=== PATIENT | female | born 1975 | race Caucasian/White ===

== ENCOUNTER 2023-12-24 18:33 | Observation (INO) | payer OTHER, SELFPAY ==
[2023-12-24 18:41] VITALS: BP 132/77; PULSE 66; TEMP 36.7; O2SAT 97; BMI 30.2
--- NOTE | 2023-12-24 18:49 | CT_ITS ---
[facility] [id number] Patient Name: KELLI LAKE MRN: [id number] date: 1975 Sex: F Assigned Patient Location: ER Current Patient Location: ER Accession/Order Number: [id number] Exam Date: 12/24/2023 19:28 Report Date: 12/24/2023 20:20 At the request of: CASS ENCINAS Procedure: CT abdomen pelvis w con EXAMINATION: CT abdomen pelvis w con, 12/24/2023 4:28 PM PDT HISTORY: rlq pain COMPARISON: None. TECHNIQUE: CT scan of the abdomen and pelvis was performed with IV contrast. CT dose reduction technique was used, including Automated Exposure Control. FINDINGS: Lung: No significant finding. Liver: No significant finding. Gallbladder: No significant finding. Spleen: No significant finding. Pancreas: No significant finding. Adrenal glands: No significant finding. Kidneys, ureters and bladder: No significant finding. Bowel: Wall thickening of the rectum. No evidence of bowel obstruction. Normal appendix. Mild wall thickening of the descending colon and sigmoid colon. Peritoneum/retroperitoneum: No significant finding. Lymph nodes: No significant finding. Vessels: No significant finding. Body wall: No significant finding. Reproductive: No significant finding. Bones: Severe thoracic scoliosis and partially imaged spinal hardware. CT/CT abdomen pelvis w con IMPRESSION: Proctitis and colitis of the descending and sigmoid colon. Normal appendix. Electronically authenticated by: MILTON BRAMBILA Date: 12/24/2023 20:20
[2023-12-24] MEDS: ONDANSETRON PF 4 MG/2 ML VIAL IV (19:02)
[2023-12-24] MEDS: 0.9 % SODIUM CHLORIDE 1,000 ML 1000 ML IV (19:02)
[2023-12-24 19:11] LABS: Basophils Absolute Auto 0.1 10^3/uL (0.0-0.1); Basophils Percent Auto 0.5 % (0.2-2.0); Eosinophils Percent Auto 0.2 % (0.9-7.0); Hematocrit 36.8 % (36.0-48.0); Hemoglobin 11.1 g/dL (12.0-16.0); Immature Granulocytes Abs Auto 0.03 10^3/uL (0.00-0.03); Immature Granulocytes Pct Auto 0.2 % (0.0-0.5); Lymphocytes Percent Auto 7.8 % (20.5-60.0); Mean Corpuscular HGB Conc 30.2 g/dL (29.9-35.2); Mean Corpuscular Hemoglobin 23.7 pg (26.7-34.0); Mean Corpuscular Volume 78.6 fL (81.0-99.0); Mean Platelet Volume 10.6 fL (9.5-13.5); Monocytes Absolute Auto 0.2 10^3/uL (0.3-0.8); Monocytes Percent Auto 1.9 % (1.7-12.0); Neutrophils Absolute Auto 10.9 10^3/uL (1.4-6.5); Neutrophils Percent Auto 89.4 % (43.0-75.0); Platelet Count 299 10^3/uL (150-450); Red Blood Count 4.68 10^6/uL (4.20-5.40); Red Cell Distribution Width 17.3 % (11.0-15.0); White Blood Count 12.2 10^3/uL (4.0-11.0)
[2023-12-24 19:26] LABS: Anion Gap 10.7; Carbon Dioxide 25.8 mmol/L (21.0-32.0); Chloride 102 mmol/L (98-107); Estimated GFR (African America >60 (>=60); Glucose 110 mg/dL (74-106); Potassium 3.5 mmol/L (3.5-5.1); Sodium 135 mmol/L (136-145)
[2023-12-24 19:27] LABS: Alanine Aminotransferase 24 U/L (14-59); Albumin Globulin Ratio 0.8; Alkaline Phosphatase 86 U/L (46-116); Aspartate Amino Transferase 21 U/L (15-37); BUN Creatinine Ratio 5.6; Bilirubin Total 0.4 mg/dL (0.2-1.0); Calcium 9.3 mg/dL (8.5-10.1); Estimated GFR (Non-African Ame >60 (>=60); Globulin 4.8 g/dL; Total Protein 8.8 g/dL (6.4-8.2)
[2023-12-24] MEDS: KETOROLAC TROMETHAMINE 30 MG/ML VIAL IVP (19:39)
[2023-12-24] MEDS: PROMETHAZINE HCL 25 MG/ML VIAL 12.5 MG IV (19:50)
[2023-12-24] MEDS: MORPHINE SULFATE 2 MG/ML SYRINGE IV (20:27)
--- NOTE | 2023-12-24 20:30 | ED_ITS ---
HPI - Abdominal Pain General Chief Complaint: Abdominal Pain Stated Complaint: nausea/vomitting Time Seen by Provider: 12/24/23 18:43 Source: patient Mode of arrival: walk-in Limitations: no limitations History of Present Illness HPI narrative: 48-year-old female presents here with chief complaint of acute onset of abdominal pain. Patient states pain began several hours prior to arrival. She complains of centralized abdominal pain. She states she has had a lot of stool today. Most pain nausea vomiting began after she ate tomato soup earlier today. Patient does appear uncomfortable. She is not toxic. She is not febrile. Related Data Home Medications ?Medication ?Instructions ?Recorded ?Confirmed escitalopram oxalate 5 mg tablet mg 12/24/23 Allergies Allergy/AdvReac Type Severity Reaction Status Date / Time No Known Drug Allergies Allergy Verified 12/24/23 18:41 Review of Systems ROS Narrative All Systems are negative except as noted/marked.All systems reviewed and otherwise negative Exam Narrative Exam Narrative: Nurses note and vital signs reviewed and patient is not hypoxic. General: The patient appears well and in no apparent distress. Patient is resting comfortably on cart. Skin: Warm, dry, no pallor noted. There is no rash noted. Head: Normocephalic, atraumatic Eye: Normal conjunctiva, no drainage, EOMI. PERRL Ears, Nose, Mouth, and Throat: oral mucosa is moist. Nares patent. Mouth without vesicles. Ear canals patent. Tm's without Erythema Cardiovascular: Regular Rate and Rhythm Respiratory: Patient is in no distress, no accessory muscle use, lungs are clear to auscultation, no wheezing, rales or rhonchi Back: non-tender, no CVA tenderness bilaterally to percussion. GI: diffuse abdominal tenderness, Normal bowel sounds, no masses appreciated. No rebound, guarding, or rigidity noted. Musculoskeletal: The patient has no evidence of calf tenderness, no pitting edema, symmetrical pulses noted bilaterally Neurological: A&O x4, normal speech Psychiatric: Cooperative Constitutional Vital Signs, click to edit/add: Last Vital Signs Temp 98.0 F 12/24/23 18:41 Pulse 66 12/24/23 18:41 Resp 16 12/24/23 18:41 BP 132/77 12/24/23 18:41 Pulse Ox 97 12/24/23 18:41 Course Vital Signs Vital signs: Vital Signs Temperature 98.0 F 12/24/23 18:41 Pulse Rate 66 12/24/23 18:41 Respiratory Rate 16 12/24/23 18:41 Blood Pressure 132/77 12/24/23 18:41 Pulse Oximetry 97 12/24/23 18:41 Temperature 98.0 F 12/24/23 18:41 Pulse Rate 66 12/24/23 18:41 Respiratory Rate 16 12/24/23 18:41 Blood Pressure 132/77 12/24/23 18:41 Pulse Oximetry 97 12/24/23 18:41 MDM - Abdominal Pain MDM Narrative Medical decision making narrative: 48-year-old female was brought to the emergency room chief complaint of nausea, vomiting abdominal pain and diarrhea. Patient presented here accompanied with her mother. She denies any known history of colitis. Upon arrival here to the emergency room patient had IV established was given fluids pain and Zofran. Symptoms did improve. CT scan was done and showed she has proctitis and colitis. IV Cipro and Flagyl have been ordered. Patient is not comfortable being discharged home. CBC and CMP were reviewed. Patient has a slightly low sodium 135 and a white blood cell count of 12. Differential Diagnosis Differential diagnosis: Likely abdominal pain, diverticulitis and gastroenteritis Medical Records Attestation: I reviewed the patient's medical records. Lab Data Attestation: I reviewed the patient's lab results. Labs: Lab Results 12/24/23 Range/Units 19:00 WBC 12.2 H (4.0-11.0) 10^3/uL RBC 4.68 (4.20-5.40) 10^6/uL Hgb 11.1 L (12.0-16.0) g/dL Hct 36.8 (36.0-48.0) % MCV 78.6 L (81.0-99.0) fL MCH 23.7 L (26.7-34.0) pg MCHC 30.2 (29.9-35.2) g/dL RDW 17.3 H (11.0-15.0) % Plt Count 299 (150-450) 10^3/uL MPV 10.6 (9.5-13.5) fL Neut % (Auto) 89.4 H (43.0-75.0) % Lymph % (Auto) 7.8 L (20.5-60.0) % [place] % (Auto) 1.9 (1.7-12.0) % Eos % (Auto) 0.2 L (0.9-7.0) % Baso % (Auto) 0.5 (0.2-2.0) % Neut # (Auto) 10.9 H (1.4-6.5) 10^3/uL Lymph # (Auto) 1.0 L (1.2-3.8) 10^3/uL [place] # (Auto) 0.2 L (0.3-0.8) 10^3/uL Eos # (Auto) 0.0 (0.0-0.7) 10^3/uL Baso # (Auto) 0.1 (0.0-0.1) 10^3/uL Abs Immat Gran (auto) 0.03 (0.00-0.03) 10^3/uL Imm/Tot Granulo (auto) 0.2 (0.0-0.5) % Sodium 135 L (136-145) mmol/L Potassium 3.5 (3.5-5.1) mmol/L Chloride 102 (98-107) mmol/L Carbon Dioxide 25.8 (21.0-32.0) mmol/L Anion Gap 10.7 BUN 5.0 L (7.0-18.0) mg/dL Creatinine 0.90 (0.55-1.02) mg/dL Est GFR ( Amer) >60 (>=60) Est GFR (Non-Af Amer) >60 (>=60) BUN/Creatinine Ratio 5.6 Glucose 110 H (74-106) mg/dL Calcium 9.3 (8.5-10.1) mg/dL Total Bilirubin 0.4 (0.2-1.0) mg/dL AST 21 (15-37) U/L ALT 24 (14-59) U/L Alkaline Phosphatase 86 (46-116) U/L Total Protein 8.8 H (6.4-8.2) g/dL Albumin 4.0 (3.4-5.0) g/dL Globulin 4.8 g/dL Albumin/Globulin Ratio 0.8 Lipase 55.0 (16.0-77.0) U/L Imaging Data CT scan - abdomen: Radiologist's impression: ITS Impressions Abdomen/Pelvis CT 05/03/24 18:49 IMPRESSION: Proctitis and colitis of the descending and sigmoid colon. Normal appendix. Electronically authenticated by: MILTON BRAMBILA Date: 12/24/2023 20:20 Discharge Plan Discharge Chief Complaint: Abdominal Pain Clinical Impression: Acute proctitis, Colitis Patient Disposition: Admitted as Observation Time of Disposition Decision: 20:46 Condition: Fair
[2023-12-24] MEDS: METRONIDAZOLE/SODIUM CHLORIDE 500 MG/100 ML PREMIX 100 MG IV (20:48)
[2023-12-24] MEDS: CIPROFLOXACIN IN 5 % DEXTROSE 400 MG/200 ML PIGGYBACK 200 MG IV (21:39)
[2023-12-24 22:23] VITALS: BP 143/74; PULSE 64; TEMP 36.6; O2SAT 100
[2023-12-24] MEDS: HYDROMORPHONE HCL 0.5 MG/0.5 ML SYRINGE IV (22:27)
[2023-12-24 22:48] VITALS: BP 140/62; PULSE 56; TEMP 36.3; O2SAT 98; BMI 28.7
[2023-12-24] MEDS: 0.9 % SODIUM CHLORIDE 1,000 ML 125 ML IV (23:42)
[2023-12-25] MEDS: ONDANSETRON PF 4 MG/2 ML VIAL IV ×3 (02:04→16:37)
[2023-12-25 03:17] VITALS: BP 145/78; PULSE 50; TEMP 36.7; O2SAT 96
[2023-12-25] MEDS: KETOROLAC TROMETHAMINE 30 MG/ML VIAL 15 MG IVP ×3 (03:33→16:36)
[2023-12-25] MEDS: METRONIDAZOLE/SODIUM CHLORIDE 500 MG/100 ML PREMIX 100 MG IV (05:24)
[2023-12-25 05:37] LABS: Hematocrit 32.3 % (36.0-48.0); Hemoglobin 9.7 g/dL (12.0-16.0); Mean Corpuscular Hemoglobin 23.8 pg (26.7-34.0); Mean Corpuscular Volume 79.2 fL (81.0-99.0); Platelet Count 232 10^3/uL (150-450); Red Blood Count 4.08 10^6/uL (4.20-5.40); Red Cell Distribution Width 17.3 % (11.0-15.0); White Blood Count 11.9 10^3/uL (4.0-11.0)
[2023-12-25 05:48] LABS: Anion Gap 17.8; BUN Creatinine Ratio 5.8; Carbon Dioxide 20.1 mmol/L (21.0-32.0); Chloride 102 mmol/L (98-107); Estimated GFR (African America >60 (>=60); Estimated GFR (Non-African Ame >60 (>=60); Glucose 157 mg/dL (74-106); Potassium 3.9 mmol/L (3.5-5.1); Sodium 136 mmol/L (136-145)
[2023-12-25 08:13] VITALS: BP 146/73; PULSE 65; TEMP 36.9; O2SAT 99
[2023-12-25] MEDS: 0.9 % SODIUM CHLORIDE 1,000 ML 125 ML IV (08:27)
[2023-12-25] MEDS: MORPHINE SULFATE 2 MG/ML SYRINGE IV (08:27)
[2023-12-25] MEDS: ENOXAPARIN SODIUM 40 MG/0.4 ML SYRINGE SUBQ (10:30)
[2023-12-25] MEDS: HYOSCYAMINE SULFATE 0.125 MG TAB.SUBL SL ×2 (10:30→13:45)
[2023-12-25] MEDS: ESCITALOPRAM 10 MG TABLET 5 MG PO (10:30)
[2023-12-25] MEDS: PANTOPRAZOLE SODIUM 40 MG VIAL IV (10:31)
[2023-12-25] MEDS: CEFTRIAXONE 1,000 MG in 0.9 % SODIUM CHLORIDE 50 ML 100 MG IV (10:34)
[2023-12-25 11:49] VITALS: O2SAT 98
--- NOTE | 2023-12-25 11:51 | PM.HP ---
HPI H&P: HPI History of Present Illness Chief complaint: nausea/vomitting Acute proetitis colitis Narrative: HPI and Hospital Course: 48 y o female presented to ED with one day hx of non bloody/non bilious vomiting along with watery diarrhea and generalized abdominal pain. She was evaluated in ED last night and admitted for intractable nausea/vomiting and abdominal pain due to colitis. Patient when seen earlier today was reporting poorly controlled left sided abdominal pain. She also reported loss of appetite and feeling nauseous. She did not have any diarrhea overnight but vomited once since admission She was treated with IV hydration, zofran as needed for nausea, levsin for abdominal pain and rocephin plus flagly for colitis. She was reassess in the afternoon and patient reported feeling better than earlier today. She tolerated soft diet. Her nasuea and abdominal pain was better compared to in the morning. Since her symptoms improved, I discussed with the patient and I feel she is medically stable for discharge. She was instructed to return to ED if symptoms worsened. Opioid HPI Opioid Management Most Recent Opioid Data: Last Pain Scale 4 12/25/23 13:00 Last Pain Assessment 12/25/23 13:00 Last ED Pain Assessment 12/24/23 22:24 Last MAR Pain Assessment 12/25/23 11:31 Last ORT Total Score 5 12/24/23 22:48 Last ORT Risk Category Moderate Risk 12/24/23 22:48 Review of Systems ROS Status of ROS 10 or more systems reviewed and unremarkable except as noted in history and below [facility] Medical History (Updated 12/25/23 @ 14:08 by Shaikh Suleman MD) 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 of left artificial elbow joint (ICD-10) Scoliosis ?M41.9 - Scoliosis, unspecified (ICD-10) Family History (Updated 12/24/23 @ 23:13 by Emelina Espinoza) Mother Family history of CHF (congestive heart failure) Family history of cancer Family history of hypertension Family history of myocardial infarction Family history of stroke Father Family history of cancer Social History (Updated 12/24/23 @ 23:15 by Emelina Espinoza) Within the past year, how often did you have a drink containing alcohol: monthly or less Within the past year, how often did you have six or more drinks on one occasion: less than monthly Smoking status: Former smoker Non-prescribed substance use: cannabis (any form) Previous occupational history: Does not Work Known occupational exposures/hazards: No Highest level of school completed/degree received: high school graduate Do you want help with school or training: No Are you now , , , , never or living with a partner: never In a typical week, how many times do you talk on the telephone with family, friends, or neighbors: 3 or more times per week How often do you get together with friends or relatives: 3 or more times per week How often do you attend restorationism or mormonism services: never Do you belong to any clubs or organizations such as restorationism groups unions, [employer] or athletic groups, or school groups: no Total score: 1 Score interpretation: A score of less than or equal to 1 indicates the most socially isolated. Little interest or pleasure in doing things: not at all Feeling down, depressed, or hopeless: not at all Feel stressed/tense/nervous/anxious/difficulty sleeping: not at all Due to disability, difficulty making decisions: No Do you think of yourself as: straight/heterosexual Gender Identity: female Meds Home Medications and Allergies Home Medications ?Medication ?Instructions ?Recorded ?Confirmed ?Type escitalopram oxalate 5 mg tablet 5 mg PO DAILY 12/24/23 12/25/23 History Allergies Allergy/AdvReac Type Severity Reaction Status Date / Time No Known Drug Allergies Allergy Verified 12/24/23 18:41 Exam Constitutional Vital Signs, click to edit/add: Last Vital Signs Temp 98.4 F 12/25/23 08:13 Pulse 65 12/25/23 08:13 Resp 18 12/25/23 08:13 BP 146/73 H 12/25/23 08:13 Pulse Ox 98 12/25/23 11:49 O2 Del Method Room Air 12/25/23 11:49 Common normals: no apparent distress, average body habitus and oriented x3 General appearance: cooperative and comfortable Respiratory Common normals: normal respiratory effort, no use of accessory muscles and clear to auscultation bilaterally Effort & inspection: able to speak in complete sentences GI Common normals: Normal to inspection, nondistended, normoactive bowel sounds present, soft to palpation, non-tender and no hepatosplenomegaly Back & Pelvis Other: severe scoliosis of spine Extremity Common normals: normal to inspection and full ROM Neuro Common normals: oriented x3, moves all extremities, no focal motor deficits and no sensory deficits noted Psych Common normals: mental status grossly normal, thought process normal, denies homicidal ideation and denies suicidal ideation Results Labs Labs: Short CBC 12/24/23 12/25/23 Range/Units 19:00 05:00 WBC 12.2 H 11.9 H (4.0-11.0) 10^3/uL Hgb 11.1 L 9.7 L (12.0-16.0) g/dL Hct 36.8 32.3 L (36.0-48.0) % Plt Count 299 232 (150-450) 10^3/uL BMP 12/24/23 12/25/23 19:00 05:00 Sodium 135 L 136 Potassium 3.5 3.9 Chloride 102 102 Carbon Dioxide 25.8 20.1 L BUN 5.0 L 5.0 L Creatinine 0.90 0.86 Glucose 110 H 157 H Calcium 9.3 9.0 Liver Function 12/24/23 Range/Units 19:00 Total Bilirubin 0.4 (0.2-1.0) mg/dL AST 21 (15-37) U/L ALT 24 (14-59) U/L Alkaline Phosphatase 86 (46-116) U/L Albumin 4.0 (3.4-5.0) g/dL Assessment and Plan Assessment and Plan (1) Nausea and vomiting: Qualifiers: Vomiting type: unspecified Qualified Code(s): R11.2 - Nausea with vomiting, unspecified (2) Colitis: (3) Acute proctitis: (4) Dehydration: (5) Abdominal pain: Qualifiers: Abdominal location: left lower quadrant Qualified Code(s): R10.32 - Left lower quadrant pain Plan Patient presented with nausea, vomiting, diarrhea and abdominal pain. Work up revealed left sided colitis and proctitis. Patient treated with IV fluids, anti emetics and IV abx. Patient's symptoms improved. She tolerated PO diet with resolution of her abdominal pain, nausea and vomiting. Stable for discharge. Patient educated on worrisome signs and symptoms that should prompt her to seek care Will d/c on PO abx. Patient asked to follow up with PCP in one week
[2023-12-25] MEDS: METRONIDAZOLE 250 MG TABLET 500 MG PO (13:45)
--- NOTE | 2023-12-27 15:24 | CM.DCFOLLOWU ---
Person spoke with: patient How are you feeling? better How is your pain? no pain now Did you understand your discharge instructions? yes Do you have any questions about your discharge instructions? no Were you given any prescriptions at discharge? yes Were you able to get your prescriptions filled? yes Do you understand how to take your medications as ordered? yes Do you have any questions about your follow up appointment and do you plan to keep your follow up appointment? no questions, will call PCP tomorrow to schedule follow up Is there anything else that you would like to discuss? no Questions/Comments/Concerns/Other: N/A
== END 2023-12-25 17:00 | disposition home or self-care (01) ==
LOC: ER 22:34 → MS 22:43
PROVIDERS: Physician Assistant; Registered Nurse; Admitting Provider Internal Medicine; Emergency Provider Emergency Medicine; PCP Nurse Practitioner Family; Visit Provider Internal Medicine
DX: K52.9 Noninfective gastroenteritis and colitis, unspecified (principal); K62.89 Other specified diseases of anus and rectum; E86.0 Dehydration; R10.32 Left lower quadrant pain; R11.2 Nausea with vomiting, unspecified; Z96.622 Presence of left artificial elbow joint; M41.9 Scoliosis, unspecified; Z87.891 Personal history of nicotine dependence; F12.90 Cannabis use, unspecified, uncomplicated; Z79.899 Other long term (current) drug therapy
CPT/HCPCS: 36415; 74177; 80048; 80053; 83690; 85025; 85027; 94761; 96361; 96365; 96366; 96367; 96372; 96375; 96376; 99285; G0378; J1170; Q9967

== ENCOUNTER 2023-12-27 07:46 | Emergency (ER) | payer OTHER, SELFPAY ==
[2023-12-27 07:49] VITALS: BP 153/78; PULSE 56; TEMP 36.5; O2SAT 99; BMI 30.2
--- NOTE | 2023-12-27 08:00 | ED_ITS ---
HPI - Abdominal Pain General Chief Complaint: Abdominal Pain Stated Complaint: ABDOMINAL PAIN Time Seen by Provider: 12/27/23 07:53 Source: patient Mode of arrival: walk-in Limitations: no limitations History of Present Illness HPI narrative: 48-year-old female presents for abdominal pain. 3 days ago she presented to this emergency department and was diagnosed with colitis and proctitis. She was admitted overnight and was given IV antibiotics. She went home 2 days ago and was discharged home on oral antibiotics. The pain persists and is moderate. No hematemesis or fever or injury. Related Data Home Medications ?Medication ?Instructions ?Recorded ?Confirmed escitalopram oxalate 5 mg tablet 5 mg PO DAILY 12/24/23 12/27/23 Previous Rx's ?Medication ?Instructions ?Recorded ciprofloxacin HCl 500 mg tablet 500 mg PO BID 7 days #14 tabs 12/25/23 hyoscyamine sulfate 0.125 mg 0.125 mg PO Q8H PRN dyspepsia #30 12/25/23 sublingual tablet (Levsin/SL) tabs metronidazole 500 mg tablet 500 mg PO Q8H 7 days #21 tabs 12/25/23 ondansetron HCl 4 mg tablet 4 mg PO Q8H PRN nausea and 12/25/23 vomiting 4 days #10 tabs hydrocodone 5 mg-acetaminophen 325 1 tab PO Q6H PRN pain 5 days #20 12/27/23 mg tablet tabs ondansetron 4 mg disintegrating 4 mg PO Q6H PRN nausea and 12/27/23 tablet vomiting #20 tabs Allergies Allergy/AdvReac Type Severity Reaction Status Date / Time No Known Drug Allergies Allergy Verified 12/27/23 07:54 Review of Systems ROS Narrative A ten point review of systems is negative except as noted above. PFSH [facility] Medical History (Updated 12/27/23 @ 09:48 by Will Castañeda MD) 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 of left artificial elbow joint (ICD-10) Scoliosis ?M41.9 - Scoliosis, unspecified (ICD-10) Family History (Updated 12/24/23 @ 23:13 by Emelina Espinoza) Mother Family history of CHF (congestive heart failure) Family history of cancer Family history of hypertension Family history of myocardial infarction Family history of stroke Father Family history of cancer Social History (Updated 05/03/24 @ 23:15 by Emelina Espinoza) Within the past year, how often did you have a drink containing alcohol: monthly or less Within the past year, how often did you have six or more drinks on one occasion: less than monthly Smoking status: Former smoker Non-prescribed substance use: cannabis (any form) Previous occupational history: Does not Work Known occupational exposures/hazards: No Highest level of school completed/degree received: high school graduate Do you want help with school or training: No Are you now , , , , never or living with a partner: never In a typical week, how many times do you talk on the telephone with family, friends, or neighbors: 3 or more times per week How often do you get together with friends or relatives: 3 or more times per week How often do you attend rastafari or cheondoism services: never Do you belong to any clubs or organizations such as rastafari groups unions, fraternal or athletic groups, or school groups: no Total score: 1 Score interpretation: A score of less than or equal to 1 indicates the most socially isolated. Little interest or pleasure in doing things: not at all Feeling down, depressed, or hopeless: not at all Feel stressed/tense/nervous/anxious/difficulty sleeping: not at all Due to disability, difficulty making decisions: No Do you think of yourself as: straight/heterosexual Gender Identity: female Exam Narrative Exam Narrative: Nurses note and vital signs reviewed and patient is not hypoxic. General: The patient appears well and in no apparent distress. Patient is resting comfortably on cart. Skin: Warm, dry, no pallor noted. There is no rash noted. Head: Normocephalic, atraumatic Eye: Normal conjunctiva, no drainage Ears, Nose, Mouth, and Throat: oral mucosa is moist. Nares patent. Cardiovascular: Regular Rate and Rhythm Respiratory: Patient is in no distress, no accessory muscle use, lungs are clear to auscultation, no wheezing, rales or rhonchi Back: non-tender, no CVA tenderness bilaterally to percussion. GI: Soft and nondistended. She has mid abdominal tenderness without rebound guarding or mass. Musculoskeletal: The patient has no evidence of calf tenderness, no pitting edema, symmetrical pulses noted bilaterally Neurological: A&O, normal speech Psychiatric: Cooperative Constitutional Vital Signs, click to edit/add: Last Vital Signs Temp 97.7 F 12/27/23 07:49 Pulse 50 L 12/27/23 09:11 Resp 16 12/27/23 09:11 BP 160/83 H 12/27/23 09:11 Pulse Ox 96 12/27/23 09:11 O2 Del Method Room Air 12/27/23 09:11 Course Vital Signs Vital signs: Vital Signs Temperature 97.7 F 12/27/23 07:49 Pulse Rate 56 L 12/27/23 07:49 Respiratory Rate 16 12/27/23 07:49 Blood Pressure 153/78 H 12/27/23 07:49 Pulse Oximetry 99 12/27/23 07:49 Oxygen Delivery Method Room Air 12/27/23 07:49 Temperature 97.7 F 12/27/23 07:49 Pulse Rate 50 L 12/27/23 09:11 Respiratory Rate 16 12/27/23 09:11 Blood Pressure 160/83 H 12/27/23 09:11 Pulse Oximetry 96 12/27/23 09:11 Oxygen Delivery Method Room Air 12/27/23 09:11 MDM - Abdominal Pain MDM Narrative Medical decision making narrative: Blood work is nonspecific. White count is at her baseline. I do not feel that she needs to be readmitted to the hospital and the case was discussed with Dr. Shell and he agrees. She did not have anything for pain at home and is being prescribed [place]. She was also given a dose of IV Cipro and Flagyl here, IV. Treatment diagnosis and follow-up were discussed with the patient. Differential Diagnosis Differential diagnosis: Likely other (Colitis, proctitis, dehydration) Lab Data Attestation: I reviewed the patient's lab results. Labs: Lab Results 12/27/23 Range/Units 08:09 WBC 11.9 H (4.0-11.0) 10^3/uL RBC 4.68 (4.20-5.40) 10^6/uL Hgb 11.2 L (12.0-16.0) g/dL Hct 35.4 L (36.0-48.0) % MCV 75.6 L (81.0-99.0) fL MCH 23.9 L (26.7-34.0) pg MCHC 31.6 (29.9-35.2) g/dL RDW 17.2 H (11.0-15.0) % Plt Count 218 (150-450) 10^3/uL MPV 10.9 (9.5-13.5) fL Neut % (Auto) 83.3 H (43.0-75.0) % Lymph % (Auto) 9.2 L (20.5-60.0) % [place] % (Auto) 7.0 (1.7-12.0) % Eos % (Auto) 0.1 L (0.9-7.0) % Baso % (Auto) 0.1 L (0.2-2.0) % Neut # (Auto) 9.9 H (1.4-6.5) 10^3/uL Lymph # (Auto) 1.1 L (1.2-3.8) 10^3/uL [place] # (Auto) 0.8 (0.3-0.8) 10^3/uL Eos # (Auto) 0.0 (0.0-0.7) 10^3/uL Baso # (Auto) 0.0 (0.0-0.1) 10^3/uL Abs Immat Gran (auto) 0.04 H (0.00-0.03) 10^3/uL Imm/Tot Granulo (auto) 0.3 (0.0-0.5) % Sodium 130 L (136-145) mmol/L Potassium 3.2 L (3.5-5.1) mmol/L Chloride 91 L (98-107) mmol/L Carbon Dioxide 27.4 (21.0-32.0) mmol/L Anion Gap 14.8 BUN 9.0 (7.0-18.0) mg/dL Creatinine 0.89 (0.55-1.02) mg/dL Est GFR ( Amer) >60 (>=60) Est GFR (Non-Af Amer) >60 (>=60) BUN/Creatinine Ratio 10.1 Glucose 101 (74-106) mg/dL Calcium 9.3 (8.5-10.1) mg/dL Serum HCG, Qual Negative (NEGATIVE) Discharge Plan Discharge Stand Alone Forms: Portal Instructions Chief Complaint: Abdominal Pain Clinical Impression: Colitis Patient Disposition: Home, Self-Care Time of Disposition Decision: 09:48 Condition: Good Mode of Transportation: Private Vehicle Prescriptions / Home Meds: New hydrocodone-acetaminophen 5-325 mg tablet 1 tab PO Q6H PRN (Reason: pain) 5 Days Qty: 20 0RF ondansetron 4 mg tablet,disintegrating 4 mg PO Q6H PRN (Reason: nausea and vomiting) Qty: 20 0RF No Action escitalopram oxalate 5 mg tablet 5 mg PO DAILY ciprofloxacin HCl 500 mg tablet 500 mg PO BID 7 Days Qty: 14 0RF metronidazole 500 mg tablet 500 mg PO Q8H 7 Days Qty: 21 0RF ondansetron HCl 4 mg tablet 4 mg PO Q8H PRN (Reason: nausea and vomiting) 4 Days Qty: 10 0RF hyoscyamine sulfate [Levsin/SL] 0.125 mg tablet, sublingual 0.125 mg PO Q8H PRN (Reason: dyspepsia) Qty: 30 0RF Print Language: Gib[place] Instructions: Colitis (ED) Referrals: ANDREW JUAREZ [Primary Care Provider] - 1 week
[2023-12-27] MEDS: ONDANSETRON PF 4 MG/2 ML VIAL IV (08:20)
[2023-12-27] MEDS: 0.9 % SODIUM CHLORIDE 1,000 ML 1000 ML IV (08:20)
[2023-12-27] MEDS: MORPHINE SULFATE 4 MG/ML VIAL IV (08:20)
[2023-12-27 08:21] LABS: Basophils Percent Auto 0.1 % (0.2-2.0); Eosinophils Percent Auto 0.1 % (0.9-7.0); Hematocrit 35.4 % (36.0-48.0); Hemoglobin 11.2 g/dL (12.0-16.0); Immature Granulocytes Abs Auto 0.04 10^3/uL (0.00-0.03); Immature Granulocytes Pct Auto 0.3 % (0.0-0.5); Lymphocytes Absolute Auto 1.1 10^3/uL (1.2-3.8); Lymphocytes Percent Auto 9.2 % (20.5-60.0); Mean Corpuscular HGB Conc 31.6 g/dL (29.9-35.2); Mean Corpuscular Hemoglobin 23.9 pg (26.7-34.0); Mean Corpuscular Volume 75.6 fL (81.0-99.0); Mean Platelet Volume 10.9 fL (9.5-13.5); Monocytes Absolute Auto 0.8 10^3/uL (0.3-0.8); Neutrophils Absolute Auto 9.9 10^3/uL (1.4-6.5); Neutrophils Percent Auto 83.3 % (43.0-75.0); Platelet Count 218 10^3/uL (150-450); Red Blood Count 4.68 10^6/uL (4.20-5.40); Red Cell Distribution Width 17.2 % (11.0-15.0); White Blood Count 11.9 10^3/uL (4.0-11.0)
[2023-12-27 08:26] LABS: HCG Qualitative NEGATIVE (NEGATIVE)
[2023-12-27 08:33] LABS: Anion Gap 14.8; BUN Creatinine Ratio 10.1; Calcium 9.3 mg/dL (8.5-10.1); Carbon Dioxide 27.4 mmol/L (21.0-32.0); Chloride 91 mmol/L (98-107); Estimated GFR (African America >60 (>=60); Estimated GFR (Non-African Ame >60 (>=60); Glucose 101 mg/dL (74-106); Potassium 3.2 mmol/L (3.5-5.1); Sodium 130 mmol/L (136-145)
[2023-12-27 08:45] VITALS: PULSE 51; O2SAT 98
[2023-12-27 09:11] VITALS: BP 160/83; PULSE 50; O2SAT 96
[2023-12-27] MEDS: CIPROFLOXACIN IN 5 % DEXTROSE 400 MG/200 ML PIGGYBACK 200 MG IV (09:52)
[2023-12-27 10:09] VITALS: BP 132/74; PULSE 51; O2SAT 100
[2023-12-27] MEDS: METRONIDAZOLE/SODIUM CHLORIDE 500 MG/100 ML PREMIX 100 MG IV (11:01)
[2023-12-27 11:08] VITALS: BP 131/78; PULSE 56; O2SAT 99
== END 2023-12-27 12:06 | disposition home or self-care (01) ==
PROVIDERS: Emergency Provider Emergency Medicine; PCP Nurse Practitioner Family
DX: K52.9 Noninfective gastroenteritis and colitis, unspecified (principal); Z96.622 Presence of left artificial elbow joint; M41.9 Scoliosis, unspecified; Z87.891 Personal history of nicotine dependence
CPT/HCPCS: 36415; 80048; 84703; 85025; 96361; 96365; 96367; 96375; 99284

== ENCOUNTER 2024-01-10 12:53 | Inpatient (IN) | payer OTHER, SELFPAY ==
[2024-01-10 13:11] VITALS: BP 127/73; PULSE 65; TEMP 37.1; O2SAT 99; BMI 28.3
--- NOTE | 2024-01-10 13:21 | CT_ITS ---
[address] [address] Patient Name: KELLI LAKE MRN: [id number] date: 1975 Sex: F Assigned Patient Location: ER Current Patient Location: Accession/Order Number: [id number] Exam Date: 01/10/2024 14:30 Report Date: 01/10/2024 14:59 At the request of: LUDA GARZA Procedure: CT abdomen pelvis w con EXAMINATION: CT abdomen pelvis w con HISTORY: Abdominal pain , nausea and vomiting; history of colitis 2 weeks ago COMPARISON: CT abdomen pelvis 12/24/2023 TECHNIQUE: Axial, Coronal, and Sagittal images were obtained without and/or with IV contrast as indicated by examination type. Dose reduction techniques were achieved by using automated exposure control and/or adjustment of mA and/or kV according to patient size and/or use of iterative reconstruction technique. FINDINGS: LUNG BASES: No visible pulmonary or pleural disease. LIVER: No enlargement, atrophy, suspicious density, or significant focal lesion. BILIARY: No dilatation or calcification. PANCREAS: No lesion, fluid collection, or abnormal duct dilatation. SPLEEN: No enlargement or focal lesion. ADRENALS: No mass or enlargement. KIDNEYS: No mass, obstruction, or calcification. BOWEL/MESENTERY: Mild circumferential wall thickening of ascending colon, sigmoid colon, and rectum. Trace amount of free fluid within the pelvic cul-de-sac. No free air or bowel obstruction. AORTA/VASCULAR: No aneurysm or dissection. RETROPERITONEUM: No mass or adenopathy. LYMPH NODES: No adenopathy. URINARY BLADDER: No visible focal wall thickening, lesion, or calculus. PELVIC ORGANS: No visible mass. Pelvic organs appropriate for patient age. ABDOMINAL WALL: No mass or hernia. BONES: Marked scoliosis. No acute abnormality. OTHER: Negative. CT/CT abdomen pelvis w con IMPRESSION: 1. Suspect mild residual colitis involving the cecum, sigmoid, and rectal portions of the colon. Electronically authenticated by: JACQUES JADE Date: 01/10/2024 14:59
--- NOTE | 2024-01-10 13:29 | ED_ITS ---
HPI HPI - General Adult General Chief complaint: Abdominal Pain Stated complaint: ABDOMINAL PAIN, VOMITING Time Seen by Provider: 01/10/24 13:05 History of Present Illness HPI narrative: Patient is a 48-year-old female who returns to the emergency department for diffuse abdominal pain and vomiting. She states symptoms have returned in the last 2 days. She was seen in this emergency department on 12/23 and 12/26 of this month. She was diagnosed with Colitis and proctitis, she was admitted overnight for pain control for intractable pain and nausea. After being discharged, she returned to the ER 2 days later and found to have stable labs. She was treated with IV medications and discharged home. She states pain and symptoms have been improved and controlled until 2 days ago. She believes she finished her antibiotics at least 1 week ago, she completed Cipro and Flagyl. She states she has not been able to hold anything down today and she has severe upper abdominal pain diffusely. She denies urinary symptoms. No fevers. No previous abdominal surgeries. She is not not concerned for . She states she took a [place] prior to arrival for her symptoms and is unsure if she was able to hold this down or not. No diarrhea Related Data Home Medications ?Medication ?Instructions ?Recorded ?Confirmed escitalopram oxalate 5 mg tablet 5 mg PO DAILY 12/24/23 01/10/24 Previous Rx's ?Medication ?Instructions ?Recorded hyoscyamine sulfate 0.125 mg 0.125 mg PO Q8H PRN dyspepsia #30 12/25/23 sublingual tablet (Levsin/SL) tabs ondansetron HCl 4 mg tablet 4 mg PO Q8H PRN nausea and 12/25/23 vomiting 4 days #10 tabs hydrocodone 5 mg-acetaminophen 325 1 tab PO Q6H PRN pain 5 days #20 12/27/23 mg tablet tabs ondansetron 4 mg disintegrating 4 mg PO Q6H PRN nausea and 12/27/23 tablet vomiting #20 tabs Allergies Allergy/AdvReac Type Severity Reaction Status Date / Time No Known Drug Allergies Allergy Verified 12/27/23 07:54 Opioid HPI Opioid Management Most Recent Opioid Data: Last Pain Scale 5 12/25/23 16:36 Last ORT Total Score 5 12/24/23 22:48 Last ORT Risk Category Moderate Risk 12/24/23 22:48 Review of Systems ROS Constitutional Denies: fever or chills Ears, nose, mouth, and throat Denies: throat pain or nasal congestion Cardiovascular Denies: chest pain Respiratory Denies: shortness of breath Gastrointestinal Reports: abdominal pain, nausea and vomiting; Denies: diarrhea Genitourinary Denies: painful urination Musculoskeletal Denies: back pain or neck pain Integumentary/Breast Denies: rash Neurological Denies: headache Hematologic/Lymphatic Denies: easy bruising or easy bleeding PFSH PFSH Medical History (Updated 01/10/24 @ 15:43 by DANNY Moore) Colitis ?K52.9 - Noninfective gastroenteritis and colitis, unspecified (ICD-10) Acute proctitis ?K62.89 - Other specified diseases of anus and rectum (ICD-10) 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 of left artificial elbow joint (ICD-10) Scoliosis ?M41.9 - Scoliosis, unspecified (ICD-10) Family History (Updated 12/24/23 @ 23:13 by Emelina Espinoza) Mother Family history of CHF (congestive heart failure) Family history of cancer Family history of hypertension Family history of myocardial infarction Family history of stroke Father Family history of cancer Social History Within the past year, how often did you have a drink containing alcohol: monthly or less Within the past year, how often did you have six or more drinks on one occasion: less than monthly Smoking status: Former smoker Non-prescribed substance use: cannabis (any form) Previous occupational history: Does not Work Known occupational exposures/hazards: No Highest level of school completed/degree received: high school graduate Do you want help with school or training: No Are you now , , , , never or living with a partner: never In a typical week, how many times do you talk on the telephone with family, friends, or neighbors: 3 or more times per week How often do you get together with friends or relatives: 3 or more times per week How often do you attend adventist or oriental orthodox services: never Do you belong to any clubs or organizations such as adventist groups unions, fraternal or athletic groups, or school groups: no Total score: 1 Score interpretation: A score of less than or equal to 1 indicates the most socially isolated. Little interest or pleasure in doing things: not at all Feeling down, depressed, or hopeless: not at all Feel stressed/tense/nervous/anxious/difficulty sleeping: not at all Due to disability, difficulty making decisions: No Do you think of yourself as: straight/heterosexual Gender Identity: female Exam Narrative Exam Narrative: Gen.: Awake, alert, in no distress Head: Normocephalic, atraumatic ENT: Moist mucous membranes Respiratory: No respiratory distress, lungs clear bilaterally Cardio: Regular rate and rhythm Gastrointestinal: Abdomen is soft, nondistended and Diffusely tender to palpation of the bilateral upper quadrants of the abdomen and epigastrium with voluntary guarding, no rebound Extremities: Moves extremities equally Psych: Normal mood and affect Neuro: No focal neuro deficit Skin: Warm, dry, intact Constitutional Vital Signs, click to edit/add: Last Vital Signs Temp 98.7 F 01/10/24 13:11 Pulse 65 01/10/24 13:11 Resp 18 01/10/24 13:11 BP 127/73 01/10/24 13:11 Pulse Ox 99 01/10/24 13:11 Course Vital Signs Vital signs: Vital Signs Temperature 98.7 F 01/10/24 13:11 Pulse Rate 65 01/10/24 13:11 Respiratory Rate 18 01/10/24 13:11 Blood Pressure 127/73 01/10/24 13:11 Pulse Oximetry 99 01/10/24 13:11 Temperature 98.7 F 01/10/24 13:11 Pulse Rate 65 01/10/24 13:11 Respiratory Rate 18 01/10/24 13:11 Blood Pressure 127/73 01/10/24 13:11 Pulse Oximetry 99 01/10/24 13:11 Medical Decision Making [facility] Narrative Medical decision making narrative: Patient was initially medicated with IV fluids, IV Zofran and Pepcid as well as sublingual Levsin. She stated that she vomited the Levsin up after it was given. And she was still having significant nausea and pain. She was remedicated with 0.5 mg IV Dilaudid and Phenergan. She is in no distress on reevaluation by attending physician but states she is still in significant discomfort. Her lab studies are stable with elevated inflammatory markers and CT of the abdomen and pelvis shows the patient has suspected trace residual colitis. Discussed discharge home versus observation admission with the patient, she feels she needs to be admitted. She was admitted to Dr. Isaac for hospitalist service for observation for intractable abdominal pain and nausea and vomiting. Stable at time of admission with abdomen soft and benign and stable vital signs. Medical Records Medical records reviewed: Yes I reviewed the patient's medical records Lab Data Lab results reviewed: Yes I reviewed the patient's lab results Labs: Lab Results 01/10/24 Range/Units 13:22 WBC 12.5 H (4.0-11.0) 10^3/uL RBC 4.23 (4.20-5.40) 10^6/uL Hgb 10.5 L (12.0-16.0) g/dL Hct 33.7 L (36.0-48.0) % MCV 79.7 L (81.0-99.0) fL MCH 24.8 L (26.7-34.0) pg MCHC 31.2 (29.9-35.2) g/dL RDW 18.7 H (11.0-15.0) % Plt Count 286 (150-450) 10^3/uL MPV 10.9 (9.5-13.5) fL Neut % (Auto) 87.3 H (43.0-75.0) % Lymph % (Auto) 7.0 L (20.5-60.0) % [place] % (Auto) 4.2 (1.7-12.0) % Eos % (Auto) 0.4 L (0.9-7.0) % Baso % (Auto) 0.6 (0.2-2.0) % Neut # (Auto) 10.9 H (1.4-6.5) 10^3/uL Lymph # (Auto) 0.9 L (1.2-3.8) 10^3/uL [place] # (Auto) 0.5 (0.3-0.8) 10^3/uL Eos # (Auto) 0.1 (0.0-0.7) 10^3/uL Baso # (Auto) 0.1 (0.0-0.1) 10^3/uL Abs Immat Gran (auto) 0.06 H (0.00-0.03) 10^3/uL Imm/Tot Granulo (auto) 0.5 (0.0-0.5) % ESR 88 H (<=20) mm/hr Sodium 138 (136-145) mmol/L Potassium 3.4 L (3.5-5.1) mmol/L Chloride 100 (98-107) mmol/L Carbon Dioxide 25.3 (21.0-32.0) mmol/L Anion Gap 16.1 BUN 4.0 L (7.0-18.0) mg/dL Creatinine 0.89 (0.55-1.02) mg/dL Est GFR ( Amer) >60 (>=60) Est GFR (Non-Af Amer) >60 (>=60) BUN/Creatinine Ratio 4.5 Glucose 111 H (74-106) mg/dL Lactate 1.3 (0.4-2.0) mmol/L Calcium 9.2 (8.5-10.1) mg/dL Total Bilirubin 0.5 (0.2-1.0) mg/dL AST 17 (15-37) U/L ALT 12 L (14-59) U/L Alkaline Phosphatase 61 (46-116) U/L C-Reactive Protein 2.65 H (<=0.50) mg/dL Total Protein 7.9 (6.4-8.2) g/dL Albumin 3.5 (3.4-5.0) g/dL Globulin 4.4 g/dL Albumin/Globulin Ratio 0.8 Lipase 54.0 (16.0-77.0) U/L Serum HCG, Qual Negative (NEGATIVE) Discharge Plan Discharge Chief Complaint: Abdominal Pain Patient Disposition: Admitted as Observation Time of Disposition Decision: 15:43 Prescriptions / Home Meds: No Action escitalopram oxalate 5 mg tablet 5 mg PO DAILY ondansetron HCl 4 mg tablet 4 mg PO Q8H PRN (Reason: nausea and vomiting) 4 Days Qty: 10 0RF hyoscyamine sulfate [Levsin/SL] 0.125 mg tablet, sublingual 0.125 mg PO Q8H PRN (Reason: dyspepsia) Qty: 30 0RF hydrocodone-acetaminophen 5-325 mg tablet 1 tab PO Q6H PRN (Reason: pain) 5 Days Qty: 20 0RF ondansetron 4 mg tablet,disintegrating 4 mg PO Q6H PRN (Reason: nausea and vomiting) Qty: 20 0RF Print Language: Tamazight Referrals: ANDREW JUAREZ [Primary Care Provider] - 1 week
[2024-01-10] MEDS: 0.9 % SODIUM CHLORIDE 1,000 ML 1000 ML IV (13:30)
[2024-01-10] MEDS: HYOSCYAMINE SULFATE 0.125 MG TAB.SUBL SL ×2 (13:34→17:45)
[2024-01-10] MEDS: ONDANSETRON PF 4 MG/2 ML VIAL IV ×2 (13:34→22:16)
[2024-01-10] MEDS: FAMOTIDINE/PF 20 MG/2 ML VIAL IV (13:34)
[2024-01-10 14:08] LABS: Basophils Absolute Auto 0.1 10^3/uL (0.0-0.1); Basophils Percent Auto 0.6 % (0.2-2.0); Eosinophils Absolute Auto 0.1 10^3/uL (0.0-0.7); Eosinophils Percent Auto 0.4 % (0.9-7.0); Hematocrit 33.7 % (36.0-48.0); Hemoglobin 10.5 g/dL (12.0-16.0); Immature Granulocytes Abs Auto 0.06 10^3/uL (0.00-0.03); Immature Granulocytes Pct Auto 0.5 % (0.0-0.5); Lymphocytes Absolute Auto 0.9 10^3/uL (1.2-3.8); Mean Corpuscular HGB Conc 31.2 g/dL (29.9-35.2); Mean Corpuscular Hemoglobin 24.8 pg (26.7-34.0); Mean Corpuscular Volume 79.7 fL (81.0-99.0); Mean Platelet Volume 10.9 fL (9.5-13.5); Monocytes Absolute Auto 0.5 10^3/uL (0.3-0.8); Monocytes Percent Auto 4.2 % (1.7-12.0); Neutrophils Absolute Auto 10.9 10^3/uL (1.4-6.5); Neutrophils Percent Auto 87.3 % (43.0-75.0); Platelet Count 286 10^3/uL (150-450); Red Blood Count 4.23 10^6/uL (4.20-5.40); Red Cell Distribution Width 18.7 % (11.0-15.0); White Blood Count 12.5 10^3/uL (4.0-11.0)
[2024-01-10 14:11] LABS: HCG Qualitative NEGATIVE (NEGATIVE)
[2024-01-10 14:16] LABS: Lactate/Lactic Acid 1.3 mmol/L (0.4-2.0)
[2024-01-10 14:19] LABS: Erythrocyte Sedimentation Rate 88 mm/hr (<=20)
[2024-01-10 14:22] LABS: Alanine Aminotransferase 12 U/L (14-59); Albumin Globulin Ratio 0.8; Albumin Level 3.5 g/dL (3.4-5.0); Alkaline Phosphatase 61 U/L (46-116); Anion Gap 16.1; Aspartate Amino Transferase 17 U/L (15-37); BUN Creatinine Ratio 4.5; Bilirubin Total 0.5 mg/dL (0.2-1.0); Calcium 9.2 mg/dL (8.5-10.1); Carbon Dioxide 25.3 mmol/L (21.0-32.0); Chloride 100 mmol/L (98-107); Estimated GFR (African America >60 (>=60); Estimated GFR (Non-African Ame >60 (>=60); Globulin 4.4 g/dL; Glucose 111 mg/dL (74-106); Potassium 3.4 mmol/L (3.5-5.1); Sodium 138 mmol/L (136-145); Total Protein 7.9 g/dL (6.4-8.2)
[2024-01-10] MEDS: HYDROMORPHONE HCL 1 MG/ML CARTRIDGE 0.5 MG IVP (14:33)
[2024-01-10] MEDS: PROMETHAZINE HCL 25 MG in 0.9 % SODIUM CHLORIDE 50 ML 204 MG IV (14:33)
[2024-01-10 14:41] LABS: C Reactive Protein 2.65 mg/dL (<=0.50)
[2024-01-10 16:30] VITALS: BP 123/74; PULSE 74; TEMP 36.3; O2SAT 94; BMI 27.5
[2024-01-10 16:37] VITALS: BP 123/74; PULSE 74; TEMP 36.3; O2SAT 94
--- OUTSIDE RECORDS SUMMARY | 2024-01-10 16:39 | XMS_ITS | CCD ---
Author Organization [facility] Inform ion Partnership [facility] Care Team Providers Care Stripper Color Name Role Phone PANCHITO JUAREZ Admitting Unavailable PANCHITO JUAREZ Attending Unavailable LEONEL GARCIA Primary Care Unavailable PANCHITO JUAREZ Consulting Unavailable CLARK THOMAS Consulting Unavailable KAYLIN WEBSTER Consulting Unavailable ANDREW JUAREZ Attending Unavailable ANDREW JUAREZ Referring Unavailable ANDREW JUAREZ Primary Care Unavailable ANDREW JUAREZ Referring Unavailable ANDREW JUAREZ Primary Care Unavailable Problems Problem Classification Problem Date Documented Date Episodic/Chronic Chronic obstructive pulmonary disease and bronchiectasis (1 source) Bronchitis, not specified as acute or chronic; Translations: [BRONCHITIS NOT SPEC ACUTE/CHRON] Onset: 08-29-2019 Episodic Fever of unknown origin (1 source) Fever, unspecified; Translations: [FEVER UNSPECIFIED] Onset: 08-29-2019 Episodic Fluid and electrolyte disorders (2 sources) Hypokalemia; Translations: [Hypokalemia] Onset: 01-07-2024 Episodic Mood disorders (1 source) Major depressive disorder, single episode, unspecified; Translations: [Major depressive disorder, single episode, unspecified] Onset: 01-07-2024 Chronic Noninfectious gastroenteritis (1 source) Noninfective gastroenteritis and colitis, unspecified; Translations: [Noninfective gastroenteritis and colitis, unspecified] Onset: 01-07-2024 Episodic Other acquired deformities (1 source) Scoliosis, unspecified; Translations: [SCOLIOSIS UNSPECIFIED] Onset: 08-29-2019 Chronic Other lower respiratory disease (4 sources) Cough; Translations: [COUGH] Onset: 08-27-2019 Episodic Other screening for suspected conditions (not mental disorders or infectious disease) (1 source) Encounter for screening for malignant neoplasm of colon; Translations: [Encounter for screening for malignant neoplasm of colon] Onset: 01-07-2024 Episodic Other upper respiratory infections (1 source) Chronic sinusitis, unspecified; Translations: [CHRONIC SINUSITIS UNSPECIFIED] Onset: 08-29-2019 Chronic Screening and history of mental health and substance abuse codes (1 source) Personal history of nicotine dependence; Translations: [PERSONAL HISTORY OF NICOTINE DEPEND] Onset: 08-29-2019 Episodic Results Test Name Value Interpretation Reference Range Facil ity BASIC METABOLIC PANLon 01-06 Anion gap [Moles/Vol] 8 mmol/L Normal 5-15 [facility] Comment on above: Performed By: #### B MP #### [facility] ([id number]) [address] [place] [address] Calcium [Mass/Vol] 8.6 mg/dL Normal 8.5-10.5 [facility] Comment on above: Performed By: #### B MP #### [facility] ([id number]) [address] [address] Chloride [Moles/Vol] 105 mmol/L Normal 98-109 [facility] Comment on above: Performed By: #### B MP #### [facility] ([id number]) [address] [address] CO2 [Moles/Vol] 25 mmol/L Normal 22-32 [facility] Comment on above: Performed By: #### B MP #### [facility] ([id number]) [address] [address] Creatinine [Mass/Vol] 0.74 mg/dL Normal 0.40-1.00 [facility] Comment on above: Result Comment: METH OD TRACEABLE TO IDMS STANDARD Performed By: #### B MP #### [facility] ([id number]) [address] [address] eGFR (CKD-EPI) NON-RACE DEPENDENT >90 Normal >59 [facility] Comment on above: Result Comment: Reported eGFR is based on the CKD-EPI 2020 equation that does not use a race coefficient. Performed By: #### B MP #### [facility] ([id number]) [address] [place] [address] Glucose [Mass/Vol] 87 mg/dL Normal 65-99 [facility] Comment on above: Performed By: #### B MP #### [facility] ([id number]) [address] [place] [address] Potassium [Moles/Vol] 3.9 mmol/L Normal 3.5-5.0 [facility] Comment on above: Performed By: #### B MP #### [facility] ([id number]) [address] [place] [address] Sodium [Moles/Vol] 138 mmol/L Normal 134-146 [facility] Comment on above: Performed By: #### B MP #### [facility] ([id number]) [address] [place] [address] Urea nitrogen [Mass/Vol] 5 mg/dL Normal 5-23 [facility] Comment on above: Performed By: #### B MP #### [facility] ([id number]) [address] [place] [address] INFLUENZA A AND B AGon 08-27 [facility] SEE BELOW Normal [facility] Comment on above: Result Comment: Nega tive for Flu A protein angiten. Infection due to Flu A cannot be ruled out. Flu A angiten in the sample may be below the detection limit of the test. Performed By: #### I NFLUAB #### [facility] [address] [place] [address] [facility] Normal [facility] Comment on above: Result Comment: Nega tive for Flu B protein antigen. Infection due to Flu B cannot be ruled out. Flu B antigen in the sample may be below the detection limit of the test. Performed By: #### I NFLUAB #### [facility] [address], [place] [address] Jessie Gandhi INFLUENZA A AG Negative Normal NEGATIVE SEE COMMENT [facility] Comment on above: Performed By: #### I NFLUAB #### [facility] [address], [place] [address] Jessie Gandhi INFLUENZA B AG Negative Normal NEGATIVE SEE COMMENT [facility] Comment on above: Performed By: #### I NFLUAB #### [facility] [address], [place] [address] Jessie Gandhi INTERNAL CONTROLS Within Normal Limits Normal Within Normal Limits [facility] Comment on above: Performed By: #### I NFLUAB #### [facility] [address], [place] [address] Jessie Gandhi Encounters Encounter Date Encounter Type Care Provider Facility Start: 01-07-2024 End: 01-08-2024 ambulatory [facility] Start: 01-07-2024 End: 01-07-2024 ambulatory [facility] Start: 08-27-2019 End: 08-27-2019 Patient encounter procedure PANCHITO JUAREZ Facility: Procedures Date Procedure Procedure Detail Performing Clinician Start: 01-07-2024 Follow-up visit Follow-up ANDREW JUAREZ Payers Date Payer Category Payer Medicaid [id number] 1975 Unknown [id number] 1975 Unknown [id number] 1975 Unknown [id number] 1957 Unknown [id number] Summary Purpose Family History No Family History Records FoundNo Family History Records FoundNo Family History Records Found Advance Directives No Advanced Directives Records FoundNo Advanced Directives Records FoundNo Advanced Directives Records Found Additional Source Comments INFORMATION SOURCE (unrecogn ized section and content) DATE CREATED AUTHOR 08/29/2019 [facility] DATE CREATED AUTHOR AUTHOR'S ORGANIZ ATION 01/09/2024 [facility] DATE CREATED AUTHOR AUTHOR'S PAMELA REGALADO 01/10/2024 [facility] FOR RECORDS PERTAINING TO PATIENTS WHO ARE OR HAVE BEEN ENROLLED IN A CHEMICAL DEPENDENCY/SUBSTANCEABUSE PROGRAM, SOME INFORMATION MAY BE OMITTED. This clinical summary was aggregated from multiple sources. Caution should be exercised in using it in the provision of clinical care. This summary normalizes information from multiple sources, and as a consequence, information in this document may materially change the coding, format and clinical context of patient data. In addition, data may be omitted in some cases. CLINICAL DECISIONS SHOULD BE BASED ON THE PRIMARY CLINICAL RECORDS. [facility] [employer] [facility] provides no warranty or guarantee of the accuracy or completeness of information in this document.
[2024-01-10] MEDS: LACTATED RINGER'S SOLUTION 1,000 ML 100 ML IV (17:45)
[2024-01-10] MEDS: PANTOPRAZOLE SODIUM 40 MG VIAL IV (17:45)
[2024-01-10 19:26] VITALS: BP 112/70; PULSE 70; TEMP 36.8; O2SAT 98
--- NOTE | 2024-01-10 20:12 | P.HP_ITS ---
HPI H&P: HPI History of Present Illness Chief complaint: VOMITING, INTRACTABLE ABDOMINAL PAIN, NAUSEA Narrative: Patient presented to the emergency room with abdominal pain, nausea, vomiting. Medications at home were ineffective. In ER found to have significant leukocytosis, anemia, hypokalemia, significantly elevated CRP. Lipase and lactate were normal. Patient mated for dehydration. When I saw patient up on the medical surgical floor, she was resting comfortably. States her nausea is improved but still persisting. Opioid HPI Opioid Management Most Recent Opioid Data: Last Pain Scale 3 01/10/24 19:00 Last Pain Assessment 01/10/24 19:00 Last ORT Total Score 2 01/10/24 16:35 Last ORT Risk Category Low Risk 01/10/24 16:35 Review of Systems ROS Status of ROS 10 or more systems reviewed and unremark able except as noted in history and below PFSH PFS Medical History (Updated 01/10/24 @ 15:43 by DANNY Moore) Colitis ?K52.9 - Noninfective gastroenteritis and colitis, unspecified (ICD-10) Acute proctitis ?K62.89 - Other specified diseases of anus and rectum (ICD-10) 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 of left artificial elbow joint (ICD-10) Scoliosis ?M41.9 - Scoliosis, unspecified (ICD-10) Surgical History (Updated 01/10/24 @ 16:29 by Jossie Proctor) Previous back surgery ?Z98.890 - Other specified postprocedural states (ICD-10) Family History (Updated 12/24/23 @ 23:13 by Emelina Espinoza) Mother Family history of CHF (congestive heart failure) Family history of cancer Family history of hypertension Family history of myocardial infarction Family history of stroke Father Family history of cancer Social History Within the past year, how often did you have a drink containing alcohol: monthly or less Within the past year, how often did you have six or more drinks on one occasion: less than monthly Smoking status: Former smoker Non-prescribed substance use: cannabis (any form) Previous occupational history: Does not Work Known occupational exposures/hazards: No Highest level of school completed/degree received: some college, no degree Do you want help with school or training: No Are you now , , , , never or living with a partner: never In a typical week, how many times do you talk on the telephone with family, friends, or neighbors: 3 or more times per week How often do you get together with friends or relatives: 3 or more times per week How often do you attend nondenominational or sikh services: never Do you belong to any clubs or organizations such as nondenominational groups unions, [employer] or athletic groups, or school groups: no Total score: 1 Score interpretation: A score of less than or equal to 1 indicates the most socially isolated. Little interest or pleasure in doing things: not at all Feeling down, depressed, or hopeless: not at all Feel stressed/tense/nervous/anxious/difficulty sleeping: not at all Due to disability, difficulty making decisions: No Do you think of yourself as: straight/heterosexual Gender Identity: female Meds Home Medications and Allergies Home Medications ?Medication ?Instructions ?Recorded ?Confirmed ?Type escitalopram oxalate 5 mg tablet 5 mg PO DAILY 12/24/23 01/10/24 History hyoscyamine sulfate 0.125 mg 0.125 mg PO Q8H PRN dyspepsia #30 12/25/23 01/10/24 Rx sublingual tablet (Levsin/SL) tabs ondansetron HCl 4 mg tablet 4 mg PO Q8H PRN nausea and 12/25/23 01/10/24 Rx vomiting 4 days #10 tabs hydrocodone 5 mg-acetaminophen 325 1 tab PO Q6H PRN pain 5 days #20 12/27/23 01/10/24 Rx mg tablet tabs ondansetron 4 mg disintegrating 4 mg PO Q6H PRN nausea and 12/27/23 01/10/24 Rx tablet vomiting #20 tabs Allergies Allergy/AdvReac Type Severity Reaction Status Date / Time No Known Drug Allergies Allergy Verified 12/27/23 07:54 Exam Constitutional Vital Signs, click to edit/add: Last Vital Signs Temp 98.2 F 01/10/24 19:26 Pulse 70 01/10/24 19:26 Resp 18 01/10/24 19:26 BP 112/70 01/10/24 19:26 Pulse Ox 98 01/10/24 19:26 O2 Del Method Room Air 01/10/24 19:26 Documenting provider has reviewed patient's vital signs: yes Common normals: no apparent distress Chest Common normals: inspection of chest normal Respiratory Common normals: normal respiratory effort and no retractions Cardio Common normals: regular rate and regular rhythm GI Common normals: Normal to inspection, nondistended, normoactive bowel sounds present and soft to palpation; tender Palpation: tender (Mild diffuse tenderness, no rebound tenderness) Neuro Common normals: oriented x3 and CN's II-XII intact bilaterally Results Labs Labs: Short CBC 01/10/24 Range/Units 13:22 WBC 12.5 H (4.0-11.0) 10^3/uL Hgb 10.5 L (12.0-16.0) g/dL Hct 33.7 L (36.0-48.0) % Plt Count 286 (150-450) 10^3/uL BMP 01/10/24 13:22 Sodium 138 Potassium 3.4 L Chloride 100 Carbon Dioxide 25.3 BUN 4.0 L Creatinine 0.89 Glucose 111 H Calcium 9.2 Liver Function 01/10/24 Range/Units 13:22 Total Bilirubin 0.5 (0.2-1.0) mg/dL AST 17 (15-37) U/L ALT 12 L (14-59) U/L Alkaline Phosphatase 61 (46-116) U/L Albumin 3.5 (3.4-5.0) g/dL Assessment and Plan Assessment and Plan (1) Intractable nausea and vomiting: (2) Intractable abdominal pain: Plan Leukocytosis, hypokalemia, elevated CRP-CT scan suggesting colitis but is actually improved from previous CT scan. Likely secondary to dehydration with some demargination for the elevated white blood cell count. Will give fluids overnight. Zofran for nausea. Overall treatment plan is improving her nausea. Elevated CRP likely related to the resolving colitis. Check urinalysis for possible other etiology for the leukocytosis. Admission status: Patient with significant dehydration, vital signs are stable however still give fluids overnight. Medically necessary treatment would likely span just [address] patient in observation status
[2024-01-10 20:21] VITALS: O2SAT 93
[2024-01-10 23:39] VITALS: BP 126/74; PULSE 66; TEMP 37.1; O2SAT 93
[2024-01-11] VITALS (13 sets, daily range): BP systolic 94–123; BP diastolic 55–74; PULSE 58–67; TEMP 36.4–37.1; O2SAT 92–98
--- NOTE | 2024-01-11 00:49 | PC.NURSE ---
patient had 100 ml emesis. She said she tried drinking a few sips of water
[2024-01-11 01:04] LABS: Bilirubin Urine NEGATIVE (NEGATIVE); Blood Urine NEGATIVE (NEGATIVE); Clarity Urine CLEAR (CLEAR); Color Urine YELLOW (YELLOW); Glucose Urine UA NEGATIVE (NEGATIVE); Ketones Urine 40 mg/dL (NEGATIVE); Leukocyte Esterase Urine NEGATIVE (NEGATIVE); Nitrite Urine NEGATIVE (NEGATIVE); Protein Urine TRACE mg/dL (NEG/TRACE); Urobilinogen Urine 0.2 EU/dL (0.2-1.0); pH Urine 6.5 (5.0-9.0)
[2024-01-11 01:07] LABS: Urine Microscopic Indicated NO
[2024-01-11] MEDS: LACTATED RINGER'S SOLUTION 1,000 ML 100 ML IV ×2 (03:20→16:21)
[2024-01-11] MEDS: HYDROCODONE/ACET 5-325 MG TABLET 1 TAB PO (03:24)
--- NOTE | 2024-01-11 03:29 | PC.NURSE ---
Patient c/o 03/01 pain. Gave oral pain meds which patient took with small sips of water. Immediately patient vomited 75 ml
[2024-01-11] MEDS: MORPHINE SULFATE 2 MG/ML SYRINGE IV (04:24)
[2024-01-11 04:55] LABS: Basophils Percent Auto 0.1 % (0.2-2.0); Hematocrit 30.6 % (36.0-48.0); Hemoglobin 9.4 g/dL (12.0-16.0); Immature Granulocytes Abs Auto 0.04 10^3/uL (0.00-0.03); Immature Granulocytes Pct Auto 0.4 % (0.0-0.5); Lymphocytes Absolute Auto 0.6 10^3/uL (1.2-3.8); Lymphocytes Percent Auto 5.9 % (20.5-60.0); Mean Corpuscular HGB Conc 30.7 g/dL (29.9-35.2); Mean Corpuscular Hemoglobin 24.4 pg (26.7-34.0); Mean Corpuscular Volume 79.5 fL (81.0-99.0); Mean Platelet Volume 10.9 fL (9.5-13.5); Monocytes Absolute Auto 0.4 10^3/uL (0.3-0.8); Monocytes Percent Auto 4.1 % (1.7-12.0); Neutrophils Percent Auto 89.5 % (43.0-75.0); Platelet Count 273 10^3/uL (150-450); Red Blood Count 3.85 10^6/uL (4.20-5.40); Red Cell Distribution Width 18.9 % (11.0-15.0); White Blood Count 10.1 10^3/uL (4.0-11.0)
[2024-01-11 05:18] LABS: Alanine Aminotransferase 10 U/L (14-59); Albumin Globulin Ratio 0.8; Alkaline Phosphatase 53 U/L (46-116); Anion Gap 10.8; Aspartate Amino Transferase 8 U/L (15-37); Bilirubin Total 0.4 mg/dL (0.2-1.0); C Reactive Protein 2.63 mg/dL (<=0.50); Calcium 8.7 mg/dL (8.5-10.1); Carbon Dioxide 26.7 mmol/L (21.0-32.0); Chloride 103 mmol/L (98-107); Estimated GFR (African America >60 (>=60); Estimated GFR (Non-African Ame >60 (>=60); Globulin 3.9 g/dL; Glucose 112 mg/dL (74-106); Potassium 3.5 mmol/L (3.5-5.1); Sodium 137 mmol/L (136-145); Total Protein 6.9 g/dL (6.4-8.2)
--- NOTE | 2024-01-11 08:47 | XR_ITS ---
The [address] [address] Patient Name: KELLI LAKE MRN: [id number] date: 1975 Sex: F Assigned Patient Location: [place] Current Patient Location: [place] Accession/Order Number: [id number] Exam Date: 01/11/2024 09:52 Report Date: 01/11/2024 10:50 At the request of: YAJAIRA FARMER Procedure: XR acute abdomen series EXAMINATION: XR acute abdomen series HISTORY: abd pain - ileus? Unable to keep food and liquids down COMPARISON: CT abdomen pelvis 01/10/2024 FINDINGS: LUNGS: No infiltrate, pneumothorax, or pleural effusion. MEDIASTINUM: No abnormal widening. BOWEL GAS PATTERN: Non-obstructed. No abnormal dilation or suspicious fluid levels. FREE AIR: None. CALCIFICATIONS: None significant. BONES: Marked scoliosis and prior placement of [place] rods OTHER: Bladder filled with radiopaque contrast from prior CT study. XR/XR acute abdomen series IMPRESSION: 1. Marked scoliosis. 2. No appreciable acute cardiopulmonary process. 3. No bowel obstruction or appreciable acute abdominal findings. Electronically authenticated by: JACQUES JADE Date: 01/11/2024 10:50
--- NOTE | 2024-01-11 08:52 | P.PN_ITS ---
Progress Note: Subjective Subjective Interval history: Nausea may be somewhat better today. Pain persisting. Still having frequent emesis Exam Constitutional Vital Signs, click to edit/add: Last Vital Signs Temp 98.7 F 01/11/24 03:58 Pulse 67 01/11/24 03:58 Resp 18 01/11/24 03:58 BP 121/69 01/11/24 03:58 Pulse Ox 95 01/11/24 08:10 O2 Del Method Room Air 01/11/24 03:58 Documenting provider has reviewed patient's vital signs: yes Common normals: no apparent distress Chest Common normals: inspection of chest normal Respiratory Common normals: normal respiratory effort and no retractions Cardio Common normals: regular rate and regular rhythm GI Common normals: Normal to inspection, nondistended, normoactive bowel sounds present and soft to palpation; tender Palpation: tender (Mild diffuse tenderness, no rebound tenderness) Neuro Common normals: oriented x3 and CN's II-XII intact bilaterally Progress Note: Objective Labs Labs: Short CBC 01/10/24 01/11/24 Range/Units 13:22 04:12 WBC 12.5 H 10.1 (4.0-11.0) 10^3/uL Hgb 10.5 L 9.4 L (12.0-16.0) g/dL Hct 33.7 L 30.6 L (36.0-48.0) % Plt Count 286 273 (150-450) 10^3/uL BMP 01/10/24 01/11/24 13:22 04:12 Sodium 138 137 Potassium 3.4 L 3.5 Chloride 100 103 Carbon Dioxide 25.3 26.7 BUN 4.0 L 6.0 L Creatinine 0.89 0.67 Glucose 111 H 112 H Calcium 9.2 8.7 Liver Function 01/10/24 01/11/24 Range/Units 13:22 04:12 Total Bilirubin 0.5 0.4 (0.2-1.0) mg/dL AST 17 8 L (15-37) U/L ALT 12 L 10 L (14-59) U/L Alkaline Phosphatase 61 53 (46-116) U/L Albumin 3.5 3.0 L (3.4-5.0) g/dL Urine 01/11/24 Range/Units 00:45 Urine Color Yellow (YELLOW) Urine Clarity Clear (CLEAR) Urine pH 6.5 (5.0-9.0) Ur Specific [place] 1.010 (1.005-1.025) Urine Protein Trace (NEG/TRACE) mg/dL Urine Glucose (UA) Negative (NEGATIVE) mg/dL Progress Note: A&P Assessment and Plan (1) Intractable nausea and vomiting: (2) Intractable abdominal pain: Plan Leukocytosis, hypokalemia, elevated CRP-CT scan suggesting colitis but is actually improved from previous CT scan. Treated for the dehydration yesterday. This did not improve her symptoms. Will repeat acute abdominal series, reinstitute treatment for colitis with Cipro, Flagyl, 1 dose of Decadron. Check on acute abdominal series later this morning. Leukocytosis is improved today. Try Reglan for nausea Iron deficiency anemia-Down somewhat today. Continue to monitor Elevated CRP likely related to the resolving colitis. Unchanged from previous day Check urinalysis for possible other etiology for the leukocytosis.-Normal Moderate protein, nutrition-will do diet supplement once can tolerate orals Hypokalemia-supplemented and improved Admission status: Treated for dehydration overnight with observation status, patient is not significantly improved. Dehydration appears to be improved but still with recurrent emesis. Medically necessary treatment will span 2 midnights. Change patient to inpatient status ?
--- NOTE | 2024-01-11 10:00 | CM.NOTE ---
Rounds made with Dr. Isaac, pt continues with nausea and unable to even hold down water. Will continue IV fluids and change nausea medications.
[2024-01-11] MEDS: CIPROFLOXACIN IN 5 % DEXTROSE 400 MG/200 ML PIGGYBACK 200 MG IV ×2 (10:07→21:19)
[2024-01-11] MEDS: DEXAMETHASONE SOD PHOS 10 MG/ML VIAL IV (10:07)
[2024-01-11] MEDS: HYOSCYAMINE SULFATE 0.125 MG TAB.SUBL SL ×3 (12:02→21:19)
[2024-01-11] MEDS: METRONIDAZOLE/SODIUM CHLORIDE 500 MG/100 ML PREMIX 100 MG IV ×3 (12:02→22:30)
[2024-01-11] MEDS: METOCLOPRAMIDE HCL 10 MG/2 ML VIAL IVP ×2 (12:02→17:49)
[2024-01-11] MEDS: PANTOPRAZOLE SODIUM 40 MG VIAL IV (16:20)
[2024-01-11] MEDS: L. ACIDOPHILUS/L.BULGARICUS 1 PACKET GRAN.PACK PO ×2 (16:21→21:19)
[2024-01-11] MEDS: POTASSIUM CHLORIDE 10 MEQ ER TABLET PO (21:19)
[2024-01-12] VITALS (8 sets, daily range): BP systolic 100–144; BP diastolic 65–86; PULSE 56–65; TEMP 36.1–37.3; O2SAT 94–100
[2024-01-12] MEDS: METOCLOPRAMIDE HCL 10 MG/2 ML VIAL IVP ×5 (00:58→23:11)
[2024-01-12] MEDS: LACTATED RINGER'S SOLUTION 1,000 ML 100 ML IV ×3 (02:37→21:12)
[2024-01-12] MEDS: METRONIDAZOLE/SODIUM CHLORIDE 500 MG/100 ML PREMIX 100 MG IV ×4 (05:13→23:11)
[2024-01-12] MEDS: HYOSCYAMINE SULFATE 0.125 MG TAB.SUBL SL ×4 (05:13→21:04)
[2024-01-12 05:25] LABS: Basophils Percent Auto 0.1 % (0.2-2.0); Eosinophils Percent Auto 0.1 % (0.9-7.0); Hemoglobin 8.5 g/dL (12.0-16.0); Immature Granulocytes Abs Auto 0.05 10^3/uL (0.00-0.03); Immature Granulocytes Pct Auto 0.4 % (0.0-0.5); Lymphocytes Absolute Auto 1.5 10^3/uL (1.2-3.8); Lymphocytes Percent Auto 10.9 % (20.5-60.0); Mean Corpuscular HGB Conc 30.4 g/dL (29.9-35.2); Mean Corpuscular Hemoglobin 24.6 pg (26.7-34.0); Mean Corpuscular Volume 81.2 fL (81.0-99.0); Monocytes Absolute Auto 0.9 10^3/uL (0.3-0.8); Monocytes Percent Auto 6.2 % (1.7-12.0); Neutrophils Absolute Auto 11.5 10^3/uL (1.4-6.5); Neutrophils Percent Auto 82.3 % (43.0-75.0); Platelet Count 249 10^3/uL (150-450); Red Blood Count 3.45 10^6/uL (4.20-5.40); Red Cell Distribution Width 19.3 % (11.0-15.0)
[2024-01-12 05:53] LABS: Alanine Aminotransferase 9 U/L (14-59); Albumin Globulin Ratio 0.8; Albumin Level 2.6 g/dL (3.4-5.0); Alkaline Phosphatase 43 U/L (46-116); Aspartate Amino Transferase 9 U/L (15-37); BUN Creatinine Ratio 12.5; Bilirubin Total 0.3 mg/dL (0.2-1.0); C Reactive Protein 1.29 mg/dL (<=0.50); Calcium 8.5 mg/dL (8.5-10.1); Carbon Dioxide 24.5 mmol/L (21.0-32.0); Chloride 103 mmol/L (98-107); Estimated GFR (African America >60 (>=60); Estimated GFR (Non-African Ame >60 (>=60); Globulin 3.4 g/dL; Glucose 88 mg/dL (74-106); Potassium 3.5 mmol/L (3.5-5.1); Sodium 136 mmol/L (136-145)
[2024-01-12 08:47] LABS: Adenovirus F 40/41 NOT DETECTED (NOT DETECTE); Astrovirus NOT DETECTED (NOT DETECTE); Campylobacter NOT DETECTED (NOT DETECTE); Cryptosporidium NOT DETECTED (NOT DETECTE); Cyclospora cayetanensis NOT DETECTED (NOT DETECTE); Entamoeba histolytica NOT DETECTED (NOT DETECTE); Enteroaggregative E.coli NOT DETECTED (NOT DETECTE); Enteropathogenic E.coli NOT DETECTED (NOT DETECTE); Enterotoxigenic E. coli NOT DETECTED (NOT DETECTE); Giardia lamblia NOT DETECTED (NOT DETECTE); Norovirus GI/GII NOT DETECTED (NOT DETECTE); Plesiomonas shigelloides NOT DETECTED (NOT DETECTE); Rotavirus A NOT DETECTED (NOT DETECTE); Salmonella NOT DETECTED (NOT DETECTE); Sapovirus NOT DETECTED (NOT DETECTE); Shiga-like toxin-producing E.C NOT DETECTED (NOT DETECTE); Shigella/Enteroinvasive E.coli NOT DETECTED (NOT DETECTE); Vibrio NOT DETECTED (NOT DETECTE); Vibrio cholerae NOT DETECTED (NOT DETECTE); Yersinia enterocolitica NOT DETECTED (NOT DETECTE)
--- NOTE | 2024-01-12 09:12 | P.DS_ITS ---
DS: Providers Provider Date of admission: 01/11/24 08:47 Primary care physician: ANDREW JUAREZ Consults: 01/10/24 Consult to Dietitian Routine Reason for consultation: weight loss Has provider been notified: Yes 01/10/24 16:37 Consult to Pharmacy Routine Consulting Provider: Reason for consultation: Please [place] me when Med Rec is Updated Has provider been notified: No DS: Diagnosis Discharge Diagnosis (1) Intractable nausea and vomiting: (2) Intractable abdominal pain: Plan Leukocytosis, hypokalemia, elevated CRP-CT scan suggesting colitis but is actually improved from previous CT scan. Treated for the dehydration yesterday. This did not improve her symptoms. Will repeat acute abdominal series, reinstitute treatment for colitis with Cipro, Flagyl, 1 dose of Decadron. Check on acute abdominal series later this morning. Leukocytosis is improved today. Try Reglan for nausea Iron deficiency anemia-Down somewhat today. Continue to monitor Elevated CRP likely related to the resolving colitis. Unchanged from previous day Check urinalysis for possible other etiology for the leukocytosis.-Normal Moderate protein, nutrition-will do diet supplement once can tolerate orals Hypokalemia-supplemented and improved Admission status: Treated for dehydration overnight with observation status, patient is not significantly improved. Dehydration appears to be improved but still with recurrent emesis. Medically necessary treatment will span 2 midnights. Change patient to inpatient status ? ? DS: Summary Time Spent with Patient Time attestation: Total time spent providing and/or coordinating discharge services: Exam Constitutional Vital Signs, click to edit/add: Last Vital Signs Temp 97.9 F 01/12/24 07:51 Pulse 59 L 01/12/24 07:51 Resp 16 01/12/24 07:51 BP 100/65 01/12/24 07:51 Pulse Ox 94 L 01/12/24 07:51 O2 Del Method Room Air 01/12/24 03:50 DS: Data Data Completed and Pending Labs on day of discharge: Labs from last 24 hours 01/12/24 04:38 WBC 14.0 H RBC 3.45 L Hgb 8.5 L Hct 28.0 L MCV 81.2 MCH 24.6 L MCHC 30.4 RDW 19.3 H Plt Count 249 MPV 11.0 Neut % (Auto) 82.3 H Lymph % (Auto) 10.9 L [place] % (Auto) 6.2 Eos % (Auto) 0.1 L Baso % (Auto) 0.1 L Neut # (Auto) 11.5 H Lymph # (Auto) 1.5 [place] # (Auto) 0.9 H Eos # (Auto) 0.0 Baso # (Auto) 0.0 Abs Immat Gran (auto) 0.05 H Imm/Tot Granulo (auto) 0.4 Sodium 136 Potassium 3.5 Chloride 103 Carbon Dioxide 24.5 Anion Gap 12.0 BUN 8.0 Creatinine 0.64 Est GFR ( Amer) >60 Est GFR (Non-Af Amer) >60 BUN/Creatinine Ratio 12.5 Glucose 88 Calcium 8.5 Total Bilirubin 0.3 AST 9 L ALT 9 L Alkaline Phosphatase 43 L C-Reactive Protein 1.29 H Total Protein 6.0 L Albumin 2.6 L Globulin 3.4 Albumin/Globulin Ratio 0.8 Discharge Plan Discharge Disposition: Home, Self-Care Discharge Medications: New ciprofloxacin HCl [Cipro] 500 mg tablet 500 mg PO Q12H Qty: 30 0RF metronidazole 500 mg tablet 500 mg PO Q8H Qty: 45 0RF prednisone 10 mg tablet 40 mg PO DAILY Qty: 32 0RF Rx Instructions: 4/day for 3 days, 3/day for 3 days, 2/day for 3 days, 1/day for 3 days, 1/2 /day for 4 days Continued escitalopram oxalate 5 mg tablet 5 mg PO DAILY ondansetron HCl 4 mg tablet 4 mg PO Q8H PRN (Reason: nausea and vomiting) 4 Days Qty: 10 0RF hyoscyamine sulfate [Levsin/SL] 0.125 mg tablet, sublingual 0.125 mg PO Q8H PRN (Reason: dyspepsia) Qty: 30 0RF hydrocodone-acetaminophen 5-325 mg tablet 1 tab PO Q6H PRN (Reason: pain) 5 Days Qty: 20 0RF ondansetron 4 mg tablet,disintegrating 4 mg PO Q6H PRN (Reason: nausea and vomiting) Qty: 20 0RF Print Language: Mauritian Forms: Portal Instructions
[2024-01-12] MEDS: HYDROCODONE/ACET 5-325 MG TABLET 1 TAB PO ×2 (09:30→16:53)
[2024-01-12] MEDS: ONDANSETRON PF 4 MG/2 ML VIAL IV (09:31)
--- NOTE | 2024-01-12 09:36 | CM.NOTE ---
Rounds made with Dr. Isaac. Dr. Isaac reviews labs and plan for discharge today. Follow up with PCP in one week.
[2024-01-12] MEDS: MORPHINE SULFATE 2 MG/ML SYRINGE IV ×2 (10:31→13:29)
[2024-01-12] MEDS: ESCITALOPRAM 10 MG TABLET 5 MG PO (10:40)
[2024-01-12] MEDS: POTASSIUM CHLORIDE 10 MEQ ER TABLET PO ×2 (10:40→21:04)
[2024-01-12] MEDS: L. ACIDOPHILUS/L.BULGARICUS 1 PACKET GRAN.PACK PO ×2 (10:40→21:04)
--- NOTE | 2024-01-12 10:44 | P.PN_ITS ---
Progress Note: Subjective Subjective Interval history: Overall this morning she felt better. Pain was improved from the previous day. After doing secondary rounds, patient had significant increase in her pain with eating. Also her C. difficile test came back positive this morning. Exam Constitutional Vital Signs, click to edit/add: Last Vital Signs Temp 97.9 F 01/12/24 07:51 Pulse 59 L 01/12/24 07:51 Resp 18 01/12/24 08:00 BP 100/65 01/12/24 07:51 Pulse Ox 94 L 01/12/24 07:51 O2 Del Method Room Air 01/12/24 03:50 Documenting provider has reviewed patient's vital signs: yes Common normals: no apparent distress Chest Common normals: inspection of chest normal Respiratory Common normals: normal respiratory effort and no retractions Cardio Common normals: regular rate and regular rhythm GI Common normals: Normal to inspection, nondistended, normoactive bowel sounds present and soft to palpation; tender Palpation: tender (Mild diffuse tenderness persisting) Neuro Common normals: oriented x3 and CN's II-XII intact bilaterally Progress Note: Objective Labs Labs: Short CBC 01/12/24 Range/Units 04:38 WBC 14.0 H (4.0-11.0) 10^3/uL Hgb 8.5 L (12.0-16.0) g/dL Hct 28.0 L (36.0-48.0) % Plt Count 249 (150-450) 10^3/uL BMP 01/12/24 04:38 Sodium 136 Potassium 3.5 Chloride 103 Carbon Dioxide 24.5 BUN 8.0 Creatinine 0.64 Glucose 88 Calcium 8.5 Liver Function 01/12/24 Range/Units 04:38 Total Bilirubin 0.3 (0.2-1.0) mg/dL AST 9 L (15-37) U/L ALT 9 L (14-59) U/L Alkaline Phosphatase 43 L (46-116) U/L Albumin 2.6 L (3.4-5.0) g/dL Progress Note: A&P Assessment and Plan (1) Intractable nausea and vomiting: (2) Intractable abdominal pain: Plan Leukocytosis, hypokalemia, elevated CRP-CT scan suggesting colitis but is actually improved from previous CT scan. Dehydration likely resolved, pain with eating, C. difficile test also came back positive today, white blood cell count is elevated also. Has been on Flagyl, will add vancomycin and discontinue the ciprofloxacin. Maintain inpatient status at least 1 more day. Iron deficiency anemia-Down somewhat today. Continue to monitor-check on stool sample Elevated CRP likely related to the resolving colitis. Improved today. Check urinalysis for possible other etiology for the leukocytosis.-Normal Moderate protein, nutrition-will do diet supplement once can tolerate orals Hypokalemia-supplemented and improved Admission status: Treated for dehydration overnight with observation status, patient is not significantly improved. Dehydration appears to be improved but still with recurrent emesis. Medically necessary treatment will span 2 midnights. Continue to status, progression of white blood cell count now positive C. difficile. Likely needs a least 1 more day of hospitalization ?
[2024-01-12] MEDS: VANCOMYCIN HCL 7,500 MG/150 ML BOTTLE 125 MG PO ×3 (11:21→21:05)
[2024-01-12] MEDS: LACTULOSE 10 GM/15 ML UD CUP 30 GM PO (12:05)
[2024-01-12] MEDS: PANTOPRAZOLE SODIUM 40 MG VIAL IV (18:34)
[2024-01-13 04:00] VITALS: BP 104/64; PULSE 58; TEMP 36.4; O2SAT 98
[2024-01-13 04:43] VITALS: O2SAT 98
[2024-01-13 05:19] LABS: Basophils Percent Auto 0.4 % (0.2-2.0); Eosinophils Absolute Auto 0.1 10^3/uL (0.0-0.7); Hematocrit 28.8 % (36.0-48.0); Hemoglobin 8.7 g/dL (12.0-16.0); Immature Granulocytes Abs Auto 0.02 10^3/uL (0.00-0.03); Immature Granulocytes Pct Auto 0.3 % (0.0-0.5); Lymphocytes Absolute Auto 2.1 10^3/uL (1.2-3.8); Lymphocytes Percent Auto 28.4 % (20.5-60.0); Mean Corpuscular HGB Conc 30.2 g/dL (29.9-35.2); Mean Corpuscular Hemoglobin 24.3 pg (26.7-34.0); Mean Corpuscular Volume 80.4 fL (81.0-99.0); Mean Platelet Volume 10.1 fL (9.5-13.5); Monocytes Absolute Auto 0.6 10^3/uL (0.3-0.8); Monocytes Percent Auto 7.9 % (1.7-12.0); Neutrophils Absolute Auto 4.5 10^3/uL (1.4-6.5); Platelet Count 242 10^3/uL (150-450); Red Blood Count 3.58 10^6/uL (4.20-5.40); White Blood Count 7.2 10^3/uL (4.0-11.0)
[2024-01-13] MEDS: VANCOMYCIN HCL 7,500 MG/150 ML BOTTLE 125 MG PO (05:29)
[2024-01-13] MEDS: METOCLOPRAMIDE HCL 10 MG/2 ML VIAL IVP (05:30)
[2024-01-13] MEDS: HYOSCYAMINE SULFATE 0.125 MG TAB.SUBL SL (05:30)
[2024-01-13] MEDS: METRONIDAZOLE/SODIUM CHLORIDE 500 MG/100 ML PREMIX 100 MG IV (05:30)
[2024-01-13 05:39] LABS: Alanine Aminotransferase 8 U/L (14-59); Albumin Globulin Ratio 0.8; Albumin Level 2.5 g/dL (3.4-5.0); Alkaline Phosphatase 42 U/L (46-116); Anion Gap 10.2; Aspartate Amino Transferase 14 U/L (15-37); BUN Creatinine Ratio 6.3; Bilirubin Total 0.3 mg/dL (0.2-1.0); C Reactive Protein 1.09 mg/dL (<=0.50); Carbon Dioxide 26.5 mmol/L (21.0-32.0); Chloride 101 mmol/L (98-107); Estimated GFR (African America >60 (>=60); Estimated GFR (Non-African Ame >60 (>=60); Globulin 3.2 g/dL; Glucose 85 mg/dL (74-106); Potassium 3.7 mmol/L (3.5-5.1); Sodium 134 mmol/L (136-145); Total Protein 5.7 g/dL (6.4-8.2)
[2024-01-13] MEDS: LACTATED RINGER'S SOLUTION 1,000 ML 100 ML IV (07:53)
[2024-01-13 08:00] VITALS: BP 127/79; PULSE 56; TEMP 36.3; O2SAT 100
[2024-01-13] MEDS: L. ACIDOPHILUS/L.BULGARICUS 1 PACKET GRAN.PACK PO (08:48)
[2024-01-13] MEDS: POTASSIUM CHLORIDE 10 MEQ ER TABLET PO (08:48)
[2024-01-13] MEDS: ESCITALOPRAM 10 MG TABLET 5 MG PO (08:48)
--- NOTE | 2024-01-13 08:59 | P.DS_ITS ---
DS: Providers Provider Date of admission: 01/11/24 08:47 Primary care physician: ANDREW RAND Consults: 01/10/24 Consult to Dietitian Routine Reason for consultation: weight loss Has provider been notified: Yes 01/10/24 16:37 Consult to Pharmacy Routine Consulting Provider: Reason for consultation: Please [place] me when Med Rec is Updated Has provider been notified: No DS: Diagnosis Discharge Diagnosis (1) Intractable nausea and vomiting: (2) Intractable abdominal pain: Plan Leukocytosis, hypokalemia, elevated CRP-CT scan suggesting colitis but is actually improved from previous CT scan. Dehydration likely resolved, pain with eating, C. difficile test also came back positive today, white blood cell count is elevated also. Has been on Flagyl, will add vancomycin and discontinue the ciprofloxacin. Maintain inpatient status at least 1 more day. Iron deficiency anemia-Down somewhat today. Continue to monitor-check on stool sample Elevated CRP likely related to the resolving colitis. Improved today. Check urinalysis for possible other etiology for the leukocytosis.-Normal Moderate protein, nutrition-will do diet supplement once can tolerate orals Hypokalemia-supplemented and improved Admission status: Treated for dehydration overnight with observation status, patient is not significantly improved. Dehydration appears to be improved but still with recurrent emesis. Medically necessary treatment will span 2 midnights. Continue to status, progression of white blood cell count now positive C. difficile. Likely needs a least 1 more day of hospitalization ? DS: Summary Time Spent with Patient Time attestation: Total time spent providing and/or coordinating discharge services: Time spent: greater than 30 minutes Exam Constitutional Vital Signs, click to edit/add: Last Vital Signs Temp 97.4 F L 01/13/24 08:00 Pulse 56 L 01/13/24 08:00 Resp 18 01/13/24 08:00 BP 127/79 01/13/24 08:00 Pulse Ox 100 01/13/24 08:00 O2 Del Method Room Air 01/13/24 08:00 DS: Data Data Completed and Pending Labs on day of discharge: Labs from last 24 hours 01/13/24 01/12/24 05:03 08:39 WBC 7.2 RBC 3.58 L Hgb 8.7 L Hct 28.8 L MCV 80.4 L MCH 24.3 L MCHC 30.2 RDW 19.0 H Plt Count 242 MPV 10.1 Neut % (Auto) 62.0 Lymph % (Auto) 28.4 [place] % (Auto) 7.9 Eos % (Auto) 1.0 Baso % (Auto) 0.4 Neut # (Auto) 4.5 Lymph # (Auto) 2.1 [place] # (Auto) 0.6 Eos # (Auto) 0.1 Baso # (Auto) 0.0 Abs Immat Gran (auto) 0.02 Imm/Tot Granulo (auto) 0.3 Sodium 134 L Potassium 3.7 Chloride 101 Carbon Dioxide 26.5 Anion Gap 10.2 BUN 4.0 L Creatinine 0.63 Est GFR ( Amer) >60 Est GFR (Non-Af Amer) >60 BUN/Creatinine Ratio 6.3 Glucose 85 Calcium 8.0 L Total Bilirubin 0.3 AST 14 L ALT 8 L Alkaline Phosphatase 42 L C-Reactive Protein 1.09 H Total Protein 5.7 L Albumin 2.5 L Globulin 3.2 Albumin/Globulin Ratio 0.8 Stl C. cayetanensis PCR Not detected Stool Rotavirus (PCR) Not detected Stool Adenovirus (PCR) Not detected Stool Astrovirus (PCR) Not detected Stool Campylobacter PCR Not detected Stool Cryptosporidium PCR Not detected St Sh/Enteroin Ecoli PCR Not detected Stl Enterotoxigenic E PCR Not detected Stool EPEC (PCR) Not detected Stl E. histolytica PCR Not detected Stool Giardia Lamblia PCR Not detected Stl P. shigelloides PCR Not detected Stool Salmonella PCR Not detected Stool Sapovirus (PCR) Not detected Stl Shiga-like Tx [address].enterocolitica PCR Not detected Stl Vibrio cholerae PCR Not detected Stl Enteroaggr Ecoli PCR Not detected Stl Norovirus GI/GII PCR Not detected Specimen Source Stool C. difficile Toxin A&B Detected A* Vibrio Culture Not detected Discharge Plan Discharge Disposition: Home, Self-Care Discharge Medications: New ciprofloxacin HCl [Cipro] 500 mg tablet 500 mg PO Q12H Qty: 30 0RF metronidazole 500 mg tablet 500 mg PO Q8H Qty: 45 0RF prednisone 10 mg tablet 40 mg PO DAILY Qty: 32 0RF Rx Instructions: 4/day for 3 days, 3/day for 3 days, 2/day for 3 days, 1/day for 3 days, 1/2 /day for 4 days Continued escitalopram oxalate 5 mg tablet 5 mg PO DAILY ondansetron HCl 4 mg tablet 4 mg PO Q8H PRN (Reason: nausea and vomiting) 4 Days Qty: 10 0RF hyoscyamine sulfate [Levsin/SL] 0.125 mg tablet, sublingual 0.125 mg PO Q8H PRN (Reason: dyspepsia) Qty: 30 0RF hydrocodone-acetaminophen 5-325 mg tablet 1 tab PO Q6H PRN (Reason: pain) 5 Days Qty: 20 0RF ondansetron 4 mg tablet,disintegrating 4 mg PO Q6H PRN (Reason: nausea and vomiting) Qty: 20 0RF Print Language: Estonian Forms: Portal Instructions Follow Up Appointments: January 19 @ 10:40am with Dr. aRnd [phone]
--- NOTE | 2024-01-13 09:43 | CM.NOTE ---
Rounds made with Dr. Isaac, discussed with pt discharge to home and C-diff diagnosis. Pt states her mother has c-diff. Dr. Isaac discussed importance of taking oral antibiotics at discharge.
--- NOTE | 2024-01-14 13:00 | CM.DCFOLLOWU ---
Person spoke with: Alva How are you feeling? Severe stomach pain How is your pain? uncontrolled- Im in ER right now Did you understand your discharge instructions? Do you have any questions about your discharge instructions? Were you given any prescriptions at discharge? Were you able to get your prescriptions filled? Do you understand how to take your medications as ordered? Do you have any questions about your follow up appointment and do you plan to keep your follow up appointment? Is there anything else that you would like to discuss? Questions/Comments/Concerns/Other:
== END 2024-01-13 10:57 | disposition home or self-care (01) | DRG 248 ==
LOC: ER 15:43 → MS 16:25
PROVIDERS: Physician Assistant; Admitting Provider Family Medicine; Emergency Provider Emergency Medicine; PCP Nurse Practitioner Family; Visit Provider Family Medicine
DX: A04.72 Enterocolitis due to Clostridium difficile, not specified as recurrent (principal); E86.0 Dehydration; E87.6 Hypokalemia; R79.82 Elevated C-reactive protein (CRP); D72.829 Elevated white blood cell count, unspecified; Z98.890 Other specified postprocedural states; Z87.891 Personal history of nicotine dependence; F12.90 Cannabis use, unspecified, uncomplicated; Z79.899 Other long term (current) drug therapy; Z96.622 Presence of left artificial elbow joint; M41.9 Scoliosis, unspecified; Z82.3 Family history of stroke; Z82.49 Family history of ischemic heart disease and other diseases of the circulatory system; Z80.9 Family history of malignant neoplasm, unspecified; R11.2 Nausea with vomiting, unspecified; R10.9 Unspecified abdominal pain; D50.9 Iron deficiency anemia, unspecified; E44.0 Moderate protein-calorie malnutrition; Z68.27 Body mass index [BMI] 27.0-27.9, adult
CPT/HCPCS: 36415; 74022; 74177; 80053; 81003; 83605; 83690; 83735; 84703; 85025; 85652; 86140; 87086; 87493; 87507; 94761; 96361; 96365; 96366; 96367; 96375; 96376; 99285; G0328; G0378; J1100; J1170; Q9967

== ENCOUNTER 2024-01-14 11:58 | Inpatient (IN) | payer OTHER, SELFPAY ==
[2024-01-14] VITALS (30 sets, daily range): BP systolic 126–161; BP diastolic 64–96; PULSE 55–92; TEMP 36.4–36.9; O2SAT 95–100; BMI 23.6
--- NOTE | 2024-01-14 12:19 | ED.ABDPAIN1 ---
HPI - Abdominal Pain General Chief Complaint: Abdominal Pain Stated Complaint: ABDOMINAL PAIN Time Seen by Provider: 01/14/24 12:06 Source: patient Mode of arrival: walk-in Limitations: no limitations History of Present Illness HPI narrative: 48-year-old female presents for abdominal pain and nausea. She was discharged from this hospital yesterday and had been diagnosed with C. difficile. She is on oral vancomycin. She took a [place] and it did not help. The pain is moderate and continuous. No trauma or fever. Related Data Home Medications ?Medication ?Instructions ?Recorded ?Confirmed escitalopram oxalate 5 mg tablet 5 mg PO DAILY 12/24/23 01/10/24 Previous Rx's ?Medication ?Instructions ?Recorded hyoscyamine sulfate 0.125 mg 0.125 mg PO Q8H PRN dyspepsia #30 12/25/23 sublingual tablet (Levsin/SL) tabs ondansetron HCl 4 mg tablet 4 mg PO Q8H PRN nausea and 12/25/23 vomiting 4 days #10 tabs hydrocodone 5 mg-acetaminophen 325 1 tab PO Q6H PRN pain 5 days #20 12/27/23 mg tablet tabs ondansetron 4 mg disintegrating 4 mg PO Q6H PRN nausea and 12/27/23 tablet vomiting #20 tabs metronidazole 500 mg tablet 500 mg PO Q8H #45 tabs 01/12/24 prednisone 10 mg tablet 40 mg (4 x 10 mg) PO DAILY #32 tabs 01/12/24 vancomycin 125 mg capsule 125 mg PO Q6H 10 days #40 caps 01/13/24 Allergies Allergy/AdvReac Type Severity Reaction Status Date / Time No Known Drug Allergies Allergy Verified 12/27/23 07:54 Review of Systems ROS Narrative A ten point review of systems is negative except as noted above. 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 of left artificial elbow joint (ICD-10) Scoliosis ?M41.9 - Scoliosis, unspecified (ICD-10) Surgical History (Updated 01/10/24 @ 16:29 by Jossie Proctor) Previous back surgery ?Z98.890 - Other specified postprocedural states (ICD-10) Family History (Updated 12/24/23 @ 23:13 by Emelina Espinoza) Mother Family history of CHF (congestive heart failure) Family history of cancer Family history of hypertension Family history of myocardial infarction Family history of stroke Father Family history of cancer Social History Within the past year, how often did you have a drink containing alcohol: monthly or less Within the past year, how often did you have six or more drinks on one occasion: less than monthly Smoking status: Former smoker Non-prescribed substance use: cannabis (any form) Previous occupational history: Does not Work Known occupational exposures/hazards: No Highest level of school completed/degree received: some college, no degree Do you want help with school or training: No Are you now , , , , never or living with a partner: never In a typical week, how many times do you talk on the telephone with family, friends, or neighbors: 3 or more times per week How often do you get together with friends or relatives: 3 or more times per week How often do you attend pentecostal or synagogue services: never Do you belong to any clubs or organizations such as pentecostal groups unions, fraternal or athletic groups, or school groups: no Total score: 1 Score interpretation: A score of less than or equal to 1 indicates the most socially isolated. Little interest or pleasure in doing things: not at all Feeling down, depressed, or hopeless: not at all Feel stressed/tense/nervous/anxious/difficulty sleeping: not at all Due to disability, difficulty making decisions: No Do you think of yourself as: straight/heterosexual Gender Identity: female Exam Narrative Exam Narrative: Nurses note and vital signs reviewed and patient is not hypoxic. General: The patient appears well and in no apparent distress. Patient is resting comfortably on cart. Skin: Warm, dry, pallor noted. There is no rash noted. Head: Normocephalic, atraumatic Eye: Normal conjunctiva, no drainage Ears, Nose, Mouth, and Throat: oral mucosa is moist. Nares patent. Cardiovascular: Regular Rate and Rhythm Respiratory: Patient is in no distress, no accessory muscle use, lungs are clear to auscultation, no wheezing, rales or rhonchi Back: non-tender GI: Soft and very minimally tender. No distention Musculoskeletal: The patient has no evidence of calf tenderness, no pitting edema, symmetrical pulses noted bilaterally Neurological: A&O, normal speech Psychiatric: Cooperative Constitutional Vital Signs, click to edit/add: Last Vital Signs Temp 98.4 F 01/14/24 12:03 Pulse 59 L 01/14/24 14:06 Resp 17 01/14/24 14:06 BP 154/78 H 01/14/24 14:06 Pulse Ox 97 01/14/24 14:06 O2 Del Method Room Air 01/14/24 12:03 Course Vital Signs Vital signs: Vital Signs Temperature 98.4 F 01/14/24 12:03 Pulse Rate 64 01/14/24 12:03 Respiratory Rate 20 01/14/24 12:03 Blood Pressure 161/96 H 01/14/24 12:03 Pulse Oximetry 98 01/14/24 12:03 Oxygen Delivery Method Room Air 01/14/24 12:03 Temperature 98.4 F 01/14/24 12:03 Pulse Rate 59 L 01/14/24 14:06 Respiratory Rate 17 01/14/24 14:06 Blood Pressure 154/78 H 01/14/24 14:06 Pulse Oximetry 97 01/14/24 14:06 Oxygen Delivery Method Room Air 01/14/24 12:03 MDM - Abdominal Pain MDM Narrative Medical decision making narrative: The patient has slight elevation in the amylase and the lipase. Right upper quadrant ultrasound is ordered and pending. I have spoken to Dr. Isaac and the patient will be admitted for observation. The patient is known to have C. difficile and is under treatment with oral vancomycin. Differential Diagnosis Differential diagnosis: Likely abdominal pain, constipation, gastroenteritis and pancreatitis Lab Data Attestation: I reviewed the patient's lab results. Labs: Lab Results 01/14/24 Range/Units 12:35 WBC 11.5 H (4.0-11.0) 10^3/uL RBC 4.34 (4.20-5.40) 10^6/uL Hgb 10.7 L (12.0-16.0) g/dL Hct 34.1 L (36.0-48.0) % MCV 78.6 L (81.0-99.0) fL MCH 24.7 L (26.7-34.0) pg MCHC 31.4 (29.9-35.2) g/dL RDW 18.6 H (11.0-15.0) % Plt Count 338 (150-450) 10^3/uL MPV 10.2 (9.5-13.5) fL Neut % (Auto) 87.4 H (43.0-75.0) % Lymph % (Auto) 8.1 L (20.5-60.0) % [place] % (Auto) 3.8 (1.7-12.0) % Eos % (Auto) 0.0 L (0.9-7.0) % Baso % (Auto) 0.1 L (0.2-2.0) % Neut # (Auto) 10.0 H (1.4-6.5) 10^3/uL Lymph # (Auto) 0.9 L (1.2-3.8) 10^3/uL [place] # (Auto) 0.4 (0.3-0.8) 10^3/uL Eos # (Auto) 0.0 (0.0-0.7) 10^3/uL Baso # (Auto) 0.0 (0.0-0.1) 10^3/uL Abs Immat Gran (auto) 0.07 H (0.00-0.03) 10^3/uL Imm/Tot Granulo (auto) 0.6 H (0.0-0.5) % Sodium 136 (136-145) mmol/L Potassium 3.4 L (3.5-5.1) mmol/L Chloride 99 (98-107) mmol/L Carbon Dioxide 24.9 (21.0-32.0) mmol/L Anion Gap 15.5 BUN 6.0 L (7.0-18.0) mg/dL Creatinine 0.63 (0.55-1.02) mg/dL Est GFR ( Amer) >60 (>=60) Est GFR (Non-Af Amer) >60 (>=60) BUN/Creatinine Ratio 9.5 Glucose 111 H (74-106) mg/dL Calcium 8.7 (8.5-10.1) mg/dL Total Bilirubin 0.5 (0.2-1.0) mg/dL Direct Bilirubin 0.1 (0.0-0.2) mg/dL AST 12 L (15-37) U/L ALT 13 L (14-59) U/L Alkaline Phosphatase 55 (46-116) U/L Total Protein 7.5 (6.4-8.2) g/dL Albumin 3.4 (3.4-5.0) g/dL Globulin 4.1 g/dL Albumin/Globulin Ratio 0.8 Amylase 130 H (25-115) U/L Lipase 240.0 H (16.0-77.0) U/L Discharge Plan Discharge Chief Complaint: Abdominal Pain Clinical Impression: Intractable abdominal pain Patient Disposition: Admitted as Observation Time of Disposition Decision: 15:00 Condition: Good
[2024-01-14] MEDS: 0.9 % SODIUM CHLORIDE 1,000 ML 1000 ML IV (12:27)
[2024-01-14] MEDS: MORPHINE SULFATE 4 MG/ML VIAL IV ×2 (12:28→14:06)
[2024-01-14] MEDS: ONDANSETRON PF 4 MG/2 ML VIAL IV ×2 (12:29→21:23)
[2024-01-14 12:58] LABS: Basophils Percent Auto 0.1 % (0.2-2.0); Hematocrit 34.1 % (36.0-48.0); Hemoglobin 10.7 g/dL (12.0-16.0); Immature Granulocytes Abs Auto 0.07 10^3/uL (0.00-0.03); Immature Granulocytes Pct Auto 0.6 % (0.0-0.5); Lymphocytes Absolute Auto 0.9 10^3/uL (1.2-3.8); Lymphocytes Percent Auto 8.1 % (20.5-60.0); Mean Corpuscular HGB Conc 31.4 g/dL (29.9-35.2); Mean Corpuscular Hemoglobin 24.7 pg (26.7-34.0); Mean Corpuscular Volume 78.6 fL (81.0-99.0); Mean Platelet Volume 10.2 fL (9.5-13.5); Monocytes Absolute Auto 0.4 10^3/uL (0.3-0.8); Monocytes Percent Auto 3.8 % (1.7-12.0); Neutrophils Percent Auto 87.4 % (43.0-75.0); Platelet Count 338 10^3/uL (150-450); Red Blood Count 4.34 10^6/uL (4.20-5.40); Red Cell Distribution Width 18.6 % (11.0-15.0); White Blood Count 11.5 10^3/uL (4.0-11.0)
[2024-01-14 13:07] LABS: Alanine Aminotransferase 13 U/L (14-59); Albumin Globulin Ratio 0.8; Albumin Level 3.4 g/dL (3.4-5.0); Alkaline Phosphatase 55 U/L (46-116); Amylase 130 U/L (25-115); Anion Gap 15.5; Aspartate Amino Transferase 12 U/L (15-37); BUN Creatinine Ratio 9.5; Bilirubin Direct 0.1 mg/dL (0.0-0.2); Bilirubin Total 0.5 mg/dL (0.2-1.0); Calcium 8.7 mg/dL (8.5-10.1); Carbon Dioxide 24.9 mmol/L (21.0-32.0); Chloride 99 mmol/L (98-107); Estimated GFR (African America >60 (>=60); Estimated GFR (Non-African Ame >60 (>=60); Globulin 4.1 g/dL; Glucose 111 mg/dL (74-106); Potassium 3.4 mmol/L (3.5-5.1); Sodium 136 mmol/L (136-145); Total Protein 7.5 g/dL (6.4-8.2)
--- NOTE | 2024-01-14 13:43 | ECG_ITS ---
The [facility] Test Date: 2024-01-14 Pat Name: KELLI LAKE Department: Room: - Gender: Female Dumpman: : 1975 Requested By: Cande Rand Order Number: [id number] Reading MD: HAFSA RODAS Measurements Intervals Jack Rate: 61 P: 64 WA: 136 QRS: 83 QRSD: 86 T: 73 QT: 438 QTc: 440 Interpretive Statements 1100 Sinus rhythm 9110 normal ECG No previous ECG available for comparison Electronically Signed On 01-14-2024 17:53:00 EDT by HAFSA RODAS
--- NOTE | 2024-01-14 14:59 | US_ITS ---
The [address] [address] Patient Name: KELLI LAKE MRN: [id number] date: 1975 Sex: F Assigned Patient Location: [place] Current Patient Location: [place] Accession/Order Number: [id number] Exam Date: 01/14/2024 17:30 Report Date: 01/14/2024 20:10 At the request of: MAIDA MEMBRENO Procedure: US right upper quadrant EXAM: US right upper quadrant HISTORY: Abdominal pain, attention pancreas COMPARISON:CT abdomen pelvis w con Date 01/10/2024 TECHNIQUE: Limited right upper quadrant ultrasound is performed. Multiple grayscale images are submitted for review. FINDINGS: The liver demonstrates normal morphology with normal echotexture. Small ascites may be seen about the inferior border of the liver. The portal vein is patent with normal hepatopedal flow. No gallstone is visualized. No significant gallbladder wall thickening is seen. The gallbladder wall measures 2.3 mm in thickness. Sonographic Thompson sign is absent. Common bile duct measures 2.7 mm in diameter. The pancreas is poorly visualized due to obscuration by bowel gas. The right kidney measures 9.8 x 6 x 6.9 cm and demonstrates normal morphology with normal Doppler flow. There is no evidence for hydronephrosis. US/US right upper quadrant IMPRESSION: The pancreas is poorly visualized due to obstruction by bowel gas. Questionable small ascites may be seen about the inferior border of the liver. If clinically indicated, follow-up CT imaging may be considered. Electronically authenticated by: ANTONIO LOPEZ Date: 01/14/2024 20:10
--- NOTE | 2024-01-14 15:49 | P.HP_ITS ---
HPI H&P: HPI History of Present Illness Chief complaint: ABDOMINAL PAIN Intractable Narrative: 01/14/24 5149 This is a 48-year-old female history with a relatively benign past medical history significant for depression and recent admission to the hospital for C. difficile colitis with discharge yesterday; and who presented to the ED today complaining of acute onset of abdominal pain and nausea this morning. She reports that she was feeling well at the time of discharge yesterday and overnight. This morning she took her pills about 9 AM and shortly afterward noted onset of epigastric pain that radiated through to her back. She also was nauseated. She did not eat breakfast prior to onset of her discomfort. She took her [place] that was prescribed at discharge yesterday without improvement in her pain. Eventually she presented to the ED for further evaluation as her pain was persistent and unrelenting. She experienced emesis x 2 after arrival in the ED. Workup in the ED revealed mild leukocytosis (11.5), mild anemia (10.7), mild hypokalemia (3.4), and elevated amylase (130) and lipase (240). Her lab results were consistent with acute pancreatitis and she is being admitted as an inpatient to the hospitalist service. At the time of my exam the patient is resting comfortably on the side of the bed. She continues to complain of epigastric pain and tenderness that radiates through to her back. She has mild nausea but no current vomiting. Otherwise she denies acute complaints. She denies chest pain, shortness of breath, or diarrhea. She reports that her primary symptom with her C. difficile was also nausea and vomiting without significant diarrhea. Opioid HPI Opioid Management Most Recent Opioid Data: Last Pain Scale 0 01/19/24 06:09 Last Pain Assessment 01/19/24 06:09 Last MAR Pain Assessment 01/19/24 01:12 Last ORT Total Score 0 01/14/24 16:08 Last ORT Risk Category Low Risk 01/14/24 16:08 Review of Systems ROS Status of ROS 10 or more systems reviewed and unremark able except as noted in history and below [facility] Medical History (Updated 01/17/24 @ 07:48 by Addy Aleman MD) Intractable nausea and vomiting ?R11.2 - Nausea with vomiting, unspecified (ICD-10) Intractable abdominal pain ?R10.9 - Unspecified abdominal pain (ICD-10) Depression ?F32.A - Depression, unspecified (ICD-10) Colitis ?K52.9 - Noninfective gastroenteritis and colitis, unspecified (ICD-10) Acute proctitis ?K62.89 - Other specified diseases of anus and rectum (ICD-10) 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 of left artificial elbow joint (ICD-10) Scoliosis ?M41.9 - Scoliosis, unspecified (ICD-10) Surgical History Previous back surgery ?Z98.890 - Other specified postprocedural states (ICD-10) Family History Mother Family history of CHF (congestive heart failure) Family history of cancer Family history of hypertension Family history of myocardial infarction Family history of stroke Father Family history of cancer Social History Within the past year, how often did you have a drink containing alcohol: monthly or less Within the past year, how often did you have six or more drinks on one occasion: less than monthly Smoking status: Former smoker Non-prescribed substance use: cannabis (any form) Previous occupational history: Does not Work Known occupational exposures/hazards: No Highest level of school completed/degree received: some college, no degree Do you want help with school or training: No Are you now , , , , never or living with a partner: never In a typical week, how many times do you talk on the telephone with family, friends, or neighbors: 3 or more times per week How often do you get together with friends or relatives: 3 or more times per week How often do you attend scientologist or buddhist services: never Do you belong to any clubs or organizations such as scientologist groups unions, fraternal or athletic groups, or school groups: no Total score: 1 Score interpretation: A score of less than or equal to 1 indicates the most socially isolated. Little interest or pleasure in doing things: not at all Feeling down, depressed, or hopeless: not at all Feel stressed/tense/nervous/anxious/difficulty sleeping: not at all Due to disability, difficulty making decisions: No Do you think of yourself as: straight/heterosexual Gender Identity: female Meds Home Medications and Allergies Home Medications ?Medication ?Instructions ?Recorded ?Confirmed ?Type escitalopram oxalate 5 mg tablet 5 mg PO DAILY 12/24/23 01/14/24 History hyoscyamine sulfate 0.125 mg 0.125 mg PO Q8H PRN dyspepsia #30 12/25/23 01/14/24 Rx sublingual tablet (Levsin/SL) tabs ondansetron HCl 4 mg tablet 4 mg PO Q8H PRN nausea and 12/25/23 01/14/24 Rx vomiting 4 days #10 tabs hydrocodone 5 mg-acetaminophen 325 1 tab PO Q6H PRN pain 5 days #20 12/27/23 01/14/24 Rx mg tablet tabs ondansetron 4 mg disintegrating 4 mg PO Q6H PRN nausea and 12/27/23 01/14/24 Rx tablet vomiting #20 tabs metronidazole 500 mg tablet 500 mg PO Q8H #45 tabs 01/12/24 01/14/24 Rx prednisone 10 mg tablet 40 mg (4 x 10 mg) PO DAILY #32 tabs 01/12/24 01/14/24 Rx vancomycin 125 mg capsule 125 mg PO Q6H 10 days #40 caps 01/13/24 01/14/24 Rx Allergies Allergy/AdvReac Type Severity Reaction Status Date / Time No Known Drug Allergies Allergy Verified 12/27/23 07:54 Exam Constitutional Vital Signs, click to edit/add: Last Vital Signs Temp 98.4 F 01/14/24 12:03 Pulse 92 H 01/14/24 15:42 Resp 18 01/14/24 15:42 BP 149/95 H 01/14/24 15:42 Pulse Ox 96 01/14/24 15:42 O2 Del Method Room Air 01/14/24 15:42 Common normals: no apparent distress, oriented x3, alert and well nourished General appearance: cooperative Orientation/consciousness: Yes awake HENMT Common normals: normocephalic, head/scalp atraumatic, hearing grossly normal bilaterally, external nose normal and moist oral mucous membranes Eye Common normals: PERRL, EOMs intact bilaterally, conjunctivae normal and no scleral icterus Alignment: alignment normal Eyelid: eyelids normal Neck & C-Spine Common normals: full ROM, supple and no JVD Chest Common normals: inspection of chest normal Chest: symmetrical chest wall rise Respiratory Common normals: normal respiratory effort, no retractions, no use of accessory muscles and clear to auscultation bilaterally Effort & inspection: able to speak in complete sentences Cardio Common normals: no JVD, regular rate, regular rhythm, S1 normal heart sound, S2 normal heart sound, no gallops, no clicks, no murmurs, no rub and peripheral pulses 2+ throughout GI Common normals: Normal to inspection, nondistended, normoactive bowel sounds present, soft to palpation, no hepatosplenomegaly, no masses and no bruits Palpation: soft, tender (Epigastric area) and no hepatosplenomegaly; no guarding and not rigid Bladder/kidney exam: bladder normal to palpation Back & Pelvis General back: other (Significant scoliosis deformity) Extremity Common normals: normal capillary refill and no pedal edema General: normal exam except as noted; no clubbing and no cyanosis Neuro Saurabh Coma Scale: GCS not evaluated Common normals: CN's II-XII intact bilaterally, moves all extremities, no focal motor deficits and no sensory deficits noted Speech: speech normal Motor exam: strength 5/5 throughout Psych Common normals: mental status grossly normal, thought process normal, affect normal and activity/motor behavior normal Results Labs Labs: Short CBC 01/14/24 Range/Units 12:35 WBC 11.5 H (4.0-11.0) 10^3/uL Hgb 10.7 L (12.0-16.0) g/dL Hct 34.1 L (36.0-48.0) % Plt Count 338 (150-450) 10^3/uL BMP 01/14/24 12:35 Sodium 136 Potassium 3.4 L Chloride 99 Carbon Dioxide 24.9 BUN 6.0 L Creatinine 0.63 Glucose 111 H Calcium 8.7 Liver Function 01/14/24 Range/Units 12:35 Total Bilirubin 0.5 (0.2-1.0) mg/dL Direct Bilirubin 0.1 (0.0-0.2) mg/dL AST 12 L (15-37) U/L ALT 13 L (14-59) U/L Alkaline Phosphatase 55 (46-116) U/L Albumin 3.4 (3.4-5.0) g/dL Pulse Oximetry Attestation: I have reviewed the pertinent pulse oximetry results. Assessment and Plan Assessment and Plan (1) Acute pancreatitis: Assessment and Plan: Acute * Adm inpatient * We anticipate greater than a 2 midnight stay for medically necessary hospital care including close monitoring of labs, IV pain and nausea medications while NPO, IVFs * Lipase 240 in the ED - greater than 3x ULN * NPO except for PO Vancomycin (see c-diff colitis) * Scheduled IVP Toradol, PRN IVP Fentanyl * LR at 125/hr * PRN Zofran and Compazine - may be alternated for improved nausea control * Avoid IV ABX for now in setting of active C-diff and mild to mod pancreatitis * Mild leukocytosis in ED (11.5), but pt is afebrile, normotensive, w/ normal mentation and no evidence of poor peripheral perfusion. Sepsis is not clinically suspected. * US RUQ - pending * Assess for obstructive process vs abscess vs other pathology associated w/ acute pancreatitis * CBC, CMP, Amylase, Lipase in AM (2) Clostridium difficile colitis: Assessment and Plan: Acute * Continue PO Vancomycin per discharge medications from 01/13/24 * Hold PO Flagyl for now d/t SE of nausea and abdominal pain in setting of acute pancreatitis * PO Vancomycin is adequate C-diff treatment for uncomplicated C-diff * Nausea medication as above * Improving (3) Hypokalemia: Assessment and Plan: Acute * Mild, K+ 3.4 in the ED, asymptomatic * Avoid PO KCL for now * LR at 125 - small amount of KCL in LR * Repeat CMP in AM - consider KCL supplementation if hypokalemia worsens (4) Depression: Assessment and Plan: Chronic * Continue home Lexapro
--- OUTSIDE RECORDS SUMMARY | 2024-01-14 15:58 | XMS_ITS | CCD ---
Author Organization [facility] Inform ion Partnership [facility] Care Team Providers Care Social Contact Worker Name Role Phone PANCHITO JUAREZ Admitting Unavailable [...] Anion gap [Moles/Vol] 8 mmol/L Normal 5-15 [facility] Comment on above: Performed By: #### B MP #### [facility] ([id number]) [address] [address] [place] [address] Calcium [Mass/Vol] 8.6 mg/dL Normal 8.5-10.5 [facility] Comment on above: Performed By: #### B MP #### [facility] ([id number]) [address] [address] Chloride [Moles/Vol] 105 mmol/L Normal 98-109 [facility] Comment on above: Performed By: #### B MP #### [facility] ([id number]) [address] [address] CO2 [Moles/Vol] 25 mmol/L Normal 22-32 [facility] Comment on above: Performed By: #### B MP #### [facility] ([id number]) [address] [address] Creatinine [Mass/Vol] 0.74 mg/dL Normal 0.40-1.00 [facility] Comment on above: Result Comment: METH OD TRACEABLE TO IDMS STANDARD Performed By: #### B MP #### [facility] ([id number]) [address] [address] eGFR (CKD-EPI) NON-RACE DEPENDENT >90 Normal >59 [facility] Comment on above: Result Comment: Reported eGFR is based on the CKD-EPI 2020 equation that does not use a race coefficient. Performed By: #### B MP #### [facility] ([id number]) [address] [place] [address] Glucose [Mass/Vol] 87 mg/dL Normal 65-99 [facility] Comment on above: Performed By: #### B MP #### [facility] ([id number]) [address] [place] [address] Potassium [Moles/Vol] 3.9 mmol/L Normal 3.5-5.0 [facility] Comment on above: Performed By: #### B MP #### [facility] ([id number]) [address] [place] [address] Sodium [Moles/Vol] 138 mmol/L Normal 134-146 [facility] Comment on above: Performed By: #### B MP #### [facility] ([id number]) [address] [place] [address] Urea nitrogen [Mass/Vol] 5 mg/dL Normal 5-23 [facility] Comment on above: Performed By: #### B MP #### [facility] ([id number]) [address] [place] [address] INFLUENZA A AND B AGon 08-27 [facility] SEE BELOW Normal [facility] Comment on above: Result Comment: Nega tive for Flu A protein angiten. Infection due to Flu A cannot be ruled out. Flu A angiten in the sample may be below the detection limit of the test. Performed By: #### I NFLUAB #### [facility] [address] [place] [address] Jessie [facility] Normal [facility] Comment on above: Result Comment: Nega tive for Flu B protein antigen. Infection due to Flu B cannot be ruled out. Flu B antigen in the sample may be below the detection limit of the test. Performed By: #### I NFLUAB #### [facility] [address] [place], [place] [address] Jessie Gandhi INFLUENZA A AG Negative Normal NEGATIVE SEE COMMENT [facility] Comment on above: Performed By: #### I NFLUAB #### [facility] [address] [place], [place] [address] Jessie Gandhi INFLUENZA B AG Negative Normal NEGATIVE SEE COMMENT [facility] Comment on above: Performed By: #### I NFLUAB #### [facility] [address] [place], [place] [address] Jessie Gandhi INTERNAL CONTROLS Within Normal Limits Normal Within Normal Limits [facility] Comment on above: Performed By: #### I NFLUAB #### [facility] [address] [place], [place] [address] Jessie Gandhi Encounters Encounter Date Encounter Type Care Provider Facility Start: 01-07-2024 End: 01-08-2024 ambulatory [facility] Start: 01-07-2024 End: 01-07-[address] [facility] Start: 08-27-2019 End: 08-27-2019 Patient encounter procedure PANCHITO JUAREZ Facility: Procedures Date Procedure Procedure Detail Performing Clinician Start: 01-07-2024 Follow-up visit Follow-up ANDREW JUAREZ Payers Date Payer Category Payer Medicaid [id number] 1975 Unknown [id number] 1975 Unknown [id number] [id number] 1975 Unknown [id number] [id number] [id number] 1957 Unknown [id number] Summary Purpose Family History No Family History Records FoundNo Family History Records FoundNo Family History Records Found Advance Directives No Advanced Directives Records FoundNo Advanced Directives Records FoundNo Advanced Directives Records Found Additional Source Comments INFORMATION SOURCE (unrecogn ized section and content) DATE CREATED AUTHOR 08/29/2019 [facility] DATE CREATED AUTHOR AUTHOR'S ORGANIZ ATION 01/09/2024 [facility] DATE CREATED AUTHOR AUTHOR'S PAMELA REGALADO 01/10/2024 [facility] FOR RECORDS PERTAINING TO PATIENTS WHO ARE [...] BE BASED ON THE PRIMARY CLINICAL RECORDS. [facility] [employer] [facility]. provides no warranty or guarantee of the accuracy or completeness of information in this document.
[2024-01-14] MEDS: LACTATED RINGER'S SOLUTION 1,000 ML 125 ML IV (17:17)
[2024-01-14] MEDS: KETOROLAC TROMETHAMINE 30 MG/ML VIAL IVP ×2 (17:18→23:11)
--- OUTSIDE RECORDS SUMMARY | 2024-01-14 17:25 | XMS_ITS | CCD ---
Author Organization [facility] Inform ion Partnership [facility] Care Team Providers Care Government Minister Name Role Phone PANCHITO JUAREZ Admitting Unavailable [...] Anion gap [Moles/Vol] 8 mmol/L Normal 5-15 [facility] Comment on above: Performed By: #### B MP #### [facility] ([id number]) [address] [address] [place] [address] Calcium [Mass/Vol] 8.6 mg/dL Normal 8.5-10.5 [facility] Comment on above: Performed By: #### B MP #### [facility] ([id number]) [address] [address] Chloride [Moles/Vol] 105 mmol/L Normal 98-109 [facility] Comment on above: Performed By: #### B MP #### [facility] ([id number]) [address] [address] CO2 [Moles/Vol] 25 mmol/L Normal 22-32 [facility] Comment on above: Performed By: #### B MP #### [facility] ([id number]) [address] [address] Creatinine [Mass/Vol] 0.74 mg/dL Normal 0.40-1.00 [facility] Comment on above: Result Comment: METH OD TRACEABLE TO IDMS STANDARD Performed By: #### B MP #### [facility] ([id number]) [address] [address] eGFR (CKD-EPI) NON-RACE DEPENDENT >90 Normal >59 [facility] Comment on above: Result Comment: Reported eGFR is based on the CKD-EPI 2020 equation that does not use a race coefficient. Performed By: #### B MP #### [facility] ([id number]) [address] [place] [address] Glucose [Mass/Vol] 87 mg/dL Normal 65-99 [facility] Comment on above: Performed By: #### B MP #### [facility] ([id number]) [address] [place] [address] Potassium [Moles/Vol] 3.9 mmol/L Normal 3.5-5.0 [facility] Comment on above: Performed By: #### B MP #### [facility] ([id number]) [address] [place] [address] Sodium [Moles/Vol] 138 mmol/L Normal 134-146 [facility] Comment on above: Performed By: #### B MP #### [facility] ([id number]) [address] [place] [address] Urea nitrogen [Mass/Vol] 5 mg/dL Normal 5-23 [facility] Comment on above: Performed By: #### B MP #### [facility] ([id number]) [address] [place] [address] INFLUENZA A AND B AGon 08-27 [facility] SEE BELOW Normal [facility] Comment on above: Result Comment: Nega tive for Flu A protein angiten. Infection due to Flu A cannot be ruled out. Flu A angiten in the sample may be below the detection limit of the test. Performed By: #### I NFLUAB #### [facility] [address] [place] [address] Jessie [facility] SEE BELOW Normal [facility] Comment on above: Result Comment: Nega tive for Flu B protein antigen. Infection due to Flu B cannot be ruled out. Flu B antigen in the sample may be below the detection limit of the test. Performed By: #### I NFLUAB #### [facility] [address] [place], [place] [address] Jessie Gandhi INFLUENZA A AG Negative Normal NEGATIVE SEE COMMENT [facility] Comment on above: Performed By: #### I NFLUAB #### [facility] [address] [place], [place] [address] Jessie Gandhi INFLUENZA B AG Negative Normal NEGATIVE SEE COMMENT [facility] Comment on above: Performed By: #### I NFLUAB #### [facility] [address] [place], [place] [address] Jessie Gandhi INTERNAL CONTROLS Within Normal Limits Normal Within Normal Limits [facility] Comment on above: Performed By: #### I NFLUAB #### [facility] [address] [place], [place] [address] Jessie Gandhi Encounters Encounter Date Encounter Type Care Provider Facility Start: 01-07-2024 End: 01-08-2024 ambulatory [facility] Start: 01-07-2024 End: 01-07-2024 ambulatory [facility] Start: 08-27-2019 End: 08-27-2019 Patient encounter procedure PANCHITO JUAREZ Facility: Procedures Date Procedure Procedure Detail Performing Clinician Start: 01-07-2024 Follow-up visit Follow-up ANDREW JUAREZ Payers Date Payer Category Payer Medicaid [id number] 1975 Unknown [id number] [id number] [id number] 1975 Unknown [id number] [id number] [id number] 1975 Unknown [id number] 2.16.8 [id number] 1957 Unknown [id number] Summary Purpose Family History No Family History Records FoundNo Family History Records FoundNo Family History Records Found Advance Directives No Advanced Directives Records FoundNo Advanced Directives Records FoundNo Advanced Directives Records Found Additional Source Comments INFORMATION SOURCE (unrecogn ized section and content) DATE CREATED AUTHOR 08/29/2019 [facility] DATE CREATED AUTHOR AUTHOR'S ORGANIZ ATION 01/09/2024 [facility] DATE CREATED AUTHOR AUTHOR'S PAMELA REGALADO 01/10/2024 [facility] FOR RECORDS PERTAINING TO PATIENTS WHO [...] PRIMARY CLINICAL RECORDS. [facility] [employer] [facility]. provides no warranty or guarantee of the accuracy or completeness of information in this document.
[2024-01-14] MEDS: VANCOMYCIN HCL 7,500 MG/150 ML BOTTLE 125 MG PO ×2 (17:30→23:12)
[2024-01-15] MEDS: LACTATED RINGER'S SOLUTION 1,000 ML 125 ML IV ×3 (00:58→17:17)
[2024-01-15] MEDS: ONDANSETRON PF 4 MG/2 ML VIAL IV (04:22)
[2024-01-15 05:01] LABS: Basophils Percent Auto 0.2 % (0.2-2.0); Eosinophils Percent Auto 0.2 % (0.9-7.0); Hematocrit 32.2 % (36.0-48.0); Immature Granulocytes Abs Auto 0.06 10^3/uL (0.00-0.03); Immature Granulocytes Pct Auto 0.5 % (0.0-0.5); Lymphocytes Absolute Auto 1.6 10^3/uL (1.2-3.8); Lymphocytes Percent Auto 12.7 % (20.5-60.0); Mean Corpuscular HGB Conc 31.1 g/dL (29.9-35.2); Mean Corpuscular Hemoglobin 24.4 pg (26.7-34.0); Mean Corpuscular Volume 78.5 fL (81.0-99.0); Mean Platelet Volume 10.6 fL (9.5-13.5); Monocytes Absolute Auto 0.8 10^3/uL (0.3-0.8); Monocytes Percent Auto 6.6 % (1.7-12.0); Neutrophils Absolute Auto 9.7 10^3/uL (1.4-6.5); Neutrophils Percent Auto 79.8 % (43.0-75.0); Platelet Count 294 10^3/uL (150-450); Red Cell Distribution Width 18.5 % (11.0-15.0); White Blood Count 12.2 10^3/uL (4.0-11.0)
[2024-01-15 05:52] LABS: Alanine Aminotransferase 14 U/L (14-59); Albumin Globulin Ratio 0.8; Albumin Level 2.9 g/dL (3.4-5.0); Alkaline Phosphatase 45 U/L (46-116); Aspartate Amino Transferase 14 U/L (15-37); BUN Creatinine Ratio 5.4; Bilirubin Total 0.5 mg/dL (0.2-1.0); Carbon Dioxide 25.3 mmol/L (21.0-32.0); Chloride 98 mmol/L (98-107); Estimated GFR (African America >60 (>=60); Estimated GFR (Non-African Ame >60 (>=60); Globulin 3.5 g/dL; Glucose 92 mg/dL (74-106); Potassium 3.3 mmol/L (3.5-5.1); Sodium 133 mmol/L (136-145); Total Protein 6.4 g/dL (6.4-8.2)
[2024-01-15 05:53] LABS: Amylase 145 U/L (25-115)
[2024-01-15 06:00] VITALS: BP 152/83; PULSE 67; TEMP 37; O2SAT 97
[2024-01-15] MEDS: KETOROLAC TROMETHAMINE 30 MG/ML VIAL IVP ×4 (06:18→23:32)
[2024-01-15] MEDS: VANCOMYCIN HCL 7,500 MG/150 ML BOTTLE 125 MG PO ×4 (06:19→23:31)
--- NOTE | 2024-01-15 08:03 | PM.PN ---
Progress Note: Subjective Subjective Interval history: This morning, patient denies nausea or vomiting, or diarrhea. Abdominal pain has improved. Patient NPO. She was discharged home with flagyl and Vanc. We discussed how the Flagyl may have caused her signs and symptoms. She was being treated for C Diff colitis. Patients mother also is being treated for C diff. Has been on antibiotics recently for recurrent colitis. Lipase was elevated, improving this morning. Discussed advancing diet today to clear liquid. No fevers, chest pain, coughing. Exam Narrative Exam Narrative: General: Patient is alert, and oriented to person, place and time with normal affect, proper hygiene Skin: no visible rashes, or ulcers Head: atraumatic, acephalic Heart: Normal rate and rhythm, no murmurs/rubs/gallops Lungs: no audible wheezes, crackles and normal breath sounds all lung quan Abdomen: Normal audible bowel sounds, no distension, No palpable masses, no organomegaly, no rebound/guarding/ or rigidity Musculoskeletal: no swelling bilateral lower extremities, severe scoliosis Neuro: CN II-X grossly intact Constitutional Vital Signs, click to edit/add: Last Vital Signs Temp 98.6 F 01/15/24 06:00 Pulse 67 01/15/24 06:00 Resp 18 01/15/24 06:00 BP 152/83 H 01/15/24 06:00 Pulse Ox 97 01/15/24 06:00 O2 Del Method Room Air 01/15/24 06:00 Progress Note: Objective Labs Labs: Short CBC 01/14/24 01/15/24 Range/Units 12:35 04:09 WBC 11.5 H 12.2 H (4.0-11.0) 10^3/uL Hgb 10.7 L 10.0 L (12.0-16.0) g/dL Hct 34.1 L 32.2 L (36.0-48.0) % Plt Count 338 294 (150-450) 10^3/uL BMP 01/14/24 01/15/24 12:35 04:09 Sodium 136 133 L Potassium 3.4 L 3.3 L Chloride 99 98 Carbon Dioxide 24.9 25.3 BUN 6.0 L 3.0 L Creatinine 0.63 0.56 Glucose 111 H 92 Calcium 8.7 8.0 L Liver Function 05/24/24 05/25/24 Range/Units 12:35 04:09 Total Bilirubin 0.5 0.5 (0.2-1.0) mg/dL Direct Bilirubin 0.1 (0.0-0.2) mg/dL AST 12 L 14 L (15-37) U/L ALT 13 L 14 (14-59) U/L Alkaline Phosphatase 55 45 L (46-116) U/L Albumin 3.4 2.9 L (3.4-5.0) g/dL Progress Note: A&P Assessment and Plan (1) Acute pancreatitis: Assessment and Plan: Lipase 240, down to 232, WBC's 12.2. Stopped flagyl, symptoms improving, monitor LFT s (normal) and lipase daily, advance diet to clears. Pain control. Ultrasound of RUQ showed poorly visualized pancreas. I also reviewed CT from 01/10/24 which showed normal pancreas, suspected colitis, stool was positive for C.Diff; if decline then will repeat imaging (CT abdomen) Qualifiers: Pancreatitis type: drug induced Acute pancreatitis complication: unspecified Qualified Code(s): K85.30 - Drug induced acute pancreatitis without necrosis or infection (2) Clostridium difficile colitis: Assessment and Plan: continue oral vancomycin (3) Hypokalemia: Assessment and Plan: replace orally with Klorcon 20MEQ BID (4) Depression: Assessment and Plan: continue escitalopram Qualifiers: Depression Type: unspecified Qualified Code(s): F32.A - Depression, unspecified Plan patient is a full code continue Lovenox for DVT prophylaxis
[2024-01-15 08:58] VITALS: BP 124/72; PULSE 55; TEMP 36.8; O2SAT 98
[2024-01-15] MEDS: ESCITALOPRAM 10 MG TABLET 5 MG PO (08:59)
[2024-01-15] MEDS: POTASSIUM CHLORIDE 10 MEQ ER TABLET 20 MEQ PO ×2 (08:59→20:23)
[2024-01-15] MEDS: DEXAMETHASONE SOD PHOS 100 MG/10 ML MDV 6 MG IV (10:32)
[2024-01-15 14:00] VITALS: BP 120/74; PULSE 56; TEMP 36.8; O2SAT 96
[2024-01-15] MEDS: ENOXAPARIN SODIUM 40 MG/0.4 ML SYRINGE SUBQ (17:17)
[2024-01-15 19:56] VITALS: BP 137/71; PULSE 66; TEMP 37.2; O2SAT 97
[2024-01-15 23:22] VITALS: BP 121/67; PULSE 59; TEMP 36.8; O2SAT 96
[2024-01-16] MEDS: LACTATED RINGER'S SOLUTION 1,000 ML 125 ML IV ×3 (00:42→16:50)
[2024-01-16 04:41] LABS: Basophils Percent Auto 0.2 % (0.2-2.0); Eosinophils Percent Auto 0.3 % (0.9-7.0); Hematocrit 30.4 % (36.0-48.0); Hemoglobin 9.3 g/dL (12.0-16.0); Immature Granulocytes Abs Auto 0.06 10^3/uL (0.00-0.03); Immature Granulocytes Pct Auto 0.4 % (0.0-0.5); Lymphocytes Absolute Auto 2.2 10^3/uL (1.2-3.8); Mean Corpuscular HGB Conc 30.6 g/dL (29.9-35.2); Mean Corpuscular Hemoglobin 24.1 pg (26.7-34.0); Mean Corpuscular Volume 78.8 fL (81.0-99.0); Mean Platelet Volume 9.7 fL (9.5-13.5); Monocytes Absolute Auto 1.1 10^3/uL (0.3-0.8); Monocytes Percent Auto 7.4 % (1.7-12.0); Neutrophils Absolute Auto 11.1 10^3/uL (1.4-6.5); Neutrophils Percent Auto 76.7 % (43.0-75.0); Platelet Count 275 10^3/uL (150-450); Red Blood Count 3.86 10^6/uL (4.20-5.40); Red Cell Distribution Width 18.7 % (11.0-15.0); White Blood Count 14.5 10^3/uL (4.0-11.0)
[2024-01-16 05:04] LABS: Alanine Aminotransferase 11 U/L (14-59); Albumin Globulin Ratio 0.7; Albumin Level 2.6 g/dL (3.4-5.0); Alkaline Phosphatase 40 U/L (46-116); Anion Gap 11.2; Aspartate Amino Transferase 8 U/L (15-37); BUN Creatinine Ratio 6.6; Bilirubin Total 0.4 mg/dL (0.2-1.0); Calcium 7.8 mg/dL (8.5-10.1); Carbon Dioxide 26.6 mmol/L (21.0-32.0); Chloride 102 mmol/L (98-107); Estimated GFR (African America >60 (>=60); Estimated GFR (Non-African Ame >60 (>=60); Globulin 3.6 g/dL; Glucose 79 mg/dL (74-106); Potassium 3.8 mmol/L (3.5-5.1); Sodium 136 mmol/L (136-145); Total Protein 6.2 g/dL (6.4-8.2)
[2024-01-16] MEDS: KETOROLAC TROMETHAMINE 30 MG/ML VIAL IVP (05:40)
[2024-01-16] MEDS: VANCOMYCIN HCL 7,500 MG/150 ML BOTTLE 125 MG PO ×3 (05:44→17:04)
[2024-01-16 06:00] VITALS: BP 122/68; PULSE 72; TEMP 36.2; O2SAT 97
--- NOTE | 2024-01-16 07:38 | PM.PN ---
Progress Note: Subjective Subjective Interval history: This morning, patient denies nausea or vomiting, or diarrhea. Abdominal pain has improved. Patient is tolerating clears and states she was hungry last night.She is being treated for C Diff colitis. Lipase was elevated, worsened this morning. No fevers, chest pain, coughing. Discussed rechecking CT abdomen/pancreatic protocol today due to worsening labs. patient is in agreement to proceed Exam Narrative Exam Narrative: General: Patient is alert, and oriented to person, place and time with normal affect, proper hygiene Skin: no visible rashes, or ulcers Head: atraumatic, acephalic Heart: Normal rate and rhythm, no murmurs/rubs/gallops Lungs: no audible wheezes, crackles and normal breath sounds all lung quan Abdomen: Normal audible bowel sounds, mild distension, No palpable masses, no organomegaly, no rebound/guarding/ or rigidity Musculoskeletal: no swelling bilateral lower extremities, severe scoliosis Neuro: CN II-X grossly intact Constitutional Vital Signs, click to edit/add: Last Vital Signs Temp 97.2 F L 01/16/24 06:00 Pulse 72 01/16/24 06:00 Resp 16 01/16/24 06:00 BP 122/68 01/16/24 06:00 Pulse Ox 97 01/16/24 06:00 O2 Del Method Room Air 01/16/24 06:00 Progress Note: Objective Labs Labs: Short CBC 01/16/24 Range/Units 04:31 WBC 14.5 H (4.0-11.0) 10^3/uL Hgb 9.3 L (12.0-16.0) g/dL Hct 30.4 L (36.0-48.0) % Plt Count 275 (150-450) 10^3/uL BMP 01/16/24 04:31 Sodium 136 Potassium 3.8 Chloride 102 Carbon Dioxide 26.6 BUN 4.0 L Creatinine 0.61 Glucose 79 Calcium 7.8 L Liver Function 01/16/24 Range/Units 04:31 Total Bilirubin 0.4 (0.2-1.0) mg/dL AST 8 L (15-37) U/L ALT 11 L (14-59) U/L Alkaline Phosphatase 40 L (46-116) U/L Albumin 2.6 L (3.4-5.0) g/dL Progress Note: A&P Assessment and Plan (1) Acute pancreatitis: Assessment and Plan: Lipase 240, up to 516, WBC's 12.2 up 14.5. Stopped flagyl and also dexamethasone, symptoms improving however. monitor LFT s (normal) and lipase daily, advance diet to clears. Pain control. Ultrasound of RUQ showed poorly visualized pancreas. I also reviewed CT from 01/10/24 which showed normal pancreas, suspected colitis, stool was positive for C.Diff; repeat imaging (CT abdomen) today Qualifiers: Acute pancreatitis complication: unspecified Pancreatitis type: drug induced Qualified Code(s): K85.30 - Drug induced acute pancreatitis without necrosis or infection (2) Clostridium difficile colitis: Assessment and Plan: continue oral vancomycin (3) Hypokalemia: Assessment and Plan: replace orally with Klorcon 20MEQ BID (4) Depression: Assessment and Plan: continue escitalopram Qualifiers: Depression Type: unspecified Qualified Code(s): F32.A - Depression, unspecified Plan patient is a full code continue Lovenox for DVT prophylaxis due to worsening status, patient expected to stay 1-2 more days for medically necessary hospital care.
--- NOTE | 2024-01-16 07:59 | CT_ITS ---
The [address] [address] Patient Name: KELLI LAKE MRN: [id number] date: 1975 Sex: F Assigned Patient Location: Current Patient Location: Accession/Order Number: [id number] Exam Date: 01/16/2024 09:32 Report Date: 01/16/2024 12:05 At the request of: DANAE DYSON Procedure: CT abdomen wo/w con EXAMINATION: CT abdomen wo/w con REASON FOR EXAM: acute pancreatitis/pancreatic protocol please COMPARISON: 01/10/2024 TECHNIQUE: Scanning performed prior to and following 97 mL IV Omnipaque 350. FINDINGS: Lung bases: No nodule, infiltrate or pleural effusion. Abdominal findings: Pancreas enhances normally. No pancreatic ductal dilatation or pancreatic duct stone. No surrounding inflammation. The spleen is normal. Portal vein and splenic vein are patent. No mass in the liver. No gallbladder distention. Stable appearance of adrenal glands. Nephrograms symmetric without hydronephrosis. The colon is fluid distended. The entire colon is not included in the imaged volume but there is thickening of the wall of the descending colon with some surrounding subtle fat stranding suggesting colitis with probable ileus. No free peritoneal gas. There is some ascites in the pelvis which is not present to the same degree on the prior study. Aorta has normal caliber. The IVC has normal caliber. The superior mesenteric artery, celiac trunk and YEIMI are patent. A portion of the appendix is visualized within the ascites in the pelvis and appears normal in caliber. CT/CT abdomen wo/w con IMPRESSION: 1. No imaging evidence of pancreatitis. 2. There is fluid and gas distention of the colon suggesting ileus. There is some abnormal thickening of the descending colon and the visualized portion of the proximal sigmoid colon suggesting colitis. 3. Developing ascites in the pelvis partially imaged on this study of the abdomen. Electronically authenticated by: CHERRY TAVARES Date: 01/16/2024 12:05
[2024-01-16] MEDS: ENOXAPARIN SODIUM 40 MG/0.4 ML SYRINGE SUBQ (08:17)
[2024-01-16] MEDS: POTASSIUM CHLORIDE 10 MEQ ER TABLET 20 MEQ PO ×2 (08:17→21:33)
[2024-01-16] MEDS: ESCITALOPRAM 10 MG TABLET 5 MG PO (08:17)
[2024-01-16 13:13] LABS: Chol HDL Ratio 3.4; Cholesterol 154 mg/dL (<=200); HDL Cholesterol 45 mg/dL (40-60); LDL Cholesterol Calculated 94.6 mg/dL; Triglycerides 72 mg/dL (<=150); VLDL CHOLESTEROL 14.4 mg/dL
[2024-01-16 13:15] LABS: Lactate/Lactic Acid 0.7 mmol/L (0.4-2.0)
[2024-01-16 13:34] VITALS: BP 122/75; PULSE 58; TEMP 36.8; O2SAT 98
[2024-01-16 20:39] VITALS: BP 117/71; PULSE 56; TEMP 36.9; O2SAT 95
[2024-01-17] MEDS: VANCOMYCIN HCL 7,500 MG/150 ML BOTTLE 125 MG PO ×5 (00:07→23:36)
[2024-01-17] MEDS: LACTATED RINGER'S SOLUTION 1,000 ML 125 ML IV ×3 (00:55→16:52)
[2024-01-17 05:15] VITALS: BP 133/77; PULSE 68; TEMP 36.8; O2SAT 97
[2024-01-17 05:40] LABS: Basophils Percent Auto 0.3 % (0.2-2.0); Eosinophils Absolute Auto 0.1 10^3/uL (0.0-0.7); Eosinophils Percent Auto 0.8 % (0.9-7.0); Hematocrit 29.7 % (36.0-48.0); Hemoglobin 9.2 g/dL (12.0-16.0); Immature Granulocytes Abs Auto 0.03 10^3/uL (0.00-0.03); Immature Granulocytes Pct Auto 0.3 % (0.0-0.5); Lymphocytes Absolute Auto 1.9 10^3/uL (1.2-3.8); Lymphocytes Percent Auto 18.1 % (20.5-60.0); Mean Corpuscular Hemoglobin 24.5 pg (26.7-34.0); Mean Platelet Volume 10.7 fL (9.5-13.5); Monocytes Absolute Auto 0.8 10^3/uL (0.3-0.8); Monocytes Percent Auto 7.3 % (1.7-12.0); Neutrophils Absolute Auto 7.5 10^3/uL (1.4-6.5); Neutrophils Percent Auto 73.2 % (43.0-75.0); Platelet Count 302 10^3/uL (150-450); Red Blood Count 3.76 10^6/uL (4.20-5.40); Red Cell Distribution Width 18.9 % (11.0-15.0); White Blood Count 10.3 10^3/uL (4.0-11.0)
[2024-01-17 05:55] LABS: Alanine Aminotransferase 11 U/L (14-59); Albumin Globulin Ratio 0.8; Albumin Level 2.7 g/dL (3.4-5.0); Alkaline Phosphatase 45 U/L (46-116); Anion Gap 10.7; Aspartate Amino Transferase 7 U/L (15-37); BUN Creatinine Ratio 2.9; Bilirubin Total 0.5 mg/dL (0.2-1.0); Carbon Dioxide 27.3 mmol/L (21.0-32.0); Chloride 103 mmol/L (98-107); Estimated GFR (African America >60 (>=60); Estimated GFR (Non-African Ame >60 (>=60); Globulin 3.3 g/dL; Glucose 68 mg/dL (74-106); Sodium 137 mmol/L (136-145)
--- NOTE | 2024-01-17 06:18 | PM.GSCN ---
History of Present Illness Consult details Consult date: 01/17/24 Requesting physician: Joyce Frederick Narrative: Alva Shaw is a 48-year-old female who presented to the [facility] for third time within the past month with complaints of abdominal pain and a diagnosis of C. difficile enterocolitis. She now has pancreatitis for which I have been consulted. Her serum lipase was elevated in the 500s yesterday and is down to 240's today. She states that she has been having abdominal pain described as sharp in nature continuous until relieved by narcotics. This has been ongoing off and on since earlier this month. She had a tooth pulled by her dentist and early December who had placed her on antibiotics. She then presented to the ED and was placed on Cipro and Flagyl and spent 2 days in the hospital. She then represented to the ED for more intravenous antibiotics and was sent home a few days later. She completed all the antibiotics and felt fine 1 week later. Last she presented to the ED again with anorexia and abdominal pain it was so bad that she could not hold down any water. She had diarrhea yesterday. She had 3-4 liquid bowel movements yesterday. She is currently on vancomycin orally. She had been placed on Vanco plus Flagyl and that has been since discontinued the Flagyl. She is passing flatus. Ultrasound of gallbladder shows no inflammation or cholecystitis or cholelithiasis and CT scan of abdomen and pelvis only show descending colon wall thickening consistent with colitis and possible ileus. She also consumes edible Gummies with THC 2 times a week. She has lost about 20 pounds according to her primary care provider Cande Hart CNP. She denies any melena hematochezia, family history of colon cancer or any inflammatory bowel disease. She has never had a colonoscopy. She is currently unemployed. Denies tobacco or alcohol use. She has a known history of scoliosis and has back pain from lying in bed. This is chronic in nature Review of Systems ROS Status of ROS 10 or more systems reviewed and unremarkable except as noted in history and below [facility] Medical History (Updated 01/17/24 @ 07:48 by Addy Aleman MD) Intractable nausea and vomiting ?R11.2 - Nausea with vomiting, unspecified (ICD-10) Intractable abdominal pain ?R10.9 - Unspecified abdominal pain (ICD-10) Depression ?F32.A - Depression, unspecified (ICD-10) Colitis ?K52.9 - Noninfective gastroenteritis and colitis, unspecified (ICD-10) Acute proctitis ?K62.89 - Other specified diseases of anus and rectum (ICD-10) 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 of left artificial elbow joint (ICD-10) Scoliosis ?M41.9 - Scoliosis, unspecified (ICD-10) Surgical History Previous back surgery ?Z98.890 - Other specified postprocedural states (ICD-10) Family History Mother Family history of CHF (congestive heart failure) Family history of cancer Family history of hypertension Family history of myocardial infarction Family history of stroke Father Family history of cancer Social History Within the past year, how often did you have a drink containing alcohol: monthly or less Within the past year, how often did you have six or more drinks on one occasion: less than monthly Smoking status: Former smoker Non-prescribed substance use: cannabis (any form) Previous occupational history: Does not Work Known occupational exposures/hazards: No Highest level of school completed/degree received: some college, no degree Do you want help with school or training: No Are you now , , , , never or living with a partner: never In a typical week, how many times do you talk on the telephone with family, friends, or neighbors: 3 or more times per week How often do you get together with friends or relatives: 3 or more times per week How often do you attend adventism or hinduism services: never Do you belong to any clubs or organizations such as adventism groups unions, fraternal or athletic groups, or school groups: no Total score: 1 Score interpretation: A score of less than or equal to 1 indicates the most socially isolated. Little interest or pleasure in doing things: not at all Feeling down, depressed, or hopeless: not at all Feel stressed/tense/nervous/anxious/difficulty sleeping: not at all Due to disability, difficulty making decisions: No Do you think of yourself as: straight/heterosexual Gender Identity: female Meds Home Medications and Allergies Home Medications ?Medication ?Instructions ?Recorded ?Confirmed ?Type escitalopram oxalate 5 mg tablet 5 mg PO DAILY 12/24/23 01/14/24 History hyoscyamine sulfate 0.125 mg 0.125 mg PO Q8H PRN dyspepsia #30 12/25/23 01/14/24 Rx sublingual tablet (Levsin/SL) tabs ondansetron HCl 4 mg tablet 4 mg PO Q8H PRN nausea and 12/25/23 01/14/24 Rx vomiting 4 days #10 tabs hydrocodone 5 mg-acetaminophen 325 1 tab PO Q6H PRN pain 5 days #20 12/27/23 01/14/24 Rx mg tablet tabs ondansetron 4 mg disintegrating 4 mg PO Q6H PRN nausea and 12/27/23 01/14/24 Rx tablet vomiting #20 tabs metronidazole 500 mg tablet 500 mg PO Q8H #45 tabs 01/12/24 01/14/24 Rx prednisone 10 mg tablet 40 mg (4 x 10 mg) PO DAILY #32 tabs 01/12/24 01/14/24 Rx vancomycin 125 mg capsule 125 mg PO Q6H 10 days #40 caps 01/13/24 01/14/24 Rx Allergies Allergy/AdvReac Type Severity Reaction Status Date / Time No Known Drug Allergies Allergy Verified 12/27/23 07:54 Exam Constitutional Vital Signs, click to edit/add: Last Vital Signs Temp 98.3 F 01/17/24 05:15 Pulse 68 01/17/24 05:15 Resp 18 01/17/24 05:15 BP 133/77 01/17/24 05:15 Pulse Ox 97 01/17/24 05:15 O2 Del Method Room Air 01/17/24 05:15 Documenting provider has reviewed patient's vital signs: yes Common normals: no apparent distress, average body habitus, oriented x3, no limitations, healthy appearing, alert and well nourished GI Common normals: Normal to inspection, nondistended, normoactive bowel sounds present, soft to palpation, non-tender, no hepatosplenomegaly and no masses Neuro Common normals: oriented x3, CN's II-XII intact bilaterally, moves all extremities, no focal motor deficits and no sensory deficits noted Results Labs Labs: Abnormal lab results 01/17/24 Range/Units 04:29 RBC 3.76 L (4.20-5.40) 10^6/uL Hgb 9.2 L (12.0-16.0) g/dL Hct 29.7 L (36.0-48.0) % MCV 79.0 L (81.0-99.0) fL MCH 24.5 L (26.7-34.0) pg RDW 18.9 H (11.0-15.0) % Lymph % (Auto) 18.1 L (20.5-60.0) % Eos % (Auto) 0.8 L (0.9-7.0) % Neut # (Auto) 7.5 H (1.4-6.5) 10^3/uL BUN 2.0 L (7.0-18.0) mg/dL Glucose 68 L (74-106) mg/dL Calcium 8.0 L (8.5-10.1) mg/dL AST 7 L (15-37) U/L ALT 11 L (14-59) U/L Alkaline Phosphatase 45 L (46-116) U/L Total Protein 6.0 L (6.4-8.2) g/dL Albumin 2.7 L (3.4-5.0) g/dL Lipase 293.0 H (16.0-77.0) U/L Diabetes panel 01/16/24 01/17/24 Range/Units 04:31 04:29 Sodium 137 (136-145) mmol/L Potassium 4.0 (3.5-5.1) mmol/L Chloride 103 (98-107) mmol/L Carbon Dioxide 27.3 (21.0-32.0) mmol/L BUN 2.0 L (7.0-18.0) mg/dL Creatinine 0.69 (0.55-1.02) mg/dL Glucose 68 L (74-106) mg/dL Calcium 8.0 L (8.5-10.1) mg/dL AST 7 L (15-37) U/L ALT 11 L (14-59) U/L Alkaline Phosphatase 45 L (46-116) U/L Total Protein 6.0 L (6.4-8.2) g/dL Albumin 2.7 L (3.4-5.0) g/dL Triglycerides 72 (<=150) mg/dL HDL Cholesterol 45 (40-60) mg/dL Calcium panel 01/17/24 Range/Units 04:29 Calcium 8.0 L (8.5-10.1) mg/dL Albumin 2.7 L (3.4-5.0) g/dL Pituitary panel 01/17/24 Range/Units 04:29 Sodium 137 (136-145) mmol/L Potassium 4.0 (3.5-5.1) mmol/L Chloride 103 (98-107) mmol/L Carbon Dioxide 27.3 (21.0-32.0) mmol/L BUN 2.0 L (7.0-18.0) mg/dL Creatinine 0.69 (0.55-1.02) mg/dL Glucose 68 L (74-106) mg/dL Calcium 8.0 L (8.5-10.1) mg/dL Adrenal panel 01/17/24 Range/Units 04:29 Sodium 137 (136-145) mmol/L Potassium 4.0 (3.5-5.1) mmol/L Chloride 103 (98-107) mmol/L Carbon Dioxide 27.3 (21.0-32.0) mmol/L BUN 2.0 L (7.0-18.0) mg/dL Creatinine 0.69 (0.55-1.02) mg/dL Glucose 68 L (74-106) mg/dL Calcium 8.0 L (8.5-10.1) mg/dL Total Bilirubin 0.5 (0.2-1.0) mg/dL AST 7 L (15-37) U/L ALT 11 L (14-59) U/L Alkaline Phosphatase 45 L (46-116) U/L Total Protein 6.0 L (6.4-8.2) g/dL Albumin 2.7 L (3.4-5.0) g/dL All other labs normal. Assessment and Plan Assessment and Plan (1) Acute pancreatitis: Qualifiers: Acute pancreatitis complication: unspecified Pancreatitis type: drug induced Qualified Code(s): K85.30 - Drug induced acute pancreatitis without necrosis or infection (2) Clostridium difficile colitis: (3) Hypokalemia: (4) Depression: Qualifiers: Depression Type: unspecified Qualified Code(s): F32.A - Depression, unspecified (5) Ileus due to infection: Plan Reviewed etiology of pancreatitis; patient has no evidence of cholecystitis or cholelithiasis, no evidence of alcohol abuse, no thiazide diuretic use, no hyperlipidemia therefore most likely she has idiopathic pancreatitis. As far as the C. difficile enterocolitis her mother lives with her at home and is in her 80s and has had colitis as well. Patient could have a resistant case of C. difficile enterocolitis and if it does not respond to the oral vancomycin for 10 to 14 days I would recommend GI consultation for possible fecal transplant if needed. Would recommend supportive care but there is nothing surgical at this point. Will sign off unless something else is needed. Recommend GI consult if C. difficile does not respond to oral vancomycin. Continue to keep n.p.o. and follow lipase until resolves.
--- NOTE | 2024-01-17 08:38 | PM.PN ---
Progress Note: Subjective Subjective Interval history: This morning, patient denies nausea or vomiting, or diarrhea. Abdominal pain is absent. Patient is tolerating clears and states she was hungry last night and is happy to go to full liquid today.She is being treated for C Diff colitis. Lipase was elevated, worsened yesterday. No fevers, chest pain, coughing. rechecked CT abdomen/pancreatic protocol which showed colitis, possible ileus but no acute pancreatic signs. I also stopped steroids yesterday. Lipase much better today 293. Dr. Aleman also came to evaluate patient and agreed with current plan of care as supportive. Exam Narrative Exam Narrative: General: Patient is alert, and oriented to person, place and time with normal affect, proper hygiene, she is walking around the room, in no acute distress Skin: no visible rashes, or ulcers Head: atraumatic, acephalic Heart: Normal rate and rhythm, no murmurs/rubs/gallops Lungs: no audible wheezes, crackles and normal breath sounds all lung quan Abdomen: Normal audible bowel sounds, mild distension, No palpable masses, no organomegaly, no rebound/guarding/ or rigidity Musculoskeletal: no swelling bilateral lower extremities, severe scoliosis Neuro: CN II-X grossly intact Constitutional Vital Signs, click to edit/add: Last Vital Signs Temp 98.3 F 01/17/24 05:15 Pulse 68 01/17/24 05:15 Resp 18 01/17/24 05:15 BP 133/77 01/17/24 05:15 Pulse Ox 97 01/17/24 05:15 O2 Del Method Room Air 01/17/24 05:15 Progress Note: Objective Labs Labs: Short CBC 01/17/24 Range/Units 04:29 WBC 10.3 (4.0-11.0) 10^3/uL Hgb 9.2 L (12.0-16.0) g/dL Hct 29.7 L (36.0-48.0) % Plt Count 302 (150-450) 10^3/uL BMP 01/17/24 04:29 Sodium 137 Potassium 4.0 Chloride 103 Carbon Dioxide 27.3 BUN 2.0 L Creatinine 0.69 Glucose 68 L Calcium 8.0 L Liver Function 01/17/24 Range/Units 04:29 Total Bilirubin 0.5 (0.2-1.0) mg/dL AST 7 L (15-37) U/L ALT 11 L (14-59) U/L Alkaline Phosphatase 45 L (46-116) U/L Albumin 2.7 L (3.4-5.0) g/dL Progress Note: A&P Assessment and Plan (1) Acute pancreatitis: Assessment and Plan: advance diet to full liquid, improvement in lipase, symptoms have resolved/improved. labs also improving, LFT s still normal, WBC's normal range. Hopeful discharge home tomorrow if continued improvement occurs. Qualifiers: Acute pancreatitis complication: unspecified Pancreatitis type: drug induced Qualified Code(s): K85.30 - Drug induced acute pancreatitis without necrosis or infection (2) Clostridium difficile colitis: Assessment and Plan: continue oral vancomycin (3) Hypokalemia: Assessment and Plan: replace orally with Klorcon 20MEQ BID (4) Depression: Assessment and Plan: continue escitalopram Qualifiers: Depression Type: unspecified Qualified Code(s): F32.A - Depression, unspecified (5) Ileus due to infection: Assessment and Plan: monitor. Plan patient is a full code continue Lovenox for DVT prophylaxis
[2024-01-17] MEDS: POTASSIUM CHLORIDE 10 MEQ ER TABLET 20 MEQ PO ×2 (08:48→21:05)
[2024-01-17] MEDS: ENOXAPARIN SODIUM 40 MG/0.4 ML SYRINGE SUBQ (08:48)
[2024-01-17] MEDS: ESCITALOPRAM 10 MG TABLET 5 MG PO (08:48)
[2024-01-17 14:00] VITALS: BP 105/60; PULSE 68; TEMP 36.8; O2SAT 98
[2024-01-17 20:34] VITALS: BP 107/68; PULSE 68; TEMP 37.3; O2SAT 97
[2024-01-18] MEDS: LACTATED RINGER'S SOLUTION 1,000 ML 125 ML IV ×3 (00:20→16:57)
[2024-01-18 05:16] LABS: Basophils Percent Auto 0.4 % (0.2-2.0); Eosinophils Absolute Auto 0.1 10^3/uL (0.0-0.7); Eosinophils Percent Auto 1.2 % (0.9-7.0); Hematocrit 31.2 % (36.0-48.0); Hemoglobin 9.7 g/dL (12.0-16.0); Immature Granulocytes Abs Auto 0.04 10^3/uL (0.00-0.03); Immature Granulocytes Pct Auto 0.4 % (0.0-0.5); Lymphocytes Absolute Auto 1.7 10^3/uL (1.2-3.8); Lymphocytes Percent Auto 17.3 % (20.5-60.0); Mean Corpuscular HGB Conc 31.1 g/dL (29.9-35.2); Mean Corpuscular Hemoglobin 24.6 pg (26.7-34.0); Mean Corpuscular Volume 79.2 fL (81.0-99.0); Mean Platelet Volume 10.4 fL (9.5-13.5); Monocytes Absolute Auto 0.8 10^3/uL (0.3-0.8); Monocytes Percent Auto 8.1 % (1.7-12.0); Neutrophils Percent Auto 72.6 % (43.0-75.0); Platelet Count 283 10^3/uL (150-450); Red Blood Count 3.94 10^6/uL (4.20-5.40); Red Cell Distribution Width 18.8 % (11.0-15.0); White Blood Count 9.7 10^3/uL (4.0-11.0)
[2024-01-18 05:20] VITALS: BP 116/73; PULSE 57; TEMP 36.7; O2SAT 96
[2024-01-18] MEDS: VANCOMYCIN HCL 7,500 MG/150 ML BOTTLE 125 MG PO ×4 (05:31→23:07)
[2024-01-18 05:34] LABS: Alanine Aminotransferase 12 U/L (14-59); Albumin Globulin Ratio 0.8; Albumin Level 2.6 g/dL (3.4-5.0); Alkaline Phosphatase 44 U/L (46-116); Anion Gap 10.3; Aspartate Amino Transferase 9 U/L (15-37); BUN Creatinine Ratio 1.6; Bilirubin Total 0.4 mg/dL (0.2-1.0); Blood Urea Nitrogen <1.0 mg/dL (7.0-18.0); Carbon Dioxide 26.8 mmol/L (21.0-32.0); Chloride 104 mmol/L (98-107); Estimated GFR (African America >60 (>=60); Estimated GFR (Non-African Ame >60 (>=60); Globulin 3.4 g/dL; Glucose 84 mg/dL (74-106); Potassium 4.1 mmol/L (3.5-5.1); Sodium 137 mmol/L (136-145)
[2024-01-18 08:22] LABS: Amylase 151 U/L (25-115)
[2024-01-18] MEDS: POTASSIUM CHLORIDE 10 MEQ ER TABLET 20 MEQ PO ×2 (08:43→20:47)
[2024-01-18] MEDS: ENOXAPARIN SODIUM 40 MG/0.4 ML SYRINGE SUBQ (08:43)
[2024-01-18] MEDS: ESCITALOPRAM 10 MG TABLET 5 MG PO (08:44)
[2024-01-18] MEDS: HYOSCYAMINE SULFATE 0.125 MG TAB.SUBL PO (09:23)
--- NOTE | 2024-01-18 11:26 | CM.NOTE ---
Rounds made with Dr. Frederick, pt having nausea and abdominal pain this AM. Dr. Frederick will discuss plan of care with RUBINA Calle. Possible discharge to home this afternoon if able to take P.O.
[2024-01-18] MEDS: HYDROCODONE/ACET 5-325 MG TABLET 1 TAB PO ×2 (12:15→23:06)
[2024-01-18 14:39] VITALS: BP 124/76; PULSE 66; TEMP 36.7; O2SAT 97
--- NOTE | 2024-01-18 14:54 | P.PN_ITS ---
<Statement entered by Joyce Frederick, - 01/18/24 15:52> This documentation has been reviewed and approved. Nausea/pain started today after being fine all weekend. agree with advancing diet slowly. Spray for pain today. Patient will require another night stay Progress Note: Subjective Subjective Interval history: 01/18/24 0900 The pt reports one episode of diarrhea overnight w/ some associated nausea, but denies abdominal pain at this time. She felt she may have over done it by e ating a lot of dairy products yesterday. We will continue a full liquid diet this morning and attempt to advance to a soft diet at noon. Her lipase/amylase april slightly overnight after dropping yesterday. Her epigastric and RUQ areas are mildly tender to palpation but she is without pain at rest. Possible discharge later today pending clinical course. ADDENDUM 1115: The pt reported worsening pain prior to eating a full liquid breakfast. Her home norco were prescribed at her request. We will go slowly with advancing her diet and likely d/c in the AM and continue to monitor her pancreatic enzymes. Exam Constitutional Vital Signs, click to edit/add: Last Vital Signs Temp 98.1 F 01/18/24 14:39 Pulse 66 01/18/24 14:39 Resp 16 01/18/24 14:39 BP 124/76 01/18/24 14:39 Pulse Ox 97 01/18/24 14:39 O2 Del Method Room Air 01/18/24 14:39 Common normals: no apparent distress, oriented x3 and alert General appearance: cooperative Orientation/consciousness: Yes awake HENNM Common normals: normocephalic, head/scalp atraumatic and hearing grossly normal bilaterally Eye Common normals: PERRL, EOMs intact bilaterally, conjunctivae normal and no scleral icterus General eye: normal appearance of both eyes Chest Common normals: inspection of chest normal Chest: symmetrical chest wall rise Respiratory Common normals: normal respiratory effort, no use of accessory muscles and clear to auscultation bilaterally Effort & inspection: able to speak in complete sentences Cardio Common normals: regular rate, regular rhythm, S1 normal heart sound, S2 normal heart sound, no murmurs and peripheral pulses 2+ throughout GI Common normals: Normal to inspection, nondistended, normoactive bowel sounds present, soft to palpation and no hepatosplenomegaly Palpation: tender (RUQ, epigastric - mild); no guarding and no rebound tenderness present Bladder/kidney exam: bladder normal to palpation Extremity Common normals: normal to inspection and no calf tenderness General: edema (Tr bilat insteps); no clubbing and no cyanosis Neuro Common normals: CN's II-XII intact bilaterally, moves all extremities, no focal motor deficits and no sensory deficits noted Psych Common normals: mental status grossly normal Progress Note: Objective Labs Labs: Short CBC 01/18/24 Range/Units 04:57 WBC 9.7 (4.0-11.0) 10^3/uL Hgb 9.7 L (12.0-16.0) g/dL Hct 31.2 L (36.0-48.0) % Plt Count 283 (150-450) 10^3/uL BMP 01/18/24 04:57 Sodium 137 Potassium 4.1 Chloride 104 Carbon Dioxide 26.8 BUN <1.0 L Creatinine 0.64 Glucose 84 Calcium 8.0 L Liver Function 01/18/24 Range/Units 04:57 Total Bilirubin 0.4 (0.2-1.0) mg/dL AST 9 L (15-37) U/L ALT 12 L (14-59) U/L Alkaline Phosphatase 44 L (46-116) U/L Albumin 2.6 L (3.4-5.0) g/dL Progress Note: A&P Assessment and Plan (1) Acute pancreatitis: Assessment and Plan: Acute * Slowly improving * Pancreatic enzymes waxing and waning * slightly worse today from yesterday but improved from peak on 01/16/24 * Continue full liquid diet * advance diet slowly over the next 24 hrs * IVFs at 125/hr * Daily lipase and amylase, CBC, CMP Qualifiers: Pancreatitis type: drug induced Acute pancreatitis complication: unspecified Qualified Code(s): K85.30 - Drug induced acute pancreatitis without necrosis or infection (2) Clostridium difficile colitis: Assessment and Plan: Subacute * Continue PO Vancomycin * Steroid discontinued (3) Ileus due to infection: Assessment and Plan: Acute * Monitor - Pt is having BMs * Continue home Levsin & Zofran * Continue supportive care per Dr Aleman, general surgeon, recommendations (4) Hypokalemia: Assessment and Plan: Acute * Continue Klorcon BID * Resolved (5) Depression: Assessment and Plan: Chronic * Continue home Lexapro Qualifiers: Depression Type: unspecified Qualified Code(s): F32.A - Depression, unspecified
[2024-01-18] MEDS: ONDANSETRON PF 4 MG/2 ML VIAL IV ×2 (17:28→23:06)
[2024-01-18] MEDS: MORPHINE SULFATE 2 MG/ML SYRINGE IV (17:28)
[2024-01-18 19:17] VITALS: BP 140/81; PULSE 68; TEMP 36.7; O2SAT 98
[2024-01-18 23:03] VITALS: BP 141/81; PULSE 78; TEMP 36.7; O2SAT 98
[2024-01-19] MEDS: MORPHINE SULFATE 2 MG/ML SYRINGE IV (00:07)
[2024-01-19] MEDS: LACTATED RINGER'S SOLUTION 1,000 ML 125 ML IV ×2 (00:08→07:37)
[2024-01-19 03:25] VITALS: BP 114/64; PULSE 64; TEMP 36.8; O2SAT 97
[2024-01-19 04:56] LABS: Basophils Percent Auto 0.3 % (0.2-2.0); Eosinophils Absolute Auto 0.1 10^3/uL (0.0-0.7); Eosinophils Percent Auto 0.7 % (0.9-7.0); Hematocrit 32.2 % (36.0-48.0); Hemoglobin 10.2 g/dL (12.0-16.0); Immature Granulocytes Abs Auto 0.04 10^3/uL (0.00-0.03); Immature Granulocytes Pct Auto 0.4 % (0.0-0.5); Lymphocytes Absolute Auto 1.7 10^3/uL (1.2-3.8); Lymphocytes Percent Auto 16.2 % (20.5-60.0); Mean Corpuscular HGB Conc 31.7 g/dL (29.9-35.2); Mean Corpuscular Hemoglobin 24.6 pg (26.7-34.0); Mean Corpuscular Volume 77.6 fL (81.0-99.0); Mean Platelet Volume 10.4 fL (9.5-13.5); Monocytes Absolute Auto 0.8 10^3/uL (0.3-0.8); Monocytes Percent Auto 7.1 % (1.7-12.0); Neutrophils Absolute Auto 8.1 10^3/uL (1.4-6.5); Neutrophils Percent Auto 75.3 % (43.0-75.0); Platelet Count 325 10^3/uL (150-450); Red Blood Count 4.15 10^6/uL (4.20-5.40); Red Cell Distribution Width 18.3 % (11.0-15.0); White Blood Count 10.7 10^3/uL (4.0-11.0)
[2024-01-19 05:37] LABS: Alanine Aminotransferase 11 U/L (14-59); Albumin Globulin Ratio 0.8; Albumin Level 2.9 g/dL (3.4-5.0); Alkaline Phosphatase 46 U/L (46-116); Amylase 99 U/L (25-115); Anion Gap 10.2; Aspartate Amino Transferase 8 U/L (15-37); BUN Creatinine Ratio 3.3; Bilirubin Total 0.5 mg/dL (0.2-1.0); Calcium 8.1 mg/dL (8.5-10.1); Carbon Dioxide 27.7 mmol/L (21.0-32.0); Chloride 98 mmol/L (98-107); Estimated GFR (African America >60 (>=60); Estimated GFR (Non-African Ame >60 (>=60); Globulin 3.5 g/dL; Glucose 88 mg/dL (74-106); Potassium 3.9 mmol/L (3.5-5.1); Sodium 132 mmol/L (136-145); Total Protein 6.4 g/dL (6.4-8.2)
[2024-01-19] MEDS: VANCOMYCIN HCL 7,500 MG/150 ML BOTTLE 125 MG PO (06:12)
[2024-01-19] MEDS: ESCITALOPRAM 10 MG TABLET 5 MG PO (08:02)
[2024-01-19] MEDS: POTASSIUM CHLORIDE 10 MEQ ER TABLET 20 MEQ PO (08:02)
[2024-01-19] MEDS: ENOXAPARIN SODIUM 40 MG/0.4 ML SYRINGE SUBQ (08:02)
--- NOTE | 2024-01-19 08:52 | P.DS_ITS ---
<Statement entered by Joyce Frederick DO - 01/19/24 11:24> This documentation has been reviewed and approved. I agree with the above discharge plan. Return to the ER with any worsening signs or symptoms, close follow up with PCP. DS: Providers Provider Date of admission: 01/14/24 16:05 Primary care physician: ANDREW RAND Consults: 01/16/24 12:11 Consult to General Surgeon Routine Consulting Provider: Addy Aleman Reason for consultation: pancreatitis, colitis, ileus Has provider been notified: Yes Discharging clinician: Alva Garza DS: Diagnosis Discharge Diagnosis (1) Acute pancreatitis: Qualifiers: Acute pancreatitis complication: unspecified Pancreatitis type: drug induced Qualified Code(s): K85.30 - Drug induced acute pancreatitis without necrosis or infection (2) Clostridium difficile colitis: (3) Hypokalemia: (4) Ileus due to infection: (5) Depression: Qualifiers: Depression Type: unspecified Qualified Code(s): F32.A - Depression, unspecified DS: Summary Hospital Course Hospital Course: The patient was readmitted with pancreatitis after very recent discharge from an admission with C. difficile colitis. She was made n.p.o. and given high-volume IV fluids. A right upper quadrant ultrasound was unremarkable and the pancreas was partially obscured by bowel gas and was unable to give further information regarding her pancreatitis. A CT of the abdomen was obtained and this again did not show acute pancreatic changes consistent with an inflammatory process, but did note likely ileus. She was seen in consult by Dr. Jack, general surgeon, who recommended continued supportive care. Her diet was slowly increased from clears to full's to soft. Her pancreatic enzymes and symptoms waxed and waned over the next few days but by the time of discharge her pain and nausea had resolved. Her amylase is normal and lipase is nearly normal and significantly reduced from peak levels. She is being discharged home in stable condition. She is to continue taking Levsin and [place] as needed. Her steroid taper has been discontinued as we completed that during her second stay in the hospital. She should continue taking her p.o. vancomycin until gone. Oral Flagyl has been discontinued d/t significant adverse effect of nausea/vomiting and vancomycin is adequate monotherapy for c-diff. We encouraged frequent, small, low-fat meals, plenty of oral fluid intake, and increased ambulation/activity. The patient should follow-up with her PCP within 5 to 7 days. Time Spent with Patient Time attestation: Total time spent providing and/or coordinating discharge services: Time spent: greater than 30 minutes Specific discharge activities: Physical exam, discussion of discharge plan, questions answered. Quality: Stroke Symptom Onset Unknown: No Exam Narrative Exam Narrative: Pt reports abdominal pain and nausea have resolved today Constitutional Vital Signs, click to edit/add: Last Vital Signs Temp 98.2 F 01/19/24 03:25 Pulse 64 01/19/24 03:25 Resp 16 01/19/24 03:25 BP 114/64 01/19/24 03:25 Pulse Ox 97 01/19/24 03:25 O2 Del Method Room Air 01/19/24 03:25 Common normals: no apparent distress, oriented x3 and alert General appearance: cooperative Orientation/consciousness: Yes awake HENMT Common normals: normocephalic and head/scalp atraumatic Eye Common normals: PERRL, EOMs intact bilaterally, conjunctivae normal and no scleral icterus Neck & C-Spine Common normals: no JVD Respiratory Common normals: normal respiratory effort, no use of accessory muscles and clear to auscultation bilaterally Effort & inspection: able to speak in complete sentences and symmetric chest movement Cardio Common normals: no JVD, regular rate, regular rhythm, S1 normal heart sound, S2 normal heart sound, no murmurs and peripheral pulses 2+ throughout GI Common normals: Normal to inspection, nondistended, normoactive bowel sounds present, soft to palpation and non-tender (Epigastric/RUQ tenderness resolved) Bladder/kidney exam: bladder normal to palpation Extremity Common normals: normal to inspection, full ROM, normal capillary refill and no pedal edema General: no clubbing and no cyanosis Neuro Common normals: moves all extremities, no focal motor deficits and no sensory deficits noted Speech: speech normal Psych Common normals: mental status grossly normal and activity/motor behavior normal DS: Data Data Completed and Pending Labs on day of discharge: Labs from last 24 hours 01/19/24 04:00 WBC 10.7 RBC 4.15 L Hgb 10.2 L Hct 32.2 L MCV 77.6 L MCH 24.6 L MCHC 31.7 RDW 18.3 H Plt Count 325 MPV 10.4 Neut % (Auto) 75.3 H Lymph % (Auto) 16.2 L [place] % (Auto) 7.1 Eos % (Auto) 0.7 L Baso % (Auto) 0.3 Neut # (Auto) 8.1 H Lymph # (Auto) 1.7 [place] # (Auto) 0.8 Eos # (Auto) 0.1 Baso # (Auto) 0.0 Abs Immat Gran (auto) 0.04 H Imm/Tot Granulo (auto) 0.4 Sodium 132 L Potassium 3.9 Chloride 98 Carbon Dioxide 27.7 Anion Gap 10.2 BUN 2.0 L Creatinine 0.61 Est GFR ( Amer) >60 Est GFR (Non-Af Amer) >60 BUN/Creatinine Ratio 3.3 Glucose 88 Calcium 8.1 L Total Bilirubin 0.5 AST 8 L ALT 11 L Alkaline Phosphatase 46 Total Protein 6.4 Albumin 2.9 L Globulin 3.5 Albumin/Globulin Ratio 0.8 Amylase [address] scan - abdomen: Radiologist's impression: IMPRESSION: 1. No imaging evidence of pancreatitis. 2. There is fluid and gas distention of the colon suggesting ileus. There is some abnormal thickening of the descending colon and the visualized portion of the proximal sigmoid colon suggesting colitis. 3. Developing ascites in the pelvis partially imaged on this study of the abdomen. US - abdomen: Radiologist's impression: IMPRESSION: The pancreas is poorly visualized due to obstruction by bowel gas. Questionable small ascites may be seen about the inferior border of the liver. If clinically indicated, follow-up CT imaging may be considered. Discharge Plan Discharge Disposition: Home, Self-Care Condition: Good Discharge Medications: Continued escitalopram oxalate 5 mg tablet 5 mg PO DAILY hyoscyamine sulfate [Levsin/SL] 0.125 mg tablet, sublingual 0.125 mg PO Q8H PRN (Reason: dyspepsia) Qty: 30 0RF ondansetron 4 mg tablet,disintegrating 4 mg PO Q6H PRN (Reason: nausea and vomiting) Qty: 20 0RF vancomycin 125 mg capsule 125 mg PO Q6H 10 Days Qty: 40 0RF hydrocodone-acetaminophen 5-325 mg tablet 1 tab PO Q6H PRN (Reason: pain) 5 Days Qty: 20 0RF Discontinued ondansetron HCl 4 mg tablet 4 mg PO Q8H PRN (Reason: nausea and vomiting) 4 Days Qty: 10 0RF metronidazole 500 mg tablet 500 mg PO Q8H Qty: 45 0RF prednisone 10 mg tablet 40 mg PO DAILY Qty: 32 0RF Rx Instructions: 4/day for 3 days, 3/day for 3 days, 2/day for 3 days, 1/day for 3 days, 1/2 /day for 4 days Print Language: [place] Patient Instructions: Pancreatitis (DC), C. Diff (Clostridioides Difficile) Infection (DC) Activity Restrictions/Additional Instructions: - Eat frequent, small, lower fat meals. Increase volume as tolerated. Increase protein intake throughout the day. - Drink plenty of fluid throughout the day - Ambulate frequently and continue to increase activity as tolerated Forms: Portal Instructions Follow Up Appointments: Follow up with Andrew Rand N.P. January 26 @ 2:40pm [phone]
--- NOTE | 2024-01-19 09:30 | CM.NOTE ---
Rounds made with Dr. Frederick, pt will discharge to home today. No discharge needs identified.
--- NOTE | 2024-01-20 14:42 | CM.DCFOLLOWU ---
1st attempt 01/20/24, no answer.
--- NOTE | 2024-01-21 13:27 | CM.DCFOLLOWU ---
Person spoke with: patient How are you feeling? well How is your pain? no pain, feeling much better and following the diet recommended Did you understand your discharge instructions? yes Do you have any questions about your discharge instructions? no Were you given any prescriptions at discharge? yes Were you able to get your prescriptions filled? yes Do you understand how to take your medications as ordered? yes Do you have any questions about your follow up appointment and do you plan to keep your follow up appointment? no questions, reviewed follow up with pt Is there anything else that you would like to discuss? no Questions/Comments/Concerns/Other: N/A
== END 2024-01-19 10:26 | disposition home or self-care (01) | DRG 282 ==
LOC: ER 15:01 → MS 16:06
PROVIDERS: Nurse Practitioner; Admitting Provider Family Medicine; Emergency Provider Emergency Medicine; PCP Nurse Practitioner Family; Visit Provider Family Medicine
DX: K85.30 Drug induced acute pancreatitis without necrosis or infection (principal); A04.72 Enterocolitis due to Clostridium difficile, not specified as recurrent; T50.905A Adverse effect of unspecified drugs, medicaments and biological substances, initial encounter; E87.6 Hypokalemia; F32.A Depression, unspecified; K56.7 Ileus, unspecified; D64.9 Anemia, unspecified; M41.9 Scoliosis, unspecified; Z87.891 Personal history of nicotine dependence; Z96.622 Presence of left artificial elbow joint; Z79.899 Other long term (current) drug therapy
CPT/HCPCS: 36415; 74170; 76705; 80048; 80053; 80061; 80076; 82150; 83605; 83690; 85025; 93005; 96361; 96372; 96374; 96375; 96376; 99285; Q9967

== ENCOUNTER 2024-02-03 19:55 | Emergency (ER) | payer OTHER, SELFPAY ==
[2024-02-03 20:04] VITALS: BP 132/82; PULSE 75; TEMP 36.7; O2SAT 99
--- OUTSIDE RECORDS SUMMARY | 2024-02-03 20:05 | XMS_ITS | CCD ---
Author Organization [facility] Inform ion Partnership [facility] Care Team Providers Care Obiee Lead Developer Name Role Phone PANCHITO JUAREZ Admitting Unavailable PANCHITO JUAREZ Attending Unavailable LEONEL GARCIA Primary Care Unavailable PANCHITO JUAREZ Consulting Unavailable CLARK THOMAS Consulting Unavailable KAYLIN WEBSTER Consulting Unavailable ANDREW JUAREZ Referring Unavailable ANDREW JUAREZ Primary Care Unavailable ANDREW JUAREZ Attending Unavailable ANDREW JUAREZ Referring Unavailable ANDREW JUAREZ Primary Care Unavailable ANDREW JUAREZ Attending Unavailable ANDREW JUAREZ Referring Unavailable ANDREW JUAREZ Primary Care Unavailable Allergies Allergy Classification Reported Allergen(s) Allergy Type Date of Onset Reaction(s) Facility (1 source) metroNIDAZOLE; Translations: [METRONIDAZOLE] Drug Allergy 01-27-2024 [facility] Repository Problems Problem Classification Problem Date Documented Date [...] HISTORY OF NICOTINE DEPEND] Onset: 08-29-2019 Episodic Unclassified (1 source) Hospital Follow-up Onset: 01-27-2024 Results Test Name Value Interpretation Reference Range Facil ity BASIC METABOLIC PANLon 01-06 Anion gap [Moles/Vol] 8 mmol/L Normal 5-15 [facility] Comment on above: Performed By: #### B MP #### [facility] ([id number]) [address] [place] [address], [facility] [address] [place] [address] Calcium [Mass/Vol] 8.6 mg/dL Normal 8.5-10.5 [facility] Comment on above: Performed By: #### B MP #### [facility] ([id number]) [address] [place] [address], [address] [place] [address] Chloride [Moles/Vol] 105 mmol/L Normal 98-109 [facility] Comment on above: Performed By: #### B MP #### [facility] ([id number]) [address] [place] [address], [address] [place] [address] CO2 [Moles/Vol] 25 mmol/L Normal 22-32 [facility] Comment on above: Performed By: #### B MP #### [facility] ([id number]) [address] [place] [address], [address] [place] [address] Creatinine [Mass/Vol] 0.74 mg/dL Normal 0.40-1.00 [facility] Comment on above: Result Comment: METH OD TRACEABLE TO IDMS STANDARD Performed By: #### B MP #### [facility] ([id number]) [address], [address] [place] [address] eGFR (CKD-EPI) NON-RACE DEPENDENT >90 Normal >59 [facility] Comment on above: Result Comment: Reported eGFR is based on the CKD-EPI 2020 equation that does not use a race coefficient. Performed By: #### B MP #### [facility] ([id number]) [address], [address] [place] [address] Glucose [Mass/Vol] 87 mg/dL Normal 65-99 [facility] Comment on above: Performed By: #### B MP #### [facility] ([id number]) [address] [address] [place] [address] Potassium [Moles/Vol] 3.9 mmol/L Normal 3.5-5.0 [facility] Comment on above: Performed By: #### B MP #### [facility] ([id number]) [address], [address] [place] [address] Sodium [Moles/Vol] 138 mmol/L Normal 134-146 [facility] Comment on above: Performed By: #### B MP #### [facility] ([id number]) [address], [address] [place] [address] Urea nitrogen [Mass/Vol] 5 mg/dL Normal 5-23 [facility] Comment on above: Performed By: #### B MP #### [facility] ([id number]) [address] [address] [place] [address] INFLUENZA A AND B AGon 08-27 INFLUANEGH SEE BELOW Normal [facility] Comment on above: Result Comment: Nega tive for Flu A protein angiten. Infection due to Flu A cannot be ruled out. Flu A angiten in the sample may be below the detection limit of the test. Performed By: #### I NFLUAB #### [facility] [address] [place] [address] Jessie Gandhi INFLUBNEGH SEE BELOW Normal [facility] Comment on above: Result Comment: Nega tive for Flu B protein antigen. Infection due to Flu B cannot be ruled out. Flu B antigen in the sample may be below the detection limit of the test. Performed By: #### I NFLUAB #### [facility] [address] [address] Jessie Gandhi INFLUENZA A AG Negative Normal NEGATIVE SEE COMMENT [facility] Comment on above: Performed By: #### I NFLUAB #### [facility] [address] [place], [place] [address] Jessie Gandhi INFLUENZA B AG Negative Normal NEGATIVE SEE COMMENT [facility] Comment on above: Performed By: #### I NFLUAB #### [facility] [address] [address] Jessie Gandhi INTERNAL CONTROLS Within Normal Limits Normal Within Normal Limits [facility] Comment on above: Performed By: #### I NFLUAB #### [facility] [address] [place], [place] [address] Jessie Gandhi Encounters Encounter Date Encounter Type Care Provider Facility Start: 01-27-2024 End: 01-27-2024 ambulatory [facility] Start: 01-07-2024 End: 01-08-2024 [facility] Start: 01-07-2024 End: 01-07-2024 ambulatory [facility] Start: 08-27-2019 End: 08-27-2019 Patient encounter procedure PANCHITO JUAREZ Facility:[facility] Procedures Date Procedure Procedure Detail Performing Clinician Start: 01-07-2024 Follow-up visit Follow-up ANDREW WILMA ANN Payers Date Payer Category Payer Medicaid [id number] 1975 Unknown [id number] 1975 Unknown [id number] 1975 Unknown [id number] 1975 Unknown [id number] 1957 Unknown [id number] Summary Purpose Family History No Family History Records FoundNo Family History Records FoundNo Family History Records Found Advance Directives No Advanced Directives Records FoundNo Advanced Directives Records FoundNo Advanced Directives Records Found Additional Source Comments INFORMATION SOURCE (unrecogn ized section and content) DATE CREATED AUTHOR 08/29/2019 [facility] DATE CREATED AUTHOR AUTHOR'S ORGANIZ ATION 01/10/2024 [facility] DATE CREATED AUTHOR AUTHOR'S ORGANIZ ATION 01/29/2024 [facility] FOR RECORDS PERTAINING TO PATIENTS WHO ARE [...] BE BASED ON THE PRIMARY CLINICAL RECORDS. [employer] provides no warranty or guarantee of the accuracy or completeness of information in this document.
--- NOTE | 2024-02-03 20:49 | CT_ITS ---
[address] [address] Patient Name: KELLI LAKE MRN: [id number] date: 1975 Sex: F Assigned Patient Location: ED.MAIN Current Patient Location: Accession/Order Number: [id number] Exam Date: 02/03/2024 21:29 Report Date: 02/03/2024 22:14 At the request of: LUDA GARZA Procedure: CT abdomen pelvis w con EXAM: CT abdomen pelvis w con HISTORY: Right sided abdominal pain, vomiting COMPARISON: 01/10/2024 TECHNIQUE: Dose reduction techniques were achieved by using automated exposure control and/or adjustment of mA and/or kV according to patient size and/or use of iterative reconstruction technique.CT of the abdomen and pelvis with contrast. FINDINGS: Lung bases are clear. Liver, spleen, adrenal glands, kidneys, pancreas, distal esophagus, stomach and duodenum are normal. Uterus and ovaries are unremarkable by this technique. No colonic dilation. No pericolonic fat stranding. No small bowel dilation. No adjacent mesenteric edema. No hydronephrosis. No hydroureter. No nephroureterolithiasis. No bladder stones. No focal bladder wall thickening. No inguinal, pelvic or retroperitoneal adenopathy. Mild degeneration of the symphysis pubis. No acute osseous abnormality. Scoliotic curvature of the thoracolumbar spine. Partially visualized Acuna rods. CT/CT abdomen pelvis w con IMPRESSION: 1. No acute abnormality of the abdomen or pelvis. 2. No small bowel dilation. No colonic dilation. 3. Gallbladder is normal. No hydronephrosis. No hydroureter. No nephroureterolithiasis. 4. Other findings as described. Electronically authenticated by: BEATA CARDOSO Date: 02/03/2024 22:14
[2024-02-03 20:55] LABS: Basophils Absolute Auto 0.1 10^3/uL (0.0-0.1); Basophils Percent Auto 0.6 % (0.2-2.0); Eosinophils Percent Auto 0.1 % (0.9-7.0); Hematocrit 32.4 % (36.0-48.0); Hemoglobin 10.2 g/dL (12.0-16.0); Immature Granulocytes Abs Auto 0.03 10^3/uL (0.00-0.03); Immature Granulocytes Pct Auto 0.2 % (0.0-0.5); Lymphocytes Absolute Auto 0.8 10^3/uL (1.2-3.8); Lymphocytes Percent Auto 6.7 % (20.5-60.0); Mean Corpuscular HGB Conc 31.5 g/dL (29.9-35.2); Mean Corpuscular Hemoglobin 24.8 pg (26.7-34.0); Mean Corpuscular Volume 78.6 fL (81.0-99.0); Mean Platelet Volume 10.2 fL (9.5-13.5); Monocytes Absolute Auto 0.1 10^3/uL (0.3-0.8); Monocytes Percent Auto 1.2 % (1.7-12.0); Neutrophils Absolute Auto 11.1 10^3/uL (1.4-6.5); Neutrophils Percent Auto 91.2 % (43.0-75.0); Platelet Count 346 10^3/uL (150-450); Red Blood Count 4.12 10^6/uL (4.20-5.40); Red Cell Distribution Width 17.9 % (11.0-15.0); White Blood Count 12.2 10^3/uL (4.0-11.0)
--- NOTE | 2024-02-03 20:58 | ED_ITS ---
Documented by User: DANNY Moore 02/03/24 21:35 HPI - Abdominal Pain General Chief Complaint: Abdominal Pain Stated Complaint: Nausea/Vomiting, Abdominal Pain Time Seen by Provider: 02/03/24 20:33 Source: patient Mode of arrival: walk-in Limitations: no limitations History of Present Illness HPI narrative: Patient is a 48-year-old female who presents to the emergency department for abdominal pain and vomiting for the last 5 hours. Patient was seen 4 times last month for abdominal pain, colitis, C. difficile and pancreatitis. She states she continues to have loose stools since her last admission when she was discharged 2 weeks ago. She has not had any significant other symptoms until tonight. She reports multiple episodes of emesis, no change in stools. She has not had any blood in her stool. No fevers or upper respiratory symptoms. She points to pain in the right upper quadrant. No medications taken prior to arrival. Related Data Home Medications ?Medication ?Instructions ?Recorded ?Confirmed escitalopram oxalate 5 mg tablet 5 mg PO DAILY 12/24/23 02/03/24 Allergies Allergy/AdvReac Type Severity Reaction Status Date / Time No Known Drug Allergies Allergy Verified 02/03/24 20:31 Review of Systems ROS Constitutional Denies: fever or chills Ears, nose, mouth, and throat Denies: throat pain or nasal congestion Cardiovascular Denies: chest pain Respiratory Denies: shortness of breath or cough Gastrointestinal Reports: abdominal pain, nausea, vomiting and diarrhea Musculoskeletal Denies: back pain Integumentary/Breast Denies: rash Neurological Denies: headache Hematologic/Lymphatic Denies: easy bruising or easy bleeding PFSH [facility] Medical History (Updated 02/03/24 @ 21:35 by DANNY Moore) Intractable nausea and vomiting ?R11.2 - Nausea with vomiting, unspecified (ICD-10) Intractable abdominal pain ?R10.9 - Unspecified abdominal pain (ICD-10) Depression ?F32.A - Depression, unspecified (ICD-10) Colitis ?K52.9 - Noninfective gastroenteritis and colitis, unspecified (ICD-10) Acute proctitis ?K62.89 - Other specified diseases of anus and rectum (ICD-10) 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 of left artificial elbow joint (ICD-10) Scoliosis ?M41.9 - Scoliosis, unspecified (ICD-10) Surgical History Previous back surgery ?Z98.890 - Other specified postprocedural states (ICD-10) Family History Mother Family history of CHF (congestive heart failure) Family history of cancer Family history of hypertension Family history of myocardial infarction Family history of stroke Father Family history of cancer Social History Within the past year, how often did you have a drink containing alcohol: monthly or less Within the past year, how often did you have six or more drinks on one occasion: less than monthly Smoking status: Former smoker Non-prescribed substance use: cannabis (any form) Previous occupational history: Does not Work Known occupational exposures/hazards: No Highest level of school completed/degree received: some college, no degree Do you want help with school or training: No Are you now , , , , never or living with a partner: never In a typical week, how many times do you talk on the telephone with family, friends, or neighbors: 3 or more times per week How often do you get together with friends or relatives: 3 or more times per week How often do you attend worship or baptist services: never Do you belong to any clubs or organizations such as worship groups unions, fraternal or athletic groups, or school groups: no Total score: 1 Score interpretation: A score of less than or equal to 1 indicates the most socially isolated. Little interest or pleasure in doing things: not at all Feeling down, depressed, or hopeless: not at all Feel stressed/tense/nervous/anxious/difficulty sleeping: not at all Due to disability, difficulty making decisions: No Do you think of yourself as: straight/heterosexual Gender Identity: female Exam Narrative Exam Narrative: Gen.: Awake, alert, in no distress Head: Normocephalic, atraumatic ENT: Moist mucous membranes Respiratory: No respiratory distress Gastrointestinal: Abdomen is soft, nondistended and tender to palpation in the right upper quadrant with no guarding or rebound Extremities: Moves extremities equally Psych: Normal mood and affect Neuro: No focal neuro deficit Skin: Warm, dry, intact Constitutional Vital Signs, click to edit/add: Last Vital Signs Temp 98.0 F 02/03/24 20:04 Pulse 75 02/03/24 20:04 Resp 18 02/03/24 20:04 BP 132/82 02/03/24 20:04 Pulse Ox 99 02/03/24 20:04 O2 Del Method Room Air 02/03/24 20:04 Course Vital Signs Vital signs: Vital Signs Temperature 98.0 F 02/03/24 20:04 Pulse Rate 75 02/03/24 20:04 Respiratory Rate 18 02/03/24 20:04 Blood Pressure 132/82 02/03/24 20:04 Pulse Oximetry 99 02/03/24 20:04 Oxygen Delivery Method Room Air 02/03/24 20:04 Temperature 98.0 F 02/03/24 20:04 Pulse Rate 75 02/03/24 20:04 Respiratory Rate 18 02/03/24 20:04 Blood Pressure 132/82 02/03/24 20:04 Pulse Oximetry 99 02/03/24 20:04 Oxygen Delivery Method Room Air 02/03/24 20:04 MDM - Abdominal Pain MDM Narrative Medical decision making narrative: 2134: Patient ordered to have Toradol for pain with Zofran and Pepcid for vomiting. She is noted to have normal vital signs, white blood cell count is 12.2 which is not uncommon for the patient in the last month. Lipase is normal and her LFTs are unremarkable. CT of the abdomen and pelvis is pending. Case is turned over to attending physician for disposition Medical Records Attestation: I reviewed the patient's medical records. Lab Data Attestation: I reviewed the patient's lab results. Labs: Lab Results 02/03/24 Range/Units 20:35 WBC 12.2 H (4.0-11.0) 10^3/uL RBC 4.12 L (4.20-5.40) 10^6/uL Hgb 10.2 L (12.0-16.0) g/dL Hct 32.4 L (36.0-48.0) % MCV 78.6 L (81.0-99.0) fL MCH 24.8 L (26.7-34.0) pg MCHC 31.5 (29.9-35.2) g/dL RDW 17.9 H (11.0-15.0) % Plt Count 346 (150-450) 10^3/uL MPV 10.2 (9.5-13.5) fL Neut % (Auto) 91.2 H (43.0-75.0) % Lymph % (Auto) 6.7 L (20.5-60.0) % [place] % (Auto) 1.2 L (1.7-12.0) % Eos % (Auto) 0.1 L (0.9-7.0) % Baso % (Auto) 0.6 (0.2-2.0) % Neut # (Auto) 11.1 H (1.4-6.5) 10^3/uL Lymph # (Auto) 0.8 L (1.2-3.8) 10^3/uL [place] # (Auto) 0.1 L (0.3-0.8) 10^3/uL Eos # (Auto) 0.0 (0.0-0.7) 10^3/uL Baso # (Auto) 0.1 (0.0-0.1) 10^3/uL Abs Immat Gran (auto) 0.03 (0.00-0.03) 10^3/uL Imm/Tot Granulo (auto) 0.2 (0.0-0.5) % Sodium 137 (136-145) mmol/L Potassium 3.7 (3.5-5.1) mmol/L Chloride 102 (98-107) mmol/L Carbon Dioxide 26.0 (21.0-32.0) mmol/L Anion Gap 12.7 BUN 5.0 L (7.0-18.0) mg/dL Creatinine 0.81 (0.55-1.02) mg/dL Est GFR ( Amer) >60 (>=60) Est GFR (Non-Af Amer) >60 (>=60) BUN/Creatinine Ratio 6.2 Glucose 149 H (74-106) mg/dL Lactate 1.7 (0.4-2.0) mmol/L Calcium 9.3 (8.5-10.1) mg/dL Total Bilirubin 0.4 (0.2-1.0) mg/dL AST 10 L (15-37) U/L ALT 17 (14-59) U/L Alkaline Phosphatase 76 (46-116) U/L Total Protein 7.9 (6.4-8.2) g/dL Albumin 3.5 (3.4-5.0) g/dL Globulin 4.4 g/dL Albumin/Globulin Ratio 0.8 Lipase 40.0 (16.0-77.0) U/L Serum HCG, Qual Negative (NEGATIVE) Imaging Data Abdominal x-ray: Radiologist's impression: ITS Impressions Abdomen/Pelvis CT 02/03/24 20:49 IMPRESSION: 1. No acute abnormality of the abdomen or pelvis. 2. No small bowel dilation. No colonic dilation. 3. Gallbladder is normal. No hydronephrosis. No hydroureter. No nephroureterolithiasis. 4. Other findings as described. Electronically authenticated by: BEATA CARDOSO Date: 02/03/2024 22:14 Discharge Plan Discharge Stand Alone Forms: Portal Instructions Chief Complaint: Abdominal Pain Clinical Impression: Abdominal pain, Nausea & vomiting Patient Disposition: Home, Self-Care Prescriptions / Home Meds: No Action escitalopram oxalate 5 mg tablet 5 mg PO DAILY Print Language: Honduran Instructions: Acute Nausea and Vomiting (ED), Abdominal Pain (ED) Additional Instructions: follow up with your doctor next week Referrals: Physician,Non-Staff, [Primary Care Provider] - 1 week Documented by User: Vinicio Proctor MD 02/04/24 00:16 HPI - Abdominal Pain General Chief Complaint: Abdominal Pain Stated Complaint: Nausea/Vomiting, Abdominal Pain Time Seen by Provider: 02/03/24 20:33 Related Data Home Medications ?Medication ?Instructions ?Recorded ?Confirmed escitalopram oxalate 5 mg tablet 5 mg PO DAILY 12/24/23 02/03/24 Allergies Allergy/AdvReac Type Severity Reaction Status Date / Time No Known Drug Allergies Allergy Verified 02/03/24 20:31 [facility] Medical History (Updated 02/03/24 @ 21:35 by DANNY Moore) Intractable nausea and vomiting ?R11.2 - Nausea with vomiting, unspecified (ICD-10) Intractable abdominal pain ?R10.9 - Unspecified abdominal pain (ICD-10) Depression ?F32.A - Depression, unspecified (ICD-10) Colitis ?K52.9 - Noninfective gastroenteritis and colitis, unspecified (ICD-10) Acute proctitis ?K62.89 - Other specified diseases of anus and rectum (ICD-10) 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 of left artificial elbow joint (ICD-10) Scoliosis ?M41.9 - Scoliosis, unspecified (ICD-10) Surgical History Previous back surgery ?Z98.890 - Other specified postprocedural states (ICD-10) Family History Mother Family history of CHF (congestive heart failure) Family history of cancer Family history of hypertension Family history of myocardial infarction Family history of stroke Father Family history of cancer Social History Within the past year, how often did you have a drink containing alcohol: monthly or less Within the past year, how often did you have six or more drinks on one occasion: less than monthly Smoking status: Former smoker Non-prescribed substance use: cannabis (any form) Previous occupational history: Does not Work Known occupational exposures/hazards: No Highest level of school completed/degree received: some college, no degree Do you want help with school or training: No Are you now , , , , never or living with a partner: never In a typical week, how many times do you talk on the telephone with family, friends, or neighbors: 3 or more times per week How often do you get together with friends or relatives: 3 or more times per week How often do you attend worship or baptist services: never Do you belong to any clubs or organizations such as worship groups unions, fraternal or athletic groups, or school groups: no Total score: 1 Score interpretation: A score of less than or equal to 1 indicates the most socially isolated. Little interest or pleasure in doing things: not at all Feeling down, depressed, or hopeless: not at all Feel stressed/tense/nervous/anxious/difficulty sleeping: not at all Due to disability, difficulty making decisions: No Do you think of yourself as: straight/heterosexual Gender Identity: female Exam Constitutional Vital Signs, click to edit/add: Last Vital Signs Temp 98.0 F 02/03/24 20:04 Pulse 75 02/03/24 20:04 Resp 18 02/03/24 20:04 BP 132/82 02/03/24 20:04 Pulse Ox 99 02/03/24 20:04 O2 Del Method Room Air 02/03/24 20:04 Course Vital Signs Vital signs: Vital Signs Temperature 98.0 F 02/03/24 20:04 Pulse Rate 75 02/03/24 20:04 Respiratory Rate 18 02/03/24 20:04 Blood Pressure 132/82 02/03/24 20:04 Pulse Oximetry 99 02/03/24 20:04 Oxygen Delivery Method Room Air 02/03/24 20:04 Temperature 98.0 F 02/03/24 20:04 Pulse Rate 75 02/03/24 20:04 Respiratory Rate 18 02/03/24 20:04 Blood Pressure 132/82 02/03/24 20:04 Pulse Oximetry 99 02/03/24 20:04 Oxygen Delivery Method Room Air 02/03/24 20:04 MDM - Abdominal Pain MDM Narrative Medical decision making narrative: 2134: Patient ordered to have Toradol for pain with Zofran and Pepcid for vomiting. She is noted to have normal vital signs, white blood cell count is 12.2 which is not uncommon for the patient in the last month. Lipase is normal and her LFTs are unremarkable. CT of the abdomen and pelvis is pending. Case is turned over to attending physician for disposition care transferred at change of shift. labs and CT pending. CT without acute findings and labs acceptable. Patient's nausea improved and she was discharged home. States she has medication at home she can use if her nausea returns Lab Data Labs: Lab Results 02/03/24 Range/Units 20:35 WBC 12.2 H (4.0-11.0) 10^3/uL RBC 4.12 L (4.20-5.40) 10^6/uL Hgb 10.2 L (12.0-16.0) g/dL Hct 32.4 L (36.0-48.0) % MCV 78.6 L (81.0-99.0) fL MCH 24.8 L (26.7-34.0) pg MCHC 31.5 (29.9-35.2) g/dL RDW 17.9 H (11.0-15.0) % Plt Count 346 (150-450) 10^3/uL MPV 10.2 (9.5-13.5) fL Neut % (Auto) 91.2 H (43.0-75.0) % Lymph % (Auto) 6.7 L (20.5-60.0) % [place] % (Auto) 1.2 L (1.7-12.0) % Eos % (Auto) 0.1 L (0.9-7.0) % Baso % (Auto) 0.6 (0.2-2.0) % Neut # (Auto) 11.1 H (1.4-6.5) 10^3/uL Lymph # (Auto) 0.8 L (1.2-3.8) 10^3/uL [place] # (Auto) 0.1 L (0.3-0.8) 10^3/uL Eos # (Auto) 0.0 (0.0-0.7) 10^3/uL Baso # (Auto) 0.1 (0.0-0.1) 10^3/uL Abs Immat Gran (auto) 0.03 (0.00-0.03) 10^3/uL Imm/Tot Granulo (auto) 0.2 (0.0-0.5) % Sodium 137 (136-145) mmol/L Potassium 3.7 (3.5-5.1) mmol/L Chloride 102 (98-107) mmol/L Carbon Dioxide 26.0 (21.0-32.0) mmol/L Anion Gap 12.7 BUN 5.0 L (7.0-18.0) mg/dL Creatinine 0.81 (0.55-1.02) mg/dL Est GFR ( Amer) >60 (>=60) Est GFR (Non-Af Amer) >60 (>=60) BUN/Creatinine Ratio 6.2 Glucose 149 H (74-106) mg/dL Lactate 1.7 (0.4-2.0) mmol/L Calcium 9.3 (8.5-10.1) mg/dL Total Bilirubin 0.4 (0.2-1.0) mg/dL AST 10 L (15-37) U/L ALT 17 (14-59) U/L Alkaline Phosphatase 76 (46-116) U/L Total Protein 7.9 (6.4-8.2) g/dL Albumin 3.5 (3.4-5.0) g/dL Globulin 4.4 g/dL Albumin/Globulin Ratio 0.8 Lipase 40.0 (16.0-77.0) U/L Serum HCG, Qual Negative (NEGATIVE) Imaging Data Abdominal x-ray: Radiologist's impression: ITS Impressions Abdomen/Pelvis CT 02/03/24 20:49 IMPRESSION: 1. No acute abnormality of the abdomen or pelvis. 2. No small bowel dilation. No colonic dilation. 3. Gallbladder is normal. No hydronephrosis. No hydroureter. No nephroureterolithiasis. 4. Other findings as described. Electronically authenticated by: BEATA CARDOSO Date: 02/03/2024 22:14 Discharge Plan Discharge Stand Alone Forms: Portal Instructions Chief Complaint: Abdominal Pain Clinical Impression: Abdominal pain, Nausea & vomiting Patient Disposition: Home, Self-Care Prescriptions / Home Meds: No Action escitalopram oxalate 5 mg tablet 5 mg PO DAILY Print Language: Honduran Instructions: Acute Nausea and Vomiting (ED), Abdominal Pain (ED) Additional Instructions: follow up with your doctor next week Referrals: Physician,Non-Staff, MD [Primary Care Provider] - 1 week
[2024-02-03 21:04] LABS: HCG Qualitative NEGATIVE (NEGATIVE); Internal Control Within Normal Limits
[2024-02-03 21:12] LABS: Lactate/Lactic Acid 1.7 mmol/L (0.4-2.0)
[2024-02-03 21:19] LABS: Alanine Aminotransferase 17 U/L (14-59); Albumin Globulin Ratio 0.8; Albumin Level 3.5 g/dL (3.4-5.0); Alkaline Phosphatase 76 U/L (46-116); Anion Gap 12.7; Aspartate Amino Transferase 10 U/L (15-37); BUN Creatinine Ratio 6.2; Bilirubin Total 0.4 mg/dL (0.2-1.0); Calcium 9.3 mg/dL (8.5-10.1); Chloride 102 mmol/L (98-107); Estimated GFR (African America >60 (>=60); Estimated GFR (Non-African Ame >60 (>=60); Globulin 4.4 g/dL; Glucose 149 mg/dL (74-106); Potassium 3.7 mmol/L (3.5-5.1); Sodium 137 mmol/L (136-145); Total Protein 7.9 g/dL (6.4-8.2)
[2024-02-03] MEDS: 0.9 % SODIUM CHLORIDE 1,000 ML 999 ML IV (21:19)
[2024-02-03] MEDS: KETOROLAC TROMETHAMINE 30 MG/ML VIAL IVP (21:20)
[2024-02-03] MEDS: FAMOTIDINE/PF 20 MG/2 ML VIAL IV (21:20)
[2024-02-03] MEDS: ONDANSETRON PF 4 MG/2 ML VIAL IV (21:20)
[2024-02-03] MEDS: PROMETHAZINE HCL 12.5 MG in 0.9 % SODIUM CHLORIDE 50 ML 202 MG IV (23:17)
[2024-02-03] MEDS: DIPHENHYDRAMINE HCL 50 MG/ML VIAL IV (23:18)
== END 2024-02-04 00:40 | disposition home or self-care (01) ==
PROVIDERS: Physician Assistant; Emergency Provider Internal Medicine
DX: R10.9 Unspecified abdominal pain (principal); R11.2 Nausea with vomiting, unspecified; Z87.891 Personal history of nicotine dependence
CPT/HCPCS: 36415; 74177; 80053; 83605; 83690; 84703; 85025; 96361; 96365; 96375; 99285; J1200; J1885; J2250; J2405; Q9967

== ENCOUNTER 2024-02-14 10:02 | Emergency (ER) | payer OTHER, SELFPAY ==
[2024-02-14 10:08] VITALS: BP 139/93; PULSE 67; TEMP 37; O2SAT 99; BMI 24.9
--- OUTSIDE RECORDS SUMMARY | 2024-02-14 10:17 | XMS_ITS ---
Patient Summarization (C-CDA 2.1 CCD) Created on: February 14, 2024 [place] : 1975 Sex: Undifferentiated Author Organization Sample organization Care Team Providers Care Learning Center Coordinator Name Role Phone PANCHITO JUAREZ Admitting Unavailable PANCHITO JUAREZ Attending Unavailable LEONEL GARCIA Primary Care Unavailable PANCHITO JUAREZ Consulting Unavailable CLARK THOMAS Consulting Unavailable KAYLIN WEBSTER Consulting Unavailable ANDREW JUAREZ Referring Unavailable ANN, ANDREW Reyes Primary Care Unavailable ANDREW JUAREZ Attending Unavailable ANDREW JUAREZ Referring Unavailable ANDREW JUAREZ Primary Care Unavailable ANDREW JUAREZ Attending Unavailable ANDREW JUAREZ Referring Unavailable ANDREW JUAREZ Primary Care Unavailable GEOVANNI [place] Attending Unavailable GEOVANNI [place] Referring Unavailable GEOVANNI [place] Primary Care Unavailable GEOVANNI [place] Primary Care Unavailable CLIVE RAHMAN Attending Unavailable Allergies Allergy Classification Reported Allergen(s) Allergy Type Date of Onset Reaction(s) Facility (2 sources) metroNIDAZOLE; Translations: [METRONIDAZOLE] Drug Allergy 01-27-[address] [facility] Encounters Encounter Date Encounter Type Care Provider Facility Start: 02-10-2024 End: 02-10-2024 Emergency department patient visit [facility] Start: 02-08-2024 End: 02-08-2024 ambulatory [facility] Start: 01-27-2024 End: 01-27-2024 ambulatory [facility] Start: 01-07-2024 End: 01-08-2024 ambulatory [facility] Start: 01-07-2024 End: 01-07-2024 ambulatory [facility] Start: 08-27-2019 End: 08-27-2019 Patient encounter procedure PANCHITO JUAREZ Facility: Payers Date Payer Category Payer Medicaid [id number] 1975 Unknown [id number] 2.16.84 [id number] 1975 Unknown [id number] 2.16.8 [id number] 1975 Unknown [id number] 2.16.8 [id number] 1975 Unknown [id number] 2.16.8 [id number] 1975 Unknown [id number] 2.16.8 [id number] 1975 Unknown [id number] 2.16.8 [id number] 1957 Unknown [id number] Problems Problem Classification Problem Date Documented Date Episodic/Chronic Abdominal pain (1 source) Abdominal pain Onset: 02-10-2024 Episodic Chronic obstructive pulmonary disease and bronchiectasis (1 [...] disorder, single episode, unspecified] Onset: 01-07-2024 Chronic Nausea and vomiting (1 source) Nausea with vomiting, unspecified; Translations: [Nausea with vomiting, unspecified] Onset: 02-10-2024 Episodic Noninfectious gastroenteritis (1 source) Noninfective gastroenteritis and colitis, unspecified; Translations: [Noninfective gastroenteritis and colitis, unspecified] Onset: 01-07-2024 Episodic Other acquired deformities (1 source) Scoliosis, unspecified; Translations: [SCOLIOSIS UNSPECIFIED] Onset: 08-29-2019 Chronic Other circulatory disease (1 source) Hypotension, unspecified; Translations: [Hypotension, unspecified] Onset: 02-08-2024 Episodic Other lower respiratory disease (4 sources) Cough; [...] Unclassified (1 source) Hospital Follow-up Onset: 01-27-2024 Unclassified (1 source) Vomitting Onset: 02-10-2024 Procedures Date Procedure Procedure Detail Performing Clinician Start: 01-07-2024 Follow-up visit Follow-up ANDREW JUAREZ Results Test Name Value Interpretation Reference Range Facil ity CBC AND AUTO DIFFon 02-10-20 ABSOLUTE BASOPHIL 0.0 X10E9/L Normal 0.0-0.2 [facility] Comment on above: Performed By: #### C BCA, 20798-8, CMP, 3040-3 #### [facility] ([id number]) [address] [place] [address] 11671 ABSOLUTE NEUTROPHIL 11.5 X10E9/L High 1.5-6.6 [facility] Comment on above: Performed By: #### C BCA, 27096-8, CMP, 3040-3 #### [facility] ([id number]) [address] [place] [address] 89799 Basophils/100 WBC (Bld) 0.2 % Normal [facility] Comment on above: Performed By: #### C BCA, 75066-0, CMP, 3040-3 #### [facility] ([id number]) [address] [place] [address] 49771 Eosinophils (Bld) [#/Vol] 0.0 10*3/uL Normal 0.0-0.4 [facility] Comment on above: Performed By: #### Marguerite JASSO, 56819-3, CMP, 3040-3 #### [facility] ([id number]) [address] [place] [address] 88032 Eosinophils/100 WBC (Bld) 0.1 % Normal [facility] Comment on above: Performed By: #### Marguerite JASSO, 65460-6, CMP, 0-3 #### [facility] ([id number]) [address] [place] [address] 37025 Erythrocyte distribution width (RBC) [Ratio] 19.1 % High 11.5-15.0 [facility] Comment on above: Performed By: #### Marguerite JASSO, 21413-5, CMP, 0-3 #### [facility] ([id number]) [address] [place] [address] 45243 Hematocrit (Bld) [Volume fraction] 36.4 % Normal 35-47 [facility] Comment on above: Performed By: #### Marguerite JASSO, 61152-0, CMP, 0-3 #### [facility] ([id number]) [address] [place] [address] 90079 Hemoglobin (Bld) [Mass/Vol] 12.2 g/dL Normal 11.7-15.5 [facility] Comment on above: Performed By: #### Marguerite JASSO, 76379-9, CMP, 3039-3 #### [facility] ([id number]) [address] [place] [address] 65864 Lymphocytes (Bld) [#/Vol] 0.7 10*3/uL Low 1.0-3.5 [facility] Comment on above: Performed By: #### Marguerite JASSO, 02353-3, CMP, 3040-3 #### [facility] ([id number]) [address] [place] [address] 46248 Lymphocytes/100 WBC (Bld) 5.7 % Normal [facility] Comment on above: Performed By: #### Marguerite JASSO, 04693-1, CMP, 0-3 #### [facility] ([id number]) [address] [place] [address] 37419 MCH (RBC) [Entitic mass] 24.9 pg Low 27-34 [facility] Comment on above: Performed By: #### Marguerite JASSO, 21839-0, CMP, 0-3 #### [facility] ([id number]) [address] [place] [address] 37679 MCHC (RBC) [Mass/Vol] 33.5 g/dL Normal 32-36 [facility] Comment on above: Performed By: #### Marguerite JASSO, 11016-0, CMP, 0-3 #### [facility] ([id number]) [address] [place] [address] 32964 MCV (RBC) [Entitic vol] 74 fL Low 80-100 [facility] Comment on above: Performed By: #### Marguerite JASSO, 19002-9, CMP, 0-3 #### [facility] ([id number]) [address] [place] [address] 33697 Monocytes (Bld) [#/Vol] 0.4 10*3/uL Normal 0-0.9 [facility] Comment on above: Performed By: #### Marguerite JASSO, 15100-3, CMP, 3039-3 #### [facility] ([id number]) [address] [place] [address] 95433 Monocytes/100 WBC (Bld) 3.2 % Normal [facility] Comment on above: Performed By: #### Marguerite JASSO, 38179-3, CMP, 0-3 #### [facility] ([id number]) [address] [place] [address] 25608 Neutrophils/100 WBC (Bld) 90.8 % Normal [facility] Comment on above: Performed By: #### Marguerite BCA, 44905-2, CMP, 3040-3 #### [facility] ([id number]) [address] [place] [address] 06667 Platelet mean volume (Bld) [Entitic vol] 8.1 fL Normal 7-12 [facility] Comment on above: Performed By: #### Marguerite BCA, 71426-3, CMP, 3040-3 #### [facility] ([id number]) [address] [place] [address] 93691 Platelets (Bld) [#/Vol] 435 10*3/uL Normal 150-450 [facility] Comment on above: Performed By: #### Marguerite BCA, 34713-0, CMP, 3040-3 #### [facility] ([id number]) [address] [place] [address] 90290 RBC COUNT 4.90 X10E12/L Normal 3.80-5.20 [facility] Comment on above: Performed By: #### Marguerite BCA, 33269-6, CMP, 3040-3 #### [facility] ([id number]) [address] [place] [address] 73764 WBC (Bld) [#/Vol] 12.6 10*3/uL High 4.0-11.0 [facility] Comment on above: Performed By: #### Marguerite BCA, 27210-8, CMP, 3040-3 #### [facility] ([id number]) [address] [place] [address] 29757 COMPREHENSIVE METABOLIC PANE Hoang 02-10-2024 Albumin [Mass/Vol] 4.1 g/dL Normal 3.2-5.3 [facility] Comment on above: Performed By: #### Marguerite BCA, 55671-6, CMP, 3040-3 #### [facility] ([id number]) [address] [place] [address] ALP [Catalytic activity/Vol] 53 U/L Normal 39-130 [facility] Comment on above: Performed By: #### C BCA, 99466-2, CMP, 3040-3 #### [facility] ([id number]) [address] [place] [address] 66899 ALT [Catalytic activity/Vol] 10 U/L Normal 0-31 [facility] Comment on above: Performed By: #### C BCA, 10292-4, CMP, 3040-3 #### [facility] ([id number]) [address] [place] [address] 76612 Anion gap [Moles/Vol] 8 mmol/L Normal 5-15 [facility] Comment on above: Performed By: #### C BCA, 44662-7, CMP, 3040-3 #### [facility] ([id number]) [address] [place] [address] [place] [address] AST [Catalytic activity/Vol] 17 U/L Normal 0-41 [facility] Comment on above: Performed By: #### C BCA, 45395-5, CMP, 3040-3 #### [facility] ([id number]) [address] [place] [address] 44169 Bilirubin [Mass/Vol] 1.0 mg/dL Normal 0.3-1.2 [facility] Comment on above: Performed By: #### C BCA, 50579-4, CMP, 3040-3 #### [facility] ([id number]) [address] [place] [address] 28290 Calcium [Mass/Vol] 8.5 mg/dL Normal 8.5-10.5 [facility] Comment on above: Performed By: #### C BCA, 84544-1, CMP, 3040-3 #### [facility] ([id number]) [address] [place] [address] [place] [address] Chloride [Moles/Vol] 99 mmol/L Normal 98-109 [facility] Comment on above: Performed By: #### C BCA, 85116-3, CMP, 3040-3 #### [facility] ([id number]) [address] [place] [address] 18330 CO2 [Moles/Vol] 24 mmol/L Normal 22-32 [facility] Comment on above: Performed By: #### C BCA, 33605-0, CMP, 3040-3 #### [facility] ([id number]) [address] [place] [address] 12274 Creatinine [Mass/Vol] 0.71 mg/dL Normal 0.40-1.00 [facility] Comment on above: Result Comment: METH OD TRACEABLE TO IDMS STANDARD Performed By: #### C BCA, 10295-0, CMP, 3040-3 #### [facility] ([id number]) [address] [place] [address] 65262 eGFR (CKD-EPI) NON-RACE DEPENDENT >90 Normal >59 [facility] Comment on above: Result Comment: Reported eGFR is based on the CKD-EPI 2020 equation that does not use a race coefficient. Performed By: #### C BCA, 07720-8, CMP, 3040-3 #### [facility] ([id number]) [address] [place] [address] 93513 Glucose [Mass/Vol] 114 mg/dL High 65-99 [facility] Comment on above: Performed By: #### C BCA, 82564-4, CMP, 3040-3 #### [facility] ([id number]) [address] [place] [address] 40141 Potassium [Moles/Vol] 3.7 mmol/L Normal 3.5-5.0 [facility] Comment on above: Performed By: #### C BCA, 31462-2, CMP, 3040-3 #### [facility] ([id number]) [address] [place] [address] 19733 Protein [Mass/Vol] 7.6 g/dL Normal 6.0-8.0 [facility] Comment on above: Performed By: #### C BCA, 70716-8, CMP, 3040-3 #### [facility] ([id number]) [address] [place] [address] 69950 Sodium [Moles/Vol] 131 mmol/L Low 134-146 [facility] Comment on above: Performed By: #### C BCA, 89451-2, CMP, 3040-3 #### [facility] ([id number]) [address] [place] [address] 40571 Urea nitrogen [Mass/Vol] 11 mg/dL Normal 5-23 [facility] Comment on above: Performed By: #### C BCA, 80998-1, CMP, 3040-3 #### [facility] ([id number]) [address] [place] [address] 28217 HCG ( test) Ql (U)o n 02-10-2024 Beta HCG ( test) Ql (U) Negative Normal NEG [facility] Comment on above: Performed By: #### 2 106-3 #### [facility] ([id number]) [address] [place] [address] 33802 LIPASEon 02-10-2024 Lipase [Catalytic activity/Vol] 42 U/L High 17-40 [facility] Comment on above: Performed By: #### C BCA, 10186-3, CMP, 3040-3 #### [facility] ([id number]) [address] [place] [address] 16552 Lactate (P caroline) [Moles/Vol]o n 02-10-2024 LACTATE W/REFLEX 1.1 mmol/L Normal 0.4-2.0 [facility] Comment on above: Result Comment: Result did not trigger repeat Lactate, re-order if needed. Performed By: #### C BCA, 05617-7, CMP, 3040-3 #### [facility] ([id number]) [address] [place] [address] 82364 URN MACROSCOPIC NURon 2023 BILIRUBIN MEÑO Small Abnormal NEG [facility] Comment on above: Performed By: #### N UM #### [facility] ([id number]) [address] [place] [address] [place] [address] BLOOD/HGB MEÑO Negative Normal NEG [facility] Comment on above: Performed By: #### N UM #### [facility] ([id number]) [address] [place] [address] [place] [address] GLUCOSE MEÑO Negative Normal NEG [facility] Comment on above: Performed By: #### N UM #### [facility] ([id number]) [address] [place] [address] [place] [address] KETONES MEÑO 80 mg/dL Abnormal NEG [facility] Comment on above: Performed By: #### N UM #### [facility] ([id number]) [address] [place] [address] [place] [address] LEUKOCYTE ESTERASE MEÑO Negative Normal NEG [facility] Comment on above: Performed By: #### N UM #### [facility] ([id number]) [address] [place] [address] [place] [address] NITRITE MEÑO Negative Normal NEG [facility] Comment on above: Performed By: #### N UM #### [facility] ([id number]) [address] [place] [address] 48152 PH MEÑO 6.0 Normal 5.0-8.5 [facility] Comment on above: Performed By: #### N UM #### [facility] ([id number]) [address] [place] [address] 62635 PROTEIN MEÑO 30 mg/dL Abnormal NEG [facility] Comment on above: Performed By: #### N UM #### [facility] ([id number]) [address] [place] [address], [place] [address] SPECIFIC GRAVITY MEÑO 1.025 Normal 1.003-1.035 [facility] Comment on above: Performed By: #### N UM #### [facility] ([id number]) [address] [place] [address] 99531 UROBILINOGEN MEÑO 0.2 eu/dL Normal <1.1 [facility] Comment on above: Performed By: #### N UM #### [facility] ([id number]) [address] [place] [address] 91569 BASIC METABOLIC PANLon 01-06 Anion gap [Moles/Vol] 8 mmol/L Normal 5-15 [facility] Comment on above: Performed By: #### B MP #### [facility] ([id number]) [address] [place] [address] Calcium [Mass/Vol] 8.6 mg/dL Normal 8.5-10.5 [facility] Comment on above: Performed By: #### B MP #### [facility] ([id number]) [address] [place] [address] Chloride [Moles/Vol] 105 mmol/L Normal 98-109 [facility] Comment on above: Performed By: #### B MP #### [facility] ([id number]) [address] [place] [address] CO2 [Moles/Vol] 25 mmol/L Normal 22-32 [facility] Comment on above: Performed By: #### B MP #### [facility] ([id number]) [address] [place] [address] Creatinine [Mass/Vol] 0.74 mg/dL Normal 0.40-1.00 [facility] Comment on above: Result Comment: METH OD TRACEABLE TO IDMS STANDARD Performed By: #### B MP #### [facility] ([id number]) [address] [address] [place] [address] eGFR (CKD-EPI) NON-RACE DEPENDENT >90 Normal >59 [facility] Comment on above: Result Comment: Reported eGFR is based on the CKD-EPI 2020 equation that does not use a race coefficient. Performed By: #### B MP #### [facility] ([id number]) [address] [address] [place] [address] Glucose [Mass/Vol] 87 mg/dL Normal 65-99 [facility] Comment on above: Performed By: #### B MP #### [facility] ([id number]) [address] [address] Potassium [Moles/Vol] 3.9 mmol/L Normal 3.5-5.0 [facility] Comment on above: Performed By: #### B MP #### [facility] ([id number]) [address] [address] Sodium [Moles/Vol] 138 mmol/L Normal 134-146 [facility] Comment on above: Performed By: #### B MP #### [facility] ([id number]) [address] [address] Urea nitrogen [Mass/Vol] 5 mg/dL Normal 5-23 [facility] Comment on above: Performed By: #### B MP #### [facility] ([id number]) [address] [address] INFLUENZA A AND B AGon 08-27 INFLUANEGH SEE BELOW Normal [facility] Comment on above: Result Comment: Nega tive for Flu A protein angiten. Infection due to Flu A cannot be ruled out. Flu A angiten in the sample may be below the detection limit of the test. Performed By: #### I NFLUAB #### [facility] [address] [place] [address] Jessie Gandhi INFLUBNEGH SEE BELOW Normal [facility] Comment on above: Result Comment: Nega tive for Flu B protein antigen. Infection due to Flu B cannot be ruled out. Flu B antigen in the sample may be below the detection limit of the test. Performed By: #### I NFLUAB #### [facility] [address] [address] Jessie Gandhi INFLUENZA A AG Negative Normal NEGATIVE SEE COMMENT [facility] Comment on above: Performed By: #### I NFLUAB #### [facility] [address] [place] [address] Jessie Gandhi INFLUENZA B AG Negative Normal NEGATIVE SEE COMMENT [facility] Comment on above: Performed By: #### I NFLUAB #### [facility] [address] [place] [address] Jessie Gandhi INTERNAL CONTROLS Within Normal Limits Normal Within Normal Limits [facility] Comment on above: Performed By: #### I NFLUAB #### [facility] [address] [place] [address] Jessie Gandhi Summary Purpose Family History No Family History Records FoundNo Family History Records FoundNo Family History Records FoundNo Family History Records Found Advance Directives No Advanced Directives Records FoundNo Advanced Directives Records FoundNo Advanced Directives Records FoundNo Advanced Directives Records Found Additional Source Comments INFORMATION SOURCE (unrecogn ized section and content) DATE CREATED AUTHOR 08/29/2019 [facility] DATE CREATED AUTHOR AUTHOR'S ORGANIZ ATION 01/10/2024 [facility] DATE CREATED AUTHOR AUTHOR'S ORGANIZ ATION 02/09/2024 [facility] DATE CREATED AUTHOR AUTHOR'S ORGANIZ ATION 02/12/2024 [facility] FOR RECORDS PERTAINING TO PATIENTS WHO [...] BE BASED ON THE PRIMARY CLINICAL RECORDS. [facility] [employer] [facility]. provides no warranty or guarantee of the accuracy or completeness of information in this document.
[2024-02-14] MEDS: ONDANSETRON PF 4 MG/2 ML VIAL IV (10:28)
[2024-02-14] MEDS: 0.9 % SODIUM CHLORIDE 1,000 ML 1000 ML IV (10:29)
--- NOTE | 2024-02-14 10:53 | ED_ITS ---
HPI - Nausea/Vomiting/Diarrhea General Chief complaint: Nausea/Vomiting/Diarrhea Stated complaint: ABDOMINAL PAIN Time Seen by Provider: 02/14/24 10:12 Source: patient Mode of arrival: walk-in Limitations: no limitations History of Present Illness HPI Narrative: 48-year-old female presents for nausea and vomiting since last night. She complains of minimal abdominal pain and no hematemesis or diarrhea. No fever or injury. She has had abdominal issues over the past few months and has had colitis and pancreatitis and C. difficile. She is scheduled for a colonoscopy on March 08. The pain is mild. Related Data Home Medications ?Medication ?Instructions ?Recorded ?Confirmed escitalopram oxalate 5 mg tablet 5 mg PO DAILY 12/24/23 02/03/24 dicyclomine 20 mg tablet 20 mg PO BID 02/14/24 02/14/24 Previous Rx's ?Medication ?Instructions ?Recorded promethazine 25 mg tablet 25 mg PO Q6H PRN nausea and 02/14/24 vomiting #20 tabs Allergies Allergy/AdvReac Type Severity Reaction Status Date / Time No Known Drug Allergies Allergy Verified 02/03/24 20:31 Review of Systems ROS Narrative A ten point review of systems is negative except as noted above. 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 of left artificial elbow joint (ICD-10) Scoliosis ?M41.9 - Scoliosis, unspecified (ICD-10) Surgical History Previous back surgery ?Z98.890 - Other specified postprocedural states (ICD-10) Family History Mother Family history of CHF (congestive heart failure) Family history of cancer Family history of hypertension Family history of myocardial infarction Family history of stroke Father Family history of cancer Social History Within the past year, how often did you have a drink containing alcohol: monthly or less Within the past year, how often did you have six or more drinks on one occasion: less than monthly Smoking status: Former smoker Non-prescribed substance use: cannabis (any form) Previous occupational history: Does not Work Known occupational exposures/hazards: No Highest level of school completed/degree received: some college, no degree Do you want help with school or training: No Are you now , , , , never or living with a partner: never In a typical week, how many times do you talk on the telephone with family, friends, or neighbors: 3 or more times per week How often do you get together with friends or relatives: 3 or more times per week How often do you attend pentecostalism or alevism services: never Do you belong to any clubs or organizations such as pentecostalism groups unions, [employer] or athletic groups, or school groups: no Total score: 1 Score interpretation: A score of less than or equal to 1 indicates the most socially isolated. Little interest or pleasure in doing things: not at all Feeling down, depressed, or hopeless: not at all Feel stressed/tense/nervous/anxious/difficulty sleeping: not at all Due to disability, difficulty making decisions: No Do you think of yourself as: straight/heterosexual Gender Identity: female Exam Narrative Exam Narrative: Nurses note and vital signs reviewed and patient is not hypoxic. General: The patient appears well and in no apparent distress. Patient is resting comfortably on cart. Skin: Warm, dry, minimal pallor noted. There is no rash noted. Head: Normocephalic, atraumatic Eye: Normal conjunctiva, no drainage Ears, Nose, Mouth, and Throat: oral mucosa is moist. Nares patent. Cardiovascular: Regular Rate and Rhythm Respiratory: Patient is in no distress, no accessory muscle use, lungs are clear to auscultation, no wheezing, rales or rhonchi Back: non-tender GI: Normal bowel sounds, mild tenderness to palpation in the mid abdomen, no masses appreciated. No rebound, guarding, or rigidity noted. Musculoskeletal: The patient has no evidence of calf tenderness, no pitting edema, symmetrical pulses noted bilaterally Neurological: Awake and alert Psychiatric: Cooperative Constitutional Vital Signs, click to edit/add: Last Vital Signs Temp 98.6 F 02/14/24 10:08 Pulse 83 02/14/24 12:28 Resp 18 02/14/24 12:28 BP 130/94 H 02/14/24 12:28 Pulse Ox 100 02/14/24 12:28 O2 Del Method Room Air 02/14/24 12:28 Course Vital Signs Vital signs: Vital Signs Temperature 98.6 F 02/14/24 10:08 Pulse Rate 67 02/14/24 10:08 Respiratory Rate 16 02/14/24 10:08 Blood Pressure 139/93 H 02/14/24 10:08 Pulse Oximetry 99 02/14/24 10:08 Oxygen Delivery Method Room Air 02/14/24 10:08 Temperature 98.6 F 02/14/24 10:08 Pulse Rate 83 02/14/24 12:28 Respiratory Rate 18 02/14/24 12:28 Blood Pressure 130/94 H 02/14/24 12:28 Pulse Oximetry 100 02/14/24 12:28 Oxygen Delivery Method Room Air 02/14/24 12:28 MDM - Nausea/Vomiting/Diarrhea MDM Narrative Medical decision making narrative: Blood work is normal. I have no clinical suspicion of acute appendicitis. I also do not suspect colitis or diverticulitis at this point. She is tolerating p.o. liquids after being given IV fluids and antiemetics and is able to be discharged home. Treatment diagnosis and follow-up were discussed with the patient. She has had 2 CTs of her abdomen in the past 2 months and I do not feel another 1 is indicated. Differential Diagnosis Differential diagnosis: Likely food poisoning, gastroenteritis, drug-induced nausea and vomiting and dehydration Lab Data Attestation: I reviewed the patient's lab results. Labs: Lab Results 02/14/24 02/14/24 Range/Units 10:40 11:30 WBC 12.5 H (4.0-11.0) 10^3/uL RBC 5.00 (4.20-5.40) 10^6/uL Hgb 12.2 (12.0-16.0) g/dL Hct 39.0 (36.0-48.0) % MCV 78.0 L (81.0-99.0) fL MCH 24.4 L (26.7-34.0) pg MCHC 31.3 (29.9-35.2) g/dL RDW 17.4 H (11.0-15.0) % Plt Count 337 (150-450) 10^3/uL MPV 10.2 (9.5-13.5) fL Neut % (Auto) 88.4 H (43.0-75.0) % Lymph % (Auto) 7.8 L (20.5-60.0) % [place] % (Auto) 3.0 (1.7-12.0) % Eos % (Auto) 0.1 L (0.9-7.0) % Baso % (Auto) 0.4 (0.2-2.0) % Neut # (Auto) 11.0 H (1.4-6.5) 10^3/uL Lymph # (Auto) 1.0 L (1.2-3.8) 10^3/uL [place] # (Auto) 0.4 (0.3-0.8) 10^3/uL Eos # (Auto) 0.0 (0.0-0.7) 10^3/uL Baso # (Auto) 0.1 (0.0-0.1) 10^3/uL Abs Immat Gran (auto) 0.04 H (0.00-0.03) 10^3/uL Imm/Tot Granulo (auto) 0.3 (0.0-0.5) % Sodium 134 L (136-145) mmol/L Potassium 3.3 L (3.5-5.1) mmol/L Chloride 94 L (98-107) mmol/L Carbon Dioxide 27.9 (21.0-32.0) mmol/L Anion Gap 15.4 BUN 5.0 L (7.0-18.0) mg/dL Creatinine 0.86 (0.55-1.02) mg/dL Est GFR ( Amer) >60 (>=60) Est GFR (Non-Af Amer) >60 (>=60) BUN/Creatinine Ratio 5.8 Glucose 138 H (74-106) mg/dL Calcium 9.2 (8.5-10.1) mg/dL Total Bilirubin 0.6 (0.2-1.0) mg/dL Direct Bilirubin 0.2 (0.0-0.2) mg/dL AST 15 (15-37) U/L ALT 16 (14-59) U/L Alkaline Phosphatase 69 (46-116) U/L Total Protein 8.6 H (6.4-8.2) g/dL Albumin 4.0 (3.4-5.0) g/dL Globulin 4.6 g/dL Albumin/Globulin Ratio 0.9 Amylase 71 (25-115) U/L Lipase 68.0 (16.0-77.0) U/L Urine Color Straw (YELLOW) Urine Clarity Clear (CLEAR) Urine pH 7.5 (5.0-9.0) Ur Specific [place] 1.015 (1.005-1.025) Urine Protein Negative (NEG/TRACE) mg/dL Urine Glucose (UA) Negative (NEGATIVE) mg/dL Urine Ketones Trace A (NEGATIVE) mg/dL Urine Occult Blood Negative (NEGATIVE) Urine Nitrite Negative (NEGATIVE) Urine Bilirubin Negative (NEGATIVE) Urine Urobilinogen 0.2 (0.2-1.0) EU/dL Ur Leukocyte Esterase Negative (NEGATIVE) Urine RBC 0-2 (0-2) #/HPF Urine WBC 0-2 A (NONE SEEN) #/HPF Ur Squamous Epith Cells Rare (NONE/RARE) #/LPF Urine Crystals None seen (None Seen) #/HPF Urine Bacteria Small A (NONE SEEN) #/HPF Urine Casts None seen (NONE SEEN) #/LPF Urine Mucus Moderate A (NONE SEEN) Ur Culture Indicated? Yes Discharge Plan Discharge Stand Alone Forms: Portal Instructions Chief Complaint: Nausea/Vomiting/Diarrhea Clinical Impression: Nausea & vomiting Patient Disposition: Home, Self-Care Time of Disposition Decision: 14:00 Condition: Good Mode of Transportation: Private Vehicle Prescriptions / Home Meds: New promethazine 25 mg tablet 25 mg PO Q6H PRN (Reason: nausea and vomiting) Qty: 20 0RF No Action escitalopram oxalate 5 mg tablet 5 mg PO DAILY dicyclomine 20 mg tablet 20 mg PO BID Print Language: Solomon Islander Instructions: Acute Nausea and Vomiting (ED) Referrals: GEOVANNI [place] [Primary Care Provider] - 1 week
[2024-02-14 10:58] LABS: Basophils Absolute Auto 0.1 10^3/uL (0.0-0.1); Basophils Percent Auto 0.4 % (0.2-2.0); Eosinophils Percent Auto 0.1 % (0.9-7.0); Hemoglobin 12.2 g/dL (12.0-16.0); Immature Granulocytes Abs Auto 0.04 10^3/uL (0.00-0.03); Immature Granulocytes Pct Auto 0.3 % (0.0-0.5); Lymphocytes Percent Auto 7.8 % (20.5-60.0); Mean Corpuscular HGB Conc 31.3 g/dL (29.9-35.2); Mean Corpuscular Hemoglobin 24.4 pg (26.7-34.0); Mean Platelet Volume 10.2 fL (9.5-13.5); Monocytes Absolute Auto 0.4 10^3/uL (0.3-0.8); Neutrophils Percent Auto 88.4 % (43.0-75.0); Platelet Count 337 10^3/uL (150-450); Red Cell Distribution Width 17.4 % (11.0-15.0); White Blood Count 12.5 10^3/uL (4.0-11.0)
[2024-02-14 11:16] LABS: Alanine Aminotransferase 16 U/L (14-59); Albumin Globulin Ratio 0.9; Alkaline Phosphatase 69 U/L (46-116); Amylase 71 U/L (25-115); Anion Gap 15.4; Aspartate Amino Transferase 15 U/L (15-37); BUN Creatinine Ratio 5.8; Bilirubin Direct 0.2 mg/dL (0.0-0.2); Bilirubin Total 0.6 mg/dL (0.2-1.0); Calcium 9.2 mg/dL (8.5-10.1); Carbon Dioxide 27.9 mmol/L (21.0-32.0); Chloride 94 mmol/L (98-107); Estimated GFR (African America >60 (>=60); Estimated GFR (Non-African Ame >60 (>=60); Globulin 4.6 g/dL; Glucose 138 mg/dL (74-106); Potassium 3.3 mmol/L (3.5-5.1); Sodium 134 mmol/L (136-145); Total Protein 8.6 g/dL (6.4-8.2)
[2024-02-14 11:46] LABS: Bilirubin Urine NEGATIVE (NEGATIVE); Blood Urine NEGATIVE (NEGATIVE); Clarity Urine CLEAR (CLEAR); Glucose Urine UA NEGATIVE (NEGATIVE); Ketones Urine TRACE mg/dL (NEGATIVE); Leukocyte Esterase Urine NEGATIVE (NEGATIVE); Nitrite Urine NEGATIVE (NEGATIVE); Protein Urine NEGATIVE (NEG/TRACE); Specific Gravity Urine 1.015 (1.005-1.025); Urobilinogen Urine 0.2 EU/dL (0.2-1.0); pH Urine 7.5 (5.0-9.0)
[2024-02-14 12:02] LABS: Color Urine STRAW (YELLOW); RBC Urine 0-2 #/HPF (0-2); WBC Urine 0-2 #/HPF (NONE SEEN)
[2024-02-14 12:03] LABS: Bacteria Urine SMALL #/HPF (NONE SEEN); Cast Seen? NONE SEEN #/LPF (NONE SEEN); Crystals Seen? None Seen #/HPF (None Seen); Mucus Urine MODERATE (NONE SEEN); Squamous Epithelial Cell Urine RARE #/LPF (NONE/RARE); Urine Culture Indicated YES
[2024-02-14 12:28] VITALS: BP 130/94; PULSE 83; O2SAT 100
[2024-02-14] MEDS: PROMETHAZINE HCL 12.5 MG in 0.9 % SODIUM CHLORIDE 50 ML 202 MG IV (12:32)
== END 2024-02-14 14:23 | disposition home or self-care (01) ==
PROVIDERS: Emergency Provider Emergency Medicine; PCP Internal Medicine
DX: R11.2 Nausea with vomiting, unspecified (principal); Z87.891 Personal history of nicotine dependence
CPT/HCPCS: 36415; 80048; 80076; 81001; 82150; 83690; 85025; 87086; 96361; 96365; 96375; 99285; J2250; J2405

== ENCOUNTER 2024-03-17 13:37 | Outpatient (OUT) | payer OTHER, SELFPAY ==
[2024-03-17 15:02] LABS: C Reactive Protein 2.45 mg/dL (<=0.50)
[2024-03-21 20:10] LABS: Anti-MPO Antibodies 1.4 units (0.0-0.9); Anti-PR3 Antibodies <0.2 units (0.0-0.9); Cytoplasmic (C-ANCA) <1:20 titer (Neg:<1:20); Perinuclear (P-ANCA) <1:20 titer (Neg:<1:20)
== END 2024-03-17 13:38 | disposition home or self-care (01) ==
LOC: LAB 13:42
PROVIDERS: PCP Internal Medicine; Visit Provider Internal Medicine
DX: K52.9 Noninfective gastroenteritis and colitis, unspecified (principal)
CPT/HCPCS: 36415; 83516; 86037; 86140

== ENCOUNTER 2024-05-22 16:09 | Inpatient (IN) | payer OTHER, SELFPAY ==
[2024-05-22 16:14] VITALS: BP 152/92; PULSE 61; TEMP 36.6; O2SAT 100; BMI 25.0
--- NOTE | 2024-05-22 16:22 | CT_ITS ---
The [address] [address] Patient Name: KELLI LAKE MRN: [id number] date: 1975 Sex: F Assigned Patient Location: ER Current Patient Location: .[facility] Accession/Order Number: [id number] Exam Date: 05/22/2024 18:36 Report Date: 05/22/2024 20:08 At the request of: MAIDA MEMBRENO Procedure: CT abdomen pelvis w con EXAM: CT abdomen pelvis w con TECHNIQUE: Axial CT images were obtained of the abdomen and pelvis with intravenous contrast. Sagittal and coronal reformatted images were also obtained. Dose reduction techniques were achieved by using automated exposure control and/or adjustment of mA and/or kV according to patient size and/or use of iterative reconstruction technique. HISTORY: Upper abdominal pain, hx colitis, pancreatitis COMPARISON: 02/03/2024 FINDINGS: Lower chest: The lower lungs are clear. Liver: Diffuse decreased attenuation of liver suggesting steatosis. The liver is elongated up to 20 cm in length. Gallbladder: The gallbladder is unremarkable. There is no intra or extrahepatic biliary dilatation. Pancreas: The pancreas is homogeneous without evidence for mass lesion or inflammation. Spleen: The spleen is unremarkable without evidence for mass lesion. Adrenal glands: The adrenal glands are unremarkable Kidneys and bladder: The kidneys are unremarkable with no evidence for mass lesion, hydronephrosis or inflammation. The ureters demonstrate normal caliber. The urinary bladder is unremarkable. GI Tract: Stomach is unremarkable. Visualized small bowel is unremarkable without evidence for obstruction or active inflammation. The appendix is unremarkable.Moderate wall thickening throughout the colon. Reproductive: Unremarkable Lymph nodes: No retroperitoneal or abdominal lymphadenopathy. Vascular: The aorta is not dilated. Mesenteric, renal and iliac arteries are patent. Peritoneum: No free intraperitoneal air or fluid. No acute inflammation. Abdominal wall: Severe scoliosis of the thoracolumbar spine. CT/CT abdomen pelvis w con IMPRESSION: Wall thickening throughout the colon suggesting inflammatory or infectious colitis. Electronically authenticated by: CARA DASILVA Date: 05/22/2024 20:08
--- NOTE | 2024-05-22 16:23 | ED.ABDPAIN1 ---
HPI - Abdominal Pain General Chief Complaint: Abdominal Pain Stated Complaint: Abdominal Pain Time Seen by Provider: 05/22/24 16:13 Source: patient Mode of arrival: walk-in Limitations: no limitations History of Present Illness HPI narrative: 49-year-old female presents for upper abdominal pain which started over the past day or 2. She has had nausea and vomiting today but no diarrhea and no hematemesis. No fever or trauma. She has a history of colitis and pancreatitis. The pain is moderate to severe and continuous. No dysuria hematuria or back pain Related Data Home Medications ?Medication ?Instructions ?Recorded ?Confirmed escitalopram oxalate 5 mg tablet 5 mg PO DAILY 12/24/23 05/22/24 dicyclomine 20 mg tablet 20 mg PO BID 02/14/24 05/22/24 Allergies Allergy/AdvReac Type Severity Reaction Status Date / Time metronidazole [From Flagyl] AdvReac Intermediate Abdominal Verified 05/22/24 16:14 Pain Review of Systems ROS Narrative A ten point review of systems is negative except as noted above. [facility] Medical History (Updated 05/22/24 @ 18:39 by Will Castañeda MD) Intractable nausea and vomiting ?R11.2 - Nausea with vomiting, unspecified (ICD-10) Intractable abdominal pain ?R10.9 - Unspecified abdominal pain (ICD-10) Depression ?F32.A - Depression, unspecified (ICD-10) Colitis ?K52.9 - Noninfective gastroenteritis and colitis, unspecified (ICD-10) Acute proctitis ?K62.89 - Other specified diseases of anus and rectum (ICD-10) 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 of left artificial elbow joint (ICD-10) Scoliosis ?M41.9 - Scoliosis, unspecified (ICD-10) Surgical History Previous back surgery ?Z98.890 - Other specified postprocedural states (ICD-10) Family History Mother Family history of CHF (congestive heart failure) Family history of cancer Family history of hypertension Family history of myocardial infarction Family history of stroke Father Family history of cancer Social History Within the past year, how often did you have a drink containing alcohol: monthly or less Within the past year, how often did you have six or more drinks on one occasion: less than monthly Smoking status: Former smoker Non-prescribed substance use: cannabis (any form) Previous occupational history: Does not Work Known occupational exposures/hazards: No Highest level of school completed/degree received: some college, no degree Do you want help with school or training: No Are you now , , , , never or living with a partner: never In a typical week, how many times do you talk on the telephone with family, friends, or neighbors: 3 or more times per week How often do you get together with friends or relatives: 3 or more times per week How often do you attend confucianism or anglican services: never Do you belong to any clubs or organizations such as confucianism groups unions, [employer] or athletic groups, or school groups: no Total score: 1 Score interpretation: A score of less than or equal to 1 indicates the most socially isolated. Little interest or pleasure in doing things: not at all Feeling down, depressed, or hopeless: not at all Feel stressed/tense/nervous/anxious/difficulty sleeping: not at all Due to disability, difficulty making decisions: No Do you think of yourself as: straight/heterosexual Gender Identity: female Exam Narrative Exam Narrative: Nurses note and vital signs reviewed and patient is not hypoxic. General: The patient appears uncomfortable and in no apparent distress. Skin: Warm, dry, no pallor noted. There is no rash noted. Head: Normocephalic, atraumatic Eye: Normal conjunctiva, no drainage Ears, Nose, Mouth, and Throat: oral mucosa is moist. Nares patent. Cardiovascular: Regular Rate and Rhythm Respiratory: Patient is in no distress, no accessory muscle use, lungs are clear to auscultation, no wheezing, rales or rhonchi Back: non-tender GI: No tenderness across lower abdomen. There is tenderness across the upper abdomen including the epigastric area. Musculoskeletal: The patient has no evidence of calf tenderness, no pitting edema, symmetrical pulses noted bilaterally Neurological: A&O, normal speech Psychiatric: Cooperative Constitutional Vital Signs, click to edit/add: Last Vital Signs Temp 97.8 F 05/22/24 16:14 Pulse 61 05/22/24 16:14 Resp 18 05/22/24 16:14 BP 152/92 H 05/22/24 16:14 Pulse Ox 100 05/22/24 16:14 O2 Del Method Room Air 05/22/24 16:14 Course Vital Signs Vital signs: Vital Signs Temperature 97.8 F 05/22/24 16:14 Pulse Rate 61 05/22/24 16:14 Respiratory Rate 18 05/22/24 16:14 Blood Pressure 152/92 H 05/22/24 16:14 Pulse Oximetry 100 05/22/24 16:14 Oxygen Delivery Method Room Air 05/22/24 16:14 Temperature 97.8 F 05/22/24 16:14 Pulse Rate 61 05/22/24 16:14 Respiratory Rate 18 05/22/24 16:14 Blood Pressure 152/92 H 05/22/24 16:14 Pulse Oximetry 100 05/22/24 16:14 Oxygen Delivery Method Room Air 05/22/24 16:14 MDM - Abdominal Pain MDM Narrative Medical decision making narrative: Blood work is nonspecific. WBC is normal. Urinalysis is pending and CT of the abdomen is pending as well. The patient is signed out to Dr. Proctor at change of shift. Differential Diagnosis Differential diagnosis: Likely abdominal pain, constipation, diverticulitis, gastroenteritis, pancreatitis and other (Colitis) Lab Data Attestation: I reviewed the patient's lab results. Labs: Lab Results 05/22/24 Range/Units 16:23 WBC 9.2 (4.0-11.0) 10^3/uL RBC 4.45 (4.20-5.40) 10^6/uL Hgb 11.0 L (12.0-16.0) g/dL Hct 35.4 L (36.0-48.0) % MCV 79.6 L (81.0-99.0) fL MCH 24.7 L (26.7-34.0) pg MCHC 31.1 (29.9-35.2) g/dL RDW 14.8 (11.0-15.0) % Plt Count 279 (150-450) 10^3/uL MPV 10.0 (9.5-13.5) fL Neut % (Auto) 76.1 H (43.0-75.0) % Lymph % (Auto) 17.2 L (20.5-60.0) % [place] % (Auto) 4.2 (1.7-12.0) % Eos % (Auto) 1.5 (0.9-7.0) % Baso % (Auto) 0.7 (0.2-2.0) % Neut # (Auto) 7.0 H (1.4-6.5) 10^3/uL Lymph # (Auto) 1.6 (1.2-3.8) 10^3/uL [place] # (Auto) 0.4 (0.3-0.8) 10^3/uL Eos # (Auto) 0.1 (0.0-0.7) 10^3/uL Baso # (Auto) 0.1 (0.0-0.1) 10^3/uL Abs Immat Gran (auto) 0.03 (0.00-0.03) 10^3/uL Imm/Tot Granulo (auto) 0.3 (0.0-0.5) % Sodium 136 (136-145) mmol/L Potassium 3.5 (3.5-5.1) mmol/L Chloride 101 (98-107) mmol/L Carbon Dioxide 29.2 (21.0-32.0) mmol/L Anion Gap 9.3 BUN 7.0 (7.0-18.0) mg/dL Creatinine 1.02 (0.55-1.02) mg/dL Est GFR ( Amer) >60 (>=60) Est GFR (Non-Af Amer) 58 L (>=60) BUN/Creatinine Ratio 6.9 Glucose 98 (74-106) mg/dL Calcium 9.3 (8.5-10.1) mg/dL Total Bilirubin 0.6 (0.2-1.0) mg/dL Direct Bilirubin 0.1 (0.0-0.2) mg/dL AST 20 (15-37) U/L ALT 17 (14-59) U/L Alkaline Phosphatase 78 (46-116) U/L Total Protein 8.2 (6.4-8.2) g/dL Albumin 3.7 (3.4-5.0) g/dL Globulin 4.5 g/dL Albumin/Globulin Ratio 0.8 Amylase 90 (25-115) U/L Lipase 49.0 (16.0-77.0) U/L Serum HCG, Qual Negative (NEGATIVE) Discharge Plan Discharge Patient Disposition: Still a Patient
[2024-05-22 16:32] LABS: Basophils Absolute Auto 0.1 10^3/uL (0.0-0.1); Basophils Percent Auto 0.7 % (0.2-2.0); Eosinophils Absolute Auto 0.1 10^3/uL (0.0-0.7); Eosinophils Percent Auto 1.5 % (0.9-7.0); Hematocrit 35.4 % (36.0-48.0); Immature Granulocytes Abs Auto 0.03 10^3/uL (0.00-0.03); Immature Granulocytes Pct Auto 0.3 % (0.0-0.5); Lymphocytes Absolute Auto 1.6 10^3/uL (1.2-3.8); Lymphocytes Percent Auto 17.2 % (20.5-60.0); Mean Corpuscular HGB Conc 31.1 g/dL (29.9-35.2); Mean Corpuscular Hemoglobin 24.7 pg (26.7-34.0); Mean Corpuscular Volume 79.6 fL (81.0-99.0); Monocytes Absolute Auto 0.4 10^3/uL (0.3-0.8); Monocytes Percent Auto 4.2 % (1.7-12.0); Neutrophils Percent Auto 76.1 % (43.0-75.0); Platelet Count 279 10^3/uL (150-450); Red Blood Count 4.45 10^6/uL (4.20-5.40); Red Cell Distribution Width 14.8 % (11.0-15.0); White Blood Count 9.2 10^3/uL (4.0-11.0)
[2024-05-22] MEDS: ONDANSETRON PF 4 MG/2 ML VIAL IV ×3 (16:34→18:22)
[2024-05-22] MEDS: 0.9 % SODIUM CHLORIDE 1,000 ML 1000 ML IV (16:34)
[2024-05-22] MEDS: MORPHINE SULFATE 4 MG/ML VIAL IV ×2 (16:34→18:22)
[2024-05-22 16:47] LABS: Alanine Aminotransferase 17 U/L (14-59); Albumin Globulin Ratio 0.8; Albumin Level 3.7 g/dL (3.4-5.0); Alkaline Phosphatase 78 U/L (46-116); Amylase 90 U/L (25-115); Anion Gap 9.3; Aspartate Amino Transferase 20 U/L (15-37); BUN Creatinine Ratio 6.9; Bilirubin Direct 0.1 mg/dL (0.0-0.2); Bilirubin Total 0.6 mg/dL (0.2-1.0); Calcium 9.3 mg/dL (8.5-10.1); Carbon Dioxide 29.2 mmol/L (21.0-32.0); Chloride 101 mmol/L (98-107); Estimated GFR (African America >60 (>=60); Estimated GFR (Non-African Ame 58 (>=60); Globulin 4.5 g/dL; Glucose 98 mg/dL (74-106); Potassium 3.5 mmol/L (3.5-5.1); Sodium 136 mmol/L (136-145); Total Protein 8.2 g/dL (6.4-8.2)
--- OUTSIDE RECORDS SUMMARY | 2024-05-22 17:37 | XMS_ITS | CCD ---
Author Organization [facility] Care Team Providers Care Dress Marker Name Role Phone PANCHITO JUAREZ Admitting Unavailable PANCHITO JUAREZ Attending Unavailable LEONEL GARCIA Primary Care Unavailable PANCHITO JUAREZ Consulting Unavailable CLARK THOMAS Consulting Unavailable KAYLIN WEBSTER Consulting Unavailable QUEENIES, ANDREW Reyes Referring Unavailable KUNS, ANDREW Reyes Primary Care Unavailable YUHAS, GEOVANNI Machado Primary Care Unavailable RAHMANCLIVE SCALES Attending Unavailable YUHAS, GEOVANNI Machado Referring Unavailable YUHAS, GEOVANNI Machado Primary Care Unavailable YUHAS, GEOVANNI Machado Admitting Unavailable YUHAS, GEOVANNI Machado Attending Unavailable YUHAS, GEOVANNI Machado Primary Care Unavailable KUNS, ANDREW ESPINAL Attending Unavailable KUNS, ANDREW ESPINAL Referring Unavailable KUNS, ANDREW ESPINAL Primary Care Unavailable KUNS, ANDREW ESPINAL Attending Unavailable KUNS, ANDREW ESPINAL Referring Unavailable KUNS, ANDREW ESPINAL Primary Care Unavailable YUHAS, GEOVANNI Machado Attending Unavailable YUHAS, GEOVANNI Machado Referring Unavailable YUHAS, GEOVANNI Machado Primary Care Unavailable YUHAS, GEOVANNI Machado Attending Unavailable YUHAS, GEOVANNI Machado Referring Unavailable YUHAS, GEOVANNI Machado Primary Care Unavailable YUHAS, GEOVANNI Machado Attending Unavailable YUHAS, GEOVANNI Machado Referring Unavailable YUHAS, GEOVANNI Jeannette Primary Care Unavailable Allergies Allergy Classification Reported Allergen(s) Allergy Type Date of Onset Reaction(s) Facility (2 sources) metroNIDAZOLE; Translations: [METRONIDAZOLE] Drug Allergy 01-27-2024 [facility] Rep[facility] Problems Active Problems Problem Classification Problem Date Documented Date Episodic/Chronic Abdominal pain (1 source) Abdominal pain Onset: 02-10-2024 Episodic Chronic obstructive pulmonary disease and bronchiectasis (1 source) Bronchitis, not specified as acute or chronic; Translations: [BRONCHITIS NOT SPEC ACUTE/CHRON] Onset: 08-29-2019 Episodic Fever of unknown origin (1 source) Fever, unspecified; Translations: [FEVER UNSPECIFIED] Onset: 08-29-2019 Episodic Intestinal infection (1 source) Enterocolitis due to Clostridium difficile, not specified as recurrent; Translations: [Enterocolitis due to Clostridium difficile, not specified as recurrent] Onset: 03-08-2024 Episodic Mood disorders (1 source) Major depressive disorder, single episode, unspecified; Translations: [Major depressive disorder, single episode, unspecified] Onset: 01-07-2024 Chronic Nausea and vomiting (1 source) Nausea with vomiting, unspecified; Translations: [Nausea with vomiting, unspecified] Onset: 02-10-2024 Episodic Noninfectious gastroenteritis (3 sources) Noninfective gastroenteritis and colitis, unspecified; Translations: [Colitis] Onset: 01-07-2024 Episodic Other acquired deformities (1 source) Scoliosis, unspecified; Translations: [SCOLIOSIS UNSPECIFIED] Onset: 08-29-2019 Chronic Other circulatory disease (1 source) Hypotension, unspecified; Translations: [Hypotension, unspecified] Onset: 02-08-2024 Episodic Other lower respiratory disease (4 sources) Cough; Translations: [COUGH] Onset: 08-27-2019 Episodic Other upper respiratory infections (1 source) Chronic sinusitis, unspecified; Translations: [CHRONIC SINUSITIS UNSPECIFIED] Onset: 08-29-2019 Chronic Screening and history of mental health and substance abuse codes (1 source) Personal history of nicotine dependence; Translations: [PERSONAL HISTORY OF NICOTINE DEPEND] Onset: 08-29-2019 Episodic Unclassified (1 source) Vomitting Onset: 02-10-2024 Unclassified (1 source) Hospital Follow-up Onset: 01-27-2024 Past or Other Problems Problem Classification Problem Date Documented Da te Episodic/Chronic Fluid and electrolyte disorders (2 sources) Hypokalemia; Translations: [Hypokalemia] Onset: 01-07-2024 Episodic Other screening for suspected conditions (not mental disorders or infectious disease) (1 source) Encounter for screening for malignant neoplasm of colon; Translations: [Encounter for screening for malignant neoplasm of colon] Onset: 01-07-2024 Episodic Results Test Name Value Interpretation Reference Range Facility Surgical Pathologyon 024 Surgical Pathology Normal [facility] Comment on above: Result Comment: [facility] [address] [place] [address] Surgical Pathology Consultation Patient Name:KELLI LAKE:1975 (Age: 48)Gender:FTaken:4Reported:4Physician(s):Geovanni Rivers MD ([phone])Copy To: Rec. #:[id number]: #[id number] Final Pathologic Diagnosis 1. Transverse colon biopsy: Focal active colitis (see comments). 2. Sigmoid colon biopsy: Mildly active chronic colitis with cryptitis, mucin depletion, basal lymphoplasmacytosis and crypt architectural alteration (see comment). Comments: There were no granulomas nor evidence of dysplasia in any of the submitted biopsy material. Sections of part 1 show isolated focus of neutrophilic infiltrate and cryptitis in the background of preserved crypt architecture. In part 2, there is evidence of chronicity, represented by areas of crypt architectural distortion. The differential diagnosis for the observed findings include infectious or medication induced (in particular, NSAIDs) colitis, as well as ischemic injury and idiopathic inflammatory bowel disease, among others. Clinical and endoscopic correlation recommended. Report Electronically Signed Out ao/03/09/2024lian Camara MD Interpretation performed at [facility], [address] [place] [address], License number: [id number]. Clinical History Colitis. Gross Description 1. Received in formalin labeled ALEKSANDRA, #1: Transverse BX are 3 edmondson bits/strips of soft tissue, ranging from 0.5-0.9 cm in greatest dimension. Filtered and submitted in a single cassette. (1, ns, [id number], m7) MG 2. Received in formalin labeled MICHELLEINGER, #2: Sigmoid are 5 edmondson bits of soft tissue, ranging from 0.2-0.3 cm in greatest dimension. Filtered and submitted in a single cassette. (1, ns, [id number], m7) MG mjg/4AO Specimen(s) Received 1: Transverse colon biopsies 2: Sigmoid colon biopsy Fee Codes(s): 1; 87288 2; 01366 CBC AND AUTO DIFFon 02-10-20 ABSOLUTE BASOPHIL 0.0 X10E9/L Normal 0.0-0.2 [facility] Comment on above: Performed By: #### Marguerite JASSO, 62170-5, CMP, 0-3 #### [facility] ([id number]) [address] [place] [address] 32857 ABSOLUTE NEUTROPHIL 11.5 X10E9/L High 1.5-6.6 [facility] Comment on above: Performed By: #### Marguerite JASSO, 51534-6, CMP, 3039-3 #### [facility] ([id number]) [address] [place] [address] 43086 Basophils/100 WBC (Bld) 0.2 % Normal [facility] Comment on above: Performed By: #### Marguerite JASSO, 30278-4, CMP, 3039-3 #### [facility] ([id number]) [address] [place] [address] 38034 Eosinophils (Bld) [#/Vol] 0.0 10*3/uL Normal 0.0-0.4 [facility] Comment on above: Performed By: #### Marguerite JASSO, 61844-6, CMP, 3039-3 #### [facility] ([id number]) [address] [place] [address] 09043 Eosinophils/100 WBC (Bld) 0.1 % Normal [facility] Comment on above: Performed By: #### Marguerite JASSO, 49069-8, CMP, 3039-3 #### [facility] ([id number]) [address] [place] [address] 20875 Erythrocyte distribution width (RBC) [Ratio] 19.1 % High 11.5-15.0 [facility] Comment on above: Performed By: #### Marguerite JASSO, 16716-7, CMP, 0-3 #### [facility] ([id number]) [address] [place] [address] 05944 Hematocrit (Bld) [Volume fraction] 36.4 % Normal 35-47 [facility] Comment on above: Performed By: #### Marguerite JASSO, 19729-0, CMP, 3040-3 #### [facility] ([id number]) [address] [place] [address] 30521 Hemoglobin (Bld) [Mass/Vol] 12.2 g/dL Normal 11.7-15.5 [facility] Comment on above: Performed By: #### Marguerite JASSO, 09757-0, CMP, 0-3 #### [facility] ([id number]) [address] [place] [address] 56508 Lymphocytes (Bld) [#/Vol] 0.7 10*3/uL Low 1.0-3.5 [facility] Comment on above: Performed By: #### Marguerite JASSO, 17765-3, CMP, 3039-3 #### [facility] ([id number]) [address] [place] [address] 09383 Lymphocytes/100 WBC (Bld) 5.7 % Normal [facility] Comment on above: Performed By: #### Marguerite JASSO, 89811-1, CMP, 0-3 #### [facility] ([id number]) [address] [place] [address] 05310 MCH (RBC) [Entitic mass] 24.9 pg Low 27-34 [facility] Comment on above: Performed By: #### Marguerite JASSO, 62477-8, CMP, 0-3 #### [facility] ([id number]) [address] [place] [address] 36169 MCHC (RBC) [Mass/Vol] 33.5 g/dL Normal 32-36 [facility] Comment on above: Performed By: #### Marguerite JASSO, 94249-8, CMP, 3040-3 #### [facility] ([id number]) [address] [place] [address] MCV (RBC) [Entitic vol] 74 fL Low 80-100 [facility] Comment on above: Performed By: #### Marguerite JASSO, 51863-5, CMP, 3040-3 #### [facility] ([id number]) [address] [place] [address] 16483 Monocytes (Bld) [#/Vol] 0.4 10*3/uL Normal 0-0.9 [facility] Comment on above: Performed By: #### Marguerite JASSO, 09500-9, CMP, 3040-3 #### [facility] ([id number]) [address] [place] [address] 17229 Monocytes/100 WBC (Bld) 3.2 % Normal [facility] Comment on above: Performed By: #### Marguerite JASSO, 11536-1, CMP, 3040-3 #### [facility] ([id number]) [address] [place] [address] [place] [address] Neutrophils/100 WBC (Bld) 90.8 % Normal [facility] Comment on above: Performed By: #### Marguerite JASSO, 08359-4, CMP, 3040-3 #### [facility] ([id number]) [address] [place] [address] 05274 Platelet mean volume (Bld) [Entitic vol] 8.1 fL Normal 7-12 [facility] Comment on above: Performed By: #### Marguerite JASSO, 06152-7, CMP, 3040-3 #### [facility] ([id number]) [address] [place] [address] 29206 Platelets (Bld) [#/Vol] 435 10*3/uL Normal 150-450 [facility] Comment on above: Performed By: #### Marguerite JASSO, 03403-1, CMP, 3040-3 #### [facility] ([id number]) [address] [place] [address] [place] [address] RBC COUNT 4.90 X10E12/L Normal 3.80-5.20 [facility] Comment on above: Performed By: #### C BCA, 81165-1, CMP, 3040-3 #### [facility] ([id number]) [address] [place] [address] 34226 WBC (Bld) [#/Vol] 12.6 10*3/uL High 4.0-11.0 [facility] Comment on above: Performed By: #### C BCA, 33030-6, CMP, 3040-3 #### [facility] ([id number]) [address] [place] [address] 24990 COMPREHENSIVE METABOLIC PANE Hoang 02-10-2024 Albumin [Mass/Vol] 4.1 g/dL Normal 3.2-5.3 [facility] Comment on above: Performed By: #### C BCA, 39457-1, CMP, 3040-3 #### [facility] ([id number]) [address] [place] [address] 12989 ALP [Catalytic activity/Vol] 53 U/L Normal 39-130 [facility] Comment on above: Performed By: #### C BCA, 30384-2, CMP, 3040-3 #### [facility] ([id number]) [address] [place] [address] 64549 ALT [Catalytic activity/Vol] 10 U/L Normal 0-31 [facility] Comment on above: Performed By: #### C BCA, 48214-0, CMP, 3040-3 #### [facility] ([id number]) [address] [place] [address] 19850 Anion gap [Moles/Vol] 8 mmol/L Normal 5-15 [facility] Comment on above: Performed By: #### C BCA, 87575-0, CMP, 3040-3 #### [facility] ([id number]) [address] [place] [address] 84789 AST [Catalytic activity/Vol] 17 U/L Normal 0-41 [facility] Comment on above: Performed By: #### C BCA, 80623-6, CMP, 3040-3 #### [facility] ([id number]) [address] [place] [address] 36094 Bilirubin [Mass/Vol] 1.0 mg/dL Normal 0.3-1.2 [facility] Comment on above: Performed By: #### C BCA, 63498-1, CMP, 3040-3 #### [facility] ([id number]) [address] [place] [address] 68172 Calcium [Mass/Vol] 8.5 mg/dL Normal 8.5-10.5 [facility] Comment on above: Performed By: #### C BCA, 52335-7, CMP, 3040-3 #### [facility] ([id number]) [address] [place] [address] 59854 Chloride [Moles/Vol] 99 mmol/L Normal 98-109 [facility] Comment on above: Performed By: #### C BCA, 17860-7, CMP, 3040-3 #### [facility] ([id number]) [address] [place] [address] 36825 CO2 [Moles/Vol] 24 mmol/L Normal 22-32 [facility] Comment on above: Performed By: #### C BCA, 06599-4, CMP, 3040-3 #### [facility] ([id number]) [address] [place] [address] 09732 Creatinine [Mass/Vol] 0.71 mg/dL Normal 0.40-1.00 [facility] Comment on above: Result Comment: METH OD TRACEABLE TO IDMS STANDARD Performed By: #### C BCA, 52729-8, CMP, 3040-3 #### [facility] ([id number]) [address] [place] [address] 92757 eGFR (CKD-EPI) NON-RACE DEPENDENT >90 Normal >59 [facility] Comment on above: Result Comment: Reported eGFR is based on the CKD-EPI 2020 equation that does not use a race coefficient. Performed By: #### C BCA, 39836-5, CMP, 3040-3 #### [facility] ([id number]) [address] [place] [address] 31171 Glucose [Mass/Vol] 114 mg/dL High 65-99 [facility] Comment on above: Performed By: #### C BCA, 52658-3, CMP, 3040-3 #### [facility] ([id number]) [address] [place] [address] 71894 Potassium [Moles/Vol] 3.7 mmol/L Normal 3.5-5.0 [facility] Comment on above: Performed By: #### C BCA, 24170-3, CMP, 3040-3 #### [facility] ([id number]) [address] [place] [address] 33103 Protein [Mass/Vol] 7.6 g/dL Normal 6.0-8.0 [facility] Comment on above: Performed By: #### C BCA, 70312-3, CMP, 3040-3 #### [facility] ([id number]) [address] [place] [address] 43705 Sodium [Moles/Vol] 131 mmol/L Low 134-146 [facility] Comment on above: Performed By: #### C BCA, 55504-1, CMP, 3040-3 #### [facility] ([id number]) [address] [place] [address] 08846 Urea nitrogen [Mass/Vol] 11 mg/dL Normal 5-23 [facility] Comment on above: Performed By: #### C BCA, 44942-2, CMP, 3040-3 #### [facility] ([id number]) [address] [place] [address] 49885 HCG ( test) Ql (U)o n 02-10-2024 Beta HCG ( test) Ql (U) Negative Normal NEG [facility] Comment on above: Performed By: #### 2 106-3 #### [facility] ([id number]) [address] [place] [address] 45914 LIPASEon 02-10-2024 Lipase [Catalytic activity/Vol] 42 U/L High 17-40 [facility] Comment on above: Performed By: #### C BCA, 31410-9, CMP, 3040-3 #### [facility] ([id number]) [address] [place] [address] 36891 Lactate (P caroline) [Moles/Vol]o n 02-10-2024 LACTATE W/REFLEX 1.1 mmol/L Normal 0.4-2.0 [facility] Comment on above: Result Comment: Result did not trigger repeat Lactate, re-order if needed. Performed By: #### C BCA, 02944-8, CMP, 3040-3 #### [facility] ([id number]) [address] [place] [address] 75509 URN MACROSCOPIC NURon 2023 BILIRUBIN MEÑO Small Abnormal NEG [facility] Comment on above: Performed By: #### N UM #### [facility] ([id number]) [address] [place] [address] 71419 BLOOD/HGB MEÑO Negative Normal NEG [facility] Comment on above: Performed By: #### N UM #### [facility] ([id number]) [address] [place] [address] 04239 GLUCOSE MEÑO Negative Normal NEG [facility] Comment on above: Performed By: #### N UM #### [facility] ([id number]) [address] [place] [address] 23391 KETONES MEÑO 80 mg/dL Abnormal NEG [facility] Comment on above: Performed By: #### N UM #### [facility] ([id number]) [address] [place] [address] 10440 LEUKOCYTE ESTERASE MEÑO Negative Normal NEG [facility] Comment on above: Performed By: #### N UM #### [facility] ([id number]) [address] [place] [address] 70663 NITRITE MEÑO Negative Normal NEG [facility] Comment on above: Performed By: #### N UM #### [facility] ([id number]) [address] [place] [address] 01863 PH MEÑO 6.0 Normal 5.0-8.5 [facility] Comment on above: Performed By: #### N UM #### [facility] ([id number]) [address] [place] [address] 46329 PROTEIN MEÑO 30 mg/dL Abnormal NEG [facility] Comment on above: Performed By: #### N UM #### [facility] ([id number]) [address] [place] [address] 90910 SPECIFIC GRAVITY MEÑO 1.025 Normal 1.003-1.035 [facility] Comment on above: Performed By: #### N UM #### [facility] ([id number]) [address] [place] [address] 11695 UROBILINOGEN MEÑO 0.2 eu/dL Normal <1.1 [facility] Comment on above: Performed By: #### N UM #### [facility] ([id number]) [address] [place] [address] 43128 BASIC METABOLIC PANLon 01-06 Anion gap [Moles/Vol] 8 mmol/L Normal 5-15 [facility] Comment on above: Performed By: #### B MP #### [facility] ([id number]) [address] [place] [address] Calcium [Mass/Vol] 8.6 mg/dL Normal 8.5-10.5 [facility] Comment on above: Performed By: #### B MP #### [facility] ([id number]) [address] [place] [address] Chloride [Moles/Vol] 105 mmol/L Normal 98-109 [facility] Comment on above: Performed By: #### B MP #### [facility] ([id number]) [address] [place] [address] CO2 [Moles/Vol] 25 mmol/L Normal 22-32 [facility] Comment on above: Performed By: #### B MP #### [facility] ([id number]) [address] [place] [address] Creatinine [Mass/Vol] 0.74 mg/dL Normal 0.40-1.00 [facility] Comment on above: Result Comment: METH OD TRACEABLE TO IDMS STANDARD Performed By: #### B MP #### [facility] ([id number]) [address] [place] [address] eGFR (CKD-EPI) NON-RACE DEPENDENT >90 Normal >59 [facility] Comment on above: Result Comment: Reported eGFR is based on the CKD-EPI 1 equation that does not use a race coefficient. Performed By: #### B MP #### [facility] ([id number]) [address] [place] [address] Glucose [Mass/Vol] 87 mg/dL Normal 65-99 [facility] Comment on above: Performed By: #### B MP #### [facility] ([id number]) [address] [place] [address] Potassium [Moles/Vol] 3.9 mmol/L Normal 3.5-5.0 [facility] Comment on above: Performed By: #### B MP #### [facility] ([id number]) [address] [place] [address] Sodium [Moles/Vol] 138 mmol/L Normal 134-146 [facility] Comment on above: Performed By: #### B MP #### [facility] ([id number]) [address] [place] [address] Urea nitrogen [Mass/Vol] 5 mg/dL Normal 5-23 [facility] Comment on above: Performed By: #### B MP #### [facility] ([id number]) [address] [facility], [address] [place] [address] INFLUENZA A AND B AGon 08-27 [facility] SEE BELOW Normal [facility] Comment on above: Result Comment: Nega tive for Flu A protein angiten. Infection due to Flu A cannot be ruled out. Flu A angiten in the sample may be below the detection limit of the test. Performed By: #### I NFLUAB #### [facility] [address] [place] [address] Jessieyamile Gandhi INFLUBNEGH SEE BELOW Normal [facility] Comment on above: Result Comment: Nega tive for Flu B protein antigen. Infection due to Flu B cannot be ruled out. Flu B antigen in the sample may be below the detection limit of the test. Performed By: #### I NFLUAB #### [facility] [address] [place] [address] Jessie Oksana INFLUENZA A AG Negative Normal NEGATIVE SEE COMMENT [facility] Comment on above: Performed By: #### I NFLUAB #### [facility] [address] [place] [address] Jessie Oksana INFLUENZA B AG Negative Normal NEGATIVE SEE COMMENT [facility] Comment on above: Performed By: #### I NFLUAB #### [facility] [address] [place] [address] Jessie Oksana INTERNAL CONTROLS Within Normal Limits Normal Wi thin Normal Limits [facility] Comment on above: Performed By: #### I NFLUAB #### [facility] [address] [place], [place] [address] Jessie Gandhi Encounters Encounter Date Encounter Type Care Provider Facility Start: 04-19-2024 End: 04-19-2024 ambulatory [facility] Start: 03-16-2024 End: 03-16-2024 ambulatory [facility] Start: 03-08-2024 End: 03-08-2024 Evaluation and management of inpatient [facility] Start: 03-07-2024 End: 03-07-2024 ambulatory [facility] Start: 02-10-2024 End: 02-10-2024 Emergency department patient visit [facility] Start: 02-08-2024 End: 02-08-2024 ambulatory [facility] Start: 01-27-2024 End: 01-27-2024 ambulatory [facility] Start: 01-07-2024 End: 01-08-[address] [facility] Start: 01-07-2024 End: 01-07-2024 ambulatory [facility] Start: 08-27-2019 End: 08-27-2019 Patient encounter procedure PANCHITO JUAREZ Facility:[facility]1 Procedures Date Procedure Procedure Detail Performing Clinician Start: 01-07-2024 Follow-up visit Follow-up [facility] Payers Date Payer Category Payer Medicaid [id number] 1975 Unknown [id number] 2.16.84 [id number] 1975 Unknown [id number] 2.16.8 [id number] 1975 Unknown [id number] 2.16.8 [id number] 1975 Unknown [id number] 2.16.8 [id number] 1975 Unknown [id number] 2.16.8 [id number] 1975 Unknown [id number] 2.16.8 [id number] 1975 Unknown [id number] 2.16.8 40.1.593290.3.579.2.1285 1975 Unknown [id number] 2.16.8 40.1.203457.3.579.2.128 1975 Unknown [id number] 2.16.8 [id number] 1975 Unknown [id number] 2.16.8 40.1.107329.3.579.2.1286 1959 Unknown [id number] Summary Purpose Family History No Family History Records FoundNo Family History Records FoundNo Family History Records FoundNo Family History Records Found Advance Directives No Advanced Directives Records FoundNo Advanced Directives Records FoundNo Advanced Directives Records FoundNo Advanced Directives Records Found Additional Source Comments INFORMATION SOURCE (unrecogn ized section and content) DATE CREATED AUTHOR 08/29/2019 [facility] [place] DATE CREATED AUTHOR AUTHOR'S ORGANIZ ATION 01/10/2024 [facility] DATE CREATED AUTHOR AUTHOR'S ORGANIZ ATION 03/11/2024 [facility] DATE CREATED AUTHOR AUTHOR'S ORGANIZ ATION 04/21/2024 [facility] FOR RECORDS PERTAINING TO PATIENTS WHO ARE [...] BE BASED ON THE PRIMARY CLINICAL RECORDS. [facility]. provides no warranty or guarantee of the accuracy or completeness of information in this document.
[2024-05-22 17:38] LABS: HCG Qualitative NEGATIVE (NEGATIVE); Internal Control Within Normal Limits
[2024-05-22 18:50] VITALS: BP 142/72; PULSE 62; O2SAT 96
[2024-05-22 19:38] LABS: Bilirubin Urine NEGATIVE (NEGATIVE); Blood Urine NEGATIVE (NEGATIVE); Clarity Urine CLEAR (CLEAR); Color Urine LT. YELLOW (YELLOW); Glucose Urine UA NEGATIVE (NEGATIVE); Ketones Urine 15 mg/dL (NEGATIVE); Leukocyte Esterase Urine NEGATIVE (NEGATIVE); Nitrite Urine NEGATIVE (NEGATIVE); Protein Urine NEGATIVE (NEG/TRACE); Specific Gravity Urine 1.015 (1.005-1.025); Urobilinogen Urine 0.2 EU/dL (0.2-1.0); pH Urine 8.5 (5.0-9.0)
[2024-05-22 19:50] LABS: Bacteria Urine NONE SEEN #/HPF (NONE SEEN); Cast Seen? NONE SEEN #/LPF (NONE SEEN); Crystals Seen? None Seen #/HPF (None Seen); Mucus Urine NONE SEEN (NONE SEEN); RBC Urine 0-2 #/HPF (0-2); Squamous Epithelial Cell Urine FEW #/LPF (NONE/RARE); Urine Culture Indicated NO
[2024-05-22 20:14] VITALS: BP 152/84; PULSE 61; O2SAT 99
[2024-05-22] MEDS: METOCLOPRAMIDE HCL 10 MG/2 ML VIAL IVP (21:09)
[2024-05-22] MEDS: METHYLPREDNISOLONE SOD SUCC PF 125 MG/2 ML VIAL IVP (21:09)
[2024-05-22] MEDS: CIPROFLOXACIN IN 5 % DEXTROSE 400 MG/200 ML PREMIX 200 MG IV (21:09)
--- OUTSIDE RECORDS SUMMARY | 2024-05-22 22:09 | XMS_ITS | CCD ---
Author Organization [facility] Care Team Providers Care Nanosystems Engineer Name Role Phone PANCHITO JUAREZ Admitting Unavailable [...] Facility Surgical Pathologyon 024 Surgical Pathology Normal [facility] Comment on above: Result Comment: [facility] [address] [place] [address] Surgical Pathology Consultation Patient Name:KELLI LAKE:1975 (Age: 48)Gender:FTaken:4Reported:4Physician(s):Geovanni Rivers MD ([phone])Copy To: Rec. #:[id number]: #[id number] Final Pathologic Diagnosis 1. Transverse colon biopsy: [...] Out ao/03/09/2024lian Camara MD Interpretation performed at [facility], [address] [place] [address], License number: [id number]. Clinical History Colitis. Gross Description 1. Received in formalin labeled ALEKSANDRA, #1: Transverse BX are 3 edmondson bits/strips of soft tissue, ranging from 0.5-0.9 cm in greatest dimension. Filtered and submitted in a single cassette. (1, ns, [id number], m7) MG 2. Received in formalin labeled MICHELLEINGER, #2: Sigmoid are 5 edmondson bits of soft tissue, ranging from 0.2-0.3 cm in greatest dimension. Filtered and submitted in a single cassette. (1, ns, [id number], m7) MG mjg/4AO Specimen(s) Received 1: Transverse colon biopsies 2: Sigmoid colon biopsy Fee Codes(s): 1; 31443 2; 29415 CBC AND AUTO DIFFon 02-10-20 ABSOLUTE BASOPHIL 0.0 X10E9/L Normal 0.0-0.2 [facility] Comment on above: Performed By: #### Marguerite JASSO, 86151-8, CMP, 0-3 #### [facility] ([id number]) [address] [place] [address] 30717 ABSOLUTE NEUTROPHIL 11.5 X10E9/L High 1.5-6.6 [facility] Comment on above: Performed By: #### Marguerite JASSO, 18098-3, CMP, 3039-3 #### [facility] ([id number]) [address] [place] [address] 30392 Basophils/100 WBC (Bld) 0.2 % Normal [facility] Comment on above: Performed By: #### Marguerite JASSO, 37237-2, CMP, 3039-3 #### [facility] ([id number]) [address] [place] [address] 51857 Eosinophils (Bld) [#/Vol] 0.0 10*3/uL Normal 0.0-0.4 [facility] Comment on above: Performed By: #### Marguerite JASSO, 28270-6, CMP, 3039-3 #### [facility] ([id number]) [address] [place] [address] 79171 Eosinophils/100 WBC (Bld) 0.1 % Normal [facility] Comment on above: Performed By: #### Marguerite JASSO, 39816-9, CMP, 3039-3 #### [facility] ([id number]) [address] [place] [address] 97522 Erythrocyte distribution width (RBC) [Ratio] 19.1 % High 11.5-15.0 [facility] Comment on above: Performed By: #### Marguerite JASSO, 18697-5, CMP, 0-3 #### [facility] ([id number]) [address] [place] [address] 20914 Hematocrit (Bld) [Volume fraction] 36.4 % Normal 35-47 [facility] Comment on above: Performed By: #### Marguerite JASSO, 08828-7, CMP, 3040-3 #### [facility] ([id number]) [address] [place] [address] 96306 Hemoglobin (Bld) [Mass/Vol] 12.2 g/dL Normal 11.7-15.5 [facility] Comment on above: Performed By: #### Marguerite JASSO, 12967-8, CMP, 0-3 #### [facility] ([id number]) [address] [place] [address] 03625 Lymphocytes (Bld) [#/Vol] 0.7 10*3/uL Low 1.0-3.5 [facility] Comment on above: Performed By: #### Marguerite JASSO, 78090-6, CMP, 3039-3 #### [facility] ([id number]) [address] [place] [address] 29448 Lymphocytes/100 WBC (Bld) 5.7 % Normal [facility] Comment on above: Performed By: #### Marguerite JASSO, 38329-9, CMP, 0-3 #### [facility] ([id number]) [address] [place] [address] 87134 MCH (RBC) [Entitic mass] 24.9 pg Low 27-34 [facility] Comment on above: Performed By: #### Marguerite JASSO, 88338-2, CMP, 0-3 #### [facility] ([id number]) [address] [place] [address] 10340 MCHC (RBC) [Mass/Vol] 33.5 g/dL Normal 32-36 [facility] Comment on above: Performed By: #### Marguerite JASSO, 54255-7, CMP, 3040-3 #### [facility] ([id number]) [address] [place] [address] MCV (RBC) [Entitic vol] 74 fL Low 80-100 [facility] Comment on above: Performed By: #### Marguerite JASSO, 34286-3, CMP, 3040-3 #### [facility] ([id number]) [address] [place] [address] 32032 Monocytes (Bld) [#/Vol] 0.4 10*3/uL Normal 0-0.9 [facility] Comment on above: Performed By: #### Marguerite JASSO, 17332-0, CMP, 3040-3 #### [facility] ([id number]) [address] [place] [address] 95753 Monocytes/100 WBC (Bld) 3.2 % Normal [facility] Comment on above: Performed By: #### Marguerite JASSO, 71432-7, CMP, 3040-3 #### [facility] ([id number]) [address] [place] [address] [place] [address] Neutrophils/100 WBC (Bld) 90.8 % Normal [facility] Comment on above: Performed By: #### Marguerite JASSO, 84150-9, CMP, 3040-3 #### [facility] ([id number]) [address] [place] [address] 11543 Platelet mean volume (Bld) [Entitic vol] 8.1 fL Normal 7-12 [facility] Comment on above: Performed By: #### Marguerite JASSO, 28951-2, CMP, 3040-3 #### [facility] ([id number]) [address] [place] [address] 41209 Platelets (Bld) [#/Vol] 435 10*3/uL Normal 150-450 [facility] Comment on above: Performed By: #### Marguerite JASSO, 90884-8, CMP, 3040-3 #### [facility] ([id number]) [address] [place] [address] [place] [address] RBC COUNT 4.90 X10E12/L Normal 3.80-5.20 [facility] Comment on above: Performed By: #### C BCA, 67947-1, CMP, 3040-3 #### [facility] ([id number]) [address] [place] [address] 77811 WBC (Bld) [#/Vol] 12.6 10*3/uL High 4.0-11.0 [facility] Comment on above: Performed By: #### C BCA, 46089-8, CMP, 3040-3 #### [facility] ([id number]) [address] [place] [address] 76769 COMPREHENSIVE METABOLIC PANE Hoang 02-10-2024 Albumin [Mass/Vol] 4.1 g/dL Normal 3.2-5.3 [facility] Comment on above: Performed By: #### C BCA, 58841-1, CMP, 3040-3 #### [facility] ([id number]) [address] [place] [address] 43346 ALP [Catalytic activity/Vol] 53 U/L Normal 39-130 [facility] Comment on above: Performed By: #### C BCA, 89528-6, CMP, 3040-3 #### [facility] ([id number]) [address] [place] [address] 82751 ALT [Catalytic activity/Vol] 10 U/L Normal 0-31 [facility] Comment on above: Performed By: #### C BCA, 47367-7, CMP, 3040-3 #### [facility] ([id number]) [address] [place] [address] 60692 Anion gap [Moles/Vol] 8 mmol/L Normal 5-15 [facility] Comment on above: Performed By: #### C BCA, 30417-9, CMP, 3040-3 #### [facility] ([id number]) [address] [place] [address] 66462 AST [Catalytic activity/Vol] 17 U/L Normal 0-41 [facility] Comment on above: Performed By: #### C BCA, 44031-0, CMP, 3040-3 #### [facility] ([id number]) [address] [place] [address] 38365 Bilirubin [Mass/Vol] 1.0 mg/dL Normal 0.3-1.2 [facility] Comment on above: Performed By: #### C BCA, 11823-7, CMP, 3040-3 #### [facility] ([id number]) [address] [place] [address] 73400 Calcium [Mass/Vol] 8.5 mg/dL Normal 8.5-10.5 [facility] Comment on above: Performed By: #### C BCA, 26828-1, CMP, 3040-3 #### [facility] ([id number]) [address] [place] [address] 13870 Chloride [Moles/Vol] 99 mmol/L Normal 98-109 [facility] Comment on above: Performed By: #### C BCA, 76695-9, CMP, 3040-3 #### [facility] ([id number]) [address] [place] [address] 84137 CO2 [Moles/Vol] 24 mmol/L Normal 22-32 [facility] Comment on above: Performed By: #### C BCA, 84623-8, CMP, 3040-3 #### [facility] ([id number]) [address] [place] [address] 51444 Creatinine [Mass/Vol] 0.71 mg/dL Normal 0.40-1.00 [facility] Comment on above: Result Comment: METH OD TRACEABLE TO IDMS STANDARD Performed By: #### C BCA, 40300-5, CMP, 3040-3 #### [facility] ([id number]) [address] [place] [address] 64181 eGFR (CKD-EPI) NON-RACE DEPENDENT >90 Normal >59 [facility] Comment on above: Result Comment: Reported eGFR is based on the CKD-EPI 2020 equation that does not use a race coefficient. Performed By: #### C BCA, 06440-3, CMP, 3040-3 #### [facility] ([id number]) [address] [place] [address] 88355 Glucose [Mass/Vol] 114 mg/dL High 65-99 [facility] Comment on above: Performed By: #### C BCA, 34571-1, CMP, 3040-3 #### [facility] ([id number]) [address] [place] [address] 16814 Potassium [Moles/Vol] 3.7 mmol/L Normal 3.5-5.0 [facility] Comment on above: Performed By: #### C BCA, 95856-4, CMP, 3040-3 #### [facility] ([id number]) [address] [place] [address] 01967 Protein [Mass/Vol] 7.6 g/dL Normal 6.0-8.0 [facility] Comment on above: Performed By: #### C BCA, 57927-7, CMP, 3040-3 #### [facility] ([id number]) [address] [place] [address] 80782 Sodium [Moles/Vol] 131 mmol/L Low 134-146 [facility] Comment on above: Performed By: #### C BCA, 29073-9, CMP, 3040-3 #### [facility] ([id number]) [address] [place] [address] 49808 Urea nitrogen [Mass/Vol] 11 mg/dL Normal 5-23 [facility] Comment on above: Performed By: #### C BCA, 08161-5, CMP, 3040-3 #### [facility] ([id number]) [address] [place] [address] 06873 HCG ( test) Ql (U)o n 02-10-2024 Beta HCG ( test) Ql (U) Negative Normal NEG [facility] Comment on above: Performed By: #### 2 106-3 #### [facility] ([id number]) [address] [place] [address] 14232 LIPASEon 02-10-2024 Lipase [Catalytic activity/Vol] 42 U/L High 17-40 [facility] Comment on above: Performed By: #### C BCA, 86529-6, CMP, 3040-3 #### [facility] ([id number]) [address] [place] [address] 55689 Lactate (P caroline) [Moles/Vol]o n 02-10-2024 LACTATE W/REFLEX 1.1 mmol/L Normal 0.4-2.0 [facility] Comment on above: Result Comment: Result did not trigger repeat Lactate, re-order if needed. Performed By: #### C BCA, 21412-5, CMP, 3040-3 #### [facility] ([id number]) [address] [place] [address] 63980 URN MACROSCOPIC NURon 2023 BILIRUBIN MEÑO Small Abnormal NEG [facility] Comment on above: Performed By: #### N UM #### [facility] ([id number]) [address] [place] [address] 11564 BLOOD/HGB MEÑO Negative Normal NEG [facility] Comment on above: Performed By: #### N UM #### [facility] ([id number]) [address] [place] [address] 82378 GLUCOSE MEÑO Negative Normal NEG [facility] Comment on above: Performed By: #### N UM #### [facility] ([id number]) [address] [place] [address] 07600 KETONES MEÑO 80 mg/dL Abnormal NEG [facility] Comment on above: Performed By: #### N UM #### [facility] ([id number]) [address] [place] [address] 25311 LEUKOCYTE ESTERASE MEÑO Negative Normal NEG [facility] Comment on above: Performed By: #### N UM #### [facility] ([id number]) [address] [place] [address] 77461 NITRITE MEÑO Negative Normal NEG [facility] Comment on above: Performed By: #### N UM #### [facility] ([id number]) [address] [place] [address] 23432 PH MEÑO 6.0 Normal 5.0-8.5 [facility] Comment on above: Performed By: #### N UM #### [facility] ([id number]) [address] [place] [address] 01210 PROTEIN MEÑO 30 mg/dL Abnormal NEG [facility] Comment on above: Performed By: #### N UM #### [facility] ([id number]) [address] [place] [address] 95490 SPECIFIC GRAVITY MEÑO 1.025 Normal 1.003-1.035 [facility] Comment on above: Performed By: #### N UM #### [facility] ([id number]) [address] [place] [address] 39320 UROBILINOGEN MEÑO 0.2 eu/dL Normal <1.1 [facility] Comment on above: Performed By: #### N UM #### [facility] ([id number]) [address] [place] [address] 75289 BASIC METABOLIC PANLon 01-06 Anion gap [Moles/Vol] 8 mmol/L Normal 5-15 [facility] Comment on above: Performed By: #### B MP #### [facility] ([id number]) [address] [place] [address] Calcium [Mass/Vol] 8.6 mg/dL Normal 8.5-10.5 [facility] Comment on above: Performed By: #### B MP #### [facility] ([id number]) [address] [place] [address] Chloride [Moles/Vol] 105 mmol/L Normal 98-109 [facility] Comment on above: Performed By: #### B MP #### [facility] ([id number]) [address] [place] [address] CO2 [Moles/Vol] 25 mmol/L Normal 22-32 [facility] Comment on above: Performed By: #### B MP #### [facility] ([id number]) [address] [place] [address] Creatinine [Mass/Vol] 0.74 mg/dL Normal 0.40-1.00 [facility] Comment on above: Result Comment: METH OD TRACEABLE TO IDMS STANDARD Performed By: #### B MP #### [facility] ([id number]) [address] [place] [address] eGFR (CKD-EPI) NON-RACE DEPENDENT >90 Normal >59 [facility] Comment on above: Result Comment: Reported eGFR is based on the CKD-EPI 1 equation that does not use a race coefficient. Performed By: #### B MP #### [facility] ([id number]) [address], [address] [place] [address] Glucose [Mass/Vol] 87 mg/dL Normal 65-99 [facility] Comment on above: Performed By: #### B MP #### [facility] ([id number]) [address] [place] [address] Potassium [Moles/Vol] 3.9 mmol/L Normal 3.5-5.0 [facility] Comment on above: Performed By: #### B MP #### [facility] ([id number]) [address] [place] [address] Sodium [Moles/Vol] 138 mmol/L Normal 134-146 [facility] Comment on above: Performed By: #### B MP #### [facility] ([id number]) [address] [place] [address] Urea nitrogen [Mass/Vol] 5 mg/dL Normal 5-23 [facility] Comment on above: Performed By: #### B MP #### [facility] ([id number]) [address] [facility], [address] [place] [address] INFLUENZA A AND B AGon 08-27 [facility] SEE BELOW Normal [facility] Comment on above: Result Comment: Nega tive for Flu A protein angiten. Infection due to Flu A cannot be ruled out. Flu A angiten in the sample may be below the detection limit of the test. Performed By: #### I NFLUAB #### [facility] [place] [facility] [address] [place] [address] Jessieyamile Gandhi INFLUBNEGH SEE BELOW Normal [facility] Comment on above: Result Comment: Nega tive for Flu B protein antigen. Infection due to Flu B cannot be ruled out. Flu B antigen in the sample may be below the detection limit of the test. Performed By: #### I NFLUAB #### [facility] [place] [facility] [address] [place] [address] Jessie Oksana INFLUENZA A AG Negative Normal NEGATIVE SEE COMMENT [facility] Comment on above: Performed By: #### I NFLUAB #### [facility] [place] [facility] [address] [place] [address] Jessie Oksana INFLUENZA B AG Negative Normal NEGATIVE SEE COMMENT [facility] Comment on above: Performed By: #### I NFLUAB #### [facility] [place] [facility] [address] [place] [address] Jessie Oksana INTERNAL CONTROLS Within Normal Limits Normal Wi thin Normal Limits [facility] [place] [facility] Comment on above: Performed By: #### I NFLUAB #### [facility] [place] [facility] [address] [place], [place] [address] Jessie Gandhi Encounters Encounter Date Encounter Type Care Provider Facility Start: 04-19-2024 End: 04-19-2024 ambulatory [facility] Start: 03-16-2024 End: 03-16-2024 ambulatory [facility] Start: 03-08-2024 End: 03-08-2024 Evaluation and management of inpatient [facility] Start: 03-07-2024 End: 03-07-2024 ambulatory [facility] Start: 02-10-2024 End: 02-10-2024 Emergency department patient visit [facility] Start: 02-08-2024 End: 02-08-2024 ambulatory [facility] Start: 01-27-2024 End: 01-27-2024 ambulatory [facility] Start: 01-07-2024 End: 01-08-2024 ambulatory [facility] Start: 01-07-2024 End: 01-07-2024 ambulatory [facility] Start: 08-27-2019 End: 08-27-2019 Patient encounter procedure PANCHITO JUAREZ Facility:[facility]1 Procedures Date Procedure Procedure Detail Performing Clinician Start: 01-07-2024 Follow-up visit Follow-up [facility] Payers Date Payer Category Payer Medicaid [id number] 1975 Unknown [id number] 2.16.84 [id number] 1975 Unknown [id number] 2.16.8 [id number] 1975 Unknown [id number] 2.16.8 40.1.936825.3.579.2.1286 1975 Unknown [id number] 2.16.8 40.1.934901.3.579.2.1286 1975 Unknown [id number] 2.16.8 40.1.763457.3.579.2.1285 1975 Unknown [id number] 2.16.8 40.1.393962.3.579.2.1286 1975 Unknown [id number] 2.16.8 40.1.937657.3.579.2.1285 1975 Unknown [id number] 2.16.8 40.1.724488.3.579.2.128 1975 Unknown [id number] 2.16.8 40.1.835183.3.579.2.1285 1975 Unknown [id number] 2.16.8 40.1.390733.3.579.2.1286 1959 Unknown [id number] Summary Purpose Family History No Family History Records FoundNo Family History Records FoundNo Family History Records FoundNo Family History Records Found Advance Directives No Advanced Directives Records FoundNo Advanced Directives Records FoundNo Advanced Directives Records FoundNo Advanced Directives Records Found Additional Source Comments INFORMATION SOURCE (unrecogn ized section and content) DATE CREATED AUTHOR 08/29/2019 [facility] DATE CREATED AUTHOR AUTHOR'S ORGANIZ ATION 01/10/2024 [facility] DATE CREATED AUTHOR AUTHOR'S ORGANIZ ATION 03/11/2024 [facility] DATE CREATED AUTHOR AUTHOR'S ORGANIZ ATION 04/21/2024 [facility] FOR RECORDS PERTAINING TO [...] BE BASED ON THE PRIMARY CLINICAL RECORDS. [facility]. provides no warranty or guarantee of the accuracy or completeness of information in this document.
[2024-05-22 22:13] VITALS: BP 155/75; PULSE 59; TEMP 36.5; O2SAT 97; BMI 25.7
[2024-05-22] MEDS: POTASSIUM CHLORIDE/D5-0.9%NACL 1,000 ML 125 ML IV (22:58)
[2024-05-23 04:00] VITALS: BP 151/86; PULSE 72; TEMP 36.4; O2SAT 98
--- OUTSIDE RECORDS SUMMARY | 2024-05-23 05:59 | XMS_ITS | CCD ---
Author Organization [facility] Care Team Providers Care Management Professional Name Role Phone PANCHITO JUAREZ Admitting Unavailable [...] KUNS, ANDREW ESPINAL Primary Care Unavailable YUHAS, GEOVANIN Machado Attending Unavailable YUHAS, GEOVANNI Machado Referring [...] Facility Surgical Pathologyon 024 Surgical Pathology Normal [facility] Comment on above: Result Comment: [facility] [address] [place] [address] Surgical Pathology Consultation Patient Name:KELLI LAKE:1975 (Age: 48)Gender:FTaken:4Reported:4Physician(s):Geovanni Rivers MD ([phone])Copy To: Rec. #:[id number]: #[id number] Final Pathologic Diagnosis 1. Transverse colon biopsy: [...] Out ao/03/09/2024lian Camara MD Interpretation performed at [facility], [address] [place] [address], License number: [id number]. Clinical History Colitis. Gross Description 1. Received in formalin labeled ALEKSANDRA, #1: Transverse BX are 3 edmondson bits/strips of soft tissue, ranging from 0.5-0.9 cm in greatest dimension. Filtered and submitted in a single cassette. (1, ns, [id number], m7) MG 2. Received in formalin labeled MICHELELINGER, #2: Sigmoid are 5 edmondson bits of soft tissue, ranging from 0.2-0.3 cm in greatest dimension. Filtered and submitted in a single cassette. (1, ns, [id number], m7) MG mjg/4AO Specimen(s) Received 1: Transverse colon biopsies 2: Sigmoid colon biopsy Fee Codes(s): 1; 34219 2; 48428 CBC AND AUTO DIFFon 02-10-20 ABSOLUTE BASOPHIL 0.0 X10E9/L Normal 0.0-0.2 [facility] Comment on above: Performed By: #### Marguerite JASSO, 28755-5, CMP, 0-3 #### [facility] ([id number]) [address] [place] [address] 42280 ABSOLUTE NEUTROPHIL 11.5 X10E9/L High 1.5-6.6 [facility] Comment on above: Performed By: #### Marguerite JASSO, 22344-6, CMP, 3039-3 #### [facility] ([id number]) [address] [place] [address] 92752 Basophils/100 WBC (Bld) 0.2 % Normal [facility] Comment on above: Performed By: #### Marguerite JASSO, 59564-9, CMP, 3039-3 #### [facility] ([id number]) [address] [place] [address] 33548 Eosinophils (Bld) [#/Vol] 0.0 10*3/uL Normal 0.0-0.4 [facility] Comment on above: Performed By: #### Marguerite JASSO, 88925-5, CMP, 3039-3 #### [facility] ([id number]) [address] [place] [address] 81615 Eosinophils/100 WBC (Bld) 0.1 % Normal [facility] Comment on above: Performed By: #### Marguerite JASSO, 90102-8, CMP, 3039-3 #### [facility] ([id number]) [address] [place] [address] 82336 Erythrocyte distribution width (RBC) [Ratio] 19.1 % High 11.5-15.0 [facility] Comment on above: Performed By: #### Marguerite JASSO, 55479-7, CMP, 0-3 #### [facility] ([id number]) [address] [place] [address] 66211 Hematocrit (Bld) [Volume fraction] 36.4 % Normal 35-47 [facility] Comment on above: Performed By: #### Marguerite JASSO, 87722-2, CMP, 3040-3 #### [facility] ([id number]) [address] [place] [address] 45074 Hemoglobin (Bld) [Mass/Vol] 12.2 g/dL Normal 11.7-15.5 [facility] Comment on above: Performed By: #### Marguerite JASSO, 41132-1, CMP, 0-3 #### [facility] ([id number]) [address] [place] [address] 76682 Lymphocytes (Bld) [#/Vol] 0.7 10*3/uL Low 1.0-3.5 [facility] Comment on above: Performed By: #### Marguerite JASSO, 89817-7, CMP, 3039-3 #### [facility] ([id number]) [address] [place] [address] 22893 Lymphocytes/100 WBC (Bld) 5.7 % Normal [facility] Comment on above: Performed By: #### Marguerite JASSO, 79513-1, CMP, 0-3 #### [facility] ([id number]) [address] [place] [address] 87425 MCH (RBC) [Entitic mass] 24.9 pg Low 27-34 [facility] Comment on above: Performed By: #### Marguerite JASSO, 29405-9, CMP, 0-3 #### [facility] ([id number]) [address] [place] [address] 92710 MCHC (RBC) [Mass/Vol] 33.5 g/dL Normal 32-36 [facility] Comment on above: Performed By: #### Marguerite JASSO, 71942-6, CMP, 3040-3 #### [facility] ([id number]) [address] [place] [address] MCV (RBC) [Entitic vol] 74 fL Low 80-100 [facility] Comment on above: Performed By: #### Marguerite JASSO, 97636-4, CMP, 3040-3 #### [facility] ([id number]) [address] [place] [address] 29359 Monocytes (Bld) [#/Vol] 0.4 10*3/uL Normal 0-0.9 [facility] Comment on above: Performed By: #### Marguerite JASSO, 36778-3, CMP, 3040-3 #### [facility] ([id number]) [address] [place] [address] 39535 Monocytes/100 WBC (Bld) 3.2 % Normal [facility] Comment on above: Performed By: #### Marguerite JASSO, 21183-4, CMP, 3040-3 #### [facility] ([id number]) [address] [place] [address] [place] [address] Neutrophils/100 WBC (Bld) 90.8 % Normal [facility] Comment on above: Performed By: #### Marguerite JASSO, 28832-4, CMP, 3040-3 #### [facility] ([id number]) [address] [place] [address] 54610 Platelet mean volume (Bld) [Entitic vol] 8.1 fL Normal 7-12 [facility] Comment on above: Performed By: #### Marguerite JASSO, 09467-0, CMP, 3040-3 #### [facility] ([id number]) [address] [place] [address] 33413 Platelets (Bld) [#/Vol] 435 10*3/uL Normal 150-450 [facility] Comment on above: Performed By: #### Marguerite JASSO, 70636-4, CMP, 3040-3 #### [facility] ([id number]) [address] [place] [address] [place] [address] RBC COUNT 4.90 X10E12/L Normal 3.80-5.20 [facility] Comment on above: Performed By: #### C BCA, 14599-2, CMP, 3040-3 #### [facility] ([id number]) [address] [place] [address] 86258 WBC (Bld) [#/Vol] 12.6 10*3/uL High 4.0-11.0 [facility] Comment on above: Performed By: #### C BCA, 18290-9, CMP, 3040-3 #### [facility] ([id number]) [address] [place] [address] 55035 COMPREHENSIVE METABOLIC PANE Hoang 02-10-2024 Albumin [Mass/Vol] 4.1 g/dL Normal 3.2-5.3 [facility] Comment on above: Performed By: #### C BCA, 38061-4, CMP, 3040-3 #### [facility] ([id number]) [address] [place] [address] 82495 ALP [Catalytic activity/Vol] 53 U/L Normal 39-130 [facility] Comment on above: Performed By: #### C BCA, 61880-2, CMP, 3040-3 #### [facility] ([id number]) [address] [place] [address] 68201 ALT [Catalytic activity/Vol] 10 U/L Normal 0-31 [facility] Comment on above: Performed By: #### C BCA, 04040-0, CMP, 3040-3 #### [facility] ([id number]) [address] [place] [address] 86339 Anion gap [Moles/Vol] 8 mmol/L Normal 5-15 [facility] Comment on above: Performed By: #### C BCA, 93683-3, CMP, 3040-3 #### [facility] ([id number]) [address] [place] [address] 18126 AST [Catalytic activity/Vol] 17 U/L Normal 0-41 [facility] Comment on above: Performed By: #### C BCA, 47911-5, CMP, 3040-3 #### [facility] ([id number]) [address] [place] [address] 54011 Bilirubin [Mass/Vol] 1.0 mg/dL Normal 0.3-1.2 [facility] Comment on above: Performed By: #### C BCA, 16734-7, CMP, 3040-3 #### [facility] ([id number]) [address] [place] [address] 79695 Calcium [Mass/Vol] 8.5 mg/dL Normal 8.5-10.5 [facility] Comment on above: Performed By: #### C BCA, 56386-8, CMP, 3040-3 #### [facility] ([id number]) [address] [place] [address] 23548 Chloride [Moles/Vol] 99 mmol/L Normal 98-109 [facility] Comment on above: Performed By: #### C BCA, 04593-4, CMP, 3040-3 #### [facility] ([id number]) [address] [place] [address] 04279 CO2 [Moles/Vol] 24 mmol/L Normal 22-32 [facility] Comment on above: Performed By: #### C BCA, 44091-3, CMP, 3040-3 #### [facility] ([id number]) [address] [place] [address] 48154 Creatinine [Mass/Vol] 0.71 mg/dL Normal 0.40-1.00 [facility] Comment on above: Result Comment: METH OD TRACEABLE TO IDMS STANDARD Performed By: #### C BCA, 70665-9, CMP, 3040-3 #### [facility] ([id number]) [address] [place] [address] 32270 eGFR (CKD-EPI) NON-RACE DEPENDENT >90 Normal >59 [facility] Comment on above: Result Comment: Reported eGFR is based on the CKD-EPI 2020 equation that does not use a race coefficient. Performed By: #### C BCA, 91845-1, CMP, 3040-3 #### [facility] ([id number]) [address] [place] [address] 79316 Glucose [Mass/Vol] 114 mg/dL High 65-99 [facility] Comment on above: Performed By: #### C BCA, 78482-2, CMP, 3040-3 #### [facility] ([id number]) [address] [place] [address] 49517 Potassium [Moles/Vol] 3.7 mmol/L Normal 3.5-5.0 [facility] Comment on above: Performed By: #### C BCA, 96557-2, CMP, 3040-3 #### [facility] ([id number]) [address] [place] [address] 68809 Protein [Mass/Vol] 7.6 g/dL Normal 6.0-8.0 [facility] Comment on above: Performed By: #### C BCA, 66494-9, CMP, 3040-3 #### [facility] ([id number]) [address] [place] [address] 11098 Sodium [Moles/Vol] 131 mmol/L Low 134-146 [facility] Comment on above: Performed By: #### C BCA, 08506-1, CMP, 3040-3 #### [facility] ([id number]) [address] [place] [address] 44105 Urea nitrogen [Mass/Vol] 11 mg/dL Normal 5-23 [facility] Comment on above: Performed By: #### C BCA, 73304-0, CMP, 3040-3 #### [facility] ([id number]) [address] [place] [address] 61007 HCG ( test) Ql (U)o n 02-10-2024 Beta HCG ( test) Ql (U) Negative Normal NEG [facility] Comment on above: Performed By: #### 2 106-3 #### [facility] ([id number]) [address] [place] [address] 76080 LIPASEon 02-10-2024 Lipase [Catalytic activity/Vol] 42 U/L High 17-40 [facility] Comment on above: Performed By: #### C BCA, 23380-1, CMP, 3040-3 #### [facility] ([id number]) [address] [place] [address] 85528 Lactate (P caroline) [Moles/Vol]o n 02-10-2024 LACTATE W/REFLEX 1.1 mmol/L Normal 0.4-2.0 [facility] Comment on above: Result Comment: Result did not trigger repeat Lactate, re-order if needed. Performed By: #### C BCA, 80325-0, CMP, 3040-3 #### [facility] ([id number]) [address] [place] [address] 12663 URN MACROSCOPIC NURon 2023 BILIRUBIN MEÑO Small Abnormal NEG [facility] Comment on above: Performed By: #### N UM #### [facility] ([id number]) [address] [place] [address] 08258 BLOOD/HGB MEÑO Negative Normal NEG [facility] Comment on above: Performed By: #### N UM #### [facility] ([id number]) [address] [place] [address] 12778 GLUCOSE MEÑO Negative Normal NEG [facility] Comment on above: Performed By: #### N UM #### [facility] ([id number]) [address] [place] [address] 61223 KETONES MEÑO 80 mg/dL Abnormal NEG [facility] Comment on above: Performed By: #### N UM #### [facility] ([id number]) [address] [place] [address] 63382 LEUKOCYTE ESTERASE MEÑO Negative Normal NEG [facility] Comment on above: Performed By: #### N UM #### [facility] ([id number]) [address] [place] [address] 03852 NITRITE MEÑO Negative Normal NEG [facility] Comment on above: Performed By: #### N UM #### [facility] ([id number]) [address] [place] [address] 25947 PH MEÑO 6.0 Normal 5.0-8.5 [facility] Comment on above: Performed By: #### N UM #### [facility] ([id number]) [address] [place] [address] 68715 PROTEIN MEÑO 30 mg/dL Abnormal NEG [facility] Comment on above: Performed By: #### N UM #### [facility] ([id number]) [address] [place] [address] 83647 SPECIFIC GRAVITY MEÑO 1.025 Normal 1.003-1.035 [facility] Comment on above: Performed By: #### N UM #### [facility] ([id number]) [address] [place] [address] 98715 UROBILINOGEN MEÑO 0.2 eu/dL Normal <1.1 [facility] Comment on above: Performed By: #### N UM #### [facility] ([id number]) [address] [place] [address] 56130 BASIC METABOLIC PANLon 01-06 Anion gap [Moles/Vol] 8 mmol/L Normal 5-15 [facility] Comment on above: Performed By: #### B MP #### [facility] ([id number]) [address] [place] [address] Calcium [Mass/Vol] 8.6 mg/dL Normal 8.5-10.5 [facility] Comment on above: Performed By: #### B MP #### [facility] ([id number]) [address] [place] [address] Chloride [Moles/Vol] 105 mmol/L Normal 98-109 [facility] Comment on above: Performed By: #### B MP #### [facility] ([id number]) [address] [place] [address] CO2 [Moles/Vol] 25 mmol/L Normal 22-32 [facility] Comment on above: Performed By: #### B MP #### [facility] ([id number]) [address] [place] [address] Creatinine [Mass/Vol] 0.74 mg/dL Normal 0.40-1.00 [facility] Comment on above: Result Comment: METH OD TRACEABLE TO IDMS STANDARD Performed By: #### B MP #### [facility] ([id number]) [address] [place] [address] eGFR (CKD-EPI) NON-RACE DEPENDENT >90 Normal >59 [facility] Comment on above: Result Comment: Reported eGFR is based on the CKD-EPI 1 equation that does not use a race coefficient. Performed By: #### B MP #### [facility] ([id number]) [address], [address] [place] [address] Glucose [Mass/Vol] 87 mg/dL Normal 65-99 [facility] Comment on above: Performed By: #### B MP #### [facility] ([id number]) [address], [address] [place] [address] Potassium [Moles/Vol] 3.9 mmol/L Normal 3.5-5.0 [facility] Comment on above: Performed By: #### B MP #### [facility] ([id number]) [address] [place] [address] Sodium [Moles/Vol] 138 mmol/L Normal 134-146 [facility] Comment on above: Performed By: #### B MP #### [facility] ([id number]) [address] [place] [address] Urea nitrogen [Mass/Vol] 5 mg/dL Normal 5-23 [facility] Comment on above: Performed By: #### B MP #### [facility] ([id number]) [address], [address] [place] [address] INFLUENZA A AND B AGon 08-27 [facility] SEE BELOW Normal [facility] Comment on above: Result Comment: Nega tive for Flu A protein angiten. Infection due to Flu A cannot be ruled out. Flu A angiten in the sample may be below the detection limit of the test. Performed By: #### I NFLUAB #### [facility] [address] [place] [address] Jessieyamile Gandhi INFLUBNEGH SEE BELOW Normal [facility] Comment on above: Result Comment: Nega tive for Flu B protein antigen. Infection due to Flu B cannot be ruled out. Flu B antigen in the sample may be below the detection limit of the test. Performed By: #### I NFLUAB #### [facility] [address] [place] [address] Jessie Oksana INFLUENZA A AG Negative Normal NEGATIVE SEE COMMENT [facility] Comment on above: Performed By: #### I NFLUAB #### [facility] [address] [place] [address] Jessie Oksana INFLUENZA B AG Negative Normal NEGATIVE SEE COMMENT [facility] Comment on above: Performed By: #### I NFLUAB #### [facility] [address] [place] [address] Jessie Oksana INTERNAL CONTROLS Within Normal Limits Normal Wi thin Normal Limits [facility] Comment on above: Performed By: #### I NFLUAB #### [facility] [address] [place], [place] [address] Jessie Gandhi Encounters Encounter Date Encounter Type Care Provider Facility Start: 04-19-2024 End: 04-19-2024 ambulatory [facility] Start: 03-16-2024 End: 03-16-2024 ambulatory [facility] Start: 03-08-2024 End: 03-08-2024 Evaluation and management of inpatient [facility] Start: 03-07-2024 End: 03-07-2024 ambulatory [facility] Start: 02-10-2024 End: 02-10-2024 Emergency department patient visit [facility] Start: 02-08-2024 End: 02-08-2024 ambulatory [facility] Start: 01-27-2024 End: 01-27-2024 ambulatory [facility] Start: 01-07-2024 End: 01-08-2024 ambulatory [facility] Start: 01-07-2024 End: 01-07-2024 ambulatory [facility] Start: 08-27-2019 End: 08-27-2019 Patient encounter procedure PANCHITO JUAREZ Facility:[facility]1 Procedures Date Procedure Procedure Detail Performing Clinician Start: 01-07-2024 Follow-up visit Follow-up [facility] Payers Date Payer Category Payer Medicaid [id number] 1975 Unknown [id number] 2.16.84 [id number] 1975 Unknown [id number] 2.16.8 [id number] 1975 Unknown [id number] 2.16.8 40.1.309788.3.579.2.1286 1975 Unknown [id number] 2.16.8 40.1.675503.3.579.2.1286 1975 Unknown [id number] 2.16.8 40.1.624258.3.579.2.1285 1975 Unknown [id number] 2.16.8 40.1.691800.3.579.2.1286 1975 Unknown [id number] 2.16.8 40.1.956397.3.579.2.1285 1975 Unknown [id number] 2.16.8 40.1.554229.3.579.2.128 1975 Unknown [id number] 2.16.8 40.1.523483.3.579.2.1285 1975 Unknown [id number] 2.16.8 40.1.573372.3.579.2.1286 1959 Unknown [id number] Summary Purpose Family History No Family History Records FoundNo Family History Records FoundNo Family History Records FoundNo Family History Records Found Advance Directives No Advanced Directives Records FoundNo Advanced Directives Records FoundNo Advanced Directives Records FoundNo Advanced Directives Records Found Additional Source Comments INFORMATION SOURCE (unrecogn ized section and content) DATE CREATED AUTHOR 08/29/2019 [facility] DATE CREATED AUTHOR AUTHOR'S ORGANIZ ATION 01/10/2024 [facility] DATE CREATED AUTHOR AUTHOR'S ORGANIZ ATION 03/11/2024 [facility] DATE CREATED AUTHOR AUTHOR'S ORGANIZ ATION 04/21/2024 [facility] FOR RECORDS PERTAINING TO [...] BE BASED ON THE PRIMARY CLINICAL RECORDS. [facility] [employer] [facility]. provides no warranty or guarantee of the accuracy or completeness of information in this document.
[2024-05-23 06:11] LABS: Basophils Percent Auto 0.1 % (0.2-2.0); Hematocrit 32.6 % (36.0-48.0); Hemoglobin 10.3 g/dL (12.0-16.0); Immature Granulocytes Abs Auto 0.03 10^3/uL (0.00-0.03); Immature Granulocytes Pct Auto 0.4 % (0.0-0.5); Lymphocytes Absolute Auto 0.5 10^3/uL (1.2-3.8); Mean Corpuscular HGB Conc 31.6 g/dL (29.9-35.2); Mean Corpuscular Volume 79.1 fL (81.0-99.0); Mean Platelet Volume 10.4 fL (9.5-13.5); Monocytes Percent Auto 0.6 % (1.7-12.0); Neutrophils Absolute Auto 6.7 10^3/uL (1.4-6.5); Neutrophils Percent Auto 91.9 % (43.0-75.0); Platelet Count 222 10^3/uL (150-450); Red Blood Count 4.12 10^6/uL (4.20-5.40); Red Cell Distribution Width 14.6 % (11.0-15.0); White Blood Count 7.3 10^3/uL (4.0-11.0)
[2024-05-23 06:33] LABS: Alanine Aminotransferase 19 U/L (14-59); Albumin Globulin Ratio 0.8; Albumin Level 3.6 g/dL (3.4-5.0); Alkaline Phosphatase 74 U/L (46-116); Anion Gap 15.9; Aspartate Amino Transferase 19 U/L (15-37); BUN Creatinine Ratio 5.9; Bilirubin Total 0.5 mg/dL (0.2-1.0); Calcium 8.7 mg/dL (8.5-10.1); Carbon Dioxide 22.8 mmol/L (21.0-32.0); Chloride 98 mmol/L (98-107); Estimated GFR (African America >60 (>=60); Estimated GFR (Non-African Ame 58 (>=60); Globulin 4.6 g/dL; Glucose 176 mg/dL (74-106); Magnesium 1.8 mg/dL (1.8-2.4); Potassium 3.7 mmol/L (3.5-5.1); Sodium 133 mmol/L (136-145); Total Protein 8.2 g/dL (6.4-8.2)
[2024-05-23] MEDS: POTASSIUM CHLORIDE/D5-0.9%NACL 1,000 ML 125 ML IV ×2 (07:04→17:22)
--- OUTSIDE RECORDS SUMMARY | 2024-05-23 07:28 | XMS_ITS | CCD ---
Author Organization [facility] Care Team Providers Care Clay Pigeon Setter Name Role Phone PANCHITO JUAREZ Admitting Unavailable [...] Facility Surgical Pathologyon 024 Surgical Pathology Normal [facility] Comment on above: Result Comment: [facility] [address] [place] [address] Surgical Pathology Consultation Patient Name:KELLI LAKE:1975 (Age: 48)Gender:FTaken:4Reported:4Physician(s):Geovanni Rivers MD ([phone])Copy To: Rec. #:[id number]: #[id number] Final Pathologic Diagnosis 1. Transverse colon biopsy: [...] Out ao/03/09/2024lian Camara MD Interpretation performed at [facility], [address] [place] [address], License number: [id number]. Clinical History Colitis. Gross Description 1. Received in formalin labeled ALEKSANDRA, #1: Transverse BX are 3 edmondson bits/strips of soft tissue, ranging from 0.5-0.9 cm in greatest dimension. Filtered and submitted in a single cassette. (1, ns, [id number], m7) MG 2. Received in formalin labeled MICHELLEINGER, #2: Sigmoid are 5 edmondson bits of soft tissue, ranging from 0.2-0.3 cm in greatest dimension. Filtered and submitted in a single cassette. (1, ns, [id number], m7) MG mjg/4AO Specimen(s) Received 1: Transverse colon biopsies 2: Sigmoid colon biopsy Fee Codes(s): 1; 54793 2; 27605 CBC AND AUTO DIFFon 02-10-20 ABSOLUTE BASOPHIL 0.0 X10E9/L Normal 0.0-0.2 [facility] Comment on above: Performed By: #### Marguerite JASSO, 58744-4, CMP, 0-3 #### [facility] ([id number]) [address] [place] [address] 52626 ABSOLUTE NEUTROPHIL 11.5 X10E9/L High 1.5-6.6 [facility] Comment on above: Performed By: #### Marguerite JASSO, 59832-1, CMP, 3039-3 #### [facility] ([id number]) [address] [place] [address] 29203 Basophils/100 WBC (Bld) 0.2 % Normal [facility] Comment on above: Performed By: #### Marguerite JASSO, 73541-7, CMP, 3039-3 #### [facility] ([id number]) [address] [place] [address] 36087 Eosinophils (Bld) [#/Vol] 0.0 10*3/uL Normal 0.0-0.4 [facility] Comment on above: Performed By: #### Marguerite JASSO, 92935-0, CMP, 3039-3 #### [facility] ([id number]) [address] [place] [address] 18960 Eosinophils/100 WBC (Bld) 0.1 % Normal [facility] Comment on above: Performed By: #### Marguerite JASSO, 57449-7, CMP, 3039-3 #### [facility] ([id number]) [address] [place] [address] 78206 Erythrocyte distribution width (RBC) [Ratio] 19.1 % High 11.5-15.0 [facility] Comment on above: Performed By: #### Marguerite JASSO, 97432-9, CMP, 0-3 #### [facility] ([id number]) [address] [place] [address] 69257 Hematocrit (Bld) [Volume fraction] 36.4 % Normal 35-47 [facility] Comment on above: Performed By: #### Marguerite JASSO, 57026-6, CMP, 3040-3 #### [facility] ([id number]) [address] [place] [address] 11812 Hemoglobin (Bld) [Mass/Vol] 12.2 g/dL Normal 11.7-15.5 [facility] Comment on above: Performed By: #### Marguerite JASSO, 66412-0, CMP, 0-3 #### [facility] ([id number]) [address] [place] [address] 58679 Lymphocytes (Bld) [#/Vol] 0.7 10*3/uL Low 1.0-3.5 [facility] Comment on above: Performed By: #### Marguerite JASSO, 12600-2, CMP, 3039-3 #### [facility] ([id number]) [address] [place] [address] 09903 Lymphocytes/100 WBC (Bld) 5.7 % Normal [facility] Comment on above: Performed By: #### Marguerite JASSO, 89248-2, CMP, 0-3 #### [facility] ([id number]) [address] [place] [address] 27837 MCH (RBC) [Entitic mass] 24.9 pg Low 27-34 [facility] Comment on above: Performed By: #### Marguerite JASSO, 93351-0, CMP, 0-3 #### [facility] ([id number]) [address] [place] [address] 88931 MCHC (RBC) [Mass/Vol] 33.5 g/dL Normal 32-36 [facility] Comment on above: Performed By: #### Marguerite JASSO, 95881-1, CMP, 3040-3 #### [facility] ([id number]) [address] [place] [address] MCV (RBC) [Entitic vol] 74 fL Low 80-100 [facility] Comment on above: Performed By: #### Marguerite JASSO, 31774-0, CMP, 3040-3 #### [facility] ([id number]) [address] [place] [address] 09274 Monocytes (Bld) [#/Vol] 0.4 10*3/uL Normal 0-0.9 [facility] Comment on above: Performed By: #### Marguerite JASSO, 81220-4, CMP, 3040-3 #### [facility] ([id number]) [address] [place] [address] 90274 Monocytes/100 WBC (Bld) 3.2 % Normal [facility] Comment on above: Performed By: #### Marguerite JASSO, 14418-4, CMP, 3040-3 #### [facility] ([id number]) [address] [place] [address] [place] [address] Neutrophils/100 WBC (Bld) 90.8 % Normal [facility] Comment on above: Performed By: #### Marguerite JASSO, 66132-2, CMP, 3040-3 #### [facility] ([id number]) [address] [place] [address] 43498 Platelet mean volume (Bld) [Entitic vol] 8.1 fL Normal 7-12 [facility] Comment on above: Performed By: #### Marguerite JASSO, 92968-7, CMP, 3040-3 #### [facility] ([id number]) [address] [place] [address] 88929 Platelets (Bld) [#/Vol] 435 10*3/uL Normal 150-450 [facility] Comment on above: Performed By: #### Marguerite JASSO, 51906-8, CMP, 3040-3 #### [facility] ([id number]) [address] [place] [address] [place] [address] RBC COUNT 4.90 X10E12/L Normal 3.80-5.20 [facility] Comment on above: Performed By: #### C BCA, 20896-0, CMP, 3040-3 #### [facility] ([id number]) [address] [place] [address] 22326 WBC (Bld) [#/Vol] 12.6 10*3/uL High 4.0-11.0 [facility] Comment on above: Performed By: #### C BCA, 82617-7, CMP, 3040-3 #### [facility] ([id number]) [address] [place] [address] 64716 COMPREHENSIVE METABOLIC PANE Hoang 02-10-2024 Albumin [Mass/Vol] 4.1 g/dL Normal 3.2-5.3 [facility] Comment on above: Performed By: #### C BCA, 10201-9, CMP, 3040-3 #### [facility] ([id number]) [address] [place] [address] 71958 ALP [Catalytic activity/Vol] 53 U/L Normal 39-130 [facility] Comment on above: Performed By: #### C BCA, 84491-8, CMP, 3040-3 #### [facility] ([id number]) [address] [place] [address] 00696 ALT [Catalytic activity/Vol] 10 U/L Normal 0-31 [facility] Comment on above: Performed By: #### C BCA, 88830-7, CMP, 3040-3 #### [facility] ([id number]) [address] [place] [address] 18954 Anion gap [Moles/Vol] 8 mmol/L Normal 5-15 [facility] Comment on above: Performed By: #### C BCA, 59567-8, CMP, 3040-3 #### [facility] ([id number]) [address] [place] [address] 18652 AST [Catalytic activity/Vol] 17 U/L Normal 0-41 [facility] Comment on above: Performed By: #### C BCA, 25102-3, CMP, 3040-3 #### [facility] ([id number]) [address] [place] [address] 08286 Bilirubin [Mass/Vol] 1.0 mg/dL Normal 0.3-1.2 [facility] Comment on above: Performed By: #### C BCA, 31538-6, CMP, 3040-3 #### [facility] ([id number]) [address] [place] [address] 23956 Calcium [Mass/Vol] 8.5 mg/dL Normal 8.5-10.5 [facility] Comment on above: Performed By: #### C BCA, 04099-9, CMP, 3040-3 #### [facility] ([id number]) [address] [place] [address] 97084 Chloride [Moles/Vol] 99 mmol/L Normal 98-109 [facility] Comment on above: Performed By: #### C BCA, 10937-3, CMP, 3040-3 #### [facility] ([id number]) [address] [place] [address] 58969 CO2 [Moles/Vol] 24 mmol/L Normal 22-32 [facility] Comment on above: Performed By: #### C BCA, 00830-1, CMP, 3040-3 #### [facility] ([id number]) [address] [place] [address] 26301 Creatinine [Mass/Vol] 0.71 mg/dL Normal 0.40-1.00 [facility] Comment on above: Result Comment: METH OD TRACEABLE TO IDMS STANDARD Performed By: #### C BCA, 38023-4, CMP, 3040-3 #### [facility] ([id number]) [address] [place] [address] 80902 eGFR (CKD-EPI) NON-RACE DEPENDENT >90 Normal >59 [facility] Comment on above: Result Comment: Reported eGFR is based on the CKD-EPI 2020 equation that does not use a race coefficient. Performed By: #### C BCA, 27173-9, CMP, 3040-3 #### [facility] ([id number]) [address] [place] [address] 58011 Glucose [Mass/Vol] 114 mg/dL High 65-99 [facility] Comment on above: Performed By: #### C BCA, 07169-3, CMP, 3040-3 #### [facility] ([id number]) [address] [place] [address] 31625 Potassium [Moles/Vol] 3.7 mmol/L Normal 3.5-5.0 [facility] Comment on above: Performed By: #### C BCA, 20038-7, CMP, 3040-3 #### [facility] ([id number]) [address] [place] [address] 64759 Protein [Mass/Vol] 7.6 g/dL Normal 6.0-8.0 [facility] Comment on above: Performed By: #### C BCA, 79847-7, CMP, 3040-3 #### [facility] ([id number]) [address] [place] [address] 33196 Sodium [Moles/Vol] 131 mmol/L Low 134-146 [facility] Comment on above: Performed By: #### C BCA, 16402-4, CMP, 3040-3 #### [facility] ([id number]) [address] [place] [address] 50258 Urea nitrogen [Mass/Vol] 11 mg/dL Normal 5-23 [facility] Comment on above: Performed By: #### C BCA, 06657-0, CMP, 3040-3 #### [facility] ([id number]) [address] [place] [address] 77411 HCG ( test) Ql (U)o n 02-10-2024 Beta HCG ( test) Ql (U) Negative Normal NEG [facility] Comment on above: Performed By: #### 2 106-3 #### [facility] ([id number]) [address] [place] [address] 75663 LIPASEon 02-10-2024 Lipase [Catalytic activity/Vol] 42 U/L High 17-40 [facility] Comment on above: Performed By: #### C BCA, 33624-4, CMP, 3040-3 #### [facility] ([id number]) [address] [place] [address] 47797 Lactate (P caroline) [Moles/Vol]o n 02-10-2024 LACTATE W/REFLEX 1.1 mmol/L Normal 0.4-2.0 [facility] Comment on above: Result Comment: Result did not trigger repeat Lactate, re-order if needed. Performed By: #### C BCA, 86014-5, CMP, 3040-3 #### [facility] ([id number]) [address] [place] [address] 55641 URN MACROSCOPIC NURon 2023 BILIRUBIN MEÑO Small Abnormal NEG [facility] Comment on above: Performed By: #### N UM #### [facility] ([id number]) [address] [place] [address] 52877 BLOOD/HGB MEÑO Negative Normal NEG [facility] Comment on above: Performed By: #### N UM #### [facility] ([id number]) [address] [place] [address] 47729 GLUCOSE MEÑO Negative Normal NEG [facility] Comment on above: Performed By: #### N UM #### [facility] ([id number]) [address] [place] [address] 22779 KETONES MEÑO 80 mg/dL Abnormal NEG [facility] Comment on above: Performed By: #### N UM #### [facility] ([id number]) [address] [place] [address] 36869 LEUKOCYTE ESTERASE MEÑO Negative Normal NEG [facility] Comment on above: Performed By: #### N UM #### [facility] ([id number]) [address] [place] [address] 78687 NITRITE MEÑO Negative Normal NEG [facility] Comment on above: Performed By: #### N UM #### [facility] ([id number]) [address] [place] [address] 80193 PH MEÑO 6.0 Normal 5.0-8.5 [facility] Comment on above: Performed By: #### N UM #### [facility] ([id number]) [address] [place] [address] 41910 PROTEIN MEÑO 30 mg/dL Abnormal NEG [facility] Comment on above: Performed By: #### N UM #### [facility] ([id number]) [address] [place] [address] 84474 SPECIFIC GRAVITY MEÑO 1.025 Normal 1.003-1.035 [facility] Comment on above: Performed By: #### N UM #### [facility] ([id number]) [address] [place] [address] 87738 UROBILINOGEN MEÑO 0.2 eu/dL Normal <1.1 [facility] Comment on above: Performed By: #### N UM #### [facility] ([id number]) [address] [place] [address] 56964 BASIC METABOLIC PANLon 01-06 Anion gap [Moles/Vol] 8 mmol/L Normal 5-15 [facility] Comment on above: Performed By: #### B MP #### [facility] ([id number]) [address] [place] [address] Calcium [Mass/Vol] 8.6 mg/dL Normal 8.5-10.5 [facility] Comment on above: Performed By: #### B MP #### [facility] ([id number]) [address], [address] [place] [address] Chloride [Moles/Vol] 105 mmol/L Normal 98-109 [facility] Comment on above: Performed By: #### B MP #### [facility] ([id number]) [address], [address] [place] [address] CO2 [Moles/Vol] 25 mmol/L Normal 22-32 [facility] Comment on above: Performed By: #### B MP #### [facility] ([id number]) [address], [address] [place] [address] Creatinine [Mass/Vol] 0.74 mg/dL Normal 0.40-1.00 [facility] Comment on above: Result Comment: METH OD TRACEABLE TO IDMS STANDARD Performed By: #### B MP #### [facility] ([id number]) [address] [place] [address] eGFR (CKD-EPI) NON-RACE DEPENDENT >90 Normal >59 [facility] Comment on above: Result Comment: Reported eGFR is based on the CKD-EPI 1 equation that does not use a race coefficient. Performed By: #### B MP #### [facility] ([id number]) [address], [address] [place] [address] Glucose [Mass/Vol] 87 mg/dL Normal 65-99 [facility] Comment on above: Performed By: #### B MP #### [facility] ([id number]) [address], [address] [place] [address] Potassium [Moles/Vol] 3.9 mmol/L Normal 3.5-5.0 [facility] Comment on above: Performed By: #### B MP #### [facility] ([id number]) [address], [address] [place] [address] Sodium [Moles/Vol] 138 mmol/L Normal 134-146 [facility] Comment on above: Performed By: #### B MP #### [facility] ([id number]) [address], [address] [place] [address] Urea nitrogen [Mass/Vol] 5 mg/dL Normal 5-23 [facility] Comment on above: Performed By: #### B MP #### [facility] ([id number]) [address] [facility], [address] [place] [address] INFLUENZA A AND B AGon 08-27 [facility] SEE BELOW Normal [facility] Comment on above: Result Comment: Nega tive for Flu A protein angiten. Infection due to Flu A cannot be ruled out. Flu A angiten in the sample may be below the detection limit of the test. Performed By: #### I NFLUAB #### [facility] [address] [place] [address] Jessieyamile Gandhi INFLUBNEGH SEE BELOW Normal [facility] Comment on above: Result Comment: Nega tive for Flu B protein antigen. Infection due to Flu B cannot be ruled out. Flu B antigen in the sample may be below the detection limit of the test. Performed By: #### I NFLUAB #### [facility] [address] [place] [address] Jessie Oksana INFLUENZA A AG Negative Normal NEGATIVE SEE COMMENT [facility] Comment on above: Performed By: #### I NFLUAB #### [facility] [address] [place] [address] Jessie Oksana INFLUENZA B AG Negative Normal NEGATIVE SEE COMMENT [facility] Comment on above: Performed By: #### I NFLUAB #### [facility] [address] [place] [address] Jessie Oksana INTERNAL CONTROLS Within Normal Limits Normal Wi thin Normal Limits [facility] Comment on above: Performed By: #### I NFLUAB #### [facility] [address] [place], [place] [address] Jessie Gandhi Encounters Encounter Date Encounter Type Care Provider Facility Start: 04-19-2024 End: 04-19-2024 ambulatory [facility] Start: 03-16-2024 End: 03-16-2024 ambulatory [facility] Start: 03-08-2024 End: 03-08-2024 Evaluation and management of inpatient [facility] Start: 03-07-2024 End: 03-07-2024 ambulatory [facility] Start: 02-10-2024 End: 02-10-2024 Emergency department patient visit [facility] Start: 02-08-2024 End: 02-08-2024 ambulatory [facility] Start: 01-27-2024 End: 01-27-2024 ambulatory [facility] Start: 01-07-2024 End: 01-08-2024 ambulatory [facility] Start: 01-07-2024 End: 01-07-2024 ambulatory [facility] Start: 08-27-2019 End: 08-27-2019 Patient encounter procedure PANCHITO JUAREZ Facility:H1 Procedures Date Procedure Procedure Detail Performing Clinician Start: 01-07-2024 Follow-up visit Follow[facility]up [email or web address] Payers Date Payer Category Payer Medicaid [id number] 1975 Unknown [id number] 2.16.84 [id number] 1975 Unknown [id number] 2.16.8 40.1.219138.3.579.2.1286 1975 Unknown [id number] 2.16.8 40.1.195940.3.579.2.1286 1975 Unknown [id number] 2.16.8 40.1.844397.3.579.2.1286 1975 Unknown [id number] 2.16.8 40.1.817537.3.579.2.1285 1975 Unknown [id number] 2.16.8 40.1.982110.3.579.2.1286 1975 Unknown [id number] 2.16.8 40.1.461976.3.579.2.1285 1975 Unknown [id number] 2.16.8 40.1.375582.3.579.2.128 1975 Unknown [id number] 2.16.8 40.1.126745.3.579.2.1285 1977 Unknown [id number] 2.16.8 40.1.826246.3.579.2.1286 1959 Unknown [id number] Summary Purpose Family History No Family History Records FoundNo Family History Records FoundNo Family History Records FoundNo Family History Records Found Advance Directives No Advanced Directives Records FoundNo Advanced Directives Records FoundNo Advanced Directives Records FoundNo Advanced Directives Records Found Additional Source Comments INFORMATION SOURCE (unrecogn ized section and content) DATE CREATED AUTHOR 08/29/2019 [facility] DATE CREATED AUTHOR AUTHOR'S ORGANIZ ATION 01/10/2024 [facility] DATE CREATED AUTHOR AUTHOR'S ORGANIZ ATION 03/11/2024 [facility] DATE CREATED AUTHOR AUTHOR'S ORGANIZ ATION 04/21/2024 [facility] FOR RECORDS PERTAINING [...] BE BASED ON THE PRIMARY CLINICAL RECORDS. [facility]. provides no warranty or guarantee of the accuracy or completeness of information in this document.
[2024-05-23] MEDS: METRONIDAZOLE/SODIUM CHLORIDE 500 MG/100 ML PREMIX 100 MG IV ×3 (08:43→23:02)
[2024-05-23] MEDS: ESCITALOPRAM 10 MG TABLET 5 MG PO (08:44)
[2024-05-23] MEDS: ENOXAPARIN SODIUM 40 MG/0.4 ML SYRINGE SUBQ (08:45)
--- NOTE | 2024-05-23 09:20 | CM.NOTE ---
Rounds made with Dr. Shell, discussed with pt plan of care and need for IV antibiotics and IV steroids. Pt continues with nausea and abdominal tenderness.
[2024-05-23] MEDS: METHYLPREDNISOLONE SOD SUCC PF 40 MG/ML VIAL IVP ×2 (09:39→17:23)
[2024-05-23] MEDS: CIPROFLOXACIN IN 5 % DEXTROSE 400 MG/200 ML PREMIX 200 MG IV ×2 (09:40→21:44)
[2024-05-23 11:12] VITALS: O2SAT 97
--- NOTE | 2024-05-23 12:52 | PM.HP ---
HPI H&P: HPI History of Present Illness Chief complaint: Abdominal Pain, Colitis, Vomiting Narrative: 49-year-old female with history of ulcerative colitis presents with nausea, vomiting and diarrhea for 2 to 3 days. She reports inability to tolerate oral diet because of nausea. She also reports seeing small amount of blood in her stools. She has history of ulcerative colitis, recently diagnosed in January 2024. She was started on mesalamine but she could not tolerate it. She is waiting to see mission worker and is scheduled to see GI in August. Patient denies seeing vomiting and blood. She reports generalized abdominal discomfort. Denies dysuria, polyuria or hematuria. She was started on a clear liquid diet and was unable to tolerate and had an episode of emesis. She denies recent antibiotic use. She has not had any diarrhea since coming to ER. She also has prior history of C. difficile colitis in December 2023. Workup in ER revealed evidence of colitis on CT abdomen pelvis. She was admitted for observation, IV fluids and supportive care. Patient reports she feels the same and has not noticed any improvement in her symptoms Opioid HPI Opioid Management Most Recent Pain and Opioid Data: Last Pain Scale 6 05/23/24 07:19 Last Pain Assessment 05/23/24 13:35 Last MAR Pain Assessment 05/22/24 18:22 Last ORT Total Score 2 05/22/24 22:13 Last ORT Risk Category Low Risk 05/22/24 22:13 Review of Systems ROS Status of ROS 10 or more systems reviewed and unremarkable except as noted in history and below [facility] Medical History (Updated 05/23/24 @ 13:05 by Shaikh Suleman MD) Intractable abdominal pain ?R10.9 - Unspecified abdominal pain (ICD-10) Depression ?F32.A - Depression, unspecified (ICD-10) Colitis ?K52.9 - Noninfective gastroenteritis and colitis, unspecified (ICD-10) Acute proctitis ?K62.89 - Other specified diseases of anus and rectum (ICD-10) 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 of left artificial elbow joint (ICD-10) Scoliosis ?M41.9 - Scoliosis, unspecified (ICD-10) Surgical History Previous back surgery ?Z98.890 - Other specified postprocedural states (ICD-10) Family History Mother Family history of CHF (congestive heart failure) Family history of cancer Family history of hypertension Family history of myocardial infarction Family history of stroke Father Family history of cancer Social History Within the past year, how often did you have a drink containing alcohol: monthly or less Within the past year, how often did you have six or more drinks on one occasion: less than monthly Smoking status: Former smoker Non-prescribed substance use: cannabis (any form) Previous occupational history: Does not Work Known occupational exposures/hazards: No Highest level of school completed/degree received: some college, no degree Do you want help with school or training: No Are you now , , , , never or living with a partner: never In a typical week, how many times do you talk on the telephone with family, friends, or neighbors: 3 or more times per week How often do you get together with friends or relatives: 3 or more times per week How often do you attend uatsdin or christianity services: never Do you belong to any clubs or organizations such as uatsdin groups unions, fraternal or athletic groups, or school groups: no Total score: 1 Score interpretation: A score of less than or equal to 1 indicates the most socially isolated. Little interest or pleasure in doing things: several days Feeling down, depressed, or hopeless: several days Feel stressed/tense/nervous/anxious/difficulty sleeping: not at all Due to disability, difficulty making decisions: No Do you think of yourself as: straight/heterosexual Gender Identity: female Meds Home Medications and Allergies Home Medications ?Medication ?Instructions ?Recorded ?Confirmed ?Type escitalopram oxalate 5 mg tablet 5 mg PO DAILY 12/24/23 05/22/24 History hyoscyamine sulfate 0.125 mg 0.125 mg PO PRN nausea 05/22/24 05/22/24 History sublingual tablet Allergies Allergy/AdvReac Type Severity Reaction Status Date / Time metronidazole [From Flagyl] AdvReac Intermediate Abdominal Verified 05/22/24 16:14 Pain Exam Constitutional Vital Signs, click to edit/add: Last Vital Signs Temp 97.6 F 05/23/24 04:00 Pulse 72 05/23/24 04:00 Resp 18 05/23/24 04:00 BP 151/86 H 05/23/24 04:00 Pulse Ox 97 05/23/24 11:12 O2 Del Method Room Air 05/23/24 11:12 General appearance: cooperative, comfortable and ill appearing [facility] Common normals: normocephalic and head/scalp atraumatic Respiratory Common normals: normal respiratory effort, no use of accessory muscles and clear to auscultation bilaterally Cardio Common normals: no JVD, regular rhythm, S1 normal heart sound and S2 normal heart sound GI Common normals: Normal to inspection, nondistended, normoactive bowel sounds present and no hepatosplenomegaly Other: Mild generalized abdominal tenderness Back & Pelvis Other: Severe scoliosis of spine Extremity Common normals: normal to inspection and full ROM Neuro Common normals: oriented x3, moves all extremities, no focal motor deficits and gait normal Psych Common normals: mental status grossly normal, thought process normal, denies homicidal ideation and denies suicidal ideation Results Labs Labs: Short CBC 05/22/24 05/23/24 Range/Units 16:23 05:46 WBC 9.2 7.3 (4.0-11.0) 10^3/uL Hgb 11.0 L 10.3 L (12.0-16.0) g/dL Hct 35.4 L 32.6 L (36.0-48.0) % Plt Count 279 222 (150-450) 10^3/uL BMP 05/22/24 05/23/24 16:23 05:46 Sodium 136 133 L Potassium 3.5 3.7 Chloride 101 98 Carbon Dioxide 29.2 22.8 BUN 7.0 6.0 L Creatinine 1.02 1.02 Glucose 98 176 H Calcium 9.3 8.7 Liver Function 05/22/24 05/23/24 Range/Units 16:23 05:46 Total Bilirubin 0.6 0.5 (0.2-1.0) mg/dL Direct Bilirubin 0.1 (0.0-0.2) mg/dL AST 20 19 (15-37) U/L ALT 17 19 (14-59) U/L Alkaline Phosphatase 78 74 (46-116) U/L Albumin 3.7 3.6 (3.4-5.0) g/dL Urine 05/22/24 Range/Units 19:24 Urine Color Lt. yellow (YELLOW) Urine Clarity Clear (CLEAR) Urine pH 8.5 (5.0-9.0) Ur Specific [place] 1.015 (1.005-1.025) Urine Protein Negative (NEG/TRACE) mg/dL Urine Glucose (UA) Negative (NEGATIVE) mg/dL Assessment and Plan Assessment and Plan (1) Ulcerative colitis, acute: Assessment and Plan: Likely acute ulcerative colitis. Started patient on IV Solu-Medrol. On empirical IV ciprofloxacin/Flagyl. Advance diet as tolerated. Continue with IV fluids, antiemetic and pain control. Test for C. difficile. Qualifiers: Digestive disease complication type: with rectal bleeding Qualified Code(s): K51.911 - Ulcerative colitis, unspecified with rectal bleeding (2) Intractable nausea and vomiting: Assessment and Plan: Patient has intractable nausea and vomiting. Unable to take p.o. diet. Currently on clear liquids. Advance diet as tolerated. On IV Cipro and Flagyl. On IV Zofran as needed. (3) Depression: Assessment and Plan: Mood is stable. Continue with home medications. Qualifiers: Depression Type: unspecified Qualified Code(s): F32.A - Depression, unspecified (4) Scoliosis: Assessment and Plan: Chronic, unchanged. Prior history of surgery for it. Qualifiers: Scoliosis type: thoracogenic Spinal region: thoracolumbar Qualified Code(s): M41.35 - Thoracogenic scoliosis, thoracolumbar region
[2024-05-23 13:20] VITALS: BP 140/86; PULSE 65; TEMP 36.8; O2SAT 93
[2024-05-23] MEDS: ONDANSETRON PF 4 MG/2 ML VIAL IV ×2 (15:32→21:50)
[2024-05-23 19:48] VITALS: O2SAT 94
[2024-05-23 22:00] VITALS: BP 156/92; PULSE 69; TEMP 37.4; O2SAT 97
[2024-05-24] VITALS (7 sets, daily range): BP systolic 146–168; BP diastolic 87–89; PULSE 61–79; TEMP 36.6–37; O2SAT 97–99
[2024-05-24] MEDS: METHYLPREDNISOLONE SOD SUCC PF 40 MG/ML VIAL IVP ×3 (01:46→17:01)
[2024-05-24] MEDS: POTASSIUM CHLORIDE/D5-0.9%NACL 1,000 ML 125 ML IV ×2 (03:08→11:44)
[2024-05-24 06:24] LABS: Basophils Percent Auto 0.1 % (0.2-2.0); Hematocrit 31.7 % (36.0-48.0); Hemoglobin 10.2 g/dL (12.0-16.0); Immature Granulocytes Abs Auto 0.12 10^3/uL (0.00-0.03); Immature Granulocytes Pct Auto 0.6 % (0.0-0.5); Lymphocytes Absolute Auto 0.7 10^3/uL (1.2-3.8); Lymphocytes Percent Auto 3.8 % (20.5-60.0); Mean Corpuscular HGB Conc 32.2 g/dL (29.9-35.2); Mean Corpuscular Hemoglobin 25.3 pg (26.7-34.0); Mean Corpuscular Volume 78.7 fL (81.0-99.0); Mean Platelet Volume 10.6 fL (9.5-13.5); Monocytes Absolute Auto 0.4 10^3/uL (0.3-0.8); Monocytes Percent Auto 2.3 % (1.7-12.0); Neutrophils Absolute Auto 17.4 10^3/uL (1.4-6.5); Neutrophils Percent Auto 93.2 % (43.0-75.0); Platelet Count 225 10^3/uL (150-450); Red Blood Count 4.03 10^6/uL (4.20-5.40); Red Cell Distribution Width 14.9 % (11.0-15.0); White Blood Count 18.6 10^3/uL (4.0-11.0)
[2024-05-24 06:38] LABS: Alanine Aminotransferase 16 U/L (14-59); Albumin Globulin Ratio 0.8; Albumin Level 3.5 g/dL (3.4-5.0); Alkaline Phosphatase 63 U/L (46-116); Anion Gap 12.6; Aspartate Amino Transferase 20 U/L (15-37); BUN Creatinine Ratio 9.1; Bilirubin Total 0.5 mg/dL (0.2-1.0); Carbon Dioxide 23.1 mmol/L (21.0-32.0); Chloride 97 mmol/L (98-107); Estimated GFR (African America >60 (>=60 mL/min/1.73m^2); Estimated GFR (Non-African Ame >60 (>=60 mL/min/1.73m^2); Globulin 4.2 g/dL; Glucose 133 mg/dL (74-106); Potassium 3.7 mmol/L (3.5-5.1); Sodium 129 mmol/L (136-145); Total Protein 7.7 g/dL (6.4-8.2)
[2024-05-24] MEDS: METRONIDAZOLE/SODIUM CHLORIDE 500 MG/100 ML PREMIX 100 MG IV (08:26)
[2024-05-24] MEDS: ESCITALOPRAM 10 MG TABLET 5 MG PO (08:26)
[2024-05-24] MEDS: ENOXAPARIN SODIUM 40 MG/0.4 ML SYRINGE SUBQ (08:27)
--- NOTE | 2024-05-24 10:26 | CM.NOTE ---
Rounds made with Dr. Shell, pt continues to c/o nausea and vomiting. Pt discussed with Dr. Shell about IV Flagyl and thinks this is causing her vomiting. Dr. Shell will change IV antibiotic, no discharge today d/t pt inability to tolerate P.O.
--- NOTE | 2024-05-24 10:29 | PM.IMPN1 ---
Progress Note: A&P Assessment and Plan (1) Ulcerative colitis, acute: Assessment and Plan: No improvement clinically. Patient is still nauseous and unable to tolerate oral diet. Had multiple episodes of bilious emesis throughout the day and overnight. Continue with IV Solu-Medrol. Monitor blood glucose closely. Switch to IV Zosyn as patient reports intolerance to Flagyl. Discontinue ciprofloxacin. Added p.o. vancomycin as patient has prior history of C. difficile colitis. Check C. difficile but patient denies having any diarrhea Qualifiers: Digestive disease complication type: with rectal bleeding Qualified Code(s): K51.911 - Ulcerative colitis, unspecified with rectal bleeding (2) Intractable nausea and vomiting: Assessment and Plan: Continues to have intractable nausea and vomiting. Unable to tolerate p.o. diet. Switch IV antibiotic to IV Zosyn. Discontinue Cipro and Flagyl. Added p.o. vancomycin for presumed C. difficile colitis with prior history of C. difficile. (3) Depression: Assessment and Plan: Continue with home medications. Qualifiers: Depression Type: unspecified Qualified Code(s): F32.A - Depression, unspecified (4) Scoliosis: Assessment and Plan: Stable. Unchanged. Qualifiers: Scoliosis type: thoracogenic Spinal region: thoracolumbar Qualified Code(s): M41.35 - Thoracogenic scoliosis, thoracolumbar region Internal Medicine - PN: Subj Subjective Interval history: Seen and examined. Patient is still unable to tolerate p.o. diet. Had multiple episodes of bilious emesis overnight and throughout the day. She says that her abdominal pain is a little bit better. She is requesting that her IV Flagyl be switched to something else as she has intolerance to Flagyl. Exam Constitutional Vital Signs, click to edit/add: Last Vital Signs Temp 98 F 05/24/24 07:53 Pulse 63 05/24/24 07:53 Resp 18 05/24/24 07:53 BP 168/88 H 05/24/24 07:53 Pulse Ox 97 05/24/24 10:24 O2 Del Method Room Air 05/24/24 10:24 General appearance: cooperative and comfortable Respiratory Common normals: normal respiratory effort, no use of accessory muscles and clear to auscultation bilaterally Cardio Common normals: no JVD, regular rhythm, S1 normal heart sound and S2 normal heart sound GI Common normals: Normal to inspection, nondistended, normoactive bowel sounds present and no hepatosplenomegaly Other: Mild generalized abdominal tenderness Back & Pelvis Other: Severe scoliosis of spine Extremity Common normals: normal to inspection and full ROM Neuro Common normals: oriented x3, moves all extremities, no focal motor deficits and gait normal Psych Common normals: mental status grossly normal, thought process normal, denies homicidal ideation and denies suicidal ideation Internal Medicine - PN: Obj Da Labs Labs: Laboratory Results - last 24 hr 05/24/24 06:09 WBC 18.6 H RBC 4.03 L Hgb 10.2 L Hct 31.7 L MCV 78.7 L MCH 25.3 L MCHC 32.2 RDW 14.9 Plt Count 225 MPV 10.6 Neut % (Auto) 93.2 H Lymph % (Auto) 3.8 L [place] % (Auto) 2.3 Eos % (Auto) 0.0 L Baso % (Auto) 0.1 L Neut # (Auto) 17.4 H Lymph # (Auto) 0.7 L [place] # (Auto) 0.4 Eos # (Auto) 0.0 Baso # (Auto) 0.0 Abs Immat Gran (auto) 0.12 H Imm/Tot Granulo (auto) 0.6 H Sodium 129 L Potassium 3.7 Chloride 97 L Carbon Dioxide 23.1 Anion Gap 12.6 BUN 8.0 Creatinine 0.88 Est GFR ( Amer) >60 Est GFR (Non-Af Amer) >60 BUN/Creatinine Ratio 9.1 Glucose 133 H Calcium 9.0 Total Bilirubin 0.5 AST 20 ALT 16 Alkaline Phosphatase 63 Total Protein 7.7 Albumin 3.5 Globulin 4.2 Albumin/Globulin Ratio 0.8
--- NOTE | 2024-05-24 10:30 | CM.NOTE ---
Dr. Shell will change pt to inpatient status.
[2024-05-24] MEDS: VANCOMYCIN HCL 7,500 MG/150 ML BOTTLE 125 MG PO ×3 (11:47→22:59)
[2024-05-24] MEDS: PIPERACILLIN SODIUM/TAZOBACTAM 3.375 GM in 0.9 % SODIUM CHLORIDE 50 ML IV ×2 (13:45→22:57)
[2024-05-24] MEDS: ONDANSETRON PF 4 MG/2 ML VIAL IV ×2 (14:30→20:38)
[2024-05-25] VITALS (9 sets, daily range): BP systolic 153–162; BP diastolic 80–94; PULSE 59–80; TEMP 36.7–36.9; O2SAT 95–99
[2024-05-25] MEDS: METHYLPREDNISOLONE SOD SUCC PF 40 MG/ML VIAL IVP ×3 (02:36→17:46)
[2024-05-25] MEDS: ONDANSETRON PF 4 MG/2 ML VIAL IV (02:36)
[2024-05-25] MEDS: POTASSIUM CHLORIDE/D5-0.9%NACL 1,000 ML 125 ML IV ×3 (02:36→20:40)
[2024-05-25] MEDS: VANCOMYCIN HCL 7,500 MG/150 ML BOTTLE 125 MG PO ×4 (05:20→21:07)
[2024-05-25] MEDS: PIPERACILLIN SODIUM/TAZOBACTAM 3.375 GM in 0.9 % SODIUM CHLORIDE 50 ML IV ×3 (05:21→21:07)
[2024-05-25 06:34] LABS: Hematocrit 37.4 % (36.0-48.0); Mean Corpuscular HGB Conc 32.1 g/dL (29.9-35.2); Mean Corpuscular Hemoglobin 25.1 pg (26.7-34.0); Mean Corpuscular Volume 78.1 fL (81.0-99.0); Mean Platelet Volume 10.4 fL (9.5-13.5); Platelet Count 277 10^3/uL (150-450); Red Blood Count 4.79 10^6/uL (4.20-5.40); Red Cell Distribution Width 14.6 % (11.0-15.0); White Blood Count 14.9 10^3/uL (4.0-11.0)
[2024-05-25 06:59] LABS: Alanine Aminotransferase 16 U/L (14-59); Albumin Globulin Ratio 0.8; Albumin Level 3.8 g/dL (3.4-5.0); Alkaline Phosphatase 65 U/L (46-116); Anion Gap 14.7; Aspartate Amino Transferase 18 U/L (15-37); BUN Creatinine Ratio 6.1; Bilirubin Total 0.9 mg/dL (0.2-1.0); Carbon Dioxide 23.1 mmol/L (21.0-32.0); Chloride 91 mmol/L (98-107); Estimated GFR (African America >60 (>=60 mL/min/1.73m^2); Estimated GFR (Non-African Ame >60 (>=60 mL/min/1.73m^2); Globulin 4.6 g/dL; Glucose 131 mg/dL (74-106); Potassium 3.8 mmol/L (3.5-5.1); Sodium 125 mmol/L (136-145); Total Protein 8.4 g/dL (6.4-8.2)
[2024-05-25 07:11] LABS: Lymphocytes Absolute Manual 0.14 10^3/uL (1.20-3.80); Segmented Neut Absolute Manual 14.75 10^3/uL (1.4-6.5)
[2024-05-25] MEDS: 0.9 % SODIUM CHLORIDE 1,000 ML 1000 ML IV (08:00)
[2024-05-25] MEDS: ESCITALOPRAM 10 MG TABLET 5 MG PO (08:27)
[2024-05-25] MEDS: ENOXAPARIN SODIUM 40 MG/0.4 ML SYRINGE SUBQ (08:27)
[2024-05-25 09:07] LABS: Thyroid Stimulating Hormone 1.864 uIU/mL (0.358-3.740)
[2024-05-25] MEDS: PROMETHAZINE HCL 25 MG in 0.9 % SODIUM CHLORIDE 50 ML 204 MG IV ×2 (09:44→18:43)
--- NOTE | 2024-05-25 10:13 | CM.NOTE ---
Rounds made with Dr. Shell. Dr Shell discussed plan of treatment and labs with Alva. Alva verbalized understanding. No discharge for today.
--- NOTE | 2024-05-25 10:39 | PM.IMPN1 ---
Progress Note: A&P Assessment and Plan (1) Ulcerative colitis, acute: Assessment and Plan: Slight improvement clinically with now patient able to tolerate PO diet a little.but she is still quite nauseous and has had a few episodes of vomiting overnight. She is currently on IV Zosyn, systemic steroids for possible flareup of ulcerative colitis. She is also on p.o. vancomycin as she has had prior history of C. difficile colitis Qualifiers: Digestive disease complication type: with rectal bleeding Qualified Code(s): K51.911 - Ulcerative colitis, unspecified with rectal bleeding (2) Hyponatremia: Assessment and Plan: Hyponatremia noted on labs earlier today. Serum sodium was only 125. Ordered 1 L of IV bolus normal saline. Will recheck serum sodium at noon. Ordered urine sodium, urine creatinine and urine osmolarity. (3) Intractable nausea and vomiting: Assessment and Plan: Slight improvement in clinical status with now able to tolerate little food. Still nauseous. Continue with as needed diet. (4) Depression: Assessment and Plan: Continue with home medications. Qualifiers: Depression Type: unspecified Qualified Code(s): F32.A - Depression, unspecified (5) Scoliosis: Assessment and Plan: Stable. Unchanged. Qualifiers: Scoliosis type: thoracogenic Spinal region: thoracolumbar Qualified Code(s): M41.35 - Thoracogenic scoliosis, thoracolumbar region Internal Medicine - PN: Subj Subjective Interval history: Seen and examined. Patient reports that her abdominal pain is more or less gone. She is a still nauseous and had few episodes of bilious vomiting. She was able to tolerate and keep little food down. She still reports poor appetite and persistent nausea. Exam Constitutional Vital Signs, click to edit/add: Last Vital Signs Temp 98.0 F 05/25/24 07:49 Pulse 66 05/25/24 07:49 Resp 18 05/25/24 07:49 BP 162/94 H 05/25/24 07:49 Pulse Ox 99 05/25/24 07:49 O2 Del Method Room Air 05/25/24 07:49 General appearance: cooperative and comfortable Respiratory Common normals: normal respiratory effort, no use of accessory muscles and clear to auscultation bilaterally Cardio Common normals: no JVD, regular rhythm, S1 normal heart sound and S2 normal heart sound GI Common normals: Normal to inspection, nondistended, normoactive bowel sounds present and no hepatosplenomegaly Other: Mild generalized abdominal tenderness Back & Pelvis Other: Severe scoliosis of spine Extremity Common normals: normal to inspection and full ROM Neuro Common normals: oriented x3, moves all extremities, no focal motor deficits and gait normal Psych Common normals: mental status grossly normal, thought process normal, denies homicidal ideation and denies suicidal ideation Internal Medicine - PN: Obj Da Labs Labs: Laboratory Results - last 24 hr 05/25/24 05:55 WBC 14.9 H RBC 4.79 Hgb 12.0 Hct 37.4 MCV 78.1 L MCH 25.1 L MCHC 32.1 RDW 14.6 Plt Count 277 MPV 10.4 Seg Neuts % (Manual) 99.0 H Lymphocytes % (Manual) 1.0 L Monocytes % (Manual) 0.0 L Eosinophils % (Manual) 0.0 L Basophils % (Manual) 0.0 L Neutrophils # (Manual) 14.75 H Lymphocytes # (Manual) 0.14 L Monocytes # (Manual) 0.00 L Eosinophils # (Manual) 0.00 Basophils # (Manual) 0.00 Sodium 125 L Potassium 3.8 Chloride 91 L Carbon Dioxide 23.1 Anion Gap 14.7 BUN 5.0 L Creatinine 0.82 Est GFR ( Amer) >60 Est GFR (Non-Af Amer) >60 BUN/Creatinine Ratio 6.1 Glucose 131 H Calcium 9.0 Total Bilirubin 0.9 AST 18 ALT 16 Alkaline Phosphatase 65 Total Protein 8.4 H Albumin 3.8 Globulin 4.6 Albumin/Globulin Ratio 0.8 TSH 1.864
[2024-05-25 13:47] LABS: Anion Gap 15.3; BUN Creatinine Ratio 5.9; Calcium 8.9 mg/dL (8.5-10.1); Carbon Dioxide 22.8 mmol/L (21.0-32.0); Chloride 95 mmol/L (98-107); Estimated GFR (African America >60 (>=60 mL/min/1.73m^2); Estimated GFR (Non-African Ame >60 (>=60 mL/min/1.73m^2); Glucose 138 mg/dL (74-106); Potassium 4.1 mmol/L (3.5-5.1); Sodium 129 mmol/L (136-145)
[2024-05-26] MEDS: METHYLPREDNISOLONE SOD SUCC PF 40 MG/ML VIAL IVP ×2 (03:09→09:00)
[2024-05-26 03:57] VITALS: O2SAT 97
[2024-05-26 04:25] LABS: Creatinine Urine Random 40.71 mg/dL (20.00-300.00); Sodium Urine Random 182 mmol/L (30-90)
[2024-05-26] MEDS: POTASSIUM CHLORIDE/D5-0.9%NACL 1,000 ML 125 ML IV (05:16)
[2024-05-26] MEDS: PIPERACILLIN SODIUM/TAZOBACTAM 3.375 GM in 0.9 % SODIUM CHLORIDE 50 ML IV (05:17)
[2024-05-26] MEDS: VANCOMYCIN HCL 7,500 MG/150 ML BOTTLE 125 MG PO ×2 (05:17→12:35)
[2024-05-26 05:54] VITALS: BP 134/82; PULSE 71; TEMP 36.6; O2SAT 97
[2024-05-26 06:03] LABS: Basophils Percent Auto 0.1 % (0.2-2.0); Hematocrit 37.3 % (36.0-48.0); Immature Granulocytes Abs Auto 0.08 10^3/uL (0.00-0.03); Immature Granulocytes Pct Auto 0.5 % (0.0-0.5); Lymphocytes Absolute Auto 0.9 10^3/uL (1.2-3.8); Lymphocytes Percent Auto 5.6 % (20.5-60.0); Mean Corpuscular HGB Conc 32.2 g/dL (29.9-35.2); Mean Corpuscular Hemoglobin 24.8 pg (26.7-34.0); Mean Corpuscular Volume 77.2 fL (81.0-99.0); Mean Platelet Volume 10.8 fL (9.5-13.5); Monocytes Absolute Auto 0.7 10^3/uL (0.3-0.8); Monocytes Percent Auto 4.5 % (1.7-12.0); Neutrophils Absolute Auto 13.7 10^3/uL (1.4-6.5); Neutrophils Percent Auto 89.3 % (43.0-75.0); Platelet Count 329 10^3/uL (150-450); Red Blood Count 4.83 10^6/uL (4.20-5.40); Red Cell Distribution Width 14.7 % (11.0-15.0); White Blood Count 15.3 10^3/uL (4.0-11.0)
[2024-05-26 06:14] LABS: Alanine Aminotransferase 13 U/L (14-59); Albumin Globulin Ratio 0.9; Albumin Level 3.5 g/dL (3.4-5.0); Alkaline Phosphatase 60 U/L (46-116); Anion Gap 13.1; Aspartate Amino Transferase 15 U/L (15-37); BUN Creatinine Ratio 7.1; Bilirubin Total 0.8 mg/dL (0.2-1.0); Calcium 8.7 mg/dL (8.5-10.1); Carbon Dioxide 21.9 mmol/L (21.0-32.0); Chloride 95 mmol/L (98-107); Estimated GFR (African America >60 (>=60 mL/min/1.73m^2); Estimated GFR (Non-African Ame >60 (>=60 mL/min/1.73m^2); Globulin 4.1 g/dL; Glucose 126 mg/dL (74-106); Sodium 126 mmol/L (136-145); Total Protein 7.6 g/dL (6.4-8.2)
[2024-05-26] MEDS: ESCITALOPRAM 10 MG TABLET 5 MG PO (09:00)
[2024-05-26] MEDS: ENOXAPARIN SODIUM 40 MG/0.4 ML SYRINGE SUBQ (09:01)
[2024-05-26] MEDS: PROMETHAZINE HCL 25 MG in 0.9 % SODIUM CHLORIDE 50 ML 204 MG IV (09:17)
--- NOTE | 2024-05-26 09:37 | CM.NOTE ---
Rounds made with Dr. Shell, discussed with pt possible discharge this afternoon if able to keep down diet. No discharge needs identified.
[2024-05-26 11:50] VITALS: O2SAT 94
[2024-05-26 13:13] LABS: Anion Gap 15.2; BUN Creatinine Ratio 9.4; Carbon Dioxide 21.7 mmol/L (21.0-32.0); Chloride 95 mmol/L (98-107); Estimated GFR (African America >60 (>=60 mL/min/1.73m^2); Estimated GFR (Non-African Ame >60 (>=60 mL/min/1.73m^2); Glucose 137 mg/dL (74-106); Potassium 3.9 mmol/L (3.5-5.1); Sodium 128 mmol/L (136-145)
--- NOTE | 2024-05-26 13:25 | PM.DS1 ---
DS: Providers Provider Date of admission: 05/24/24 09:38 Primary care physician: GEOVANNI RIVERS Admitting clinician: Shaikh Suleman Attending physician on admission: Shaikh Suleman Attending physician on discharge: Shaikh Suleman Discharging clinician: Shaikh Suleman Anticipated date of discharge: 05/26/24 DS: Diagnosis Discharge Diagnosis (1) Ulcerative colitis, acute: Qualifiers: Digestive disease complication type: with rectal bleeding Qualified Code(s): K51.911 - Ulcerative colitis, unspecified with rectal bleeding (2) Hyponatremia: (3) Intractable nausea and vomiting: (4) Depression: Qualifiers: Depression Type: unspecified Qualified Code(s): F32.A - Depression, unspecified (5) Scoliosis: Qualifiers: Scoliosis type: thoracogenic Spinal region: thoracolumbar Qualified Code(s): M41.35 - Thoracogenic scoliosis, thoracolumbar region DS: Summary Time Spent with Patient Time attestation: Total time spent providing and/or coordinating discharge services: Exam Constitutional Vital Signs, click to edit/add: Last Vital Signs Temp 97.9 F 05/26/24 05:54 Pulse 71 05/26/24 05:54 Resp 16 05/26/24 05:54 BP 134/82 05/26/24 05:54 Pulse Ox 94 L 05/26/24 11:50 O2 Del Method Room Air 05/26/24 11:50 General appearance: cooperative and comfortable Respiratory Common normals: normal respiratory effort, no use of accessory muscles and clear to auscultation bilaterally Cardio Common normals: no JVD, regular rhythm, S1 normal heart sound and S2 normal heart sound GI Common normals: Normal to inspection, nondistended, normoactive bowel sounds present, non-tender and no hepatosplenomegaly Back & Pelvis Other: Severe scoliosis of spine Extremity Common normals: normal to inspection and full ROM Neuro Common normals: oriented x3, moves all extremities, no focal motor deficits and gait normal Psych Common normals: mental status grossly normal, thought process normal, denies homicidal ideation and denies suicidal ideation DS: Data Data Completed and Pending Labs on day of discharge: Labs from last 24 hours 05/26/24 05/26/24 05/26/24 12:06 05:27 03:32 WBC 15.3 H RBC 4.83 Hgb 12.0 Hct 37.3 MCV 77.2 L MCH 24.8 L MCHC 32.2 RDW 14.7 Plt Count 329 MPV 10.8 Neut % (Auto) 89.3 H Lymph % (Auto) 5.6 L [place] % (Auto) 4.5 Eos % (Auto) 0.0 L Baso % (Auto) 0.1 L Neut # (Auto) 13.7 H Lymph # (Auto) 0.9 L [place] # (Auto) 0.7 Eos # (Auto) 0.0 Baso # (Auto) 0.0 Abs Immat Gran (auto) 0.08 H Imm/Tot Granulo (auto) 0.5 Sodium 128 L 126 L Potassium 3.9 4.0 Chloride 95 L 95 L Carbon Dioxide 21.7 21.9 Anion Gap 15.2 13.1 BUN 8.0 6.0 L Creatinine 0.85 0.84 Est GFR ( Amer) >60 >60 Est GFR (Non-Af Amer) >60 >60 BUN/Creatinine Ratio 9.4 7.1 Glucose 137 H 126 H Calcium 9.0 8.7 Total Bilirubin 0.8 AST 15 ALT 13 L Alkaline Phosphatase 60 Total Protein 7.6 Albumin 3.5 Globulin 4.1 Albumin/Globulin Ratio 0.9 Ur Random Creatinine 40.71 Ur Random Sodium 182 H 05/25/24 13:19 WBC RBC Hgb Hct MCV MCH MCHC RDW Plt Count MPV Neut % (Auto) Lymph % (Auto) [place] % (Auto) Eos % (Auto) Baso % (Auto) Neut # (Auto) Lymph # (Auto) [place] # (Auto) Eos # (Auto) Baso # (Auto) Abs Immat Gran (auto) Imm/Tot Granulo (auto) Sodium 129 L Potassium 4.1 Chloride 95 L Carbon Dioxide 22.8 Anion Gap 15.3 BUN 5.0 L Creatinine 0.85 Est GFR ( Amer) >60 Est GFR (Non-Af Amer) >60 BUN/Creatinine Ratio 5.9 Glucose 138 H Calcium 8.9 Total Bilirubin AST ALT Alkaline Phosphatase Total Protein Albumin Globulin Albumin/Globulin Ratio Ur Random Creatinine Ur Random Sodium Discharge Plan Discharge Disposition: Home, Self-Care Discharge Medications: New amoxicillin-pot clavulanate 875-125 mg tablet 1 tab PO BID Qty: 14 0RF prednisone 20 mg tablet 20 mg PO BID 5 Days Qty: 10 0RF ondansetron 4 mg tablet,disintegrating 4 mg PO Q8H PRN (Reason: nausea and vomiting) Qty: 10 0RF oxycodone-acetaminophen [Percocet] 5-325 mg tablet 1 tab PO Q6H PRN (Reason: pain) 3 Days Qty: 10 0RF vancomycin 125 mg capsule 125 mg PO Q6H 7 Days Qty: 28 0RF Continued hyoscyamine sulfate 0.125 mg tablet, sublingual 0.125 mg PO PRN mesalamine 400 mg capsule (with del rel tablets) 400 mg PO TID escitalopram oxalate 5 mg tablet 5 mg PO DAILY Activity: increase activity as tolerated Diet: advance to your usual diet Print Language: [place] Citizen Forms: Portal Instructions Follow Up Appointments: Dr Rivers 2023 at 1:40pm [phone]
--- NOTE | 2024-05-26 13:30 | P.DS_ITS ---
DS: Providers Provider Date of admission: 05/24/24 09:38 Primary care physician: GEOVANNI RIVERS Admitting clinician: Shaikh Suleman Attending physician on admission: Shaikh Suleman Attending physician on discharge: Shaikh Suleman Discharging clinician: Shaikh Suleman Anticipated date of discharge: 05/26/24 DS: Diagnosis Discharge Diagnosis (1) Ulcerative colitis, acute: Qualifiers: Digestive disease complication type: with rectal bleeding Qualified Code(s): K51.911 - Ulcerative colitis, unspecified with rectal bleeding (2) Hyponatremia: (3) Intractable nausea and vomiting: (4) Depression: Qualifiers: Depression Type: unspecified Qualified Code(s): F32.A - Depression, unspecified (5) Scoliosis: Qualifiers: Scoliosis type: thoracogenic Spinal region: thoracolumbar Qualified Code(s): M41.35 - Thoracogenic scoliosis, thoracolumbar region DS: Summary Hospital Course Hospital Course: 49-year-old female with history of ulcerative colitis presented with nausea, vomiting and diarrhea for 2 to 3 days. She reported inability to tolerate oral diet because of nausea. She also reported seeing small amount of blood in her stools. She has history of ulcerative colitis, recently diagnosed in January 2024. She was started on mesalamine but she could not tolerate it. Patient was to added on IV fluids, IV Zofran as needed for nausea and vomiting. CT abdomen pelvis showed wall thickening throughout the colon consistent with colitis. She was started on IV Solu-Medrol for possible ulcerative colitis exacerbation. She was also empirically treated with IV ciprofloxacin and Flagyl which was subsequently changed to IV Zosyn because of patient's intolerance to Flagyl. Given her prior history of C. difficile, she was empirically treated with p.o. vancomycin. Of note patient did not have diarrhea during the course of admission and as a result we could not test her for C. difficile. Patient gradually improved clinically over the course of admission and was able to tolerate p.o. diet. She is still feels intermittent nausea but overall improved on current treatment. Patient is medically stable for discharge on oral Augmentin to finish the treatment course for colitis. Will also empirically treat her for C. difficile colitis p.o. vancomycin. She will need to finish oral prednisone taper and follow-up with her PCP within 1 week. I discharge her on oral Zofran and Percocet as needed for supportive measures and pain and nausea control while at home. Patient was instructed to return to ED if she had worsening symptoms, intractable nausea or vomiting or worsening abdominal pain. Status at Discharge Functional status at discharge: independent ambulation Overall status at discharge: patient is progressing back to baseline Time Spent with Patient Time attestation: Total time spent providing and/or coordinating discharge services: Exam Constitutional Vital Signs, click to edit/add: Last Vital Signs Temp 97.9 F 05/26/24 05:54 Pulse 71 05/26/24 05:54 Resp 16 05/26/24 05:54 BP 134/82 05/26/24 05:54 Pulse Ox 94 L 05/26/24 11:50 O2 Del Method Room Air 05/26/24 11:50 General appearance: cooperative and comfortable Respiratory Common normals: normal respiratory effort, no use of accessory muscles and clear to auscultation bilaterally Cardio Common normals: no JVD, regular rhythm, S1 normal heart sound and S2 normal heart sound GI Common normals: Normal to inspection, nondistended, normoactive bowel sounds present, non-tender and no hepatosplenomegaly Back & Pelvis Other: Severe scoliosis of spine Extremity Common normals: normal to inspection and full ROM Neuro Common normals: oriented x3, moves all extremities, no focal motor deficits and gait normal Psych Common normals: mental status grossly normal, thought process normal, denies homicidal ideation and denies suicidal ideation DS: Data Data Completed and Pending Labs on day of discharge: Labs from last 24 hours 05/26/24 05/26/24 05/26/24 12:06 05:27 03:32 WBC 15.3 H RBC 4.83 Hgb 12.0 Hct 37.3 MCV 77.2 L MCH 24.8 L MCHC 32.2 RDW 14.7 Plt Count 329 MPV 10.8 Neut % (Auto) 89.3 H Lymph % (Auto) 5.6 L Forest % (Auto) 4.5 Eos % (Auto) 0.0 L Baso % (Auto) 0.1 L Neut # (Auto) 13.7 H Lymph # (Auto) 0.9 L Forest # (Auto) 0.7 Eos # (Auto) 0.0 Baso # (Auto) 0.0 Abs Immat Gran (auto) 0.08 H Imm/Tot Granulo (auto) 0.5 Sodium 128 L 126 L Potassium 3.9 4.0 Chloride 95 L 95 L Carbon Dioxide 21.7 21.9 Anion Gap 15.2 13.1 BUN 8.0 6.0 L Creatinine 0.85 0.84 Est GFR ( Amer) >60 >60 Est GFR (Non-Af Amer) >60 >60 BUN/Creatinine Ratio 9.4 7.1 Glucose 137 H 126 H Calcium 9.0 8.7 Total Bilirubin 0.8 AST 15 ALT 13 L Alkaline Phosphatase 60 Total Protein 7.6 Albumin 3.5 Globulin 4.1 Albumin/Globulin Ratio 0.9 Ur Random Creatinine 40.71 Ur Random Sodium 182 H 05/25/24 13:19 WBC RBC Hgb Hct MCV MCH MCHC RDW Plt Count MPV Neut % (Auto) Lymph % (Auto) Forest % (Auto) Eos % (Auto) Baso % (Auto) Neut # (Auto) Lymph # (Auto) Forest # (Auto) Eos # (Auto) Baso # (Auto) Abs Immat Gran (auto) Imm/Tot Granulo (auto) Sodium 129 L Potassium 4.1 Chloride 95 L Carbon Dioxide 22.8 Anion Gap 15.3 BUN 5.0 L Creatinine 0.85 Est GFR ( Amer) >60 Est GFR (Non-Af Amer) >60 BUN/Creatinine Ratio 5.9 Glucose 138 H Calcium 8.9 Total Bilirubin AST ALT Alkaline Phosphatase Total Protein Albumin Globulin Albumin/Globulin Ratio Ur Random Creatinine Ur Random Sodium Discharge Plan Discharge Disposition: Home, Self-Care Discharge Medications: New amoxicillin-pot clavulanate 875-125 mg tablet 1 tab PO BID Qty: 14 0RF prednisone 20 mg tablet 20 mg PO BID 5 Days Qty: 10 0RF ondansetron 4 mg tablet,disintegrating 4 mg PO Q8H PRN (Reason: nausea and vomiting) Qty: 10 0RF oxycodone-acetaminophen [Percocet] 5-325 mg tablet 1 tab PO Q6H PRN (Reason: pain) 3 Days Qty: 10 0RF vancomycin 125 mg capsule 125 mg PO Q6H 7 Days Qty: 28 0RF Continued hyoscyamine sulfate 0.125 mg tablet, sublingual 0.125 mg PO PRN mesalamine 400 mg capsule (with del rel tablets) 400 mg PO TID escitalopram oxalate 5 mg tablet 5 mg PO DAILY Activity: increase activity as tolerated Diet: advance to your usual diet Print Language: Portuguese Forms: Portal Instructions Follow Up Appointments: Dr Rivers 2023 at 1:40pm [phone]
--- NOTE | 2024-05-29 14:45 | CM.DCFOLLOWU ---
Person spoke with: Alva How are you feeling? Much better How is your pain? No pain Did you understand your discharge instructions? Yes Do you have any questions about your discharge instructions? No Were you given any prescriptions at discharge? Yes Were you able to get your prescriptions filled? Yes Do you understand how to take your medications as ordered? Yes Do you have any questions about your follow up appointment and do you plan to keep your follow up appointment? It is scheduled and I plan on going Is there anything else that you would like to discuss? No Questions/Comments/Concerns/Other:
[2024-05-31 11:09] LABS: Osmolality, Urine 513 mOsmol/kg (.)
== END 2024-05-26 14:35 | disposition home or self-care (01) | DRG 245 ==
LOC: ER 19:41 → MS 05-23 06:27
PROVIDERS: Emergency Medicine; Registered Nurse; Admitting Provider Internal Medicine; Emergency Provider Internal Medicine; PCP Internal Medicine; Visit Provider Internal Medicine
DX: K51.911 Ulcerative colitis, unspecified with rectal bleeding (principal); E87.1 Hypo-osmolality and hyponatremia; F32.A Depression, unspecified; M41.35 Thoracogenic scoliosis, thoracolumbar region; R11.2 Nausea with vomiting, unspecified; Z87.891 Personal history of nicotine dependence; Z79.899 Other long term (current) drug therapy
CPT/HCPCS: 36415; 74177; 80048; 80053; 80076; 81001; 82150; 82570; 83690; 83735; 83935; 84300; 84443; 84703; 85007; 85025; 85027; 87493; 94761; 96361; 96365; 96375; 96376; 99285; J0744; J1650; J1836; J2250; J2270; J2405; J2543; J2765; J2919; Q9967

== ENCOUNTER 2024-11-09 13:27 | Outpatient (OUT) | payer OTHER, SELFPAY ==
--- OUTSIDE RECORDS SUMMARY | 2024-11-09 13:48 | XMS_ITS | CCD ---
Author Organization [facility] CliniSynv Care Team Providers Care Copy Machine Operator Name Role Phone PANCHITO JUAREZ Admitting Unavailable PANCHITO JUAREZ Attending Unavailable LEONEL AVALOS Primary Care Unavailable PANCHITO JUAREZ Consulting Unavailable CLARK THOMAS Consulting Unavailable KAYLIN WEBSTER Consulting Unavailable CANDE RAND Referring Unavailable KUNS, CANDE Reyes Primary Care Unavailable YUHAS, GEOVANNI Machado Primary Care Unavailable JACKELYN WESTON Attending Unavailable YUHAS, GEOVANNI Machado Admitting Unavailable YUHAS, GEOVANNI Machado Attending Unavailable YUHAS, GEOVANNI Machado Primary Care Unavailable YUHAS, GEOVANNI Machado Primary Care Unavailable CLIVE RAHMAN Attending Unavailable YUHAS, GEOVANNI Machado Referring Unavailable YUHAS, GEOVANNI Machado Primary Care Unavailable KUNCANDE Arita Attending Unavailable KUNSCANDE Referring Unavailable KUNS, CANDE ESPINAL Primary Care Unavailable KUNSCANDE Attending Unavailable KUNSCANDE Referring Unavailable KUNS, CANDE ESPINAL Primary Care Unavailable YUHAS, GEOVANNI Machado Attending Unavailable YUHAS, GEOVANNI Machado Referring Unavailable YUHAS, GEOVANNI L Primary Care Unavailable YUHAS, GEOVANNI Machado Attending Unavailable YUHAS, GEOVANNI Machado Referring Unavailable YUHAS, GEOVANNI L Primary Care Unavailable YUHAS, GEOVANNI L Attending Unavailable YUHAS, GEOVANNI L Referring Unavailable YUHAS, GEOVANNI L Primary Care Unavailable YUHAS, GEOVANNI L Attending Unavailable YUHAS, GEOVANNI L Referring Unavailable YUHAS, GEOVANNI L Primary Care Unavailable YUHAS, GEOVANNI L Attending Unavailable YUHAS, GEOVANNI L Referring Unavailable YUHAS, GEOVANNI L Primary Care Unavailable YUHAS, GEOVANNI L Attending Unavailable YUHAS, GEOVANNI L Referring Unavailable YUHAS, GEOVANNI L Primary Care Unavailable Yuhas Geovanni ESTEVEZ Primary Care Provider [employer] 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 05/31/2024 Active Start: 02-10-2024 End: 03-08-2024 take 1 tablet by mouth in the morning, then take 1 tablet by mouth at bedtime dicyclomine (BENTYL) 20 mg tablet Take 1 tablet (20 mg total) by mouth in the morning and 1 tablet (20 mg total) before bedtime. 20 tablet 02/10/2024 03/08/2024 Discontinued (Stop Taking at Discharge) famotidine 40 mg oral tablet (4 sources) Histamine-2 Receptor Antagonist Start: 05-31-2024 End: 06-27-2024 take 1 tablet by mouth once daily famotidine (PEPCID) 40 mg tablet Indications: Heartburn Take 1 tablet (40 mg total) by mouth nightly. 90 tablet 1 06/27/2024 Active mesalamine 400 mg delayed release oral capsule (9 sources) Aminosalicylate Start: 04-25-2024 End: 06-27-2024 take 1 capsule by mouth in the morning, then take 1 capsule by mouth at mealtime mesalamine (DELZICOL) 400 mg capsule (with del rel tablets) DR capsule Indications: IBD (inflammatory bowel disease) Take 1 capsule (400 mg total) by mouth in the morning and 1 capsule (400 mg total) in the evening. Take with meals. 60 capsule 1 06/27/2024 Active Start: 04-19-2024 take 1 tablet by yvonne th once daily at breakfast mesalamine (LIALDA) 1.2 gram EC tablet Indications: IBD (inflammatory bowel disease) Take 1 tablet (1.2 g total) by mouth daily with breakfast. 30 tablet 1 04/19/2024 Active ondansetron 4 mg disintegrating oral tablet (5 sources) Serotonin-3 Receptor Antagonist Start: 12-27-2023 ondansetron ODT (ZOFRAN ODT) 4 mg disintegrating tablet DISSOLVE 1 (ONE) TABLET ON THE TONGUE EVERY 6 HOURS NEEDED FOR NAUSEA AND VOMITING 12/27/2023 Active promethazine hydrochloride 25 mg oral tablet (6 sources) Phenothiazine Start: 05-31-2024 End: 06-05-2024 take 1 tablet by mouth every eight hours as needed for nausea and vomiting promethazine (PHENERGAN) 25 mg tablet Take 1 tablet (25 mg total) by mouth every 8 (eight) hours as needed for nausea or vomiting for up to 5 days. 15 tablet 05/31/2024 06/05/2024 Active Start: 05-09-2024 End: 06-27-2024 promethazine (PHENERGAN) 12. 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 12 each 05/09/2024 06/27/2024 Discontinued (Therapy completed) Start: 02-11-2024 End: 03-16-2024 take 12.5 mg rectal route every six hours as needed PROMETHEGAN 12.5 mg suppository Insert 1 suppository (12.5 mg total) into the rectum every 6 (six) hours as needed. 02/11/2024 03/16/2024 Discontinued (Therapy completed) Completed/Discontinued Medications Medication Drug Class(es) Dates Sig (Normalized) Sig (Original) acetaminophen 325 mg / HYDROcodone bitartrate 5 mg oral tablet (2 sources) Opioid Agonist Start: 01-19-2024 End: 02-08-2024 take 1 tablet by mouth every six hours as needed for pain HYDROcodone-acetami nophen (NORCO) 5-325 mg per tablet TAKE 1 TABLET BY MOUTH EVERY 6 HOURS NEEDED FOR PAIN 01/19/2024 02/08/2024 Discontinued (Therapy completed) acetaminophen 325 mg / oxyCODONE hydrochloride 5 mg oral tablet (1 source) Opioid Agonist Start: 05-26-2024 End: 05-31-2024 take 1 tablet by mouth every six hours as needed for pain oxyCODONE-acetamino phen (PERCOCET) 5-325 mg per tablet TAKE 1 TABLET BY MOUTH EVERY 6 HOURS NEEDED FOR PAIN FOR 3 DAYS 05/26/2024 05/31/2024 Discontinued (Therapy completed) escitalopram 5 mg oral tablet (15 sources) Serotonin Reuptake Inhibitor Start: 06-28-2023 End: 06-27-2024 take 1 tablet by mouth in the morning escitalopram (LEXAPRO) 5 mg tablet Indications: Reactive depression Take 1 tablet (5 mg total) by mouth in the morning. 90 tablet 1 01/07/2024 06/27/2024 Discontinued (Therapy completed) hyoscyamine sulfate 0.125 mg sublingual tablet (7 sources) Start: 12-25-2023 End: 03-08-2024 take 1 tablet by mouth every eight hours as needed hyoscyamine (LEVSIN) 0.125 mg SL tablet Take 1 tablet (125 mcg total) by mouth every 8 (eight) hours as needed for cramping. 30 tablet 1 01/24/2024 03/08/2024 Discontinued (Stop Taking at Discharge) metroNIDAZOLE 500 mg oral tablet (4 sources) Nitroimidazole Antimicrobial Start: 12-25-2023 End: 01-27-2024 take 1 tablet by mouth every eight hours metroNIDAZOLE (FLAGYL) 500 mg tablet TAKE 1 TABLET BY MOUTH EVERY 8 HOURS FOR 7 DAYS 12/25/2023 01/27/2024 Discontinued (Therapy completed) peg 3350-sod sulf,spcy-nlj-fzw 178.7-7.3-0.5 gram recon soln (1 source) Start: 02-27-2024 End: 03-08-2024 peg 3350-sod sulf,hauv-fwp-sfl 178.7-7.3-0.5 gram recon soln Indications: Colitis due to Clostridioides difficile Take one container twice as directed by scheduled instructions 2 each 02/27/2024 03/08/2024 Discontinued polyethylene glycol 3350 779213 mg / potassium chloride 2970 mg / sodium bicarbonate 6740 mg / sodium chloride 5860 mg / sodium sulfate 32586 mg powder for oral solution (1 source) Osmotic Laxative Start: 03-06-2024 End: 03-08-2024 polyethylene glycol (GOLYTELY) 236-22.74-6.74 -5.86 gram solution Indications: Screen for colon cancer Take 240 mL by mouth every 1 (one) hour. 4000 mL 03/06/2024 03/08/2024 Discontinued predniSONE 10 mg oral tablet (2 sources) Start: 01-13-2024 End: 02-08-2024 take 4 tablets by mouth once daily, then take 3 tablets by mouth once daily, then take 2 tablets by mouth once daily, then take 1 tablet by mouth once daily, then take 0.5 tablet by mouth once daily predniSONE (DELTASONE) 10 mg tablet TAKE 4 TABLETS BY MOUTH DAILY FOR 3 DAYS, then TAKE 3 TABLETS BY MOUTH DAILY FOR 3 DAYS, then TAKE 2 TABLETS BY MOUTH DAILY FOR 3 DAYS, then TAKE 1 TABLET BY MOUTH DAILY FOR 3 DAYS, then TAKE 1/2 (ONE-HALF) OF A TABLET BY MOUTH DAILY FOR 4 DAYS 01/13/2024 02/08/2024 Discontinued (Therapy completed) sulfaSALAzine 500 mg oral tablet (2 sources) Aminosalicylate Start: 03-16-2024 End: 04-19-2024 sulfaSALAzine (AZULFIDINE) 500 mg tablet Indications: IBD (inflammatory bowel disease) Take 1 tablet (500 mg total) by mouth in the morning and 1 tablet (500 mg total) at noon and 1 tablet (500 mg total) in the evening and 1 tablet (500 mg total) before bedtime. 120 tablet 2 03/16/2024 04/19/2024 Discontinued (Side effects) vancomycin 125 mg oral capsule (2 sources) Glycopeptide Antibacterial Start: 01-13-2024 End: 02-08-2024 vancomycin (VANCOCIN) 125 mg capsule Take 1 capsule (125 mg total) by mouth in the morning and 1 capsule (125 mg total) at noon and 1 capsule (125 mg total) in the evening and 1 capsule (125 mg total) before bedtime. 01/13/2024 02/08/2024 Discontinued (Therapy completed) Problems Active Problems Problem Classification Problem Date Documented Da te Episodic/Chronic Chronic obstructive pulmonary disease and bronchiectasis (1 source) Bronchitis, not specified as acute or chronic; Translations: [BRONCHITIS NOT SPEC ACUTE/CHRON] Onset: 0 Episodic Fever of unknown origin (1 source) Fever, unspecified; Translations: [FEVER UNSPECIFIED] Onset: 0 Episodic Mood disorders (16 sources) Major depressive disorder, single episode, unspecified; Translations: [Reactive depression (situational)] Onset: 4 01-07-2024 Chronic Nausea and vomiting (4 sources) Nausea; Translations: [Vomiting] Onset: 4 05-31-2024 Episodic Other acquired deformities (1 source) Scoliosis, unspecified; Translations: [SCOLIOSIS UNSPECIFIED] Onset: 0 Chronic Other gastrointestinal disorders (1 source) Heartburn; Translations: [Heartburn] Onset: 4 Episodic Other lower respiratory disease (4 sources) Cough; Translations: [COUGH] Onset: 0 Episodic Other upper respiratory infections (1 source) Chronic sinusitis, unspecified; Translations: [CHRONIC SINUSITIS UNSPECIFIED] Onset: 0 Chronic Regional enteritis and ulcerative colitis (2 sources) 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; Translations: [Proctosigmoiditis] Onset: 4 05-31-2024 Chronic Screening and history of mental health and substance abuse codes (1 source) Personal history of nicotine dependence; Translations: [PERSONAL HISTORY OF NICOTINE DEPEND] Onset: 0 Episodic Unclassified (2 sources) GI Problem Onset: 4 Unclassified (1 source) Hospital Follow-up Onset: 4 Past or Other Problems Problem Classification Problem Date Documented Da te Episodic/Chronic Abdominal pain (1 source) Abdominal pain Onset: 02-10-2024 Episodic Fluid and electrolyte disorders (5 sources) Hypokalemia; Translations: [Hypokalemia] Onset: 01-07-2024 01-07-2024 Episodic Intestinal infection (12 sources) Enterocolitis due to Clostridium difficile, not specified as recurrent; Translations: [Clostridium difficile colitis] Onset: 02-27-2024 01-27-2024 Episodic Mood disorders (14 sources) Mood disorders Onset: 01-27-2024 Resolved: 06-27-2024 01-27-2024 Noninfectious gastroenteritis (9 sources) Noninfective gastroenteritis and colitis, unspecified; Translations: [Colitis] Onset: 01-07-2024 01-07-2024 Episodic Other circulatory disease (1 source) Hypotension, unspecified; Translations: [Hypotension, unspecified] Onset: 02-08-2024 Episodic Other circulatory disease (1 source) Low blood pressure; Translations: [Hypotension, unspecified] 02-08-2024 Episodic Other gastrointestinal disorders (2 sources) Heartburn; Translations: [Heartburn] 05-31-2024 Episodic Other screening for suspected conditions (not mental disorders or infectious disease) (2 sources) Encounter for screening for malignant neoplasm of colon; Translations: [Patient encounter status] Onset: 01-07-2024 01-07-2024 Episodic Results Test Name Value Interpretation Reference Range Facility CBC AND AUTO DIFFon 05-31-20 24 ABSOLUTE BASOPHIL 0.0 X10E9/L Normal 0.0-0.2 [facility] Comment on above: Performed By: #### C BCA, CMP #### [facility] ([id number]) [address] [place] [address] 38973 ABSOLUTE NEUTROPHIL 8.6 X10E9/L High 1.5-6.6 [facility] Comment on above: Performed By: #### C BCA, CMP #### [facility] ([id number]) [address] [place] [address] 09251 Basophils/100 WBC (Bld) 0.2 % Normal [facility] Comment on above: Performed By: #### C BCA, CMP #### [facility] ([id number]) [address] [place] [address] 75600 Eosinophils (Bld) [#/Vol] 0.0 10*3/uL Normal 0.0-0.4 [facility] Comment on above: Performed By: #### C BCA, CMP #### [facility] ([id number]) [address] [place] [address] 22212 Eosinophils/100 WBC (Bld) 0.1 % Normal [facility] Comment on above: Performed By: #### C BCA, CMP #### [facility] ([id number]) [address] [place] [address] 39839 Erythrocyte distribution width (RBC) [Ratio] 15.5 % High 11.5-15.0 [facility] Comment on above: Performed By: #### C BCA, CMP #### [facility] ([id number]) [address] [place] [address] 46948 Hematocrit (Bld) [Volume fraction] 35.2 % Normal 35-47 [facility] Comment on above: Performed By: #### C BCA, CMP #### [facility] ([id number]) [address] [place] [address] 17319 Hemoglobin (Bld) [Mass/Vol] 11.3 g/dL Low 11.7-15.5 [facility] Comment on above: Performed By: #### C ROMERO, CMP #### [facility] ([id number]) [address] [place] [address] 32908 Lymphocytes (Bld) [#/Vol] 1.3 10*3/uL Normal 1.0-3.5 [facility] Comment on above: Performed By: #### C ROMERO, CMP #### [facility] ([id number]) [address] [place] [address] 96820 Lymphocytes/100 WBC (Bld) 11.4 % Normal [facility] Comment on above: Performed By: #### C ROMERO, CMP #### [facility] ([id number]) [address] [place] [address] 22698 MCH (RBC) [Entitic mass] 24.4 pg Low 27-34 [facility] Comment on above: Performed By: #### C BCA, CMP #### [facility] ([id number]) [address] [place] [address] 98764 MCHC (RBC) [Mass/Vol] 32.1 g/dL Normal 32-36 [facility] Comment on above: Performed By: #### C BCA, CMP #### [facility] ([id number]) [address] [place] [address] 08216 MCV (RBC) [Entitic vol] 76 fL Low 80-100 [facility] Comment on above: Performed By: #### C ROMERO, CMP #### [facility] ([id number]) [address] [place] [address] 46706 Monocytes (Bld) [#/Vol] 1.1 10*3/uL High 0-0.9 [facility] Comment on above: Performed By: #### C ROMERO, CMP #### [facility] ([id number]) [address] [place] [address] 63827 Monocytes/100 WBC (Bld) 10.2 % Normal [facility] Comment on above: Performed By: #### C ROMERO, CMP #### [facility] ([id number]) [address] [place] [address] 62973 Neutrophils/100 WBC (Bld) 78.1 % Normal [facility] Comment on above: Performed By: #### C ROMERO, CMP #### [facility] ([id number]) [address] [place] [address] 81546 Platelet mean volume (Bld) [Entitic vol] 7.7 fL Normal 7-12 [facility] Comment on above: Performed By: #### C ROMERO, CMP #### [facility] ([id number]) [address] [place] [address] 75085 Platelets (Bld) [#/Vol] 300 10*3/uL Normal 150-450 [facility] Comment on above: Performed By: #### C ROMERO, CMP #### [facility] ([id number]) [address] [place] [address] 51575 RBC COUNT 4.62 X10E12/L Normal 3.80-5.20 [facility] Comment on above: Performed By: #### C ROMERO, CMP #### [facility] ([id number]) [address] [place] [address] 55737 WBC (Bld) [#/Vol] 11.0 10*3/uL Normal 4.0-11.0 [facility] Comment on above: Performed By: #### C BCA, CMP #### [facility] ([id number]) [address] [place] [address] 22017 COMPREHENSIVE METABOLIC PANE Hoang 05-31-2024 Albumin [Mass/Vol] 3.9 g/dL Normal 3.2-5.3 [facility] Comment on above: Performed By: #### C BCA, CMP #### [facility] ([id number]) [address] [place] [address] 25525 ALP [Catalytic activity/Vol] 44 U/L Normal 39-130 [facility] Comment on above: Performed By: #### C BCA, CMP #### [facility] ([id number]) [address] [place] [address] 88996 ALT [Catalytic activity/Vol] 13 U/L Normal 0-31 [facility] Comment on above: Performed By: #### C BCA, CMP #### [facility] ([id number]) [address] [place] [address] 37567 Anion gap [Moles/Vol] 7 mmol/L Normal 5-15 [facility] Comment on above: Performed By: #### C BCA, CMP #### [facility] ([id number]) [address] [place] [address] 22522 AST [Catalytic activity/Vol] 15 U/L Normal 0-41 [facility] Comment on above: Performed By: #### C BCA, CMP #### [facility] ([id number]) [address] [place] [address] 88265 Bilirubin [Mass/Vol] 1.1 mg/dL Normal 0.3-1.2 [facility] Comment on above: Performed By: #### C BCA, CMP #### [facility] ([id number]) [address] [place] [address] 17941 Calcium [Mass/Vol] 8.5 mg/dL Normal 8.5-10.5 [facility] Comment on above: Performed By: #### C BCA, CMP #### [facility] ([id number]) [address] [place] [address] 71954 Chloride [Moles/Vol] 93 mmol/L Low 98-109 [facility] Comment on above: Performed By: #### C BCA, CMP #### [facility] ([id number]) [address] [place] [address] 47382 CO2 [Moles/Vol] 28 mmol/L Normal 22-32 [facility] Comment on above: Performed By: #### C BCA, CMP #### [facility] ([id number]) [address] [place] [address] 17414 Creatinine [Mass/Vol] 0.84 mg/dL Normal 0.40-1.00 [facility] Comment on above: Result Comment: METH OD TRACEABLE TO IDMS STANDARD Performed By: #### C BCA, CMP #### [facility] ([id number]) [address] [place] [address] 28788 GFR/1.73 sq M.predicted among non-blacks MDRD (S/P/Bld) [Vol rate/Area] 86 mL/min/{1.73_m2} Normal >59 [facility] Comment on above: Result Comment: Reported eGFR is based on the CKD-EPI 2021 equation that does not use a race coefficient. Performed By: #### C BCA, CMP #### [facility] ([id number]) [address] [place] [address] 51105 Glucose [Mass/Vol] 110 mg/dL High 65-99 [facility] Comment on above: Performed By: #### C BCA, CMP #### [facility] ([id number]) [address] [place] [address], [place] [address] Potassium [Moles/Vol] 3.1 mmol/L Low 3.5-5.0 [facility] Comment on above: Performed By: #### C BCA, CMP #### [facility] ([id number]) [address] [place] [address] 61526 Protein [Mass/Vol] 7.2 g/dL Normal 6.0-8.0 [facility] Comment on above: Performed By: #### C BCA, CMP #### [facility] ([id number]) [address] [place] [address] 24877 Sodium [Moles/Vol] 128 mmol/L Low 134-146 [facility] Comment on above: Performed By: #### C BCA, CMP #### [facility] ([id number]) [address] [place] [address] 84358 Urea nitrogen [Mass/Vol] 19 mg/dL Normal 5-23 [facility] Comment on above: Performed By: #### C BCA, CMP #### [facility] ([id number]) [address] [place] [address] ABDOMEN AND PELVIS WO CON Ton 05-31-2024 CT ABDOMEN AND PELVIS WO CONT CT ABDOMEN AND PELVIS WO CONT CLINICAL INFORMATION: Abdominal pain, acute, nonlocalized; History of ulcerative colitis. TECHNIQUE: CT Abdomen and Pelvis without intravenous contrast. All CT scans at this facility use dose modulation, iterative reconstruction, and/or weight based dosing when appropriate to reduce radiation dose to as low as reasonably achievable. COMPARISON: No relevant prior studies available. FINDINGS: Lack of intravenous contrast limits evaluation of the viscera and vessels. LOWER THORAX: Trace pericardial fluid. Otherwise Unremarkable. HEPATOBILIARY: No focal aggressive appearing hepatic lesions. No biliary ductal dilatation. Gallbladder is unremarkable. SPLEEN: Unremarkable. PANCREAS: Grossly normal for technique. ADRENALS: No exophytic adrenal nodules. KIDNEYS/URETERS: No aggressive appearing exophytic mass lesion. No obstructive renal calculus. No collecting system dilatation. Bladder: Underdistended, limiting evaluation. PELVIC ORGANS: Within normal limits. GI TRACT: No acute bowel obstruction. LYMPH NODES: No enlarged lymph nodes within limitations of noncontrast technique. VESSELS: No abdominal aortic aneurysm. BONES AND SOFT TISSUES: No suspicious osseous lesion. Severe scoliosis with partially imaged spinal elbert. PERITONEUM/RETROPERITONE UM: No free air or significant free fluid. IMPRESSION: * Limited evaluation in the absence of intravenous contrast. * Within this limitation, no acute findings in the abdomen or pelvis. Finalized by Juan Carlos Escobedo on 05/31/2024 10:00 AM Normal [facility] Surgical Pathologyon 024 Surgical Pathology Normal [facility] Comment on above: Result Comment: [facility] [address] [place] [address] Surgical Pathology Consultation Patient Name:KELLI ALKE:1975 (Age: 48)Gender:FTaken:4Reported:4Physician(s):Geovanni Rivers MD ([phone])Copy To: Rec. #:[id number]: #[id number] Final Pathologic Diagnosis 1. Transverse colon biopsy: [...] endoscopic correlation recommended. Report Electronically Signed Out ao/4Alian Camara MD Interpretation performed at [facility] [address] [place] [address], License number: [id number]. Clinical History Colitis. Gross Description 1. Received in formalin labeled ALEKSANDRA, #1: Transverse BX are 3 edmondson bits/strips of soft tissue, ranging from 0.5-0.9 cm in greatest dimension. Filtered and submitted in a single cassette. (1, ns, [id number], m7) MG 2. Received in formalin labeled ALEKSANDRA, #2: Sigmoid are 5 edmondson bits of soft tissue, ranging from 0.2-0.3 cm in greatest dimension. Filtered and submitted in a single cassette. (1, ns, [id number], m7) MG mjg/03/08/2024O Specimen(s) Received 1: Transverse colon biopsies 2: Sigmoid colon biopsy Fee Codes(s): 1; 96465 2; 32436 CBC AND AUTO DIFFon 02-10-20 24 ABSOLUTE BASOPHIL 0.0 X10E9/L Normal 0.0-0.2 [facility] Comment on above: Performed By: #### Marguerite JASSO, 81815-9, CMP, 3040-3 #### [facility] ([id number]) [address] [place] [address] 31248 ABSOLUTE NEUTROPHIL 11.5 X10E9/L High 1.5-6.6 [facility] Comment on above: Performed By: #### Marguerite JASSO, 79340-0, CMP, 3040-3 #### [facility] ([id number]) [address] [place] [address] 09488 Basophils/100 WBC (Bld) 0.2 % Normal [facility] Comment on above: Performed By: #### Marguerite JASSO, 12386-7, CMP, 3040-3 #### [facility] ([id number]) [address] [place] [address] 46721 Eosinophils (Bld) [#/Vol] 0.0 10*3/uL Normal 0.0-0.4 [facility] Comment on above: Performed By: #### Marguerite JASSO, 67636-2, CMP, 3040-3 #### [facility] ([id number]) [address] [place] [address] 81666 Eosinophils/100 WBC (Bld) 0.1 % Normal [facility] Comment on above: Performed By: #### Marguerite JASSO, 85669-9, CMP, 3040-3 #### [facility] ([id number]) [address] [place] [address] 39907 Erythrocyte distribution width (RBC) [Ratio] 19.1 % High 11.5-15.0 [facility] Comment on above: Performed By: #### Marguerite JASSO, 01466-3, CMP, 0-3 #### [facility] ([id number]) [address] [place] [address] 89721 Hematocrit (Bld) [Volume fraction] 36.4 % Normal 35-47 [facility] Comment on above: Performed By: #### Marguerite JASSO, 88803-7, CMP, 0-3 #### [facility] ([id number]) [address] [place] [address] 18346 Hemoglobin (Bld) [Mass/Vol] 12.2 g/dL Normal 11.7-15.5 [facility] Comment on above: Performed By: #### Marguerite JASSO, 92800-2, CMP, 0-3 #### [facility] ([id number]) [address] [place] [address] 34781 Lymphocytes (Bld) [#/Vol] 0.7 10*3/uL Low 1.0-3.5 [facility] Comment on above: Performed By: #### Marguerite JASSO, 49580-0, CMP, 0-3 #### [facility] [facility] ([id number]) [address] [place] [address] 55534 Lymphocytes/100 WBC (Bld) 5.7 % Normal [facility] Comment on above: Performed By: #### Marguerite JASSO, 58994-5, CMP, 0-3 #### [facility] ([id number]) [address] [place] [address] MCH (RBC) [Entitic mass] 24.9 pg Low 27-34 [facility] Comment on above: Performed By: #### Marguerite JASSO, 40157-7, CMP, 3040-3 #### [facility] ([id number]) [address] [place] [address] 49628 MCHC (RBC) [Mass/Vol] 33.5 g/dL Normal 32-36 [facility] Comment on above: Performed By: #### Marguerite JASSO, 34806-0, CMP, 3040-3 #### [facility] ([id number]) [address] [place] [address] 79905 MCV (RBC) [Entitic vol] 74 fL Low 80-100 [facility] Comment on above: Performed By: #### Marguerite JASSO, 40215-9, CMP, 0-3 #### [facility] ([id number]) [address] [place] [address] 45796 Monocytes (Bld) [#/Vol] 0.4 10*3/uL Normal 0-0.9 [facility] Comment on above: Performed By: #### Marguerite JASSO, 45853-0, CMP, 3040-3 #### [facility] ([id number]) [address] [place] [address] 38223 Monocytes/100 WBC (Bld) 3.2 % Normal [facility] Comment on above: Performed By: #### Marguerite JASSO, 89221-1, CMP, 0-3 #### [facility] ([id number]) [address] [place] [address] 81433 Neutrophils/100 WBC (Bld) 90.8 % Normal [facility] Comment on above: Performed By: #### Marguerite JASSO, 27591-5, CMP, 3040-3 #### [facility] ([id number]) [address] [place] [address] 10211 Platelet mean volume (Bld) [Entitic vol] 8.1 fL Normal 7-12 [facility] Comment on above: Performed By: #### C BCA, 17149-7, CMP, 3040-3 #### [facility] ([id number]) [address] [place] [address] 09080 Platelets (Bld) [#/Vol] 435 10*3/uL Normal 150-450 [facility] Comment on above: Performed By: #### C BCA, 28986-4, CMP, 3040-3 #### [facility] ([id number]) [address] [place] [address] 95066 RBC COUNT 4.90 X10E12/L Normal 3.80-5.20 [facility] Comment on above: Performed By: #### Marguerite BCA, 73920-2, CMP, 3040-3 #### [facility] ([id number]) [address] [place] [address] 11773 WBC (Bld) [#/Vol] 12.6 10*3/uL High 4.0-11.0 [facility] Comment on above: Performed By: #### Marguerite BCA, 56927-9, CMP, 3040-3 #### [facility] ([id number]) [address] [place] [address]7621 COMPREHENSIVE METABOLIC PANE Hoang 02-10-2024 Albumin [Mass/Vol] 4.1 g/dL Normal 3.2-5.3 [facility] Comment on above: Performed By: #### C BCA, 88195-8, CMP, 3040-3 #### [facility] ([id number]) [address] [place] [address] 94396 ALP [Catalytic activity/Vol] 53 U/L Normal 39-130 [facility] Comment on above: Performed By: #### Marguerite BCA, 88716-9, CMP, 3040-3 #### [facility] ([id number]) [address] [place] [address] 74154 ALT [Catalytic activity/Vol] 10 U/L Normal 0-31 [facility] Comment on above: Performed By: #### C BCA, 94742-8, CMP, 3040-3 #### [facility] ([id number]) [address] [place] [address] 60049 Anion gap [Moles/Vol] 8 mmol/L Normal 5-15 [facility] Comment on above: Performed By: #### C BCA, 79561-7, CMP, 3040-3 #### [facility] ([id number]) [address] [place] [address] 92311 AST [Catalytic activity/Vol] 17 U/L Normal 0-41 [facility] Comment on above: Performed By: #### C BCA, 73329-0, CMP, 3040-3 #### [facility] ([id number]) [address] [place] [address] [place] [address] Bilirubin [Mass/Vol] 1.0 mg/dL Normal 0.3-1.2 [facility] Comment on above: Performed By: #### C BCA, 02876-2, CMP, 3040-3 #### [facility] ([id number]) [address] [place] [address] 78790 Calcium [Mass/Vol] 8.5 mg/dL Normal 8.5-10.5 [facility] Comment on above: Performed By: #### C BCA, 57702-6, CMP, 3040-3 #### [facility] ([id number]) [address] [place] [address] 25446 Chloride [Moles/Vol] 99 mmol/L Normal 98-109 [facility] Comment on above: Performed By: #### C BCA, 09904-7, CMP, 3040-3 #### [facility] ([id number]) [address] [place] [address] 12604 CO2 [Moles/Vol] 24 mmol/L Normal 22-32 [facility] Comment on above: Performed By: #### C BCA, 87108-1, CMP, 3040-3 #### [facility] ([id number]) [address] [place] [address] 48269 Creatinine [Mass/Vol] 0.71 mg/dL Normal 0.40-1.00 [facility] Comment on above: Result Comment: METH OD TRACEABLE TO IDMS STANDARD Performed By: #### C BCA, 46266-2, CMP, 3040-3 #### [facility] ([id number]) [address] [place] [address] 67689 eGFR (CKD-EPI) NON-RACE DEPENDENT >90 Normal >59 [facility] Comment on above: Result Comment: Reported eGFR is based on the CKD-EPI 2020 equation that does not use a race coefficient. Performed By: #### C BCA, 07343-5, CMP, 3040-3 #### [facility] ([id number]) [address] [place] [address] 18867 Glucose [Mass/Vol] 114 mg/dL High 65-99 [facility] Comment on above: Performed By: #### C BCA, 70594-3, CMP, 3040-3 #### [facility] ([id number]) [address] [place] [address] 23148 Potassium [Moles/Vol] 3.7 mmol/L Normal 3.5-5.0 [facility] Comment on above: Performed By: #### C BCA, 10156-2, CMP, 3040-3 #### [facility] ([id number]) [address] [place] [address] 95928 Protein [Mass/Vol] 7.6 g/dL Normal 6.0-8.0 [facility] Comment on above: Performed By: #### C BCA, 15589-5, CMP, 3040-3 #### [facility] ([id number]) [address] [place] [address] 51522 Sodium [Moles/Vol] 131 mmol/L Low 134-146 [facility] Comment on above: Performed By: #### C ROMERO, 42228-3, CMP, 3040-3 #### [facility] ([id number]) [address] [place] [address] 03087 Urea nitrogen [Mass/Vol] 11 mg/dL Normal 5-23 [facility] Comment on above: Performed By: #### C ROMERO, 18033-3, CMP, 3040-3 #### [facility] ([id number]) [address] [place] [address] 70942 HCG ( test) Ql (U)o n 02-10-2024 Beta HCG ( test) Ql (U) Negative Normal NEG [facility] Comment on above: Performed By: #### 2 106-3 #### [facility] ([id number]) [address] [place] [address] 92499 LIPASEon 02-10-2024 Lipase [Catalytic activity/Vol] 42 U/L High 17-40 [facility] Comment on above: Performed By: #### C ROMERO, 50213-4, CMP, 3040-3 #### [facility] ([id number]) [address] [place] [address] 71116 Lactate (P caroline) [Moles/Vol]o n 02-10-2024 LACTATE W/REFLEX 1.1 mmol/L Normal 0.4-2.0 [facility] Comment on above: Result Comment: Result did not trigger repeat Lactate, re-order if needed. Performed By: #### C BCA, 97593-1, CMP, 3040-3 #### [facility] ([id number]) [address] [place] [address] 01334 URN MACROSCOPIC NURon 2023 BILIRUBIN MEÑO Small Abnormal NEG [facility] Comment on above: Performed By: #### N UM #### [facility] ([id number]) [address] [place] [address] [place] [address] BLOOD/HGB MEÑO Negative Normal NEG [facility] Comment on above: Performed By: #### N UM #### [facility] ([id number]) [address] [place] [address] [place] [address] GLUCOSE MEÑO Negative Normal NEG [facility] Comment on above: Performed By: #### N UM #### [facility] ([id number]) [address] [place] [address] [place] [address] KETONES MEÑO 80 mg/dL Abnormal NEG [facility] Comment on above: Performed By: #### N UM #### [facility] ([id number]) [address] [place] [address] [place] [address] LEUKOCYTE ESTERASE MEÑO Negative Normal NEG [facility] Comment on above: Performed By: #### N UM #### [facility] ([id number]) [address] [place] [address] [place] [address] NITRITE MEÑO Negative Normal NEG [facility] Comment on above: Performed By: #### N UM #### [facility] ([id number]) [address] [place] [address] [place] [address] PH MEÑO 6.0 Normal 5.0-8.5 [facility] Comment on above: Performed By: #### N UM #### [facility] ([id number]) [address] [place] [address] 29287 PROTEIN MEÑO 30 mg/dL Abnormal NEG [facility] Comment on above: Performed By: #### N UM #### [facility] ([id number]) [address] [place] [address] [place] [address] SPECIFIC GRAVITY MEÑO 1.025 Normal 1.003-1.035 [facility] Comment on above: Performed By: #### N UM #### [facility] ([id number]) [address] [place] [address] 87832 UROBILINOGEN MEÑO 0.2 eu/dL Normal <1.1 [facility] Comment on above: Performed By: #### N UM #### [facility] ([id number]) [address] [place] [address]19 Multiple labsOrdered By: Stacia Villa on 01-16-2024 [facility] BASIC METABOLIC PANLon 01-06 Anion gap [Moles/Vol] 8 mmol/L Normal 5-15 [facility] Comment on above: Performed By: #### B MP #### [facility] ([id number]) [address], [address] [place] [address] Calcium [Mass/Vol] 8.6 mg/dL Normal 8.5-10.5 [facility] Comment on above: Performed By: #### B MP #### [facility] ([id number]) [address], [address] [place] [address] Chloride [Moles/Vol] 105 mmol/L Normal 98-109 [facility] Comment on above: Performed By: #### B MP #### [facility] ([id number]) [address], [address] [place] [address] CO2 [Moles/Vol] 25 mmol/L Normal 22-32 [facility] Comment on above: Performed By: #### B MP #### [facility] ([id number]) [address], [address] [place] [address] Creatinine [Mass/Vol] 0.74 mg/dL Normal 0.40-1.00 [facility] Comment on above: Result Comment: METH OD TRACEABLE TO IDMS STANDARD Performed By: #### B MP #### [facility] ([id number]) [address], [address] [place] [address] eGFR (CKD-EPI) NON-RACE DEPENDENT >90 Normal >59 [facility] Comment on above: Result Comment: Reported eGFR is based on the CKD-EPI 2020 equation that does not use a race coefficient. Performed By: #### B MP #### [facility] ([id number]) [address], [address] [place] [address] Glucose [Mass/Vol] 87 mg/dL Normal 65-99 [facility] Comment on above: Performed By: #### B MP #### [facility] ([id number]) [address] [place] [address] Potassium [Moles/Vol] 3.9 mmol/L Normal 3.5-5.0 [facility] Comment on above: Performed By: #### B MP #### [facility] ([id number]) [address], [address] [place] [address] Sodium [Moles/Vol] 138 mmol/L Normal 134-146 [facility] Comment on above: Performed By: #### B MP #### [facility] ([id number]) [address], [address] [place] [address] Urea nitrogen [Mass/Vol] 5 mg/dL Normal 5-23 [facility] Comment on above: Performed By: #### B MP #### [facility] ([id number]) [address] [place] [address] Basic Metabolic Panelon 05-1 Anion gap [Moles/Vol] 8 mmol/L 5 - 15 mmol/L [facility] Calcium [Mass/Vol] 8.6 mg/dL 8.5 - 10. 5 mg/dL [facility] Chloride [Moles/Vol] 105 mmol/L 98 - 109 mmol/L [facility] CO2 [Moles/Vol] 25 mmol/L 22 - 32 mmol/L [facility] Creatinine [Mass/Vol] 0.74 mg/dL 0.40 - 1.00 mg/dL [facility] Comment on above: METHOD TRACEABLE TO IDCT STANDARD eGFR (CKD-EPI)non-race dependent - PINF [facility] Comment on above: Reported eGFR is based on the CKD-EPI 2020 equation that does not use a race coefficient. Glucose [Mass/Vol] 87 mg/dL 65 - 99 mg/dL [facility] Potassium [Moles/Vol] 3.9 mmol/L 3.5 - 5.0 mmol/L [facility] Sodium [Moles/Vol] 138 mmol/L 134 - 146 mmol/L [facility] Urea nitrogen [Mass/Vol] 5 mg/dL 5 - 23 mg/dL [facility] INFLUENZA A AND B AGon 08-27 INFLUANEGH SEE BELOW Normal [facility] Comment on above: Result Comment: Nega tive for Flu A protein angiten. Infection due to Flu A cannot be ruled out. Flu A angiten in the sample may be below the detection limit of the test. Performed By: #### I NFLUAB #### [facility] [address] [place] [address] Jessieyamile Gandhi INFLUBNEGH SEE BELOW Normal [facility] Comment on above: Result Comment: Nega tive for Flu B protein antigen. Infection due to Flu B cannot be ruled out. Flu B antigen in the sample may be below the detection limit of the test. Performed By: #### I NFLUAB #### [facility] [address] [place] [address] Jessieyamile Gandhi INFLUENZA A AG Negative Normal NEGATIVE SEE COMMENT [facility] Comment on above: Performed By: #### I NFLUAB #### [facility] [address] [place] [address] Jessieyamile Gandhi INFLUENZA B AG Negative Normal NEGATIVE SEE COMMENT [facility] Comment on above: Performed By: #### I NFLUAB #### [facility] [address] [place] [address] Jessie Oksana INTERNAL CONTROLS Within Normal Limits Normal Wi thin Normal Limits [facility] Comment on above: Performed By: #### I NFLUAB #### [facility] [address] [place] [address] Jessie Gandhi Vital Signs Date Time Vital Sign Value Performing Clinician Facility 06-27-2024 16:39-0500 Diastolic blood pressure 70 mm[Hg] Geovanni Gavirias DO Work Phone: [facility] 06-27-2024 16:39-0500 Systolic blood pressure 96 mm[Hg] Geovanni Gibbshas DO Work Phone: [facility] 06-27-2024 15:58-0500 Body height 154.9 cm Geovanni Gibbshas DO Work Phone: [facility] [employer] 06-27-2024 15:58-0500 Body mass index (BMI) [Ratio] 24.75 kg/m2 Geovanni Gibbshas DO Work Phone: [facility] 06-27-2024 15:58-0500 Body temperature 98.1 [degF] Geovanni Gibbshas DO Work Phone: [facility] 06-27-2024 15:58-0500 Body weight 59.42 kg Geovanni Gibbshas DO Work Phone: [facility] 06-27-2024 15:58-0500 Heart rate 72 /min Geovanni Gibbshas DO Work Phone: [facility] 06-27-2024 15:58-0500 Respiratory rate 18 /min Geovanni Gibbshas DO Work Phone: [facility] 06-27-2024 15:58-0500 SaO2% (BldA) [Mass fraction] 98 % Geovanni Gibbshas DO Work Phone[facility] 05-31-2024 16:37-0400 Body height 154.9 cm Geovanni Gibbshas DO Work Phone: [facility] 05-31-2024 16:37-0400 Body mass index (BMI) [Ratio] 23.83 kg/m2 Geovanni Gibbshas DO Work Phone: [facility] 05-31-2024 16:37-0400 Body temperature 98.1 [degF] Geovanni Gavirias DO Work Phone: [facility] 05-31-2024 16:37-0400 Body weight 57.2 kg Geovanni Gavirias DO Work Phone: [facility] 05-31-2024 16:37-0400 Diastolic blood pressure 60 mm[Hg] Geovanni Gavirias DO Work Phone: [facility] 05-31-2024 16:37-0400 Heart rate 79 /min Geovanni Gavirias DO Work Phone: [facility] 05-31-2024 16:37-0400 SaO2% (BldA) [Mass fraction] 97 % Geovanni Gavirias DO Work Phone: [facility] 05-31-2024 16:37-0400 Systolic blood pressure 120 mm[Hg] Geovanni Gavirias DO Work Phone: [facility] 04-19-2024 14:37-0400 Diastolic blood pressure 48 mm[Hg] Geovanni Gavirias DO Work Phone: [facility] 04-19-2024 14:37-0400 Systolic blood pressure 100 mm[Hg] Geovanni Gavirias DO Work Phone: [facility] 04-19-2024 14:34-0400 Body height 154.9 cm Geovanni Gavirias DO Work Phone: [facility] 04-19-2024 14:34-0400 Body mass index (BMI) [Ratio] 25.47 kg/m2 Geovanni Gavirias DO Work Phone: [facility] 04-19-2024 14:34-0400 Body temperature 97.81 [degF] Geovanni Gavirias DO Work Phone: [facility] 04-19-2024 14:34-0400 Body weight 61.15 kg Geovanni Yuhas DO Work Phone: [facility] 04-19-2024 14:34-0400 Heart rate 82 /min Geovanni Gibbshas DO Work Phone: [facility] 04-19-2024 14:34-0400 Respiratory rate 18 /min Geovanni Gavirias DO Work Phone: [facility] 04-19-2024 14:34-0400 SaO2% (BldA) [Mass fraction] 99 % Geovanni Gavirias DO Work Phone: [facility] 03-16-2024 11:17-0400 Body height 154.9 cm Geovanni Gavirias DO Work Phone: [facility] 03-16-2024 11:17-0400 Body mass index (BMI) [Ratio] 24.96 kg/m2 Geovanni Gavirias DO Work Phone: [facility] 03-16-2024 11:17-0400 Body temperature 98.2 [degF] Gevoanni Gavirias DO Work Phone: [facility] 03-16-2024 11:17-0400 Body weight 59.92 kg Geovanni Gavirias DO Work Phone: [facility] 03-16-2024 11:17-0400 Diastolic blood pressure 80 mm[Hg] Geovanni Gavirias DO Work Phone: [facility] 03-16-2024 11:17-0400 Heart rate 71 /min Geovanni Gavirias DO Work Phone: [facility] 03-16-2024 11:17-0400 SaO2% (BldA) [Mass fraction] 98 % Geovanni Gavirias DO Work Phone: [facility] 03-16-2024 11:17-0400 Systolic blood pressure 100 mm[Hg] Geovanni Gibbshas DO Work Phone: [facility] 03-07-2024 12:07-0400 Body height 156.8 cm Pmh 1 [facility] 03-07-2024 12:07-0400 Body mass index (BMI) [Ratio] 24.34 kg/m2 Pmh 1 [facility] 03-07-2024 12:07-0400 Body weight 59.88 kg Pmh 1 [facility] 02-08-2024 10:25-0400 Diastolic blood pressure 68 mm[Hg] Geovanni Rivers DO Work Phone: [facility] 02-08-2024 10:25-0400 Systolic blood pressure 94 mm[Hg] Geovanni Gavirias DO Work Phone: [facility] 02-08-2024 09:35-0400 Body height 154.9 cm Geovanni Rivers DO Work Phone: [facility] 02-08-2024 09:35-0400 Body mass index (BMI) [Ratio] 25.07 kg/m2 Geovanni Gavirias DO Work Phone: [facility] 02-08-2024 09:35-0400 Body temperature 98.1 [degF] Geovanni Gavirias DO Work Phone: [facility] 02-08-2024 09:35-0400 Body weight 60.19 kg Geovanni Gavirias DO Work Phone: [facility] 02-08-2024 09:35-0400 Heart rate 78 /min Geovanni Gavirias DO Work Phone: [facility] 02-08-2024 09:35-0400 Respiratory rate 18 /min Geovanni Gavirias DO Work Phone: [facility] 02-08-2024 09:35-0400 SaO2% (BldA) [Mass fraction] 96 % Geovanni Gavirias DO Work Phone: [facility] 01-27-2024 14:41-0400 Body height 154.9 cm Cande Saeidpatric GAMAN-DRESSING MACHINE OPERATOR Work Phone: [facility] 01-27-2024 14:41-0400 Body mass index (BMI) [Ratio] 26.07 kg/m2 Cande Rand APRN-DRESSING MACHINE OPERATOR Work Phone: [facility] 01-27-2024 14:41-0400 Body temperature 97.3 [degF] Cande Rand APRN-DRESSING MACHINE OPERATOR Work Phone: [facility] 01-27-2024 14:41-0400 Body weight 62.6 kg Cande BACKDRESSING MACHINE OPERATOR Work Phone: [facility] 01-27-2024 14:41-0400 Diastolic blood pressure 60 mm[Hg] Cande BACKDRESSING MACHINE OPERATOR Work Phone: [facility] 01-27-2024 14:41-0400 Heart rate 70 /min Cande BACKDRESSING MACHINE OPERATOR Work Phone: [facility] 01-27-2024 14:41-0400 Respiratory rate 12 /min Cande Rand APRN-DRESSING MACHINE OPERATOR Work Phone: [facility] 01-27-2024 14:41-0400 SaO2% (BldA) [Mass fraction] 99 % Cande Rand APRN-DRESSING MACHINE OPERATOR Work Phone: [facility] 01-27-2024 14:41-0400 Systolic blood pressure 112 mm[Hg] Cande BACKDRESSING MACHINE OPERATOR Work Phone: [facility] 01-07-2024 09:36-0400 Body height 154.9 cm Cande BACKDRESSING MACHINE OPERATOR Work Phone: [facility] 01-07-2024 09:36-0400 Body mass index (BMI) [Ratio] 27.21 kg/m2 Cande Rand APRN-DRESSING MACHINE OPERATOR Work Phone: [facility] 01-07-2024 09:36-0400 Body temperature 98.29 [degF] Cande Rand APRN-DRESSING MACHINE OPERATOR Work Phone: [facility] 01-07-2024 09:36-0400 Body weight 65.32 kg Cande Rand APRN-DRESSING MACHINE OPERATOR Work Phone: [facility] 01-07-2024 09:36-0400 Diastolic blood pressure 62 mm[Hg] Cande Rand APRN-DRESSING MACHINE OPERATOR Work Phone: [facility] 01-07-2024 09:36-0400 Heart rate 69 /min Cande Rand APRN-DRESSING MACHINE OPERATOR Work Phone: [facility] 01-07-2024 09:36-0400 SaO2% (BldA) [Mass fraction] 96 % Cande Rand APRN-DRESSING MACHINE OPERATOR Work Phone: [facility] 01-07-2024 09:36-0400 Systolic blood pressure 102 mm[Hg] Cande Keyona ISSAKyma TechnologiesDRESSING MACHINE OPERATOR Work Phone: [facility] Encounters Encounter Date Encounter Type Care Provider Facility Start: 08-08-2024 End: 08-08-2024 ambulatory [facility] Start: 06-27-2024 End: 06-27-2024 Office outpatient visit 25 minutes Geovanni Rivers DO Work Phone: [facility] Comment on above: IBD (inflammatory mira wel disease); Heartburn Start: 06-27-2024 End: 06-27-2024 ambulatory 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 Start: 05-31-2024 End: 05-31-2024 Emergency department patient visit [facility] Start: 05-27-2024 End: 05-27-2024 ambulatory Mandy Polo RN [facility] Start: 05-02-2024 End: 05-02-2024 Telephone encounter Herminio Leos [facility] Start: 05-01-2024 End: 05-03-2024 Telephone encounter Herminio Leos [facility] Start: 04-19-2024 End: 04-19-2024 Office outpatient visit 25 minutes Geovanni Rivers DO Work Phone: [facility] Comment on above: IBD (inflammatory mira wel disease) (Primary Dx) Start: 04-19-2024 End: 04-19-2024 ambulatory [facility] Start: 03-16-2024 End: 03-16-2024 Office outpatient visit 25 minutes Geovanni Gibbsurvashi DO Work Phone: [facility] Internal Medicine - Family Medicine Comment on above: IBD (inflammatory mira wel disease) (Primary Dx); Colitis due to Clostridioides difficile Start: 03-16-2024 End: 03-16-2024 ambulatory [facility] Start: 03-08-2024 End: 03-08-2024 Evaluation and management of inpatient [facility] Start: 03-07-2024 End: 03-07-2024 ambulatory [facility] Pat Phone Call Provider 1 [facility] Start: 03-07-2024 End: 03-07-2024 ambulatory [facility] Start: 02-10-2024 End: 02-10-2024 Emergency department patient visit [facility] Start: 02-08-2024 End: 02-08-2024 ambulatory [facility] Start: 02-08-2024 End: 02-08-2024 Office outpatient visit 25 minutes Geovanni Rivers DO Work Phone: [facility] Internal Medicine - Family Medicine Comment on above: Colitis (Primary Dx) ; Hypotension, unspecified hypotension type Start: 01-27-2024 End: 01-27-2024 Office outpatient visit 15 minutes Cande Rand SALES RELATIONSHIP MANAGER-DRESSING MACHINE OPERATOR Work Phone: [facility] Internal Medicine - Family Medicine Comment on above: Colitis due to Clost ridioides difficile (Primary Dx) Start: 01-27-2024 End: 01-27-2024 ambulatory [facility] Start: 01-25-2024 End: 01-25-2024 Orders Only Not In System Ref Prov [facility] General Surgery Start: 01-24-2024 End: 01-24-2024 Refill Felisha Camille [facility] Internal Medicine - Family Medicine Start: 01-07-2024 End: 01-08-2024 ambulatory [facility] Start: 01-07-2024 End: 01-07-2024 Office outpatient visit 15 minutes Cande Rand SALES RELATIONSHIP MANAGER-DRESSING MACHINE OPERATOR Work Phone: [facility] Medicine - Family Medicine Comment on above: Colitis (Primary Dx) ; Hypokalemia; Reactive depression; Screen for colon cancer Start: 01-07-2024 End: 01-07-2024 ambulatory [facility] Start: 08-27-2019 End: 08-27-2019 Patient encounter procedure PANCHITO JUAREZ Facility: Procedures Date Procedure Procedure Detail Performing Clinician Start: 06-27-2024 Adult depression screening assessment Geovanni Silvestre DO Work Phone: Start: 05-31-2024 Adult depression screening assessment Geovanni Silvestre DO Work Phone: Start: 04-19-2024 Adult depression screening assessment Geovanni Everettes DO Work Phone: Start: 03-16-2024 Adult depression screening assessment Geovanni Silvestre DO Work Phone: Start: 02-08-2024 Adult depression screening assessment Geovanni Rivers DO Work Phone: Start: 01-27-2024 Adult depression screening assessment Cande Rand SALES RELATIONSHIP MANAGER-DRESSING MACHINE OPERATOR Work Phone: Start: 01-16-2024 MULTIPLE LABS Not In Sy stem Ref Prov Start: 01-07-2024 Follow-up visit Follow-up CANDE RAND Start: 01-07-2024 Adult depression screening assessment Cande Rand SALES RELATIONSHIP MANAGER-DRESSING MACHINE OPERATOR Work Phone: Plan of Treatment Date Care Activity Detail Author Start: 06-27-2025 Adult BMI Screening Adult BMI Screen ing [facility] Start: 06-27-2025 Depression Screening Depression Scre ening [facility] Start: 05-31-2025 Adult BMI Screening Adult BMI Screen ing [facility] Start: 05-31-2025 Depression Screening Depression Scre ening [facility] Start: 05-31-2025 Tobacco Screening Tobacco Screening [facility] Start: 04-19-2025 Adult BMI Screening Adult BMI Screen ing [facility] Start: 04-19-2025 Depression Screening Depression Scre ening [facility] Start: 04-19-2025 Tobacco Screening Tobacco Screening [facility] Start: 03-16-2025 Adult BMI Screening Adult BMI Screen ing [facility] Start: 03-16-2025 Depression Screening Depression Scre ening [facility] Start: 03-16-2025 Tobacco Screening Tobacco Screening [facility] Start: 03-08-2025 Adult BMI Screening Adult BMI Screen ing [facility] Start: 03-08-2025 Tobacco Screening Tobacco Screening [facility] Start: 02-07-2025 Adult BMI Screening Adult BMI Screen ing [facility] Start: 02-07-2025 Depression Screening Depression Scre ening [facility] Start: 02-07-2025 Tobacco Screening Tobacco Screening [facility] Start: 01-26-2025 Adult BMI Screening Adult BMI Screen ing [facility] Start: 01-26-2025 Depression Screening Depression Scre ening [facility] Start: 01-26-2025 Tobacco Screening Tobacco Screening [facility] Start: 01-06-2025 Adult BMI Screening Adult BMI Screen ing [facility] Start: 01-06-2025 Depression Screening Depression Scre ening [facility] Start: 01-06-2025 Tobacco Screening Tobacco Screening [facility] Start: 08-08-2024 End: 08-08-2024 Patient encounter procedure 08/08/2024 2:30 PM EST [facility] [address] [place] [address] Geovanni Rivers, DO [address] [place] [address] [facility] Internal Medicine - Family Medicine Start: 06-27-2024 End: 06-27-2024 Patient encounter procedure 06/27/2024 4:00 PM EST [facility] [address] [place] [address] Geovanni Rivers, DO [address] [place] [address] [facility] Internal Medicine - Family Medicine Start: 05-31-2024 End: 05-31-2024 Patient encounter procedure 05/31/2024 1:40 PM EDT Office Visit [facility] Internal Medicine - Family Medicine [address] [place] [address] Leonel Avalos, SALES RELATIONSHIP MANAGER-CIVIL PREPAREDNESS COORDINATOR [address] [place] [address] [facility] Internal Medicine - Family Medicine Start: 04-19-2024 End: 04-19-2024 Patient encounter procedure 04/19/2024 2:45 PM EDT Office [facility] [address] [place] [address] Geovanni Rivers, DO [address] [place] [address] [facility] Internal Medicine - Family Medicine Start: 03-16-2024 End: 03-16-2024 Patient encounter procedure 03/16/2024 11:15 AM EDT Office Visit [facility] Internal Medicine - Family Medicine [address] [place] [address] Geovanni Rivers, DO [address] [place] [address] [facility] Internal Medicine - Family Medicine Start: 03-08-2024 End: 03-08-2024 Admission to same day surgery center 03/08/2024 10:00 AM EDT - 03/08/2024 11:00 AM EDT Surgery [facility] [address] [place] [phone] Geovanni Rivers, DO [address] [place] [address] COLONOSCOPY DIAGNOSTIC / SCREENING [39418 (CPT )] [facility] Comment on above: COLONOSCOPY DIAGNOST IC / SCREENING [71444 (CPT )] Start: 03-08-2024 Subsequent hospital visit by physician 03/08/2024 10:00 AM EDT Hospital Encounter [facility] [address] [facility] [phone] Geovanni Rivers, DO [address] [place] [address] [facility] Start: 03-08-2024 End: 03-08-2024 [facility] Start: 03-07-2024 End: 03-07-2024 ambulatory 03/07/2024 3:40 PM EDT Support Visit [facility] [address] [place] [address] [facility] Start: 01-27-2024 End: 01-27-2024 Patient encounter procedure 01/27/2024 2:40 PM EDT Office Visit [facility] Internal Medicine - Family Medicine [address] [place] [address] Keyona Aviva, SALES RELATIONSHIP MANAGER-DRESSING MACHINE OPERATOR [address] [place] [address] [facility] Internal Medicine - Family Medicine Start: 1998 Screening for malign ant neoplasm of cervix Pap Smear [facility] Start: 1996 DTaP,Tdap and Td Vaccines (1 - Tdap) DTaP,Tdap and Td Vaccines (1 - Tdap) [facility] Start: 1995 Adult BMI Follow Up Plan Adult BMI Follow Up Plan [facility] End: 03-16-2025 C-reactive protein C-reactive protein Lab Routine IBD (inflammatory bowel disease) 1 Occurrences starting 03/16/2024 until 03/16/2025 [employer] Work Phone: Comment on above: 1 Occurrences starti ng 03/16/2024 until 03/16/2025 End: 01-06-2025 Colonoscopy Colonoscopy GI Routine Screen for colon cancer 1 Occurrences starting 01/07/2024 until 01/06/2025 [employer] Work Phone: Comment on above: 1 Occurrences starti ng 01/07/2024 until 01/06/2025 End: 02-07-2025 Colonoscopy Colonoscopy GI Routine Colitis 1 Occurrences starting 02/08/2024 until 02/07/2025 [employer] Work Phone: Comment on above: 1 Occurrences starti ng 02/08/2024 until 02/07/2025 Colonoscopy flx dx w/collj spec when [facility] COLONOSCOPY DIAGNOSTIC / SCREENING Colitis [facility] End: 03-16-2025 Cytoplasmic Neutrophilic Ab, S Cytoplasmic Neutrophilic Ab, S Lab Routine IBD (inflammatory bowel disease) 1 Occurrences starting 03/16/2024 until 03/16/2025 [facility] Comment on above: 1 Occurrences starti ng 03/16/2024 until 03/16/2025 Payers Date Payer Category Payer Medicaid [employer] [facility] [facility] O [id number] 2023-Present [phone] [address] [place] [address] [id number] 2023 Medicaid HMO [employer] [id number] 2023 Medicaid [id number] 1977 Unknown [id number] 1977 Unknown [id number] [id number] 1977 Unknown [id number] [id number] 1977 Unknown [id number] [id number] 1977 Unknown [id number] [id number] 1977 Unknown [id number] [id number] 1977 Unknown [id number] 2.840.1.096960.3.579.2.1286 1977 Unknown [id number] [id number] 1977 Unknown [id number] [id number] 1977 Unknown [id number] [id number] 1977 Unknown [id number] [id number] 1977 Unknown [id number] [id number] 1977 Unknown [id number] [id number] 1977 Unknown [id number] 1959 Unknown [id number] Social History Date Type Detail Facility Start: 01-07-2024 [facility] History of tobacco use Current smoker [facility] History of tobacco use Cigarette Smoker [facility] Start: 01-07-2024 End: 06-27-2024 Cigarettes smoked current (pack per day) - Reported 0.5 [facility] Start: 01-07-2024 Tobacco use and exposure Smokeless tobacco non-user [facility] Start: 01-27-2024 End: 06-27-2024 Alcoholic beverage intake Ex-drinker (finding) [facility] Start: 01-27-2024 End: 06-27-2024 Tobacco use panel [facility] Adolescent depressio n screening assessment 0 [facility] Start: 06-28-2023 Alcohol Comment Rarely [facility] Start: 1975 Sex assigned at Not on file [facility] Start: 05-13-2022 Sex Female (finding) [facility] Clinical Notes 01-07-2024 to 06-27-2024 Geovanni Rivers, - 06/27/2024 4:00 PM ESTTelephone Encounter - Julia Boss, BUTT WELDER - 06/08/2024 1:13 PM EDTTelephone Encounter - Geovanni Rivers, DO - 06/08/2024 1:13 PM EDT Note Date & Type Note Facility 06-27-2024 History of Present illness Narrative IM PROGRESS NOTE Patient - Kelli Lake Age - 49 [facility] 1975 [id number] ASSESS[facility] & PLAN 1. IBD (inflammatory bowel disease) -patient is tolerating low-dose of mesalamine, with improvement in her BMs in both consistency and frequency. -will slowly increase mesalamine up to 400 mg b.i.d.. We will continue to tolerate up as needed for tolerance as well as control of her stool symptoms - mesalamine (DELZICOL) 400 mg capsule (with del rel tablets) DR capsule; Take 1 capsule (400 mg total) by mouth in the morning and 1 capsule (400 mg total) in the evening. Take with meals. Dispense: 60 capsule; Refill: 1 2. Heartburn -heartburn and dysphagia are better with the Pepcid -I think control of her reflux symptoms are helping her tolerate the mesalamine better. -continue famotidine 40 mg nightly - famotidine (PEPCID) 40 mg tablet; Take 1 tablet (40 mg total) by mouth nightly. Dispense: 90 tablet; Refill: 1 Subjective 49-year-old female presents for recheck on her bowel symptoms. Has been diagnosed with IBD based on colon biopsies. Has been started on several different iterations of anti-inflammatory medications, which she had difficulty tolerating and swallowing. At last visit, we decided to introduce low dose of mesalamine with a slow upward titration to see if she could tolerate it better, and also monitor her stool symptoms. -she did develop some heartburn after starting mesalamine 400 mg once daily -she was started on some famotidine 40 mg nightly -after the 1st couple days of this dual therapy, she has been able to tolerate the mesalamine 400 mg once daily without problems. No longer having any dysphagia. -she reports her bowels are improved. Generally a BSS 5-6, and usually no more than 2-3 BMs a day. Certainly no more accidents. Her baseline stool description generally was BSS 4. -she has been eating better, tolerating solid foods without nausea or vomiting. She actually has gained a little bit of weight. -no longer having cramping and has not had to use Bentyl for over a month. -is scheduled to see GI for 2nd opinion in August. A review of systems was negative except for the following: Gastrointestinal: Stools BSS 5-6, generally 2-3 daily. No blood. Musculoskeletal: muscular weakness and back discomfort related to her scoliosis and Acuna rods.. Exam BP 96/70 (BP Site: Left Arm, BP Postition: Sitting) Pulse 72 Temp 36.7 C (98.1 F) (Oral) Resp 18 Ht 154.9 cm (5' 1 ) Wt 59.4 kg (131 lb) SpO2 98% BMI 24.75 kg/m Physical Exam Vitals reviewed. Constitutional: General: She is not in acute distress. Appearance: She is normal weight. She is not toxic-appearing. HENT: Right Ear: External ear normal. Left Ear: External ear normal. Mouth/Throat: Mouth: Mucous membranes are moist. Eyes: General: No scleral icterus. Cardiovascular: Rate and Rhythm: Normal rate. Pulmonary: Effort: Pulmonary effort is normal. Breath sounds: No wheezing or rales. Abdominal: General: There is no distension. Palpations: Abdomen is soft. Tenderness: There is no abdominal tenderness. There is no guarding. Musculoskeletal: Right lower leg: No edema. Left lower leg: No edema. Comments: Severe kyphoscoliosis convexity to the right. Lymphadenopathy: Cervical: No cervical adenopathy. Skin: General: Skin is warm and dry. Coloration: Skin is not jaundiced. Findings: No bruising. Neurological: Mental Status: She is alert and oriented to person, place, and time. Psychiatric: Mood and Affect: Mood normal. Behavior: Behavior normal. Meds Current Outpatient Medications: dicyclomine (BENTYL) 20 mg tablet, Have it,but has not taken it., Disp: , Rfl: famotidine (PEPCID) 40 mg tablet, Take 1 tablet (40 mg total) by mouth nightly., Disp: 90 tablet, Rfl: 1 mesalamine (DELZICOL) 400 mg capsule (with del rel tablets) DR capsule, Take 1 capsule (400 mg total) by mouth in the morning and 1 capsule (400 mg total) in the evening. Take with meals., Disp: 60 capsule, Rfl: 1 Lab Results Admission on 05/31/2024, Discharged on 05/31/2024 Component Date Value Ref Range Status White Blood Cells 05/31/2024 11.0 4.0 - 11.0 X10E9/L Final RBC count 05/31/2024 4.62 3.80 - 5.20 X10E12/L Final Hemoglobin 05/31/2024 11.3 (L) 11.7 - 15.5 g/dL Final Hematocrit 05/31/2024 35.2 35 - 47 % Final MCV 05/31/2024 76 (L) 80 - 100 fL Final MCH 05/31/2024 24.4 (L) 27 - 34 pg Final MCHC 05/31/2024 32.1 32 - 36 g/dL Final RDW 05/31/2024 15.5 (H) 11.5 - 15.0 % Final Platelets 05/31/2024 300 150 - 450 X10E9/L Final MPV 05/31/2024 7.7 7 - 12 fL Final % neutrophils 05/31/2024 78.1 % Final % lymphocytes 05/31/2024 11.4 % Final % monocytes 05/31/2024 10.2 % Final % eosinophils 05/31/2024 0.1 % Final % Basophils 05/31/2024 0.2 % Final Neutrophils Absolute (A) 05/31/2024 8.6 (H) 1.5 - 6.6 X10E9/L Final Lymphocytes Absolute 05/31/2024 1.3 1.0 - 3.5 X10E9/L Final Monocytes Absolute 05/31/2024 1.1 (H) 0 - 0.9 X10E9/L Final Eosinophils Absolute 05/31/2024 0.0 0.0 - 0.4 X10E9/L Final Basophils Absolute 05/31/2024 0.0 0.0 - 0.2 X10E9/L Final Sodium 05/31/2024 128 (L) 134 - 146 mmol/L Final Potassium, Bld 05/31/2024 3.1 (L) 3.5 - 5.0 mmol/L Final Chloride 05/31/2024 93 (L) 98 - 109 mmol/L Final CO2 05/31/2024 28 22 - 32 mmol/L Final Anion gap 05/31/2024 7 5 - 15 mmol/L Final BUN 05/31/2024 19 5 - 23 mg/dL Final Creatinine 05/31/2024 0.84 0.40 - 1.00 mg/dL Final Glucose 05/31/2024 110 (H) 65 - 99 mg/dL Final Calcium 05/31/2024 8.5 8.5 - 10.5 mg/dL Final Total Protein 05/31/2024 7.2 6.0 - 8.0 g/dL Final Albumin 05/31/2024 3.9 3.2 - 5.3 g/dL Final Alkaline Phosphatase 05/31/2024 44 39 - 130 U/L Final AST 05/31/2024 15 0 - 41 U/L Final ALT 05/31/2024 13 0 - 31 U/L Final Total bilirubin 05/31/2024 1.1 0.3 - 1.2 mg/dL Final eGFR (CKD-EPI)non-race dependent 05/31/2024 86 >59 ml/min/1.73sq.m Final Other Testing No results found. Geovanni Rivers DO., [facility] Office: [phone] documented in this encounter [facility] 06-08-2024 Miscellaneous Notes Pt called and states that since she has been taking the pepcid her indigestion is worse especially at night. She has been taking it for about a week. Please advise. Message noted. Pepcid cannot cause indigestion. She should continue to take it. She needs to follow anti reflux precautions: - No caffeine -No chocolate - No foods with tomatoes, no spicy foods, no acidic foods or drink like grapefruit, lemonade, vinegar - No soda pop - No eating or drinking for 2 - 3 hours before going to bed - Elevate the head of her bed on a brick or 2x4 Called pt. Read note. Pt verbalizes understanding. documented in this encounter [facility] 06-08-2024 Telephone encounter Note Pt called and states that since she has been taking the pepcid her indigestion is worse especially at night. She has been taking it for about a week. Please advise. [facility] 06-08-2024 Telephone encounter Note Message noted. Pepcid cannot cause indigestion. She should continue to take it. She needs to follow anti reflux precautions: - No caffeine -No chocolate - No foods with tomatoes, no spicy foods, no acidic foods or drink like grapefruit, lemonade, vinegar - No soda pop - No eating or drinking for 2 - 3 hours before going to bed - Elevate the head of her bed on a brick or 2x4 [facility] 06-08-2024 Telephone encounter Note Called pt. Read note. Pt verbalizes understanding. [facility] 05-31-2024 History of Present illness Narrative IM PROGRESS NOTE Patient - Kelli Lake Age - 49 y.o. - 1975 ASSESSMENT & PLAN 1. 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[facility]) -I reviewed the biopsy reports previously taken with the patient. -the long-term problems and morbidity associated with untreated ulcerative colitis. -we talked about the various treatment options including the medications that have been tried, starting rectal steroids, and TNF petros injections. -since she was able to swallow the most recent mesalamine (Delzicol), we will have her start taking this once daily with food to try and build up her tolerance. -will add anti reflux medications due to the associated heartburn she experienced previously. -in addition, we will start a FODMAP diet. Printed instructions were given to the patient. A referral to dietitian was offered if she has questions. 2. IBD (inflammatory bowel disease) -as above -patient was given the number to Gastroenterology, and advised to call and try and schedule a earlier appointment than August. - mesalamine (DELZICOL) 400 mg capsule (with del rel tablets) DR capsule; Take 1 capsule (400 mg total) by mouth in the morning. 3. Heartburn -secondary to mesalamine -start famotidine 40 mg daily - famotidine (PEPCID) 40 mg tablet; Take 1 tablet (40 mg total) by mouth nightly. Dispense: 30 tablet; Refill: 1 4. Nausea and vomiting, unspecified vomiting type -we discussed that there are multiple anti nausea medications, but we will stick with promethazine tablets and rectal suppositories. She may use the tablets initially, but if she is not able to keep them down to control her symptoms, needs to use the promethazine rectal suppository. 5. Hyponatremia with extracellular fluid depletion -secondary to her recent nausea and vomiting -will monitor serially Subjective FOLLOW-UP: EMERGENCY DEPARTMENT ([place]) and hospital visit ([place]) Patient was discharged from the facility on: 05/31/2024 from the ED, and 05/25/2024 for hospital visit at [place] Diagnosis was: 1. Was admitted to [place] for nausea vomiting and colitis. CT showed gloria colitis and was treated with antibiotics and steroids. Was sent home on antibiotics and steroids. The antibiotics were stopped due to problems with side effects, and she completed a course of prednisone. She initially was having 3-4 loose (BSS 5-6) daily when she was admitted to the hospital, but after finishing the steroids was down to 1 solid formed bowel movement daily. She then started having nausea and vomiting once again, so presented to the emergency department at [place]. Work-up and testing included: Surgery or biopsies? No Imaging / Xrays / Scans? Yes (CT of abdomen results noted below) Blood work? Yes (hyponatremia, mild anemia) Consults? No Transfusions, injections or infusions? Yes, given antiemetics This is a follow up of a pre-existing problem. The patient had been diagnosed with ulcerative colitis earlier this year based on biopsy from the colon. Had an additional CRP markedly elevated 2.75. Was discharged with the following treatments or medications: Patient had been started on anti-inflammatory agents orally following her colonoscopy. She was tried on sulfasalazine, Rowasa, and mesalamine. She says she could not swallow most of these pills. She was able to keep down Delzicol, but it did cause heartburn so she stopped it after 1 dose. She did think her bowels more better controlled when she took some of these medications. She does have intermittent nausea and vomiting, which seems to be related to dietary choices, but maybe related to some of her UC flare-ups. She has been given multiple medications including Bentyl, promethazine orally which symptomatically help. However, when she is vomiting she can not keep them down. She was given a promethazine suppository, but did not use it because I do not know how . She was given a low residue diet, which she follows partially. She has been referred to Gastroenterology at [facility], but her appointment is not until September 11, 2024. The problem is better than at discharge. But she is afraid symptoms will come back again. New problems since discharge include: Some electrolyte abnormalities including hyponatremia, mild anemia A review of systems was negative except for the following: Gastrointestinal: abdominal pain, appetite loss, change in bowel habits, gas/bloating, heartburn, and nausea/vomiting Musculoskeletal: Severe kyphoscoliosis.. Exam BP 120/60 (BP Site: Left Arm, BP Postition: Sitting) Pulse 79 Temp 36.7 C (98.1 F) (Oral) Ht 154.9 cm (5' 1 ) Wt 57.2 kg (126 lb 1.6 oz) SpO2 97% BMI 23.83 kg/m Physical Exam Vitals reviewed. Exam conducted with a airplane pilot chief present (Mother). Constitutional: General: She is not in acute distress. Appearance: She is normal weight. She is not toxic-appearing. HENT: Right Ear: External ear normal. Left Ear: External ear normal. Mouth/Throat: Mouth: Mucous membranes are moist. Eyes: General: No scleral icterus. Cardiovascular: Rate and Rhythm: Normal rate. Pulmonary: Effort: Pulmonary effort is normal. Breath sounds: No wheezing or rales. Abdominal: General: There is no distension. Palpations: Abdomen is soft. There is no mass. Tenderness: There is abdominal tenderness (Epigastric region). There is no right CVA tenderness, left CVA tenderness or guarding. Hernia: No hernia is present. Musculoskeletal: Right lower leg: No edema. Left lower leg: No edema. Comments: Severe kyphoscoliosis convexity to the right. Lymphadenopathy: Cervical: No cervical adenopathy. Skin: General: Skin is warm and dry. Coloration: Skin is not jaundiced. Findings: No bruising. Neurological: Mental Status: She is alert and oriented to person, place, and time. Psychiatric: Mood and Affect: Mood normal. Behavior: Behavior normal. Meds Current Outpatient Medications: escitalopram (LEXAPRO) 5 mg tablet, Take 1 tablet (5 mg total) by mouth in the morning., Disp: 90 tablet, Rfl: 1 promethazine (PHENERGAN) 12.5 mg suppository, Insert 1 suppository (12.5 mg total) into the rectum every 6 (six) hours as needed for nausea or vomiting., Disp: 12 each, Rfl: 0 promethazine (PHENERGAN) 25 mg tablet, Take 1 tablet (25 mg total) by mouth every 8 (eight) hours as needed for nausea or vomiting for up to 5 days., Disp: 15 tablet, Rfl: 0 famotidine (PEPCID) 40 mg tablet, Take 1 tablet (40 mg total) by mouth nightly., Disp: 30 tablet, Rfl: 1 mesalamine (DELZICOL) 400 mg capsule (with del rel tablets) DR capsule, Take 1 capsule (400 mg total) by mouth in the morning., Disp: , Rfl: No current facility-administered medications for this visit. Lab Results Admission on 05/31/2024, Discharged on 05/31/2024 Component Date Value Ref Range Status White Blood Cells 05/31/2024 11.0 4.0 - 11.0 X10E9/L Final RBC count 05/31/2024 4.62 3.80 - 5.20 X10E12/L Final Hemoglobin 05/31/2024 11.3 (L) 11.7 - 15.5 g/dL Final Hematocrit 05/31/2024 35.2 35 - 47 % Final MCV 05/31/2024 76 (L) 80 - 100 fL Final MCH 05/31/2024 24.4 (L) 27 - 34 pg Final MCHC 05/31/2024 32.1 32 - 36 g/dL Final RDW 05/31/2024 15.5 (H) 11.5 - 15.0 % Final Platelets 05/31/2024 300 150 - 450 X10E9/L Final MPV 05/31/2024 7.7 7 - 12 fL Final % neutrophils 05/31/2024 78.1 % Final % lymphocytes 05/31/2024 11.4 % Final % monocytes 05/31/2024 10.2 % Final % eosinophils 05/31/2024 0.1 % Final % Basophils 05/31/2024 0.2 % Final Neutrophils Absolute (A) 05/31/2024 8.6 (H) 1.5 - 6.6 X10E9/L Final Lymphocytes Absolute 05/31/2024 1.3 1.0 - 3.5 X10E9/L Final Monocytes Absolute 05/31/2024 1.1 (H) 0 - 0.9 X10E9/L Final Eosinophils Absolute 05/31/2024 0.0 0.0 - 0.4 X10E9/L Final Basophils Absolute 05/31/2024 0.0 0.0 - 0.2 X10E9/L Final Sodium 05/31/2024 128 (L) 134 - 146 mmol/L Final Potassium, Bld 05/31/2024 3.1 (L) 3.5 - 5.0 mmol/L Final Chloride 05/31/2024 93 (L) 98 - 109 mmol/L Final CO2 05/31/2024 28 22 - 32 mmol/L Final Anion gap 05/31/2024 7 5 - 15 mmol/L Final BUN 05/31/2024 19 5 - 23 mg/dL Final Creatinine 05/31/2024 0.84 0.40 - 1.00 mg/dL Final Glucose 05/31/2024 110 (H) 65 - 99 mg/dL Final Calcium 05/31/2024 8.5 8.5 - 10.5 mg/dL Final Total Protein 05/31/2024 7.2 6.0 - 8.0 g/dL Final Albumin 05/31/2024 3.9 3.2 - 5.3 g/dL Final Alkaline Phosphatase 05/31/2024 44 39 - 130 U/L Final AST 05/31/2024 15 0 - 41 U/L Final ALT 05/31/2024 13 0 - 31 U/L Final Total bilirubin 05/31/2024 1.1 0.3 - 1.2 mg/dL Final eGFR (CKD-EPI)non-race dependent 05/31/2024 86 >59 ml/min/1.73sq.m Final Other Testing CLINICAL INFORMATION: Abdominal pain, acute, nonlocalized; History of ulcerative colitis. TECHNIQUE: COMPARISON: No relevant prior studies available. FINDINGS: Lack of intravenous contrast limits evaluation of the viscera and vessels. LOWER THORAX: Trace pericardial fluid. Otherwise Unremarkable. HEPATOBILIARY: No focal aggressive appearing hepatic lesions. No biliary ductal dilatation. Gallbladder is unremarkable. SPLEEN: Unremarkable. PANCREAS: Grossly normal for technique. ADRENALS: No exophytic adrenal nodules. KIDNEYS/URETERS: No aggressive appearing exophytic mass lesion. No obstructive renal calculus. No collecting system dilatation. Bladder: Underdistended, limiting evaluation. PELVIC ORGANS: Within normal limits. GI TRACT: No acute bowel obstruction. LYMPH NODES: No enlarged lymph nodes within limitations of noncontrast technique. VESSELS: No abdominal aortic aneurysm. BONES AND SOFT TISSUES: No suspicious osseous lesion. Severe scoliosis with partially imaged spinal elbert. PERITONEUM/RETROPERITONEUM: No free air or significant free fluid. IMPRESSION: * Limited evaluation in the absence of intravenous contrast. * Within this limitation, no acute findings in the abdomen or pelvis. Geovanni Rivers DO., [facility] Physicians Office: [phone] documented in this encounter [facility] 05-27-2024 Miscellaneous Notes ----- Message from Eun sent at 05/27/2024 8:13 AM EDT ----- Contract: [id number] - Was just discharged yesterday from ER and the 2 antibiotic pills she has questions about. Contract: [id number] Was hospitalized ([place]) x 5 days for a Colitis flair up -she was discharged yesterday States that she was discharged on Augmentin 875-125mg twice a day x 7 days Vancomycin 125 mg 4 times a day x 7 days Patient states that the Augmentin is too large and she cannot swallow it and the pharmacy told her she cannot break it in half or crush it- she wants to know if she can get a liquid form of Augmentin Patient also wants to know if should even be taking the Vancomycin since they have her on Augmentin Will speak to provider irrigation service technician to discuss Reason for Disposition [1] Follow-up call from patient regarding patient's clinical status AND [2] information urgent Protocols used: PCP Call - No Triage-A- Called Dr Rivers on his cell phone- warm transferred him to [facility] documented in this encounter [facility] 05-27-2024 Telephone encounter Note ----- Message from Eun sent at 05/27/2024 8:13 AM EDT ----- Contract: [id number] - Was just discharged yesterday from ER and the 2 antibiotic pills she has questions about. [facility] 05-27-2024 Telephone encounter Note Contract: [id number] Was hospitalized ([place]) x 5 days for a Colitis flair up -she was discharged yesterday States that she was discharged on Augmentin 875-125mg twice a day x 7 days Vancomycin 125 mg 4 times a day x 7 days Patient states that the Augmentin is too large and she cannot swallow it and the pharmacy told her she cannot break it in half or crush it- she wants to know if she can get a liquid form of Augmentin Patient also wants to know if should even be taking the Vancomycin since they have her on Augmentin Will speak to provider irrigation service technician to discuss Reason for Disposition [1] Follow-up call from patient regarding patient's clinical status AND [2] information urgent Protocols used: PCP Call - No Triage-A- [facility] 05-27-2024 Telephone encounter Note Called Dr Rivers on his cell phone- warm transferred him to [facility] 05-02-2024 Miscellaneous Notes Message noted. I have no other medications that I can offer. I suggest that we have her see a sorting and folding supervisor at this time. [facility]os[facility] are in [place]. I can make arrangements if she is willing Note documented in this encounter [facility] 05-02-2024 Telephone encounter Note Message noted. I have no other medications that I can offer. I suggest that we have her see a sorting and folding supervisor at this time. Closest are in [place]. I can make arrangements if she is willing Note [facility] 05-01-2024 Miscellaneous Notes Pt called and would like to let you know that she had side effects of new medication. It caused her to have nausea and cramping since last week she stopped after 3 days and is feeling better. Do you want to try something else? Pharmacy is listed and correct. Message noted. I have no other medications that I can offer. I suggest that we have her see a sorting and folding supervisor at this time. [facility] are in [place]. I can make arrangements if she is willing Patient agrees to see specialist Message noted. A referral to Shakira Arias at [facility], was sent today The patient can schedule her appointment at any time. documented in this encounter [facility] 05-01-2024 Telephone encounter Note Pt called and would like to let you know that she had side effects of new medication. It caused her to have nausea and cramping since last week she stopped after 3 days and is feeling better. Do you want to try something else? Pharmacy is listed and correct. [facility] 05-01-2024 Telephone encounter Note Message noted. I have no other medications that I can offer. I suggest that we have her see a sorting and folding supervisor at this time. Closest are in [place]. I can make arrangements if she is willing [facility] 05-01-2024 Telephone encounter Note Patient agrees to see specialist [facility] 05-01-2024 Telephone encounter Note Message noted. A referral to Shakira Arias, at [facility], was sent today The patient can schedule her appointment at any time. [employer] 04-19-2024 History of Present illness Narrative IM PROGRESS NOTE Patient - Kelli Lake Age - 49 y.o. [facility] 1975 [id number] ASSESSMENT & PLAN 1. IBD (inflammatory bowel disease) -initially had improvement in symptoms with sulfasalazine, but unable to tolerate the large pills -will start mesalamine daily -monitor symptoms. If they are controlled, and she can tolerate the pills, we will continue on this routinely. Would need a recheck colonoscopy in 6 months. -if unable to tolerate the new medication, or symptoms not controlled, will refer to GI for further evaluation. - mesalamine (LIALDA) 1.2 gram EC tablet; Take 1 tablet (1.2 g total) by mouth daily with breakfast. Dispense: 30 tablet; Refill: 1 Subjective 49-year-old female presents for recheck on her bowels. Had been diagnosed with C difficile colitis early in the year, and treated several times. Subsequently underwent a colonoscopy which demonstrated pathology, and serology were consistent with inflammatory bowel disease, probable UC. -at last visit patient was started on sulfasalazine 4 times daily. -the patient reports an improvement in her bowel habits on the sulfasalazine, with less cramping, less frequency and more formed. However she had trouble tolerating the large pills and stopped them. -her bowel symptoms have returned, although not as severe as in the past. -currently will have 2-4 loose, semi formed BMs daily. Still with some cramping in the right lower quadrant intermittently. No blood. -has been eating better, without any persistent nausea and has actually gained 2 lb. A review of systems was negative except for the following: General: weight gain Gastrointestinal: abdominal pain. Exam BP 100/48 (BP Site: Right Arm, BP Postition: Sitting) Pulse 82 Temp 36.6 C (97.8 F) (Oral) Resp 18 Ht 154.9 cm (5' 1 ) Wt 61.1 kg (134 lb 12.8 oz) SpO2 99% BMI 25.47 kg/m Physical Exam Vitals reviewed. Exam conducted with a airplane pilot chief present (Mother). Constitutional: General: She is not in acute distress. Appearance: She is normal weight. She is not toxic-appearing. HENT: Right Ear: External ear normal. Left Ear: External ear normal. Mouth/Throat: Mouth: Mucous membranes are moist. Eyes: General: No scleral icterus. Cardiovascular: Rate and Rhythm: Normal rate. Pulmonary: Effort: Pulmonary effort is normal. Breath sounds: No wheezing or rales. Abdominal: Palpations: Abdomen is soft. Musculoskeletal: Right lower leg: No edema. Left lower leg: No edema. Lymphadenopathy: Cervical: No cervical adenopathy. Skin: General: Skin is warm and dry. Coloration: Skin is not jaundiced. Findings: No bruising. Neurological: Mental Status: She is alert and oriented to person, place, and time. Psychiatric: Mood and Affect: Mood normal. Behavior: Behavior normal. Meds Current Outpatient Medications: escitalopram (LEXAPRO) 5 mg tablet, Take 1 tablet (5 mg total) by mouth in the morning., Disp: 90 tablet, Rfl: 1 mesalamine (LIALDA) 1.2 gram EC tablet, Take 1 tablet (1.2 g total) by mouth daily with breakfast., Disp: 30 tablet, Rfl: 1 Lab Results No visits with results within 1 Month(s) from this visit. Latest known visit with results is: Admission on 02/10/2024, Discharged on 02/10/2024 Component Date Value Ref Range Status White Blood Cells 02/10/2024 12.6 (H) 4.0 - 11.0 X10E9/L Final RBC count 02/10/2024 4.90 3.80 - 5.20 X10E12/L Final Hemoglobin 02/10/2024 12.2 11.7 - 15.5 g/dL Final Hematocrit 02/10/2024 36.4 35 - 47 % Final MCV 02/10/2024 74 (L) 80 - 100 fL Final MCH 02/10/2024 24.9 (L) 27 - 34 pg Final MCHC 02/10/2024 33.5 32 - 36 g/dL Final RDW 02/10/2024 19.1 (H) 11.5 - 15.0 % Final Platelets 02/10/2024 435 150 - 450 X10E9/L Final MPV 02/10/2024 8.1 7 - 12 fL Final % neutrophils 02/10/2024 90.8 % Final % lymphocytes 02/10/2024 5.7 % Final % monocytes 02/10/2024 3.2 % Final % eosinophils 02/10/2024 0.1 % Final % Basophils 02/10/2024 0.2 % Final Neutrophils Absolute (A) 02/10/2024 11.5 (H) 1.5 - 6.6 X10E9/L Final Lymphocytes Absolute 02/10/2024 0.7 (L) 1.0 - 3.5 X10E9/L Final Monocytes Absolute 02/10/2024 0.4 0 - 0.9 X10E9/L Final Eosinophils Absolute 02/10/2024 0.0 0.0 - 0.4 X10E9/L Final Basophils Absolute 02/10/2024 0.0 0.0 - 0.2 X10E9/L Final Sodium 02/10/2024 131 (L) 134 - 146 mmol/L Final Potassium, Bld 02/10/2024 3.7 3.5 - 5.0 mmol/L Final Chloride 02/10/2024 99 98 - 109 mmol/L Final CO2 02/10/2024 24 22 - 32 mmol/L Final Anion gap 02/10/2024 8 5 - 15 mmol/L Final BUN 02/10/2024 11 5 - 23 mg/dL Final Creatinine 02/10/2024 0.71 0.40 - 1.00 mg/dL Final Glucose 02/10/2024 114 (H) 65 - 99 mg/dL Final Calcium 02/10/2024 8.5 8.5 - 10.5 mg/dL Final Total Protein 02/10/2024 7.6 6.0 - 8.0 g/dL Final Albumin 02/10/2024 4.1 3.2 - 5.3 g/dL Final Alkaline Phosphatase 02/10/2024 53 39 - 130 U/L Final AST 02/10/2024 17 0 - 41 U/L Final ALT 02/10/2024 10 0 - 31 U/L Final Total bilirubin 02/10/2024 1.0 0.3 - 1.2 mg/dL Final eGFR (CKD-EPI)non-race dependent 02/10/2024 >90 >59 ml/min/1.73sq.m Final Lactate w/ Reflex 02/10/2024 1.1 0.4 - 2.0 mmol/L Final Lipase 02/10/2024 42 (H) 17 - 40 U/L Final Specific gravity [facility] 02/10/2024 1.025 1.003 - 1.035 Final Leukocyte esterase MEÑO 02/10/2024 Negative Negative^Negative Final Nitrite [facility] 02/10/2024 Negative Negative^Negative Final Ph 02/10/2024 6.0 5.0 - 8.5 Final Protein MEÑO 02/10/2024 30 (A) Negative^Negative mg/dL Final Urine glucose [facility] 02/10/2024 Negative Negative^Negative mg/dL Final Ketones [facility] 02/10/2024 80 (A) Negative^Negative mg/dL Final Urobilinogen [facility] 02/10/2024 0.2 <1.1 eu/dL Final Bilirubin [facility] 02/10/2024 Small (A) Negative^Negative Final Hemoglobin [facility] 02/10/2024 Negative Negative^Negative Final Nursing urine 02/10/2024 Negative Negative^Negative Final Other Testing No results found. Geovanni Rivers DO., [facility] Physicians Office: [phone] documented in this encounter [facility] 03-16-2024 History of Present illness Narrative IM PROGRESS NOTE Patient - Kelli Lake Age - 48 y.o. - 1975 ASSESSMENT & PLAN 1. IBD (inflammatory bowel disease) -I reviewed the results of the recent colonoscopy with the patient. -I reviewed the results of the recent biopsy report with the patient. -certainly the findings do not give us a definitive diagnosis for either infection or inflammatory bowel disease. -given that she has ongoing symptoms, we will start sulfasalazine 500 mg q.i.d. (will start with 1 tablet twice daily, and gradually work up) -continue to advance diet as tolerated -we will recheck on her symptoms after initiating anti-inflammatory medications -if they persist, may need to repeat sigmoid biopsy in 4-6 months -serology including CRP and p-ANCA were drawn today. Consider a saccaromyces cerevisiae antibody level. - sulfaSALAzine (AZULFIDINE) 500 mg tablet; Take 1 tablet (500 mg total) by mouth in the morning and 1 tablet (500 mg total) at noon and 1 tablet (500 mg total) in the evening and 1 tablet (500 mg total) before bedtime. Dispense: 120 tablet; Refill: 2 - C-reactive protein; Future - Cytoplasmic Neutrophilic Ab, S; Future 2. Colitis due to Clostridioides difficile -previously documented infection, with some residual pseudo membranes noted on colonoscopic imaging -advised patient to start OTC probiotics b.i.d. -avoidance of antibiotics! Subjective 48-year-old female presents for follow-up on her diarrhea and review of recent colonoscopy. She had been diagnosed with C difficile colitis at [facility] earlier this year, and had a very prolonged recovery, with several exacerbations and returned to the ED. she was having difficulty eating due to vomiting, along with frequent loose stools. She had been treated initially with Flagyl, and ultimately was treated with oral vancomycin. -since her last visit, her bowels are much better controlled. She generally has 2 or 3 mushy stools in the morning, and again in the evening. However they are controlled and without cramping, blood or mucus. -her appetite is improved. She is no longer having any nausea or vomiting. Is not having to take the Phenergan RS. -she is following a low residue diet, but has been able to expand the food choices without problems recently. -she underwent a colonoscopy last week which did show some pseudomembranes, but there were some patchy areas of colitis, and the biopsy did show acute and chronic inflammatory changes, with crypt distortion, bringing up the possibility of ulcerative colitis, and even Crohn's, although no granulomas were noted. -there is a family history of ulcerative colitis in a cousin. A review of systems was negative except for the following: Gastrointestinal: Loose, mushy stools Musculoskeletal: joint stiffness and and known severe scoliosis of the thoracolumbar spine. Exam BP 100/80 (BP Site: Right Arm, BP Postition: Sitting) Pulse 71 Temp 36.8 C (98.2 F) (Oral) Ht 154.9 cm (5' 1 ) Wt 59.9 kg (132 lb 1.6 oz) SpO2 98% BMI 24.96 kg/m Physical Exam Vitals reviewed. Exam conducted with a airplane pilot chief present (Mother). Constitutional: General: She is not in acute distress. Appearance: She is normal weight. She is not toxic-appearing. HENT: Right Ear: External ear normal. Left Ear: External ear normal. Mouth/Throat: Mouth: Mucous membranes are moist. Eyes: General: No scleral icterus. Cardiovascular: Rate and Rhythm: Normal rate. Pulmonary: Effort: Pulmonary effort is normal. Breath sounds: No wheezing or rales. Abdominal: Palpations: Abdomen is soft. Musculoskeletal: Right lower leg: No edema. Left lower leg: No edema. Lymphadenopathy: Cervical: No cervical adenopathy. Skin: General: Skin is warm and dry. Coloration: Skin is not jaundiced. Findings: No bruising. Neurological: Mental Status: She is alert and oriented to person, place, and time. Psychiatric: Mood and Affect: Mood normal. Behavior: Behavior normal. Meds Current Outpatient Medications: escitalopram (LEXAPRO) 5 mg tablet, Take 1 tablet (5 mg total) by mouth in the morning., Disp: 90 tablet, Rfl: 1 sulfaSALAzine (AZULFIDINE) 500 mg tablet, Take 1 tablet (500 mg total) by mouth in the morning and 1 tablet (500 mg total) at noon and 1 tablet (500 mg total) in the evening and 1 tablet (500 mg total) before bedtime., Disp: 120 tablet, Rfl: 2 Lab Results No visits with results within 1 Month(s) from this visit. Latest known visit with results is: Admission on 02/10/2024, Discharged on 02/10/2024 Component Date Value Ref Range Status White Blood Cells 02/10/2024 12.6 (H) 4.0 - 11.0 X10E9/L Final RBC count 02/10/2024 4.90 3.80 - 5.20 X10E12/L Final Hemoglobin 02/10/2024 12.2 11.7 - 15.5 g/dL Final Hematocrit 02/10/2024 36.4 35 - 47 % Final MCV 02/10/2024 74 (L) 80 - 100 fL Final MCH 02/10/2024 24.9 (L) 27 - 34 pg Final MCHC 02/10/2024 33.5 32 - 36 g/dL Final RDW 02/10/2024 19.1 (H) 11.5 - 15.0 % Final Platelets 02/10/2024 435 150 - 450 X10E9/L Final MPV 02/10/2024 8.1 7 - 12 fL Final % neutrophils 02/10/2024 90.8 % Final % lymphocytes 02/10/2024 5.7 % Final % monocytes 02/10/2024 3.2 % Final % eosinophils 02/10/2024 0.1 % Final % Basophils 02/10/2024 0.2 % Final Neutrophils Absolute (A) 02/10/2024 11.5 (H) 1.5 - 6.6 X10E9/L Final Lymphocytes Absolute 02/10/2024 0.7 (L) 1.0 - 3.5 X10E9/L Final Monocytes Absolute 02/10/2024 0.4 0 - 0.9 X10E9/L Final Eosinophils Absolute 02/10/2024 0.0 0.0 - 0.4 X10E9/L Final Basophils Absolute 02/10/2024 0.0 0.0 - 0.2 X10E9/L Final Sodium 02/10/2024 131 (L) 134 - 146 mmol/L Final Potassium, Bld 02/10/2024 3.7 3.5 - 5.0 mmol/L Final Chloride 02/10/2024 99 98 - 109 mmol/L Final CO2 02/10/2024 24 22 - 32 mmol/L Final Anion gap 02/10/2024 8 5 - 15 mmol/L Final BUN 02/10/2024 11 5 - 23 mg/dL Final Creatinine 02/10/2024 0.71 0.40 - 1.00 mg/dL Final Glucose 02/10/2024 114 (H) 65 - 99 mg/dL Final Calcium 02/10/2024 8.5 8.5 - 10.5 mg/dL Final Total Protein 02/10/2024 7.6 6.0 - 8.0 g/dL Final Albumin 02/10/2024 4.1 3.2 - 5.3 g/dL Final Alkaline Phosphatase 02/10/2024 53 39 - 130 U/L Final AST 02/10/2024 17 0 - 41 U/L Final ALT 02/10/2024 10 0 - 31 U/L Final Total bilirubin 02/10/2024 1.0 0.3 - 1.2 mg/dL Final eGFR (CKD-EPI)non-race dependent 02/10/2024 >90 >59 ml/min/1.73sq.m Final Lactate w/ Reflex 02/10/2024 1.1 0.4 - 2.0 mmol/L Final Lipase 02/10/2024 42 (H) 17 - 40 U/L Final Specific gravity [facility] 02/10/2024 1.025 1.003 - 1.035 Final Leukocyte esterase [facility] 02/10/2024 Negative Negative^Negative Final Nitrite [facility] 02/10/2024 Negative Negative^Negative Final Ph 02/10/2024 6.0 5.0 - 8.5 Final Protein [facility] 02/10/2024 30 (A) Negative^Negative mg/dL Final Urine glucose [facility] 02/10/2024 Negative Negative^Negative mg/dL Final Ketones [facility] 02/10/2024 80 (A) Negative^Negative mg/dL Final Urobilinogen [facility] 02/10/2024 0.2 <1.1 eu/dL Final Bilirubin [facility] 02/10/2024 Small (A) Negative^Negative Final Hemoglobin [facility] 02/10/2024 Negative Negative^Negative Final Nursing urine 02/10/2024 Negative Negative^Negative Final Other Testing Final Pathologic Diagnosis 1. Transverse colon biopsy: [...] among others. Clinical and endoscopic correlation recommended. Geovanni Rivers DO., [facility] Physicians Office: [phone] documented in this encounter [facility] 03-07-2024 Nurse Note Preoperative Education Checklist- General Surgery date: 03/08/24 Surgery time: 10a Arrival time: 9a 1. Bring a photo ID and your insurance card with you the day of surgery. You will check in at the main lobby of the [facility]- registration desk is straight ahead as soon as you walk in. Tell them you are here for surgery. 2. If you have a Living Will/Durable Power of Risk Control Field Representative for Health Care that is not on file here, please bring a copy the day of surgery. 3. Please shower/bathe the night before surgery with the provided soap or wipes. Do not shower the morning of surgery- you will do use wipes when you arrive here at the hospital before getting into your surgical gown. Do not shave the area of your procedure for 2 days prior to your surgery. 4. NO powder, lotion, perfume/cologne, aftershave, make-up, deodorant, or hair products after you have bathed. 5. NO nail stateless/acrylic on at least one finger. If you are having a hand, wrist or foot surgery then all nail stateless and artificial/acrylic nails must be removed from that hand or foot. 6. Avoid ALL Aspirin and non-steroidal anti-inflammatory drugs and certain vitamins (Ibuprofen, Advil, Aleve, Excedrin, Meloxicam, Celebrex, fish/krill oil, etc.) for 7 days prior to surgery as instructed by your surgeon and/or your prescribing doctor. Tylenol IS ALLOWED. If you are on Ticlid, Xarelto, Eliquis, Pradaxa, Plavix or Coumadin, please check with your prescribing doctor for instructions for when to stop them. 7. If you use an inhaler, continue to use it routinely. 8. Nothing to eat or drink (not even water, gum, mints, or hard candy!) AFTER midnight prior to your surgery. 9. Take only medications that you are instructed to on the morning of surgery with a TINY SIP OF WATER. 10. Choose a responsible adult that will be able to drive you home when you are discharged from your hospital stay for your surgery and can stay with you in your home for 24 hours after your procedure. You must NOT drive any vehicle or operate any machinery for 24 hours after surgery. 11. When you dress for your appointment, please wear loose fitting clothing that is appropriate to accommodate your surgical area procedure. BRING WITH YOU ANY DEVICES YOU MAY NEED: KAITLIN hose, ice machine, sling/swath, brace or special shoe, oversized zip-up or button up shirt, CPAP machine if staying overnight. 12. Do NOT wear jewelry, watches, or any piercings or metal for surgery- leave these valuables and money at home. 13. Do NOT wear contact lenses for surgery- glasses are okay if needed. 14. The anesthesiologist will talk with you the day of surgery and will ask you to sign a Consent Form. 15. Refrain from smoking or any type of tobacco use for at least 8 hours and marijuana for 24 hours prior to arrival for your surgery. 16. If a GREEN BLOOD band is given to you, please bring it with you for the day of surgery. 17. Notify your surgeon if you develop any illness before your surgery. 18. If you are staying overnight, please DO NOT BRING your home medications with you. 19. If you have any questions prior to surgery, please call the Preadmission Testing office at [phone], Mon.-Fri. 7 a.m.-3 p.m. Leave a voicemail if needed. Pre-Surgery Instructions: Medication Instructions escitalopram (LEXAPRO) 5 mg tablet Stop taking 0 days prior to procedure dicyclomine (BENTYL) 20 mg tablet Stop taking 0 days prior to procedure hyoscyamine (LEVSIN) 0.125 mg SL tablet Stop taking 0 days prior to procedure peg 3350-sod sulf,ashq-aey-miq 178.7-7.3-0.5 gram recon soln Check with prescribing doctor for instructions polyethylene glycol (GOLYTELY) 236-22.74-6.74 -5.86 gram solution Check with prescribing doctor for instructions PROMETHEGAN 12.5 mg suppository Stop taking 0 days prior to procedure [employer] 03-07-2024 Miscellaneous Notes Preoperative Education Checklist- General Surgery date: 03/08/24 Surgery time: 10a Arrival time: 9a 1. Bring a photo ID and your insurance card with you the day of surgery. You will check in at the main lobby of the [facility]- registration desk is straight ahead as soon as you walk in. Tell them you are here for surgery. 2. If you have a Living Will/Durable Power of Risk Control Field Representative for Health Care that is not on file here, please bring a copy the day of surgery. 3. Please shower/bathe the night before surgery with the provided soap or wipes. Do not shower the morning of surgery- you will do use wipes when you arrive here at the hospital before getting into your surgical gown. Do not shave the area of your procedure for 2 days prior to your surgery. 4. NO powder, lotion, perfume/cologne, aftershave, make-up, deodorant, or hair products after you have bathed. 5. NO nail stateless/acrylic on at least one finger. If you are having a hand, wrist or foot surgery then all nail stateless and artificial/acrylic nails must be removed from that hand or foot. 6. Avoid ALL Aspirin and non-steroidal anti-inflammatory drugs and certain vitamins (Ibuprofen, Advil, Aleve, Excedrin, Meloxicam, Celebrex, fish/krill oil, etc.) for 7 days prior to surgery as instructed by your surgeon and/or your prescribing doctor. Tylenol IS ALLOWED. If you are on Ticlid, Xarelto, Eliquis, Pradaxa, Plavix or Coumadin, please check with your prescribing doctor for instructions for when to stop them. 7. If you use an inhaler, continue to use it routinely. 8. Nothing to eat or drink (not even water, gum, mints, or hard candy!) AFTER midnight prior to your surgery. 9. Take only medications that you are instructed to on the morning of surgery with a TINY SIP OF WATER. 10. Choose a responsible adult that will be able to drive you home when you are discharged from your hospital stay for your surgery and can stay with you in your home for 24 hours after your procedure. You must NOT drive any vehicle or operate any machinery for 24 hours after surgery. 11. When you dress for your appointment, please wear loose fitting clothing that is appropriate to accommodate your surgical area procedure. BRING WITH YOU ANY DEVICES YOU MAY NEED: KAITLIN hose, ice machine, sling/swath, brace or special shoe, oversized zip-up or button up shirt, CPAP machine if staying overnight. 12. Do NOT wear jewelry, watches, or any piercings or metal for surgery- leave these valuables and money at home. 13. Do NOT wear contact lenses for surgery- glasses are okay if needed. 14. The anesthesiologist will talk with you the day of surgery and will ask you to sign a Consent Form. 15. Refrain from smoking or any type of tobacco use for at least 8 hours and marijuana for 24 hours prior to arrival for your surgery. 16. If a GREEN BLOOD band is given to you, please bring it with you for the day of surgery. 17. Notify your surgeon if you develop any illness before your surgery. 18. If you are staying overnight, please DO NOT BRING your home medications with you. 19. If you have any questions prior to surgery, please call the Preadmission Testing office at [phone], Mon.-Fri. 7 a.m.-3 p.m. Leave a voicemail if needed. Pre-Surgery Instructions: Medication Instructions escitalopram (LEXAPRO) 5 mg tablet Stop taking 0 days prior to procedure dicyclomine (BENTYL) 20 mg tablet Stop taking 0 days prior to procedure hyoscyamine (LEVSIN) 0.125 mg SL tablet Stop taking 0 days prior to procedure peg 3350-sod sulf,eaid-ngn-vya 178.7-7.3-0.5 gram recon soln Check with prescribing doctor for instructions polyethylene glycol (GOLYTELY) 236-22.74-6.74 -5.86 gram solution Check with prescribing doctor for instructions PROMETHEGAN 12.5 mg suppository Stop taking 0 days prior to procedure documented in this encounter [facility] 02-08-2024 History of Present illness Narrative IM PROGRESS NOTE Patient - Kelli Lake Age - 48 y.o. - 1975 ASSESSMENT & PLAN 1. Colitis -patient with several episodes of colitis, including C difficile colitis most recently. -at the current time, not having symptoms directly related to active infection, but more related to recovering from the infection. -patient was advised, and was instructed in a low residue diet. A printed instruction sheet was given and reviewed with her. -was told to stop using hydrocodone for pain, due to negative GI effects of opioids. Instead use high Cosamin for pain or cramping, and we can switch this to Bentyl if needed -proceed with a colonoscopy due to recurrent episodes and need to exclude inflammatory or ischemic colitis. In addition, is due for cancer screening based on her age. - Colonoscopy; Future -further recommendations following results of testing 2. Hypotension, unspecified hypotension type -I suspect she is somewhat dehydrated, related to her bowel symptoms, the abnormally hot weather, and generally low fluid intake -was advised to increase fluid intake to 50-60 oz daily Subjective 48-year-old female is a new patient to me. Previously seen in this practice by retired practitioner. The patient is following up because of ongoing bowel issues. Currently having constipation and occasional cramping in her bowels. Is using oxycodone for the pain and cramping, and occasionally uses high Cosamin. Does have ondansetron prescribed but rarely uses it, she does not think it helps. Does not always have nausea. Does report occasional episodes where it is difficult to swallow. She currently is not following any particular diet, all reports eating fresh fruit over the last few days. Her bowels are intermittently loose and hard. She does report occasional blood streaking of mucus. Has never had any problems like this in the past. -problems started about 6 weeks ago when she was seen in [place] ED, diagnosed with colitis, and placed on antibiotics. Her symptoms never really went away, and she returned to the emergency department for evaluation. -at that time she was diagnosed with C difficile colitis, was placed on Flagyl and steroids and discharged home. She felt terrible with nausea vomiting and generalized weakness. -she returned to [place] ED, was admitted to the hospital for dehydration, and switched to vancomycin orally. She completed the course of vancomycin, with improvement in her symptoms, but problems linger on as described in the 1st paragraph. -there is no family history of colitis or inflammatory bowel disease. A review of systems was negative except for the following: General: weight loss. She estimates she drinks around 40 oz of liquid daily. Respiratory: Limited breathing due to scoliosis and restrictive lung disease Gastrointestinal: change in bowel habits, diarrhea, gas/bloating, and nausea/vomiting. Exam BP 94/68 (BP Site: Left Arm, BP Postition: Sitting) Pulse 78 Temp 36.7 C (98.1 F) (Oral) Resp 18 Ht 154.9 cm (5' 1 ) Wt 60.2 kg (132 lb 11.2 oz) SpO2 96% BMI 25.07 kg/m Physical Exam Vitals reviewed. Exam conducted with a airplane pilot chief present (Mother). Constitutional: General: She is not in acute distress. Appearance: She is normal weight. She is not toxic-appearing. HENT: Head: Normocephalic. Right Ear: External ear normal. Left Ear: External ear normal. Nose: Nose normal. Mouth/Throat: Mouth: Mucous membranes are moist. Eyes: General: No scleral icterus. Cardiovascular: Rate and Rhythm: Normal rate and regular rhythm. Pulses: Normal pulses. Heart sounds: No murmur heard. No gallop. Pulmonary: Effort: Pulmonary effort is normal. Breath sounds: No wheezing or rales. Abdominal: General: Abdomen is flat. Bowel sounds are normal. There is no distension. Palpations: Abdomen is soft. There is no mass. Tenderness: There is abdominal tenderness (mild tenderness in right lower quadrant, and to a lesser extent diffusely). There is no guarding. Musculoskeletal: Right lower leg: No edema. Left lower leg: No edema. Lymphadenopathy: Cervical: No cervical adenopathy. Skin: General: Skin is warm and dry. Coloration: Skin is not jaundiced. Findings: No bruising. Neurological: Mental Status: She is alert and oriented to person, place, and time. Motor: No weakness. Coordination: Coordination normal. Psychiatric: Mood and Affect: Mood normal. Behavior: Behavior normal. Meds Current Outpatient Medications: escitalopram (LEXAPRO) 5 mg tablet, Take 1 tablet (5 mg total) by mouth in the morning., Disp: 90 tablet, Rfl: 1 hyoscyamine (LEVSIN) 0.125 mg SL tablet, Take 1 tablet (125 mcg total) by mouth every 8 (eight) hours as needed for cramping., Disp: 30 tablet, Rfl: 1 ondansetron ODT (ZOFRAN ODT) 4 mg disintegrating tablet, DISSOLVE 1 (ONE) TABLET ON THE TONGUE EVERY 6 HOURS NEEDED FOR NAUSEA AND VOMITING, Disp: , Rfl: Lab Results No visits with results within 1 Month(s) from this visit. Latest known visit with results is: Hospital Outpatient Visit on 01/07/2024 Component Date Value Ref Range Status Sodium 01/07/2024 138 134 - 146 mmol/L Final Potassium, Bld 01/07/2024 3.9 3.5 - 5.0 mmol/L Final Chloride 01/07/2024 105 98 - 109 mmol/L Final CO2 01/07/2024 25 22 - 32 mmol/L Final Anion gap 01/07/2024 8 5 - 15 mmol/L Final BUN 01/07/2024 5 5 - 23 mg/dL Final Creatinine 01/07/2024 0.74 0.40 - 1.00 mg/dL Final Glucose 01/07/2024 87 65 - 99 mg/dL Final Calcium 01/07/2024 8.6 8.5 - 10.5 mg/dL Final eGFR (CKD-EPI)non-race dependent 01/07/2024 >90 >59 ml/min/1.73sq.m Final Other Testing No results found. Geovanni Rivers DO., [facility] Physicians Office: [phone] documented in this encounter [facility] 01-27-2024 History of Present illness Narrative Subjective Patient ID: Kelli Lake is a 48 y.o. female. She was in the hospital for intractable vomiting The mechanical oxidizer initially thought she had pancreatitis but eventially determined it was a reaction to multiple medication but mostly an intolerance to flagll She is now just taking the vancomycin for c-dificil Stools are still not solid - having a bm about 30 minutes after eating about 4-5 per day Still some stomach cramping the hycosamine is helping She is just completing 14 days of therapy with the vancomycin She has not had any vomiting since leaving the hospital Her appetite has been good since being home, she is eating small frequent meals, trying to avoid processed foods and very spicy foods The following portions of the patient's history were reviewed and updated as appropriate: allergies, current medications, past family history, past medical history, past social history, past surgical history, problem list, and medication reconciliation was completed including current medication and post discharge medication. Review of Systems Gastrointestinal: Positive for abdominal pain and diarrhea. Musculoskeletal: Negative. Psychiatric/Behavioral: Negative. Objective Physical Exam Vitals and nursing note reviewed. Constitutional: Appearance: Normal appearance. HENT: Head: Normocephalic. Mouth/Throat: Mouth: Mucous membranes are moist. Eyes: Conjunctiva/sclera: Conjunctivae normal. Cardiovascular: Rate and Rhythm: Normal rate and regular rhythm. Pulses: Normal pulses. Heart sounds: Normal heart sounds. No murmur heard. Pulmonary: Effort: Pulmonary effort is normal. No respiratory distress. Breath sounds: Normal breath sounds. Abdominal: General: Abdomen is flat. Bowel sounds are normal. There is no distension. Palpations: Abdomen is soft. Tenderness: There is abdominal tenderness (mild tenderness in right lower quadrant). There is no guarding. Musculoskeletal: Right lower leg: No edema. Left lower leg: No edema. Lymphadenopathy: Cervical: No cervical adenopathy. Skin: General: Skin is warm and dry. Capillary Refill: Capillary refill takes less than 2 seconds. Neurological: Mental Status: She is alert and oriented to person, place, and time. Psychiatric: Thought Content: Thought content normal. Judgment: Judgment normal. Assessment/Plan Kelli was seen today for hospital follow-up. Diagnoses and all orders for this visit: Colitis due to Clostridioides difficile Reviewed her hospital records, labs etc stabilized on discharge She is eating and tolerating both food and fluids with no further episodes of vomiting She will complete her vancomycin tomorrow Still having fairly frequent loose stools and some intermittent cramps If no further vomiting in the next week she is to call and then will schedule her colonoscopy which does need to get done and she is agreeable Will have her follow up in the office with Dr Rivers following the colonoscopy She may continue the hycosamine for cramping MIRELLA Oconnell 01/27/24 1637 documented in this encounter [facility] 01-24-2024 Miscellaneous Notes Pt called requesting a refill she knows they are from the hospital but wanted to know if you could refill them she has 1 left just in case and plans to talk to you about them at her visit at the end of the week documented in this encounter [facility] 01-24-2024 Telephone encounter Note Pt called requesting a refill she knows they are from the hospital but wanted to know if you could refill them she has 1 left just in case and plans to talk to you about them at her visit at the end of the week [facility] 01-07-2024 History of Present illness Narrative Subjective Patient ID: Kelli Lake is a 48 y.o. female. Here for f/u of colitis Her pain has subsided but she has some residual nausea She is having 2-3 bms per day She is slowing resuming her diet She is finishing her antibiotics and has been tolerating them No fever or chills, some intermittent nausea Still feels a little weak still She does need a refill on her antidepressant today and states that is working very well for her The following portions of the patient's history were reviewed and updated as appropriate: allergies, current medications, past family history, past medical history, past social history, past surgical history, problem list, and medication reconciliation was completed including current medication and post discharge medication. Review of Systems Constitutional: Negative. HENT: Negative. Eyes: Negative. Respiratory: Negative. Cardiovascular: Negative. Gastrointestinal: Positive for nausea. Endocrine: Negative. Genitourinary: Negative. Allergic/Immunologic: Negative. Neurological: Negative. Hematological: Negative. Psychiatric/Behavioral: Negative. Objective Physical Exam Vitals and nursing note reviewed. Constitutional: Appearance: Normal appearance. HENT: Head: Normocephalic. Eyes: Conjunctiva/sclera: Conjunctivae normal. Cardiovascular: Rate and Rhythm: Normal rate and regular rhythm. Pulses: Normal pulses. Heart sounds: Normal heart sounds. No murmur heard. Pulmonary: Effort: Pulmonary effort is normal. Breath sounds: Normal breath sounds. Abdominal: General: Abdomen is flat. Bowel sounds are normal. There is no distension. Palpations: Abdomen is soft. There is no mass. Tenderness: There is no abdominal tenderness. There is no guarding. Musculoskeletal: Right lower leg: No edema. Left lower leg: No edema. Lymphadenopathy: Cervical: No cervical adenopathy. Skin: General: Skin is warm and dry. Capillary Refill: Capillary refill takes less than 2 seconds. Neurological: Mental Status: She is alert and oriented to person, place, and time. Psychiatric: Mood and Affect: Mood normal. Behavior: Behavior normal. Thought Content: Thought content normal. Judgment: Judgment normal. Assessment/Plan Kelli was seen today for follow-up. Diagnoses and all orders for this visit: Colitis Hypokalemia - Basic Metabolic Panel; Future Reactive depression - escitalopram (LEXAPRO) 5 mg tablet; Take 1 tablet (5 mg total) by mouth in the morning. Screen for colon cancer - Cancel: Colonoscopy; Future - Colonoscopy; Future She is improving, abdomen is soft and she is resuming her diet She is no longer having and pain and stools are formed Will recheck her bmp as her potassium was low and she is still experiencing some weakness She may use her zofran as needed for nausea Will f/u with colonscopy in one month to ensure there is no underling abnormality MIRELLA Oconnell 01/07/24 1126 documented in this encounter [facility] Evaluation note Diagnosis Colitis due to Clostridioides difficile- Primary [facility] Diagnosis Colitis- Primary Other and unspecified noninfectious gastroenteritis and colitis Hypokalemia Hypopotassemia Reactive depression Screen for colon cancer Special screening for malignant neoplasms, colon [facility]- Primary Other and unspecified noninfectious gastroenteritis and colitis Hypotension, unspecified hypotension type [facility] Diagnosis IBD (inflammatory bowel disease)- Primary Other and unspecified noninfectious gastroenteritis and colitis Colitis due to Clostridioides difficile [facility] Diagnosis IBD (inflammatory bowel disease)- Primary Other and unspecified noninfectious gastroenteritis and colitis [facility] Diagnosis 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[facility])- Primary IBD (inflammatory bowel disease) Other and unspecified noninfectious gastroenteritis and colitis Heartburn Nausea and vomiting, unspecified vomiting type Hyponatremia with extracellular fluid depletion Hyposmolality and/or hyponatremia [facility] IBD (inflammatory bowel disease) Other and unspecified noninfectious gastroenteritis and colitis Heartburn [facility] filedocumented [facility] filedocumented in [facility] filed[facility]ed in [facility] filedocumented in [facility] filedocumented [facility] filedocumented [facility] filed[facility]ed [facility] Summary Purpose Family History No Family History Records FoundNo Family History Records FoundNo Family History Records FoundNo Family History Records Found Advance Directives No Advanced Directives Records FoundNo Advanced Directives Records FoundNo Advanced Directives Records FoundNo Advanced Directives Records Found Reason for Referral Specialty Diagnoses / Procedures Referred By Mik umanzor Referred To Contact Diagnoses Screen for colon cancer Procedures Colonoscopy Colonoscopy Cande Rand, SALES RELATIONSHIP MANAGER-DRESSING MACHINE OPERATOR [address] [place] [address] Referral ID Status Reason Start Date Expiration Date V isits Requested Visits Authorized [id number] Pending Review 01/07/2024 01/06/2025 1 1 Additional Source Comments INFORMATION SOURCE (unrecogn ized section and content) DATE CREATED AUTHOR 08/29/2019 [facility] DATE CREATED AUTHOR AUTHOR'S ORGANIZ ATION 01/10/2024 [facility] DATE CREATED AUTHOR AUTHOR'S ORGANIZ ATION 06/02/2024 [facility] DATE CREATED AUTHOR AUTHOR'S ORGANIZ ATION 08/11/2024 [facility] Reason for Visit (unrecogniz ed section and content) Reason Comments Hospital Follow-up Pancreatitis, ileus c-dificil Reason Comments Follow-up ER F/U Reason Onset Date Comments Med Refill 01/24/2024 Reason Comments Follow-up From 02/02 Reason Comments Follow-up colonoscopy Reason Comments colitis Go over Lab results with her. Colitis coming back in the last 2 weeks Reason Onset Date Comments Medication Problem 05/27/2024 Reason Comments Follow-up Reason Comments GI Problem Care Teams (unrecognized sec tion and content) Copy Machine Operator Relationship Specialty Start Date End Date Geovanni Rivers DO [address] [place] [address] PCP - General Internal Medicine 01/27/24 Copy Machine Operator Relationship Specialty Start Date End Date Cande Rand APRN-FNP [address] [place] [address] PCP - General Internal Medicine 06/28/23 Copy Machine Operator Relationship Specialty Start Date End Date Cande Rand APRN-FNP [address] [place] [address] PCP - General Internal Medicine 06/28/23 Copy Machine Operator Relationship Specialty Start Date End Date Cande Rand APRN-FNP [address] [place] [address] PCP - General Internal Medicine 06/28/23 Copy Machine Operator Relationship Specialty Start Date End Date Geovanni Rivers DO [address] [place] [address] PCP - General Internal Medicine 01/27/24 Copy Machine Operator Relationship Specialty Start Date End Date Geovanni Rivers DO [address] [place] [address] PCP - General Internal Medicine 01/27/24 Copy Machine Operator Relationship Specialty Start Date End Date Geovanni Rivers DO [address] [place] [address] PCP - General Internal Medicine 01/27/24 Copy Machine Operator Relationship Specialty Start Date End Date Geovanni Rivers DO [address] [place] [address] PCP - General Internal Medicine 01/27/24 Copy Machine Operator Relationship Specialty Start Date End Date Geovanni Rivers DO [address] [place] [address] PCP - General Internal Medicine 01/27/24 Copy Machine Operator Relationship Specialty Start Date End Date Geovanni Rivers DO [address] [place] [address] PCP - General Internal Medicine 01/27/24 Copy Machine Operator Relationship Specialty Start Date End Date Geovanni Rivers DO [address] [place] [address] PCP - General Internal Medicine 01/27/24 FOR RECORDS PERTAINING TO PATIENTS WHO ARE [...] ON THE PRIMARY CLINICAL RECORDS. [facility] [employer] [facility]. provides no warranty or guarantee of the accuracy or completeness of information in this document.
[2024-11-09 14:08] LABS: Basophils Absolute Auto 0.1 10^3/uL (0.0-0.1); Eosinophils Absolute Auto 0.1 10^3/uL (0.0-0.7); Eosinophils Percent Auto 1.1 % (0.9-7.0); Hematocrit 35.9 % (36.0-48.0); Hemoglobin 11.3 g/dL (12.0-16.0); Immature Granulocytes Abs Auto 0.03 10^3/uL (0.00-0.03); Immature Granulocytes Pct Auto 0.4 % (0.0-0.5); Lymphocytes Absolute Auto 1.6 10^3/uL (1.2-3.8); Lymphocytes Percent Auto 19.9 % (20.5-60.0); Mean Corpuscular HGB Conc 31.5 g/dL (29.9-35.2); Mean Corpuscular Hemoglobin 25.7 pg (26.7-34.0); Mean Corpuscular Volume 81.6 fL (81.0-99.0); Mean Platelet Volume 10.1 fL (9.5-13.5); Monocytes Absolute Auto 0.5 10^3/uL (0.3-0.8); Monocytes Percent Auto 5.6 % (1.7-12.0); Neutrophils Absolute Auto 5.7 10^3/uL (1.4-6.5); Platelet Count 296 10^3/uL (150-450); Red Cell Distribution Width 14.2 % (11.0-15.0)
[2024-11-09 14:25] LABS: C Reactive Protein 0.85 mg/dL (<=0.50)
== END 2024-11-09 13:28 | disposition home or self-care (01) ==
LOC: LAB 13:28
PROVIDERS: PCP Internal Medicine; Visit Provider Internal Medicine
DX: K51.90 Ulcerative colitis, unspecified, without complications (principal)
CPT/HCPCS: 36415; 85025; 86140

== ENCOUNTER 2024-11-17 11:04 | Outpatient (REF) | payer OTHER, SELFPAY ==
[2024-11-20 22:08] LABS: Calprotectin, Fecal 307 ug/g (0-120)
== END 2024-11-17 11:05 | disposition home or self-care (01) ==
LOC: LAB 11:04
PROVIDERS: PCP Internal Medicine; Visit Provider Internal Medicine
DX: K51.90 Ulcerative colitis, unspecified, without complications (principal)
CPT/HCPCS: 83993

== ENCOUNTER 2024-11-24 13:17 | Inpatient (IN) | payer OTHER, SELFPAY ==
[2024-11-24 13:26] VITALS: BP 126/70; PULSE 70; TEMP 36.8; O2SAT 100; BMI 24.2
--- OUTSIDE RECORDS SUMMARY | 2024-11-24 13:48 | XMS_ITS | CCD ---
Author Organization [facility] Team Providers Care Assistant Paralegal Name Role Phone PANCHITO JUAREZ Admitting Unavailable PANCHITO JUAREZ Attending Unavailable NAILA AVALOSERIE Primary Care Unavailable PANCHITO JUAREZ Consulting Unavailable CLARK THOMAS Consulting Unavailable KAYLIN WEBSTER Consulting Unavailable CANDE RAND Referring Unavailable KUNS, CANDE Reyes Primary Care Unavailable YUHAS, GEOVANNI Jeannette Primary Care Unavailable JACKELYN WESTON Attending Unavailable YUHAS, GEOVANNI Jeannette Admitting Unavailable YUHAS, GEOVANNI Machado Attending Unavailable YUHAS, GEOVANNI L Primary Care Unavailable YUHAS, GEOVANNI L Primary Care Unavailable CLIVE RAHMAN Attending Unavailable YUHAS, GEOVANNI L Referring Unavailable YUHAS, GEOVANNI L Primary Care Unavailable KUNCANDE Arita Attending Unavailable KUNSCANDE Referring Unavailable KUNS, CANDE ESPINAL Primary Care Unavailable KUNCANDE Arita Attending Unavailable KUNS, CANDE ESPINAL Referring Unavailable KUNS, CANDE ESPINAL Primary Care Unavailable YUHAS, GEOVANNI L Attending Unavailable YUHAS, GEOVANNI L Referring Unavailable YUHAS, GEOVANNI L Primary Care Unavailable YUHAS, GEOVANNI L Attending Unavailable YUHAS, GEOVANNI L Referring Unavailable YUHAS, GEOVANNI L Primary Care Unavailable YUHAS, GEOVANNI L Attending Unavailable YUHAS, GEOVANNI L Referring Unavailable YUHAS, GEOVANNI L Primary Care Unavailable YUHAS, GEVOANNI L Attending Unavailable YUHAS, GEOVANNI L Referring Unavailable YUHAS, GEOVANNI L Primary Care Unavailable YUHAS, GEOVANNI L Attending Unavailable YUHAS, GEOVANNI L Referring Unavailable YUHAS, GEOVANNI L Primary Care Unavailable YUHAS, GEOVANNI L Attending Unavailable YUHAS, GEOVANNI L Referring Unavailable YUHAS, GEOVANNI L Primary Care Unavailable Yuhas Geovanni ESTEVEZ Primary Care Provider Cande Marques Primary Care Provider Belinda Medina MD Attending Provider Geovanni Rivers DO Primary Care Provider Belinda Medina Attending Unavailable Belinda Medina Admitting Unavailable Geovanni Rivers Primary Care Unavailable Allergies Allergy Classification Reported Allergen(s) Allergy Type Date of Onset Reaction(s) Facility (15 sources) metroNIDAZOLE; Translations: [METRONIDAZOLE] Drug Allergy Abdominal [...] Active mesalamine 400 mg delayed release oral tablet (11 sources) Aminosalicylate Start: 11-09-2024 take 3 tablets by mouth twice daily Mesalamine 400 mg capsule (with del rel tablets) Active 1200 MG PO Twice daily November 09, 2024 12:00am Start: 04-25-2024 End: 06-27-2024 take 1 capsule [...] mg suppository Indications: 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[facility]) Insert 1 suppository (12.5 mg total) into [...] (Therapy completed) escitalopram 5 mg oral tablet (17 sources) Serotonin Reuptake Inhibitor Start: 06-28-2023 End: 11-10-2024 take 1 tablet by mouth once daily Escitalopram Oxalate 5 mg tablet Discontinued 5 MG PO Daily October 18, 2023 1:00am November 10, 2024 1:22pm hyoscyamine sulfate 0.125 mg sublingual tablet (7 [...] 12/25/2023 01/27/2024 Discontinued (Therapy completed) peg 3350-sod sulf,rgmu-xbe-qmt 178.7-7.3-0.5 gram recon soln (1 source) Start: 02-27-2024 End: 03-08-2024 peg 3350-sod sulf,klxr-zqu-eps 178.7-7.3-0.5 gram recon soln Indications: Colitis due to Clostridioides difficile Take one container twice as directed by scheduled instructions 2 each 02/27/2024 03/08/2024 Discontinued penicillin v potassium 250 mg oral tablet (2 sources) Start: 10-18-2023 End: 11-09-2024 Penicillin V Potassium 250 mg tablet Discontinued 500 MG PO Every 6 hours 40 7 October 18, 2023 1:00am November 09, 2024 11:57am polyethylene glycol 3350 182630 mg / potassium chloride 2970 mg / sodium bicarbonate 6740 mg / sodium chloride 5860 mg / sodium sulfate 79178 mg powder for oral solution (1 source) [...] 0 Chronic Regional enteritis and ulcerative colitis (4 sources) 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; Translations: [...] Test Name Value Interpretation Reference Range Facility Hoang 11-21-2024 ---- Specimen: [id number] Received: 11/21/24 Status: LINO Juarez Num: [id number] Spec Type: Surgical Subm Dr: Belinda Medina MD Tissues: A Small Intestine - Biopsy/Polyp (SMALL BOWEL BX) B Colon Biopsy (RIGHT COLON BX) C Colon Biopsy (TRANSVERSE COLON BX) D Colon Biopsy (DESCENDING COLON BX) E Colon Biopsy (SIGMOID COLON BX) F Colon Biopsy (RECTAL BX) Procedures: /Bri, Gross/Micro L4/6 Age/ Patient Sex Location Account Attending Physician Kelli Lake 49/F [id number] Belinda Medina MD SPEC NUM: [id number] RECD: 11/21/24 STATUS: LINO JUAREZ NUM: [id number] CHANNING: 11/21/[address] [facility] [address]: Belinda Medina MD ENTERED: 11/21/24 [facility] DR: SARA TYPE: Surgical DEPT: S ENTERED BY: [id number] RECV BY: [id number] ORDERED: HE/15, Gross/Micro L4/6 ORDERED: HE/15, Gross/Micro L4/6 Pathological Diagnosis A. Small bowel biopsy:. ? Fragments of small intestinal mucosa, no diagnostic abnormality ? No evidence of celiac disease is identified B. Right colon biopsy: ? Fragments of colonic mucosa, no diagnostic abnormality ? No acute or chronic inflammatory changes are identified ? No dysplasia or neoplasia are identified C. Transverse colon biopsy: ? Fragments of colonic mucosa, no diagnostic abnormality ? No acute or chronic inflammatory changes are identified ? No dysplasia or neoplasia are identified D. Descending colon biopsy: ? Chronic active colitis consistent with active inflammatory bowel disease, clinically ulcerative colitis, see comment ? No dysplasia or neoplasia are identified E. Sigmoid colon biopsy: Specimen: [id number] Received: 11/21/24 Status: LINO Juarez Num: [id number] Spec Type: Surgical Subm Dr: Belinda Medina MD Tissues: A Small Intestine - Biopsy/Polyp (SMALL BOWEL BX) B Colon Biopsy (RIGHT COLON BX) C Colon Biopsy (TRANSVERSE COLON BX) D Colon Biopsy (DESCENDING COLON BX) E Colon Biopsy (SIGMOID COLON BX) F Colon Biopsy (RECTAL BX) Procedures: /, Gross/Micro /6 Patient: Kelli Lake [id number] (Continued) Specimen: [id number] Received: 11/21/24 (Continued) Pathological Diagnosis (Continued) Signed (signature on file) Rubin Strickland MD 11/22/24 1400 Specimen: [id number] Received: 11/21/24 Status: LINO Juarez Num: [id number] Spec Type: Surgical Subm Dr: Belinda Medina MD Tissues: A Small Intestine - Biopsy/Polyp (SMALL BOWEL BX) B Colon Biopsy (RIGHT COLON BX) C Colon Biopsy (TRANSVERSE COLON BX) D Colon Biopsy (DESCENDING COLON BX) E Colon Biopsy (SIGMOID COLON BX) F Colon Biopsy (RECTAL BX) Procedures: /, Gross/Micro L4/6 Patient: VenkateshgloriaKelli Jeannette [id number] (Continued) Specimen: [id number] Received: 11/21/24 (Continued) Pathological Diagnosis (Continued) ? Chronic active colitis consistent with active inflammatory bowel disease, clinically ulcerative colitis see comment ? No dysplasia or neoplasia are identified F. Rectal biopsy: ? Chronic active colitis/proctitis with ulceration consistent with active inflammatory bowel disease, clinically ulcerative colitis see comment ? No dysplasia or neoplasia are identified Comment: In specimens D , E and F, in some fragments, the chronic inflammatory cells appear to extend beyond the fragments of muscularis mucosa. No granuloma is identified. The overall findings are consistent with active inflammatory bowel disease, clinically ulcerative colitis. Clinical Information Ulcerative colitis Gross Description Part A is received in formalin labeled with the patients name, date of , and small bowel BX are 2 edmondson-forrester, focally erythematous, friable, 0.3 and 0.4 cm in greatest dimension tissue bits. The specimen is entirely submitted in a single cassette. (1, ns, [id number]) JG Part B is received in formalin labeled with the patients name, date of , and right colon BX are 2 edmondson-forrester, focally erythematous, friable, 0.4 and 0.5 cm in greatest dimension tissue strips. (more content not included)... Normal [facility] CBC AND AUTO DIFFon 05-31-20 24 ABSOLUTE BASOPHIL 0.0 X10E9/L Normal 0.0-0.2 [facility] Comment on above: Performed By: #### C ROMERO, CMP #### [facility] ([id number]) [address] [place] [address] 44468 ABSOLUTE NEUTROPHIL 8.6 X10E9/L High 1.5-6.6 [facility] Comment on above: Performed By: #### C ROMERO, CMP #### [facility] ([id number]) [address] [place] [address] 43321 Basophils/100 WBC (Bld) 0.2 % Normal [facility] Comment on above: Performed By: #### C ROMERO, CMP #### [facility] ([id number]) [address] [place] [address] 11257 Eosinophils (Bld) [#/Vol] 0.0 10*3/uL Normal 0.0-0.4 [facility] Comment on above: Performed By: #### C BCA, CMP #### [facility] ([id number]) [address] [place] [address] 20682 Eosinophils/100 WBC (Bld) 0.1 % Normal [facility] Comment on above: Performed By: #### C BCA, CMP #### [facility] ([id number]) [address] [place] [address] 97943 Erythrocyte distribution width (RBC) [Ratio] 15.5 % High 11.5-15.0 [facility] Comment on above: Performed By: #### C BCA, CMP #### [facility] ([id number]) [address] [place] [address] 73346 Hematocrit (Bld) [Volume fraction] 35.2 % Normal 35-47 [facility] Comment on above: Performed By: #### C BCA, CMP #### [facility] ([id number]) [address] [place] [address] 84292 Hemoglobin (Bld) [Mass/Vol] 11.3 g/dL Low 11.7-15.5 [facility] Comment on above: Performed By: #### C BCA, CMP #### [facility] ([id number]) [address] [place] [address] 68810 Lymphocytes (Bld) [#/Vol] 1.3 10*3/uL Normal 1.0-3.5 [facility] Comment on above: Performed By: #### C BCA, CMP #### [facility] ([id number]) [address] [place] [address] 48267 Lymphocytes/100 WBC (Bld) 11.4 % Normal [facility] Comment on above: Performed By: #### C BCA, CMP #### [facility] ([id number]) [address] [place] [address] 62263 MCH (RBC) [Entitic mass] 24.4 pg Low 27-34 [facility] Comment on above: Performed By: #### C BCA, CMP #### [facility] ([id number]) [address] [place] [address] 00700 MCHC (RBC) [Mass/Vol] 32.1 g/dL Normal 32-36 [facility] Comment on above: Performed By: #### C BCA, CMP #### [facility] ([id number]) [address] [place] [address] 71333 MCV (RBC) [Entitic vol] 76 fL Low 80-100 [facility] Comment on above: Performed By: #### C ROMERO, CMP #### [facility] ([id number]) [address] [place] [address] 09316 Monocytes (Bld) [#/Vol] 1.1 10*3/uL High 0-0.9 [facility] Comment on above: Performed By: #### C ROMERO, CMP #### [facility] ([id number]) [address] [place] [address] 18094 Monocytes/100 WBC (Bld) 10.2 % Normal [facility] Comment on above: Performed By: #### C ROMERO, CMP #### [facility] ([id number]) [address] [place] [address] 92748 Neutrophils/100 WBC (Bld) 78.1 % Normal [facility] Comment on above: Performed By: #### C ROMERO, CMP #### [facility] ([id number]) [address] [place] [address] 16174 Platelet mean volume (Bld) [Entitic vol] 7.7 fL Normal 7-12 [facility] Comment on above: Performed By: #### C ROMERO, CMP #### [facility] ([id number]) [address] [place] [address] 87127 Platelets (Bld) [#/Vol] 300 10*3/uL Normal 150-450 [facility] Comment on above: Performed By: #### C BCA, CMP #### [facility] ([id number]) [address] [place] [address] 78174 RBC COUNT 4.62 X10E12/L Normal 3.80-5.20 [facility] Comment on above: Performed By: #### C BCA, CMP #### [facility] ([id number]) [address] [place] [address] 22478 WBC (Bld) [#/Vol] 11.0 10*3/uL Normal 4.0-11.0 [facility] Comment on above: Performed By: #### C BCA, CMP #### [facility] ([id number]) [address] [place] [address] 93453 COMPREHENSIVE METABOLIC PANE Hoang 05-31-2024 Albumin [Mass/Vol] 3.9 g/dL Normal 3.2-5.3 [facility] Comment on above: Performed By: #### C BCA, CMP #### [facility] ([id number]) [address] [place] [address] 20962 ALP [Catalytic activity/Vol] 44 U/L Normal 39-130 [facility] Comment on above: Performed By: #### C BCA, CMP #### [facility] ([id number]) [address] [place] [address] 60765 ALT [Catalytic activity/Vol] 13 U/L Normal 0-31 [facility] Comment on above: Performed By: #### C BCA, CMP #### [facility] ([id number]) [address] [place] [address] 61273 Anion gap [Moles/Vol] 7 mmol/L Normal 5-15 [facility] Comment on above: Performed By: #### C BCA, CMP #### [facility] ([id number]) [address] [place] [address] 84238 AST [Catalytic activity/Vol] 15 U/L Normal 0-41 [facility] Comment on above: Performed By: #### C BCA, CMP #### [facility] ([id number]) [address] [place] [address] 26325 Bilirubin [Mass/Vol] 1.1 mg/dL Normal 0.3-1.2 [facility] Comment on above: Performed By: #### C BCA, CMP #### [facility] ([id number]) [address] [place] [address] 17823 Calcium [Mass/Vol] 8.5 mg/dL Normal 8.5-10.5 [facility] Comment on above: Performed By: #### C BCA, CMP #### [facility] ([id number]) [address] [place] [address] 93724 Chloride [Moles/Vol] 93 mmol/L Low 98-109 [facility] Comment on above: Performed By: #### C BCA, CMP #### [facility] ([id number]) [address] [place] [address] 23301 CO2 [Moles/Vol] 28 mmol/L Normal 22-32 [facility] Comment on above: Performed By: #### C BCA, CMP #### [facility] ([id number]) [address] [place] [address] 29456 Creatinine [Mass/Vol] 0.84 mg/dL Normal 0.40-1.00 [facility] Comment on above: Result Comment: METH OD TRACEABLE TO IDMS STANDARD Performed By: #### C ROMERO, CMP #### [facility] ([id number]) [address] [place] [address] 89000 GFR/1.73 sq M.predicted among non-blacks MDRD (S/P/Bld) [Vol rate/Area] 86 mL/min/{1.73_m2} Normal >59 [facility] Comment on above: Result Comment: Reported eGFR is based on the CKD-EPI 2020 equation that does not use a race coefficient. Performed By: #### C BCA, CMP #### [facility] ([id number]) [address] [place] [address] 37513 Glucose [Mass/Vol] 110 mg/dL High 65-99 [facility] Comment on above: Performed By: #### C BCA, CMP #### [facility] ([id number]) [address] [place] [address] 30619 Potassium [Moles/Vol] 3.1 mmol/L Low 3.5-5.0 [facility] Comment on above: Performed By: #### C BCA, CMP #### [facility] ([id number]) [address] [place] [address] 09914 Protein [Mass/Vol] 7.2 g/dL Normal 6.0-8.0 [facility] Comment on above: Performed By: #### C BCA, CMP #### [facility] ([id number]) [address] [place] [address] 00099 Sodium [Moles/Vol] 128 mmol/L Low 134-146 [facility] Comment on above: Performed By: #### C BCA, CMP #### [facility] ([id number]) [address] [place] [address] 10109 Urea nitrogen [Mass/Vol] 19 mg/dL Normal 5-23 [facility] Comment on above: Performed By: #### C BCA, CMP #### [facility] ([id number]) [address] [place] [address] ABDOMEN AND PELVIS WO CON Ton [...] Carlos Escobedo on 05/31/2024 10:00 AM Normal [facility] Surgical Pathologyon 17- 024 Surgical Pathology Normal [facility] Comment on above: Result Comment: [facility] [employer] [facility] [address] [place] [address] Surgical Pathology Consultation Patient Name:KELLI LAKE:1975 (Age: 48)Gender:FTaken:4Reported:4Physician(s):Geovanni Rivers MD ([phone])Copy To: Rec. #:[id number]: #[id number] Final Pathologic Diagnosis 1. Transverse colon biopsy: [...] Out ao/4Alian Camara MD Interpretation performed at [facility], [address] [place] [address], License number: [id number]. Clinical History Colitis. Gross Description 1. Received in formalin labeled ALEKSANDRA, #1: Transverse BX are 3 edmondson bits/strips of soft tissue, ranging from 0.5-0.9 cm in greatest dimension. Filtered and submitted in a single cassette. (1, ns, [id number], m7) MG 2. Received in formalin labeled ALEKSANDRA, #2: Sigmoid are 5 edmondson bits of soft tissue, ranging from 0.2-0.3 cm in greatest dimension. Filtered and submitted in a single cassette. (1, ns, [id number], m7) MG mj/03/08/2024O Specimen(s) Received 1: Transverse colon biopsies 2: Sigmoid colon biopsy Fee Codes(s): 1; 13800 2; 73019 CBC AND AUTO DIFFon 02-09- 24 ABSOLUTE BASOPHIL 0.0 X10E9/L Normal 0.0-0.2 [facility] Comment on above: Performed By: #### Marguerite JASSO, 62435-1, CMP, 3040-3 #### [facility] ([id number]) [address] [place] [address] 64660 ABSOLUTE NEUTROPHIL 11.5 X10E9/L High 1.5-6.6 [facility] Comment on above: Performed By: #### Marguerite JASSO, 77667-8, CMP, 0-3 #### [facility] ([id number]) [address] [place] [address] 69183 Basophils/100 WBC (Bld) 0.2 % Normal [facility] Comment on above: Performed By: #### Marguerite JASSO, 03670-2, CMP, 3040-3 #### [facility] ([id number]) [address] [place] [address] 81311 Eosinophils (Bld) [#/Vol] 0.0 10*3/uL Normal 0.0-0.4 [facility] Comment on above: Performed By: #### Marguerite JASSO, 78108-2, CMP, 0-3 #### [facility] ([id number]) [address] [place] [address] 67491 Eosinophils/100 WBC (Bld) 0.1 % Normal [facility] Comment on above: Performed By: #### Marguerite JASSO, 66744-4, CMP, 3040-3 #### [facility] ([id number]) [address] [place] [address] 90041 Erythrocyte distribution width (RBC) [Ratio] 19.1 % High 11.5-15.0 [facility] Comment on above: Performed By: #### Marguerite JASSO, 74579-9, CMP, 3040-3 #### [facility] ([id number]) [address] [place] [address] 30894 Hematocrit (Bld) [Volume fraction] 36.4 % Normal 35-47 [facility] Comment on above: Performed By: #### Marguerite JASSO, 17325-4, CMP, 3040-3 #### [facility] ([id number]) [address] [place] [address] 90521 Hemoglobin (Bld) [Mass/Vol] 12.2 g/dL Normal 11.7-15.5 [facility] Comment on above: Performed By: #### Marguerite JASSO, 14199-3, CMP, 0-3 #### [facility] ([id number]) [address] [place] [address] 87670 Lymphocytes (Bld) [#/Vol] 0.7 10*3/uL Low 1.0-3.5 [facility] Comment on above: Performed By: #### Marguerite JASSO, 71452-5, CMP, 3040-3 #### [facility] ([id number]) [address] [place] [address] 45043 Lymphocytes/100 WBC (Bld) 5.7 % Normal [facility] Comment on above: Performed By: #### Marguerite JASSO, 04182-5, CMP, 3040-3 #### [facility] ([id number]) [address] [place] [address] 81769 MCH (RBC) [Entitic mass] 24.9 pg Low 27-34 [facility] Comment on above: Performed By: #### Marguerite JASSO, 61686-1, CMP, 3040-3 #### [facility] ([id number]) [address] [place] [address] 75274 MCHC (RBC) [Mass/Vol] 33.5 g/dL Normal 32-36 [facility] Comment on above: Performed By: #### Marguerite JASSO, 74744-4, CMP, 3040-3 #### [facility] ([id number]) [address] [place] [address] 55225 MCV (RBC) [Entitic vol] 74 fL Low 80-100 [facility] Comment on above: Performed By: #### Marguerite JASSO, 92302-3, CMP, 3040-3 #### [facility] ([id number]) [address] [place] [address] 92760 Monocytes (Bld) [#/Vol] 0.4 10*3/uL Normal 0-0.9 [facility] Comment on above: Performed By: #### Marguerite BCA, 50054-5, CMP, 3040-3 #### [facility] ([id number]) [address] [place] [address] 97194 Monocytes/100 WBC (Bld) 3.2 % Normal [facility] Comment on above: Performed By: #### Marguerite BCA, 31904-8, CMP, 3040-3 #### [facility] ([id number]) [address] [place] [address] 02529 Neutrophils/100 WBC (Bld) 90.8 % Normal [facility] Comment on above: Performed By: #### Marguerite BCA, 90588-4, CMP, 3040-3 #### [facility] ([id number]) [address] [place] [address] 87971 Platelet mean volume (Bld) [Entitic vol] 8.1 fL Normal 7-12 [facility] Comment on above: Performed By: #### C BCA, 56443-5, CMP, 3040-3 #### [facility] ([id number]) [address] [place] [address] 81027 Platelets (Bld) [#/Vol] 435 10*3/uL Normal 150-450 [facility] Comment on above: Performed By: #### C BCA, 26800-6, CMP, 3040-3 #### [facility] ([id number]) [address] [place] [address] 64568 RBC COUNT 4.90 X10E12/L Normal 3.80-5.20 [facility] Comment on above: Performed By: #### Marguerite BCA, 94328-7, CMP, 3040-3 #### [facility] ([id number]) [address] [place] [address] 07682 WBC (Bld) [#/Vol] 12.6 10*3/uL High 4.0-11.0 [facility] Comment on above: Performed By: #### C BCA, 33764-9, CMP, 3040-3 #### [facility] ([id number]) [address] [place] [address] 61508 COMPREHENSIVE METABOLIC PANE Hoang 02-10-2024 Albumin [Mass/Vol] 4.1 g/dL Normal 3.2-5.3 [facility] Comment on above: Performed By: #### Marguerite BCA, 88085-0, CMP, 3040-3 #### [facility] ([id number]) [address] [place] [address] [id number] ALP [Catalytic activity/Vol] 53 U/L Normal 39-130 [facility] Comment on above: Performed By: #### C BCA, 57691-9, CMP, 3040-3 #### [facility] ([id number]) [address] [place] [address] 14799 ALT [Catalytic activity/Vol] 10 U/L Normal 0-31 [facility] Comment on above: Performed By: #### C BCA, 33456-6, CMP, 3040-3 #### [facility] ([id number]) [address] [place] [address] 83820 Anion gap [Moles/Vol] 8 mmol/L Normal 5-15 [facility] Comment on above: Performed By: #### C BCA, 80364-5, CMP, 3040-3 #### [facility] ([id number]) [address] [place] [address] 67731 AST [Catalytic activity/Vol] 17 U/L Normal 0-41 [facility] Comment on above: Performed By: #### Marguerite BCA, 60875-9, CMP, 3040-3 #### [facility] ([id number]) [address] [place] [address] 21539 Bilirubin [Mass/Vol] 1.0 mg/dL Normal 0.3-1.2 [facility] Comment on above: Performed By: #### Marguerite BCA, 36659-5, CMP, 3040-3 #### [facility] ([id number]) [address] [place] [address] 38959 Calcium [Mass/Vol] 8.5 mg/dL Normal 8.5-10.5 [facility] Comment on above: Performed By: #### C BCA, 39996-5, CMP, 3040-3 #### [facility] ([id number]) [address] [place] [address] 19772 Chloride [Moles/Vol] 99 mmol/L Normal 98-109 [facility] Comment on above: Performed By: #### Marguerite BCA, 34828-8, CMP, 3040-3 #### [facility] ([id number]) [address] [place] [address] 66490 CO2 [Moles/Vol] 24 mmol/L Normal 22-32 [facility] Comment on above: Performed By: #### C BCA, 64453-8, CMP, 3040-3 #### [facility] ([id number]) [address] [place] [address] 95522 Creatinine [Mass/Vol] 0.71 mg/dL Normal 0.40-1.00 [facility] Comment on above: Result Comment: METH OD TRACEABLE TO IDMS STANDARD Performed By: #### C ROMERO, 86850-5, CMP, 0-3 #### [facility] ([id number]) [address] [place] [address] 30894 eGFR (CKD-EPI) NON-RACE DEPENDENT >90 Normal >59 [facility] Comment on above: Result Comment: Reported eGFR is based on the CKD-EPI 2020 equation that does not use a race coefficient. Performed By: #### C BCA, 59776-6, CMP, 3040-3 #### [facility] ([id number]) [address] [place] [address] 15280 Glucose [Mass/Vol] 114 mg/dL High 65-99 [facility] Comment on above: Performed By: #### C BCA, 56575-9, CMP, 0-3 #### [facility] ([id number]) [address] [place] [address] 29795 Potassium [Moles/Vol] 3.7 mmol/L Normal 3.5-5.0 [facility] Comment on above: Performed By: #### C BCA, 19398-6, CMP, 3040-3 #### [facility] ([id number]) [address] [place] [address] 74892 Protein [Mass/Vol] 7.6 g/dL Normal 6.0-8.0 [facility] Comment on above: Performed By: #### C BCA, 73040-9, CMP, 3040-3 #### [facility] ([id number]) [address] [place] [address] 33903 Sodium [Moles/Vol] 131 mmol/L Low 134-146 [facility] Comment on above: Performed By: #### C ROMERO, 20457-0, CMP, 3040-3 #### [facility] ([id number]) [address] [place] [address] 61407 Urea nitrogen [Mass/Vol] 11 mg/dL Normal 5-23 [facility] Comment on above: Performed By: #### C ROMERO, 56169-0, CMP, 3040-3 #### [facility] ([id number]) [address] [place] [address] 96228 HCG ( test) Ql (U)o n 02-10-2024 Beta HCG ( test) Ql (U) Negative Normal NEG [facility] Comment on above: Performed By: #### 2 106-3 #### [facility] ([id number]) [address] [place] [address] 27849 LIPASEon 02-10-2024 Lipase [Catalytic activity/Vol] 42 U/L High 17-40 [facility] Comment on above: Performed By: #### C ROMERO, 39655-7, CMP, 3040-3 #### [facility] ([id number]) [address] [place] [address] 93080 Lactate (P caroline) [Moles/Vol]o n 02-10-2024 LACTATE W/REFLEX 1.1 mmol/L Normal 0.4-2.0 [facility] Comment on above: Result Comment: Result did not trigger repeat Lactate, re-order if needed. Performed By: #### C BCA, 69379-7, CMP, 3040-3 #### [facility] ([id number]) [address] [place] [address], [place] [address] URN MACROSCOPIC NURon 2023 BILIRUBIN MEÑO Small Abnormal NEG [facility] Comment on above: Performed By: #### N UM #### [facility] ([id number]) [address] [place] [address] 23235 BLOOD/HGB MEÑO Negative Normal NEG [facility] Comment on above: Performed By: #### N UM #### [facility] ([id number]) [address] [place] [address] 77691 GLUCOSE MEÑO Negative Normal NEG [facility] Comment on above: Performed By: #### N UM #### [facility] ([id number]) [address] [place] [address] 74204 KETONES MEÑO 80 mg/dL Abnormal NEG [facility] Comment on above: Performed By: #### N UM #### [facility] ([id number]) [address] [place] [address] [place] [address] LEUKOCYTE ESTERASE MEÑO Negative Normal NEG [facility] Comment on above: Performed By: #### N UM #### [facility] ([id number]) [address] [place] [address] [place] [address] NITRITE MEÑO Negative Normal NEG [facility] Comment on above: Performed By: #### N UM #### [facility] ([id number]) [address] [place] [address] [place] [address] PH MEÑO 6.0 Normal 5.0-8.5 [facility] Comment on above: Performed By: #### N UM #### [facility] ([id number]) [address] [place] [address] 98036 PROTEIN MEÑO 30 mg/dL Abnormal NEG [facility] Comment on above: Performed By: #### N UM #### [facility] ([id number]) [address] [place] [address] [place] [address] SPECIFIC GRAVITY MEÑO 1.025 Normal 1.003-1.035 [facility] Comment on above: Performed By: #### N UM #### [facility] ([id number]) [address] [place] [address], [place] [address] UROBILINOGEN MEÑO 0.2 eu/dL Normal <1.1 [facility] Comment on above: Performed By: #### N UM #### [facility] ([id number]) [address] [place] [address], [place] [address] Multiple labsOrdered By: Stacia Villa on 01-16-2024 [facility] BASIC METABOLIC PANLon 01-06 Anion gap [Moles/Vol] 8 mmol/L Normal 5-15 [facility] Comment on above: Performed By: #### B MP #### [facility] ([id number]) [address], [address] [place] [address] Calcium [Mass/Vol] 8.6 mg/dL Normal 8.5-10.5 [facility] Comment on above: Performed By: #### B MP #### [facility] ([id number]) [address], [address] [place] [address] Chloride [Moles/Vol] 105 mmol/L Normal 98-109 [facility] Comment on above: Performed By: #### B MP #### [facility] ([id number]) [address], [address] [place] [address] CO2 [Moles/Vol] 25 mmol/L Normal 22-32 [facility] Comment on above: Performed By: #### B MP #### [facility] ([id number]) [address], [address] [place] [address] Creatinine [Mass/Vol] 0.74 mg/dL Normal 0.40-1.00 [facility] Comment on above: Result Comment: METH OD TRACEABLE TO IDMS STANDARD Performed By: #### B MP #### [facility] ([id number]) [address], [address] [place] [address] eGFR (CKD-EPI) NON-RACE DEPENDENT >90 Normal >59 [facility] Comment on above: Result Comment: Reported eGFR is based on the CKD-EPI 2020 equation that does not use a race coefficient. Performed By: #### B MP #### [facility] ([id number]) [address], [address] [place] [address] Glucose [Mass/Vol] 87 mg/dL Normal 65-99 [facility] Comment on above: Performed By: #### B MP #### [facility] ([id number]) [address], [address] [place] [address] Potassium [Moles/Vol] 3.9 mmol/L Normal 3.5-5.0 [facility] Comment on above: Performed By: #### B MP #### [facility] ([id number]) [address], [address] [place] [address] Sodium [Moles/Vol] 138 mmol/L Normal 134-146 [facility] Comment on above: Performed By: #### B MP #### [facility] ([id number]) [address] [address] [place] [address] Urea nitrogen [Mass/Vol] 5 mg/dL Normal 5-23 [facility] Comment on above: Performed By: #### B MP #### [facility] ([id number]) [address], [address] [place] [address] Basic Metabolic Panelon 05- Anion gap [Moles/Vol] 8 mmol/L 5 - 15 mmol/L [facility] Calcium [Mass/Vol] 8.6 mg/dL 8.5 - 10. 5 mg/dL [facility] Chloride [Moles/Vol] 105 mmol/L 98 - 109 mmol/L [facility] CO2 [Moles/Vol] 25 mmol/L 22 - 32 mmol/L [facility] Creatinine [Mass/Vol] 0.74 mg/dL 0.40 - 1.00 mg/dL [facility] Comment on above: METHOD TRACEABLE TO [facility] STANDARD eGFR (CKD-EPI)non-race dependent - PINF [facility] Comment on above: Reported eGFR is based on the CKD-EPI 2020 equation that does not use a race coefficient. Glucose [Mass/Vol] 87 mg/dL 65 - 99 mg/dL [facility] Potassium [Moles/Vol] 3.9 mmol/L 3.5 - 5.0 mmol/L [facility] Sodium [Moles/Vol] 138 mmol/L 134 - 146 mmol/L [facility] Urea nitrogen [Mass/Vol] 5 mg/dL 5 - 23 mg/dL [facility] INFLUENZA A AND B [facility]on 08[facility] BELOW Normal [facility] Comment on above: Result Comment: Nega tive for Flu A protein angiten. Infection due to Flu A cannot be ruled out. Flu A angiten in the sample may be below the detection limit of the test. Performed By: #### I NFLUAB #### [facility] [address] [place] [address] Jessieyamile Brannonen INFLUBNEGH SEE BELOW Normal [facility] Comment on above: Result Comment: Nega tive for Flu B protein antigen. Infection due to Flu B cannot be ruled out. Flu B antigen in the sample may be below the detection limit of the test. Performed By: #### I NFLUAB #### [facility] [address] [place] [address] [facility] AG Negative Normal NEGATIVE SEE COMMENT [facility] Comment on above: Performed By: #### I NFLUAB #### [facility] [address] [place] [address] Jessie Oksana INFLUENZA B AG Negative Normal NEGATIVE SEE COMMENT [facility] Comment on above: Performed By: #### I NFLUAB #### [facility] [address] [place] [address] Jessie Gandhi INTERNAL CONTROLS Within Normal Limits Normal Wi thin Normal Limits [facility] Comment on above: Performed By: #### I NFLUAB #### [facility] [address] [address] Jessie Gandhi Vital Signs Date Time Vital Sign Value Performing Clinician Facility 11-21-2024 11:05-0400 Diastolic blood pressure 77 mm[Hg] Geovanni Berniehas DO Work Phone: [facility] 11-21-2024 11:05-0400 Heart rate 62 /min Geovanni Yuhas DO Work Phone: [facility] 11-21-2024 11:05-0400 Respiratory rate 16 /min Geovanni Yuhas DO Work Phone: [facility] 11-21-2024 11:05-0400 SaO2% (BldA) [Mass fraction] 100 % Geovanni Yuhas DO Work Phone: [facility] 11-21-2024 11:05-0400 Systolic blood pressure 117 mm[Hg] Geovanni Yuhas DO Work Phone: [facility] 11-21-2024 08:21-0400 Body height 154.94 cm Geovanni Yuhas DO Work Phone: [facility] 11-21-2024 08:21-0400 Body weight 61.23 kg Geovanni Yuhas DO Work Phone: [facility] 06-27-2024 16:39-0500 Diastolic blood pressure 70 mm[Hg] Geovanni Yuhas DO Work Phone: [facility] [facility] 06-27-2024 16:39-0500 Systolic blood pressure 96 mm[Hg] [facility] 06-27-2024 15:58-0500 Body height 154.9 cm Geovanni Yuhas DO Work Phone: [facility] [employer] [facility] 06-27-2024 15:58-0500 Body mass index (BMI) [Ratio] 24.75 kg/m2 Geovanni Yuhas DO Work Phone: [facility] [employer] [facility] 06-27-2024 15:58-0500 Body temperature 98.1 [degF] Geovanni Gavirias DO Work Phone: [facility] [employer] [facility] 06-27-2024 15:58-0500 Body weight 59.42 kg Geovanni Gavirias DO Work Phone: [facility] [employer] [facility] 06-27-2024 15:58-0500 Heart rate 72 /min Geovanni Gavirias DO Work Phone: [facility] [facility] 06-27-2024 15:58-0500 Respiratory rate 18 /min Geovanni Rivers DO Work Phone: [facility] 06-27-2024 15:58-0500 SaO2% (BldA) [Mass fraction] 98 % Geovanni Rivers DO Work Phone: [facility] 05-31-2024 16:37-0400 Body height 154.9 cm Geovanni Rivers DO Work Phone: [facility] 05-31-2024 16:37-0400 Body mass index (BMI) [Ratio] 23.83 kg/m2 Geovanni Rivers DO Work Phone: [facility] 05-31-2024 16:37-0400 Body temperature 98.1 [degF] Geovanni Rivers DO Work Phone: [facility] 05-31-2024 16:37-0400 Body weight 57.2 kg Geovanni Rivers DO Work Phone: [facility] 05-31-2024 16:37-0400 Diastolic blood pressure 60 mm[Hg] Geovanni Gavirias DO Work Phone: [facility] 05-31-2024 16:37-0400 Heart rate 79 /min Geovanni Rivers DO Work Phone: [facility] 05-31-2024 16:37-0400 SaO2% (BldA) [Mass fraction] 97 % Geovanni Gavirias DO Work Phone: [facility] [employer] [facility] 05-31-2024 16:37-0400 Systolic blood pressure 120 mm[Hg] Geovanni Gavirias DO Work Phone: [facility] 04-19-2024 14:37-0400 Diastolic blood pressure 48 mm[Hg] Geovanni Gibbshas DO Work Phone: [facility] 04-19-2024 14:37-0400 Systolic blood pressure 100 mm[Hg] Geovanni Gavirias DO Work Phone: [facility] 04-19-2024 14:34-0400 Body height 154.9 cm Geovanni Gavirias DO Work Phone: [facility] 04-19-2024 14:34-0400 Body mass index (BMI) [Ratio] 25.47 kg/m2 Geovanni Gavirias DO Work Phone: [facility] 04-19-2024 14:34-0400 Body temperature 97.81 [degF] Geovanni Gavirias DO Work Phone: [facility] 04-19-2024 14:34-0400 Body weight 61.15 kg Geovanni Gavirias DO Work Phone: [facility] [employer] [facility] 04-19-2024 14:34-0400 Heart rate 82 /min Geovanni Gavirias DO Work Phone: [facility] 04-19-2024 14:34-0400 Respiratory rate 18 /min Geovanni Gavirias DO Work Phone: [facility] 04-19-2024 14:34-0400 SaO2% (BldA) [Mass fraction] 99 % Geovanni Gavirias DO Work Phone: [facility] 03-16-2024 11:17-0400 Body height 154.9 cm Geovanni Gavirias DO Work Phone: [facility] 03-16-2024 11:17-0400 Body mass index (BMI) [Ratio] 24.96 kg/m2 Geovanni Rivers DO Work Phone: [facility] 03-16-2024 11:17-0400 Body temperature 98.2 [degF] Geovanni Gavirias DO Work Phone: [facility] 03-16-2024 11:17-0400 Body weight 59.92 kg Geovanni Gavirias DO Work Phone: [facility] 03-16-2024 11:17-0400 Diastolic blood pressure 80 mm[Hg] Geovanni Rivers DO Work Phone: [facility] 03-16-2024 11:17-0400 Heart rate 71 /min Geovanni Rivers DO Work Phone: [facility] 03-16-2024 11:17-0400 SaO2% (BldA) [Mass fraction] 98 % Geovanni Rivers DO Work Phone: [facility] 03-16-2024 11:17-0400 Systolic blood pressure 100 mm[Hg] Geovanni Rivers DO Work Phone: [facility] 03-07-2024 12:07-0400 Body height 156.8 cm Pmh 1 [facility] 03-07-2024 12:07-0400 Body mass index (BMI) [Ratio] 24.34 kg/m2 Pmh 1 [facility] 03-07-2024 12:07-0400 Body weight 59.88 kg Pmh 1 [facility] 02-08-2024 10:25-0400 Diastolic blood pressure 68 mm[Hg] Geovanni Rivers DO Work Phone: [facility] 02-08-2024 10:25-0400 Systolic blood pressure 94 mm[Hg] Geovanni Gavirias DO Work Phone: [facility] 02-08-2024 09:35-0400 Body height 154.9 cm Geovanni Rivers DO Work Phone: [facility] 02-08-2024 09:35-0400 Body mass index (BMI) [Ratio] 25.07 kg/m2 Geovanni Rivers DO Work Phone: [facility] 02-08-2024 09:35-0400 Body temperature 98.1 [degF] Geovanni Rivers DO Work Phone: [facility] 02-08-2024 09:35-0400 Body weight 60.19 kg Geovanni Rivers DO Work Phone: [facility] 02-08-2024 09:35-0400 Heart rate 78 /min Geovanni Rivers DO Work Phone: [facility] 02-08-2024 09:35-0400 Respiratory rate 18 /min Geovanni Rivers DO Work Phone: [facility] 02-08-2024 09:35-0400 SaO2% (BldA) [Mass fraction] 96 % Geovanni Rivers DO Work Phone: [facility] 01-27-2024 14:41-0400 Body height 154.9 cm Cande Rand APRN-CTE TEACHER Work Phone: [facility] 01-27-2024 14:41-0400 Body mass index (BMI) [Ratio] 26.07 kg/m2 Cande Rand BEAN PICKER-CTE TEACHER Work Phone: [facility] 01-27-2024 14:41-0400 Body temperature 97.3 [degF] Cande Rand APRN-CTE TEACHER Work Phone: [facility] 01-27-2024 14:41-0400 Body weight 62.6 kg Cande Rand APRN-CTE TEACHER Work Phone: [facility] 01-27-2024 14:41-0400 Diastolic blood pressure 60 mm[Hg] Cande Rand APRN-CTE TEACHER Work Phone: [facility] 01-27-2024 14:41-0400 Heart rate 70 /min Cande VU Work Phone: [facility] [employer] [facility] 01-27-2024 14:41-0400 Respiratory rate 12 /min Cande BACKCTE TEACHER Work Phone: [facility] 01-27-2024 14:41-0400 SaO2% (BldA) [Mass fraction] 99 % Cande VU Work Phone: [facility] 01-27-2024 14:41-0400 Systolic blood pressure 112 mm[Hg] Cande BACKCTE TEACHER Work Phone: [facility] 01-07-2024 09:36-0400 Body height 154.9 cm Cande BACKCTE TEACHER Work Phone: [facility] 01-07-2024 09:36-0400 Body mass index (BMI) [Ratio] 27.21 kg/m2 Cande BACKCTE TEACHER Work Phone: [facility] 01-07-2024 09:36-0400 Body temperature 98.29 [degF] Cande VU Work Phone: [facility] 01-07-2024 09:36-0400 Body weight 65.32 kg Cande BACKCTE TEACHER Work Phone: [facility] 01-07-2024 09:36-0400 Diastolic blood pressure 62 mm[Hg] Cande BACKCTE TEACHER Work Phone: [facility] 01-07-2024 09:36-0400 Heart rate 69 /min Cande VU Work Phone: [facility] 01-07-2024 09:36-0400 SaO2% (BldA) [Mass fraction] 96 % Cande BACKCTE TEACHER Work Phone: [facility] 01-07-2024 09:36-0400 Systolic blood pressure 102 mm[Hg] Cande Rand BEAN P[employer]ER-CTE TEACHER Work Phone: [facility] Encounters Encounter Date Encounter Type Care Provider Facility Start: 11-21-2024 Non-patient / Non-visit Geovanni parada DO Work Phone: [facility] Work Phone: Start: 11-21-2024 End: 11-21-2024 Admission to same day surgery center Geovanni Rivers DO Work Phone: [facility] Work Phone: Start: 11-21-2024 End: 11-21-2024 ambulatory Geovanni Rivers DO Work Phone: [facility] Work Phone: Start: 11-09-2024 End: 11-09-2024 ambulatory [facility] Work Phone: Start: 11-09-2024 End: 11-09-2024 Patient encounter procedure [facility] Work Phone: Start: 08-08-2024 End: 08-08-2024 ambulatory [facility] Start: 06-27-2024 End: 06-27-2024 Office outpatient visit 25 minutes Geovanni Rivers DO Work Phone: [facility] Comment on above: IBD (inflammatory mira wel disease); Heartburn Start: 06-27-2024 End: 06-27-2024 ambulatory [facility] Start: 06-08-2024 End: 06-09-2024 Telephone encounter Julia Boss CMA [facility] Start: 05-31-2024 End: 05-31-2024 Office outpatient visit 25 minutes [facility] Comment on above: Ulcerative rectosigm oiditis without complication ([facility]) (Primary Dx); IBD (inflammatory bowel disease); Heartburn; Nausea and vomiting, unspecified vomiting type; Hyponatremia with extracellular fluid depletion Start: 05-31-2024 End: 05-31-2024 ambulatory [facility] Start: 05-31-2024 End: 05-31-2024 Emergency department patient visit [facility] Start: 05-27-2024 End: 05-27-2024 ambulatory Mandy Polo RN [facility] Start: 05-02-2024 End: 05-02-2024 Telephone encounter Herminio Leos CMA [facility] Start: 05-01-2024 End: 05-03-2024 Telephone encounter Herminio Leos CMA [facility] Start: 04-19-2024 End: 04-19-2024 Office outpatient visit 25 minutes Geovanni Rivers DO Work Phone: [facility] Comment on above: IBD (inflammatory mira wel disease) (Primary Dx) Start: 04-19-2024 End: 04-19-2024 ambulatory [facility] Start: 03-16-2024 End: 03-16-2024 Office outpatient visit 25 minutes Geovanni Rivers DO Work Phone: [facility] Medicine Comment on above: IBD (inflammatory mira wel disease) (Primary Dx); Colitis due to Clostridioides difficile Start: 03-16-2024 End: 03-16-2024 ambulatory [facility] Start: 03-08-2024 End: 03-08-2024 Evaluation and management of inpatient [facility] Start: 03-07-2024 End: 03-07-2024 ambulatory [facility] Pat Phone Call Provider 1 [facility] Pre Ad[facility] Start: 03-07-2024 End: 03-07-2024 ambulatory [facility] Start: 02-10-2024 End: 02-10-2024 Emergency department patient visit [facility] Start: 02-08-2024 End: 02-08-2024 ambulatory [facility] Start: 02-08-2024 End: 02-08-2024 Office outpatient visit 25 minutes Geovanni Rivers DO Work Phone: [facility] Internal Medicine - Family Medicine Comment on above: Colitis (Primary Dx) ; Hypotension, unspecified hypotension type Start: 01-27-2024 End: 01-27-2024 Office outpatient visit 15 minutes Cande Rand [employer] TEACH[employer] Work Phone: [facility] Internal Medicine - Family Medicine Comment on above: Colitis due to Clost ridioides difficile (Primary Dx) Start: 01-27-2024 End: 01-27-2024 ambulatory [facility] Start: 01-25-2024 End: 01-25-2024 Orders Only Not In System Ref Prov [facility] General Surgery Start: 01-24-2024 End: 01-24-2024 Refill Felisha Camille [facility] Internal Medicine - Family Medicine Start: 01-07-2024 End: 01-08-2024 ambulatory [facility] Start: 01-07-2024 End: 01-07-2024 Office outpatient visit 15 minutes Cande Rand BEAN P[employer] TE[employer]ER Work Phone: [facility] Internal Medicine - Family Medicine Comment on above: Colitis (Primary Dx) ; Hypokalemia; Reactive depression; Screen for colon cancer Start: 01-07-2024 End: 01-07-2024 ambulatory [facility] Start: 08-27-2019 End: 08-27-2019 Patient encounter procedure PANCHITO JUAREZ Facility:H1 Procedures Date Procedure Procedure Detail Performing Clinician Start: 11-21-2024 Colonoscopy Geovanni Rivers DO Work Phone: Start: 06-27-2024 Adult depression scr eening assessment Geovanni Rivers DO Work Phone: Start: 05-31-2024 Adult depression scr eening assessment Geovanni Rivers DO Work Phone: Start: 04-19-2024 Adult depression scr eening assessment Geovanni Rivers DO Work Phone: Start: 03-16-2024 Adult depression scr eening assessment Geovanni Rivers DO Work Phone: Start: 02-08-2024 Adult depression scr eening assessment Geovanni Rivers DO Work Phone: Start: 01-27-2024 Adult depression scr eening assessment Cande Rand BEAN P[employer] TEACHER Work Phone: Start: 01-16-2024 MULTIPLE LABS Not In Sy stem Ref Prov Start: 01-07-2024 Follow-up visit Follow-up CANDE RAND Start: 01-07-2024 Adult depression scr eening assessment Cande Rand BEAN P[employer]E TEACHER Work Phone: Plan of Treatment Date Care Activity Detail Author Start: 06-27-2025 Adult BMI Screening Adult BMI Screen ing [facility] Start: 06-27-2025 Depression Screening Depression Scre ening [facility] Start: 05-31-2025 Adult BMI Screening Adult BMI Screen ing [facility] Start: 05-31-2025 Depression Screening Depression Scre ening [facility] Start: 05-31-2025 Tobacco Screening Tobacco Screening [facility] Start: 04-19-2025 Adult BMI Screening Adult BMI Screen ing [facility] Start: 04-19-2025 Depression Screening Depression Scre ening [facility] Start: 04-19-2025 Tobacco Screening Tobacco Screening [facility] Start: 03-16-2025 Adult BMI Screening Adult BMI Screen ing [facility] Start: 03-16-2025 Depression Screening Depression Scre ening [facility] Start: 03-16-2025 Tobacco Screening Tobacco Screening [facility] Start: 03-08-2025 Adult BMI Screening Adult BMI Screen ing [facility] Start: 03-08-2025 Tobacco Screening Tobacco Screening [facility] Start: 02-07-2025 Adult BMI Screening Adult BMI Screen ing [facility] Start: 02-07-2025 Depression Screening Depression Scre ening [facility] Start: 02-07-2025 Tobacco Screening Tobacco Screening [facility] Start: 01-26-2025 Adult BMI Screening Adult BMI Screen ing [facility] Start: 01-26-2025 Depression Screening Depression Scre ening [facility] Start: 01-26-2025 Tobacco Screening Tobacco Screening [facility] Start: 01-06-2025 Adult BMI Screening Adult BMI Screen ing [facility] Start: 01-06-2025 Depression Screening Depression Scre ening [facility] Start: 01-06-2025 Tobacco Screening Tobacco Screening [facility] Start: 11-21-[address] [facility] Start: 08-08-2024 End: 08-08-2024 Patient encounter procedure 08/08/2024 2:30 PM EST [facility] [address] [place] [address] Geovanni Rivers, DO [address] [place] [address] [facility] Internal Medicine - Family Medicine Start: 06-27-2024 End: 06-27-2024 Patient encounter procedure 06/27/2024 4:00 PM EST [facility] [address] [place] [address] Geovanni Rivers, DO [address] [place] [address] [facility] Start: 05-31-2024 End: 05-31-2024 Patient encounter procedure 05/31/2024 1:40 PM EDT Office Visit [facility] Internal Medicine - Family Medicine [address] [place] [address] Leonel Avalos, BEAN PICKER-SUBWAY GUARD [address] [place] [address] [facility] Internal Medicine - Family Medicine Start: 04-19-2024 End: 04-19-2024 Patient encounter procedure 04/19/2024 2:45 PM EDT Office Visit [facility] Internal Medicine - Family Medicine [address] [place] [address] Geovanni Rivers, DO [address] [place] [address] [facility] Internal Medicine - Family [facility] Start: 03-16-2024 End: 03-16-2024 Patient encounter procedure 03/16/2024 11:15 AM EDT Office Visit [facility] Internal Medicine - Family [facility] [address] [place] [address] Geovanni Rivers, DO [address] [place] [address] [facility] Internal Medicine - [facility] Start: 03-08-2024 End: 03-08-2024 Admission to same day surgery center 03/08/2024 10:00 AM EDT - 03/08/2024 11:00 AM EDT Surgery [facility] [address] [place] [place] [address] Geovanni Rivers, DO [address] [place] [address] COLONOSCOPY DIAGNOSTIC / SCREENING [90650 (CPT )] [facility] Comment on above: COLONOSCOPY DIAGNOST IC / SCREENING [83995 (CPT )] Start: 03-08-2024 Subsequent hospital visit by physician 03/08/2024 10:00 AM EDT Hospital Encounter [facility] [address] [place] [address] Geovanni Rivers, DO [address] [place] [address] [facility] Start: 03-08-2024 End: 03-08-2024 Colonoscopy flx dx w/collj spec when pfrmd [facility] Start: 03-07-2024 End: 03-07-2024 ambulatory 03/07/2024 3:40 PM EDT Support Visit [facility] Pre Admit [address] [place] [id number] [facility] Start: 01-27-2024 End: 01-27-2024 Patient encounter procedure 01/27/2024 2:40 PM EDT Office Visit [facility] Internal Medicine - Family Medicine [address] [place] [id number] Cande Rand, BEAN PICKER-CTE TEACHER [address] [place] [address] [facility] Internal Medicine - Family Medicine Start: 1998 Screening for malign ant neoplasm of cervix Pap Smear [facility] Start: 1996 DTaP,Tdap and Td Vaccines (1 - Tdap) DTaP,Tdap and Td Vaccines (1 - Tdap) [facility] Start: 1995 Adult BMI Follow Up Plan Adult BMI Follow Up Plan [facility] End: 03-16-2025 C-reactive protein C-reactive protein Lab Routine IBD (inflammatory bowel disease) 1 Occurrences starting 03/16/2024 until 03/16/2025 [employer] Work Phone: Comment on above: 1 Occurrences starti ng 03/16/2024 until 03/16/2025 End: 01-06-2025 Colonoscopy Colonoscopy GI Routine Screen for colon cancer 1 Occurrences starting 01/07/2024 until 01/06/2025 [employer] Work Phone: Comment on above: 1 Occurrences starti ng 01/07/2024 until 01/06/2025 End: 02-07-2025 Colonoscopy Colonoscopy GI Routine Colitis 1 Occurrences starting 02/08/2024 until 02/07/2025 [facility] Work Phone: Comment on above: 1 Occurrences starti ng 02/08/2024 until 02/07/2025 Colonoscopy flx dx w/collj spec when pfrmd COLONOSCOPY DIAGNOSTIC / SCREENING Colitis [facility] End: 03-16-2025 Cytoplasmic Neutrophilic Ab, S Cytoplasmic Neutrophilic Ab, S Lab Routine IBD (inflammatory bowel disease) 1 Occurrences starting 03/16/2024 until 03/16/2025 [employer] Comment on above: 1 Occurrences starti ng 03/16/2024 until 03/16/2025 Patient Education Hemorrhoids ED Colitis - Discharge instructions Know your Meds [facility] Work Phone: [facility] Payers Date Payer Category Payer Self-pay 2023 Medicaid [employer] [facility] O [id number] 2023-Present [phone] [address] [place] [address] [id number] 2023 Medicaid HMO [employer] [id number] 2023 Medicaid [id number] 1975 Unknown [id number] 1977 Unknown [id number] 1977 Unknown [id number] [id number] 1977 Unknown [id number] [id number] 1977 Unknown [id number] [id number] 1977 Unknown [id number] [id number] 1977 Unknown [id number] 2.16.840.1.163862.3.579.2.1285 1977 Unknown [id number] [id number] 1977 Unknown [id number] [id number] 1977 Unknown [id number] [id number] 1977 Unknown [id number] [id number] 1977 Unknown [id number] [id number] 1977 Unknown [id number] [id number] 1977 Unknown [id number] 2.16840.1.170101.3.579.2.[facility]1959 Unknown [id number] Unknown [id number] Social History Date Type Detail Facility Start: 01-07-2024 End: 11-21-2024 Tobacco smoking status DCIS Ex-smoker [facility] History of tobacco use Current smoker [facility] History of tobacco use Cigarette Smoker P [facility] Start: 01-07-2024 End: 06-27-2024 Cigarettes smoked current (pack per day) - Reported 0.5 [facility] Start: 01-07-2024 Tobacco use and exposure Smokeless tobacco non-user [facility] Start: 01-27-2024 End: 06-27-2024 Alcoholic beverage intake Ex-drinker (finding) [facility] Start: 01-27-2024 End: 06-27-2024 Tobacco use panel [facility] Adolescent depressio n screening assessment 0 [facility] Start: 06-28-2023 Alcohol Comment Rarely [facility] Start: 1975 [facility] assigned at [facility] Start: 05-13-2022 End: 11-21-2024 Sex Female (finding) [facility] Tobacco smoking stat us DCIS Unknown if ever smoked [facility] Work Phone: Start: 1975 Sex Assigned At Female F [facility] Goals Date Patient Goal Desired Activity /State Clinical Notes 11-10-2023 to 11-21-2024 Note Date & Type Note Facility 11-21-2024 Procedure note [facility] 11-09-2024 Evaluation note Authored November 09, 2024 11:57am 49-year-old female referred to the GI clinic for evaluation of ulcerative colitis. Patient had a colonoscopy a year ago which showed left-sided colitis consistent with UC. Patient is currently on mesalamine 400 mg twice daily. Will arrange for colonoscopy. Will check CBC CRP and fecal calprotectin Will increase mesalamine to 1.2 g twice daily [facility] Work Phone: [phone] 238-602211-05-2024 History of Present illness Narrative* Geovanni Rivers, DO - 06/27/2024 4:00 PM EST IM PROGRESS NOTE Patient - Kelli Lake Age - 49 y.o. - 1975 ASSESSMENT & PLAN 1. IBD (inflammatory bowel disease) -patient is tolerating low-dose of mesalamine, with improvement in her BMs in both consistency and frequency. -will slowly increase mesalamine up to 400 mg b.i.d.. We will continue to tolerate up as needed fortolerance as well as control of her stool symptoms - mesalamine (DELZICOL) 400 mg capsule (with del rel tablets) DR capsule; Take 1 capsule (400 mg total) by mouth in the morning and 1 capsule (400 mg total) in the evening. Take with meals. Dispense:60 capsule; Refill: 1 2. Heartburn -heartburn and [...] symptoms. Has been diagnosed with IBD based oncolon biopsies. Has been started on several different [...] 72 Temp 36.7 C (98.1 F) (Oral) Resp18 Ht 154.9 cm (5' 1 ) Wt [...] Testing No results found. Geovanni Rivers DO., [facility] Physicians Office: [phone] [facility] Miscellaneous Notes* Telephone Encounter - Julia Boss CMA - 06/08/2024 1:13 PM EDT Pt called and states that since she has been taking the pepcid her indigestion is worse especially at night. She has been taking it for about a week. Please advise. * Telephone Encounter - Geovanni Rivers DO - 06/08/2024 1:13 PM EDT Message noted. Pepcid cannot cause indigestion. She [...] her bed on a brick or 2x4 * Telephone Encounter - Julia Boss CMA - 06/08/2024 1:13 PM EDT Called pt. Read note. Pt verbalizes understanding. [facility] Telephone encounter Note* Telephone Encounter - Julia Boss CMA - 06/08/2024 1:13 PM EDT Pt called and states that since she has been taking the pepcid her indigestion is worse especially at night. She has been taking it for about a week. Please advise. [facility]10-17-2024 Telephone encounter Note* Telephone Encounter - Geovanni Rivers DO - 06/08/2024 1:13 PM EDT Message noted. Pepcid cannot cause indigestion. She [...] her bed on a brick or 2x4 [facility]10-17-2024 Telephone encounter Note* Telephone Encounter - Julia Boss CMA - 06/08/2024 1:13 PM EDT Called pt. Read note. Pt verbalizes understanding. [facility]10-09-2024 History of Present illness Narrative* Geovanni Rivers DO - 05/31/2024 4:30 PM EDT IM PROGRESS NOTE Patient - Kelil Lake Age - 49 y.o. - 1975 ASSESSMENT & PLAN 1. 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 -the long-term problems and morbidity associated with untreated ulcerative colitis. -we talked about the various treatment options including the medications that have been tried, starting rectal steroids, and TNF petros injections. -since she was able to swallow the most recent mesalamine (Delzicol), we will have her start takingthis once daily with food to try and [...] -will monitor serially Subjective FOLLOW-UP: EMERGENCY DEPARTMENT ([place]) and hospital visit ([place]) Patient was discharged from the facility on: 05/31/2024 from the ED, and 05/25/2024 for hospital visit at [place] Diagnosis was: 1. Was admitted to [place] for nausea vomiting and colitis. CT showed [...] so presented to the emergency department at [place]. Work-up and testing included: Surgery or biopsies? [...] does have intermittent nausea and vomiting, which seemsto be related to dietary choices, but maybe related to some of her UC flare-ups. She has been givenmultiple medications including Bentyl, promethazine orally which symptomatically help. However, when she is vomiting she can not keep them down. She was given a promethazine suppository, but did not use it because I do not know how . She was given a low residue diet, which she follows partially. She has been referred to Gastroenterology at [facility], but her appointment is not until September 11. The problem is better than at discharge. [...] Exam Vitals reviewed. Exam conducted with a weld technician present (Mother). Constitutional: General: She is not [...] osseous lesion. Severe scoliosis with partially imaged spinalrod. PERITONEUM/RETROPERITONEUM: No free air or significant free fluid. IMPRESSION: * Limited evaluation in the absence of intravenous contrast. * Within this limitation, no acute findings in the abdomen or pelvis. Geovanni Rivers DO., [facility] Phys[facility] Office: [phone] documented in this encounterProMedica Health [id number] Miscellaneous Notes* Telephone Encounter - Mandy Polo RN - 05/27/2024 8:17 AM EDT ----- Message from Eun sent at 05/27/2024 8:13 AM EDT ----- Contract: 198 - Was just discharged yesterday from ER and the 2 antibiotic pills she has questions about. * Telephone Encounter - Mandy Polo RN - 05/27/2024 8:17 AM EDT Contract: 198 Was hospitalized ([place]) x 5 days for a Colitis flair [...] her on Augmentin Will speak to provider sap integration architect to discuss Reason for Disposition [1] Follow-up call from patient regarding patient's clinical status AND [2] information urgent Protocols used: PCP Call - No Triage-A-AH * Telephone Encounter - Mandy Polo RN - 05/27/2024 8:[address] Rivers on his cell phone- warm transferred him to [facility] documented in [facility] Telephone encounter Note* Telephone Encounter - Mandy Polo RN - 05/27/2024 8:17 AM EDT ----- Message from Eun sent at 05/27/2024 8:13 AM EDT ----- Contract: 198 - Was just discharged yesterday from ER and the 2 antibiotic pills she has questions about. [facility]10-05-2024 Telephone encounter Note* Telephone Encounter - Mandy Polo RN - 05/27/2024 8:17 AM EDT Contract: 198 Was hospitalized ([place]) x 5 days for a Colitis flair [...] her on Augmentin Will speak to provider sap integration architect to discuss Reason for Disposition [1] Follow-up call from patient regarding patient's clinical status AND [2] information urgent Protocols used: PCP Call - No Triage-A- [facility]10-05-2024 Telephone encounter Note* Telephone Encounter - Mandy Polo RN - 05/27/2024 8:[address] Rivers on his cell phone- warm transferred him to [facility]09-10-2024 Miscellaneous Notes* Telephone Encounter - Herminio Leos CMA - 05/02/2024 10:24 AM EDT Message noted. I have no other medications that I can offer. I suggest that we have her see a redrying machine operator at this time. [facility] are [place]. I can make arrangements if she is willing Note [facility] Telephone encounter Note* Telephone Encounter - Herminio Leos CMA - 05/02/2024 10:24 AM EDT Message noted. I have no other medications that I can offer. I suggest that we have her see a redrying machine operator at this time. [facility] are in [place]. I can make arrangements if she is willing Note [facility] [employer] [id number] Miscellaneous Notes* Telephone Encounter - Herminio Leos CMA - 05/01/2024 2:25 PM EDT Pt called and would like to let you know that she had side effects of new medication. It caused herto have nausea and cramping since last week she stopped after 3 days and is feeling better. Do you want to try something else? Pharmacy is listed and correct. * Telephone Encounter - Geovanni Rivers DO - 05/01/2024 2:25 PM EDT Message noted. I have no other medications that I can offer. I suggest that we have her see a redrying machine operator at this time. [facility] are in [place]. I can make arrangements if she is willing * Telephone Encounter - Delmis Red CMA - 05/01/2024 2:25 PM EDT Patient agrees to see specialist * Telephone Encounter - Geovanni Rivers DO - 05/01/2024 2:25 PM EDT Message noted. A referral to Shakira Arias, at [facility], was sent today The patient can schedule her appointment at any time. documented in this encounter[facility] Telephone encounter Note* Telephone Encounter - Herminio Leos CMA - 05/01/2024 2:25 PM EDT Pt called and would like to let you know that she had side effects of new medication. It caused herto have nausea and cramping since last week she stopped after 3 days and is feeling better. Do you want to try something else? Pharmacy is listed and correct. [facility]09-09-2024 Telephone encounter Note* Telephone Encounter - Geovanni Rivers DO - 05/01/2024 2:25 PM EDT Message noted. I have no other medications that I can offer. I suggest that we have her see a redrying machine operator at this time. [facility] are in [place]. I can make arrangements if she is willing [facility]09-09-2024 Telephone encounter Note* Telephone Encounter - Delmis Red CMA - 05/01/2024 2:25 PM EDT Patient agrees to see specialist [facility]09-09-2024 Telephone encounter Note* Telephone Encounter - Geovanni Rivers DO - 05/01/2024 2:25 PM EDT Message noted. A referral to Shakira Arias, at [facility], was sent today The patient can schedule her appointment at any time. [facility]08-28-2024 History of Present illness Narrative* Geovanni Rivers DO - 04/19/2024 2:30 PM EDT IM PROGRESS NOTE Patient - Kelli Lake Age - 49 y.[facility]. [facility] 1975 [id number] ASSESSMENT & PLAN 1. IBD (inflammatory bowel disease) -initially had improvement in symptoms with sulfasalazine, but unable to tolerate the large pills -will start mesalamine daily -monitor symptoms. If they are controlled, and she can tolerate the pills, we will continue on thisroutinely. Would need a recheck colonoscopy in 6 months. -if unable to tolerate the new medication, or symptoms not controlled, will refer to GI for furtherevaluation. - mesalamine (LIALDA) 1.2 gram EC tablet; [...] Exam Vitals reviewed. Exam conducted with a weld technician present (Mother). Constitutional: General: She is not [...] (1.2 g total) by mouth daily with breakfast.,Disp: 30 tablet, Rfl: 1 Lab Results No [...] 17 - 40 U/L Final Specific gravity MEÑO 02/10/2024 1.025 1.003 - 1.035 Final Leukocyte esterase MEÑO 02/10/2024 Negative Negative^Negative Final Nitrite [facility] 02/10/2024 Negative Negative^Negative Final Ph 02/10/2024 6.0 5.0 - 8.5 Final Protein MEÑO 02/10/2024 30 (A) Negative^Negative mg/dL Final Urine glucose MEÑO 02/10/2024 Negative Negative^Negative mg/dL Final Ketones [facility] 02/10/2024 80 (A) Negative^Negative mg/dL Final Urobilinogen MEÑO 02/10/2024 0.2 <1.1 eu/dL Final Bilirubin [facility] 02/10/2024 Small (A) Negative^Negative Final Hemoglobin [facility] 02/10/2024 Negative Negative^Negative Final Nursing urine 02/10/2024 Negative Negative^Negative Final Other Testing No results found. Geovanni Rivers DO., [facility] Physicians Office: [phone] documented [facility] encounter[facility] History of Present illness Narrative* Geovanni Rivers DO - 03/16/2024 11:15 AM EDT IM PROGRESS NOTE Patient - Kelli Lake Age - 48 y.[facility]. [facility] 1975 [id number] ASSESS[facility] & PLAN 1. IBD (inflammatory bowel [...] diarrhea and review of recent colonoscopy. She hadbeen diagnosed with C difficile colitis at [facility] earlier this year, and had a very prolonged recovery, with several exacerbations and returned to the ED. she was having difficulty eating due to vomiting, along with frequent loose stools. She had been treated initially with Flagyl, and ultimately was treated with oral vancomycin. -since her last visit, her bowels are much better controlled. She generally has 2 or 3 mushy stoolsin the morning, and again in the evening. However they are controlled and without cramping, blood or mucus. -her appetite is improved. She is no longer having any nausea or vomiting. Is not having to take the Phenergan RS. -she is following a low residue diet, but has been able to expand the food choices without problemsrecently. -she underwent a colonoscopy last week which did show some pseudomembranes, but there were some patchy areas of colitis, and the biopsy did show acute and chronic inflammatory changes, with crypt distortion, bringing up the possibility of ulcerative colitis, and even Crohn's, although no granulomaswere noted. -there is a family history of ulcerative colitis in a cousin. A review of systems was negative except for the following: Gastrointestinal: Loose, mushy stools Musculoskeletal: joint stiffness and and known severe scoliosis of the thoracolumbar spine. Exam BP 100/80 (BP Site: Right Arm, BP Postition: Sitting) Pulse 71 Temp 36.8 C (98.2 F) (Oral) Ht154.9 cm (5' 1 ) Wt 59.9 kg (132 lb 1.6 oz) SpO2 98% BMI 24.96 kg/m Physical Exam Vitals reviewed. Exam conducted with a weld technician present (Mother). Constitutional: General: She is not [...] 17 - 40 U/L Final Specific gravity [facility] 02/10/2024 1.025 1.003 - 1.035 Final Leukocyte esterase [facility] 02/10/2024 Negative Negative^Negative Final Nitrite [facility] 02/10/2024 Negative Negative^Negative Final Ph 02/10/2024 6.0 5.0 - 8.5 Final Protein [facility] 02/10/2024 30 (A) Negative^Negative mg/dL Final Urine glucose [facility] 02/10/2024 Negative Negative^Negative mg/dL Final Ketones [facility] 02/10/2024 80 (A) Negative^Negative mg/dL Final Urobilinogen [facility] 02/10/2024 0.2 <1.1 eu/dL Final Bilirubin [facility] 02/10/2024 Small (A) Negative^Negative Final Hemoglobin [facility] 02/10/2024 Negative Negative^Negative Final Nursing [...] of neutrophilic infiltrate and cryptitis in the backgroundof preserved crypt architecture. In part 2, there is evidence of chronicity, represented by areas of crypt architectural distortion. The differential diagnosis for the observed findings include infectious or medication induced (in particular, NSAIDs) colitis, as well as ischemic injury and idiopathic inflammatory bowel disease, among others. Clinical and endoscopic correlation recommended. Geovanni Rivers DO., [facility] Physicians Office: [phone] documented in this encounterSelect [facility] [place] Nurse Note* Perioperative Nursing Note - Daily Balderas RN - 03/07/2024 12:08 PM EDT Preoperative Education Checklist- General Surgery date: 03/08/24 Surgery time: 10a Arrival time: 9a 1. Bring a photo ID and your insurance card with you the day of surgery. You will check in at the main lobby of the [facility]- registration desk is straight ahead as soon as you walk in. Tell them you are here for surgery. 2. If you have a Living Will/Durable Power of Equipment Installer for Health Care that is not on [...] after you have bathed. 5. NO nail sammarinese/acrylic on at least one finger. If you are having a hand, wrist or foot surgery then all nail sammarinese and artificial/acrylic nails must be removed from [...] least 8 hours and marijuana for 24 hoursprior to arrival for your surgery. 16. If [...] please call the Preadmission Testing office at [phone], Mon.-Fri. 7 a.m.-3 p.m. Leave a voicemail if needed. Pre-Surgery Instructions: Medication Instructions escitalopram (LEXAPRO) 5 mg tablet Stop taking 0 days prior to procedure dicyclomine (BENTYL) 20 mg tablet Stop taking 0 days prior to procedure hyoscyamine (LEVSIN) 0.125 mg SL tablet Stop taking 0 days prior to procedure peg 3350-sod sulf,fzzv-aza-cyn 178.7-7.3-0.5 gram recon soln Check with prescribing doctor for instructions polyethylene glycol (GOLYTELY) 236-22.74-6.74 -5.86 gram solution Check with prescribing doctor forinstructions PROMETHEGAN 12.5 mg suppository Stop taking 0 days prior to procedure [employer] [id number] Miscellaneous Notes* Perioperative Nursing Note - Daily Balderas RN - 03/07/2024 12:08 PM EDT Preoperative Education Checklist- General Surgery date: 03/08/24 Surgery time: 10a Arrival time: 9a 1. Bring a photo ID and your insurance card with you the day of surgery. You will check in at the main lobby of the [facility]- registration desk is straight ahead as soon as you walk in. Tell them you are here for surgery. 2. If you have a Living Will/Durable Power of Equipment Installer for Health Care that is not on [...] after you have bathed. 5. NO nail sammarinese/acrylic on at least one finger. If you are having a hand, wrist or foot surgery then all nail sammarinese and artificial/acrylic nails must be removed from [...] least 8 hours and marijuana for 24 hoursprior to arrival for your surgery. 16. If [...] please call the Preadmission Testing office at [phone], Mon.-Fri. 7 a.m.-3 p.m. Leave a voicemail if needed. Pre-Surgery Instructions: Medication Instructions escitalopram (LEXAPRO) 5 mg tablet Stop taking 0 days prior to procedure dicyclomine (BENTYL) 20 mg tablet Stop taking 0 days prior to procedure hyoscyamine (LEVSIN) 0.125 mg SL tablet Stop taking 0 days prior to procedure peg 3350-sod sulf,zvwa-mdh-osu 178.7-7.3-0.5 gram recon soln Check with prescribing doctor for instructions polyethylene glycol (GOLYTELY) 236-22.74-6.74 -5.86 gram solution Check with prescribing doctor forinstructions PROMETHEGAN 12.5 mg suppository Stop taking 0 days prior to procedure documented in this encounterSelect [facility] [place]06-18-[facility] History of Present illness Narrative* Geovanni Rivers, DO - 02/08/2024 9:15 AM EDT IM PROGRESS NOTE Patient - Kelli Lake Age - 48 y.o. - 1975 ASSESSMENT & PLAN 1. Colitis -patient with several episodes of colitis, including C difficile colitis most recently. -at the current time, not having symptoms directly related to active infection, but more related torecovering from the infection. -patient was advised, and [...] it, she does not think it helps. Doesnot always have nausea. Does report occasional episodes where it is difficult to swallow. She currently is not following any particular diet, all reports eating fresh fruit over the last few days. Her bowels are intermittently loose and hard. She does report occasional blood streaking of mucus. Hasnever had any problems like this in the past. -problems started about 6 weeks ago when she was seen in [place] ED, diagnosed with colitis, and placed on antibiotics. Her symptoms never really went away, and she returned to the emergency department for evaluation. -at that time she was diagnosed with C difficile colitis, was placed on Flagyl and steroids and discharged home. She felt terrible with nausea vomiting and generalized weakness. -she returned to [place] ED, was admitted to the hospital for [...] 78 Temp 36.7 C (98.1 F) (Oral) Resp18 Ht 154.9 cm (5' 1 ) Wt 60.2 kg (132 lb 11.2 oz) SpO2 96% BMI 25.07 kg/m Physical Exam Vitals reviewed. Exam conducted with a weld technician present (Mother). Constitutional: General: She is not [...] in right lower quadrant, and to a lesserextent diffusely). There is no guarding. Musculoskeletal: Right [...] Testing No results found. Geovanni Rivers DO., [facility] Physicians Office: [phone] documented in this encounterSelect [facility] [place]06-06-2024 History of Present illness Narrative* Cande Rand, MAEGAN-CTE TEACHER - 01/27/2024 2:40 PM EDT Subjective Patient ID: Kelli Lake is a 48 y.o. female. She was in the hospital for intractable vomiting The organ installer initially thought she had pancreatitis but eventially determined it was a reaction tomultiple medication but mostly an intolerance to flagll [...] past medical history, past social history, past surgicalhistory, problem list, and medication reconciliation was completed including current medication andpost discharge medication. Review of Systems Gastrointestinal: Positive [...] call and then will schedule her colonoscopy whichdoes need to get done and she is agreeable Will have her follow up in the office with Dr Rivers following the colonoscopy She may continue the hycosamine for cramping MIRELLA Oconnell 01/27/24 [id number] documented in this encounterSelect [facility] [place]06-03-2024 Miscellaneous Notes* Telephone Encounter - Felisha Obrien CMA - 01/24/2024 12:03 PM EDT Pt called requesting a refill she knows they are from the hospital but wanted to know if you could refill them she has 1 left just in case and plans to talk to you about them at her visit at the end of the week documented in this encounterSelect [facility] [place]06-03-2024 Telephone encounter Note* Telephone Encounter - Felisha Orbien CMA - 01/24/2024 12:03 PM EDT Pt called requesting a refill she knows they are from the hospital but wanted to know if you could refill them she has 1 left just in case and plans to talk to you about them at her visit at the end of the week [facility] [place] History of Present illness Narrative* MIRELLA Oconnell - 01/07/2024 9:40 AM EDT Subjective Patient ID: Kelli Lake is a [...] past medical history, past social history, past surgicalhistory, problem list, and medication reconciliation was completed including current medication andpost discharge medication. Review of Systems Constitutional: Negative. [...] MIRELLA Oconnell 01/07/24 1126 documented in this encounterSelect [facility] [place]03-20-2024 Evaluation note* Author Belinda RubalcavaOhioHealth Authored November 09, 2024 11: 57am 49-year-old female referred to the GI clinic for evaluation of ulcerative colitis. Patient had a colonoscopy a year ago which showed left-sided colitis consistent with UC. Patient is currently on mesalamine 400 mg twice daily. Will arrange for colonoscopy. Will check CBC CRP and fecal calprotectin Will increase mesalamine to 1.2 g twice daily [facility] Work Phone: Evaluation note* Diagnosis Colitis due to Clostridioides difficile- Primary [facility] Diagnosis Colitis- Primary Other and unspecified noninfectious gastroenteritis and colitis Hypokalemia Hypopotassemia Reactive depression Screen for colon cancer Special screening for malignant neoplasms, colon documented in this encounter [facility]* Diagnosis Colitis- Primary Other and unspecified noninfectious gastroenteritis and colitis Hypotension, unspecified hypotension type documented in this encounter [facility]* Diagnosis IBD (inflammatory bowel disease)- Primary Other and unspecified noninfectious gastroenteritis and colitis Colitis due to Clostridioides difficile [facility]* Diagnosis IBD (inflammatory bowel disease)- Primary Other and unspecified noninfectious gastroenteritis and colitis [facility]* Diagnosis 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[facility])- Primary IBD (inflammatory bowel disease) Other and unspecified noninfectious gastroenteritis and colitis Heartburn Nausea and vomiting, unspecified vomiting type Hyponatremia with extracellular fluid depletion Hyposmolality and/or hyponatremia documented in this encounter [facility]* Diagnosis IBD (inflammatory bowel disease) Other and unspecified noninfectious gastroenteritis and colitis Heartburn documented in this encounter [facility] Discharge instructions Additional Instructions DISCHARGE INSTRUCTIONS FOR COLONOSCOPY WHAT TO EXPECT: - You may feel full, gassy or cramping after your procedure. In some cases, this may be from a few hours to a day. Walking may help relieve the discomfort. - If you have polyp(s) removed you may note some minor bloody discharge after your first bowel movements. - You should begin to recover from anesthesia within 1 hour of the procedure, however may feel groggy for the next 24 hours. DO's AND DON'Ts: - Call your doctor right away if you have a hard abdomen, severe pain, are passing lots of bright red blood or clots. - Call your doctor if you develop any rashes, hives or difficulty breathing. - Let your doctor know if you have not had a bowel movement by 3 days after your procedure. - If you take 81 mg aspirin for your heart it is safe to resume this medication. - If you take other blood thinner medications your doctor will instruct you when these can safely be resumed. - Do NOT drive for 24 hours. - Do NOT operate machinery such as power tools, Link[employer] mowers, Wavecraftwers, sewing machines, etc. for 24 hours. - Avoid alcoholic beverages and drugs for allergies, nerves, or sleep. - Do NOT stay alone. Do NOT leave your child unattended. - Do NOT make important personal or business decisions or sign any legal documents. - Eat solid foods and drink liquids in smaller amounts than usual until normal appetite returns. If you should experience an upset stomach, liquids high in sugar content (soda, Ede-Aid, non-acid juices) are recommended. - You can resume normal activities tomorrow. FOLLOW UP & RECOMMENDATIONS: -Notify the doctor if you have any problems. -Follow-up pathology -Office number [phone]. [facility] Work Phone: InstructionsNot on filedocumented in this encounter [facility]ructionsNot on filedocumented in this encounter [facility]Not on filedocumented in this encounter [facility]ructionsNot on filedocumented in this encounter [facility]Not on filedocumented in this encounter [facility]ructionsNot on filedocumented in this encounter [facility]Not on filedocumented in this encounter [facility]Not on filedocumented in this encounter [facility] SystemInstructionsNot on filedocumented in this encounter [facility] Summary Purpose Family History No Family History Records Found Relationship Condition Age at Onset Recorded Date/T prabhakar father Unknown mother Diabetes mellitus Unknown Heart disease Unknown History of stroke Unknown Advance Directives No Advanced Directives Records Found Advance Directive Response Recorded Date/ Time Advance Directives No November 01 024 2:50pm Reason for Referral Specialty Diagnoses / Procedures Referred By Mik umanzor Referred To Contact Diagnoses Screen for colon cancer Procedures Colonoscopy Colonoscopy Cande Rand, BEAN PICKER-CTE TEACHER [address] [place] [address] Referral ID Status Reason Start Date Expiration Date V isits Requested Visits Authorized [id number] Pending Review 01/07/2024 01/06/2025 1 1 Chief Complaint and Reason for Visit Chief Complaint Admit Date Refer: ulcerative rectosigmoiditis November 09, 2024 11:05am Chief Complaint Admit Date Refer: ulcerative rectosigmoiditis November 09, 2024 11:05am November 21, 2024 8:08 am November 21, 2024 9:59 am Additional Source Comments INFORMATION SOURCE (unrecogn ized section and content) DATE CREATED AUTHOR 08/29/2019 [facility] DATE CREATED AUTHOR AUTHOR'S ORGANIZ ATION 01/10/2024 [facility] DATE CREATED AUTHOR AUTHOR'S ORGANIZ ATION 06/02/2024 [facility] DATE CREATED AUTHOR AUTHOR'S ORGANIZ ATION 08/11/2024 [facility] DATE CREATED AUTHOR AUTHOR'S ORGANIZ ATION 11/22/2024 [facility] Reason for Visit (unrecogniz ed section and [...] Care Teams (unrecognized sec tion and content) Assistant Paralegal Relationship Specialty Start Date End Date Geovanni Rivers DO [address] [place] [address] PCP - General Internal Medicine 01/27/24 Assistant Paralegal Relationship Specialty Start Date End Date Cande Rand, BEAN PICKER-[facility] [address] [place] [address] PCP - General Internal Medicine 06/28/23 Assistant Paralegal Relationship Specialty Start Date End Date Cande Rand, [facility] [address] [place] [address] PCP - General Internal Medicine 06/28/23 Assistant Paralegal Relationship Specialty Start Date End Date Cande Rand, [facility] [address] [facility] [place] [address] PCP - General Internal Medicine 06/28/23 Assistant Paralegal Relationship Specialty Start Date End Date Geovanni Rivers DO [address] [facility] [address] PCP - General Internal Medicine 01/27/24 Assistant Paralegal Relationship Specialty Start Date End Date Geovanni Rivers DO [address] [place] [address] PCP - General Internal Medicine 01/27/24 Assistant Paralegal Relationship Specialty Start Date End Date Geovanni Rivers DO [address] [place] [address] PCP - General Internal Medicine 01/27/24 Assistant Paralegal Relationship Specialty Start Date End Date Geovanni Rivers DO [address] [place] [address] PCP - General Internal Medicine 01/27/24 Assistant Paralegal Relationship Specialty Start Date End Date Geovanni Rivers DO [address] [place] [address] PCP - General Internal Medicine 01/27/24 Assistant Paralegal Relationship Specialty Start Date End Date Geovanni Rivers DO [address] [place] [address] PCP - General Internal Medicine 01/27/24 Assistant Paralegal Relationship Specialty Start Date End Date Geovanni Rivers DO [address] [place] [address] PCP - General Internal Medicine 01/27/24 Team Status: Active Member Role Status Dates PHYSICIAN NO FAMILY Primary Care Provider Active Team Status: Inactive Member Role Status Dates PHYSICIAN NO FAMILY Primary Care Provider Active Start: November 09, 2024 End: November 09, 2024 Belinda Medina MD Attending Provider Active Start: November 09, 2024 End: November 09, 2024 Team Status: Active Member Role Status Dates Geovanni Rivers DO Primary Care Provider Active Team Status: Inactive Member Role Status Dates Belinda Medina MD Attending Provider Active Start: November 21, 2024 End: November 21, 2024 Geovanni Rivers DO Primary Care Provider Active Sta rt: November 21, 2024 End: November 21, 2024 Team Status: Active Member Role Status Dates Belinda Medina MD Attending Provider, Other Provider Act walter Start: November 21, 2024 Geovanni Rivers DO Primary Care Provider Active Sta rt: November 21, 2024 Goals (unrecognized section and content) Goals may be documented in a n alternate section FOR RECORDS PERTAINING TO PATIENTS WHO ARE [...] BE BASED ON THE PRIMARY CLINICAL RECORDS. [facility] [employer] [facility]. provides no warranty or guarantee of the accuracy or completeness of information in this document.
[2024-11-24 14:41] LABS: Basophils Percent Auto 0.2 % (0.2-2.0); Eosinophils Percent Auto 0.2 % (0.9-7.0); Hemoglobin 10.9 g/dL (12.0-16.0); Immature Granulocytes Abs Auto 0.04 10^3/uL (0.00-0.03); Immature Granulocytes Pct Auto 0.3 % (0.0-0.5); Lymphocytes Absolute Auto 0.8 10^3/uL (1.2-3.8); Lymphocytes Percent Auto 5.3 % (20.5-60.0); Mean Corpuscular Hemoglobin 26.1 pg (26.7-34.0); Mean Corpuscular Volume 79.1 fL (81.0-99.0); Mean Platelet Volume 10.1 fL (9.5-13.5); Monocytes Absolute Auto 0.3 10^3/uL (0.3-0.8); Monocytes Percent Auto 2.3 % (1.7-12.0); Neutrophils Absolute Auto 13.3 10^3/uL (1.4-6.5); Neutrophils Percent Auto 91.7 % (43.0-75.0); Platelet Count 299 10^3/uL (150-450); Red Blood Count 4.17 10^6/uL (4.20-5.40); Red Cell Distribution Width 14.6 % (11.0-15.0); White Blood Count 14.5 10^3/uL (4.0-11.0)
[2024-11-24] MEDS: MORPHINE SULFATE 2 MG/ML SYRINGE IV ×2 (14:53→17:00)
[2024-11-24] MEDS: 0.9 % SODIUM CHLORIDE 1,000 ML 100 ML IV ×2 (14:53→18:09)
[2024-11-24] MEDS: ONDANSETRON PF 4 MG/2 ML VIAL IV (14:53)
[2024-11-24 15:08] LABS: Alanine Aminotransferase 18 U/L (14-59); Albumin Globulin Ratio 0.8; Albumin Level 3.8 g/dL (3.4-5.0); Alkaline Phosphatase 79 U/L (46-116); Anion Gap 14.8; Aspartate Amino Transferase 13 U/L (15-37); BUN Creatinine Ratio 12.5; Bilirubin Total 0.5 mg/dL (0.2-1.0); Calcium 9.2 mg/dL (8.5-10.1); Carbon Dioxide 23.9 mmol/L (21.0-32.0); Chloride 100 mmol/L (98-107); Estimated GFR (African America >60 (>=60 mL/min/1.73m^2); Estimated GFR (Non-African Ame >60 (>=60 mL/min/1.73m^2); Globulin 4.5 g/dL; Glucose 173 mg/dL (74-106); Potassium 3.7 mmol/L (3.5-5.1); Sodium 135 mmol/L (136-145); Total Protein 8.3 g/dL (6.4-8.2)
[2024-11-24] MEDS: FAMOTIDINE/PF 20 MG/2 ML VIAL IV (16:53)
--- NOTE | 2024-11-24 16:53 | ED_ITS ---
Documented by User: Ciera Naqvi 11/24/24 17:21 HPI - Abdominal Pain General Chief Complaint: Abdominal Pain Stated Complaint: ABDOMINAL PAIN Time Seen by Provider: 11/24/24 14:08 Source: patient Mode of arrival: walk-in Limitations: no limitations History of Present Illness HPI narrative: 49-year-old female presents here with a chief complaint of abdominal pain nausea vomiting. Patient has a history of ulcerative colitis. She states she had a CT scan earlier this week and they did some biopsies. CT scan showed that she had inflammation in the rectum and sigmoid and descending colon. GI from [facility] yesterday and wanted her to be started on 80 mg of prednisone daily. She states she cannot take that much medication and took 40 mg last night and attempted to take some this morning and began to have increased pain nausea vomiting. She is not febrile. Tender to palpation of the abdomen is noted. Related Data Home Medications ?Medication ?Instructions ?Recorded ?Confirmed mesalamine 400 mg capsule (with 400 mg PO TID 05/26/24 11/24/24 delayed release tablets inside) Allergies Allergy/AdvReac Type Severity Reaction Status Date / Time metronidazole (From Flagyl) AdvReac Intermediate Abdominal Verified 05/22/24 16:14 Pain Review of Systems ROS Narrative All Systems are negative except as noted/marked.All systems reviewed and otherwise negative PFSH PFS Medical History (Updated 11/24/24 @ 17:21 by Ciera Naqvi) Hyponatremia ?E87.1 - Hypo-osmolality and hyponatremia (ICD-10) Intractable abdominal pain ?R10.9 - Unspecified abdominal pain (ICD-10) Depression ?F32.A - Depression, unspecified (ICD-10) Colitis ?K52.9 - Noninfective gastroenteritis and colitis, unspecified (ICD-10) Acute proctitis ?K62.89 - Other specified diseases of anus and rectum (ICD-10) 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 of left artificial elbow joint (ICD-10) Scoliosis ?M41.9 - Scoliosis, unspecified (ICD-10) Surgical History Previous back surgery ?Z98.890 - Other specified postprocedural states (ICD-10) Family History Mother Family history of CHF (congestive heart failure) Family history of cancer Family history of hypertension Family history of myocardial infarction Family history of stroke Father Family history of cancer Social History (Updated 11/24/24 @ 18:40 by Emelina Espinoza) Within the past year, how often did you have a drink containing alcohol: monthly or less Within the past year, how often did you have six or more drinks on one occasion: less than monthly Smoking status: Former smoker Second hand tobacco smoke exposure: No Non-prescribed substance use: cannabis (any form) Previous occupational history: Does not Work Known occupational exposures/hazards: No Highest level of school completed/degree received: high school graduate Do you want help with school or training: No Are you now , , , , never or living with a partner: never In a typical week, how many times do you talk on the telephone with family, friends, or neighbors: 3 or more times per week How often do you get together with friends or relatives: 3 or more times per week How often do you attend shinto or sabianism services: never Do you belong to any clubs or organizations such as shinto groups unions, [employer] or athletic groups, or school groups: no Total score: 1 Score interpretation: A score of less than or equal to 1 indicates the most socially isolated. Little interest or pleasure in doing things: not at all Feeling down, depressed, or hopeless: several days Feel stressed/tense/nervous/anxious/difficulty sleeping: not at all Due to disability, difficulty making decisions: No Do you think of yourself as: straight/heterosexual Gender Identity: female Exam Narrative Exam Narrative: Nurses note and vital signs reviewed and patient is not hypoxic. General: The patient appears well and in no apparent distress. Patient is resting comfortably on cart. Skin: Warm, dry, no pallor noted. There is no rash noted. Head: Normocephalic, atraumatic Eye: Normal conjunctiva, no drainage, EOMI. PERRL Ears, Nose, Mouth, and Throat: oral mucosa is moist. Nares patent. Mouth without vesicles. Ear canals patent. Tm's without Erythema Cardiovascular: Regular Rate and Rhythm Respiratory: Patient is in no distress, no accessory muscle use, lungs are clear to auscultation, no wheezing, rales or rhonchi Back: non-tender, no CVA tenderness bilaterally to percussion. GI: diffuse tnederness to palpation, Normal bowel sounds, no masses appreciated. No rebound, guarding, or rigidity noted. Musculoskeletal: The patient has no evidence of calf tenderness, no pitting edema, symmetrical pulses noted bilaterally Neurological: A&O x4, normal speech Psychiatric: Cooperative Constitutional Vital Signs, click to edit/add: Last Vital Signs Temp 98.1 F 11/24/24 19:29 Pulse 65 11/24/24 19:29 Resp 18 11/24/24 19:29 BP 130/88 11/24/24 19:29 Pulse Ox 98 11/24/24 19:29 O2 Del Method Room Air 11/24/24 19:29 Course Vital Signs Vital signs: Vital Signs Temperature 98.2 F 11/24/24 13:26 Pulse Rate 70 11/24/24 13:26 Respiratory Rate 18 11/24/24 13:26 Blood Pressure 126/70 11/24/24 13:26 Pulse Oximetry 100 11/24/24 13:26 Oxygen Delivery Method Room Air 11/24/24 13:26 Temperature 98.1 F 11/24/24 19:29 Pulse Rate 65 11/24/24 19:29 Respiratory Rate 18 11/24/24 19:29 Blood Pressure 130/88 11/24/24 19:29 Pulse Oximetry 98 11/24/24 19:29 Oxygen Delivery Method Room Air 11/24/24 19:29 MDM - Abdominal Pain MDM Narrative Medical decision making narrative: 49-year-old female presents here with a chief complaint of abdominal pain nausea vomiting. Patient has a history of ulcerative colitis. She states she had a CT scan earlier this week and they did some biopsies. CT scan showed that she had inflammation in the rectum and sigmoid and descending colon. GI from [facility] yesterday and wanted her to be started on 80 mg of prednisone daily. She states she cannot take that much medication and took 40 mg last night and attempted to take some this morning and began to have increased pain nausea vomiting. She is not febrile. Tender to palpation of the abdomen is noted. Upon arrival to the emergency room IV was established patient was given IV fluids pain medicine. She continues to have nausea and pain. Patient's been given 4 of morphine, Zofran, Phenergan and Pepcid. We will also give her Solu- Medrol. Due to patient's history of ulcerative colitis and pain. Will admit the patient for IV steroid therapy. Patient agrees with plan of care. CT scan was shown to have presence of proctocolitis involving rectum sigmoid and descending colon. Patient does have an elevated white blood cell count most likely due to use of steroids. Other blood work was reviewed and showed to be consistent with her normal. Patient is stable to be admitted to the floor. I spoke to Dr. Castro who agreed with plan of care Differential Diagnosis Differential diagnosis: Likely abdominal pain and other Medical Records Attestation: I reviewed the patient's medical records. Lab Data Attestation: I reviewed the patient's lab results. Labs: Lab Results 11/24/24 Range/Units 14:32 WBC 14.5 H (4.0-11.0) 10^3/uL RBC 4.17 L (4.20-5.40) 10^6/uL Hgb 10.9 L (12.0-16.0) g/dL Hct 33.0 L (36.0-48.0) % MCV 79.1 L (81.0-99.0) fL MCH 26.1 L (26.7-34.0) pg MCHC 33.0 (29.9-35.2) g/dL RDW 14.6 (11.0-15.0) % Plt Count 299 (150-450) 10^3/uL MPV 10.1 (9.5-13.5) fL Neut % (Auto) 91.7 H (43.0-75.0) % Lymph % (Auto) 5.3 L (20.5-60.0) % [place] % (Auto) 2.3 (1.7-12.0) % Eos % (Auto) 0.2 L (0.9-7.0) % Baso % (Auto) 0.2 (0.2-2.0) % Neut # (Auto) 13.3 H (1.4-6.5) 10^3/uL Lymph # (Auto) 0.8 L (1.2-3.8) 10^3/uL [place] # (Auto) 0.3 (0.3-0.8) 10^3/uL Eos # (Auto) 0.0 (0.0-0.7) 10^3/uL Baso # (Auto) 0.0 (0.0-0.1) 10^3/uL Abs Immat Gran (auto) 0.04 H (0.00-0.03) 10^3/uL Imm/Tot Granulo (auto) 0.3 (0.0-0.5) % Sodium 135 L (136-145) mmol/L Potassium 3.7 (3.5-5.1) mmol/L Chloride 100 (98-107) mmol/L Carbon Dioxide 23.9 (21.0-32.0) mmol/L Anion Gap 14.8 BUN 11.0 (7.0-18.0) mg/dL Creatinine 0.88 (0.55-1.02) mg/dL Est GFR ( Amer) >60 (>=60 mL/min/1.73m^2) Est GFR (Non-Af Amer) >60 (>=60 mL/min/1.73m^2) BUN/Creatinine Ratio 12.5 Glucose 173 H (74-106) mg/dL Calcium 9.2 (8.5-10.1) mg/dL Total Bilirubin 0.5 (0.2-1.0) mg/dL AST 13 L (15-37) U/L ALT 18 (14-59) U/L Alkaline Phosphatase 79 (46-116) U/L Total Protein 8.3 H (6.4-8.2) g/dL Albumin 3.8 (3.4-5.0) g/dL Globulin 4.5 g/dL Albumin/Globulin Ratio 0.8 Discharge Plan Discharge Chief Complaint: Abdominal Pain Clinical Impression: Proctocolitis, Ulcerative colitis, chronic Patient Disposition: Admitted as Observation Time of Disposition Decision: 17:00 Condition: Good Discharge Date/Time: 11/24/24 18:00 Documented by User: Cristhian Moid MD 11/24/24 19:44 HPI - Abdominal Pain General Chief Complaint: Abdominal Pain Stated Complaint: ABDOMINAL PAIN Time Seen by Provider: 11/24/24 14:08 Related Data Home Medications ?Medication ?Instructions ?Recorded ?Confirmed mesalamine 400 mg capsule (with 400 mg PO TID 05/26/24 11/24/24 delayed release tablets inside) Allergies Allergy/AdvReac Type Severity Reaction Status Date / Time metronidazole (From Flagyl) AdvReac Intermediate Abdominal Verified 05/22/24 16:14 Pain PFSH PFSH Medical History (Updated 11/24/24 @ 17:21 by Ciera Naqvi) Hyponatremia ?E87.1 - Hypo-osmolality and hyponatremia (ICD-10) Intractable abdominal pain ?R10.9 - Unspecified abdominal pain (ICD-10) Depression ?F32.A - Depression, unspecified (ICD-10) Colitis ?K52.9 - Noninfective gastroenteritis and colitis, unspecified (ICD-10) Acute proctitis ?K62.89 - Other specified diseases of anus and rectum (ICD-10) 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 of left artificial elbow joint (ICD-10) Scoliosis ?M41.9 - Scoliosis, unspecified (ICD-10) Surgical History Previous back surgery ?Z98.890 - Other specified postprocedural states (ICD-10) Family History Mother Family history of CHF (congestive heart failure) Family history of cancer Family history of hypertension Family history of myocardial infarction Family history of stroke Father Family history of cancer Social History (Updated 11/24/24 @ 18:40 by Emelina Espinoza) Within the past year, how often did you have a drink containing alcohol: monthly or less Within the past year, how often did you have six or more drinks on one occasion: less than monthly Smoking status: Former smoker Second hand tobacco smoke exposure: No Non-prescribed substance use: cannabis (any form) Previous occupational history: Does not Work Known occupational exposures/hazards: No Highest level of school completed/degree received: high school graduate Do you want help with school or training: No Are you now , , , , never or living with a partner: never In a typical week, how many times do you talk on the telephone with family, friends, or neighbors: 3 or more times per week How often do you get together with friends or relatives: 3 or more times per week How often do you attend shinto or sabianism services: never Do you belong to any clubs or organizations such as shinto groups unions, fraternal or athletic groups, or school groups: no Total score: 1 Score interpretation: A score of less than or equal to 1 indicates the most socially isolated. Little interest or pleasure in doing things: not at all Feeling down, depressed, or hopeless: several days Feel stressed/tense/nervous/anxious/difficulty sleeping: not at all Due to disability, difficulty making decisions: No Do you think of yourself as: straight/heterosexual Gender Identity: female Exam Constitutional Vital Signs, click to edit/add: Last Vital Signs Temp 98.1 F 11/24/24 19:29 Pulse 65 11/24/24 19:29 Resp 18 11/24/24 19:29 BP 130/88 11/24/24 19:29 Pulse Ox 98 11/24/24 19:29 O2 Del Method Room Air 11/24/24 19:29 Course Vital Signs Vital signs: Vital Signs Temperature 98.2 F 11/24/24 13:26 Pulse Rate 70 11/24/24 13:26 Respiratory Rate 18 11/24/24 13:26 Blood Pressure 126/70 11/24/24 13:26 Pulse Oximetry 100 11/24/24 13:26 Oxygen Delivery Method Room Air 11/24/24 13:26 Temperature 98.1 F 11/24/24 19:29 Pulse Rate 65 11/24/24 19:29 Respiratory Rate 18 11/24/24 19:29 Blood Pressure 130/88 11/24/24 19:29 Pulse Oximetry 98 11/24/24 19:29 Oxygen Delivery Method Room Air 11/24/24 19:29 MDM - Abdominal Pain MDM Narrative Medical decision making narrative: 49-year-old female presents here with a chief complaint of abdominal pain nausea vomiting. Patient has a history of ulcerative colitis. She states she had a CT scan earlier this week and they did some biopsies. CT scan showed that she had inflammation in the rectum and sigmoid and descending colon. GI from [facility] yesterday and wanted her to be started on 80 mg of prednisone daily. She states she cannot take that much medication and took 40 mg last night and attempted to take some this morning and began to have increased pain nausea vomiting. She is not febrile. Tender to palpation of the abdomen is noted. Upon arrival to the emergency room IV was established patient was given IV fluids pain medicine. She continues to have nausea and pain. Patient's been given 4 of morphine, Zofran, Phenergan and Pepcid. We will also give her Solu- Medrol. Due to patient's history of ulcerative colitis and pain. Will admit the patient for IV steroid therapy. Patient agrees with plan of care. CT scan was shown to have presence of proctocolitis involving rectum sigmoid and descending colon. Patient does have an elevated white blood cell count most likely due to use of steroids. Other blood work was reviewed and showed to be consistent with her normal. Patient is stable to be admitted to the floor. I spoke to Dr. Castro who agreed with plan of care I, Dr Modi, have reviewed the above progress note and course of action in the ER; agree with the above. I have personally gone over history and physical, and discussed disposition and treatment plan with the PA. Lab Data Labs: Lab Results 11/24/24 Range/Units 14:32 WBC 14.5 H (4.0-11.0) 10^3/uL RBC 4.17 L (4.20-5.40) 10^6/uL Hgb 10.9 L (12.0-16.0) g/dL Hct 33.0 L (36.0-48.0) % MCV 79.1 L (81.0-99.0) fL MCH 26.1 L (26.7-34.0) pg MCHC 33.0 (29.9-35.2) g/dL RDW 14.6 (11.0-15.0) % Plt Count 299 (150-450) 10^3/uL MPV 10.1 (9.5-13.5) fL Neut % (Auto) 91.7 H (43.0-75.0) % Lymph % (Auto) 5.3 L (20.5-60.0) % [place] % (Auto) 2.3 (1.7-12.0) % Eos % (Auto) 0.2 L (0.9-7.0) % Baso % (Auto) 0.2 (0.2-2.0) % Neut # (Auto) 13.3 H (1.4-6.5) 10^3/uL Lymph # (Auto) 0.8 L (1.2-3.8) 10^3/uL [place] # (Auto) 0.3 (0.3-0.8) 10^3/uL Eos # (Auto) 0.0 (0.0-0.7) 10^3/uL Baso # (Auto) 0.0 (0.0-0.1) 10^3/uL Abs Immat Gran (auto) 0.04 H (0.00-0.03) 10^3/uL Imm/Tot Granulo (auto) 0.3 (0.0-0.5) % Sodium 135 L (136-145) mmol/L Potassium 3.7 (3.5-5.1) mmol/L Chloride 100 (98-107) mmol/L Carbon Dioxide 23.9 (21.0-32.0) mmol/L Anion Gap 14.8 BUN 11.0 (7.0-18.0) mg/dL Creatinine 0.88 (0.55-1.02) mg/dL Est GFR ( Amer) >60 (>=60 mL/min/1.73m^2) Est GFR (Non-Af Amer) >60 (>=60 mL/min/1.73m^2) BUN/Creatinine Ratio 12.5 Glucose 173 H (74-106) mg/dL Calcium 9.2 (8.5-10.1) mg/dL Total Bilirubin 0.5 (0.2-1.0) mg/dL AST 13 L (15-37) U/L ALT 18 (14-59) U/L Alkaline Phosphatase 79 (46-116) U/L Total Protein 8.3 H (6.4-8.2) g/dL Albumin 3.8 (3.4-5.0) g/dL Globulin 4.5 g/dL Albumin/Globulin Ratio 0.8 Discharge Plan Discharge Chief Complaint: Abdominal Pain Clinical Impression: Proctocolitis, Ulcerative colitis, chronic Patient Disposition: Admitted as Observation Time of Disposition Decision: 17:00 Condition: Good Discharge Date/Time: 11/24/24 18:00
[2024-11-24] MEDS: PROMETHAZINE HCL 12.5 MG in 0.9 % SODIUM CHLORIDE 50 ML 202 MG IV (16:55)
[2024-11-24] MEDS: METHYLPREDNISOLONE SOD SUCC PF 125 MG/2 ML VIAL IVP (16:59)
--- OUTSIDE RECORDS SUMMARY | 2024-11-24 18:09 | XMS_ITS | CCD ---
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[facility]) Insert 1 suppository (12.5 mg total) [...] 12/25/2023 01/27/2024 Discontinued (Therapy completed) peg 3350-sod sulf,epab-tbi-fta 178.7-7.3-0.5 gram recon soln (1 source) Start: 02-27-2024 End: 03-08-2024 peg 3350-sod sulf,yyoa-rxw-utn 178.7-7.3-0.5 gram recon soln Indications: Colitis due to Clostridioides difficile Take one container twice as directed by scheduled instructions 2 each 02/27/2024 03/08/2024 Discontinued penicillin v potassium 250 mg oral tablet (2 sources) Start: 10-18-2023 End: 11-09-2024 Penicillin V Potassium 250 mg tablet Discontinued 500 MG PO Every 6 hours 40 7 October 18, 2023 1:00am November 09, 2024 11:57am polyethylene glycol 3350 031655 mg / potassium chloride 2970 mg / sodium bicarbonate 6740 mg / sodium chloride 5860 mg / sodium sulfate 18666 mg powder for oral solution (1 source) [...] Reference Range Facility [facility] 11-21-2024 ---- Specimen: [id number] Received: 11/21/24 Status: LINO Juarez Num: [id number] Spec Type: Surgical Subm Dr: Belinda Medina MD Tissues: A Small Intestine - Biopsy/Polyp (SMALL BOWEL BX) B Colon Biopsy (RIGHT COLON BX) C Colon Biopsy (TRANSVERSE COLON BX) D Colon Biopsy (DESCENDING COLON BX) E Colon Biopsy (SIGMOID COLON BX) F Colon Biopsy (RECTAL BX) Procedures: /Bri, Gross/Micro L4/6 Age/ Patient Sex Location Account Attending Physician Kelli Lake 49/F [id number] Belinda Medina MD SPEC NUM: [id number] RECD: 11/21/24 STATUS: LINO JUAREZ NUM: [id number] CHANNING: 11/21/24 [facility] DR: Belinda Medina MD ENTERED: 11/21/24 [facility] DR: SARA TYPE: Surgical DEPT: S ENTERED BY: [id number] RECV BY: [id number] ORDERED: HE/15, Gross/Micro L4/6 ORDERED: HE/15, Gross/Micro [...] are identified E. Sigmoid colon biopsy: Specimen: [id number] Received: 11/21/24 Status: LINO Juarez Num: [id number] Spec Type: Surgical Subm Dr: Belinda Medina MD Tissues: A Small Intestine - Biopsy/Polyp (SMALL BOWEL BX) B Colon Biopsy (RIGHT COLON BX) C Colon Biopsy (TRANSVERSE COLON BX) D Colon Biopsy (DESCENDING COLON BX) E Colon Biopsy (SIGMOID COLON BX) F Colon Biopsy (RECTAL BX) Procedures: /, Gross/Micro /6 Patient: Kelli Lake [id number] (Continued) Specimen: [id number] Received: 11/21/24 (Continued) Pathological Diagnosis (Continued) Signed (signature on file) Rubin Strickland MD 11/22/24 1400 Specimen: [id number] Received: 11/21/24 Status: LINO Juarez Num: [id number] Spec Type: Surgical Subm Dr: Belinda Medina MD Tissues: A Small Intestine - Biopsy/Polyp (SMALL BOWEL BX) B Colon Biopsy (RIGHT COLON BX) C Colon Biopsy (TRANSVERSE COLON BX) D Colon Biopsy (DESCENDING COLON BX) E Colon Biopsy (SIGMOID COLON BX) F Colon Biopsy (RECTAL BX) Procedures: /, Gross/Micro L4/6 Patient: VenkateshgloriaKelli Jeannette [id number] (Continued) Specimen: [id number] Received: 11/21/24 (Continued) Pathological Diagnosis (Continued) ? [...] submitted in a single cassette. (1, ns, [id number]) JG Part B is received in formalin labeled with the patients name, date of , and right colon BX are 2 edmondson-forrester, focally erythematous, friable, 0.4 and 0.5 cm in greatest dimension tissue strips. (more content not included)... Normal [facility] CBC AND AUTO DIFFon 05-31-20 24 ABSOLUTE BASOPHIL 0.0 X10E9/L Normal 0.0-0.2 [facility] Comment on above: Performed By: #### C ROMERO, CMP #### [facility] ([id number]) [address] [place] [address] 89244 ABSOLUTE NEUTROPHIL 8.6 X10E9/L High 1.5-6.6 [facility] Comment on above: Performed By: #### C ROMERO, CMP #### [facility] ([id number]) [address] [place] [address] 37111 Basophils/100 WBC (Bld) 0.2 % Normal [facility] Comment on above: Performed By: #### C ROMERO, CMP #### [facility] ([id number]) [address] [place] [address] 38271 Eosinophils (Bld) [#/Vol] 0.0 10*3/uL Normal 0.0-0.4 [facility] Comment on above: Performed By: #### C BCA, CMP #### [facility] ([id number]) [address] [place] [address] 95272 Eosinophils/100 WBC (Bld) 0.1 % Normal [facility] Comment on above: Performed By: #### C BCA, CMP #### [facility] ([id number]) [address] [place] [address] 40933 Erythrocyte distribution width (RBC) [Ratio] 15.5 % High 11.5-15.0 [facility] Comment on above: Performed By: #### C BCA, CMP #### [facility] ([id number]) [address] [place] [address] 01427 Hematocrit (Bld) [Volume fraction] 35.2 % Normal 35-47 [facility] Comment on above: Performed By: #### C BCA, CMP #### [facility] ([id number]) [address] [place] [address] 79791 Hemoglobin (Bld) [Mass/Vol] 11.3 g/dL Low 11.7-15.5 [facility] Comment on above: Performed By: #### C BCA, CMP #### [facility] ([id number]) [address] [place] [address] 26970 Lymphocytes (Bld) [#/Vol] 1.3 10*3/uL Normal 1.0-3.5 [facility] Comment on above: Performed By: #### C BCA, CMP #### [facility] ([id number]) [address] [place] [address] 72065 Lymphocytes/100 WBC (Bld) 11.4 % Normal [facility] Comment on above: Performed By: #### C BCA, CMP #### [facility] ([id number]) [address] [place] [address] 26282 MCH (RBC) [Entitic mass] 24.4 pg Low 27-34 [facility] Comment on above: Performed By: #### C BCA, CMP #### [facility] ([id number]) [address] [place] [address] 06167 MCHC (RBC) [Mass/Vol] 32.1 g/dL Normal 32-36 [facility] Comment on above: Performed By: #### C BCA, CMP #### [facility] ([id number]) [address] [place] [address] 93480 MCV (RBC) [Entitic vol] 76 fL Low 80-100 [facility] Comment on above: Performed By: #### C ROMERO, CMP #### [facility] ([id number]) [address] [place] [address] 28699 Monocytes (Bld) [#/Vol] 1.1 10*3/uL High 0-0.9 [facility] Comment on above: Performed By: #### C ROMERO, CMP #### [facility] ([id number]) [address] [place] [address] 77277 Monocytes/100 WBC (Bld) 10.2 % Normal [facility] Comment on above: Performed By: #### C ROMERO, CMP #### [facility] ([id number]) [address] [place] [address] 36761 Neutrophils/100 WBC (Bld) 78.1 % Normal [facility] Comment on above: Performed By: #### C ROMERO, CMP #### [facility] ([id number]) [address] [place] [address] 51509 Platelet mean volume (Bld) [Entitic vol] 7.7 fL Normal 7-12 [facility] Comment on above: Performed By: #### C ROMERO, CMP #### [facility] ([id number]) [address] [place] [address] 36631 Platelets (Bld) [#/Vol] 300 10*3/uL Normal 150-450 [facility] Comment on above: Performed By: #### C BCA, CMP #### [facility] ([id number]) [address] [place] [address] 81453 RBC COUNT 4.62 X10E12/L Normal 3.80-5.20 [facility] Comment on above: Performed By: #### C BCA, CMP #### [facility] ([id number]) [address] [place] [address] 16011 WBC (Bld) [#/Vol] 11.0 10*3/uL Normal 4.0-11.0 [facility] Comment on above: Performed By: #### C BCA, CMP #### [facility] ([id number]) [address] [place] [address] 30640 COMPREHENSIVE METABOLIC PANE Hoang 05-31-2024 Albumin [Mass/Vol] 3.9 g/dL Normal 3.2-5.3 [facility] Comment on above: Performed By: #### C BCA, CMP #### [facility] ([id number]) [address] [place] [address] 50153 ALP [Catalytic activity/Vol] 44 U/L Normal 39-130 [facility] Comment on above: Performed By: #### C BCA, CMP #### [facility] ([id number]) [address] [place] [address] 49362 ALT [Catalytic activity/Vol] 13 U/L Normal 0-31 [facility] Comment on above: Performed By: #### C BCA, CMP #### [facility] ([id number]) [address] [place] [address] 23917 Anion gap [Moles/Vol] 7 mmol/L Normal 5-15 [facility] Comment on above: Performed By: #### C BCA, CMP #### [facility] ([id number]) [address] [place] [address] 98868 AST [Catalytic activity/Vol] 15 U/L Normal 0-41 [facility] Comment on above: Performed By: #### C BCA, CMP #### [facility] ([id number]) [address] [place] [address] 13741 Bilirubin [Mass/Vol] 1.1 mg/dL Normal 0.3-1.2 [facility] Comment on above: Performed By: #### C BCA, CMP #### [facility] ([id number]) [address] [place] [address] 35111 Calcium [Mass/Vol] 8.5 mg/dL Normal 8.5-10.5 [facility] Comment on above: Performed By: #### C BCA, CMP #### [facility] ([id number]) [address] [place] [address] 40684 Chloride [Moles/Vol] 93 mmol/L Low 98-109 [facility] Comment on above: Performed By: #### C BCA, CMP #### [facility] ([id number]) [address] [place] [address] 86574 CO2 [Moles/Vol] 28 mmol/L Normal 22-32 [facility] Comment on above: Performed By: #### C BCA, CMP #### [facility] ([id number]) [address] [place] [address] 06794 Creatinine [Mass/Vol] 0.84 mg/dL Normal 0.40-1.00 [facility] Comment on above: Result Comment: METH OD TRACEABLE TO IDMS STANDARD Performed By: #### C ROMERO, CMP #### [facility] ([id number]) [address] [place] [address] 32808 GFR/1.73 sq M.predicted among non-blacks MDRD (S/P/Bld) [Vol rate/Area] 86 mL/min/{1.73_m2} Normal >59 [facility] Comment on above: Result Comment: Reported eGFR is based on the CKD-EPI 2020 equation that does not use a race coefficient. Performed By: #### C BCA, CMP #### [facility] ([id number]) [address] [place] [address] 01744 Glucose [Mass/Vol] 110 mg/dL High 65-99 [facility] Comment on above: Performed By: #### C BCA, CMP #### [facility] ([id number]) [address] [place] [address] 22742 Potassium [Moles/Vol] 3.1 mmol/L Low 3.5-5.0 [facility] Comment on above: Performed By: #### C BCA, CMP #### [facility] ([id number]) [address] [place] [address] 63378 Protein [Mass/Vol] 7.2 g/dL Normal 6.0-8.0 [facility] Comment on above: Performed By: #### C BCA, CMP #### [facility] ([id number]) [address] [place] [address] 77614 Sodium [Moles/Vol] 128 mmol/L Low 134-146 [facility] Comment on above: Performed By: #### C BCA, CMP #### [facility] ([id number]) [address] [place] [address] 16810 Urea nitrogen [Mass/Vol] 19 mg/dL Normal 5-23 [facility] Comment on above: Performed By: #### C BCA, CMP #### [facility] ([id number]) [address] [place] [address] ABDOMEN AND PELVIS WO CON Ton [...] Carlos Escobedo on 05/31/2024 10:00 AM Normal [facility] Surgical Pathologyon 17- 024 Surgical Pathology Normal [facility] Comment on above: Result Comment: [facility] [address] [place] [address] Surgical Pathology Consultation Patient Name:KELLI LAKE:1975 (Age: 48)Gender:FTaken:4Reported:4Physician(s):Geovanni Rivers MD ([phone])Copy To: Rec. #:[id number]: #[id number] Final Pathologic Diagnosis 1. Transverse colon biopsy: [...] Out ao/4Alian Camara MD Interpretation performed at [facility], [address] [place] [address], License number: [id number]. Clinical History Colitis. Gross Description 1. Received in formalin labeled ALEKSANDRA, #1: Transverse BX are 3 edmondson bits/strips of soft tissue, ranging from 0.5-0.9 cm in greatest dimension. Filtered and submitted in a single cassette. (1, ns, [id number], m7) MG 2. Received in formalin labeled ALEKSANDRA, #2: Sigmoid are 5 edmondson bits of soft tissue, ranging from 0.2-0.3 cm in greatest dimension. Filtered and submitted in a single cassette. (1, ns, [id number], m7) MG mj/03/08/2024O Specimen(s) Received 1: Transverse colon biopsies 2: Sigmoid colon biopsy Fee Codes(s): 1; 29061 2; 80680 CBC AND AUTO DIFFon 02-09- 24 ABSOLUTE BASOPHIL 0.0 X10E9/L Normal 0.0-0.2 [facility] Comment on above: Performed By: #### Marguerite JASSO, 71032-9, CMP, 3040-3 #### [facility] ([id number]) [address] [place] [address] 09612 ABSOLUTE NEUTROPHIL 11.5 X10E9/L High 1.5-6.6 [facility] Comment on above: Performed By: #### Marguerite JASSO, 26664-4, CMP, 0-3 #### [facility] ([id number]) [address] [place] [address] 05174 Basophils/100 WBC (Bld) 0.2 % Normal [facility] Comment on above: Performed By: #### Marguerite JASSO, 71818-6, CMP, 3040-3 #### [facility] ([id number]) [address] [place] [address] 46252 Eosinophils (Bld) [#/Vol] 0.0 10*3/uL Normal 0.0-0.4 [facility] Comment on above: Performed By: #### Marguerite JASSO, 56844-4, CMP, 0-3 #### [facility] ([id number]) [address] [place] [address] 57145 Eosinophils/100 WBC (Bld) 0.1 % Normal [facility] Comment on above: Performed By: #### Marguerite JASSO, 65665-7, CMP, 3040-3 #### [facility] ([id number]) [address] [place] [address] 67719 Erythrocyte distribution width (RBC) [Ratio] 19.1 % High 11.5-15.0 [facility] Comment on above: Performed By: #### Marguerite JASSO, 69044-2, CMP, 3040-3 #### [facility] ([id number]) [address] [place] [address] 94520 Hematocrit (Bld) [Volume fraction] 36.4 % Normal 35-47 [facility] Comment on above: Performed By: #### Marguerite JASSO, 26491-8, CMP, 3040-3 #### [facility] ([id number]) [address] [place] [address] 08079 Hemoglobin (Bld) [Mass/Vol] 12.2 g/dL Normal 11.7-15.5 [facility] Comment on above: Performed By: #### Marguerite JASSO, 71634-6, CMP, 0-3 #### [facility] ([id number]) [address] [place] [address] 01383 Lymphocytes (Bld) [#/Vol] 0.7 10*3/uL Low 1.0-3.5 [facility] Comment on above: Performed By: #### Marguerite JASSO, 99800-5, CMP, 3040-3 #### [facility] ([id number]) [address] [place] [address] 76860 Lymphocytes/100 WBC (Bld) 5.7 % Normal [facility] Comment on above: Performed By: #### Marguerite JASSO, 38255-5, CMP, 3040-3 #### [facility] ([id number]) [address] [place] [address] 41638 MCH (RBC) [Entitic mass] 24.9 pg Low 27-34 [facility] Comment on above: Performed By: #### Marguerite JASSO, 64568-0, CMP, 3040-3 #### [facility] ([id number]) [address] [place] [address] 94014 MCHC (RBC) [Mass/Vol] 33.5 g/dL Normal 32-36 [facility] Comment on above: Performed By: #### Marguerite JASSO, 69981-7, CMP, 3040-3 #### [facility] ([id number]) [address] [place] [address] 04562 MCV (RBC) [Entitic vol] 74 fL Low 80-100 [facility] Comment on above: Performed By: #### Marguerite JASSO, 70469-4, CMP, 3040-3 #### [facility] ([id number]) [address] [place] [address] 22010 Monocytes (Bld) [#/Vol] 0.4 10*3/uL Normal 0-0.9 [facility] Comment on above: Performed By: #### Marguerite BCA, 99385-4, CMP, 3040-3 #### [facility] ([id number]) [address] [place] [address] 06446 Monocytes/100 WBC (Bld) 3.2 % Normal [facility] Comment on above: Performed By: #### Marguerite BCA, 83646-2, CMP, 3040-3 #### [facility] ([id number]) [address] [place] [address] 47165 Neutrophils/100 WBC (Bld) 90.8 % Normal [facility] Comment on above: Performed By: #### Marguerite BCA, 81275-0, CMP, 3040-3 #### [facility] ([id number]) [address] [place] [address] 41953 Platelet mean volume (Bld) [Entitic vol] 8.1 fL Normal 7-12 [facility] Comment on above: Performed By: #### C BCA, 68163-8, CMP, 3040-3 #### [facility] ([id number]) [address] [place] [address] 21777 Platelets (Bld) [#/Vol] 435 10*3/uL Normal 150-450 [facility] Comment on above: Performed By: #### C BCA, 54973-6, CMP, 3040-3 #### [facility] ([id number]) [address] [place] [address] 00857 RBC COUNT 4.90 X10E12/L Normal 3.80-5.20 [facility] Comment on above: Performed By: #### Marguerite BCA, 05974-0, CMP, 3040-3 #### [facility] ([id number]) [address] [place] [address] 49947 WBC (Bld) [#/Vol] 12.6 10*3/uL High 4.0-11.0 [facility] Comment on above: Performed By: #### C BCA, 88441-9, CMP, 3040-3 #### [facility] ([id number]) [address] [place] [address] 93845 COMPREHENSIVE METABOLIC PANE Hoang 02-10-2024 Albumin [Mass/Vol] 4.1 g/dL Normal 3.2-5.3 [facility] Comment on above: Performed By: #### Marguerite BCA, 28764-2, CMP, 3040-3 #### [facility] ([id number]) [address] [place] [address] 57504 ALP [Catalytic activity/Vol] 53 U/L Normal 39-130 [facility] Comment on above: Performed By: #### C BCA, 84999-0, CMP, 3040-3 #### [facility] ([id number]) [address] [place] [address] 25320 ALT [Catalytic activity/Vol] 10 U/L Normal 0-31 [facility] Comment on above: Performed By: #### C BCA, 26967-0, CMP, 3040-3 #### [facility] ([id number]) [address] [place] [address] 55021 Anion gap [Moles/Vol] 8 mmol/L Normal 5-15 [facility] Comment on above: Performed By: #### C BCA, 28426-4, CMP, 3040-3 #### [facility] ([id number]) [address] [place] [address] 55718 AST [Catalytic activity/Vol] 17 U/L Normal 0-41 [facility] Comment on above: Performed By: #### Marguerite BCA, 08199-2, CMP, 3040-3 #### [facility] ([id number]) [address] [place] [address] 71175 Bilirubin [Mass/Vol] 1.0 mg/dL Normal 0.3-1.2 [facility] Comment on above: Performed By: #### Marguerite BCA, 94990-4, CMP, 3040-3 #### [facility] ([id number]) [address] [place] [address] 28114 Calcium [Mass/Vol] 8.5 mg/dL Normal 8.5-10.5 [facility] Comment on above: Performed By: #### C BCA, 11416-3, CMP, 3040-3 #### [facility] ([id number]) [address] [place] [address] 60422 Chloride [Moles/Vol] 99 mmol/L Normal 98-109 [facility] Comment on above: Performed By: #### Marguerite BCA, 95087-0, CMP, 3040-3 #### [facility] ([id number]) [address] [place] [address] 84355 CO2 [Moles/Vol] 24 mmol/L Normal 22-32 [facility] Comment on above: Performed By: #### C BCA, 42625-4, CMP, 3040-3 #### [facility] ([id number]) [address] [place] [address] 56695 Creatinine [Mass/Vol] 0.71 mg/dL Normal 0.40-1.00 [facility] Comment on above: Result Comment: METH OD TRACEABLE TO IDMS STANDARD Performed By: #### C ROMERO, 55350-6, CMP, 0-3 #### [facility] ([id number]) [address] [place] [address] 19292 eGFR (CKD-EPI) NON-RACE DEPENDENT >90 Normal >59 [facility] Comment on above: Result Comment: Reported eGFR is based on the CKD-EPI 2020 equation that does not use a race coefficient. Performed By: #### C BCA, 84247-7, CMP, 3040-3 #### [facility] ([id number]) [address] [place] [address] 51708 Glucose [Mass/Vol] 114 mg/dL High 65-99 [facility] Comment on above: Performed By: #### C BCA, 15514-1, CMP, 0-3 #### [facility] ([id number]) [address] [place] [address] 01181 Potassium [Moles/Vol] 3.7 mmol/L Normal 3.5-5.0 [facility] Comment on above: Performed By: #### C BCA, 20848-1, CMP, 3040-3 #### [facility] ([id number]) [address] [place] [id number] Protein [Mass/Vol] 7.6 g/dL Normal 6.0-8.0 [facility] Comment on above: Performed By: #### C BCA, 95052-7, CMP, 3040-3 #### [facility] ([id number]) [address] [place] [address]46 Sodium [Moles/Vol] 131 mmol/L Low 134-146 [facility] Comment on above: Performed By: #### C ROMERO, 67759-4, CMP, 3040-3 #### [facility] ([id number]) [address] [place] [address] 38145 Urea nitrogen [Mass/Vol] 11 mg/dL Normal 5-23 [facility] Comment on above: Performed By: #### C ROMERO, 33380-3, CMP, 3040-3 #### [facility] ([id number]) [address] [place] [address] HCG ( test) Ql (U)o n 02-10-2024 Beta HCG ( test) Ql (U) Negative Normal NEG [facility] Comment on above: Performed By: #### 2 106-3 #### [facility] ([id number]) [address] [place] [id number] LIPASEon 02-10-2024 Lipase [Catalytic activity/Vol] 42 U/L High 17-40 [facility] Comment on above: Performed By: #### C ROMERO, 62613-5, CMP, 3040-3 #### [facility] ([id number]) [address] [place] [id number] Lactate (P caroline) [Moles/Vol]o n 02-10-2024 LACTATE W/REFLEX 1.1 mmol/L Normal 0.4-2.0 [facility] Comment on above: Result Comment: Result did not trigger repeat Lactate, re-order if needed. Performed By: #### C BCA, 72181-4, CMP, 3040-3 #### [facility] ([id number]) [address] [place] [address], [place] [address] URN MACROSCOPIC NURon 2023 BILIRUBIN MEÑO Small Abnormal NEG [facility] Comment on above: Performed By: #### N UM #### [facility] ([id number]) [address] [place] [address] BLOOD/HGB MEÑO Negative Normal NEG [facility] Comment on above: Performed By: #### N UM #### [facility] ([id number]) [address] [place] [address] GLUCOSE MEÑO Negative Normal NEG [facility] Comment on above: Performed By: #### N UM #### [facility] ([id number]) [address] [place] [address] KETONES MEÑO 80 mg/dL Abnormal NEG [facility] Comment on above: Performed By: #### N UM #### [facility] ([id number]) [address] [place] [address] [place] [address] LEUKOCYTE ESTERASE MEÑO Negative Normal NEG [facility] Comment on above: Performed By: #### N UM #### [facility] ([id number]) [address] [place] [address] [place] [address] NITRITE MEÑO Negative Normal NEG [facility] Comment on above: Performed By: #### N UM #### [facility] ([id number]) [address] [place] [address] [place] [address] PH MEÑO 6.0 Normal 5.0-8.5 [facility] Comment on above: Performed By: #### N UM #### [facility] ([id number]) [address] [place] [address] PROTEIN MEÑO 30 mg/dL Abnormal NEG [facility] Comment on above: Performed By: #### N UM #### [facility] ([id number]) [address] [place] [address] [place] [address] SPECIFIC GRAVITY MEÑO 1.025 Normal 1.003-1.035 [facility] Comment on above: Performed By: #### N UM #### [facility] ([id number]) [address] [place] [address], [place] [address] UROBILINOGEN MEÑO 0.2 eu/dL Normal <1.1 [facility] Comment on above: Performed By: #### N UM #### [facility] ([id number]) [address] [place] [address], [place] [address] Multiple labsOrdered By: Stacia Villa on 01-16-2024 [facility] BASIC METABOLIC PANLon 01-06 Anion gap [Moles/Vol] 8 mmol/L Normal 5-15 [facility] Comment on above: Performed By: #### B MP #### [facility] ([id number]) [address], [address] [place] [address] Calcium [Mass/Vol] 8.6 mg/dL Normal 8.5-10.5 [facility] Comment on above: Performed By: #### B MP #### [facility] ([id number]) [address] [place] [address] Chloride [Moles/Vol] 105 mmol/L Normal 98-109 [facility] Comment on above: Performed By: #### B MP #### [facility] ([id number]) [address] [place] [address] CO2 [Moles/Vol] 25 mmol/L Normal 22-32 [facility] Comment on above: Performed By: #### B MP #### [facility] ([id number]) [address] [place] [address] Creatinine [Mass/Vol] 0.74 mg/dL Normal 0.40-1.00 [facility] Comment on above: Result Comment: METH OD TRACEABLE TO IDMS STANDARD Performed By: #### B MP #### [facility] ([id number]) [address] [place] [address] eGFR (CKD-EPI) NON-RACE DEPENDENT >90 Normal >59 [facility] Comment on above: Result Comment: Reported eGFR is based on the CKD-EPI 2020 equation that does not use a race coefficient. Performed By: #### B MP #### [facility] ([id number]) [address] [place] [address] Glucose [Mass/Vol] 87 mg/dL Normal 65-99 [facility] Comment on above: Performed By: #### B MP #### [facility] ([id number]) [address] [place] [address] Potassium [Moles/Vol] 3.9 mmol/L Normal 3.5-5.0 [facility] Comment on above: Performed By: #### B MP #### [facility] ([id number]) [address] [place] [address] Sodium [Moles/Vol] 138 mmol/L Normal 134-146 [facility] Comment on above: Performed By: #### B MP #### [facility] ([id number]) [address] [place] [address] Urea nitrogen [Mass/Vol] 5 mg/dL Normal 5-23 [facility] Comment on above: Performed By: #### B MP #### [facility] ([id number]) [address] [place] [address] Basic Metabolic Panelon 05- Anion gap [Moles/Vol] 8 mmol/L 5 - 15 mmol/L [facility] Calcium [Mass/Vol] 8.6 mg/dL 8.5 - 10. 5 mg/dL [facility] Chloride [Moles/Vol] 105 mmol/L 98 - 109 mmol/L [facility] CO2 [Moles/Vol] 25 mmol/L 22 - 32 mmol/L [facility] Creatinine [Mass/Vol] 0.74 mg/dL 0.40 - 1.00 mg/dL [facility] Comment on above: METHOD TRACEABLE TO [facility] STANDARD eGFR (CKD-EPI)non-race dependent - PINF [facility] Comment on above: Reported eGFR is based on the CKD-EPI 2020 equation that does not use a race coefficient. Glucose [Mass/Vol] 87 mg/dL 65 - 99 mg/dL [facility] Potassium [Moles/Vol] 3.9 mmol/L 3.5 - 5.0 mmol/L [facility] Sodium [Moles/Vol] 138 mmol/L 134 - 146 mmol/L [facility] Urea nitrogen [Mass/Vol] 5 mg/dL 5 - 23 mg/dL [facility] INFLUENZA A AND B [facility]on 08[facility] Normal [facility] Comment on above: Result Comment: Nega tive for Flu A protein angiten. Infection due to Flu A cannot be ruled out. Flu A angiten in the sample may be below the detection limit of the test. Performed By: #### I NFLUAB #### [facility] [address] [place] [address] Jessieyamile Brannonen INFLUBNEGH SEE BELOW Normal [facility] Comment on above: Result Comment: Nega tive for Flu B protein antigen. Infection due to Flu B cannot be ruled out. Flu B antigen in the sample may be below the detection limit of the test. Performed By: #### I NFLUAB #### [facility] [address] [place] [address] [facility] Negative Normal NEGATIVE SEE COMMENT [facility] Comment on above: Performed By: #### I NFLUAB #### [facility] [address] [place] [address] Jessie Oksana INFLUENZA B AG Negative Normal NEGATIVE SEE COMMENT [facility] Comment on above: Performed By: #### I NFLUAB #### [facility] [address] [place] [address] Jessie Gandhi INTERNAL CONTROLS Within Normal Limits Normal Wi thin Normal Limits [facility] Comment on above: Performed By: #### I NFLUAB #### [facility] [address] [address] Jessie Gandhi Vital Signs Date Time Vital Sign Value Performing Clinician Facility 11-21-2024 11:05-0400 Diastolic blood pressure 77 mm[Hg] Geovanni Berniehas DO Work Phone: [facility] 11-21-2024 11:05-0400 Heart rate 62 /min Geovanni Yuhas DO Work Phone: [facility] 11-21-2024 11:05-0400 Respiratory rate 16 /min Geovanni Yuhas DO Work Phone: [facility] 11-21-2024 11:05-0400 SaO2% (BldA) [Mass fraction] 100 % Geovanni Yuhas DO Work Phone: [facility] 11-21-2024 11:05-0400 Systolic blood pressure 117 mm[Hg] Geovanni Yuhas DO Work Phone: [facility] 11-21-2024 08:21-0400 Body height 154.94 cm Geovanni Yuhas DO Work Phone: [facility] 11-21-2024 08:21-0400 Body weight 61.23 kg Geovanni Yuhas DO Work Phone: [facility] 06-27-2024 16:39-0500 Diastolic blood pressure 70 mm[Hg] Geovanni Yuhas DO Work Phone: [facility] [employer] [facility] 06-27-2024 16:39-0500 Systolic blood pressure 96 mm[Hg] [facility] 06-27-2024 15:58-0500 Body height 154.9 cm Geovanni Yuhas DO Work Phone: [facility] [employer] [facility] 06-27-2024 15:58-0500 Body mass index (BMI) [Ratio] 24.75 kg/m2 Geovanni Yuhas DO Work Phone: [facility] [employer] [facility] 06-27-2024 15:58-0500 Body temperature 98.1 [degF] Geovanni Gavirias DO Work Phone: [facility] [employer] [facility] 06-27-2024 15:58-0500 Body weight 59.42 kg Geovanni Gavirias DO Work Phone: [facility] [employer] [facility] 06-27-2024 15:58-0500 Heart rate 72 /min Geovanni Gavirias DO Work Phone: [facility] [employer] [facility] 06-27-2024 15:58-0500 Respiratory rate 18 /min Geovanni Rivers DO Work Phone: [facility] 06-27-2024 15:58-0500 SaO2% (BldA) [Mass fraction] 98 % Geovanni Rivers DO Work Phone: [facility] 05-31-2024 16:37-0400 Body height 154.9 cm Geovanni Rivers DO Work Phone: [facility] 05-31-2024 16:37-0400 Body mass index (BMI) [Ratio] 23.83 kg/m2 Geovanni Rivers DO Work Phone: [facility] 05-31-2024 16:37-0400 Body temperature 98.1 [degF] Geovanni Rivers DO Work Phone: [facility] 05-31-2024 16:37-0400 Body weight 57.2 kg Geovanni Rivers DO Work Phone: [facility] 05-31-2024 16:37-0400 Diastolic blood pressure 60 mm[Hg] Geovanni Gavirias DO Work Phone: [facility] 05-31-2024 16:37-0400 Heart rate 79 /min Geovanni Rivers DO Work Phone: [facility] 05-31-2024 16:37-0400 SaO2% (BldA) [Mass fraction] 97 % Geovanni Gavirias DO Work Phone: [facility] [employer] [facility] 05-31-2024 16:37-0400 Systolic blood pressure 120 mm[Hg] Geovanni Gavirias DO Work Phone: [facility] 04-19-2024 14:37-0400 Diastolic blood pressure 48 mm[Hg] Geovanni Gibbshas DO Work Phone: [facility] 04-19-2024 14:37-0400 Systolic blood pressure 100 mm[Hg] Geovanni Gavirias DO Work Phone: [facility] 04-19-2024 14:34-0400 Body height 154.9 cm Geovanni Gavirias DO Work Phone: [facility] 04-19-2024 14:34-0400 Body mass index (BMI) [Ratio] 25.47 kg/m2 Geovanni Gavirias DO Work Phone: [facility] 04-19-2024 14:34-0400 Body temperature 97.81 [degF] Geovanni Gavirias DO Work Phone: [facility] 04-19-2024 14:34-0400 Body weight 61.15 kg Geovanni Gavirias DO Work Phone: [facility] [employer] [facility] 04-19-2024 14:34-0400 Heart rate 82 /min Geovanni Gavirias DO Work Phone: [facility] 04-19-2024 14:34-0400 Respiratory rate 18 /min Geovanni Gavirias DO Work Phone: [facility] 04-19-2024 14:34-0400 SaO2% (BldA) [Mass fraction] 99 % Geovanni Gavirias DO Work Phone: [facility] 03-16-2024 11:17-0400 Body height 154.9 cm Geovanni Gavirias DO Work Phone: [facility] 03-16-2024 11:17-0400 Body mass index (BMI) [Ratio] 24.96 kg/m2 Geovanni Rivers DO Work Phone: [facility] 03-16-2024 11:17-0400 Body temperature 98.2 [degF] Geovanni Gavirias DO Work Phone: [facility] 03-16-2024 11:17-0400 Body weight 59.92 kg Geovanni Gavirias DO Work Phone: [facility] 03-16-2024 11:17-0400 Diastolic blood pressure 80 mm[Hg] Geovanni Rivers DO Work Phone: [facility] 03-16-2024 11:17-0400 Heart rate 71 /min Geovanni Rivers DO Work Phone: [facility] 03-16-2024 11:17-0400 SaO2% (BldA) [Mass fraction] 98 % Geovanni Rivers DO Work Phone: [facility] 03-16-2024 11:17-0400 Systolic blood pressure 100 mm[Hg] Geovanni Rivers DO Work Phone: [facility] 03-07-2024 12:07-0400 Body height 156.8 cm Pmh 1 [facility] 03-07-2024 12:07-0400 Body mass index (BMI) [Ratio] 24.34 kg/m2 Pmh 1 [facility] 03-07-2024 12:07-0400 Body weight 59.88 kg Pmh 1 [facility] 02-08-2024 10:25-0400 Diastolic blood pressure 68 mm[Hg] Geovanni Rivers DO Work Phone: [facility] 02-08-2024 10:25-0400 Systolic blood pressure 94 mm[Hg] Geovanni Gavirias DO Work Phone: [facility] 02-08-2024 09:35-0400 Body height 154.9 cm Geovanni Rivers DO Work Phone: [facility] 02-08-2024 09:35-0400 Body mass index (BMI) [Ratio] 25.07 kg/m2 Geovanni Rivers DO Work Phone: [facility] 02-08-2024 09:35-0400 Body temperature 98.1 [degF] Geovanni Rivers DO Work Phone: [facility] 02-08-2024 09:35-0400 Body weight 60.19 kg Geovanni Rivers DO Work Phone: [facility] 02-08-2024 09:35-0400 Heart rate 78 /min Geovanni Rivers DO Work Phone: [facility] 02-08-2024 09:35-0400 Respiratory rate 18 /min Geovanni Rivers DO Work Phone: [facility] 02-08-2024 09:35-0400 SaO2% (BldA) [Mass fraction] 96 % Geovanni Rivers DO Work Phone: [facility] 01-27-2024 14:41-0400 Body height 154.9 cm Cande Rand APRN-HOME SUPPORT WORKER Work Phone: [facility] 01-27-2024 14:41-0400 Body mass index (BMI) [Ratio] 26.07 kg/m2 Cande Rand OILER BANDER-HOME SUPPORT WORKER Work Phone: [facility] 01-27-2024 14:41-0400 Body temperature 97.3 [degF] Cande Rand APRN-HOME SUPPORT WORKER Work Phone: [facility] 01-27-2024 14:41-0400 Body weight 62.6 kg Cande Rand APRN-HOME SUPPORT WORKER Work Phone: [facility] 01-27-2024 14:41-0400 Diastolic blood pressure 60 mm[Hg] Cande Rand APRN-HOME SUPPORT WORKER Work Phone: [facility] 01-27-2024 14:41-0400 Heart rate 70 /min Cande VU Work Phone: [facility] [employer] [facility] 01-27-2024 14:41-0400 Respiratory rate 12 /min Cande BACKHOME SUPPORT WORKER Work Phone: [facility] 01-27-2024 14:41-0400 SaO2% (BldA) [Mass fraction] 99 % Cande UV Work Phone: [facility] 01-27-2024 14:41-0400 Systolic blood pressure 112 mm[Hg] Cande BACKHOME SUPPORT WORKER Work Phone: [facility] 01-07-2024 09:36-0400 Body height 154.9 cm Cande BACKHOME SUPPORT WORKER Work Phone: [facility] 01-07-2024 09:36-0400 Body mass index (BMI) [Ratio] 27.21 kg/m2 Cande BACKHOME SUPPORT WORKER Work Phone: [facility] 01-07-2024 09:36-0400 Body temperature 98.29 [degF] Cande VU Work Phone: [facility] 01-07-2024 09:36-0400 Body weight 65.32 kg Cande BACKHOME SUPPORT WORKER Work Phone: [facility] 01-07-2024 09:36-0400 Diastolic blood pressure 62 mm[Hg] Cande BACKHOME SUPPORT WORKER Work Phone: [facility] 01-07-2024 09:36-0400 Heart rate 69 /min Cande VU Work Phone: [facility] 01-07-2024 09:36-0400 SaO2% (BldA) [Mass fraction] 96 % Cande BACKHOME SUPPORT WORKER Work Phone: [facility] 01-07-2024 09:36-0400 Systolic blood pressure 102 mm[Hg] Cande Rand OILER BANDER-HOME SUPPORT WORKER Work Phone: [facility] Encounters Encounter Date Encounter Type Care Provider Facility Start: 11-21-2024 Non-patient / Non-visit Geovanni parada DO Work Phone: [facility] Work Phone: Start: 11-21-2024 End: 11-21-2024 Admission to same day surgery center Geovanni Rivers DO Work Phone: [facility] Work Phone: Start: 11-21-2024 End: 11-21-2024 ambulatory Geovanni Rivers DO Work Phone: [facility] Work Phone: Start: 11-09-2024 End: 11-09-2024 ambulatory [facility] Work Phone: Start: 11-09-2024 End: 11-09-2024 Patient encounter procedure [facility] Work Phone: Start: 08-08-2024 End: 08-08-2024 ambulatory [facility] Start: 06-27-2024 End: 06-27-2024 Office outpatient visit 25 minutes Goevanni Rivers DO Work Phone: [facility] Comment on above: IBD (inflammatory mira wel disease); Heartburn Start: 06-27-2024 End: 06-27-2024 ambulatory [facility] Start: 06-08-2024 End: 06-09-2024 Telephone encounter Julia Boss CMA [facility] Start: 05-31-2024 End: 05-31-2024 Office outpatient visit 25 minutes [facility] DO [facility] Comment on above: Ulcerative rectosigm oiditis without complication ([facility]) (Primary Dx); IBD (inflammatory bowel disease); Heartburn; Nausea and vomiting, unspecified vomiting type; Hyponatremia with extracellular fluid depletion Start: 05-31-2024 End: 05-31-2024 ambulatory [facility] Start: 05-31-2024 End: 05-31-2024 Emergency department patient visit [facility] Start: 05-27-2024 End: 05-27-2024 ambulatory Mandy Polo RN [facility] Start: 05-02-2024 End: 05-02-2024 Telephone encounter Herminio Leos CMA [facility] Start: 05-01-2024 End: 05-03-2024 Telephone encounter Herminio Leos CMA [facility] Start: 04-19-2024 End: 04-19-2024 Office outpatient visit 25 minutes Geovanni Rivers DO Work Phone: [facility] Comment on above: IBD (inflammatory mira wel disease) (Primary Dx) Start: 04-19-2024 End: 04-19-2024 ambulatory [facility] Start: 03-16-2024 End: 03-16-2024 Office outpatient visit 25 minutes Geovanni Rivers DO Work Phone: [facility] Comment on above: IBD (inflammatory mira wel disease) (Primary Dx); Colitis due to Clostridioides difficile Start: 03-16-2024 End: 03-16-2024 ambulatory [facility] Start: 03-08-2024 End: 03-08-2024 Evaluation and management of inpatient [facility] Start: 03-07-2024 End: 03-07-2024 ambulatory [facility] Pat Phone Call Provider 1 [facility] - Pre Admit Start: 03-07-2024 End: 03-07-2024 ambulatory [facility] Start: 02-10-2024 End: 02-10-2024 Emergency department patient visit [facility] Start: 02-08-2024 End: 02-08-2024 ambulatory [facility] Start: 02-08-2024 End: 02-08-2024 Office outpatient visit 25 minutes Geovanni Rivers DO Work Phone: [facility] Comment on above: Colitis (Primary Dx) ; Hypotension, unspecified hypotension type Start: 01-27-2024 End: 01-27-2024 Office outpatient visit 15 minutes Cande Rand OILER BANDER-HOME SUPPORT WORKER Work Phone: [facility] Comment on above: Colitis due to Clost ridioides difficile (Primary Dx) Start: 01-27-2024 End: 01-27-[address] [facility] Start: 01-25-2024 End: 01-25-2024 Orders Only Not In System Ref Prov [facility] Start: 01-24-2024 End: 01-24-2024 Refill Felisha Camille [facility] Start: 01-07-2024 End: 01-08-2024 ambulatory [facility] Start: 01-07-2024 End: 01-07-2024 Office outpatient visit 15 minutes Cande Rand OILER BANDER-HOME SUPPORT WORKER Work Phone: [facility] Comment on above: Colitis (Primary Dx) ; Hypokalemia; Reactive depression; Screen for colon cancer Start: 01-07-2024 End: 01-07-[address] [facility] Start: 08-27-2019 End: 08-27-2019 Patient [...] Adult depression scr eening assessment Cande Rand OILER BANDER-HOME SUPPORT WORKER Work Phone: Start: 01-16-2024 MULTIPLE LABS Not In Sy stem Ref Prov Start: 01-07-2024 Follow-up visit Follow-up [facility]DE RAND Start: 01-07-2024 Adult depression scr eening assessment Cande Rand OILER BANDER-HOME SUPPORT WORKER Work Phone: Plan of Treatment Date Care Activity Detail Author Start: 06-27-2025 Adult BMI Screening Adult BMI Screen ing [facility] Start: 06-27-2025 Depression Screening Depression Scre ening [facility] Start: 05-31-2025 Adult BMI Screening Adult BMI Screen ing [facility] Start: 05-31-2025 Depression Screening Depression Scre ening [facility] Start: 05-31-2025 Tobacco Screening Tobacco Screening [facility] Start: 04-19-2025 Adult BMI Screening Adult BMI Screen ing [facility] Start: 04-19-2025 Depression Screening Depression Scre ening [facility] Start: 04-19-2025 Tobacco Screening Tobacco Screening [facility] Start: 03-16-2025 Adult BMI Screening Adult BMI Screen ing [facility] Start: 03-16-2025 Depression Screening Depression Scre ening [facility] Start: 03-16-2025 Tobacco Screening Tobacco Screening [facility] Start: 03-08-2025 Adult BMI Screening Adult BMI Screen ing [facility] Start: 03-08-2025 Tobacco Screening Tobacco Screening [facility] Start: 02-07-2025 Adult BMI Screening Adult BMI Screen ing [facility] Start: 02-07-2025 Depression Screening Depression Scre ening [facility] Start: 02-07-2025 Tobacco Screening Tobacco Screening [facility] Start: 01-26-2025 Adult BMI Screening Adult BMI Screen ing [facility] Start: 01-26-2025 Depression Screening Depression Scre ening [facility] Start: 01-26-2025 Tobacco Screening Tobacco Screening [facility] Start: 01-06-2025 Adult BMI Screening Adult BMI Screen ing [facility] Start: 01-06-2025 Depression Screening Depression Scre ening [facility] Start: 01-06-2025 Tobacco Screening Tobacco Screening [facility] Start: 11-21-2024 [facility] Start: 08-08-2024 End: 08-08-2024 Patient encounter procedure 08/08/2024 2:30 PM EST [facility] [address] [place] [address] Geovanni Rivers, DO [address] [place] [address] [facility] Internal Medicine - Family Medicine Start: 06-27-2024 End: 06-27-2024 Patient encounter procedure 06/27/2024 4:00 PM EST [facility] [address] [place] [address] Geovanni Rivers, DO [address] [place] [address] [facility] Start: 05-31-2024 End: 05-31-2024 Patient encounter procedure 05/31/2024 1:40 PM EDT Office Visit [facility] Internal Medicine - Family Medicine [address] [place] [address] Leonel Avalos, OILER BANDER-POLITICAL SCIENCE INSTRUCTOR [address] [address] [facility] - [facility] Start: 04-19-2024 End: 04-19-2024 Patient encounter procedure 04/19/2024 2:45 PM EDT Office Visit [facility] Internal Medicine - Family Medicine [address] [place] [address] Geovanni Rivers, DO [address] [place] [address] [facility] Internal Medicine - Family [facility] Start: 03-16-2024 End: 03-16-2024 Patient encounter procedure 03/16/2024 11:15 AM EDT Office Visit [facility] Internal Medicine - Family [facility] [address] [place] [address] Geovanni Rivers, DO [address] [place] [address] [facility] Internal Medicine - [facility] Start: 03-08-2024 End: 03-08-2024 Admission to same day surgery center 03/08/2024 10:00 AM EDT - 03/08/2024 11:00 AM EDT Surgery [facility] [address] [place] [facility] [place] [address] Geovanni Rivers, DO [address] [place] [address] COLONOSCOPY DIAGNOSTIC / SCREENING [88374 (CPT )] [facility] Comment on above: COLONOSCOPY DIAGNOST IC / SCREENING [52836 (CPT )] Start: 03-08-2024 Subsequent hospital visit by physician 03/08/2024 10:00 AM EDT Hospital Encounter [facility] [address] [place] [place] [address] Geovanni Rivers, DO [address] [place] [address] [facility] Start: 03-08-2024 End: 03-08-2024 Colonoscopy flx dx w/collj spec when pfrmd [facility] Start: 03-07-2024 End: 03-07-2024 ambulatory 03/07/2024 3:40 PM EDT Support Visit [facility] - Pre Admit [address] [place] [id number] [facility] Start: 01-27-2024 End: 01-27-2024 Patient encounter procedure 01/27/2024 2:40 PM EDT Office Visit [facility] Internal Medicine - Family Medicine [address] [place] [id number] Cande Rand, OILER BANDER-HOME SUPPORT WORKER [address] [place] [address] [facility] Internal Medicine - Family Medicine Start: 1998 Screening for malign ant neoplasm of cervix Pap Smear [facility] Start: 1996 DTaP,Tdap and Td Vaccines (1 - Tdap) DTaP,Tdap and Td Vaccines (1 - Tdap) [facility] Start: 1995 Adult BMI Follow Up Plan Adult BMI Follow Up Plan [facility] End: 03-16-2025 C-reactive protein C-reactive protein Lab Routine IBD (inflammatory bowel disease) 1 Occurrences starting 03/16/2024 until 03/16/2025 [employer] Work Phone: Comment on above: 1 Occurrences starti ng 03/16/2024 until 03/16/2025 End: 01-06-2025 Colonoscopy Colonoscopy GI Routine Screen for colon cancer 1 Occurrences starting 01/07/2024 until 01/06/2025 [employer] Work Phone: Comment on above: 1 Occurrences starti ng 01/07/2024 until 01/06/2025 End: 02-07-2025 Colonoscopy Colonoscopy GI Routine Colitis 1 Occurrences starting 02/08/2024 until 02/07/2025 [employer] Work Phone: Comment on above: 1 Occurrences starti ng 02/08/2024 until 02/07/2025 Colonoscopy flx dx w/collj spec when pfrmd COLONOSCOPY DIAGNOSTIC / SCREENING Colitis [facility] End: 03-16-2025 Cytoplasmic Neutrophilic Ab, S Cytoplasmic Neutrophilic Ab, S Lab Routine IBD (inflammatory bowel disease) 1 Occurrences starting 03/16/2024 until 03/16/2025 [employer] System Comment on above: 1 Occurrences starti ng 03/16/2024 until 03/16/2025 Patient Education Hemorrhoids ED Colitis - Discharge instructions Know your Meds [facility] Work Phone: [facility] Payers Date Payer Category Payer Self-pay 2023 Medicaid [employer] [facility] O [id number] 2023-Present [phone] [address] [place] [address] [id number] 2023 Medicaid HMO [employer] [id number] 2023 Medicaid [id number] 1977 Unknown [id number] 1977 Unknown [id number] 1977 Unknown [id number] [id number]85 1977 Unknown [id number] 2.16.840.1.994675.3.579.2.1285 1977 Unknown [id number] 2.16.840.1.058512.3.579.2.1285 1977 Unknown [id number] 2.16.840.1.485503.3.579.2.1285 1977 Unknown [id number] 2.16.840.1.127648.3.579.2.1285 1977 Unknown [id number] [id number] 1977 Unknown [id number] 2.16840.1.476380.3.579.2.1285 1977 Unknown [id number] 2.840.1.521933.3.579.2.1285 1977 Unknown [id number] 2.16.840.1.491026.3.579.2.1285 1977 Unknown [id number] 2.16840.1.361404.3.579.2.1285 1977 Unknown [id number] 2.16840.1.663349.3.579.2.1285 1977 Unknown [id number] 2.16840.1.709066.3.579.2.[facility] Unknown [id number] Unknown [id number] [id number] Social History Date Type Detail Facility Start: 01-07-2024 End: 11-21-2024 Tobacco smoking status NJIS Ex-smoker [facility] History of tobacco use Current smoker [facility] History of tobacco use Cigarette Sm[facility] Start: 01-07-2024 End: 06-27-2024 Cigarettes smoked current (pack per day) - Reported 0.5 [facility] Start: 01-07-2024 Tobacco use and exposure Smokeless tobacco non-user [facility] Start: 01-27-2024 End: 06-27-2024 Alcoholic beverage intake Ex-drinker (finding) [facility] Start: 01-27-2024 End: 06-27-2024 Tobacco use panel [facility] Adolescent depressio n screening assessment 0 [facility] Start: 06-28-2023 Alcohol Comment Rarely [facility] Start: 1975 [facility] assigned at [facility] Start: 05-13-2022 End: 11-21-2024 Sex Female (finding) [facility] Tobacco smoking stat us NJIS Unknown if ever smoked [facility] Work Phone: Start: 1975 Sex Assigned At Female F [facility] Goals Date Patient Goal Desired Activity /State Clinical Notes 11-10-2023 to 11-21-2024 Note Date & Type Note Facility 11-21-2024 Procedure note [facility] 11-09-2024 Evaluation note Authored November 09, 2024 11:57am 49-year-old female referred to the GI clinic for evaluation of ulcerative colitis. Patient had a colonoscopy a year ago which showed left-sided colitis consistent with UC. Patient is currently on mesalamine 400 mg twice daily. Will arrange for colonoscopy. Will check CBC CRP and fecal calprotectin Will increase mesalamine to 1.2 g twice daily [facility] Work Phone: 1(171) 928-968511-05-2024 History of Present illness Narrative* Geovanni Rivers, [...] Testing No results found. Geovanni Rivers DO., [facility] Office: [phone] documented in this encounter[facility]10-[facility]-2024 Miscellaneous Notes* Telephone Encounter - Julia Boss [...] verbalizes understanding. documented in this encounterSelect [facility]10-[facility]-2024 Telephone encounter Note* Telephone Encounter - Julia Boss CMA - 06/08/2024 1:13 PM EDT Pt called and states that since she has been taking the pepcid her indigestion is worse especially at night. She has been taking it for about a week. Please advise. [facility]10-17-2024 Telephone encounter Note* Telephone Encounter - Geovanni [...] on a brick or 2x4 [facility]10-17-2024 Telephone encounter Note* Telephone Encounter - Julia Boss CMA - 06/08/2024 1:13 PM EDT Called pt. Read note. Pt verbalizes understanding. [facility]10-09-2024 History of Present illness Narrative* Geovanni Rivers [...] -will monitor serially Subjective FOLLOW-UP: EMERGENCY DEPARTMENT ([place]) and hospital visit ([place]) Patient was discharged from the facility on: 05/31/2024 from the ED, and 05/25/2024 for hospital visit at [place] Diagnosis was: 1. Was admitted to [place] for nausea vomiting and colitis. CT showed [...] so presented to the emergency department at [place]. Work-up and testing included: Surgery or biopsies? [...] She has been referred to Gastroenterology at [facility], but her appointment is not until September [...] Exam Vitals reviewed. Exam conducted with a supervisor powdered sugar present (Mother). Constitutional: General: She is not [...] the abdomen or pelvis. Geovanni Rivers DO., [facility] Office: [phone] documented in this encounterProMedica Health [id number] Miscellaneous Notes* Telephone Encounter - Mandy Polo RN - 05/27/2024 8:17 AM EDT ----- Message from Eun sent at 05/27/2024 8:13 AM EDT ----- Contract: 198 - Was just discharged yesterday from ER and the 2 antibiotic pills she has questions about. * Telephone Encounter - Mandy Polo RN - 05/27/2024 8:17 AM EDT Contract: 198 Was hospitalized ([place]) x 5 days for a Colitis flair [...] her on Augmentin Will speak to provider application release manager to discuss Reason for Disposition [1] Follow-up call from patient regarding patient's clinical status AND [2] information urgent Protocols used: PCP Call - No Triage-A-AH * Telephone Encounter - Mandy Polo RN - 05/27/2024 8:[address] Rivers on his cell phone- warm transferred him to [facility] documented in this encounterSelect [facility]10-[facility]-2024 Telephone encounter Note* Telephone Encounter - Mandy Polo RN - 05/27/2024 8:17 AM EDT ----- Message from Eun sent at 05/27/2024 8:13 AM EDT ----- Contract: 198 - Was just discharged yesterday from ER and the 2 antibiotic pills she has questions about. [facility]10-05-2024 Telephone encounter Note* Telephone Encounter - Mandy Polo RN - 05/27/2024 8:17 AM EDT Contract: 198 Was hospitalized ([place]) x 5 days for a Colitis flair [...] her on Augmentin Will speak to provider application release manager to discuss Reason for Disposition [1] Follow-up call from patient regarding patient's clinical status AND [2] information urgent Protocols used: PCP Call - No Triage-A- [facility]10-05-2024 Telephone encounter Note* Telephone Encounter - Mandy Polo RN - 05/27/2024 8:[address] Rivers on his cell phone- warm transferred him to [facility]09-10-2024 Miscellaneous Notes* Telephone Encounter - Herminio Leos CMA - 05/02/2024 10:24 AM EDT Message noted. I have no other medications that I can offer. I suggest that we have her see a head operator at this time. Clos[facility] are in [place]. I can make arrangements if she is willing Note documented in this encounterProMedica [facility] HospitalPhotonic Materials09-10-2024 Telephone encounter Note* Telephone Encounter - Herminio Leos CMA - 05/02/2024 10:24 AM EDT Message noted. I have no other medications that I can offer. I suggest that we have her see a head operator at this time. [facility]os[facility] are in [place]. I can make arrangements if she is willing Note [facility] [employer] [id number] Miscellaneous Notes* Telephone Encounter - Herminio Leos [...] suggest that we have her see a head operator at this time. [facility]os[facility] are in [place]. I can make arrangements if she is willing * Telephone Encounter - Delmis Red CMA - 05/01/2024 2:25 PM EDT Patient agrees to see specialist * Telephone Encounter - Geovanni Rivers DO - 05/01/2024 2:25 PM EDT Message noted. A referral to Shakira Arias, at [facility], was sent today The patient can schedule her appointment at any time. documented in this encounterSelect [facility]09-09-2024 Telephone encounter Note* Telephone Encounter - Herminio [...] Pharmacy is listed and correct. [facility]09-09-2024 Telephone encounter Note* Telephone Encounter - Geovanni Rivers DO - 05/01/2024 2:25 PM EDT Message noted. I have no other medications that I can offer. I suggest that we have her see a head operator at this time. [facility]os[facility] are in [place]. I can make arrangements if she is willing [facility]09-09-2024 Telephone encounter Note* Telephone Encounter - Delmis Red CMA - 05/01/2024 2:25 PM EDT Patient agrees to see specialist [facility]09-09-2024 Telephone encounter Note* Telephone Encounter - Geovanni Rivers DO - 05/01/2024 2:25 PM EDT Message noted. A referral to Shakira Arias, at [facility], was sent today The patient can schedule her appointment at any time. [facility]08-28-2024 History of Present illness Narrative* Geovanni Rivers DO - 04/19/2024 2:30 PM EDT IM PROGRESS NOTE Patient - Kelli Lake Age - 49 y.o. - 1975 [facility] - [id number] ASSESSMENT & PLAN 1. IBD (inflammatory bowel [...] Exam Vitals reviewed. Exam conducted with a supervisor powdered sugar present (Mother). Constitutional: General: She is not [...] 02/10/2024 Negative Negative^Negative Final Nitrite [facility] 02/10/2024 Negative Negative^Negative Final Ph 02/10/2024 6.0 5.0 - 8.5 Final Protein [facility] 02/10/2024 30 (A) Negative^Negative mg/dL Final Urine glucose ME[facility] 02/10/2024 Negative Negative^Negative mg/dL Final Ketones [facility] 02/10/2024 80 (A) Negative^Negative mg/dL Final Urobilinogen ME[facility] 02/10/2024 0.2 <1.1 eu/dL Final Bilirubin [facility] 02/10/2024 Small (A) Negative^Negative Final Hemoglobin [facility] 02/10/2024 Negative Negative^Negative Final Nursing urine 02/10/2024 Negative Negative^Negative Final Other Testing No results found. Geovanni Rivers DO., [facility] Office: [phone] documented in this encounterSelect Medical [facility]Health [facility]07-25-2024 History of Present illness Narrative* Geovanni Rivers DO - 03/16/2024 11:15 AM EDT IM PROGRESS NOTE Patient - Kelli Lake Age - 48 y.o. - 1975 [facility] # - [id number] ASSESSMENT & PLAN 1. IBD (inflammatory bowel [...] hadbeen diagnosed with C difficile colitis at [facility] earlier this year, and had a very [...] Exam Vitals reviewed. Exam conducted with a supervisor powdered sugar present (Mother). Constitutional: General: She is not [...] 40 U/L Final Specific gravity [facility] 02/10/2024 1.025 1.003 - 1.035 Final Leukocyte esterase [facility] 02/10/2024 Negative Negative^Negative Final Nitrite [facility] 02/10/2024 Negative Negative^Negative Final Ph 02/10/2024 6.0 5.0 - 8.5 Final Protein [facility] 02/10/2024 30 (A) Negative^Negative mg/dL Final Urine glucose [facility] 02/10/2024 Negative Negative^Negative mg/dL Final Ketones [facility] 02/10/2024 80 (A) Negative^Negative mg/dL Final Urobilinogen [facility] 02/10/2024 0.2 <1.1 eu/dL Final Bilirubin [facility] 02/10/2024 Small (A) Negative^Negative Final Hemoglobin [facility] 02/10/2024 Negative Negative^Negative Final Nursing [...] and endoscopic correlation recommended. Geovanni Rivers DO., [facility] Office: [phone] documented in this encounterSelect Medical [facility]07-16-2024 Nurse Note* Perioperative Nursing Note - Daily Balderas RN - 03/07/2024 12:08 PM EDT Preoperative Education Checklist- General Surgery date: 03/08/24 Surgery time: 10a Arrival time: 9a 1. Bring a photo ID and your insurance card with you the day of surgery. You will check in at the main lobby of the [facility]- registration desk is straight ahead as soon as you walk in. Tell them you are here for surgery. 2. If you have a Living Will/Durable Power of Centerless Grinder Operator for Health Care that is not on [...] after you have bathed. 5. NO nail sudanese/acrylic on at least one finger. If you are having a hand, wrist or foot surgery then all nail sudanese and artificial/acrylic nails must be removed from [...] please call the Preadmission Testing office at [phone], Mon.-Fri. 7 a.m.-3 p.m. Leave a voicemail if needed. Pre-Surgery Instructions: Medication Instructions escitalopram (LEXAPRO) 5 mg tablet Stop taking 0 days prior to procedure dicyclomine (BENTYL) 20 mg tablet Stop taking 0 days prior to procedure hyoscyamine (LEVSIN) 0.125 mg SL tablet Stop taking 0 days prior to procedure peg 3350-sod sulf,guaf-lso-yjj 178.7-7.3-0.5 gram recon soln Check with prescribing doctor for instructions polyethylene glycol (GOLYTELY) 236-22.74-6.74 -5.86 gram solution Check with prescribing doctor forinstructions PROMETHEGAN 12.5 mg suppository Stop taking 0 days prior to procedure [employer] [id number] Miscellaneous Notes* Perioperative Nursing Note - Daily Balderas RN - 03/07/2024 12:08 PM EDT Preoperative Education Checklist- General Surgery date: 03/08/24 Surgery time: 10a Arrival time: 9a 1. Bring a photo ID and your insurance card with you the day of surgery. You will check in at the main lobby of the [facility]- registration desk is straight ahead as soon as you walk in. Tell them you are here for surgery. 2. If you have a Living Will/Durable Power of Centerless Grinder Operator for Health Care that is not on [...] after you have bathed. 5. NO nail sudanese/acrylic on at least one finger. If you are having a hand, wrist or foot surgery then all nail sudanese and artificial/acrylic nails must be removed from [...] please call the Preadmission Testing office at [phone], Mon.-Fri. 7 a.m.-3 p.m. Leave a voicemail if needed. Pre-Surgery Instructions: Medication Instructions escitalopram (LEXAPRO) 5 mg tablet Stop taking 0 days prior to procedure dicyclomine (BENTYL) 20 mg tablet Stop taking 0 days prior to procedure hyoscyamine (LEVSIN) 0.125 mg SL tablet Stop taking 0 days prior to procedure peg 3350-sod sulf,iklp-huj-ulm 178.7-7.3-0.5 gram recon soln Check with prescribing doctor for instructions polyethylene glycol (GOLYTELY) 236-22.74-6.74 -5.86 gram solution Check with prescribing doctor forinstructions PROMETHEGAN 12.5 mg suppository Stop taking 0 days prior to procedure documented in this encounterSelect Medical TriHealth [facility] Hospital06-18-2024 History of Present illness Narrative* Geovanni Rivers, [...] weeks ago when she was seen in [place] ED, diagnosed with colitis, and placed on antibiotics. Her symptoms never really went away, and she returned to the emergency department for evaluation. -at that time she was diagnosed with C difficile colitis, was placed on Flagyl and steroids and discharged home. She felt terrible with nausea vomiting and generalized weakness. -she returned to [place] ED, was admitted to the hospital for [...] Exam Vitals reviewed. Exam conducted with a supervisor powdered sugar present (Mother). Constitutional: General: She is not [...] Testing No results found. Geovanni Rivers DO., [facility] Office: [phone] documented in this encounterSelect Medical TriHealth [facility] Hospital06-06-2024 History of Present illness Narrative* Cande Rand, MAEGAN-HOME SUPPORT WORKER - 01/27/2024 2:40 PM EDT Subjective Patient ID: Kelli Lake is a 48 y.o. female. She was in the hospital for intractable vomiting The air brake man initially thought she had pancreatitis but eventially [...] 01/27/24 [id number] documented in this encounterSelect Medical TriHealth [facility] Hospital06-03-2024 Miscellaneous Notes* Telephone Encounter - Felisha Obrien CMA - 01/24/2024 12:03 PM EDT Pt called requesting a refill she knows they are from the hospital but wanted to know if you could refill them she has 1 left just in case and plans to talk to you about them at her visit at the end of the week documented in this encounterSelect Medical TriHealth [facility] Hospital06-03-2024 Telephone encounter Note* Telephone Encounter - Felisha Obrien CMA - 01/24/2024 12:03 PM EDT Pt called requesting a refill she knows they are from the hospital but wanted to know if you could refill them she has 1 left just in case and plans to talk to you about them at her visit at the end of the week [facility]05-17-2024 History of Present illness Narrative* MIRELLA Oconnell [...] 01/07/24 1126 documented in this encounterSelect Medical TriHealth [facility] Hospital03-20-2024 Evaluation note* [facility] Authored November 09, 2024 11: 57am 49-year-old female referred to the GI clinic for evaluation of ulcerative colitis. Patient had a colonoscopy a year ago which showed left-sided colitis consistent with UC. Patient is currently on mesalamine 400 mg twice daily. Will arrange for colonoscopy. Will check CBC CRP and fecal calprotectin Will increase mesalamine to 1.2 g twice daily [facility] Work Phone: Evaluation note* Diagnosis Colitis due to Clostridioides difficile- Primary [facility] Diagnosis Colitis- Primary Other and unspecified noninfectious gastroenteritis and colitis Hypokalemia Hypopotassemia Reactive depression Screen for colon cancer Special screening for malignant neoplasms, colon documented in this encounter [facility]* Diagnosis Colitis- Primary Other and unspecified noninfectious gastroenteritis and colitis Hypotension, unspecified hypotension type documented in this encounter [facility]* Diagnosis IBD (inflammatory bowel disease)- Primary Other and unspecified noninfectious gastroenteritis and colitis Colitis due to Clostridioides difficile documented [facility] Diagnosis IBD (inflammatory bowel disease)- Primary Other and unspecified noninfectious gastroenteritis and colitis documented in this encounter [facility] Diagnosis 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[facility])- Primary IBD (inflammatory bowel disease) Other and unspecified noninfectious gastroenteritis and colitis Heartburn Nausea and vomiting, unspecified vomiting type Hyponatremia with extracellular fluid depletion Hyposmolality and/or hyponatremia [facility] Diagnosis IBD (inflammatory bowel disease) Other and unspecified noninfectious gastroenteritis and colitis Heartburn [facility] instructions Additional Instructions DISCHARGE INSTRUCTIONS FOR [...] NOT operate machinery such as power tools, [employer] mowers, Choooswers, sewing machines, etc. for 24 hours. - [...] have any problems. -Follow-up pathology -Office number [phone]. [facility] Work Phone: InstructionsNot on filedocumented in this encounter [facility] filedocumented in this encounter [facility] filedocumented in this [facility] on filedocumented in this encounter [facility] Summary Purpose Family History No [...] colon cancer Procedures Colonoscopy Colonoscopy Cande Rand, OILER BANDER-HOME SUPPORT WORKER [address] [place] [address] Referral ID Status Reason Start Date Expiration Date V isits Requested Visits Authorized [id number] Pending Review 01/07/2024 01/06/2025 1 1 Chief Complaint and Reason for Visit Chief Complaint Admit Date Refer: ulcerative rectosigmoiditis November 09, 2024 11:05am Chief Complaint Admit Date Refer: ulcerative rectosigmoiditis November 09, 2024 11:05am November 21, 2024 8:08 am November 21, 2024 9:59 am Additional Source Comments INFORMATION SOURCE (unrecogn ized section and content) DATE CREATED AUTHOR 08/29/2019 [facility] DATE CREATED AUTHOR AUTHOR'S ORGANIZ ATION 01/10/2024 [facility] DATE CREATED AUTHOR AUTHOR'S ORGANIZ ATION 06/02/2024 [facility] DATE CREATED AUTHOR AUTHOR'S ORGANIZ ATION 08/11/2024 [facility] DATE CREATED AUTHOR AUTHOR'S ORGANIZ ATION 11/22/2024 [facility] Reason for Visit (unrecogniz ed [...] Care Teams (unrecognized sec tion and content) Donor Services Specialist Relationship Specialty Start Date End Date Geovanni Rivers DO [address] [place] [address] PCP - General Internal Medicine 01/27/24 Donor Services Specialist Relationship Specialty Start Date End Date Cande Rand, OILER BANDER-[facility] [address] [facility] [place] [address] PCP - General Internal Medicine 06/28/23 Donor Services Specialist Relationship Specialty Start Date End Date Cande Rand, [facility] [address] [facility] [place] [address] PCP - General Internal Medicine 06/28/23 Donor Services Specialist Relationship Specialty Start Date End Date Cande Rand, [facility] [address] [place] [address] PCP - General Internal Medicine 06/28/23 Donor Services Specialist Relationship Specialty Start Date End Date Geovanni Rivers DO [address] [facility] [address] PCP - General Internal Medicine 01/27/24 Donor Services Specialist Relationship Specialty Start Date End Date Geovanni Rivers DO [address] [facility] [place] [address] PCP - General Internal Medicine 01/27/24 Donor Services Specialist Relationship Specialty Start Date End Date Geovanni Rivers DO [address] [facility] [place] [address] PCP - General Internal Medicine 01/27/24 Donor Services Specialist Relationship Specialty Start Date End Date Geovanni Rivers DO [address] [place] [address] PCP - General Internal Medicine 01/27/24 Donor Services Specialist Relationship Specialty Start Date End Date Geovanni Rivers DO [address] [place] [address] PCP - General Internal Medicine 01/27/24 Donor Services Specialist Relationship Specialty Start Date End Date Geovanni Rivers DO [address] [place] [address] PCP - General Internal Medicine 01/27/24 Donor Services Specialist Relationship Specialty Start Date End Date Geovanni Rivers DO [address] [place] [address] PCP - General Internal Medicine 01/27/24 Team [...] BE BASED ON THE PRIMARY CLINICAL RECORDS. [facility] [employer] [facility]. provides no warranty or guarantee of the accuracy or completeness of information in this document.
[2024-11-24 18:11] VITALS: BP 135/87; BP 145/88; PULSE 68; PULSE 72; TEMP 36.6; TEMP 36.7; O2SAT 100; O2SAT 99; BMI 25.2
[2024-11-24 19:29] VITALS: BP 130/88; PULSE 65; TEMP 36.7; O2SAT 98
[2024-11-24 23:18] VITALS: BP 157/78; PULSE 72; TEMP 37.3; O2SAT 98
[2024-11-24] MEDS: POTASSIUM CHLORIDE IN 0.9%NACL 1,000 ML 100 ML IV (23:29)
[2024-11-24] MEDS: METHYLPREDNISOLONE SOD SUCC PF 125 MG/2 ML VIAL 60 MG IVP (23:29)
[2024-11-25 04:00] VITALS: BP 154/91; PULSE 75; TEMP 36.8; O2SAT 97
[2024-11-25] MEDS: METHYLPREDNISOLONE SOD SUCC PF 125 MG/2 ML VIAL 60 MG IVP ×4 (04:20→22:45)
[2024-11-25] MEDS: ONDANSETRON PF 4 MG/2 ML VIAL IV (04:20)
[2024-11-25 06:23] LABS: Hematocrit 32.2 % (36.0-48.0); Hemoglobin 10.5 g/dL (12.0-16.0); Mean Corpuscular HGB Conc 32.6 g/dL (29.9-35.2); Mean Corpuscular Hemoglobin 26.3 pg (26.7-34.0); Mean Corpuscular Volume 80.7 fL (81.0-99.0); Mean Platelet Volume 10.8 fL (9.5-13.5); Platelet Count 260 10^3/uL (150-450); Red Blood Count 3.99 10^6/uL (4.20-5.40); Red Cell Distribution Width 14.7 % (11.0-15.0); White Blood Count 11.1 10^3/uL (4.0-11.0)
[2024-11-25 06:44] LABS: Lymphocytes Absolute Manual 0.66 10^3/uL (1.20-3.80); Monocytes Absolute Manual 0.22 10^3/uL (0.30-0.80); Segmented Neut Absolute Manual 10.21 10^3/uL (1.4-6.5)
[2024-11-25 06:45] LABS: Alanine Aminotransferase 13 U/L (14-59); Albumin Globulin Ratio 0.8; Albumin Level 3.6 g/dL (3.4-5.0); Alkaline Phosphatase 72 U/L (46-116); Anion Gap 18.6; Aspartate Amino Transferase 14 U/L (15-37); Bilirubin Total 0.4 mg/dL (0.2-1.0); Calcium 8.7 mg/dL (8.5-10.1); Carbon Dioxide 22.4 mmol/L (21.0-32.0); Chloride 102 mmol/L (98-107); Estimated GFR (African America >60 (>=60 mL/min/1.73m^2); Estimated GFR (Non-African Ame >60 (>=60 mL/min/1.73m^2); Globulin 4.4 g/dL; Glucose 147 mg/dL (74-106); Sodium 139 mmol/L (136-145)
[2024-11-25 07:59] VITALS: BP 140/77; PULSE 72; TEMP 36.6; O2SAT 99
--- NOTE | 2024-11-25 08:32 | P.HP_ITS ---
HPI H&P: HPI History of Present Illness Chief complaint: ABDOMINAL PAIN, COLLITIS Narrative: 49 y.o white female with history of scoliosis, and ulcerative colitis, taking mesalamine daily. She was recently seen at [facility] by her GI doctor, Dr. Hernandez, on wednesday for colonoscopy. She was to start Prednisone 80mg daily with taper but could not tolerate it. This was prescribed on . She presented to the ER yesterday with nausea/vomiting and abdominal pain WBC's 14.5, CT of the abdomen showed acute proctocolitis in the rectum, sigmoid, and descending colon. This morning patient reports pain is still present and had episode of vomiting early this morning. She denies any diarrhea today, no fevers or chills. Opioid HPI Opioid Management Most Recent Pain and Opioid Data: Last Pain Scale 2 11/25/24 11:39 11/25/24 Last Pain Assessment 11/25/24 12:29 Last MAR Pain Assessment 11/25/24 10:46 Last ORT Total Score 3 11/24/24 18:11 11/24/24 Last ORT Risk Category Low Risk 11/24/24 18:11 11/24/24 Review of Systems ROS Narrative ROS: a complete review of systems were reviewed with patient and are positive as below or listed in History of Chief Complaint. General: no fever, chills, night sweats Head: no headache, trauma, visual changes, nausea or vomiting Skin: no reported rashes, itching or sores Eyes: no blurriness of vision Ears: no reported hearing loss, vertigo, earache, or tinnitus Throat: no sore throat, hoarseness, swelling of neck, or tongue pain Heart: no chest pain Lungs: no shortness of breath or cough GI: no diarrhea but vomiting/nausea Urinary: no urinary urgency, frequency or pain Neuro: no numbness or tingling HEM: no bleeding issues or bruising ENDO: no thyroid problems Psych: no anxiety or depression [facility] Medical History (Updated 11/25/24 @ 08:44 by Joyce Frederick DO) Hyponatremia ?E87.1 - Hypo-osmolality and hyponatremia (ICD-10) Intractable abdominal pain ?R10.9 - Unspecified abdominal pain (ICD-10) Depression ?F32.A - Depression, unspecified (ICD-10) Colitis ?K52.9 - Noninfective gastroenteritis and colitis, unspecified (ICD-10) Acute proctitis ?K62.89 - Other specified diseases of anus and rectum (ICD-10) 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 of left artificial elbow joint (ICD-10) Scoliosis ?M41.9 - Scoliosis, unspecified (ICD-10) Surgical History Previous back surgery ?Z98.890 - Other specified postprocedural states (ICD-10) Family History Mother Family history of CHF (congestive heart failure) Family history of cancer Family history of hypertension Family history of myocardial infarction Family history of stroke Father Family history of cancer Social History Within the past year, how often did you have a drink containing alcohol: monthly or less Within the past year, how often did you have six or more drinks on one occasion: less than monthly Smoking status: Former smoker Second hand tobacco smoke exposure: No Non-prescribed substance use: cannabis (any form) Previous occupational history: Does not Work Known occupational exposures/hazards: No Highest level of school completed/degree received: high school graduate Do you want help with school or training: No Are you now , , , , never or living with a partner: never In a typical week, how many times do you talk on the telephone with family, friends, or neighbors: 3 or more times per week How often do you get together with friends or relatives: 3 or more times per week How often do you attend amish or methodist services: never Do you belong to any clubs or organizations such as amish groups unions, fraternal or athletic groups, or school groups: no Total score: 1 Score interpretation: A score of less than or equal to 1 indicates the most socially isolated. Little interest or pleasure in doing things: not at all Feeling down, depressed, or hopeless: several days Feel stressed/tense/nervous/anxious/difficulty sleeping: not at all Due to disability, difficulty making decisions: No Do you think of yourself as: straight/heterosexual Gender Identity: female Meds Home Medications and Allergies Home Medications ?Medication ?Instructions ?Recorded ?Confirmed ?Type mesalamine 400 mg capsule (with 400 mg PO BID 05/26/24 11/25/24 History delayed release tablets inside) Allergies Allergy/AdvReac Type Severity Reaction Status Date / Time metronidazole (From Flagyl) AdvReac Intermediate Abdominal Verified 05/22/24 16:14 Pain Exam Narrative Exam Narrative: General: Patient is alert, and oriented to person, place and time with normal affect, proper hygiene Skin: no visible rashes, or ulcers Head: atraumatic, acephalic Eyes: PERRLA, no nystagmus present, conjunctiva clear, no scleral icterus Ears: normal gross auditory acuity Heart: Normal rate and rhythm, no murmurs/rubs/gallops Lungs: no audible wheezes, crackles and normal breath sounds all lung quan Abdomen: hyperactive bowel sounds, no distension, guarding in the lower abdomen Musculoskeletal:no swelling bilateral lower extremities Neuro: CN II-X grossly intact Constitutional Vital Signs, click to edit/add: Last Vital Signs Temp 97.8 F 11/25/24 07:59 Pulse 72 11/25/24 07:59 Resp 16 11/25/24 07:59 BP 140/77 11/25/24 07:59 Pulse Ox 99 11/25/24 07:59 O2 Del Method Room Air 11/25/24 07:59 Results Labs Labs: Short CBC 11/24/24 11/25/24 Range/Units 14:32 05:40 WBC 14.5 H 11.1 H (4.0-11.0) 10^3/uL Hgb 10.9 L 10.5 L (12.0-16.0) g/dL Hct 33.0 L 32.2 L (36.0-48.0) % Plt Count 299 260 (150-450) 10^3/uL BMP 11/24/24 11/25/24 14:32 05:40 Sodium 135 L 139 Potassium 3.7 4.0 Chloride 100 102 Carbon Dioxide 23.9 22.4 BUN 11.0 10.0 Creatinine 0.88 0.91 Glucose 173 H 147 H Calcium 9.2 8.7 Liver Function 11/24/24 11/25/24 Range/Units 14:32 05:40 Total Bilirubin 0.5 0.4 (0.2-1.0) mg/dL AST 13 L 14 L (15-37) U/L ALT 18 13 L (14-59) U/L Alkaline Phosphatase 79 72 (46-116) U/L Albumin 3.8 3.6 (3.4-5.0) g/dL Assessment and Plan Assessment and Plan (1) Acute ulcerative colitis without complications: Assessment and Plan: continue IV solumedrol, WBC's elevated due to steriod use. Monitor daily, IV tylenol for pain, patient on clear diet only. check lipase. Normal liver enzymes. (2) Nausea & vomiting: Assessment and Plan: continue with zofran, NPO, Phenergan. May add Reglan if needed Qualifiers: Vomiting type: unspecified Qualified Code(s): R11.2 - Nausea with vomiting, unspecified (3) Acute pancreatitis: Assessment and Plan: lipase was elevated to 501. continue pain control, antiemetics. CT did not show any acute pancreatic effects. Most likely cause is the vomiting and colitis Qualifiers: Pancreatitis type: drug induced Acute pancreatitis complication: unspecified Qualified Code(s): K85.30 - Drug induced acute pancreatitis without necrosis or infection Plan Patient is a full code Patient is in inpatient status
[2024-11-25] MEDS: OXYCODONE HCL/ACETAMINOPHEN 5MG/325MG 1 TAB PO ×2 (09:05→17:04)
[2024-11-25] MEDS: LACTATED RINGER'S SOLUTION 1,000 ML 150 ML IV ×3 (09:05→22:46)
[2024-11-25] MEDS: PROMETHAZINE HCL 25 MG TABLET PO ×2 (09:05→17:04)
[2024-11-25 09:08] LABS: Magnesium 1.6 mg/dL (1.8-2.4)
[2024-11-25 11:39] VITALS: BP 142/84; PULSE 76; TEMP 36.7; O2SAT 99
[2024-11-25] MEDS: PANTOPRAZOLE SODIUM 40 MG VIAL IV (11:43)
[2024-11-25 15:32] VITALS: BP 140/84; PULSE 60; TEMP 36.9; O2SAT 99
[2024-11-25 19:53] VITALS: BP 163/81; PULSE 58; TEMP 37.6; O2SAT 97
[2024-11-25] MEDS: PROCHLORPERAZINE 10 MG/2 ML VIAL IV (22:46)
[2024-11-25 23:31] VITALS: BP 172/95; PULSE 56; TEMP 36.9; O2SAT 98
[2024-11-26 04:00] VITALS: BP 148/89; PULSE 76; TEMP 36.8; O2SAT 97
[2024-11-26] MEDS: METHYLPREDNISOLONE SOD SUCC PF 125 MG/2 ML VIAL 60 MG IVP ×4 (05:12→23:06)
[2024-11-26] MEDS: LACTATED RINGER'S SOLUTION 1,000 ML 150 ML IV ×3 (05:12→19:58)
[2024-11-26] MEDS: ONDANSETRON PF 4 MG/2 ML VIAL IV ×2 (05:13→16:23)
[2024-11-26 06:11] LABS: Basophils Percent Auto 0.1 % (0.2-2.0); Eosinophils Percent Auto 0.1 % (0.9-7.0); Hematocrit 34.7 % (36.0-48.0); Hemoglobin 11.4 g/dL (12.0-16.0); Immature Granulocytes Abs Auto 0.05 10^3/uL (0.00-0.03); Immature Granulocytes Pct Auto 0.3 % (0.0-0.5); Lymphocytes Absolute Auto 0.8 10^3/uL (1.2-3.8); Lymphocytes Percent Auto 4.9 % (20.5-60.0); Mean Corpuscular HGB Conc 32.9 g/dL (29.9-35.2); Mean Corpuscular Hemoglobin 26.1 pg (26.7-34.0); Mean Corpuscular Volume 79.4 fL (81.0-99.0); Mean Platelet Volume 10.2 fL (9.5-13.5); Monocytes Absolute Auto 0.6 10^3/uL (0.3-0.8); Monocytes Percent Auto 3.7 % (1.7-12.0); Neutrophils Absolute Auto 15.3 10^3/uL (1.4-6.5); Neutrophils Percent Auto 90.9 % (43.0-75.0); Platelet Count 283 10^3/uL (150-450); Red Blood Count 4.37 10^6/uL (4.20-5.40); Red Cell Distribution Width 14.9 % (11.0-15.0); White Blood Count 16.8 10^3/uL (4.0-11.0)
[2024-11-26 06:23] LABS: Alanine Aminotransferase 10 U/L (14-59); Albumin Globulin Ratio 0.8; Albumin Level 3.7 g/dL (3.4-5.0); Alkaline Phosphatase 70 U/L (46-116); Aspartate Amino Transferase 21 U/L (15-37); BUN Creatinine Ratio 16.7; Bilirubin Total 0.7 mg/dL (0.2-1.0); Carbon Dioxide 24.6 mmol/L (21.0-32.0); Chloride 93 mmol/L (98-107); Estimated GFR (African America >60 (>=60 mL/min/1.73m^2); Estimated GFR (Non-African Ame >60 (>=60 mL/min/1.73m^2); Globulin 4.5 g/dL; Glucose 122 mg/dL (74-106); Sodium 129 mmol/L (136-145); Total Protein 8.2 g/dL (6.4-8.2)
[2024-11-26 06:25] LABS: Potassium 4.6 mmol/L (3.5-5.1)
[2024-11-26 06:33] LABS: Calcium 8.9 mg/dL (8.5-10.1)
--- NOTE | 2024-11-26 07:52 | PM.PN ---
Progress Note: Subjective Subjective Interval history: Patient has held down some broth this morning. No vomiting last night and nausea is greatly improved. She denies any current abdominal pain. No bowel movements or diarrhea. No other issues at this time. Exam Narrative Exam Narrative: General: Patient is alert, and oriented to person, place and time with normal affect, proper hygiene Skin: no visible rashes, or ulcers Head: atraumatic, acephalic Eyes: PERRLA, no nystagmus present, conjunctiva clear, no scleral icterus Ears: normal gross auditory acuity Heart: Normal rate and rhythm, no murmurs/rubs/gallops Lungs: no audible wheezes, crackles and normal breath sounds all lung quan Abdomen: hyperactive bowel sounds, no distension, guarding in the lower abdomen Musculoskeletal:no swelling bilateral lower extremities Neuro: CN II-X grossly intact Constitutional Vital Signs, click to edit/add: Last Vital Signs Temp 98.3 F 11/26/24 04:00 Pulse 76 11/26/24 04:00 Resp 16 11/26/24 04:00 BP 148/89 H 11/26/24 04:00 Pulse Ox 97 11/26/24 04:00 O2 Del Method Room Air 11/26/24 04:00 Progress Note: Objective Labs Labs: Short CBC 11/26/24 Range/Units 06:00 WBC 16.8 H (4.0-11.0) 10^3/uL Hgb 11.4 L (12.0-16.0) g/dL Hct 34.7 L (36.0-48.0) % Plt Count 283 (150-450) 10^3/uL BMP 11/26/24 06:00 Sodium 129 L Potassium 4.6 Chloride 93 L Carbon Dioxide 24.6 BUN 12.0 Creatinine 0.72 Glucose 122 H Calcium 8.9 Liver Function 11/26/24 Range/Units 06:00 Total Bilirubin 0.7 (0.2-1.0) mg/dL AST 21 (15-37) U/L ALT 10 L (14-59) U/L Alkaline Phosphatase 70 (46-116) U/L Albumin 3.7 (3.4-5.0) g/dL Progress Note: A&P Assessment and Plan (1) Acute ulcerative colitis without complications: Assessment and Plan: continue IV solumedrol, WBC's elevated due to steroid use. Monitor daily, IV Tylenol for pain, patient on clear diet only. Normal liver enzymes. (2) Nausea & vomiting: Assessment and Plan: continue with zofran, Phenergan. May add Reglan if needed Qualifiers: Vomiting type: unspecified Qualified Code(s): R11.2 - Nausea with vomiting, unspecified (3) Acute pancreatitis: Assessment and Plan: lipase was elevated to 501, down to 63 today. continue pain control, antiemetics. CT did not show any acute pancreatic changes. Most likely cause is the vomiting and colitis Qualifiers: Acute pancreatitis complication: unspecified Pancreatitis type: drug induced Qualified Code(s): K85.30 - Drug induced acute pancreatitis without necrosis or infection Plan Patient is a full code Most likely will require 1-2 more days of hospital necessary care, IVF, pain control and IV steroids
[2024-11-26 08:00] VITALS: BP 155/91; PULSE 73; TEMP 37.1; O2SAT 96
[2024-11-26] MEDS: MAGNESIUM SULFATE IN WATER 2 GM/50 ML PREMIX IV (10:01)
[2024-11-26] MEDS: PANTOPRAZOLE SODIUM 40 MG VIAL IV (10:01)
[2024-11-26 12:00] VITALS: BP 163/93; PULSE 67; TEMP 36.9; O2SAT 96
[2024-11-26] MEDS: ACETAMINOPHEN 1,000 MG/100 ML PREMIX 400 MG IV ×2 (14:33→21:13)
[2024-11-26 15:07] VITALS: BP 158/88; PULSE 64; TEMP 36.7; O2SAT 96
[2024-11-26 19:46] VITALS: BP 161/96; PULSE 68; TEMP 37.1; O2SAT 97
[2024-11-26] MEDS: PROMETHAZINE HCL 25 MG TABLET PO (21:20)
[2024-11-26 23:09] VITALS: BP 162/94; PULSE 63; TEMP 37.1; O2SAT 94
[2024-11-27 02:51] VITALS: BP 158/99; PULSE 65; TEMP 36.9; O2SAT 94
[2024-11-27] MEDS: LACTATED RINGER'S SOLUTION 1,000 ML 150 ML IV (02:57)
[2024-11-27] MEDS: PROMETHAZINE HCL 25 MG TABLET PO (02:59)
[2024-11-27] MEDS: ONDANSETRON PF 4 MG/2 ML VIAL IV ×4 (03:08→17:50)
[2024-11-27] MEDS: METHYLPREDNISOLONE SOD SUCC PF 125 MG/2 ML VIAL 60 MG IVP ×4 (05:19→23:28)
[2024-11-27 05:40] LABS: Basophils Percent Auto 0.1 % (0.2-2.0); Eosinophils Percent Auto 0.1 % (0.9-7.0); Hematocrit 36.1 % (36.0-48.0); Immature Granulocytes Abs Auto 0.06 10^3/uL (0.00-0.03); Immature Granulocytes Pct Auto 0.4 % (0.0-0.5); Lymphocytes Absolute Auto 0.6 10^3/uL (1.2-3.8); Lymphocytes Percent Auto 3.8 % (20.5-60.0); Mean Corpuscular HGB Conc 33.2 g/dL (29.9-35.2); Mean Corpuscular Volume 78.3 fL (81.0-99.0); Mean Platelet Volume 9.8 fL (9.5-13.5); Monocytes Absolute Auto 0.8 10^3/uL (0.3-0.8); Monocytes Percent Auto 5.4 % (1.7-12.0); Neutrophils Absolute Auto 13.5 10^3/uL (1.4-6.5); Neutrophils Percent Auto 90.2 % (43.0-75.0); Platelet Count 315 10^3/uL (150-450); Red Blood Count 4.61 10^6/uL (4.20-5.40); Red Cell Distribution Width 14.8 % (11.0-15.0); White Blood Count 14.9 10^3/uL (4.0-11.0)
[2024-11-27 06:03] LABS: Alanine Aminotransferase 14 U/L (14-59); Albumin Globulin Ratio 0.9; Albumin Level 3.7 g/dL (3.4-5.0); Alkaline Phosphatase 69 U/L (46-116); Aspartate Amino Transferase 17 U/L (15-37); BUN Creatinine Ratio 15.6; Bilirubin Total 0.7 mg/dL (0.2-1.0); Calcium 8.7 mg/dL (8.5-10.1); Carbon Dioxide 26.1 mmol/L (21.0-32.0); Chloride 93 mmol/L (98-107); Estimated GFR (African America >60 (>=60 mL/min/1.73m^2); Estimated GFR (Non-African Ame >60 (>=60 mL/min/1.73m^2); Globulin 4.1 g/dL; Glucose 126 mg/dL (74-106); Potassium 4.1 mmol/L (3.5-5.1); Sodium 129 mmol/L (136-145); Total Protein 7.8 g/dL (6.4-8.2)
--- OUTSIDE RECORDS SUMMARY | 2024-11-27 06:03 | XMS_ITS | CCD ---
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[facility]) Insert 1 suppository (12.5 mg total) into [...] 12/25/2023 01/27/2024 Discontinued (Therapy completed) peg 3350-sod sulf,ihku-uco-zkt 178.7-7.3-0.5 gram recon soln (1 source) Start: 02-27-2024 End: 03-08-2024 peg 3350-sod sulf,ehln-pus-vnt 178.7-7.3-0.5 gram recon soln Indications: Colitis due to Clostridioides difficile Take one container twice as directed by scheduled instructions 2 each 02/27/2024 03/08/2024 Discontinued penicillin v potassium 250 mg oral tablet (2 sources) Start: 10-18-2023 End: 11-09-2024 Penicillin V Potassium 250 mg tablet Discontinued 500 MG PO Every 6 hours 40 7 October 18, 2023 1:00am November 09, 2024 11:57am polyethylene glycol 3350 625938 mg / potassium chloride 2970 mg / sodium bicarbonate 6740 mg / sodium chloride 5860 mg / sodium sulfate 92144 mg powder for oral solution (1 source) [...] Reference Range Facility [facility]ang 11-21-2024 ---- Specimen: [id number] Received: 11/21/24 Status: LINO Juarez Num: [id number] Spec Type: Surgical Subm Dr: Belinda Medina MD Tissues: A Small Intestine - Biopsy/Polyp (SMALL BOWEL BX) B Colon Biopsy (RIGHT COLON BX) C Colon Biopsy (TRANSVERSE COLON BX) D Colon Biopsy (DESCENDING COLON BX) E Colon Biopsy (SIGMOID COLON BX) F Colon Biopsy (RECTAL BX) Procedures: /Bri, Gross/Micro L4/6 Age/ Patient Sex Location Account Attending Physician Kelli Lake 49/F [id number] Belinda Medina MD SPEC NUM: [id number] RECD: 11/21/24 STATUS: LINO JUAREZ NUM: [id number] CHANNING: 11/21/24 [facility] DR: Belinda Medina MD ENTERED: 11/21/24 [facility] DR: SARA TYPE: Surgical DEPT: S ENTERED BY: [id number] RECV BY: [id number] ORDERED: HE/15, Gross/Micro L4/6 ORDERED: HE/15, Gross/Micro [...] are identified E. Sigmoid colon biopsy: Specimen: [id number] Received: 11/21/24 Status: LINO Juarez Num: [id number] Spec Type: Surgical Subm Dr: Belinda Medina MD Tissues: A Small Intestine - Biopsy/Polyp (SMALL BOWEL BX) B Colon Biopsy (RIGHT COLON BX) C Colon Biopsy (TRANSVERSE COLON BX) D Colon Biopsy (DESCENDING COLON BX) E Colon Biopsy (SIGMOID COLON BX) F Colon Biopsy (RECTAL BX) Procedures: /, Gross/Micro /6 Patient: Kelli Lake [id number] (Continued) Specimen: [id number] Received: 11/21/24 (Continued) Pathological Diagnosis (Continued) Signed (signature on file) Rubin Strickland MD 11/22/24 1400 Specimen: [id number] Received: 11/21/24 Status: LINO Juarez Num: [id number] Spec Type: Surgical Subm Dr: Belinda Medina MD Tissues: A Small Intestine - Biopsy/Polyp (SMALL BOWEL BX) B Colon Biopsy (RIGHT COLON BX) C Colon Biopsy (TRANSVERSE COLON BX) D Colon Biopsy (DESCENDING COLON BX) E Colon Biopsy (SIGMOID COLON BX) F Colon Biopsy (RECTAL BX) Procedures: /, Gross/Micro L4/6 Patient: VenkateshglroiaKelli Jeannette [id number] (Continued) Specimen: [id number] Received: 11/21/24 (Continued) Pathological Diagnosis (Continued) ? [...] submitted in a single cassette. (1, ns, [id number] A) JG Part B is received in formalin labeled with the patients name, date of , and right colon BX are 2 edmondson-forrester, focally erythematous, friable, 0.4 and 0.5 cm in greatest dimension tissue strips. (more content not included)... Normal [facility] CBC AND AUTO DIFFon 05-31-20 24 ABSOLUTE BASOPHIL 0.0 X10E9/L Normal 0.0-0.2 [facility] Comment on above: Performed By: #### C ROMERO, CMP #### [facility] ([id number]) [address] [place] [address] 55647 ABSOLUTE NEUTROPHIL 8.6 X10E9/L High 1.5-6.6 [facility] Comment on above: Performed By: #### C ROMERO, CMP #### [facility] ([id number]) [address] [place] [address] 26274 Basophils/100 WBC (Bld) 0.2 % Normal [facility] Comment on above: Performed By: #### C ROMERO, CMP #### [facility] ([id number]) [address] [place] [address] 30983 Eosinophils (Bld) [#/Vol] 0.0 10*3/uL Normal 0.0-0.4 [facility] Comment on above: Performed By: #### C BCA, CMP #### [facility] ([id number]) [address] [place] [address] 02742 Eosinophils/100 WBC (Bld) 0.1 % Normal [facility] Comment on above: Performed By: #### C BCA, CMP #### [facility] ([id number]) [address] [place] [address] 10010 Erythrocyte distribution width (RBC) [Ratio] 15.5 % High 11.5-15.0 [facility] Comment on above: Performed By: #### C BCA, CMP #### [facility] ([id number]) [address] [place] [address] 47820 Hematocrit (Bld) [Volume fraction] 35.2 % Normal 35-47 [facility] Comment on above: Performed By: #### C BCA, CMP #### [facility] ([id number]) [address] [place] [address] 10749 Hemoglobin (Bld) [Mass/Vol] 11.3 g/dL Low 11.7-15.5 [facility] Comment on above: Performed By: #### C BCA, CMP #### [facility] ([id number]) [address] [place] [address] 22187 Lymphocytes (Bld) [#/Vol] 1.3 10*3/uL Normal 1.0-3.5 [facility] Comment on above: Performed By: #### C BCA, CMP #### [facility] ([id number]) [address] [place] [address] 43061 Lymphocytes/100 WBC (Bld) 11.4 % Normal [facility] Comment on above: Performed By: #### C BCA, CMP #### [facility] ([id number]) [address] [place] [address] 22584 MCH (RBC) [Entitic mass] 24.4 pg Low 27-34 [facility] Comment on above: Performed By: #### C BCA, CMP #### [facility] ([id number]) [address] [place] [address] 10668 MCHC (RBC) [Mass/Vol] 32.1 g/dL Normal 32-36 [facility] Comment on above: Performed By: #### C BCA, CMP #### [facility] ([id number]) [address] [place] [address] 27228 MCV (RBC) [Entitic vol] 76 fL Low 80-100 [facility] Comment on above: Performed By: #### C ROMERO, CMP #### [facility] ([id number]) [address] [place] [address] 18479 Monocytes (Bld) [#/Vol] 1.1 10*3/uL High 0-0.9 [facility] Comment on above: Performed By: #### C ROMERO, CMP #### [facility] ([id number]) [address] [place] [address] 73967 Monocytes/100 WBC (Bld) 10.2 % Normal [facility] Comment on above: Performed By: #### C ROMERO, CMP #### [facility] ([id number]) [address] [place] [address] 82365 Neutrophils/100 WBC (Bld) 78.1 % Normal [facility] Comment on above: Performed By: #### C ROMERO, CMP #### [facility] ([id number]) [address] [place] [address] 61974 Platelet mean volume (Bld) [Entitic vol] 7.7 fL Normal 7-12 [facility] Comment on above: Performed By: #### C ROMERO, CMP #### [facility] ([id number]) [address] [place] [address] 48838 Platelets (Bld) [#/Vol] 300 10*3/uL Normal 150-450 [facility] Comment on above: Performed By: #### C BCA, CMP #### [facility] ([id number]) [address] [place] [address] 43261 RBC COUNT 4.62 X10E12/L Normal 3.80-5.20 [facility] Comment on above: Performed By: #### C BCA, CMP #### [facility] ([id number]) [address] [place] [address] 17746 WBC (Bld) [#/Vol] 11.0 10*3/uL Normal 4.0-11.0 [facility] Comment on above: Performed By: #### C BCA, CMP #### [facility] ([id number]) [address] [place] [address] 40720 COMPREHENSIVE METABOLIC PANE Hoang 05-31-2024 Albumin [Mass/Vol] 3.9 g/dL Normal 3.2-5.3 [facility] Comment on above: Performed By: #### C BCA, CMP #### [facility] ([id number]) [address] [place] [address] 30447 ALP [Catalytic activity/Vol] 44 U/L Normal 39-130 [facility] Comment on above: Performed By: #### C BCA, CMP #### [facility] ([id number]) [address] [place] [address] 89622 ALT [Catalytic activity/Vol] 13 U/L Normal 0-31 [facility] Comment on above: Performed By: #### C BCA, CMP #### [facility] ([id number]) [address] [place] [address] 39602 Anion gap [Moles/Vol] 7 mmol/L Normal 5-15 [facility] Comment on above: Performed By: #### C BCA, CMP #### [facility] ([id number]) [address] [place] [address] 28517 AST [Catalytic activity/Vol] 15 U/L Normal 0-41 [facility] Comment on above: Performed By: #### C BCA, CMP #### [facility] ([id number]) [address] [place] [address] 49964 Bilirubin [Mass/Vol] 1.1 mg/dL Normal 0.3-1.2 [facility] Comment on above: Performed By: #### C BCA, CMP #### [facility] ([id number]) [address] [place] [address] 15145 Calcium [Mass/Vol] 8.5 mg/dL Normal 8.5-10.5 [facility] Comment on above: Performed By: #### C BCA, CMP #### [facility] ([id number]) [address] [place] [address] 89922 Chloride [Moles/Vol] 93 mmol/L Low 98-109 [facility] Comment on above: Performed By: #### C BCA, CMP #### [facility] ([id number]) [address] [place] [address] 10651 CO2 [Moles/Vol] 28 mmol/L Normal 22-32 [facility] Comment on above: Performed By: #### C BCA, CMP #### [facility] ([id number]) [address] [place] [address] 71841 Creatinine [Mass/Vol] 0.84 mg/dL Normal 0.40-1.00 [facility] Comment on above: Result Comment: METH OD TRACEABLE TO IDMS STANDARD Performed By: #### C ROMERO, CMP #### [facility] ([id number]) [address] [place] [address] 24922 GFR/1.73 sq M.predicted among non-blacks MDRD (S/P/Bld) [Vol rate/Area] 86 mL/min/{1.73_m2} Normal >59 [facility] Comment on above: Result Comment: Reported eGFR is based on the CKD-EPI 2020 equation that does not use a race coefficient. Performed By: #### C BCA, CMP #### [facility] ([id number]) [address] [place] [address] 21471 Glucose [Mass/Vol] 110 mg/dL High 65-99 [facility] Comment on above: Performed By: #### C BCA, CMP #### [facility] ([id number]) [address] [place] [address] 13093 Potassium [Moles/Vol] 3.1 mmol/L Low 3.5-5.0 [facility] Comment on above: Performed By: #### C BCA, CMP #### [facility] ([id number]) [address] [place] [address] 64064 Protein [Mass/Vol] 7.2 g/dL Normal 6.0-8.0 [facility] Comment on above: Performed By: #### C BCA, CMP #### [facility] ([id number]) [address] [place] [address] 63971 Sodium [Moles/Vol] 128 mmol/L Low 134-146 [facility] Comment on above: Performed By: #### C BCA, CMP #### [facility] ([id number]) [address] [place] [address] 82184 Urea nitrogen [Mass/Vol] 19 mg/dL Normal 5-23 [facility] Comment on above: Performed By: #### C BCA, CMP #### [facility] ([id number]) [address] [place] [address] ABDOMEN AND PELVIS WO CON Ton [...] Carlos Escobedo on 05/31/2024 10:00 AM Normal [facility] Surgical Pathologyon 17- 024 Surgical Pathology Normal [facility] Comment on above: Result Comment: [facility] [address] [place] [address] Surgical Pathology Consultation Patient Name:KELLI LAKE:1975 (Age: 48)Gender:FTaken:4Reported:4Physician(s):Geovanni Rivers MD ([phone])Copy To: Rec. #:[id number]: #[id number] Final Pathologic Diagnosis 1. Transverse colon biopsy: [...] Out ao/4Alian Camara MD Interpretation performed at [facility], [address] [place] [address], License number: [id number]. Clinical History Colitis. Gross Description 1. Received in formalin labeled ALEKSANDRA, #1: Transverse BX are 3 edmondson bits/strips of soft tissue, ranging from 0.5-0.9 cm in greatest dimension. Filtered and submitted in a single cassette. (1, ns, [id number], m7) MG 2. Received in formalin labeled ALEKSANDRA, #2: Sigmoid are 5 edmondson bits of soft tissue, ranging from 0.2-0.3 cm in greatest dimension. Filtered and submitted in a single cassette. (1, ns, [id number], m7) MG mj/03/08/2024O Specimen(s) Received 1: Transverse colon biopsies 2: Sigmoid colon biopsy Fee Codes(s): 1; 53974 2; 90466 CBC AND AUTO DIFFon 02-09- 24 ABSOLUTE BASOPHIL 0.0 X10E9/L Normal 0.0-0.2 [facility] Comment on above: Performed By: #### Marguerite JASSO, 20433-2, CMP, 3040-3 #### [facility] ([id number]) [address] [place] [address] 76189 ABSOLUTE NEUTROPHIL 11.5 X10E9/L High 1.5-6.6 [facility] Comment on above: Performed By: #### Marguerite JASSO, 34190-7, CMP, 0-3 #### [facility] ([id number]) [address] [place] [address] 90204 Basophils/100 WBC (Bld) 0.2 % Normal [facility] Comment on above: Performed By: #### Marguerite JASSO, 34871-8, CMP, 3040-3 #### [facility] ([id number]) [address] [place] [address] 05819 Eosinophils (Bld) [#/Vol] 0.0 10*3/uL Normal 0.0-0.4 [facility] Comment on above: Performed By: #### Marguerite JASSO, 17233-6, CMP, 0-3 #### [facility] ([id number]) [address] [place] [address] 79447 Eosinophils/100 WBC (Bld) 0.1 % Normal [facility] Comment on above: Performed By: #### Marguerite JASSO, 67319-8, CMP, 3040-3 #### [facility] ([id number]) [address] [place] [address] 36932 Erythrocyte distribution width (RBC) [Ratio] 19.1 % High 11.5-15.0 [facility] Comment on above: Performed By: #### Marguerite JASSO, 08907-4, CMP, 3040-3 #### [facility] ([id number]) [address] [place] [address] 20721 Hematocrit (Bld) [Volume fraction] 36.4 % Normal 35-47 [facility] Comment on above: Performed By: #### Marguerite JASSO, 83858-2, CMP, 3040-3 #### [facility] ([id number]) [address] [place] [address] 97266 Hemoglobin (Bld) [Mass/Vol] 12.2 g/dL Normal 11.7-15.5 [facility] Comment on above: Performed By: #### Marguerite JASSO, 50876-4, CMP, 0-3 #### [facility] ([id number]) [address] [place] [address] 86979 Lymphocytes (Bld) [#/Vol] 0.7 10*3/uL Low 1.0-3.5 [facility] Comment on above: Performed By: #### Marguerite JASSO, 48069-8, CMP, 3040-3 #### [facility] ([id number]) [address] [place] [address] 22227 Lymphocytes/100 WBC (Bld) 5.7 % Normal [facility] Comment on above: Performed By: #### Marguerite JASSO, 24615-9, CMP, 3040-3 #### [facility] ([id number]) [address] [place] [address] 32968 MCH (RBC) [Entitic mass] 24.9 pg Low 27-34 [facility] Comment on above: Performed By: #### Marguerite JASSO, 37669-9, CMP, 3040-3 #### [facility] ([id number]) [address] [place] [address] 00340 MCHC (RBC) [Mass/Vol] 33.5 g/dL Normal 32-36 [facility] Comment on above: Performed By: #### Marguerite JASSO, 46037-9, CMP, 3040-3 #### [facility] ([id number]) [address] [place] [address] 41617 MCV (RBC) [Entitic vol] 74 fL Low 80-100 [facility] Comment on above: Performed By: #### Marguerite JASSO, 11902-9, CMP, 3040-3 #### [facility] ([id number]) [address] [place] [address] 38580 Monocytes (Bld) [#/Vol] 0.4 10*3/uL Normal 0-0.9 [facility] Comment on above: Performed By: #### Marguerite BCA, 42496-2, CMP, 3040-3 #### [facility] ([id number]) [address] [place] [address] 75496 Monocytes/100 WBC (Bld) 3.2 % Normal [facility] Comment on above: Performed By: #### Marguerite BCA, 20378-3, CMP, 3040-3 #### [facility] ([id number]) [address] [place] [address] 04375 Neutrophils/100 WBC (Bld) 90.8 % Normal [facility] Comment on above: Performed By: #### Marguerite BCA, 14703-6, CMP, 3040-3 #### [facility] ([id number]) [address] [place] [address] 38397 Platelet mean volume (Bld) [Entitic vol] 8.1 fL Normal 7-12 [facility] Comment on above: Performed By: #### C BCA, 69755-6, CMP, 3040-3 #### [facility] ([id number]) [address] [place] [address] 58635 Platelets (Bld) [#/Vol] 435 10*3/uL Normal 150-450 [facility] Comment on above: Performed By: #### C BCA, 49156-6, CMP, 3040-3 #### [facility] ([id number]) [address] [place] [address] 77446 RBC COUNT 4.90 X10E12/L Normal 3.80-5.20 [facility] Comment on above: Performed By: #### Marguerite BCA, 08628-7, CMP, 3040-3 #### [facility] ([id number]) [address] [place] [address] 76132 WBC (Bld) [#/Vol] 12.6 10*3/uL High 4.0-11.0 [facility] Comment on above: Performed By: #### C BCA, 62980-3, CMP, 3040-3 #### [facility] ([id number]) [address] [place] [address] 58793 COMPREHENSIVE METABOLIC PANE Hoang 02-10-2024 Albumin [Mass/Vol] 4.1 g/dL Normal 3.2-5.3 [facility] Comment on above: Performed By: #### Marguerite BCA, 94342-0, CMP, 3040-3 #### [facility] ([id number]) [address] [place] [address] 63985 ALP [Catalytic activity/Vol] 53 U/L Normal 39-130 [facility] Comment on above: Performed By: #### C BCA, 24724-5, CMP, 3040-3 #### [facility] ([id number]) [address] [place] [address] 83265 ALT [Catalytic activity/Vol] 10 U/L Normal 0-31 [facility] Comment on above: Performed By: #### C BCA, 70792-6, CMP, 3040-3 #### [facility] ([id number]) [address] [place] [address] 20460 Anion gap [Moles/Vol] 8 mmol/L Normal 5-15 [facility] Comment on above: Performed By: #### C BCA, 91815-3, CMP, 3040-3 #### [facility] ([id number]) [address] [place] [address] 35117 AST [Catalytic activity/Vol] 17 U/L Normal 0-41 [facility] Comment on above: Performed By: #### Marguerite BCA, 99265-4, CMP, 3040-3 #### [facility] ([id number]) [address] [place] [address] 85847 Bilirubin [Mass/Vol] 1.0 mg/dL Normal 0.3-1.2 [facility] Comment on above: Performed By: #### Marguerite BCA, 87620-8, CMP, 3040-3 #### [facility] ([id number]) [address] [place] [address] 67420 Calcium [Mass/Vol] 8.5 mg/dL Normal 8.5-10.5 [facility] Comment on above: Performed By: #### C BCA, 15947-4, CMP, 3040-3 #### [facility] ([id number]) [address] [place] [address] 85670 Chloride [Moles/Vol] 99 mmol/L Normal 98-109 [facility] Comment on above: Performed By: #### Marguerite BCA, 55397-5, CMP, 3040-3 #### [facility] ([id number]) [address] [place] [address] 22314 CO2 [Moles/Vol] 24 mmol/L Normal 22-32 [facility] Comment on above: Performed By: #### C BCA, 13713-5, CMP, 3040-3 #### [facility] ([id number]) [address] [place] [address] 24076 Creatinine [Mass/Vol] 0.71 mg/dL Normal 0.40-1.00 [facility] Comment on above: Result Comment: METH OD TRACEABLE TO IDMS STANDARD Performed By: #### C ROMERO, 69381-7, CMP, 0-3 #### [facility] ([id number]) [address] [place] [address] 34913 eGFR (CKD-EPI) NON-RACE DEPENDENT >90 Normal >59 [facility] Comment on above: Result Comment: Reported eGFR is based on the CKD-EPI 2020 equation that does not use a race coefficient. Performed By: #### C BCA, 44552-0, CMP, 3040-3 #### [facility] ([id number]) [address] [place] [address] 74911 Glucose [Mass/Vol] 114 mg/dL High 65-99 [facility] Comment on above: Performed By: #### C BCA, 51776-6, CMP, 0-3 #### [facility] ([id number]) [address] [place] [address] 33767 Potassium [Moles/Vol] 3.7 mmol/L Normal 3.5-5.0 [facility] Comment on above: Performed By: #### C BCA, 68457-5, CMP, 3040-3 #### [facility] ([id number]) [address] [place] [address] 85514 Protein [Mass/Vol] 7.6 g/dL Normal 6.0-8.0 [facility] Comment on above: Performed By: #### C BCA, 58763-1, CMP, 3040-3 #### [facility] ([id number]) [address] [place] [address] 23722 Sodium [Moles/Vol] 131 mmol/L Low 134-146 [facility] Comment on above: Performed By: #### C ROMERO, 18169-0, CMP, 3040-3 #### [facility] ([id number]) [address] [place] [address] 09939 Urea nitrogen [Mass/Vol] 11 mg/dL Normal 5-23 [facility] Comment on above: Performed By: #### C ROMERO, 15168-5, CMP, 3040-3 #### [facility] ([id number]) [address] [place] [address] [id number] HCG ( test) Ql (U)o n 02-10-2024 Beta HCG ( test) Ql (U) Negative Normal NEG [facility] Comment on above: Performed By: #### 2 106-3 #### [facility] ([id number]) [address] [place] [id number] LIPASEon 02-10-2024 Lipase [Catalytic activity/Vol] 42 U/L High 17-40 [facility] Comment on above: Performed By: #### C ROMERO, 77717-1, CMP, 3040-3 #### [facility] ([id number]) [address] [place] [address] [id number] Lactate (P caroline) [Moles/Vol]o n 02-10-2024 LACTATE W/REFLEX 1.1 mmol/L Normal 0.4-2.[address] [facility] Comment on above: Result Comment: Result did not trigger repeat Lactate, re-order if needed. Performed By: #### C BCA, 27141-6, CMP, 3040-3 #### [facility] ([id number]) [address] [place] [address], [place] [address] URN MACROSCOPIC NURon 2023 BILIRUBIN MEÑO Small Abnormal NEG [facility] Comment on above: Performed By: #### N UM #### [facility] ([id number]) [address] [place] [address] BLOOD/HGB MEÑO Negative Normal NEG [facility] Comment on above: Performed By: #### N UM #### [facility] ([id number]) [address] [place] [address] GLUCOSE MEÑO Negative Normal NEG [facility] Comment on above: Performed By: #### N UM #### [facility] ([id number]) [address] [place] [address] KETONES MEÑO 80 mg/dL Abnormal NEG [facility] Comment on above: Performed By: #### N UM #### [facility] ([id number]) [address] [place] [address] [place] [address] LEUKOCYTE ESTERASE MEÑO Negative Normal NEG [facility] Comment on above: Performed By: #### N UM #### [facility] ([id number]) [address] [place] [address] [place] [address] NITRITE MEÑO Negative Normal NEG [facility] Comment on above: Performed By: #### N UM #### [facility] ([id number]) [address] [place] [address] [place] [address] PH MEÑO 6.0 Normal 5.0-8.5 [facility] Comment on above: Performed By: #### N UM #### [facility] ([id number]) [address] [place] [address] PROTEIN MEÑO 30 mg/dL Abnormal NEG [facility] Comment on above: Performed By: #### N UM #### [facility] ([id number]) [address] [place] [address] [place] [address] SPECIFIC GRAVITY MEÑO 1.025 Normal 1.003-1.035 [facility] Comment on above: Performed By: #### N UM #### [facility] ([id number]) [address] [place] [address], [place] [address] UROBILINOGEN MEÑO 0.2 eu/dL Normal <1.[address] [facility] Comment on above: Performed By: #### N UM #### [facility] ([id number]) [address] [place] [address], [place] [address] Multiple labsOrdered By: Stacia Villa on 01-16-2024 [facility] BASIC METABOLIC PANLon 01-06 Anion gap [Moles/Vol] 8 mmol/L Normal 5-15 [facility] Comment on above: Performed By: #### B MP #### [facility] ([id number]) [address], [address] [place] [address] Calcium [Mass/Vol] 8.6 mg/dL Normal 8.5-10.5 [facility] Comment on above: Performed By: #### B MP #### [facility] ([id number]) [address], [address] [place] [address] Chloride [Moles/Vol] 105 mmol/L Normal 98-109 [facility] Comment on above: Performed By: #### B MP #### [facility] ([id number]) [address], [address] [place] [address] CO2 [Moles/Vol] 25 mmol/L Normal 22-32 [facility] Comment on above: Performed By: #### B MP #### [facility] ([id number]) [address], [address] [place] [address] Creatinine [Mass/Vol] 0.74 mg/dL Normal 0.40-1.00 [facility] Comment on above: Result Comment: METH OD TRACEABLE TO IDMS STANDARD Performed By: #### B MP #### [facility] ([id number]) [address], [address] [place] [address] eGFR (CKD-EPI) NON-RACE DEPENDENT >90 Normal >59 [facility] Comment on above: Result Comment: Reported eGFR is based on the CKD-EPI 2020 equation that does not use a race coefficient. Performed By: #### B MP #### [facility] ([id number]) [address], [address] [place] [address] Glucose [Mass/Vol] 87 mg/dL Normal 65-99 [facility] Comment on above: Performed By: #### B MP #### [facility] ([id number]) [address], [address] [place] [address] Potassium [Moles/Vol] 3.9 mmol/L Normal 3.5-5.0 [facility] Comment on above: Performed By: #### B MP #### [facility] ([id number]) [address], [address] [place] [address] Sodium [Moles/Vol] 138 mmol/L Normal 134-146 [facility] Comment on above: Performed By: #### B MP #### [facility] ([id number]) [address] [address] [place] [address] Urea nitrogen [Mass/Vol] 5 mg/dL Normal 5-23 [facility] Comment on above: Performed By: #### B MP #### [facility] ([id number]) [address] [place] [address] Basic Metabolic Panelon 05- Anion gap [Moles/Vol] 8 mmol/L 5 - 15 mmol/L [facility] Calcium [Mass/Vol] 8.6 mg/dL 8.5 - 10. 5 mg/dL [facility] Chloride [Moles/Vol] 105 mmol/L 98 - 109 mmol/L [facility] CO2 [Moles/Vol] 25 mmol/L 22 - 32 mmol/L [facility] Creatinine [Mass/Vol] 0.74 mg/dL 0.40 - 1.00 mg/dL [facility] Comment on above: METHOD TRACEABLE TO [facility] STANDARD eGFR (CKD-EPI)non-race dependent - PINF [facility] Comment on above: Reported eGFR is based on the CKD-EPI 2020 equation that does not use a race coefficient. Glucose [Mass/Vol] 87 mg/dL 65 - 99 mg/dL [facility] Potassium [Moles/Vol] 3.9 mmol/L 3.5 - 5.0 mmol/L [facility] Sodium [Moles/Vol] 138 mmol/L 134 - 146 mmol/L [facility] Urea nitrogen [Mass/Vol] 5 mg/dL 5 - 23 mg/dL [facility] INFLUENZA A AND B AGon 08-[facility] Normal [facility] Comment on above: Result Comment: Nega tive for Flu A protein angiten. Infection due to Flu A cannot be ruled out. Flu A angiten in the sample may be below the detection limit of the test. Performed By: #### I NFLUAB #### [facility] [address] [place] [address] Jessieyamile Brannonen INFLUBNEGH SEE BELOW Normal [facility] Comment on above: Result Comment: Nega tive for Flu B protein antigen. Infection due to Flu B cannot be ruled out. Flu B antigen in the sample may be below the detection limit of the test. Performed By: #### I NFLUAB #### [facility] [address] [place] [address] [facility] Negative Normal NEGATIVE SEE COMMENT [facility] Comment on above: Performed By: #### I NFLUAB #### [facility] [address] [place] [address] Jessie Oksana INFLUENZA B AG Negative Normal NEGATIVE SEE COMMENT [facility] Comment on above: Performed By: #### I NFLUAB #### [facility] [address] [place] [address] Jessie Gandhi INTERNAL CONTROLS Within Normal Limits Normal Wi thin Normal Limits [facility] Comment on above: Performed By: #### I NFLUAB #### [facility] [address] [address] Jessie Gandhi Vital Signs Date Time Vital Sign Value Performing Clinician Facility 11-21-2024 11:05-0400 Diastolic blood pressure 77 mm[Hg] Geovanni Berniehas DO Work Phone: [facility] 11-21-2024 11:05-0400 Heart rate 62 /min Geovanni Yuhas DO Work Phone: [facility] 11-21-2024 11:05-0400 Respiratory rate 16 /min Geovanni Yuhas DO Work Phone: [facility] 11-21-2024 11:05-0400 SaO2% (BldA) [Mass fraction] 100 % Geovanni Yuhas DO Work Phone: [facility] 11-21-2024 11:05-0400 Systolic blood pressure 117 mm[Hg] Geovanni Yuhas DO Work Phone: [facility] 11-21-2024 08:21-0400 Body height 154.94 cm Geovanni Yuhas DO Work Phone: [facility] 11-21-2024 08:21-0400 Body weight 61.23 kg Geovanni Yuhas DO Work Phone: [facility] 06-27-2024 16:39-0500 Diastolic blood pressure 70 mm[Hg] Geovanni Yuhas DO Work Phone: [facility] 06-27-2024 16:39-0500 Systolic blood pressure 96 mm[Hg] [facility] 06-27-2024 15:58-0500 Body height 154.9 cm Geovanni Yuhas DO Work Phone: [facility] 06-27-2024 15:58-0500 Body mass index (BMI) [Ratio] 24.75 kg/m2 Geovanni Yuhas DO Work Phone: [facility] 06-27-2024 15:58-0500 Body temperature 98.1 [degF] Geovanni Gavirias DO Work Phone: [facility] 06-27-2024 15:58-0500 Body weight 59.42 kg Geovanni Gavirias DO Work Phone: [facility] 06-27-2024 15:58-0500 Heart rate 72 /min Geovanni Gavirias DO Work Phone: [facility] 06-27-2024 15:58-0500 Respiratory rate 18 /min Geovanni Rivers DO Work Phone: [facility] 06-27-2024 15:58-0500 SaO2% (BldA) [Mass fraction] 98 % Geovanni Rivers DO Work Phone: [facility] 05-31-2024 16:37-0400 Body height 154.9 cm Geovanni Rivers DO Work Phone: [facility] 05-31-2024 16:37-0400 Body mass index (BMI) [Ratio] 23.83 kg/m2 Geovanni Rivers DO Work Phone: [facility] 05-31-2024 16:37-0400 Body temperature 98.1 [degF] Geovanni Rivers DO Work Phone: [facility] 05-31-2024 16:37-0400 Body weight 57.2 kg Geovanni Rivers DO Work Phone: [facility] 05-31-2024 16:37-0400 Diastolic blood pressure 60 mm[Hg] Geovanni Gavirias DO Work Phone: [facility] 05-31-2024 16:37-0400 Heart rate 79 /min Geovanni Rivers DO Work Phone: [facility] 05-31-2024 16:37-0400 SaO2% (BldA) [Mass fraction] 97 % Geovanni Gavirias DO Work Phone: [facility] 05-31-2024 16:37-0400 Systolic blood pressure 120 mm[Hg] Geovanni Gavirias DO Work Phone: [facility] 04-19-2024 14:37-0400 Diastolic blood pressure 48 mm[Hg] Geovanni Gibbshas DO Work Phone: [facility] 04-19-2024 14:37-0400 Systolic blood pressure 100 mm[Hg] Geovanni Gavirias DO Work Phone: [facility] 04-19-2024 14:34-0400 Body height 154.9 cm Geovanni Gavirias DO Work Phone: [facility] 04-19-2024 14:34-0400 Body mass index (BMI) [Ratio] 25.47 kg/m2 Geovanni Gavirias DO Work Phone: [facility] 04-19-2024 14:34-0400 Body temperature 97.81 [degF] Geovanni Gavirias DO Work Phone: [facility] 04-19-2024 14:34-0400 Body weight 61.15 kg Geovanni Gavirias DO Work Phone: [facility] 04-19-2024 14:34-0400 Heart rate 82 /min Geovanni Gavirias DO Work Phone: [facility] 04-19-2024 14:34-0400 Respiratory rate 18 /min Geovanni Gavirias DO Work Phone: [facility] 04-19-2024 14:34-0400 SaO2% (BldA) [Mass fraction] 99 % Geovanni Gavirias DO Work Phone: [facility] 03-16-2024 11:17-0400 Body height 154.9 cm Geovanni Gavirias DO Work Phone: [facility] 03-16-2024 11:17-0400 Body mass index (BMI) [Ratio] 24.96 kg/m2 Geovanni Rivers DO Work Phone: [facility] 03-16-2024 11:17-0400 Body temperature 98.2 [degF] Geovanni Gavirias DO Work Phone: [facility] 03-16-2024 11:17-0400 Body weight 59.92 kg Geovanni Gavirias DO Work Phone: [facility] 03-16-2024 11:17-0400 Diastolic blood pressure 80 mm[Hg] Geovanni Rivers DO Work Phone: [facility] 03-16-2024 11:17-0400 Heart rate 71 /min Geovanni Rivers DO Work Phone: [facility] 03-16-2024 11:17-0400 SaO2% (BldA) [Mass fraction] 98 % Geovanni Rivers DO Work Phone: [facility] 03-16-2024 11:17-0400 Systolic blood pressure 100 mm[Hg] Geovanni Rivers DO Work Phone: [facility] 03-07-2024 12:07-0400 Body height 156.8 cm Pmh 1 [facility] 03-07-2024 12:07-0400 Body mass index (BMI) [Ratio] 24.34 kg/m2 Pmh 1 [facility] 03-07-2024 12:07-0400 Body weight 59.88 kg Pmh 1 [facility] 02-08-2024 10:25-0400 Diastolic blood pressure 68 mm[Hg] Geovanni Rivers DO Work Phone: [facility] 02-08-2024 10:25-0400 Systolic blood pressure 94 mm[Hg] Geovanni Gavirias DO Work Phone: [facility] 02-08-2024 09:35-0400 Body height 154.9 cm Geovanni Rivers DO Work Phone: [facility] 02-08-2024 09:35-0400 Body mass index (BMI) [Ratio] 25.07 kg/m2 Geovanni Rivers DO Work Phone: [facility] 02-08-2024 09:35-0400 Body temperature 98.1 [degF] Geovanni Rivers DO Work Phone: [facility] 02-08-2024 09:35-0400 Body weight 60.19 kg Geovanni Rivers DO Work Phone: [facility] 02-08-2024 09:35-0400 Heart rate 78 /min Geovanni Rivers DO Work Phone: [facility] 02-08-2024 09:35-0400 Respiratory rate 18 /min Geovanni Rivers DO Work Phone: [facility] 02-08-2024 09:35-0400 SaO2% (BldA) [Mass fraction] 96 % Geovanni Rivers DO Work Phone: [facility] 01-27-2024 14:41-0400 Body height 154.9 cm Cande Rand APRN-OFFICE MESSENGER Work Phone: [facility] 01-27-2024 14:41-0400 Body mass index (BMI) [Ratio] 26.07 kg/m2 Cande Rand BIKE TECHNICIAN-OFFICE MESSENGER Work Phone: [facility] 01-27-2024 14:41-0400 Body temperature 97.3 [degF] Cande Rand APRN-OFFICE MESSENGER Work Phone: [facility] 01-27-2024 14:41-0400 Body weight 62.6 kg Cande Rand APRN-OFFICE MESSENGER Work Phone: [facility] 01-27-2024 14:41-0400 Diastolic blood pressure 60 mm[Hg] Cande Rand APRN-OFFICE MESSENGER Work Phone: [facility] 01-27-2024 14:41-0400 Heart rate 70 /min Cande VU Work Phone: [facility] 01-27-2024 14:41-0400 Respiratory rate 12 /min Cande BACKOFFICE MESSENGER Work Phone: [facility] 01-27-2024 14:41-0400 SaO2% (BldA) [Mass fraction] 99 % Cande VU Work Phone: [facility] 01-27-2024 14:41-0400 Systolic blood pressure 112 mm[Hg] Cande BACKOFFICE MESSENGER Work Phone: [facility] 01-07-2024 09:36-0400 Body height 154.9 cm Cande BACKOFFICE MESSENGER Work Phone: [facility] 01-07-2024 09:36-0400 Body mass index (BMI) [Ratio] 27.21 kg/m2 Cande BACKOFFICE MESSENGER Work Phone: [facility] 01-07-2024 09:36-0400 Body temperature 98.29 [degF] Cande VU Work Phone: [facility] 01-07-2024 09:36-0400 Body weight 65.32 kg Cande BACKOFFICE MESSENGER Work Phone: [facility] 01-07-2024 09:36-0400 Diastolic blood pressure 62 mm[Hg] Cande BACKOFFICE MESSENGER Work Phone: [facility] 01-07-2024 09:36-0400 Heart rate 69 /min Cande VU Work Phone: [facility] 01-07-2024 09:36-0400 SaO2% (BldA) [Mass fraction] 96 % Cande BACKOFFICE MESSENGER Work Phone: [facility] 01-07-2024 09:36-0400 Systolic blood pressure 102 mm[Hg] Cande Rand BIKE TECHNICIAN-OFFICE MESSENGER Work Phone: [facility] Encounters Encounter Date Encounter Type Care Provider Facility Start: 11-21-2024 Non-patient / Non-visit Geovanni parada DO Work Phone: [facility] Work Phone: Start: 11-21-2024 End: 11-21-2024 Admission to same day surgery center Geovanni Rivers DO Work Phone: [facility] Work Phone: Start: 11-21-2024 End: 11-21-2024 ambulatory Geovanni Rivers DO Work Phone: [facility] Work Phone: Start: 11-09-2024 End: 11-09-2024 ambulatory [facility] Work Phone: Start: 11-09-2024 End: 11-09-2024 Patient encounter procedure [facility] Work Phone: Start: 08-08-2024 End: 08-08-2024 ambulatory [facility] Start: 06-27-2024 End: 06-27-2024 Office outpatient visit 25 minutes Geovanni Rivers DO Work Phone: [facility] - [facility] Comment on above: IBD (inflammatory mira wel disease); Heartburn Start: 06-27-2024 End: 06-27-2024 ambulatory [facility] Start: 06-08-2024 End: 06-09-2024 Telephone encounter Julia Boss CMA [facility] Start: 05-31-2024 End: 05-31-2024 Office outpatient visit 25 minutes [facility] DO [facility] Comment on above: Ulcerative rectosigm oiditis without complication ([facility]) (Primary Dx); IBD (inflammatory bowel disease); Heartburn; Nausea and vomiting, unspecified vomiting type; Hyponatremia with extracellular fluid depletion Start: 05-31-2024 End: 05-31-2024 ambulatory [facility] Start: 05-31-2024 End: 05-31-2024 Emergency department patient visit [facility] Start: 05-27-2024 End: 05-27-2024 ambulatory Mandy Polo RN [facility] Start: 05-02-2024 End: 05-02-2024 Telephone encounter Herminio Leos CMA [facility] Start: 05-01-2024 End: 05-03-2024 Telephone encounter Herminio Leos CMA [facility] Start: 04-19-2024 End: 04-19-2024 Office outpatient visit 25 minutes Geovanni Rivers DO Work Phone: [facility] Comment on above: IBD (inflammatory mira wel disease) (Primary Dx) Start: 04-19-2024 End: 04-19-2024 ambulatory [facility] Start: 03-16-2024 End: 03-16-2024 Office outpatient visit 25 minutes Geovanni Rivers DO Work Phone: [facility] Comment on above: IBD (inflammatory mira wel disease) (Primary Dx); Colitis due to Clostridioides difficile Start: 03-16-2024 End: 03-16-2024 ambulatory [facility] Start: 03-08-2024 End: 03-08-2024 Evaluation and management of inpatient [facility] Start: 03-07-2024 End: 03-07-2024 ambulatory [facility] Pat Phone Call Provider 1 [facility] Start: 03-07-2024 End: 03-07-2024 ambulatory [facility] Start: 02-10-2024 End: 02-10-2024 Emergency department patient visit [facility] Start: 02-08-2024 End: 02-08-2024 [facility]ulatory [facility] Start: 02-08-2024 End: 02-08-2024 Office outpatient visit 25 minutes Geovanni Rivers DO Work Phone: [facility] Comment on above: Colitis (Primary Dx) ; Hypotension, unspecified hypotension type Start: 01-27-2024 End: 01-27-2024 Office outpatient visit 15 minutes Cande Rand BIKE TECHNICIAN-OFFICE MESSENGER Work Phone: [facility] Comment on above: Colitis due to Clost ridioides difficile (Primary Dx) Start: 01-27-2024 End: 01-27-2024 ambulatory [facility] Start: 01-25-2024 End: 01-25-2024 Orders Only Not In System Ref Prov [facility] Start: 01-24-2024 End: 01-24-2024 Refill Felisha Camille [facility] Start: 01-07-2024 End: 01-08-2024 ambulatory [facility] Start: 01-07-2024 End: 01-07-2024 Office outpatient visit 15 minutes Cande Rand BIKE TECHNICIAN-OFFICE MESSENGER Work Phone: [facility] Comment on above: Colitis (Primary Dx) ; Hypokalemia; Reactive depression; Screen for colon cancer Start: 01-07-2024 End: 01-07-2024 ambulatory [facility] Start: 08-27-2019 End: 08-27-2019 Patient [...] Adult depression scr eening assessment Cande Rand BIKE TECHNICIAN-OFFICE MESSENGER Work Phone: Start: 01-16-2024 MULTIPLE LABS Not In Sy stem Ref Prov Start: 01-07-2024 Follow-up visit Follow-up [facility] Start: 01-07-2024 Adult depression scr eening assessment Cande Rand BIKE TECHNICIAN-OFFICE MESSENGER Work Phone: Plan of Treatment Date Care Activity Detail Author Start: 06-27-2025 Adult BMI Screening Adult BMI Screen ing [facility] Start: 06-27-2025 Depression Screening Depression Scre ening [facility] Start: 05-31-2025 Adult BMI Screening Adult BMI Screen ing [facility] Start: 05-31-2025 Depression Screening Depression Scre ening [facility] Start: 05-31-2025 Tobacco Screening Tobacco Screening [facility] Start: 04-19-2025 Adult BMI Screening Adult BMI Screen ing [facility] Start: 04-19-2025 Depression Screening Depression Scre ening [facility] Start: 04-19-2025 Tobacco Screening Tobacco Screening [facility] Start: 03-16-2025 Adult BMI Screening Adult BMI Screen ing [facility] Start: 03-16-2025 Depression Screening Depression Scre ening [facility] Start: 03-16-2025 Tobacco Screening Tobacco Screening [facility] Start: 03-08-2025 Adult BMI Screening Adult BMI Screen ing [facility] Start: 03-08-2025 Tobacco Screening Tobacco Screening [facility] Start: 02-07-2025 Adult BMI Screening Adult BMI Screen ing [facility] Start: 02-07-2025 Depression Screening Depression Scre ening [facility] Start: 02-07-2025 Tobacco Screening Tobacco Screening [facility] Start: 01-26-2025 Adult BMI Screening Adult BMI Screen ing [facility] Start: 01-26-2025 Depression Screening Depression Scre ening [facility] Start: 01-26-2025 Tobacco Screening Tobacco Screening [facility] Start: 01-06-2025 Adult BMI Screening Adult BMI Screen ing [facility] Start: 01-06-2025 Depression Screening Depression Scre ening [facility] Start: 01-06-2025 Tobacco Screening Tobacco Screening [facility] Start: 11-21-2024 [facility] Start: 08-08-2024 End: 08-08-2024 Patient encounter procedure 08/08/2024 2:30 PM EST [facility] [address] [place] [address] Geovanni Rivers, DO [address] [place] [address] [facility] Start: 06-27-2024 End: 06-27-2024 Patient encounter procedure 06/27/2024 4:00 PM EST [facility] [address] [place] [address] Geovanni Rivers, DO [address] [place] [address] [facility] Start: 05-31-2024 End: 05-31-2024 Patient encounter procedure 05/31/2024 1:40 PM EDT Office Visit [facility] [address] [place] [address] Leonel Avalos, BIKE TECHNICIAN-REVIEW MANAGER [address] [place] [address] [facility] Start: 04-19-2024 End: 04-19-2024 Patient encounter procedure 04/19/2024 2:45 PM EDT Office Visit [facility] [address] [place] [address] Geovanni Rivers, DO [address] [place] [address] [facility] - Family [facility] Start: 03-16-2024 End: 03-16-2024 Patient encounter procedure 03/16/2024 11:15 AM EDT Office Visit [facility] - Family [facility] [address] [place] [address] Geovanni Rivers, DO [address] [place] [address] [facility] - [facility] Start: 03-08-2024 End: 03-08-2024 Admission to same day surgery center 03/08/2024 10:00 AM EDT - 03/08/2024 11:00 AM EDT Surgery [facility] [address] [facility] [place] [address] Geovanni Rivers, DO [address] [place] [address] COLONOSCOPY DIAGNOSTIC / SCREENING [43923 (CPT )] [facility] Comment on above: COLONOSCOPY DIAGNOST IC / SCREENING [08270 (CPT )] Start: 03-08-2024 Subsequent hospital visit by physician 03/08/2024 10:00 AM EDT Hospital Encounter [facility] [address] [place] [facility] [place] [place] [address] Geovanni Rivers, DO [address] [place] [address] [facility] Start: 03-08-2024 End: 03-08-2024 Colonoscopy flx dx w/collj spec when pfrmd [facility] Start: 03-07-2024 End: 03-07-2024 ambulatory 03/07/2024 3:40 PM EDT Support Visit [facility] Pre [facility] [address] [place] [id number] [facility] Start: 01-27-2024 End: 01-27-2024 Patient encounter procedure 01/27/2024 2:40 PM EDT [facility] [facility] [address] [place] [id number] Cande Rand, BIKE TECHNICIAN-OFFICE MESSENGER [address] [place] [address] [facility] Start: 1998 Screening for malign ant neoplasm of cervix Pap Smear [facility] Start: 1996 DTaP,Tdap and Td Vaccines (1 - Tdap) DTaP,Tdap and Td Vaccines (1 - Tdap) [facility] Start: 1995 Adult BMI Follow Up Plan Adult BMI Follow Up Plan [facility] End: 03-16-2025 C-reactive protein C-reactive protein Lab Routine IBD (inflammatory bowel disease) 1 Occurrences starting 03/16/2024 until 03/16/2025 [employer] Work Phone: Comment on above: 1 Occurrences starti ng 03/16/2024 until 03/16/2025 End: 01-06-2025 Colonoscopy Colonoscopy GI Routine Screen for colon cancer 1 Occurrences starting 01/07/2024 until 01/06/2025 [employer] Work Phone: Comment on above: 1 Occurrences starti ng 01/07/2024 until 01/06/2025 End: 02-07-2025 Colonoscopy Colonoscopy GI Routine Colitis 1 Occurrences starting 02/08/2024 until 02/07/2025 [employer] Work Phone: Comment on above: 1 Occurrences starti ng 02/08/2024 until 02/07/2025 Colonoscopy flx dx w/collj spec when pfrmd COLONOSCOPY DIAGNOSTIC / SCREENING Colitis [facility] End: 03-16-2025 Cytoplasmic Neutrophilic Ab, S Cytoplasmic Neutrophilic Ab, S Lab Routine IBD (inflammatory bowel disease) 1 Occurrences starting 03/16/2024 until 03/16/2025 [employer] Comment on above: 1 Occurrences starti ng 03/16/2024 until 03/16/2025 Patient Education Hemorrhoids ED Colitis - Discharge instructions Know your Meds [facility] Work Phone: [facility] Payers Date Payer Category Payer Self-pay 2023 Medicaid [employer] [facility] O [id number] 2023-Present [phone] [address] [place] [address] [id number] 2023 Medicaid HMO [employer] [id number] 2023 Medicaid [id number] 1977 Unknown [id number] 1977 Unknown [id number] 1977 Unknown [id number] [id number]85 1977 Unknown [id number] 2.16.840.1.159156.3.579.2.1285 1977 Unknown [id number] 2.16.840.1.508163.3.579.2.1285 1977 Unknown [id number] 2.16.840.1.504851.3.579.2.1285 1977 Unknown [id number] 2.16.840.1.220699.3.579.2.1285 1977 Unknown [id number] 2.16840.1.461559.3.579.2.1285 1977 Unknown [id number] 2.16840.1.959887.3.579.2.1285 1977 Unknown [id number] 2.840.1.904899.3.579.2.1285 1977 Unknown [id number] 2.16.840.1.188552.3.579.2.1285 1977 Unknown [id number] 2.16840.1.330815.3.579.2.1285 1977 Unknown [id number] 2.16840.1.719246.3.579.2.1285 1977 Unknown [id number] 2.16840.1.221234.3.579.2.128 1959 Unknown [id number] Unknown [id number] [id number] Social History Date Type Detail Facility Start: 01-07-2024 End: 11-21-2024 Tobacco smoking status RIIS Ex-smoker [facility] History of tobacco use Current smoker [facility] History of tobacco use Cigarette Smoker P [facility] Start: 01-07-2024 End: 06-27-2024 Cigarettes smoked current (pack per day) - Reported 0.5 [facility] Start: 01-07-2024 Tobacco use and exposure Smokeless tobacco non-user [facility] Start: 01-27-2024 End: 06-27-2024 Alcoholic beverage intake Ex-drinker (finding) [facility] Start: 01-27-2024 End: 06-27-2024 Tobacco use panel [facility] Adolescent depressio n screening assessment 0 [facility] Start: 06-28-2023 Alcohol Comment Rarely [facility] [employer] [facility] Start: 1975 Sex assigned at Not on file [facility] Start: 05-13-2022 End: 11-21-2024 Sex Female (finding) [facility] Tobacco smoking stat us RIIS Unknown if ever smoked [facility] Work Phone: Start: 1975 Sex Assigned At Female [facility] Goals Date Patient Goal Desired Activity /State Clinical Notes 11-10-2023 to 11-21-2024 Note Date & Type Note Facility 11-21-2024 Procedure note [facility] 11-09-2024 Evaluation note Authored November 09, 2024 11:57am 49-year-old female referred to the GI clinic for evaluation of ulcerative colitis. Patient had a colonoscopy a year ago which showed left-sided colitis consistent with UC. Patient is currently on mesalamine 400 mg twice daily. Will arrange for colonoscopy. Will check CBC CRP and fecal calprotectin Will increase mesalamine to 1.[address] [facility] Work Phone: [phone] 364-927711-05-2024 History of Present illness Narrative* Geovanni Rivers, [...] Testing No results found. Geovanni Rivers DO., [facility] Office: [phone] documented in this encounterMer[facility] Hospital10-17-2024 Miscellaneous Notes* Telephone Encounter - Julia [...] note. Pt verbalizes understanding. documented in this encounterMercy Hospital10-17-2024 Telephone encounter Note* Telephone Encounter - Julia Boss CMA - 06/08/2024 1:13 PM EDT Pt called and states that since she has been taking the pepcid her indigestion is worse especially at night. She has been taking it for about a week. Please advise. [facility]10-17-2024 Telephone encounter Note* Telephone Encounter - [...] her bed on a brick or 2x4 [facility]10-17-2024 Telephone encounter Note* Telephone Encounter - Julia Boss CMA - 06/08/2024 1:13 PM EDT Called pt. Read note. Pt verbalizes understanding. [facility]10-09-2024 History of Present illness Narrative* Geovanni [...] -will monitor serially Subjective FOLLOW-UP: EMERGENCY DEPARTMENT ([place]) and hospital visit ([facility]) Patient was discharged from the facility on: 05/31/2024 from the ED, and 05/25/2024 for hospital visit at [facility] Diagnosis was: 1. Was admitted to [facility] for nausea vomiting and colitis. CT showed [...] so presented to the emergency department at [place]. Work-up and testing included: Surgery or biopsies? [...] She has been referred to Gastroenterology at [facility], but her appointment is not until September [...] Exam Vitals reviewed. Exam conducted with a front line leader present (Mother). Constitutional: General: She is not [...] the abdomen or pelvis. Geovanni Rivers DO., [facility] Office: [phone] documented in this encounterProMedica Health [id number] Miscellaneous Notes* Telephone Encounter - Mandy Polo RN - 05/27/2024 8:17 AM EDT ----- Message from Eun sent at 05/27/2024 8:13 AM EDT ----- Contract: 198 - Was just discharged yesterday from ER and the 2 antibiotic pills she has questions about. * Telephone Encounter - Mandy Polo RN - 05/27/2024 8:17 AM EDT Contract: 198 Was hospitalized ([facility]) x 5 days for a Colitis flair [...] her on Augmentin Will speak to provider special education teacher to discuss Reason for Disposition [1] Follow-up call from patient regarding patient's clinical status AND [2] information urgent Protocols used: PCP Call - No Triage-A- * Telephone Encounter - Mandy Polo RN - 05/27/2024 8:[address] Rivers on his cell phone- warm transferred him to [facility] documented in this encounterMercy Hospital10-05-2024 Telephone encounter Note* Telephone Encounter - Mandy Polo RN - 05/27/2024 8:17 AM EDT ----- Message from Eun sent at 05/27/2024 8:13 AM EDT ----- Contract: 198 - Was just discharged yesterday from ER and the 2 antibiotic pills she has questions about. [facility]10-05-2024 Telephone encounter Note* Telephone Encounter - Mandy Polo RN - 05/27/2024 8:17 AM EDT Contract: 198 Was hospitalized ([facility]) x 5 days for a Colitis flair [...] her on Augmentin Will speak to provider special education teacher to discuss Reason for Disposition [1] Follow-up call from patient regarding patient's clinical status AND [2] information urgent Protocols used: PCP Call - No Triage-A- [facility]10-[facility]24 Telephone encounter Note* Telephone Encounter - Mandy Polo RN - 05/27/2024 8:[address] Rivers on his cell phone- warm transferred him to [facility] Miscellaneous Notes* Telephone Encounter - Herminio Leos CMA - 05/02/2024 10:24 AM EDT Message noted. I have no other medications that I can offer. I suggest that we have her see a sash finisher at this time. Clos[facility] are in [place]. I can make arrangements if she is willing Note documented in [facility] Sport [id number] Telephone encounter Note* Telephone Encounter - Herminio Leos CMA - 05/02/2024 10:24 AM EDT Message noted. I have no other medications that I can offer. I suggest that we have her see a sash finisher at this time. Clos[facility] are in [place]. I can make arrangements if she is willing Note [facility] 123 [id number] Miscellaneous Notes* Telephone Encounter - Herminio Leos [...] suggest that we have her see a sash finisher at this time. Clos[facility] are in [place]. I can make arrangements if she is willing * Telephone Encounter - Delmis Red CMA - 05/01/2024 2:25 PM EDT Patient agrees to see specialist * Telephone Encounter - Geovanni Rivers DO - 05/01/2024 2:25 PM EDT Message noted. A referral to Shakira Arias at [facility], was sent today The patient can schedule her appointment at any time. documented in this encounterMercy Hospital09-09-2024 Telephone encounter Note* Telephone Encounter - Herminio Leos CMA - 05/01/2024 2:25 PM EDT Pt called and would like to let you know that she had side effects of new medication. It caused herto have nausea and cramping since last week she stopped after 3 days and is feeling better. Do you want to try something else? Pharmacy is listed and correct. [facility]09-09-[facility] Telephone encounter Note* Telephone Encounter - Geovanni Rivers DO - 05/01/2024 2:25 PM EDT Message noted. I have no other medications that I can offer. I suggest that we have her see a sash finisher at this time. Closest are in [place]. I can make arrangements if she is willing [facility]09-09-[facility] Telephone encounter Note* Telephone Encounter - Delmis Red CMA - 05/01/2024 2:25 PM EDT Patient agrees to see specialist [facility]09-09-2024 Telephone encounter Note* Telephone Encounter - Geovanni Rivers DO - 05/01/2024 2:25 PM EDT Message noted. A referral to Shakira Arias, at [facility], was sent today The patient can schedule her appointment at any time. [facility]08-28-[facility] History of Present illness Narrative* Geovanni Rivers DO - 04/19/2024 2:30 PM EDT IM PROGRESS NOTE Patient - Kelli Lake Age - 49 y[facility] 1975 [id number] ASSESS[facility] & PLAN 1. IBD (inflammatory bowel [...] Exam Vitals reviewed. Exam conducted with a front line leader present (Mother). Constitutional: General: She is not [...] esterase MEÑO 02/10/2024 Negative Negative^Negative Final Nitrite [facility] 02/10/2024 Negative Negative^Negative Final Ph 02/10/2024 6.0 5.0 - 8.5 Final Protein MEÑ[facility] 02/10/2024 30 (A) Negative^Negative mg/dL Final Urine glucose [facility] 02/10/2024 Negative Negative^Negative mg/dL Final Ketones [facility] 02/10/2024 80 (A) Negative^Negative mg/dL Final Urobilinogen ME[facility] 02/10/2024 0.2 <1.1 eu/dL Final Bilirubin [facility] 02/10/2024 Small (A) Negative^Negative Final Hemoglobin [facility] 02/10/2024 Negative Negative^Negative Final Nursing urine 02/10/2024 Negative Negative^Negative Final Other Testing No results found. Geovanni Rivers DO., [facility] Physicians Office: [phone] documented in this encounterMercy Hospital07-25-2024 History of Present illness Narrative* Geovanni Rivers DO - 03/16/2024 11:15 AM EDT IM PROGRESS NOTE Patient - Kelli Lake Age - 48 y.[facility]. [facility] 1975 [id number] ASSESSMENT & PLAN 1. IBD (inflammatory bowel [...] diagnosed with C difficile colitis at [facility] earlier this year, and had a very [...] Exam Vitals reviewed. Exam conducted with a front line leader present (Mother). Constitutional: General: She is not [...] 17 - 40 U/L Final Specific gravity [facility] 02/10/2024 1.025 1.003 - 1.035 Final Leukocyte esterase [facility] 02/10/2024 Negative Negative^Negative Final Nitrite [facility] 02/10/2024 Negative Negative^Negative Final Ph 02/10/2024 6.0 5.0 - 8.5 Final Protein [facility] 02/10/2024 30 (A) Negative^Negative mg/dL Final Urine glucose [facility] 02/10/2024 Negative Negative^Negative mg/dL Final Ketones [facility] 02/10/2024 80 (A) Negative^Negative mg/dL Final Urobilinogen [facility] 02/10/2024 0.2 <1.1 eu/dL Final Bilirubin [facility] 02/10/2024 Small (A) Negative^Negative Final Hemoglobin [facility] 02/10/2024 Negative Negative^Negative Final Nursing urine 02/10/2024 [...] and endoscopic correlation recommended. Geovanni Rivers DO., [facility] Physicians Office: [phone] documented in this encounterMercy Hospital07-16-2024 Nurse Note* Perioperative Nursing Note - Daily Balderas RN - 03/07/2024 12:08 PM EDT Preoperative Education Checklist- General Surgery date: 03/08/24 Surgery time: 10a Arrival time: 9a 1. Bring a photo ID and your insurance card with you the day of surgery. You will check in at the main lobby of the [facility]- registration desk is straight ahead as soon as you walk in. Tell them you are here for surgery. 2. If you have a Living Will/Durable Power of Buildings And Grounds Supervisor for Health Care that is not on [...] after you have bathed. 5. NO nail cayman islander/acrylic on at least one finger. If you are having a hand, wrist or foot surgery then all nail cayman islander and artificial/acrylic nails must be removed from [...] please call the Preadmission Testing office at [phone], Mon.-Fri. 7 a.m.-3 p.m. Leave a voicemail if needed. Pre-Surgery Instructions: Medication Instructions escitalopram (LEXAPRO) 5 mg tablet Stop taking 0 days prior to procedure dicyclomine (BENTYL) 20 mg tablet Stop taking 0 days prior to procedure hyoscyamine (LEVSIN) 0.125 mg SL tablet Stop taking 0 days prior to procedure peg 3350-sod sulf,vlkr-yum-asj 178.7-7.3-0.5 gram recon soln Check with prescribing doctor for instructions polyethylene glycol (GOLYTELY) 236-22.74-6.74 -5.86 gram solution Check with prescribing doctor forinstructions PROMETHEGAN 12.5 mg suppository Stop taking 0 days prior to procedure [facility] 123 [id number] Miscellaneous Notes* Perioperative Nursing Note - Daily Balderas RN - 03/07/2024 12:08 PM EDT Preoperative Education Checklist- General Surgery date: 03/08/24 Surgery time: 10a Arrival time: 9a 1. Bring a photo ID and your insurance card with you the day of surgery. You will check in at the main lobby of the [facility]- registration desk is straight ahead as soon as you walk in. Tell them you are here for surgery. 2. If you have a Living Will/Durable Power of Buildings And Grounds Supervisor for Health Care that is not on [...] after you have bathed. 5. NO nail cayman islander/acrylic on at least one finger. If you are having a hand, wrist or foot surgery then all nail cayman islander and artificial/acrylic nails must be removed from [...] please call the Preadmission Testing office at [phone], Mon.-Fri. 7 a.m.-3 p.m. Leave a voicemail if needed. Pre-Surgery Instructions: Medication Instructions escitalopram (LEXAPRO) 5 mg tablet Stop taking 0 days prior to procedure dicyclomine (BENTYL) 20 mg tablet Stop taking 0 days prior to procedure hyoscyamine (LEVSIN) 0.125 mg SL tablet Stop taking 0 days prior to procedure peg 3350-sod sulf,wvkk-ueg-ffn 178.7-7.3-0.5 gram recon soln Check with prescribing doctor for instructions polyethylene glycol (GOLYTELY) 236-22.74-6.74 -5.86 gram solution Check with prescribing doctor forinstructions PROMETHEGAN 12.5 mg suppository Stop taking 0 days prior to procedure documented in this encounterMercy Hospital06-18-2024 History of Present illness Narrative* Geovanni [...] weeks ago when she was seen in [facility] ED, diagnosed with colitis, and placed on antibiotics. Her symptoms never really went away, and she returned to the emergency department for evaluation. -at that time she was diagnosed with C difficile colitis, was placed on Flagyl and steroids and discharged home. She felt terrible with nausea vomiting and generalized weakness. -she returned to [facility] ED, was admitted to the hospital for [...] Exam Vitals reviewed. Exam conducted with a front line leader present (Mother). Constitutional: General: She is not [...] Testing No results found. Geovanni Rivers DO., [facility] Physicians Office: [phone] documented in this encounterMercy Hospital06-06-2024 History of Present illness Narrative* Cande Rand APRN-OFFICE MESSENGER - 01/27/2024 2:40 PM EDT Subjective Patient ID: Kelli Lake is a 48 y.o. female. She was in the hospital for intractable vomiting The body team member initially thought she had pancreatitis but eventially [...] MIRELLA Oconnell 01/27/24 1637 documented in this encounterMercy Hospital06-03-2024 Miscellaneous Notes* Telephone Encounter - Felisha Obrien CMA - 01/24/2024 12:03 PM EDT Pt called requesting a refill she knows they are from the hospital but wanted to know if you could refill them she has 1 left just in case and plans to talk to you about them at her visit at the end of the week documented in this encounterMercy Hospital06-03-2024 Telephone encounter Note* Telephone Encounter - Felisha Obrien CMA - 01/24/2024 12:03 PM EDT Pt called requesting a refill she knows they are from the hospital but wanted to know if you could refill them she has 1 left just in case and plans to talk to you about them at her visit at the end of the week [facility]-17[facility] History of Present illness Narrative* MIRELLA [...] MIRELLA Oconnell 01/07/24 1126 documented in this encounterMercy Hospital03-20-2024 Evaluation note* Author [facility] Authored November 09, 2024 11: 57am 49-year-old female referred to the GI clinic for evaluation of ulcerative colitis. Patient had a colonoscopy a year ago which showed left-sided colitis consistent with UC. Patient is currently on mesalamine 400 mg twice daily. Will arrange for colonoscopy. Will check CBC CRP and fecal calprotectin Will increase mesalamine to 1.2 g twice daily [facility] Work Phone: Evaluation note* Diagnosis Colitis due to Clostridioides difficile- Primary [facility] Diagnosis Colitis- Primary Other and unspecified noninfectious gastroenteritis and colitis Hypokalemia Hypopotassemia Reactive depression Screen for colon cancer Special screening for malignant neoplasms, colon documented [facility] this encounter [facility]* Diagnosis Colitis- Primary Other and unspecified noninfectious gastroenteritis and colitis Hypotension, unspecified hypotension type documented in this encounter [facility]* Diagnosis IBD (inflammatory bowel disease)- Primary Other and unspecified noninfectious gastroenteritis and colitis Colitis due to Clostridioides difficile [facility]* Diagnosis IBD (inflammatory bowel disease)- Primary Other and unspecified noninfectious gastroenteritis and colitis [facility]* Diagnosis 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[facility])- Primary IBD (inflammatory bowel disease) Other and unspecified noninfectious gastroenteritis and colitis Heartburn Nausea and vomiting, unspecified vomiting type Hyponatremia with extracellular fluid depletion Hyposmolality and/or hyponatremia documented in this encounter [facility]* Diagnosis IBD (inflammatory bowel disease) Other and unspecified noninfectious gastroenteritis and colitis Heartburn documented in this encounter [facility] Discharge instructions Additional Instructions DISCHARGE INSTRUCTIONS [...] NOT operate machinery such as power tools, [employer] mowers, View[employer]wers, sewing machines, etc. for 24 hours. - [...] have any problems. -Follow-up pathology -Office number [phone]. [facility] Work Phone: InstructionsNot on filedocumented in this encounter [facility] SystemInstructionsNot on filedocumented in this encounter [facility] SystemInstructionsNot on filedocumented in this encounter [facility] SystemInstructionsNot on filedocumented in this encounter [facility] SystemInstructionsNot on filedocumented in this encounter [facility] SystemInstructionsNot on filedocumented in this encounter [facility] SystemInstructionsNot on filedocumented in this encounter [facility] SystemInstructionsNot on filedocumented in this encounter [facility] SystemInstructionsNot on filedocumented in this encounter [facility] Summary Purpose Family History No Family History Records Found Relationship Condition Age at Onset Recorded Date/T prabhakar father Unknown mother Diabetes mellitus Unknown Heart disease Unknown History of stroke Unknown Advance Directives No Advanced Directives Records Found Advance Directive Response Recorded Date/ Time Advance Directives No November 01 2:50pm Reason for Referral Specialty Diagnoses / Procedures Referred By Contharshad t Referred To Contact Diagnoses Screen for colon cancer Procedures Colonoscopy Colonoscopy Cande Rand, BIKE TECHNICIAN-OFFICE MESSENGER [address] [place] [address] Referral ID Status Reason Start Date Expiration Date V isits Requested Visits Authorized [id number] Pending Review 01/07/2024 01/06/2025 1 1 Chief Complaint and Reason for Visit Chief Complaint Admit Date Refer: ulcerative rectosigmoiditis November 09, 2024 11:05am Chief Complaint Admit Date Refer: ulcerative rectosigmoiditis November 09, 2024 11:05am November 21, 2024 8:08 am November 21, 2024 9:59 am Additional Source Comments INFORMATION SOURCE (unrecogn ized section and content) DATE CREATED AUTHOR 08/29/2019 [facility] DATE CREATED AUTHOR AUTHOR'S ORGANIZ ATION 01/10/2024 [facility] DATE CREATED AUTHOR AUTHOR'S ORGANIZ ATION 06/02/2024 [facility] DATE CREATED AUTHOR AUTHOR'S ORGANIZ ATION 08/11/2024 [facility] DATE CREATED AUTHOR AUTHOR'S ORGANIZ ATION 11/26/2024 [facility] Reason for Visit (unrecogniz ed [...] Care Teams (unrecognized sec tion and content) Senior Consultant Relationship Specialty Start Date End Date Geovanni Rivers DO [address] [place] [address] PCP - General Internal Medicine 01/27/24 Senior Consultant Relationship Specialty Start Date End Date Cande Rand, BIKE TECHNICIAN-[facility] [address] [place] [address] PCP - General Internal Medicine 06/28/23 Senior Consultant Relationship Specialty Start Date End Date Cande Rand, [facility] [address] [place] [address] PCP - General Internal Medicine 06/28/23 Senior Consultant Relationship Specialty Start Date End Date Cande Rand, [facility] [address] [place] [address] PCP - General Internal Medicine 06/28/23 Senior Consultant Relationship Specialty Start Date End Date Geovanni Rivers DO [address] [place] [address] PCP - General Internal Medicine 01/27/24 Senior Consultant Relationship Specialty Start Date End Date Geovanni Rivers DO [address] [place] [address] PCP - General Internal Medicine 01/27/24 Senior Consultant Relationship Specialty Start Date End Date Geovanni Rivers DO [address] [facility] [address] PCP - General Internal Medicine 01/27/24 Senior Consultant Relationship Specialty Start Date End Date Geovanni Rivers DO [address] [place] [address] PCP - General Internal Medicine 01/27/24 Senior Consultant Relationship Specialty Start Date End Date Geovanni Rivers DO [address] [place] [address] PCP - General Internal Medicine 01/27/24 Senior Consultant Relationship Specialty Start Date End Date Geovanni Rivers DO [address] [place] [address] PCP - General Internal Medicine 01/27/24 Senior Consultant Relationship Specialty Start Date End Date Geovanni Rivers DO [address] [place] [address] PCP - General Internal Medicine 01/27/24 Team [...] BE BASED ON THE PRIMARY CLINICAL RECORDS. [facility]. provides no warranty or guarantee of the accuracy or completeness of information in this document.
[2024-11-27 07:31] VITALS: BP 148/86; PULSE 79; TEMP 37.1; O2SAT 96
--- NOTE | 2024-11-27 07:58 | PM.PN ---
Progress Note: Subjective Subjective Interval history: Patient has held down some apple sauce this morning. No vomiting last night and nausea is greatly improved. She denies any current abdominal pain. No bowel movements or diarrhea. No other issues at this time. We discussed her difficulty with swallowing pills and that Dr. Hernandez, her GI doctor may want to consider EGD in the future. In the meantime, I can place her on liquid steroid. She would like to try this versus prednisone pills. Passing gas. Minimal pain. Exam Narrative Exam Narrative: General: Patient is alert, and oriented to person, place and time with normal affect, proper hygiene Skin: no visible rashes, or ulcers Head: atraumatic, acephalic Eyes: PERRLA, no nystagmus present, conjunctiva clear, no scleral icterus Ears: normal gross auditory acuity Heart: Normal rate and rhythm, no murmurs/rubs/gallops Lungs: no audible wheezes, crackles and normal breath sounds all lung quan Abdomen: hypoactive bowel sounds, no distension, guarding in the lower abdomen Musculoskeletal:no swelling bilateral lower extremities Neuro: CN II-X grossly intact Constitutional Vital Signs, click to edit/add: Last Vital Signs Temp 98.8 F 11/27/24 07:31 Pulse 79 11/27/24 07:31 Resp 20 11/27/24 07:31 BP 148/86 H 11/27/24 07:31 Pulse Ox 96 11/27/24 07:31 O2 Del Method Room Air 11/27/24 07:31 Progress Note: Objective Labs Labs: Short CBC 11/27/24 Range/Units 05:21 WBC 14.9 H (4.0-11.0) 10^3/uL Hgb 12.0 (12.0-16.0) g/dL Hct 36.1 (36.0-48.0) % Plt Count 315 (150-450) 10^3/uL BMP 11/27/24 05:21 Sodium 129 L Potassium 4.1 Chloride 93 L Carbon Dioxide 26.1 BUN 12.0 Creatinine 0.77 Glucose 126 H Calcium 8.7 Liver Function 11/27/24 Range/Units 05:21 Total Bilirubin 0.7 (0.2-1.0) mg/dL AST 17 (15-37) U/L ALT 14 (14-59) U/L Alkaline Phosphatase 69 (46-116) U/L Albumin 3.7 (3.4-5.0) g/dL Progress Note: A&P Assessment and Plan (1) Acute ulcerative colitis without complications: Assessment and Plan: continue IV solumedrol, WBC's elevated due to steroid use. Monitor daily, IV Tylenol for pain, advance to full liquid diet. Normal liver enzymes. (2) Nausea & vomiting: Assessment and Plan: continue with zofran, Phenergan Qualifiers: Vomiting type: unspecified Qualified Code(s): R11.2 - Nausea with vomiting, unspecified (3) Acute pancreatitis: Assessment and Plan: continue pain control, antiemetics. Lipase is normal range Qualifiers: Acute pancreatitis complication: unspecified Pancreatitis type: drug induced Qualified Code(s): K85.30 - Drug induced acute pancreatitis without necrosis or infection Plan Patient is a full code check acute abdominal series today.
[2024-11-27 08:05] LABS: Magnesium 2.1 mg/dL (1.8-2.4)
[2024-11-27] MEDS: PANTOPRAZOLE SODIUM 40 MG VIAL IV (08:13)
--- NOTE | 2024-11-27 10:00 | CM.NOTE ---
Rounds made with Dr. Frederick, pt continues with c/o abdominal pain. Pt denies nausea at this time, will increase diet to [place]. Dr. Frederick will reevaluate pt late afternoon for discharge planning.
[2024-11-27 15:12] VITALS: BP 143/94; PULSE 89; TEMP 37.2; O2SAT 96
[2024-11-27 19:56] VITALS: BP 139/90; PULSE 72; TEMP 37.5; O2SAT 96
[2024-11-27] MEDS: ACETAMINOPHEN 1,000 MG/100 ML PREMIX 400 MG IV (20:01)
[2024-11-27 23:30] VITALS: BP 130/89; PULSE 100; TEMP 36.7; O2SAT 95
[2024-11-28] MEDS: ONDANSETRON PF 4 MG/2 ML VIAL IV (00:16)
[2024-11-28 03:24] VITALS: BP 131/92; PULSE 82; TEMP 36.9; O2SAT 96
[2024-11-28] MEDS: METHYLPREDNISOLONE SOD SUCC PF 125 MG/2 ML VIAL 60 MG IVP ×2 (05:22→11:07)
[2024-11-28] MEDS: OXYCODONE HCL/ACETAMINOPHEN 5MG/325MG 1 TAB PO (05:52)
[2024-11-28 06:22] LABS: Basophils Percent Auto 0.1 % (0.2-2.0); Eosinophils Absolute Auto 0.1 10^3/uL (0.0-0.7); Eosinophils Percent Auto 0.3 % (0.9-7.0); Hematocrit 42.8 % (36.0-48.0); Hemoglobin 14.1 g/dL (12.0-16.0); Immature Granulocytes Abs Auto 0.04 10^3/uL (0.00-0.03); Immature Granulocytes Pct Auto 0.3 % (0.0-0.5); Lymphocytes Absolute Auto 0.8 10^3/uL (1.2-3.8); Lymphocytes Percent Auto 5.6 % (20.5-60.0); Mean Corpuscular HGB Conc 32.9 g/dL (29.9-35.2); Mean Corpuscular Hemoglobin 25.6 pg (26.7-34.0); Mean Corpuscular Volume 77.8 fL (81.0-99.0); Mean Platelet Volume 10.1 fL (9.5-13.5); Monocytes Absolute Auto 0.9 10^3/uL (0.3-0.8); Monocytes Percent Auto 6.3 % (1.7-12.0); Neutrophils Absolute Auto 12.6 10^3/uL (1.4-6.5); Neutrophils Percent Auto 87.4 % (43.0-75.0); Platelet Count 452 10^3/uL (150-450); Red Cell Distribution Width 14.6 % (11.0-15.0); White Blood Count 14.4 10^3/uL (4.0-11.0)
[2024-11-28 06:41] LABS: Alanine Aminotransferase 12 U/L (14-59); Albumin Globulin Ratio 0.9; Albumin Level 3.8 g/dL (3.4-5.0); Alkaline Phosphatase 70 U/L (46-116); Anion Gap 12.9; Aspartate Amino Transferase 19 U/L (15-37); BUN Creatinine Ratio 20.4; Bilirubin Total 0.8 mg/dL (0.2-1.0); Carbon Dioxide 26.3 mmol/L (21.0-32.0); Chloride 92 mmol/L (98-107); Estimated GFR (African America >60 (>=60 mL/min/1.73m^2); Estimated GFR (Non-African Ame >60 (>=60 mL/min/1.73m^2); Globulin 4.3 g/dL; Glucose 149 mg/dL (74-106); Potassium 4.2 mmol/L (3.5-5.1); Sodium 127 mmol/L (136-145); Total Protein 8.1 g/dL (6.4-8.2)
[2024-11-28 07:47] VITALS: BP 137/90; PULSE 80; TEMP 36.7; O2SAT 97
[2024-11-28] MEDS: PANTOPRAZOLE SODIUM 40 MG VIAL IV (08:34)
--- NOTE | 2024-11-28 09:02 | PM.DS1 ---
DS: Providers Provider Date of admission: 11/24/24 18:00 Primary care physician: GEOVANNI NJ Attending physician on admission: Marco Boyer Discharging clinician: Joyce Frederick DS: Diagnosis Discharge Diagnosis (1) Acute ulcerative colitis without complications: (2) Nausea & vomiting: Qualifiers: Vomiting type: unspecified Qualified Code(s): R11.2 - Nausea with vomiting, unspecified (3) Acute pancreatitis: Qualifiers: Acute pancreatitis complication: unspecified Pancreatitis type: drug induced Qualified Code(s): K85.30 - Drug induced acute pancreatitis without necrosis or infection DS: Summary Hospital Course Hospital Course: 49 y.o white female with history of scoliosis, and ulcerative colitis, taking mesalamine daily. She was recently seen at [facility] by her GI doctor, Dr. Hernandez, on wednesday for colonoscopy. She was to start Prednisone 80mg daily with taper but could not tolerate it. This was prescribed on . She presented to the ER with nausea/vomiting and abdominal pain WBC's 14.5, CT of the abdomen showed acute proctocolitis in the rectum, sigmoid, and descending colon. patient treated with IV solu-medrol, [place] for pain, IVF and NPO diet that was advanced slowly. Patient required Zofran and Phenergan for antiemetic control. Patient has tolerated soft foods. X-ray abdomen on 11/27/24 was checked and showed some gas in the stomach but was negative for SBO or free air in the intestines. She has been afebrile. Lipase was 501, down to normal range. Liver function normal range. She has difficulty swallowing pills so discussed doing Prednisolone taper since it is liquid. She will be on 20mg TID x 5 days, 20mg BID x 5 days, 20mg daily x 5 days then stop. I have sent in ODT Zofran and Phenergan suppository. She required some IV magnesium replacement but mag level is stable at the time of discharge. She has close follow up with her PCP and GI doctor. She should return to the ER with any worsening signs or symptoms. I would suggest she go to the same Facility as her GI doctor next visit as we do not have GI consultants here at [facility]. Status at Discharge Functional status at discharge: independent ambulation Overall status at discharge: patient is progressing back to baseline Time Spent with Patient Time attestation: Total time spent providing and/or coordinating discharge services: Time spent: greater than 30 minutes Exam Narrative Exam Narrative: General: Patient is alert, and oriented to person, place and time with normal affect, proper hygiene Skin: no visible rashes, or ulcers Head: atraumatic, acephalic Eyes: PERRLA, no nystagmus present, conjunctiva clear, no scleral icterus Ears: normal gross auditory acuity Heart: Normal rate and rhythm, no murmurs/rubs/gallops Lungs: no audible wheezes, crackles and normal breath sounds all lung quan Abdomen: audible bowel sounds, no distension, guarding in the lower abdomen Musculoskeletal:no swelling bilateral lower extremities Neuro: CN II-X grossly intact Constitutional Vital Signs, click to edit/add: Last Vital Signs Temp 98.1 F 11/28/24 07:47 Pulse 80 11/28/24 07:47 Resp 16 11/28/24 07:47 BP 137/90 11/28/24 07:47 Pulse Ox 97 11/28/24 07:47 O2 Del Method Room Air 11/28/24 07:47 DS: Data Data Completed and Pending Labs on day of discharge: Labs from last 24 hours 11/28/24 05:43 WBC 14.4 H RBC 5.50 H Hgb 14.1 Hct 42.8 MCV 77.8 L MCH 25.6 L MCHC 32.9 RDW 14.6 Plt Count 452 H MPV 10.1 Neut % (Auto) 87.4 H Lymph % (Auto) 5.6 L [place] % (Auto) 6.3 Eos % (Auto) 0.3 L Baso % (Auto) 0.1 L Neut # (Auto) 12.6 H Lymph # (Auto) 0.8 L [place] # (Auto) 0.9 H Eos # (Auto) 0.1 Baso # (Auto) 0.0 Abs Immat Gran (auto) 0.04 H Imm/Tot Granulo (auto) 0.3 Sodium 127 L Potassium 4.2 Chloride 92 L Carbon Dioxide 26.3 Anion Gap 12.9 BUN 20.0 H Creatinine 0.98 Est GFR ( Amer) >60 Est GFR (Non-Af Amer) >60 BUN/Creatinine Ratio 20.4 Glucose 149 H Calcium 9.0 Total Bilirubin 0.8 AST 19 ALT 12 L Alkaline Phosphatase 70 Total Protein 8.1 Albumin 3.8 Globulin 4.3 Albumin/Globulin Ratio 0.9 Discharge Plan Discharge Disposition: Home, Self-Care Condition: Good Discharge Medications: New ondansetron 4 mg tablet,disintegrating 4 mg PO Q8H PRN (Reason: nausea and vomiting) 5 Days Qty: 15 0RF promethazine 12.5 mg suppository 12.5 mg AK Q6H PRN (Reason: nausea and vomiting) Qty: 12 0RF Rx Instructions: 3 doses during day; last dose no later than 4 hr before bedtime prednisolone sodium phosphate 20 mg/5 mL (4 mg/mL) solution 20 mg PO .as directed Qty: 237 0RF Rx Instructions: take 20mg PO TID x 5 days, then 20mg PO BID x 5 days, Then 20mg PO daily x 5 days, then stop Continued mesalamine 400 mg capsule (with del rel tablets) 400 mg PO BID Activity: increase activity as tolerated Diet: other Diet Detail: bland diet and advance as tolerated Print Language: Hebrew Patient Instructions: Prednisolone (By mouth) (Orapred, Pediapred, Millipred, Millipred DP), Ulcerative Colitis (DC) Forms: Portal Instructions Follow Up Appointments: November 30 @ 4:15pm with Dr. Nj [phone] January 22 @ 8:30am with Dr. Medina [phone]
[2024-11-28 11:03] VITALS: BP 108/74; PULSE 88; TEMP 36.7; O2SAT 95
--- NOTE | 2024-11-28 11:32 | CM.NOTE ---
Rounds made with Dr. Frederick. Dr. Frederick reviews labs and plan of care. Advance diet and hopeful discharge later today.
--- NOTE | 2024-11-30 16:21 | CM.DCFOLLOWU ---
2nd attempt 11/30, no answer
--- NOTE | 2024-12-04 13:35 | CM.DCFOLLOWU ---
12/04-3rd attempt. No answer
== END 2024-11-28 14:03 | disposition home or self-care (01) | DRG 245 ==
LOC: ER 17:21 → MS 19:36
PROVIDERS: Family Medicine; Physician Assistant; Admitting Provider Family Medicine; Emergency Provider Emergency Medicine; PCP Internal Medicine; Visit Provider Family Medicine
DX: K51.80 Other ulcerative colitis without complications (principal); M41.9 Scoliosis, unspecified; K85.30 Drug induced acute pancreatitis without necrosis or infection; Z88.8 Allergy status to other drugs, medicaments and biological substances; Z96.622 Presence of left artificial elbow joint; Z79.899 Other long term (current) drug therapy; Z87.891 Personal history of nicotine dependence
CPT/HCPCS: 36415; 74018; 74177; 80053; 83690; 83735; 85007; 85025; 85027; 96361; 96365; 96375; 96376; 99285; J0131; J0780; J2270; J2405; J2550; J2919; J3475; J3490; Q0169; Q9967

== ENCOUNTER 2024-11-29 16:52 | Outpatient (OUT) | payer OTHER, SELFPAY ==
[2024-12-01 05:07] LABS: HBsAg Screen Negative (Negative); Hep B Core Ab, Tot Negative (Negative); Hepatitis B Surf Ab Quant <3.5 mIU/mL (Immunity>10)
== END 2024-11-29 16:53 | disposition home or self-care (01) ==
LOC: LAB 16:53
PROVIDERS: PCP Internal Medicine; Visit Provider Internal Medicine
DX: K51.90 Ulcerative colitis, unspecified, without complications (principal)
CPT/HCPCS: 36415; 86317; 86480; 86704; 87340

== ENCOUNTER 2024-11-30 02:42 | Emergency (ER) | payer OTHER, SELFPAY ==
[2024-11-30 02:46] VITALS: BP 130/94; PULSE 85; TEMP 36.7; O2SAT 100; BMI 23.6
--- OUTSIDE RECORDS SUMMARY | 2024-11-30 02:47 | XMS_ITS | CCD ---
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[facility]) Insert 1 suppository (12.5 mg [...] 12/25/2023 01/27/2024 Discontinued (Therapy completed) peg 3350-sod sulf,bsgn-zsp-lrx 178.7-7.3-0.5 gram recon soln (1 source) Start: 02-27-2024 End: 03-08-2024 peg 3350-sod sulf,lvdx-shr-cti 178.7-7.3-0.5 gram recon soln Indications: Colitis due to Clostridioides difficile Take one container twice as directed by scheduled instructions 2 each 02/27/2024 03/08/2024 Discontinued penicillin v potassium 250 mg oral tablet (2 sources) Start: 10-18-2023 End: 11-09-2024 Penicillin V Potassium 250 mg tablet Discontinued 500 MG PO Every 6 hours 40 7 October 18, 2023 1:00am November 09, 2024 11:57am polyethylene glycol 3350 851570 mg / potassium chloride 2970 mg / sodium bicarbonate 6740 mg / sodium chloride 5860 mg / sodium sulfate 76343 mg powder for oral solution (1 source) [...] Reference Range Facility Hoang 11-21-2024 ---- Specimen: [id number] Received: 11/21/24 Status: LINO Juarez Num: [id number] Spec Type: Surgical Subm Dr: Belinda Medina MD Tissues: A Small Intestine - Biopsy/Polyp (SMALL BOWEL BX) B Colon Biopsy (RIGHT COLON BX) C Colon Biopsy (TRANSVERSE COLON BX) D Colon Biopsy (DESCENDING COLON BX) E Colon Biopsy (SIGMOID COLON BX) F Colon Biopsy (RECTAL BX) Procedures: /Bri, Gross/Micro L4/6 Age/ Patient Sex Location Account Attending Physician Kelli Lake 49/F [id number] Belinda Medina MD SPEC NUM: [id number] RECD: 11/21/24 STATUS: LINO JUAREZ NUM: [id number] CHANNING: 11/21/[address] [facility] [address]: Belinda Medina MD ENTERED: 11/21/24 [facility] DR: SARA TYPE: Surgical DEPT: S ENTERED BY: [id number] RECV BY: [id number] ORDERED: HE/15, Gross/Micro L4/6 ORDERED: HE/15, Gross/Micro [...] are identified E. Sigmoid colon biopsy: Specimen: [id number] Received: 11/21/24 Status: LINO Juarez Num: [id number] Spec Type: Surgical Subm Dr: Belinda Medina MD Tissues: A Small Intestine - Biopsy/Polyp (SMALL BOWEL BX) B Colon Biopsy (RIGHT COLON BX) C Colon Biopsy (TRANSVERSE COLON BX) D Colon Biopsy (DESCENDING COLON BX) E Colon Biopsy (SIGMOID COLON BX) F Colon Biopsy (RECTAL BX) Procedures: /, Gross/Micro /6 Patient: Kelli Lake [id number] (Continued) Specimen: [id number] Received: 11/21/24 (Continued) Pathological Diagnosis (Continued) Signed (signature on file) Rubin Strickland MD 11/22/24 1400 Specimen: [id number] Received: 11/21/24 Status: LINO Juarez Num: [id number] Spec Type: Surgical Subm Dr: Belinda Medina MD Tissues: A Small Intestine - Biopsy/Polyp (SMALL BOWEL BX) B Colon Biopsy (RIGHT COLON BX) C Colon Biopsy (TRANSVERSE COLON BX) D Colon Biopsy (DESCENDING COLON BX) E Colon Biopsy (SIGMOID COLON BX) F Colon Biopsy (RECTAL BX) Procedures: /, Gross/Micro L4/6 Patient: VenkateshgloriaKelli Jeannette [id number] (Continued) Specimen: [id number] Received: 11/21/24 (Continued) Pathological Diagnosis (Continued) ? [...] submitted in a single cassette. (1, ns, [id number]) JG Part B is received in formalin labeled with the patients name, date of , and right colon BX are 2 edmondson-forrester, focally erythematous, friable, 0.4 and 0.5 cm in greatest dimension tissue strips. (more content not included)... Normal [facility]ending [facility] CBC AND AUTO DIFFon 05-31-20 24 ABSOLUTE BASOPHIL 0.0 X10E9/L Normal 0.0-0.[address] [facility] Comment on above: Performed By: #### C ROMERO, CMP #### [facility] ([id number]) [address] [place] [address] 78531 ABSOLUTE NEUTROPHIL 8.6 X10E9/L High 1.5-6.6 [facility] Comment on above: Performed By: #### C ROMERO, CMP #### [facility] ([id number]) [address] [place] [address] 09348 Basophils/100 WBC (Bld) 0.2 % Normal [facility] Comment on above: Performed By: #### C ROMERO, CMP #### [facility] ([id number]) [address] [place] [address] 04903 Eosinophils (Bld) [#/Vol] 0.0 10*3/uL Normal 0.0-0.4 [facility] Comment on above: Performed By: #### C BCA, CMP #### [facility] ([id number]) [address] [place] [address] 76556 Eosinophils/100 WBC (Bld) 0.1 % Normal [facility] Comment on above: Performed By: #### C BCA, CMP #### [facility] ([id number]) [address] [place] [address] 83285 Erythrocyte distribution width (RBC) [Ratio] 15.5 % High 11.5-15.0 [facility] Comment on above: Performed By: #### C BCA, CMP #### [facility] ([id number]) [address] [place] [address] 69413 Hematocrit (Bld) [Volume fraction] 35.2 % Normal 35-47 [facility] Comment on above: Performed By: #### C BCA, CMP #### [facility] ([id number]) [address] [place] [address] 89556 Hemoglobin (Bld) [Mass/Vol] 11.3 g/dL Low 11.7-15.5 [facility] Comment on above: Performed By: #### C BCA, CMP #### [facility] ([id number]) [address] [place] [address] 43052 Lymphocytes (Bld) [#/Vol] 1.3 10*3/uL Normal 1.0-3.5 [facility] Comment on above: Performed By: #### C BCA, CMP #### [facility] ([id number]) [address] [place] [address] 29987 Lymphocytes/100 WBC (Bld) 11.4 % Normal [facility] Comment on above: Performed By: #### C BCA, CMP #### [facility] ([id number]) [address] [place] [address] 69478 MCH (RBC) [Entitic mass] 24.4 pg Low 27-34 [facility] Comment on above: Performed By: #### C BCA, CMP #### [facility] ([id number]) [address] [place] [address] 97278 MCHC (RBC) [Mass/Vol] 32.1 g/dL Normal 32-36 [facility] Comment on above: Performed By: #### C BCA, CMP #### [facility] ([id number]) [address] [place] [address] 12540 MCV (RBC) [Entitic vol] 76 fL Low 80-100 [facility] Comment on above: Performed By: #### C ROMERO, CMP #### [facility] ([id number]) [address] [place] [address] 27203 Monocytes (Bld) [#/Vol] 1.1 10*3/uL High 0-0.9 [facility] Comment on above: Performed By: #### C ROMERO, CMP #### [facility] ([id number]) [address] [place] [address] 22764 Monocytes/100 WBC (Bld) 10.2 % Normal [facility] Comment on above: Performed By: #### C ROMERO, CMP #### [facility] ([id number]) [address] [place] [address] 43105 Neutrophils/100 WBC (Bld) 78.1 % Normal [facility] Comment on above: Performed By: #### C ROMERO, CMP #### [facility] ([id number]) [address] [place] [address] 28298 Platelet mean volume (Bld) [Entitic vol] 7.7 fL Normal 7-12 [facility] Comment on above: Performed By: #### C ROMERO, CMP #### [facility] ([id number]) [address] [place] [address] 19311 Platelets (Bld) [#/Vol] 300 10*3/uL Normal 150-450 [facility] Comment on above: Performed By: #### C BCA, CMP #### [facility] ([id number]) [address] [place] [address] 91778 RBC COUNT 4.62 X10E12/L Normal 3.80-5.20 [facility] Comment on above: Performed By: #### C BCA, CMP #### [facility] ([id number]) [address] [place] [address] 81920 WBC (Bld) [#/Vol] 11.0 10*3/uL Normal 4.0-11.0 [facility] Comment on above: Performed By: #### C BCA, CMP #### [facility] ([id number]) [address] [place] [address] 63551 COMPREHENSIVE METABOLIC PANE Hoang 05-31-2024 Albumin [Mass/Vol] 3.9 g/dL Normal 3.2-5.[address] [facility] Comment on above: Performed By: #### C BCA, CMP #### [facility] ([id number]) [address] [place] [address] 63521 ALP [Catalytic activity/Vol] 44 U/L Normal 39-130 [facility] Comment on above: Performed By: #### C BCA, CMP #### [facility] ([id number]) [address] [place] [address] 49500 ALT [Catalytic activity/Vol] 13 U/L Normal 0-31 [facility] Comment on above: Performed By: #### C BCA, CMP #### [facility] ([id number]) [address] [place] [address] 45469 Anion gap [Moles/Vol] 7 mmol/L Normal 5-15 [facility] Comment on above: Performed By: #### C BCA, CMP #### [facility] ([id number]) [address] [place] [address] 28882 AST [Catalytic activity/Vol] 15 U/L Normal 0-41 [facility] Comment on above: Performed By: #### C BCA, CMP #### [facility] ([id number]) [address] [place] [address] 17981 Bilirubin [Mass/Vol] 1.1 mg/dL Normal 0.3-1.2 [facility] Comment on above: Performed By: #### C BCA, CMP #### [facility] ([id number]) [address] [place] [address] 30722 Calcium [Mass/Vol] 8.5 mg/dL Normal 8.5-10.[address] [facility] Comment on above: Performed By: #### C BCA, CMP #### [facility] ([id number]) [address] [place] [address] 61762 Chloride [Moles/Vol] 93 mmol/L Low 98-109 [facility] Comment on above: Performed By: #### C BCA, CMP #### [facility] ([id number]) [address] [place] [address] 69421 CO2 [Moles/Vol] 28 mmol/L Normal 22-32 [facility] Comment on above: Performed By: #### C BCA, CMP #### [facility] ([id number]) [address] [place] [address] 73905 Creatinine [Mass/Vol] 0.84 mg/dL Normal 0.40-1.00 [facility] Comment on above: Result Comment: METH OD TRACEABLE TO IDMS STANDARD Performed By: #### C ROMERO, CMP #### [facility] ([id number]) [address] [place] [address] 10402 GFR/1.73 sq M.predicted among non-blacks MDRD (S/P/Bld) [Vol rate/Area] 86 mL/min/{1.73_m2} Normal >59 [facility] Comment on above: Result Comment: Reported eGFR is based on the CKD-EPI 2020 equation that does not use a race coefficient. Performed By: #### C BCA, CMP #### [facility] ([id number]) [address] [place] [address] 31277 Glucose [Mass/Vol] 110 mg/dL High 65-[address] [facility] Comment on above: Performed By: #### C BCA, CMP #### [facility] ([id number]) [address] [place] [address] 98200 Potassium [Moles/Vol] 3.1 mmol/L Low 3.5-5.0 [facility] Comment on above: Performed By: #### C BCA, CMP #### [facility] ([id number]) [address] [place] [address] 75732 Protein [Mass/Vol] 7.2 g/dL Normal 6.0-8.[address] [facility] Comment on above: Performed By: #### C BCA, CMP #### [facility] ([id number]) [address] [place] [address] 71650 Sodium [Moles/Vol] 128 mmol/L Low 134-[address] [facility] Comment on above: Performed By: #### C BCA, CMP #### [facility] ([id number]) [address] [place] [address] 50709 Urea nitrogen [Mass/Vol] 19 mg/dL Normal 5-23 [facility] Comment on above: Performed By: #### C BCA, CMP #### [facility] ([id number]) [address] [place] [address] ABDOMEN AND PELVIS WO CON Ton [...] Carlos Escobedo on 05/31/2024 10:00 AM Normal [facility] Surgical Pathologyon 17- 024 Surgical Pathology Normal [facility] Comment on above: Result Comment: [facility] [address] [place] [address] Surgical Pathology Consultation Patient Name:KELLI LAKE:1975 (Age: 48)Gender:FTaken:4Reported:4Physician(s):Geovanni Rivers MD ([phone])Copy To: Rec. #:[id number]: #[id number] Final Pathologic Diagnosis 1. Transverse colon biopsy: [...] Out ao/4Alian Camara MD Interpretation performed at [facility], [address] [place] [address], License number: [id number]. Clinical History Colitis. Gross Description 1. Received in formalin labeled ALEKSANDRA, #1: Transverse BX are 3 edmondson bits/strips of soft tissue, ranging from 0.5-0.9 cm in greatest dimension. Filtered and submitted in a single cassette. (1, ns, [id number], m7) MG 2. Received in formalin labeled ALEKSANDRA, #2: Sigmoid are 5 edmondson bits of soft tissue, ranging from 0.2-0.3 cm in greatest dimension. Filtered and submitted in a single cassette. (1, ns, [id number], m7) MG mj/03/08/2024O Specimen(s) Received 1: Transverse colon biopsies 2: Sigmoid colon biopsy Fee Codes(s): 1; 14406 2; 21774 CBC AND AUTO DIFFon 02-09- 24 ABSOLUTE BASOPHIL 0.0 X10E9/L Normal 0.0-0.[address] [facility] Comment on above: Performed By: #### Marguerite JASSO, 83215-7, CMP, 3040-3 #### [facility] ([id number]) [address] [place] [address] 78978 ABSOLUTE NEUTROPHIL 11.5 X10E9/L High 1.5-6.6 [facility] Comment on above: Performed By: #### Marguerite JASSO, 33972-5, CMP, 0-3 #### [facility] ([id number]) [address] [place] [address] 51545 Basophils/100 WBC (Bld) 0.2 % Normal [facility] Comment on above: Performed By: #### Marguerite JASSO, 96300-3, CMP, 3040-3 #### [facility] ([id number]) [address] [place] [address] 80246 Eosinophils (Bld) [#/Vol] 0.0 10*3/uL Normal 0.0-0.4 [facility] Comment on above: Performed By: #### Marguerite JASSO, 86403-2, CMP, 0-3 #### [facility] ([id number]) [address] [place] [address] 72602 Eosinophils/100 WBC (Bld) 0.1 % Normal [facility] Comment on above: Performed By: #### Marguerite JASSO, 33877-8, CMP, 3040-3 #### [facility] ([id number]) [address] [place] [address] 34712 Erythrocyte distribution width (RBC) [Ratio] 19.1 % High 11.5-15.0 [facility] Comment on above: Performed By: #### Marguerite JASSO, 47267-8, CMP, 3040-3 #### [facility] ([id number]) [address] [place] [address] 87359 Hematocrit (Bld) [Volume fraction] 36.4 % Normal 35-47 [facility] Comment on above: Performed By: #### Marguerite JASSO, 27191-9, CMP, 3040-3 #### [facility] ([id number]) [address] [place] [address] 33532 Hemoglobin (Bld) [Mass/Vol] 12.2 g/dL Normal 11.7-15.5 [facility] Comment on above: Performed By: #### Marguerite JASSO, 43044-8, CMP, 0-3 #### [facility] ([id number]) [address] [place] [address] 44686 Lymphocytes (Bld) [#/Vol] 0.7 10*3/uL Low 1.0-3.5 [facility] Comment on above: Performed By: #### Marguerite JASSO, 77318-6, CMP, 3040-3 #### [facility] ([id number]) [address] [place] [address] 28001 Lymphocytes/100 WBC (Bld) 5.7 % Normal [facility] Comment on above: Performed By: #### Marguerite JASSO, 07347-4, CMP, 3040-3 #### [facility] ([id number]) [address] [place] [address] 89809 MCH (RBC) [Entitic mass] 24.9 pg Low 27-34 [facility] Comment on above: Performed By: #### Marguerite JASSO, 93434-5, CMP, 3040-3 #### [facility] ([id number]) [address] [place] [address] 59489 MCHC (RBC) [Mass/Vol] 33.5 g/dL Normal 32-36 [facility] Comment on above: Performed By: #### Marguerite JASSO, 89826-7, CMP, 3040-3 #### [facility] ([id number]) [address] [place] [address] 89230 MCV (RBC) [Entitic vol] 74 fL Low 80-100 [facility] Comment on above: Performed By: #### Marguerite JASSO, 87679-2, CMP, 3040-3 #### [facility] ([id number]) [address] [place] [address] 46824 Monocytes (Bld) [#/Vol] 0.4 10*3/uL Normal 0-0.9 [facility] Comment on above: Performed By: #### Marguerite BCA, 19977-3, CMP, 3040-3 #### [facility] ([id number]) [address] [place] [address] 32295 Monocytes/100 WBC (Bld) 3.2 % Normal [facility] Comment on above: Performed By: #### Marguerite BCA, 61327-6, CMP, 3040-3 #### [facility] ([id number]) [address] [place] [address] 31390 Neutrophils/100 WBC (Bld) 90.8 % Normal [facility] Comment on above: Performed By: #### Marguerite BCA, 95485-1, CMP, 3040-3 #### [facility] ([id number]) [address] [place] [address] 34182 Platelet mean volume (Bld) [Entitic vol] 8.1 fL Normal 7-12 [facility] Comment on above: Performed By: #### C BCA, 18852-7, CMP, 3040-3 #### [facility] ([id number]) [address] [place] [address] 10836 Platelets (Bld) [#/Vol] 435 10*3/uL Normal 150-450 [facility] Comment on above: Performed By: #### C BCA, 35296-5, CMP, 3040-3 #### [facility] ([id number]) [address] [place] [address] 06331 RBC COUNT 4.90 X10E12/L Normal 3.80-5.20 [facility] Comment on above: Performed By: #### Marguerite BCA, 78897-8, CMP, 3040-3 #### [facility] ([id number]) [address] [place] [address] 31308 WBC (Bld) [#/Vol] 12.6 10*3/uL High 4.0-11.0 [facility] Comment on above: Performed By: #### C BCA, 33282-7, CMP, 3040-3 #### [facility] ([id number]) [address] [place] [address] 65284 COMPREHENSIVE METABOLIC PANE Hoang 02-10-2024 Albumin [Mass/Vol] 4.1 g/dL Normal 3.2-5.[address] [facility] Comment on above: Performed By: #### Marguerite BCA, 26723-4, CMP, 3040-3 #### [facility] ([id number]) [address] [place] [address] 11870 ALP [Catalytic activity/Vol] 53 U/L Normal 39-130 [facility] Comment on above: Performed By: #### C BCA, 17890-3, CMP, 3040-3 #### [facility] ([id number]) [address] [place] [address] 78752 ALT [Catalytic activity/Vol] 10 U/L Normal 0-31 [facility] Comment on above: Performed By: #### C BCA, 10288-5, CMP, 3040-3 #### [facility] ([id number]) [address] [place] [address] 64137 Anion gap [Moles/Vol] 8 mmol/L Normal 5-15 [facility] Comment on above: Performed By: #### C BCA, 17878-6, CMP, 3040-3 #### [facility] ([id number]) [address] [place] [address] 61566 AST [Catalytic activity/Vol] 17 U/L Normal 0-41 [facility] Comment on above: Performed By: #### Marguerite BCA, 98639-6, CMP, 3040-3 #### [facility] ([id number]) [address] [place] [address] 71257 Bilirubin [Mass/Vol] 1.0 mg/dL Normal 0.3-1.2 [facility] Comment on above: Performed By: #### Marguerite BCA, 59063-7, CMP, 3040-3 #### [facility] ([id number]) [address] [place] [address] 86149 Calcium [Mass/Vol] 8.5 mg/dL Normal 8.5-10.[address] [facility] Comment on above: Performed By: #### C BCA, 73478-4, CMP, 3040-3 #### [facility] ([id number]) [address] [place] [address] 82218 Chloride [Moles/Vol] 99 mmol/L Normal 98-109 [facility] Comment on above: Performed By: #### Marguerite BCA, 02225-1, CMP, 3040-3 #### [facility] ([id number]) [address] [place] [address] 14988 CO2 [Moles/Vol] 24 mmol/L Normal 22-32 [facility] Comment on above: Performed By: #### C BCA, 11725-3, CMP, 3040-3 #### [facility] ([id number]) [address] [place] [address] 06618 Creatinine [Mass/Vol] 0.71 mg/dL Normal 0.40-1.00 [facility] Comment on above: Result Comment: METH OD TRACEABLE TO IDMS STANDARD Performed By: #### C ROMERO, 72471-5, CMP, 0-3 #### [facility] ([id number]) [address] [place] [address] 11004 eGFR (CKD-EPI) NON-RACE DEPENDENT >90 Normal >59 [facility] Comment on above: Result Comment: Reported eGFR is based on the CKD-EPI 2020 equation that does not use a race coefficient. Performed By: #### C BCA, 23722-3, CMP, 3040-3 #### [facility] ([id number]) [address] [place] [address] 14566 Glucose [Mass/Vol] 114 mg/dL High 65-[address] [facility] Comment on above: Performed By: #### C BCA, 29108-0, CMP, 0-3 #### [facility] ([id number]) [address] [place] [address] 83443 Potassium [Moles/Vol] 3.7 mmol/L Normal 3.5-5.0 [facility] Comment on above: Performed By: #### C BCA, 31169-7, CMP, 3040-3 #### [facility] ([id number]) [address] [place] [address] 32174 Protein [Mass/Vol] 7.6 g/dL Normal 6.0-8.[address] [facility] Comment on above: Performed By: #### C BCA, 69804-2, CMP, 3040-3 #### [facility] ([id number]) [address] [place] [address] 22526 Sodium [Moles/Vol] 131 mmol/L Low 134-146 [facility] Comment on above: Performed By: #### C ROMERO, 96110-0, CMP, 3040-3 #### [facility] ([id number]) [address] [place] [address] 82183 Urea nitrogen [Mass/Vol] 11 mg/dL Normal 5-23 [facility] Comment on above: Performed By: #### C ROMERO, 98551-6, CMP, 3040-3 #### [facility] ([id number]) [address] [place] [address] 10460 HCG ( test) Ql (U)o n 02-10-2024 Beta HCG ( test) Ql (U) Negative Normal NEG [facility] Comment on above: Performed By: #### 2 106-3 #### [facility] ([id number]) [address] [place] [address] 31032 LIPASEon 02-10-2024 Lipase [Catalytic activity/Vol] 42 U/L High 17-40 [facility] Comment on above: Performed By: #### C ROMERO, 74274-1, CMP, 3040-3 #### [facility] ([id number]) [address] [place] [address] 67965 Lactate (P caroline) [Moles/Vol]o n 02-10-2024 LACTATE W/REFLEX 1.1 mmol/L Normal 0.4-2.0 [facility] Comment on above: Result Comment: Result did not trigger repeat Lactate, re-order if needed. Performed By: #### C BCA, 22431-9, CMP, 3040-3 #### [facility] ([id number]) [address] [place] [address], [place] [address] URN MACROSCOPIC NURon 2023 BILIRUBIN MEÑO Small Abnormal NEG [facility] Comment on above: Performed By: #### N UM #### [facility] ([id number]) [address] [place] [address] BLOOD/HGB MEÑO Negative Normal NEG [facility] Comment on above: Performed By: #### N UM #### [facility] ([id number]) [address] [place] [address] GLUCOSE MEÑO Negative Normal NEG [facility] Comment on above: Performed By: #### N UM #### [facility] ([id number]) [address] [place] [address] KETONES MEÑO 80 mg/dL Abnormal NEG [facility] Comment on above: Performed By: #### N UM #### [facility] ([id number]) [address] [place] [address] [place] [address] LEUKOCYTE ESTERASE MEÑO Negative Normal NEG [facility] Comment on above: Performed By: #### N UM #### [facility] ([id number]) [address] [place] [address] [place] [address] NITRITE MEÑO Negative Normal NEG [facility] Comment on above: Performed By: #### N UM #### [facility] ([id number]) [address] [place] [address] [place] [address] PH MEÑO 6.0 Normal 5.0-8.5 [facility] Comment on above: Performed By: #### N UM #### [facility] ([id number]) [address] [place] [address] PROTEIN MEÑO 30 mg/dL Abnormal NEG [facility] Comment on above: Performed By: #### N UM #### [facility] ([id number]) [address] [place] [address] [place] [address] SPECIFIC GRAVITY MEÑO 1.025 Normal 1.003-1.035 [facility] Comment on above: Performed By: #### N UM #### [facility] ([id number]) [address] [place] [address], [place] [address] UROBILINOGEN MEÑO 0.2 eu/dL Normal <1.1 [facility] [facility] [place] Comment on above: Performed By: #### N UM #### [facility] ([id number]) [address] [place] [address], [place] [address] Multiple labsOrdered By: Stacia Villa on 01-16-2024 [facility] BASIC METABOLIC PANLon 01-06 Anion gap [Moles/Vol] 8 mmol/L Normal 5-15 [facility] Comment on above: Performed By: #### B MP #### [facility] ([id number]) [address], [address] [place] [address] Calcium [Mass/Vol] 8.6 mg/dL Normal 8.5-10.5 [facility] Comment on above: Performed By: #### B MP #### [facility] ([id number]) [address], [address] [place] [address] Chloride [Moles/Vol] 105 mmol/L Normal 98-109 [facility] Comment on above: Performed By: #### B MP #### [facility] ([id number]) [address], [address] [place] [address] CO2 [Moles/Vol] 25 mmol/L Normal 22-32 [facility] Comment on above: Performed By: #### B MP #### [facility] ([id number]) [address], [address] [place] [address] Creatinine [Mass/Vol] 0.74 mg/dL Normal 0.40-1.00 [facility] Comment on above: Result Comment: METH OD TRACEABLE TO IDMS STANDARD Performed By: #### B MP #### [facility] ([id number]) [address], [address] [place] [address] eGFR (CKD-EPI) NON-RACE DEPENDENT >90 Normal >59 [facility] Comment on above: Result Comment: Reported eGFR is based on the CKD-EPI 2020 equation that does not use a race coefficient. Performed By: #### B MP #### [facility] ([id number]) [address], [address] [place] [address] Glucose [Mass/Vol] 87 mg/dL Normal 65-99 [facility] Comment on above: Performed By: #### B MP #### [facility] ([id number]) [address], [address] [place] [address] Potassium [Moles/Vol] 3.9 mmol/L Normal 3.5-5.0 [facility] Comment on above: Performed By: #### B MP #### [facility] ([id number]) [address], [address] [place] [address] Sodium [Moles/Vol] 138 mmol/L Normal 134-146 [facility] Comment on above: Performed By: #### B MP #### [facility] ([id number]) [address] [place] [address] Urea nitrogen [Mass/Vol] 5 mg/dL Normal 5-23 [facility] Comment on above: Performed By: #### B MP #### [facility] ([id number]) [address], [address] [place] [address] Basic Metabolic Panelon 05- Anion gap [Moles/Vol] 8 mmol/L 5 - 15 mmol/L [facility] Calcium [Mass/Vol] 8.6 mg/dL 8.5 - 10. 5 mg/dL [facility] Chloride [Moles/Vol] 105 mmol/L 98 - 109 mmol/L [facility] CO2 [Moles/Vol] 25 mmol/L 22 - 32 mmol/L [facility] Creatinine [Mass/Vol] 0.74 mg/dL 0.40 - 1.00 mg/dL [facility] Comment on above: METHOD TRACEABLE TO [facility] STANDARD eGFR (CKD-EPI)non-race dependent - PINF [facility] Comment on above: Reported eGFR is based on the CKD-EPI 2020 equation that does not use a race coefficient. Glucose [Mass/Vol] 87 mg/dL 65 - 99 mg/dL [facility] Potassium [Moles/Vol] 3.9 mmol/L 3.5 - 5.0 mmol/L [facility] Sodium [Moles/Vol] 138 mmol/L 134 - 146 mmol/L [facility] Urea nitrogen [Mass/Vol] 5 mg/dL 5 - 23 mg/dL [facility] INFLUENZA A AND B AGon 08-27 [facility] SEE BELOW Normal [facility] Comment on above: Result Comment: Nega tive for Flu A protein angiten. Infection due to Flu A cannot be ruled out. Flu A angiten in the sample may be below the detection limit of the test. Performed By: #### I NFLUAB #### [facility] [address] [place] [address] Jessieyamile Brannonen INFLUBNEGH SEE BELOW Normal [facility] Comment on above: Result Comment: Nega tive for Flu B protein antigen. Infection due to Flu B cannot be ruled out. Flu B antigen in the sample may be below the detection limit of the test. Performed By: #### I NFLUAB #### [facility] [address] [place] [address] [facility] Negative Normal NEGATIVE SEE COMMENT [facility] Comment on above: Performed By: #### I NFLUAB #### [facility] [address] [place] [address] Jessie Oksana INFLUENZA B AG Negative Normal NEGATIVE SEE COMMENT [facility] Comment on above: Performed By: #### I NFLUAB #### [facility] [address] [place] [address] Jessie Gandhi INTERNAL CONTROLS Within Normal Limits Normal Wi thin Normal Limits [facility] Comment on above: Performed By: #### I NFLUAB #### [facility] [address] [address] Jessie Gandhi Vital Signs Date Time Vital Sign Value Performing Clinician Facility 11-21-2024 11:05-0400 Diastolic blood pressure 77 mm[Hg] Geovanni Berniehas DO Work Phone: [facility] 11-21-2024 11:05-0400 Heart rate 62 /min Geovanni Yuhas DO Work Phone: [facility] 11-21-2024 11:05-0400 Respiratory rate 16 /min Geovanni Yuhas DO Work Phone: [facility] 11-21-2024 11:05-0400 SaO2% (BldA) [Mass fraction] 100 % Geovanni Yuhas DO Work Phone: [facility] 11-21-2024 11:05-0400 Systolic blood pressure 117 mm[Hg] Geovanni Yuhas DO Work Phone: [facility] 11-21-2024 08:21-0400 Body height 154.94 cm Geovanni Yuhas DO Work Phone: [facility] 11-21-2024 08:21-0400 Body weight 61.23 kg Geovanni Yuhas DO Work Phone: [facility] 06-27-2024 16:39-0500 Diastolic blood pressure 70 mm[Hg] Geovanni Yuhas DO Work Phone: [facility] [employer] [facility] 06-27-2024 16:39-0500 Systolic blood pressure 96 mm[Hg] [facility] DO [facility] 06-27-2024 15:58-0500 Body height 154.9 cm Geovanni Yuhas DO Work Phone: [facility] [employer] [facility] 06-27-2024 15:58-0500 Body mass index (BMI) [Ratio] 24.75 kg/m2 Geovanni Yuhas DO Work Phone: [facility] [employer] [facility] 06-27-2024 15:58-0500 Body temperature 98.1 [degF] Geovanni Gavirias DO Work Phone: [facility] [employer] [facility] 06-27-2024 15:58-0500 Body weight 59.42 kg Geovanni Gavirias DO Work Phone: [facility] [employer] [facility] 06-27-2024 15:58-0500 Heart rate 72 /min Geovanni Gavirias DO Work Phone: [facility] [employer] [facility] 06-27-2024 15:58-0500 Respiratory rate 18 /min Geovanni Rivers DO Work Phone: [facility] 06-27-2024 15:58-0500 SaO2% (BldA) [Mass fraction] 98 % Geovanni Rivers DO Work Phone: [facility] 05-31-2024 16:37-0400 Body height 154.9 cm Geovanni Rivers DO Work Phone: [facility] 05-31-2024 16:37-0400 Body mass index (BMI) [Ratio] 23.83 kg/m2 Geovanni Rivers DO Work Phone: [facility] 05-31-2024 16:37-0400 Body temperature 98.1 [degF] Geovanni Rivers DO Work Phone: [facility] 05-31-2024 16:37-0400 Body weight 57.2 kg Geovanni Rivers DO Work Phone: [facility] 05-31-2024 16:37-0400 Diastolic blood pressure 60 mm[Hg] Geovanni Gavirias DO Work Phone: [facility] 05-31-2024 16:37-0400 Heart rate 79 /min Geovanni Rivers DO Work Phone: [facility] 05-31-2024 16:37-0400 SaO2% (BldA) [Mass fraction] 97 % Geovanni Gavirias DO Work Phone: [facility] [employer] [facility] 05-31-2024 16:37-0400 Systolic blood pressure 120 mm[Hg] Geovanni Gavirias DO Work Phone: [facility] 04-19-2024 14:37-0400 Diastolic blood pressure 48 mm[Hg] Geovanni Gibbshas DO Work Phone: [facility] 04-19-2024 14:37-0400 Systolic blood pressure 100 mm[Hg] Geovanni Gavirias DO Work Phone: [facility] 04-19-2024 14:34-0400 Body height 154.9 cm Geovanni Gavirias DO Work Phone: [facility] 04-19-2024 14:34-0400 Body mass index (BMI) [Ratio] 25.47 kg/m2 Geovanni Gavirias DO Work Phone: [facility] 04-19-2024 14:34-0400 Body temperature 97.81 [degF] Geovanni Gavirias DO Work Phone: [facility] 04-19-2024 14:34-0400 Body weight 61.15 kg Geovanni Gavirias DO Work Phone: [facility] [employer] [facility] 04-19-2024 14:34-0400 Heart rate 82 /min Geovanni Gavirias DO Work Phone: [facility] 04-19-2024 14:34-0400 Respiratory rate 18 /min Geovanni Gavirias DO Work Phone: [facility] 04-19-2024 14:34-0400 SaO2% (BldA) [Mass fraction] 99 % Goevanni Gavirias DO Work Phone: [facility] 03-16-2024 11:17-0400 Body height 154.9 cm Geovanni Gavirias DO Work Phone: [facility] 03-16-2024 11:17-0400 Body mass index (BMI) [Ratio] 24.96 kg/m2 Geovanni Rivers DO Work Phone: [facility] 03-16-2024 11:17-0400 Body temperature 98.2 [degF] Geovanni Gavirias DO Work Phone: [facility] 03-16-2024 11:17-0400 Body weight 59.92 kg Geovanni Gavirias DO Work Phone: [facility] 03-16-2024 11:17-0400 Diastolic blood pressure 80 mm[Hg] Geovanni Rivers DO Work Phone: [facility] 03-16-2024 11:17-0400 Heart rate 71 /min Geovanni Rivers DO Work Phone: [facility] 03-16-2024 11:17-0400 SaO2% (BldA) [Mass fraction] 98 % Geovanni Rivers DO Work Phone: [facility] 03-16-2024 11:17-0400 Systolic blood pressure 100 mm[Hg] Geovanni Rivers DO Work Phone: [facility] 03-07-2024 12:07-0400 Body height 156.8 cm Pmh 1 [facility] 03-07-2024 12:07-0400 Body mass index (BMI) [Ratio] 24.34 kg/m2 Pmh 1 [facility] 03-07-2024 12:07-0400 Body weight 59.88 kg Pmh 1 [facility] 02-08-2024 10:25-0400 Diastolic blood pressure 68 mm[Hg] Geovanni Rivers DO Work Phone: [facility] 02-08-2024 10:25-0400 Systolic blood pressure 94 mm[Hg] Geovanni Gavirias DO Work Phone: [facility] 02-08-2024 09:35-0400 Body height 154.9 cm Geovanni Rivers DO Work Phone: [facility] 02-08-2024 09:35-0400 Body mass index (BMI) [Ratio] 25.07 kg/m2 Geovanni Rivers DO Work Phone: [facility] 02-08-2024 09:35-0400 Body temperature 98.1 [degF] Geovanni Rivers DO Work Phone: [facility] 02-08-2024 09:35-0400 Body weight 60.19 kg Geovanni Rivers DO Work Phone: [facility] 02-08-2024 09:35-0400 Heart rate 78 /min Geovanni Rivers DO Work Phone: [facility] 02-08-2024 09:35-0400 Respiratory rate 18 /min Geovanni Rivers DO Work Phone: [facility] 02-08-2024 09:35-0400 SaO2% (BldA) [Mass fraction] 96 % Geovanni Rivers DO Work Phone: [facility] 01-27-2024 14:41-0400 Body height 154.9 cm Cande Rand APRN-MAGNETIC PROSPECTING SUPERVISOR Work Phone: [facility] 01-27-2024 14:41-0400 Body mass index (BMI) [Ratio] 26.07 kg/m2 Cande Rand EMBLEM FUSER TENDER-MAGNETIC PROSPECTING SUPERVISOR Work Phone: [facility] 01-27-2024 14:41-0400 Body temperature 97.3 [degF] Cande Rand APRN-MAGNETIC PROSPECTING SUPERVISOR Work Phone: [facility] 01-27-2024 14:41-0400 Body weight 62.6 kg Cande Rand APRN-MAGNETIC PROSPECTING SUPERVISOR Work Phone: [facility] 01-27-2024 14:41-0400 Diastolic blood pressure 60 mm[Hg] Cande Rand APRN-MAGNETIC PROSPECTING SUPERVISOR Work Phone: [facility] 01-27-2024 14:41-0400 Heart rate 70 /min Cande VU Work Phone: [facility] [employer] [facility] 01-27-2024 14:41-0400 Respiratory rate 12 /min Cande BACKMAGNETIC PROSPECTING SUPERVISOR Work Phone: [facility] 01-27-2024 14:41-0400 SaO2% (BldA) [Mass fraction] 99 % Cande VU Work Phone: [facility] 01-27-2024 14:41-0400 Systolic blood pressure 112 mm[Hg] Cande BACKMAGNETIC PROSPECTING SUPERVISOR Work Phone: [facility] 01-07-2024 09:36-0400 Body height 154.9 cm Cande BACKMAGNETIC PROSPECTING SUPERVISOR Work Phone: [facility] 01-07-2024 09:36-0400 Body mass index (BMI) [Ratio] 27.21 kg/m2 Cande BACKMAGNETIC PROSPECTING SUPERVISOR Work Phone: [facility] 01-07-2024 09:36-0400 Body temperature 98.29 [degF] Cande VU Work Phone: [facility] 01-07-2024 09:36-0400 Body weight 65.32 kg Cande ABCKMAGNETIC PROSPECTING SUPERVISOR Work Phone: [facility] 01-07-2024 09:36-0400 Diastolic blood pressure 62 mm[Hg] Cande BACKMAGNETIC PROSPECTING SUPERVISOR Work Phone: [facility] 01-07-2024 09:36-0400 Heart rate 69 /min Cande VU Work Phone: [facility] 01-07-2024 09:36-0400 SaO2% (BldA) [Mass fraction] 96 % Cande BACKMAGNETIC PROSPECTING SUPERVISOR Work Phone: [facility] 01-07-2024 09:36-0400 Systolic blood pressure 102 mm[Hg] Cande Rand EMBLEM FUSER TENDER-MAGNETIC PROSPECTING SUPERVISOR Work Phone: [facility] Encounters Encounter Date Encounter Type Care Provider Facility Start: 11-21-2024 Non-patient / Non-visit Geovanni parada DO Work Phone: [facility]ending [facility] Work Phone: Start: 11-21-2024 End: 11-21-2024 Admission to same day surgery center Geovanni Rivers DO Work Phone: [facility] Work Phone: Start: 11-21-2024 End: 11-21-2024 ambulatory Geovanni Rivers DO Work Phone: [facility] Work Phone: Start: 11-09-2024 End: 11-09-2024 ambulatory [facility] Work Phone: Start: 11-09-2024 End: 11-09-2024 Patient encounter procedure [facility] Work Phone: Start: 08-08-2024 End: 08-08-2024 ambulatory [facility] Start: 06-27-2024 End: 06-27-2024 Office outpatient visit 25 minutes Geovanni Rivers DO Work Phone: [facility] Internal [facility] - Family Medicine Comment on above: IBD (inflammatory mira wel disease); Heartburn Start: 06-27-2024 End: 06-27-2024 ambulatory [facility] Start: 06-08-2024 End: 06-09-2024 Telephone encounter Julia Boss CMA [facility] Internal Medicine - Family Medicine Start: 05-31-2024 End: 05-31-2024 Office outpatient visit 25 minutes [facility] Comment on above: Ulcerative rectosigm oiditis without complication ([facility]) (Primary Dx); IBD (inflammatory bowel disease); Heartburn; Nausea and vomiting, unspecified vomiting type; Hyponatremia with extracellular fluid depletion Start: 05-31-2024 End: 05-31-2024 ambulatory [facility] Start: 05-31-2024 End: 05-31-2024 Emergency department patient visit [facility] Start: 05-27-2024 End: 05-27-2024 ambulatory Mandy Polo RN [facility] Start: 05-02-2024 End: 05-02-2024 Telephone encounter Herminio Leos CMA [facility] Internal Medicine - Family Medicine Start: 05-01-2024 End: 05-03-2024 Telephone encounter Herminio Leos CMA [facility] - [facility] Start: 04-19-2024 End: 04-19-2024 Office outpatient visit 25 minutes Geovanni Rivers DO Work Phone: [facility] - [facility] Comment on above: IBD (inflammatory mira wel disease) (Primary Dx) Start: 04-19-2024 End: 04-19-2024 ambulatory [facility] Start: 03-16-2024 End: 03-16-2024 Office outpatient visit 25 minutes Geovanni Rivers DO Work Phone: [facility] - [facility] Comment on above: IBD (inflammatory mira wel disease) (Primary Dx); Colitis due to Clostridioides difficile Start: 03-16-2024 End: 03-16-2024 ambulatory [facility] Start: 03-08-2024 End: 03-08-2024 Evaluation and management of inpatient [facility] Start: 03-07-2024 End: 03-07-2024 ambulatory [facility] Pat Phone Call Provider 1 [facility] - Pre Ad[facility] Start: 03-07-2024 End: 03-07-2024 ambulatory [facility] Start: 02-10-2024 End: 02-10-2024 Emergency department patient visit [facility] Start: 02-08-2024 End: 02-08-2024 ambulatory [facility] Jeannette [facility] Start: 02-08-2024 End: 02-08-2024 Office outpatient visit 25 minutes Geovanni Rivers DO Work Phone: [facility] - [facility] Comment on above: Colitis (Primary Dx) ; Hypotension, unspecified hypotension type Start: 01-27-2024 End: 01-27-2024 Office outpatient visit 15 minutes Cande Rand EMBLEM FUSER TENDER-MAGNETIC PROSPECTING SUPERVISOR Work Phone: [facility] - [facility] Medicine Comment on above: Colitis due to Clost ridioides difficile (Primary Dx) Start: 01-27-2024 End: 01-27-2024 ambulatory [facility] Start: 01-25-2024 End: 01-25-2024 Orders Only Not In System Ref Prov [facility] General Surgery Start: 01-24-2024 End: 01-24-2024 Refill Felisha Camille [facility] Internal Medicine - Family Medicine Start: 01-07-2024 End: 01-08-2024 ambulatory [facility] Start: 01-07-2024 End: 01-07-2024 Office outpatient visit 15 minutes Cande Rand EMBLEM FUSER TENDER-MAGNETIC PROSPECTING SUPERVISOR Work Phone: [facility] - [facility] Comment on above: Colitis (Primary Dx) ; Hypokalemia; Reactive depression; Screen for colon cancer Start: 01-07-2024 End: 01-07-2024 ambulatory [facility] Start: 08-27-2019 End: 08-27-2019 [...] Adult depression scr eening assessment Cande Rand EMBLEM FUSER TENDER-MAGNETIC PROSPECTING SUPERVISOR Work Phone: Start: 01-16-2024 MULTIPLE LABS Not In Sy stem Ref Prov Start: 01-07-2024 Follow-up visit Follow-up [facility] Start: 01-07-2024 Adult depression scr eening assessment Cande Rand EMBLEM FUSER TENDER-MAGNETIC PROSPECTING SUPERVISOR Work Phone: Plan of Treatment Date Care Activity Detail Author Start: 06-27-2025 Adult BMI Screening Adult BMI Screen ing [facility] Start: 06-27-2025 Depression Screening Depression Scre ening [facility] Start: 05-31-2025 Adult BMI Screening Adult BMI Screen ing [facility] Start: 05-31-2025 Depression Screening Depression Scre ening [facility] Start: 05-31-2025 Tobacco Screening Tobacco Screening [facility] Start: 04-19-2025 Adult BMI Screening Adult BMI Screen ing [facility] Start: 04-19-2025 Depression Screening Depression Scre ening [facility] Start: 04-19-2025 Tobacco Screening Tobacco Screening [facility] Start: 03-16-2025 Adult BMI Screening Adult BMI Screen ing [facility] Start: 03-16-2025 Depression Screening Depression Scre ening [facility] Start: 03-16-2025 Tobacco Screening Tobacco Screening [facility] Start: 03-08-2025 Adult BMI Screening Adult BMI Screen ing [facility] Start: 03-08-2025 Tobacco Screening Tobacco Screening [facility] Start: 02-07-2025 Adult BMI Screening Adult BMI Screen ing [facility] Start: 02-07-2025 Depression Screening Depression Scre ening [facility] Start: 02-07-2025 Tobacco Screening Tobacco Screening [facility] Start: 01-26-2025 Adult BMI Screening Adult BMI Screen ing [facility] Start: 01-26-2025 Depression Screening Depression Scre ening [facility] Start: 01-26-2025 Tobacco Screening Tobacco Screening [facility] Start: 01-06-2025 Adult BMI Screening Adult BMI Screen ing [facility] Start: 01-06-2025 Depression Screening Depression Scre ening [facility] Start: 01-06-2025 Tobacco Screening Tobacco Screening [facility] Start: 11-21-2024 [facility] Start: 08-08-2024 End: 08-08-2024 Patient encounter procedure 08/08/2024 2:30 PM EST [facility] [address] [place] [address] Geovanni Rivers, DO [address] [place] [address] [facility] - [facility] Start: 06-27-2024 End: 06-27-2024 Patient encounter procedure 06/27/2024 4:00 PM EST [facility] [address] [place] [address] Geovanni Rivers, DO [address] [place] [address] [facility] Start: 05-31-2024 End: 05-31-2024 Patient encounter procedure 05/31/2024 1:40 PM EDT Office Visit [facility] - Family Medicine [address] [place] [address] Leonel Avalos, EMBLEM FUSER TENDER-MAT MACHINE TENDER [address] [place] [address] [facility] Start: 04-19-2024 End: 04-19-2024 Patient encounter procedure 04/19/2024 2:45 PM EDT Office Visit [facility] Internal [facility] - Family Medicine [address] [place] [address] Geovanni Rivers, DO [address] [place] [address] [facility] Internal Medicine - Family [facility] Start: 03-16-2024 End: 03-16-2024 Patient encounter procedure 03/16/2024 11:15 AM EDT Office Visit [facility] Internal Medicine - Family [facility] [address] [place] [address] Geovanni Rivers, DO [address] [place] [address] [facility] Internal [facility] - [facility] Start: 03-08-2024 End: 03-08-2024 Admission to same day surgery center 03/08/2024 10:00 AM EDT - 03/08/2024 11:00 AM EDT Surgery [facility] [address] [facility] [place] [address] Geovanni Rivers, DO [address] [place] [address] COLONOSCOPY DIAGNOSTIC / SCREENING [98180 (CPT )] [facility] Comment on above: COLONOSCOPY DIAGNOST IC / SCREENING [64483 (CPT )] Start: 03-08-2024 Subsequent hospital visit by physician 03/08/2024 10:00 AM EDT Hospital Encounter [facility] [address] [facility] [place] [address] Geovanni Rivers, DO [address] [place] [address] [facility] Start: 03-08-2024 End: 03-08-2024 Colonoscopy flx dx w/collj spec when pfrmd [facility] Start: 03-07-2024 End: 03-07-2024 ambulatory 03/07/2024 3:40 PM EDT Support Visit [facility] - Pre Admit [address] [place] [id number] [facility] - Pre Admit Start: 01-27-2024 End: 01-27-2024 Patient encounter procedure 01/27/2024 2:40 PM EDT Office Visit [facility] Internal Medicine - Family Medicine [address] [place] [id number] Cande Rand, EMBLEM FUSER TENDER-MAGNETIC PROSPECTING SUPERVISOR [address] [place] [address] [facility] - Family [facility] Start: 1998 Screening for malign ant neoplasm of cervix Pap Smear [facility] Start: 1996 DTaP,Tdap and Td Vaccines (1 - Tdap) DTaP,Tdap and Td Vaccines (1 - Tdap) [facility] Start: 1995 Adult BMI Follow Up Plan Adult BMI Follow Up Plan [facility] End: 03-16-2025 C-reactive protein C-reactive protein Lab Routine IBD (inflammatory bowel disease) 1 Occurrences starting 03/16/2024 until 03/16/2025 [email or web address] Work Phone: Comment on above: 1 Occurrences starti ng 03/16/2024 until 03/16/2025 End: 01-06-2025 Colonoscopy Colonoscopy GI Routine Screen for colon cancer 1 Occurrences starting 01/07/2024 until 01/06/2025 [email or web address] Work Phone: Comment on above: 1 Occurrences starti ng 01/07/2024 until 01/06/2025 End: 02-07-2025 Colonoscopy Colonoscopy GI Routine Colitis 1 Occurrences starting 02/08/2024 until 02/07/2025 [employer] Work Phone: Comment on above: 1 Occurrences starti ng 02/08/2024 until 02/07/2025 Colonoscopy flx dx w/collj spec when pfrmd COLONOSCOPY DIAGNOSTIC / SCREENING Colitis [facility] End: 03-16-2025 Cytoplasmic Neutrophilic Ab, S Cytoplasmic Neutrophilic Ab, S Lab Routine IBD (inflammatory bowel disease) 1 Occurrences starting 03/16/2024 until 03/16/2025 [facility] Comment on above: 1 Occurrences starti ng 03/16/2024 until 03/16/2025 Patient Education Hemorrhoids ED Colitis - Discharge instructions Know your Meds [facility] Work Phone: [facility] Payers Date Payer Category Payer Self-pay 2023 Medicaid [employer] [facility] O [id number] 2023-Present [phone] [address] [place] [address] [id number] 2023 Medicaid HMO [employer] [id number] 2023 Medicaid [id number] 1977 Unknown [id number] 1977 Unknown [id number] 1977 Unknown [id number] [id number] 1977 Unknown [id number] [id number] 1977 Unknown [id number] 2.16.840.1.445101.3.579.2.1285 1977 Unknown [id number] 2.16.840.1.746236.3.579.2.1285 1977 Unknown [id number] 2.16.840.1.319872.3.579.2.1285 1977 Unknown [id number] 2.16840.1.512020.3.579.2.1285 1977 Unknown [id number] 2.16840.1.800013.3.579.2.1285 1977 Unknown [id number] 2.840.1.731499.3.579.2.1285 1977 Unknown [id number] 2.16.840.1.571408.3.579.2.1285 1977 Unknown [id number] 2.16840.1.260401.3.579.2.1285 1977 Unknown [id number] 2.16840.1.138677.3.579.2.1285 1977 Unknown [id number] [id number] 1959 Unknown [id number] Unknown [id number] [id number] Social History Date Type Detail Facility Start: 01-07-2024 End: 11-21-2024 Tobacco smoking status DCIS Ex-smoker [facility] History of tobacco use Current smoker [facility] History of tobacco use Cigarette Smoker P [facility] Start: 01-07-2024 End: 06-27-2024 Cigarettes smoked current (pack per day) - Reported 0.5 [facility] Start: 01-07-2024 Tobacco use and exposure Smokeless tobacco non-user [facility] Start: 01-27-2024 End: 06-27-2024 Alcoholic beverage intake Ex-drinker (finding) [facility] Start: 01-27-2024 End: 06-27-2024 Tobacco use panel [facility] Adolescent depressio n screening assessment 0 [facility] Start: 06-28-2023 Alcohol Comment Rarely [facility] [employer] of Addiction Medicine (ABAM) [facility] Start: 1975 Sex assigned at Not on file P [facility] Start: 05-13-2022 End: 11-21-2024 Sex Female (finding) [facility] Tobacco smoking stat us DCIS Unknown if ever smoked [facility] Work Phone: Start: 1975 Sex Assigned At Female F [facility] Goals Date Patient Goal Desired Activity /State Clinical Notes 11-10-2023 to 11-21-2024 Note Date & Type Note Facility 11-21-2024 Procedure note [facility] 11-09-2024 Evaluation note Authored November 09, 2024 11:57am 49-year-old female referred to the GI clinic for evaluation of ulcerative colitis. Patient had a colonoscopy a year ago which showed left-sided colitis consistent with UC. Patient is currently on mesalamine 400 mg twice daily. Will arrange for colonoscopy. Will check CBC CRP and fecal calprotectin Will increase mesalamine to 1.2 g twice daily [facility] Work Phone: [phone] History of Present illness Narrative* Geovanni Rivers, [...] Testing No results found. Geovanni Rivers DO., [facility] Office: [phone] documented in [facility] encounter[facility]10-[facility]-2024 Miscellaneous Notes* Telephone Encounter - Julia [...] note. Pt verbalizes understanding. documented in this encounterDet[facility]10-17-2024 Telephone encounter Note* Telephone Encounter - Julia Boss CMA - 06/08/2024 1:13 PM EDT Pt called and states that since she has been taking the pepcid her indigestion is worse especially at night. She has been taking it for about a week. Please advise. [facility]10-17-2024 Telephone encounter Note* Telephone Encounter - [...] her bed on a brick or 2x4 [facility]10-17-2024 Telephone encounter Note* Telephone Encounter - Julia Boss CMA - 06/08/2024 1:13 PM EDT Called pt. Read note. Pt verbalizes understanding. [facility]10-09-2024 History of Present illness Narrative* Geovanni [...] -will monitor serially Subjective FOLLOW-UP: EMERGENCY DEPARTMENT ([place]) and hospital visit ([place]) Patient was discharged from the facility on: 05/31/2024 from the ED, and 05/25/2024 for hospital visit at [place] Diagnosis was: 1. Was admitted to [place] for nausea vomiting and colitis. CT showed [...] so presented to the emergency department at [place]. Work-up and testing included: Surgery or biopsies? [...] She has been referred to Gastroenterology at [facility], but her appointment is not until [...] Exam Vitals reviewed. Exam conducted with a phone circuit operator present (Mother). Constitutional: General: She is not [...] the abdomen or pelvis. Geovanni Rivers DO., [facility] Office: [phone] documented in this encounterProMedica Health [id number] Miscellaneous Notes* Telephone Encounter - Mandy Polo RN - 05/27/2024 8:17 AM EDT ----- Message from Eun sent at 05/27/2024 8:13 AM EDT ----- Contract: 198 - Was just discharged yesterday from ER and the 2 antibiotic pills she has questions about. * Telephone Encounter - Mandy Polo RN - 05/27/2024 8:17 AM EDT Contract: 198 Was hospitalized ([place]) x 5 days for a Colitis flair [...] her on Augmentin Will speak to provider forestry extension specialist to discuss Reason for Disposition [1] Follow-up call from patient regarding patient's clinical status AND [2] information urgent Protocols used: PCP Call - No Triage-A- * Telephone Encounter - Mandy Polo RN - 05/27/2024 8:[address] Rivers on his cell phone- warm transferred him to [facility] documented in this encounterDetw[facility]10-[facility]-2024 Telephone encounter Note* Telephone Encounter - Mandy Polo RN - 05/27/2024 8:17 AM EDT ----- Message from Eun sent at 05/27/2024 8:13 AM EDT ----- Contract: 198 - Was just discharged yesterday from ER and the 2 antibiotic pills she has questions about. [facility]10-05-2024 Telephone encounter Note* Telephone Encounter - Mandy Polo RN - 05/27/2024 8:17 AM EDT Contract: 198 Was hospitalized ([place]) x 5 days for a Colitis flair [...] her on Augmentin Will speak to provider forestry extension specialist to discuss Reason for Disposition [1] Follow-up call from patient regarding patient's clinical status AND [2] information urgent Protocols used: PCP Call - No Triage-A- [facility]10-05-2024 Telephone encounter Note* Telephone Encounter - Mandy Polo RN - 05/27/2024 8:[address] Rivers on his cell phone- warm transferred him to [facility]09-10-2024 Miscellaneous Notes* Telephone Encounter - Herminio Leos CMA - 05/02/2024 10:24 AM EDT Message noted. I have no other medications that I can offer. I suggest that we have her see a jacquard loom carpet weaver at this time. Closest are in [place]. I can make arrangements if she is willing Note documented in [facility] encounterPro[facility] [id number] Telephone encounter Note* Telephone Encounter - Herminio Leos CMA - 05/02/2024 10:24 AM EDT Message noted. I have no other medications that I can offer. I suggest that we have her see a jacquard loom carpet weaver at this time. Closest are in [place]. I can make arrangements if she is willing Note [facility] [employer] [id number] Miscellaneous Notes* Telephone Encounter - Herminio Leos [...] suggest that we have her see a jacquard loom carpet weaver at this time. Closest are in [place]. I can make arrangements if she is willing * Telephone Encounter - Delmis Red CMA - 05/01/2024 2:25 PM EDT Patient agrees to see specialist * Telephone Encounter - Geovanni Rivers DO - 05/01/2024 2:25 PM EDT Message noted. A referral to Shakira Arias at [facility], was sent today The patient can schedule her appointment at any time. documented in this encounterDetwiler [facility] Hospital09-09-2024 Telephone encounter Note* Telephone Encounter - Herminio Leos CMA - 05/01/2024 2:25 PM EDT Pt called and would like to let you know that she had side effects of new medication. It caused herto have nausea and cramping since last week she stopped after 3 days and is feeling better. Do you want to try something else? Pharmacy is listed and correct. [facility]09-09-2024 Telephone encounter Note* Telephone Encounter - Geovanni Rivers DO - 05/01/2024 2:25 PM EDT Message noted. I have no other medications that I can offer. I suggest that we have her see a jacquard loom carpet weaver at this time. Closest are in [place]. I can make arrangements if she is willing [facility]09-09-2024 Telephone encounter Note* Telephone Encounter - Delmis Red CMA - 05/01/2024 2:25 PM EDT Patient agrees to see specialist [facility]09-09-2024 Telephone encounter Note* Telephone Encounter - Geovanni Rivers DO - 05/01/2024 2:25 PM EDT Message noted. A referral to Shakira Arias, at [facility], was sent today The patient can schedule her appointment at any time. [facility]08-28-2024 History of Present illness Narrative* Geovanni Rivers DO - 04/19/2024 2:30 PM EDT IM PROGRESS NOTE Patient - Kelli Lake Age - 49 y.o. [facility] 1975 [id number]ESS[facility] & PLAN 1. IBD (inflammatory bowel [...] Exam Vitals reviewed. Exam conducted with a phone circuit operator present (Mother). Constitutional: General: She is not [...] esterase MEÑO 02/10/2024 Negative Negative^Negative Final Nitrite [facility] 02/10/2024 Negative Negative^Negative Final Ph 02/10/2024 6.0 5.0 - 8.5 Final Protein MEÑO 02/10/2024 30 (A) Negative^Negative mg/dL Final Urine glucose MEÑO 02/10/2024 Negative Negative^Negative mg/dL Final Ketones [facility] 02/10/2024 80 (A) Negative^Negative mg/dL Final Urobilinogen ME[facility] 02/10/2024 0.2 <1.1 eu/dL Final Bilirubin [facility] 02/10/2024 Small (A) Negative^Negative Final Hemoglobin [facility] 02/10/2024 Negative Negative^Negative Final Nursing urine 02/10/2024 Negative Negative^Negative Final Other Testing No results found. Geovanni Rivers DO., [facility] Office: [phone] documented in this encounterDetwiler Memorial Hospital07-25-2024 History of Present illness Narrative* Geovanni Rivers DO - 03/16/2024 11:15 AM EDT IM PROGRESS NOTE Patient - Kelli Lake Age - 48 y.o. - 1975 [id number] ASSESSMENT & PLAN 1. IBD (inflammatory bowel [...] hadbeen diagnosed with C difficile colitis at [facility] earlier this year, and had a [...] Exam Vitals reviewed. Exam conducted with a phone circuit operator present (Mother). Constitutional: General: She is not [...] 17 - 40 U/L Final Specific gravity [facility] 02/10/2024 1.025 1.003 - 1.035 Final Leukocyte esterase [facility] 02/10/2024 Negative Negative^Negative Final Nitrite [facility] 02/10/2024 Negative Negative^Negative Final Ph 02/10/2024 6.0 5.0 - 8.5 Final Protein [facility] 02/10/2024 30 (A) Negative^Negative mg/dL Final Urine glucose [facility] 02/10/2024 Negative Negative^Negative mg/dL Final Ketones [facility] 02/10/2024 80 (A) Negative^Negative mg/dL Final Urobilinogen [facility] 02/10/2024 0.2 <1.1 eu/dL Final Bilirubin [facility] 02/10/2024 Small (A) Negative^Negative Final Hemoglobin [facility] 02/10/2024 Negative Negative^Negative Final Nursing urine 02/10/2024 [...] and endoscopic correlation recommended. Geovanni Rivers DO., [facility] Office: [phone] documented in this encounterDetwiler Memorial Hospital07-16-2024 Nurse Note* Perioperative Nursing Note - Daily Balderas RN - 03/07/2024 12:08 PM EDT Preoperative Education Checklist- General Surgery date: 03/08/24 Surgery time: 10a Arrival time: 9a 1. Bring a photo ID and your insurance card with you the day of surgery. You will check in at the main lobby of the [facility]- registration desk is straight ahead as soon as you walk in. Tell them you are here for surgery. 2. If you have a Living Will/Durable Power of Vocational Education Teacher for Health Care that is not on [...] after you have bathed. 5. NO nail scottish/acrylic on at least one finger. If you are having a hand, wrist or foot surgery then all nail scottish and artificial/acrylic nails must be removed from [...] please call the Preadmission Testing office at [phone], Mon.-Fri. 7 a.m.-3 p.m. Leave a voicemail if needed. Pre-Surgery Instructions: Medication Instructions escitalopram (LEXAPRO) 5 mg tablet Stop taking 0 days prior to procedure dicyclomine (BENTYL) 20 mg tablet Stop taking 0 days prior to procedure hyoscyamine (LEVSIN) 0.125 mg SL tablet Stop taking 0 days prior to procedure peg 3350-sod sulf,kjtb-zvz-owt 178.7-7.3-0.5 gram recon soln Check with prescribing doctor for instructions polyethylene glycol (GOLYTELY) 236-22.74-6.74 -5.86 gram solution Check with prescribing doctor forinstructions PROMETHEGAN 12.5 mg suppository Stop taking 0 days prior to procedure [facility] [employer] [id number] Miscellaneous Notes* Perioperative Nursing Note - Daily Balderas RN - 03/07/2024 12:08 PM EDT Preoperative Education Checklist- General Surgery date: 03/08/24 Surgery time: 10a Arrival time: 9a 1. Bring a photo ID and your insurance card with you the day of surgery. You will check in at the main lobby of the [facility]- registration desk is straight ahead as soon as you walk in. Tell them you are here for surgery. 2. If you have a Living Will/Durable Power of Vocational Education Teacher for Health Care that is not on [...] after you have bathed. 5. NO nail scottish/acrylic on at least one finger. If you are having a hand, wrist or foot surgery then all nail scottish and artificial/acrylic nails must be removed from [...] please call the Preadmission Testing office at [phone], Mon.-Fri. 7 a.m.-3 p.m. Leave a voicemail if needed. Pre-Surgery Instructions: Medication Instructions escitalopram (LEXAPRO) 5 mg tablet Stop taking 0 days prior to procedure dicyclomine (BENTYL) 20 mg tablet Stop taking 0 days prior to procedure hyoscyamine (LEVSIN) 0.125 mg SL tablet Stop taking 0 days prior to procedure peg 3350-sod sulf,skrh-vej-gal 178.7-7.3-0.5 gram recon soln Check with prescribing doctor for instructions polyethylene glycol (GOLYTELY) 236-22.74-6.74 -5.86 gram solution Check with prescribing doctor forinstructions PROMETHEGAN 12.5 mg suppository Stop taking 0 days prior to procedure documented in this encounterDetwiler [facility] Hospital06-18-2024 History of Present illness Narrative* Geovanni [...] weeks ago when she was seen in [place] ED, diagnosed with colitis, and placed on antibiotics. Her symptoms never really went away, and she returned to the emergency department for evaluation. -at that time she was diagnosed with C difficile colitis, was placed on Flagyl and steroids and discharged home. She felt terrible with nausea vomiting and generalized weakness. -she returned to [place] ED, was admitted to the hospital for [...] Exam Vitals reviewed. Exam conducted with a phone circuit operator present (Mother). Constitutional: General: She is not [...] Testing No results found. Geovanni Rivers DO., [facility] Office: [phone] documented in this encounterDetwiler Memorial Hospital06-06-2024 History of Present illness Narrative* Cande Rand APRN-MAGNETIC PROSPECTING SUPERVISOR - 01/27/2024 2:40 PM EDT Subjective Patient ID: Kelli Lake is a 48 y.o. female. She was in the hospital for intractable vomiting The tubing assembler initially thought she had pancreatitis but eventially [...] MIRELLA Oconnell 01/27/24 1637 documented in this encounterDetwiler Memorial Hospital06-03-2024 Miscellaneous Notes* Telephone Encounter - Felisha Obrien CMA - 01/24/2024 12:03 PM EDT Pt called requesting a refill she knows they are from the hospital but wanted to know if you could refill them she has 1 left just in case and plans to talk to you about them at her visit at the end of the week documented in this encounterDetwiler Memorial Hospital06-03-2024 Telephone encounter Note* Telephone Encounter - Felisha Obrien CMA - 01/24/2024 12:03 PM EDT Pt called requesting a refill she knows they are from the hospital but wanted to know if you could refill them she has 1 left just in case and plans to talk to you about them at her visit at the end of the week [facility]05-17-2024 History of Present illness Narrative* MIRELLA [...] MIRELLA Oconnell 01/07/24 1126 documented in this encounterDetwiler Memorial Hospital03-20-2024 Evaluation note* Author Belinda [facility] Authored November 09, 2024 11: 57am [...] 1.[address] [facility] Work Phone: Evaluation note* Diagnosis Colitis due to Clostridioides difficile- Primary [facility] Diagnosis Colitis- Primary Other and unspecified noninfectious gastroenteritis and colitis Hypokalemia Hypopotassemia Reactive depression Screen for colon cancer Special screening for malignant neoplasms, colon documented in this encounter [facility]* Diagnosis Colitis- Primary Other and unspecified noninfectious gastroenteritis and colitis Hypotension, unspecified hypotension type documented in this encounter [facility]* Diagnosis IBD (inflammatory bowel disease)- Primary Other and unspecified noninfectious gastroenteritis and colitis Colitis due to Clostridioides difficile documented [facility] Diagnosis IBD (inflammatory bowel disease)- Primary Other and unspecified noninfectious gastroenteritis and colitis [facility]* Diagnosis 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[facility])- Primary IBD (inflammatory bowel disease) Other and unspecified noninfectious gastroenteritis and colitis Heartburn Nausea and vomiting, unspecified vomiting type Hyponatremia with extracellular fluid depletion Hyposmolality and/or hyponatremia documented in this encounter [facility]* Diagnosis IBD (inflammatory bowel disease) Other and unspecified noninfectious gastroenteritis and colitis Heartburn documented in this encounter [facility] Additional Instructions DISCHARGE INSTRUCTIONS [...] NOT operate machinery such as power tools, [employer] mowers, Introniswers, sewing machines, etc. for 24 hours. - [...] stomach, liquids high in sugar content (soda, Eed-Aid, non-acid juices) are recommended. - You can resume normal activities tomorrow. FOLLOW UP & RECOMMENDATIONS: -Notify the doctor if you have any problems. -Follow-up pathology -Office number [phone]. [facility] Work Phone: InstructionsNot on filedocumented in this encounter [facility] SystemInstructionsNot on filedocumented in this encounter [facility] System[facility]ructionsNot on filedocumented in this encounter [facility] SystemInstructionsNot on filedocumented in this encounter [facility] SystemInstructionsNot on filedocumented in this encounter [facility] SystemInstructionsNot on filedocumented in this encounter [facility] SystemInstructionsNot on filedocumented in this encounter [facility] SystemInstructionsNot on filedocumented in this encounter [facility] SystemInstructionsNot on filedocumented in this encounter [facility] Summary Purpose Family History No [...] colon cancer Procedures Colonoscopy Colonoscopy Cande Rand, EMBLEM FUSER TENDER-MAGNETIC PROSPECTING SUPERVISOR [address] [place] [address] Referral ID Status Reason Start Date Expiration Date V isits Requested Visits Authorized [id number] Pending Review 01/07/2024 01/06/2025 1 1 Chief Complaint and Reason for Visit Chief Complaint Admit Date Refer: ulcerative rectosigmoiditis November 09, 2024 11:05am Chief Complaint Admit Date Refer: ulcerative rectosigmoiditis November 09, 2024 11:05am November 21, 2024 8:08 am November 21, 2024 9:59 am Additional Source Comments INFORMATION SOURCE (unrecogn ized section and content) DATE CREATED AUTHOR 08/29/2019 [facility] DATE CREATED AUTHOR AUTHOR'S ORGANIZ ATION 01/10/2024 [facility] DATE CREATED AUTHOR AUTHOR'S ORGANIZ ATION 06/02/2024 [facility] DATE CREATED AUTHOR AUTHOR'S ORGANIZ ATION 08/11/2024 [facility] DATE CREATED AUTHOR AUTHOR'S ORGANIZ ATION 11/26/2024 [facility] y[facility] Reason for Visit (unrecogniz [...] Teams (unrecognized sec tion and content) Senior Manager Mmcoe Relationship Specialty Start Date End Date Geovanni Rivers DO [address] [place] [address] PCP - General Internal Medicine 01/27/24 Senior Manager Mmcoe Relationship Specialty Start Date End Date Cande Rand, [facility] [address] [place] [address] PCP - General Internal Medicine 06/28/23 Senior Manager [employer] Relationship Specialty Start Date End Date Cande Rand, [facility] [address] [place] [address] PCP - General Internal Medicine 06/28/23 Senior Manager Mmcoe Relationship Specialty Start Date End Date Cande Rand, [facility] [address] [place] [address] PCP - General Internal Medicine 06/28/23 Senior Manager Mmcoe Relationship Specialty Start Date End Date Geovanni Rivers DO [address] [place] [address] PCP - General Internal Medicine 01/27/24 Senior Manager [employer] Relationship Specialty Start Date End Date Geovanni Rivers DO [address] [place] [address] PCP - General Internal Medicine 01/27/24 Senior Manager Mmcoe Relationship Specialty Start Date End Date Geovanni Rivers DO [address] [facility] [address] PCP - General Internal Medicine 01/27/24 Senior Manager Mmcoe Relationship Specialty Start Date End Date Geovanni Rivers DO [address] [place] [address] PCP - General Internal Medicine 01/27/24 Senior Manager Mmcoe Relationship Specialty Start Date End Date Geovanni Rivers DO [address] [place] [address] PCP - General Internal Medicine 01/27/24 Senior Manager Mmcoe Relationship Specialty Start Date End Date Geovanni Rivers DO [address] [place] [address] PCP - General Internal Medicine 01/27/24 Senior Manager Mmcoe Relationship Specialty Start Date End Date Geovanni Rivers DO [address] [place] [address] PCP - General Internal Medicine 01/27/24 Team [...] BE BASED ON THE PRIMARY CLINICAL RECORDS. [facility] [employer] [facility]. provides no warranty or guarantee of the accuracy or completeness of information in this document.
--- NOTE | 2024-11-30 03:12 | ED_ITS ---
HPI - Abdominal Pain General Chief Complaint: Abdominal Pain Stated Complaint: ABDOMINAL PAIN Time Seen by Provider: 11/30/24 02:43 Source: patient Mode of arrival: walk-in Limitations: no limitations History of Present Illness HPI narrative: This 49-year-old female with a history of ulcerative colitis that was diagnosed a little over a year ago who sees Dr. Medina at [facility] and recently had a colonoscopy that showed inflammation in the rectosigmoid region and was admitted here for 3 days for abdominal pain and pancreatitis presents for evaluation of recurrent abdominal pain with nausea and vomiting. The patient states she was discharged home and was feeling better. She drank 2 glasses of fruit punch and had spaghetti O's for dinner. Afterwards she started feeling nauseated and had several episodes of vomiting since that time and has developed upper abdominal pain. She has not had any fever. She has not had any diarrhea. She is supposed to be on a steroid taper but was unable to take her last dose of steroids due to the nausea and vomiting. She states that she took a Percocet that she had at home and a Zofran but it did not help her nausea vomiting. She states that her ulcerative colitis flares consist of nausea and vomiting and pain. She does not typically have diarrhea or bloody diarrhea. The patient has a history of severe scoliosis with rods in her back. As a consequence of this she has a large barrel shaped chest. She denies any chest pain or shortness of breath at this time. She is denying any back pain as well. Related Data Home Medications ?Medication ?Instructions ?Recorded ?Confirmed mesalamine 400 mg capsule (with 400 mg PO BID 05/26/24 11/30/24 delayed release tablets inside) Previous Rx's ?Medication ?Instructions ?Recorded ondansetron 4 mg disintegrating 4 mg PO Q8H PRN nausea and 11/28/24 tablet vomiting 5 days #15 tabs prednisolone sodium phosphate 20 20 mg (5 mL) PO .as directed #237 11/28/24 mg/5 mL (4 mg/mL) oral solution mL promethazine 12.5 mg rectal 12.5 mg ME Q6H PRN nausea and 11/28/24 suppository vomiting #12 ea Allergies Allergy/AdvReac Type Severity Reaction Status Date / Time metronidazole (From Flagyl) AdvReac Intermediate Abdominal Verified 11/30/24 02:53 Pain Review of Systems ROS Status of ROS 10 or more systems reviewed and unremark able except as noted in history and below [facility] Medical History (Updated 11/30/24 @ 06:27 by Nelda Ware MD) Hyponatremia ?E87.1 - Hypo-osmolality and hyponatremia (ICD-10) Intractable abdominal pain ?R10.9 - Unspecified abdominal pain (ICD-10) Depression ?F32.A - Depression, unspecified (ICD-10) Colitis ?K52.9 - Noninfective gastroenteritis and colitis, unspecified (ICD-10) Acute proctitis ?K62.89 - Other specified diseases of anus and rectum (ICD-10) 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 of left artificial elbow joint (ICD-10) Scoliosis ?M41.9 - Scoliosis, unspecified (ICD-10) Surgical History Previous back surgery ?Z98.890 - Other specified postprocedural states (ICD-10) Family History Mother Family history of CHF (congestive heart failure) Family history of cancer Family history of hypertension Family history of myocardial infarction Family history of stroke Father Family history of cancer Social History Within the past year, how often did you have a drink containing alcohol: monthly or less Within the past year, how often did you have six or more drinks on one occasion: less than monthly Smoking status: Former smoker Second hand tobacco smoke exposure: No Non-prescribed substance use: cannabis (any form) Previous occupational history: Does not Work Known occupational exposures/hazards: No Highest level of school completed/degree received: high school graduate Do you want help with school or training: No Are you now , , , , never or living with a partner: never In a typical week, how many times do you talk on the telephone with family, f riends, or neighbors: 3 or more times per week How often do you get together with friends or relatives: 3 or more times per week How often do you attend pentecostalism or jainism services: never Do you belong to any clubs or organizations such as pentecostalism groups unions, fraternal or athletic groups, or school groups: no Total score: 1 Score interpretation: A score of less than or equal to 1 indicates the most soc ially isolated. Little interest or pleasure in doing things: not at all Feeling down, depressed, or hopeless: not at all Feel stressed/tense/nervous/anxious/difficulty sleeping: not at all Due to disability, difficulty making decisions: No Do you think of yourself as: straight/heterosexual Gender Identity: female Exam Narrative Exam Narrative: Vital signs and Nursing Notes reviewed: Patient is afebrile with a normal pulse, blood pressure is elevated 130/94, she is not hypoxic with pulse ox of 100% on room air General: Awake, alert, oriented, thin uncomfortable appearing female with dry heaves, no respiratory distress HEENT: Normocephalic atraumatic, mucous membranes are moist and pink, eyes are clear, normal conjunctiva, vision is grossly intact Neck: Supple, no meningeal signs, no anterior or posterior cervical lymphadenopathy Chest: Lungs are clear to auscultation with good air entry, there is no wheezing rhonchi or rales appreciated no accessory muscle use, patient is speaking in complete sentences-no chest wall tenderness to palpation CVS: Regular rate and rhythm S1-S2, no murmurs rubs or gallops, pulses are brisk and equal bilaterally ABD: Soft, nondistended, mild epigastric tenderness, no rebound guarding or rigidity, bowel sounds are minimally hypoactive, there is no tenderness in the right lower quadrant or right upper quadrant Extremities: No lower extremity tenderness or swelling noted. Patient has a large healed scar in her posterior thorax status post elbert placement for severe scoliosis. She has a large hump on the right side of her thoracic spine and the left side of her thoracic spine is flattened and somewhat indented Skin: Normal in appearance without rash,pallor, petechiae or purpura Neuro: No focal deficits Constitutional Vital Signs, click to edit/add: Last Vital Signs Temp 98.0 F 11/30/24 02:46 Pulse 85 11/30/24 02:46 Resp 16 11/30/24 02:46 BP 130/94 H 11/30/24 02:46 Pulse Ox 100 11/30/24 02:46 O2 Del Method Room Air 11/30/24 02:46 Course Vital Signs Vital signs: Vital Signs Temperature 98.0 F 11/30/24 02:46 Pulse Rate 85 11/30/24 02:46 Respiratory Rate 16 11/30/24 02:46 Blood Pressure 130/94 H 11/30/24 02:46 Pulse Oximetry 100 11/30/24 02:46 Oxygen Delivery Method Room Air 11/30/24 02:46 Temperature 98.0 F 11/30/24 02:46 Pulse Rate 85 11/30/24 02:46 Respiratory Rate 16 11/30/24 02:46 Blood Pressure 130/94 H 11/30/24 02:46 Pulse Oximetry 100 11/30/24 02:46 Oxygen Delivery Method Room Air 11/30/24 02:46 MDM - Abdominal Pain MDM Narrative Medical decision making narrative: This 49-year-old male with a history of ulcerative colitis who recently had a colonoscopy that showed a rectosigmoid area of inflammation and was placed on high-dose steroids by her home economics expert and then was seen here and admitted because she was unable to tolerate the steroids and was having abdominal pain and vomiting presents for reevaluation of generalized abdominal pain and vomiting after being discharged home 2 days ago. The patient states initially she felt well and fairly rapidly advance her diet. She drinks 2 glasses of fruit punch and had SpaghettiOs for dinner and then started to become nauseated and had generalized abdominal pain with vomiting. She has not had a fever. She is still taking the steroids but missed her nighttime dose. She does not have any fever. She does not have any chest pain. She has not had any diarrhea. Her abdomen was soft with mildly hypoactive bowel sounds. An IV was placed and she was medicated with IV fluids, Zofran and 4 mg of morphine. On reevaluation she stated she was feeling better. Routine labs are reviewed. She has an elevated white count at 22, likely related to her steroid use. Her hemoglobin is stable at 13.3. Her lipase is mildly elevated to 15 but this is much improved from her most recent lipase that was greater than 500 prior to her admission. Electrolytes are normal with mildly low sodium at 128 which is not unusual for her. Liver function test and lactic acid are normal. Due to her history, recent admission and elevated white count a repeat CT scan with IV contrast was ordered. The impression is no abscess, no hematoma, no bowel or renal obstruction, mild fatty infiltration of the liver. Mild stranding in the lower posterior pelvis possibly related to underlying mild distal colitis from infectious or inflammatory etiology. There was no pneumatosis or free air noted. The results of her labs and CT scan were discussed with her. She had some recurrent nausea while in the emergency department and was remedicated with Zofran. She then requested to drink clear liquids and was given some ice water. I feel she will be stable to be discharged home. I will provide her with a prescription for Phenergan to use as needed for refractory vomiting that is not relieved with Zofran and a short course of pain medication to use as needed for recurrent pain. I explained to her that I think she may have advanced her diet too quickly drinking fruit punch and eating SpaghettiOs after being hospitalized for a gastro intestinal illness. Lab Data Labs: Lab Results 11/30/24 Range/Units 03:15 WBC 22.0 H (4.0-11.0) 10^3/uL RBC 5.19 (4.20-5.40) 10^6/uL Hgb 13.3 (12.0-16.0) g/dL Hct 40.3 (36.0-48.0) % MCV 77.6 L (81.0-99.0) fL MCH 25.6 L (26.7-34.0) pg MCHC 33.0 (29.9-35.2) g/dL RDW 14.5 (11.0-15.0) % Plt Count 407 (150-450) 10^3/uL MPV 9.8 (9.5-13.5) fL Neut % (Auto) 86.4 H (43.0-75.0) % Lymph % (Auto) 7.2 L (20.5-60.0) % [place] % (Auto) 5.6 (1.7-12.0) % Eos % (Auto) 0.3 L (0.9-7.0) % Baso % (Auto) 0.1 L (0.2-2.0) % Neut # (Auto) 19.0 H (1.4-6.5) 10^3/uL Lymph # (Auto) 1.6 (1.2-3.8) 10^3/uL [place] # (Auto) 1.2 H (0.3-0.8) 10^3/uL Eos # (Auto) 0.1 (0.0-0.7) 10^3/uL Baso # (Auto) 0.0 (0.0-0.1) 10^3/uL Abs Immat Gran (auto) 0.09 H (0.00-0.03) 10^3/uL Imm/Tot Granulo (auto) 0.4 (0.0-0.5) % Sodium 128 L (136-145) mmol/L Potassium 3.9 (3.5-5.1) mmol/L Chloride 92 L (98-107) mmol/L Carbon Dioxide 27.6 (21.0-32.0) mmol/L Anion Gap 12.3 BUN 35.0 H (7.0-18.0) mg/dL Creatinine 1.02 (0.55-1.02) mg/dL Est GFR ( Amer) >60 (>=60 mL/min/1.73m^2) Est GFR (Non-Af Amer) 58 L (>=60 mL/min/1.73m^2) BUN/Creatinine Ratio 34.3 Glucose 134 H (74-106) mg/dL Lactate 1.3 (0.4-2.0) mmol/L Calcium 8.9 (8.5-10.1) mg/dL Total Bilirubin 0.9 (0.2-1.0) mg/dL AST 13 L (15-37) U/L ALT 14 (14-59) U/L Alkaline Phosphatase 58 (46-116) U/L Total Protein 7.7 (6.4-8.2) g/dL Albumin 3.8 (3.4-5.0) g/dL Globulin 3.9 g/dL Albumin/Globulin Ratio 1.0 Lipase 215.0 H (16.0-77.0) U/L Discharge Plan Discharge Chief Complaint: Abdominal Pain Clinical Impression: Ulcerative colitis, chronic, Abdominal pain Nausea & vomiting Qualifiers: Vomiting type: unspecified Qualified Code(s): R11.2 - Nausea with vomiting, unspecified Prescriptions / Home Meds: No Action mesalamine 400 mg capsule (with del rel tablets) 400 mg PO BID ondansetron 4 mg tablet,disintegrating 4 mg PO Q8H PRN (Reason: nausea and vomiting) 5 Days Qty: 15 0RF promethazine 12.5 mg suppository 12.5 mg ME Q6H PRN (Reason: nausea and vomiting) Qty: 12 0RF Rx Instructions: 3 doses during day; last dose no later than 4 hr before bedtime prednisolone sodium phosphate 20 mg/5 mL (4 mg/mL) solution 20 mg PO .as directed Qty: 237 0RF Rx Instructions: take 20mg PO TID x 5 days, then 20mg PO BID x 5 days, Then 20mg PO daily x 5 days, then stop Print Language: Croatian Referrals: GEOVANNI [place] [Primary Care Provider] - 1 week
[2024-11-30] MEDS: MORPHINE SULFATE 4 MG/ML VIAL IV (03:21)
[2024-11-30] MEDS: ONDANSETRON PF 4 MG/2 ML VIAL IV ×2 (03:21→06:33)
[2024-11-30] MEDS: 0.9 % SODIUM CHLORIDE 1,000 ML 1000 ML IV (03:21)
[2024-11-30 03:32] LABS: Basophils Percent Auto 0.1 % (0.2-2.0); Eosinophils Absolute Auto 0.1 10^3/uL (0.0-0.7); Eosinophils Percent Auto 0.3 % (0.9-7.0); Hematocrit 40.3 % (36.0-48.0); Hemoglobin 13.3 g/dL (12.0-16.0); Immature Granulocytes Abs Auto 0.09 10^3/uL (0.00-0.03); Immature Granulocytes Pct Auto 0.4 % (0.0-0.5); Lymphocytes Absolute Auto 1.6 10^3/uL (1.2-3.8); Lymphocytes Percent Auto 7.2 % (20.5-60.0); Mean Corpuscular Hemoglobin 25.6 pg (26.7-34.0); Mean Corpuscular Volume 77.6 fL (81.0-99.0); Mean Platelet Volume 9.8 fL (9.5-13.5); Monocytes Absolute Auto 1.2 10^3/uL (0.3-0.8); Monocytes Percent Auto 5.6 % (1.7-12.0); Neutrophils Percent Auto 86.4 % (43.0-75.0); Platelet Count 407 10^3/uL (150-450); Red Blood Count 5.19 10^6/uL (4.20-5.40); Red Cell Distribution Width 14.5 % (11.0-15.0)
[2024-11-30 03:40] LABS: Alanine Aminotransferase 14 U/L (14-59); Albumin Level 3.8 g/dL (3.4-5.0); Alkaline Phosphatase 58 U/L (46-116); Anion Gap 12.3; Aspartate Amino Transferase 13 U/L (15-37); BUN Creatinine Ratio 34.3; Bilirubin Total 0.9 mg/dL (0.2-1.0); Calcium 8.9 mg/dL (8.5-10.1); Carbon Dioxide 27.6 mmol/L (21.0-32.0); Chloride 92 mmol/L (98-107); Estimated GFR (African America >60 (>=60 mL/min/1.73m^2); Estimated GFR (Non-African Ame 58 (>=60 mL/min/1.73m^2); Globulin 3.9 g/dL; Glucose 134 mg/dL (74-106); Potassium 3.9 mmol/L (3.5-5.1); Sodium 128 mmol/L (136-145); Total Protein 7.7 g/dL (6.4-8.2)
[2024-11-30 03:42] LABS: Lactate/Lactic Acid 1.3 mmol/L (0.4-2.0)
[2024-11-30] MEDS: 0.9 % SODIUM CHLORIDE 1,000 ML 125 ML IV (06:10)
[2024-11-30] MEDS: 0.9 % SODIUM CHLORIDE 1,000 ML 500 ML IV (06:30)
[2024-11-30 06:59] VITALS: BP 146/101; PULSE 73; O2SAT 100
[2024-11-30 09:17] VITALS: PULSE 87; O2SAT 100
== END 2024-11-30 09:19 | disposition home or self-care (01) ==
PROVIDERS: Emergency Provider Emergency Medicine; PCP Internal Medicine
DX: K51.90 Ulcerative colitis, unspecified, without complications (principal); R10.9 Unspecified abdominal pain; R11.2 Nausea with vomiting, unspecified; Z87.891 Personal history of nicotine dependence; G89.29 Other chronic pain
CPT/HCPCS: 36415; 74177; 80053; 83605; 83690; 85025; 96361; 96374; 96375; 96376; 99285; J2270; J2405; Q9967

== ENCOUNTER 2025-07-31 13:27 | Outpatient (OUT) | payer OTHER, SELFPAY ==
--- OUTSIDE RECORDS SUMMARY | 2025-07-31 13:34 | XMS_ITS | CCD ---
Author Organization [facility] [place] [facility]iniSyn[facility] Care Team Providers Care Plant Operations Manager Name Role Phone PANCHITO JUAREZ Admitting Unavailable PANCHITO JUAREZ Attending Unavailable LEONEL AVALOS Primary Care Unavailable PANCHITO JUAREZ Consulting Unavailable CLARK THOMAS Consulting Unavailable KAYLIN WEBSTER Consulting Unavailable CANDE RAND Referring Unavailable ANN, CANDE Reyes Primary Care Unavailable CANDE RAND Attending Unavailable CANDE RAND Referring Unavailable ANN, CANDE ESPINAL Primary Care Unavailable CANDE RAND Attending Unavailable ANN, CANDE ESPINLA Referring Unavailable ANN, CANDE ESPINAL Primary Care Unavailable GEOVANNI [place] Attending Unavailable YUHAGEOVANNI Spivey Referring Unavailable YUHAS, GEOVANNI Machado Primary Care Unavailable YUHAS, GEOVANNI Machado Attending Unavailable YUHASGEOVANNI Referring Unavailable YUHAS, GEOVANNI Machado Primary Care Unavailable YUHAS, GEOVANNI Machado Attending Unavailable YUHASGEOVANNI Referring Unavailable YUHAS, GEOVANNI Machado Primary Care Unavailable YUHAS, GEOVANNI Machado Attending Unavailable YUHASGEOVANNI Referring Unavailable YUHAS, GEOVANNI Machado Primary Care Unavailable YUHAS, GEOVANNI Machado Attending Unavailable YUHAS, GEOVANNI Machado Referring Unavailable YUHAS, GEOVANNI Machado Primary Care Unavailable YUHASGEOVANNI Attending Unavailable YUHASGEOVANNI Referring Unavailable YUHAS, GEOVANNI Machado Primary Care Unavailable Yuhas Geovanni ESTEVEZ Primary Care Provider [phone] Saeids MICROFILM CLERK-Cande ALMIEDA Primary Care Provider Belinda Medina MD Attending Provider [phone] Geovanni Nj DO Primary Care Provider Belinda Medina Attending Unavailable Belidna Medina Admitting Unavailable Geovanni Nj Primary Care Unavailable GEOVANNI NJ Primary Care Unavailable KAVITA PEÑA Attending Unavailable GEOVANNI NJ Primary Care Unavailable JACKELYN WESTON Attending Unavailable GEOVANNI NJ Admitting Unavailable GEOVANNI NJ Attending Unavailable GEOVANNI NJ Primary Care Unavailable GEOVANNI NJ Referring Unavailable GEOVANNI NJ Primary Care Unavailable GEOVANNI NJ Primary Care Unavailable CLIVE RAHMAN Attending Unavailable Geovanni Nj DO Primary Care Provider [phone] Allergies Allergy ClassificationReported Allergen(s)Allergy TypeDate of OnsetReaction(s) Facility (17 sources)metroNIDAZOLE; Translations: [METRONIDAZOLE]Drug Pmuwokb65-25-2526 Abdominal PainProMedica Repository Medications Current Medications MedicationDrug Class(es)DatesSig (Normalized)Sig (Original)adalimumab (1 source)Tumor Necrosis Factor BlockerStart: 42-39-2754Vqtlvc Active SUBCUT January 22, 2025 12:00amdicyclomine hydrochloride 20 mg oral tablet (4 sources)AnticholinergicStart: 05-31-2024 End: 74-28-8031oovefiaahzf (BENTYL) 20 mg tablet Have it,but has not taken it. 05/31/2024 ActiveStart: 02-10-2024 End: 38-15-5497xhnc 1 tablet by mouth in the morning, then take 1 tablet by mouth at bedtimedicyclomine (BENTYL) 20 mg tablet Take 1 tablet (20 mg total) by mouth in the morning and 1 tablet (20 mg total) before bedtime. 20 tablet 02/10/2024 03/08/2024 Discontinued (Stop Taking at Discharge)famotidine 40 mg oral tablet (5 sources)Histamine-2 Receptor AntagonistStart: 05-31-2024 End: 69-09-0924cxeq 1 tablet by mouth once dailyfamotidine (PEPCID) 40 mg tablet Indications: Heartburn Take 1 tablet (40 mg total) by mouth nightly. 90 tablet 1 06/27/2024 Activeondansetron 4 mg disintegrating oral tablet (6 sources)Serotonin-3 Receptor AntagonistStart: 70-00-5084wwqv 1 tablet by mouth every eight hours as neededondansetron ODT (ZOFRAN ODT) 4 mg disintegrating tablet Dissolve 1 tablet (4 mg total) on tongue every 8 (eight) hours as needed. 11/28/2024 ActiveStart: 11-59-6291erxmpsbawin ODT (ZOFRAN ODT) 4 mg disintegrating tablet DISSOLVE 1 (ONE) TABLET ON THE TONGUE EVERY6 HOURS NEEDED FOR NAUSEA AND VOMITING 12/27/2023 Activepromethazine hydrochloride 25 mg oral tablet (6 sources)PhenothiazineStart: 05-31-2024 End: 65-45-2743agbi 1 tablet by mouth every eight hours as needed for nausea and vomitingpromethazine (PHENERGAN) 25 mg tablet Take 1 tablet (25 mg total) by mouth every 8 (eight) hours asneeded for nausea or vomiting for up to 5 days. 15 tablet 05/31/2024 06/05/2024 ActiveStart: 05-09-2024 End: 11-81-2813cepzfiekdhro (PHENERGAN) 12.5 mg suppository Indications: 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[facility]) Insert 1 suppository (12.5 mg total) into the rectum every 6 (six) hours as neededfor nausea or vomiting. 12 each 05/09/2024 06/27/2024 Discontinued (Therapy completed)Start: 02-11-2024 End: 24-27-2513xtia 12.5 mg rectal route every six hours as neededPROMETHEGAN 12.5 mg suppository Insert 1 suppository (12.5 mg total) into the rectum every 6 (six) hours as needed. 02/11/2024 03/16/2024 Discontinued (Therapy completed) Completed/Discontinued Medications MedicationDrug Class(es)DatesSig (Normalized)Sig (Original)acetaminophen 325 mg / HYDROcodone bitartrate 5 mg oral tablet (2 sources)Opioid AgonistStart: 01-19-2024 End: 64-96-7703rxmj 1 tablet by mouth every six hours as needed for pain HYDROcodone-acetaminophen (NORCO) 5-325 mg per tablet TAKE 1 TABLET BY MOUTH EVERY 6 HOURS NEEDED FOR PAIN 01/19/2024 02/08/2024 Discontinued (Therapy completed)acetaminophen 325 mg / oxyCODONE hydrochloride 5 mg oral tablet (1 source)Opioid AgonistStart: 05-26-2024 End: 40-30-1702dmue 1 tablet by mouth every six hours as needed for pain oxyCODONE-acetaminophen (PERCOCET) 5-325 mg per tablet TAKE 1 TABLET BY MOUTH EVERY 6 HOURS NEEDED FOR PAIN FOR 3 DAYS 05/26/2024 05/31/2024 Discontinued (Therapy completed)escitalopram 5 mg oral tablet (18 sources)Serotonin Reuptake InhibitorStart: 06-28-2023 End: 19-86-1176kzhg 1 tablet by mouth once dailyEscitalopram Oxalate 5 mg tablet Discontinued 5 MG PO Daily October 18, 2023 1:00am November 10, 2024 1:22pm hyoscyamine sulfate 0.125 mg sublingual tablet (7 sources)Start: 12-25-2023 End: 26-70-6774xgis 1 tablet by mouth every eight hours as neededhyoscyamine (LEVSIN) 0.125 mg SL tablet Take 1 tablet (125 mcg total) by mouth every 8 (eight) hours as needed for cramping. 30 tablet 1 01/24/2024 03/08/2024 Discontinued (Stop Taking at Discharge)mesalamine 400 mg delayed release oral tablet (13 sources)AminosalicylateStart: 11-09-2024 End: 92-08-0125hrbe 3 tablets by mouth twice dailyMesalamine 400 mg capsule (with del rel tablets) Discontinued 1200 MG PO Twice daily November 09, 2024 12:00am January 22, 2025 8:35amStart: 71-07-4214qpuu 1 capsule by mouth in the morning, then take 1 capsule by mouth at mealtimemesalamine (DELZICOL) 400 mg capsule (with del rel tablets) DR capsule Indications: Ulcerative recto sigmoiditis without complication (CMS-HCC) Take 1 capsule (400 mg total) by mouth in the morning and 1 capsule (400 mg total) in the evening. Take with meals. 180 capsule 1 08/08/2024 ActiveStart: 04-25-2024 End: 23-01-8492tpfx 1 capsule by mouth in the morning, then take 1 capsule by mouth at mealtimemesalamine (DELZICOL) 400 mg capsule (with del rel tablets) DR capsule Indications: IBD (inflammatory bowel disease) Take 1 capsule (400 mg total) by mouth in the morning and 1 capsule (400 mg total)in the evening. Take with meals. 60 capsule 1 06/27/2024 ActiveStart: 83-52-6501xkfk 1 tablet by mouth once daily at breakfastmesalamine (LIALDA) 1.2 gram EC tablet Indications: IBD (inflammatory bowel disease) Take 1 tablet (1.2 g total) by mouth daily with breakfast. 30 tablet 1 04/19/2024 ActivemetroNIDAZOLE 500 mg oral tablet (4 sources)Nitroimidazole AntimicrobialStart: 12-25-2023 End: 06-02-0205yzbg 1 tablet by mouth every eight hoursmetroNIDAZOLE (FLAGYL) 500 mg tablet TAKE 1 TABLET BY MOUTH EVERY 8 HOURS FOR 7 DAYS 12/25/2023 0601/2024 Discontinued (Therapy completed)peg 3350-sod sulf,fnvk-bjr-ojc 178.7-7.3-0.5 gram recon soln (1 source)Start: 02-27-2024 End: 28-40-8907fgv 3350-sod sulf,yuao-xhm-fjy 178.7-7.3-0.5 gram recon soln Indications: Colitis due to Clostridioides difficile Take one container twice as directed by scheduled instructions 2 each 02/27/2024 03/08/2024 Discontinued penicillin v potassium 250 mg oral tablet (3 sources)Start: 10-18-2023 End: 10-44-5362Fsiglkambl V Potassium 250 mg tablet Discontinued 500 MG PO Every 6 hours 40 7 October 18, 2023 1:00am November 09, 2024 11:57ampolyethylene glycol 3350 083894 mg / potassium chloride 2970 mg / sodium bicarbonate 6740 mg / sodium chloride 5860 mg / sodium sulfate 86233 mg powder for oral solution (1 source)Osmotic LaxativeStart: 03-06-2024 End: 99-68-1324bsmebhimhsrc glycol (GOLYTELY) 236-22.74-6.74 -5.86 gram solution Indications: Screen for colon cancer Take 240 mL by mouth every 1 (one) hour. 4000 mL 03/06/2024 03/08/2024 DiscontinuedpredniSONE 20 mg oral tablet (4 sources)Start: 11-30-2024 End: 76-38-3204qacx 2 tablets by mouth once dailyPrednisone 20 mg tablet Discontinued 40 MG PO Daily November 30, 2024 12:00am January 22, 2025 8:35am Start: 11-23-2024 End: 25-34-0917Gscpxvuart 5 mg tablet Discontinued 0 PO As Directed 252 November 23, 2024 12:00am January 22, 2025 8:35am 40 mg for 7 days, then 35 mg for 7 days, then 30 mg for 7 days, then 25 mg for 7 days, then 20 mg for 7 days, then 15 mg for 7 days, then 10 mg for 7 days, then 5 mg for 7 days orally as directe d; see taper instructionsStart: 01-13-2024 End: 59-86-2894owav 4 tablets by mouth once daily, then take 3 tablets by mouth once daily, then take 2 tablets bymouth once daily, then take 1 tablet by mouth once daily, then take 0.5 tablet by mouth once dailypredniSONE (DELTASONE) 10 mg tablet TAKE 4 TABLETS BY MOUTH DAILY FOR 3 DAYS, then TAKE 3 TABLETS BY MOUTH DAILY FOR 3 DAYS, then TAKE 2 TABLETS BY MOUTH DAILY FOR 3 DAYS, then TAKE 1 TABLET BY MOUTHDAILY FOR 3 DAYS, then TAKE 1/2 (ONE-HALF) OF A TABLET BY MOUTH DAILY FOR 4 DAYS 01/13/2024 02/08/2024 Discontinued (Therapy completed) sulfaSALAzine 500 mg oral tablet (2 sources)AminosalicylateStart: 03-16-2024 End: 99-82-7374rfncyLUEQtdsf (AZULFIDINE) 500 mg tablet Indications: IBD (inflammatory bowel disease) Take 1 tablet (500 mg total) by mouth in the morning and 1 tablet (500 mg total) at noon and 1 tablet (500 mg total) in the evening and 1 tablet (500 mg total) before bedtime. 120 tablet 2 03/16/2024 04/19/2024 Discontinued (Side effects)vancomycin 125 mg oral capsule (2 sources)Glycopeptide AntibacterialStart: 01-13-2024 End: 56-32-0973pdxmmfecya (VANCOCIN) 125 mg capsule Take 1 capsule (125 mg total) by mouth in the morning and 1 capsule (125 mg total) at noon and 1 capsule (125 mg total) in the evening and 1 capsule (125 mg total) before bedtime. 01/13/2024 02/08/2024 Discontinued (Therapy completed) Problems Active Problems Problem ClassificationProblemDateDocumented DateEpisodic/ChronicAbdominal pain (2 sources)Unspecified abdominal pain; Translations: [Abdominal pain]Onset: 30-20-8580GofrreicCxeqsxb obstructive pulmonary disease and bronchiectasis (1 source)Bronchitis, not specified as acute or chronic; Translations: [BRONCHITIS NOT SPEC ACUTE/CHRON]Onset: 48-86-9203UvqehmgbJopec of unknown origin (1 source)Fever, unspecified; Translations: [FEVER UNSPECIFIED]Onset: 08-29-2019 EpisodicMood disorders (17 sources)Major depressive disorder, single episode, unspecified; Translations: [Reactive depression (situational)]Onset: 022304-27-3793 ChronicOther acquired deformities (1 source)Scoliosis, unspecified; Translations: [SCOLIOSIS UNSPECIFIED]Onset: 77-54-4716QlptnsvBgqsa gastrointestinal disorders (1 source)Heartburn; Translations: [Heartburn]Onset: 23-92-9007CbfschopVhvxk lower respiratory disease (4 sources)Cough; Translations: [COUGH]Onset: 94-73-9949BoughydbKxevg nervous system disorders (1 source)Other chronic pain; Translations: [Other chronic pain]Onset: 23-15-9582EmivkycFwgzm upper respiratory infections (1 source)Chronic sinusitis, unspecified; Translations: [CHRONIC SINUSITIS UNSPECIFIED]Onset: 41-95-4488BjfedfhYnbfzrrs enteritis and ulcerative colitis (7 sources)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; Translations: [Proctosigmoiditis]Onset: 289454-52-3562MbjfxfyTycvbedwa and history of mental health and substance abuse codes (1 source)Personal history of nicotine dependence; Translations: [PERSONAL HISTORY OF NICOTINE DEPEND]Onset: 48-52-1437JidevoucPqowwjs and intentional self-inflicted injury (1 source)Suicidal ideations; Translations: [Suicidal ideations]Onset: 33-09-1234HxuoddkjQidsumvbreno (2 sources)GI ProblemOnset: 32-34-3163Ickvpbqupzhe (1 source)Hospital Follow-upOnset: 00-50-1390Crabbsuuvucp (1 source)EMSOnset: 12-01-2024 Past or Other Problems Problem ClassificationProblemDateDocumented DateEpisodic/ChronicFluid and electrolyte disorders (5 sources)Hypokalemia; Translations: [Hypokalemia]Onset: 476411-01-6152 EpisodicIntestinal infection (13 sources)Clostridium difficile colitis; Translations: [Enterocolitis due to Clostridium difficile, not specified as recurrent]Onset: 273688-56-1372 EpisodicMood disorders (15 sources)Mood disordersOnset: 01-27-2024 Resolved: 500883-06-1708Ufdtrb and vomiting (3 sources)Nausea and vomiting; Translations: [Nausea with vomiting, unspecified]Onset: 676256-76-5089VogibknrYqoisijxushbf gastroenteritis (9 sources)Colitis; Translations: [Noninfective gastroenteritis and colitis, unspecified]Onset: 391847-69-3917TonuznrgEmnqq circulatory disease (1 source)Hypotension, unspecified; Translations: [Hypotension, unspecified] Onset: 73-10-5298XvtbafbxWdmgv circulatory disease (1 source)Low blood pressure; Translations: [Hypotension, unspecified]02-08-2024 EpisodicOther gastrointestinal disorders (2 sources)Heartburn; Translations: [Heartburn]75-17-6054XdtdufdrOfsyx screening for suspected conditions (not mental disorders or infectious disease) (2 sources)Encounter for screening for malignant neoplasm of colon; Translations: [Patient encounter status]Onset: 907642-72-2386Myfavdow Results Test NameValueInterpretationReference RangeFacilityCBC AND AUTO DIFFon 85-37-3367IIVSOOMA BASOPHIL0.0 X10E9/LNormal0.0-0.2P[facility] Comment on above:Performed By: #### 3040-3, CMP, CBCA, 20478-8 #### [facility] ([id number]) [address] [place] [address] 89429CSIMLCSO BMMTYONHLS87.2 X10E9/LHigh1.5-6.6ProMetropolitan Methodist HospitalComment on above:Performed By: #### 3040-3, CMP, CBCA, 01623-4 #### [facility] ([id number]) [address] [place] [address] 03957Qyscptrlz/100 WBC (Bld)0.1 %[facility] Comment on above:Performed By: #### 3040-3, CMP, CBCA, 68380-4 #### [facility] ([id number]) [address] [place] [address] 24213Vwqjwrccrpv (Bld) [#/Vol]0.0 10*3/uLNormal0.0-0.4Pro[facility]acon[facility] HospitalComment on above:Performed By: #### 3040-3, CMP, CBCA, 21778-2 #### [facility] ([id number]) [address] [place] [address] 98629Mnzcqcrfjzw/100 WBC (Bld)0.1 %[facility] Comment on above:Performed By: #### 3040-3, CMP, CBCA, 78402-6 #### [facility] ([id number]) [address] [place] [address] 88624Zvxirowxndk distribution width (RBC) [Ratio]16.0 %High11.5-15.0 [facility] HospitalComment on above:Performed By: #### 3040-3, CMP, CBCA, 35112-5 #### [facility] ([id number]) [address] [place] [address] 01602Ivckojksti (Bld) [Volume fraction]42.7 %Ynxonj55-08GruLxcrffProtestant Deaconess HospitalComment on above:Performed By: #### 3040-3, CMP, CBCA, 96083-8 #### [facility] ([id number]) [address] [place] [address] 10251Qqzbktxkpl (Bld) [Mass/Vol]14.3 g/tHExanlz87.7-15.5PUniversity Hospitals Geneva Medical CenterComment on above:Performed By: #### 3040-3, CMP, CBCA, 27471-2 #### [facility] ([id number]) [address] [place] [address] 99407Nprqkfyunvi (Bld) [#/Vol]1.7 10*3/uLNormal1.0-3.5PUniversity Hospitals Geneva Medical CenterComment on above:Performed By: #### 3040-3, CMP, CBCA, 22723-1 #### [facility] ([id number]) [address] [place] [address] 35676Ihwurhumjnw/100 WBC (Bld)12.4 %NormalProtestant Deaconess Hospital Comment on above:Performed By: #### 3040-3, CMP, CBCA, 09812-9 #### [facility] ([id number]) [address] [place] [address] 65322ZVY (RBC) [Entitic mass]26.3 efQar85-60VbuIgvzexProtestant Deaconess HospitalComment on above:Performed By: #### 3040-3, CMP, CBCA, 54956-8 #### [facility] ([id number]) [address] [place] [address] 75052QPSD (RBC) [Mass/Vol]33.5 g/gXGuygwa32-49WpzZdjfaxProtestant Deaconess HospitalComment on above:Performed By: #### 3040-3, CMP, CBCA, 20532-0 #### [facility] ([id number]) [address] [place] [address] 85769ECU (RBC) [Entitic vol]79 dLZhd00-266EqzXcufayProtestant Deaconess Hospital Comment on above:Performed By: #### 3040-3, CMP, CBCA, 09719-0 #### [facility] ([id number]) [address] [place] [address] 45536Emlrgsgdl (Bld) [#/Vol]0.9 10*3/uLNormal0-0.9Pro[facility]acon[facility] HospitalComment on above:Performed By: #### 3040-3, CMP, CBCA, 34710-0 #### [facility] ([id number]) [address] [place] [address] 63060Xwznlddpj/100 WBC (Bld)6.3 %[facility] Comment on above:Performed By: #### 3040-3, CMP, CBCA, 15436-4 #### [facility] ([id number]) [address] [place] [address] 57478Zhtilstgkrz/100 WBC (Bld)81.1 %[facility] Comment on above:Performed By: #### 3040-3, CMP, CBCA, 91497-5 #### [facility] ([id number]) [address] [place] [address] 17332Pxdovxti mean volume (Bld) [Entitic vol]7.9 fLNormal7-12 [facility] HospitalComment on above:Performed By: #### 3040-3, CMP, CBCA, 26182-7 #### [facility] ([id number]) [address] [place] [address] 58012Clvecxjti (Bld) [#/Vol]431 10*3/pAGgzcco295-237AtnIjkgbbProtestant Deaconess HospitalComment on above:Performed By: #### 3040-3, CMP, CBCA, 32648-6 #### [facility] ([id number]) [address] [place] [address] 50789AZJ COUNT5.43 X10E12/LHigh3.80-5.20[facility] Comment on above:Performed By: #### 3040-3, CMP, CBCA, 03749-3 #### [facility] ([id number]) [address] [place] [address] 62138LKL (Bld) [#/Vol]13.8 10*3/uLHigh4.0-11.0Pro[facility]acon[facility] HospitalComment on above:Performed By: #### 3040-3, CMP, CBCA, 45644-8 #### [facility] ([id number]) [address] [place] [address] 25389CNWBWRVLZEUNO METABOLIC PANELon 10-91-6867Cpbsbud [Mass/Vol]4.7 g/dLNormal3.2-5.3PUniversity Hospitals Geneva Medical CenterComment on above:Performed By: #### 3040-3, CMP, CBCA, 11715-0 #### [facility] ([id number]) [address] [place] [address] 11850HPL [Catalytic activity/Vol]60 U/JGghqmz75-056TkdDptnheProtestant Deaconess HospitalComment on above:Performed By: #### 3040-3, CMP, CBCA, 22446-6 #### [facility] ([id number]) [address] [place] [address] 89692PDG [Catalytic activity/Vol]17 U/LNormal0-31PUniversity Hospitals Geneva Medical CenterComment on above:Performed By: #### 3040-3, CMP, CBCA, 93944-5 #### [facility] ([id number]) [address] [place] [address] 91153Nakfm gap [Moles/Vol]12 mmol/LNormal5-15ProMetropolitan Methodist HospitalComment on above:Performed By: #### 3040-3, CMP, CBCA, 14377-3 #### [facility] ([id number]) [address] [place] [address] 28582FFM [Catalytic activity/Vol]23 U/LNormal0-41ProMetropolitan Methodist HospitalComment on above:Performed By: #### 3040-3, CMP, CBCA, 38133-1 #### [facility] ([id number]) [address] [place] [address] 01237Pvdejkqry [Mass/Vol]1.4 mg/dLHigh0.3-1.2PUniversity Hospitals Geneva Medical CenterComment on above:Performed By: #### 3040-3, CMP, CBCA, 70393-1 #### [facility] ([id number]) [address] [place] [address] 71606Xvepofe [Mass/Vol]9.2 mg/dLNormal8.5-10.5PUniversity Hospitals Geneva Medical CenterComment on above:Performed By: #### 3040-3, CMP, CBCA, 09186-7 #### [facility] ([id number]) [address] [place] [address] 99446Lccjnngz [Moles/Vol]90 mmol/HPci12-399NczBtmmsdMetropolitan Methodist HospitalComment on above:Performed By: #### 3040-3, CMP, CBCA, 12762-9 #### [facility] ([id number]) [address] [place] [address] 62730AA5 [Moles/Vol]26 mmol/FGadvtr22-62QtqDupyafUniversity Hospitals [facility] Center Comment on above:Performed By: #### 3040-3, CMP, CBCA, 61968-9 #### [facility] ([id number]) [address] [place] [address] 64048Hmjqboucdt [Mass/Vol]0.84 mg/dLNormal0.40-1.00ProMetropolitan Methodist HospitalComment on above:Result Comment: METHOD TRACEABLE TO IDMS STANDARD Performed By: #### 3040-3, CMP, CBCA, 44345-9 #### [facility] ([id number]) [address] [place] [address] 35991RJC/1.73 sq M.predicted among non-blacks MDRD (S/P/Bld) [Vol rate/Area]86 mL/min/{1.73_m2}Normal>59ProMetropolitan Methodist HospitalComment on above:Result Comment: Reported eGFR is based on the CKD-EPI 2020 equation that does not use a race coefficient.Performed By: #### 3040-3, CMP, CBCA, 50846-4 #### [facility] ([id number]) [address] [place] [address], [place] [address]Wtosnqh [Mass/Vol]102 mg/yZJins50-76KtjBchwioProtestant Deaconess Hospital Comment on above:Performed By: #### 3040-3, CMP, CBCA, 83602-7 #### [facility] ([id number]) [address] [place] [address], [place] [address]Bltpicrze [Moles/Vol]3.1 mmol/LLow3.5-5.0ProMetropolitan Methodist HospitalComment on above:Performed By: #### 3040-3, CMP, CBCA, 49062-3 #### [facility] ([id number]) [address] [place] [address] 79711Ofulyil [Mass/Vol]8.9 g/dLHigh6.0-8.0[facility] Comment on above:Performed By: #### 3040-3, CMP, CBCA, 76498-3 #### [facility] ([id number]) [address] [place] [address] 81718Mcvgch [Moles/Vol]128 mmol/BAld246-508WvmVaxbigMetropolitan Methodist HospitalComment on above:Performed By: #### 3040-3, CMP, CBCA, 26557-3 #### [facility] ([id number]) [address] [place] [address] 51734Odou nitrogen [Mass/Vol]18 mg/dLNormal5-23ProMetropolitan Methodist HospitalComment on above:Performed By: #### 3040-3, CMP, CBCA, 74468-1 #### [facility] ([id number]) [address] [place] [address], [place] [address]SQH [Mass/Vol]on 5C REACTIVE PROTEIN1.0 mg/dLHigh 0.000-0.744PUniversity Hospitals Geneva Medical CenterComment on above:Performed By: #### 3040-3, CMP, CBCA, 72234-0 #### [facility] ([id number]) [address] [place] [address] 61143KZ ABDOMEN AND PELVIS W CONTon 95-03-1679NR ABDOMEN AND PELVIS W CONTCT ABDOMEN AND PELVIS W CONT HISTORY: Abdomen pain. Nausea COMPARISON: 05/31/2024 TECHNIQUE: Routine CT abdomen and pelvis obtained after the uncomplicated intravenous administration of contrast material.Multiplanar reformats obtained from the axial data. Automated exposure control was utilized. CONTRAST: Omnipaque FINDINGS: Liver and gallbladder: No acute process. Spleen: Normal. Pancreas: Normal. Adrenal glands: Normal. Kidneys: No hydronephrosis. Streak artifact from spinal hardware does affect renal imaging. Bowel: Stomach is rather fluid filled and distended. If there is concern for gastroparesis considerfollow-up nuclear medicine study. No bowel obstruction. No free air. Consider Aorta: Normal. Pelvis: Urinary bladder is unremarkable. Uterus is unremarkable. No free fluid Osseous structures: No acute findings. IMPRESSION: 1. No acute intraperitoneal process is noted. The stomach is rather distended and fluid-filled. This raises concern for gastroparesis. Please see above comments All CT scans at this facility use dose modulation, iterative reconstruction, and/or weight based dosing when appropriate to reduce radiation dose to as low as reasonably achievable. Finalized by Ciera Thacker MD on 12/01/2024 3:51 PMNormalProtestant Deaconess Hospital ESR Photometric method (Bld) [Velocity]on 03-57-9404WKZ, ERYTHROCYTE SEDIMENTATION RATE7 mm/hNormal0-20Pro[facility]aconess HospitalComment on above: Performed By: #### 3040-3, CMP, CBCA, 91854-1 #### [facility] ([id number]) [address] [place] [address] 71424WUITLYef 85-03-0071Ahjkyx [Catalytic activity/Vol]109 U/LHigh 17-40[facility] HospitalComment on above:Performed By: #### 3040-3, CMP, CBCA, 05768-5 #### [facility] ([id number]) [address] [place] [address] 72215Akxbbbm (P caroline) [Moles/Vol]on 33-53-0718HJIPLUY W/REFLEX1.4 mmol/LNormal0.4-2.0ProMetropolitan Methodist HospitalComment on above:Result Comment: Result did not trigger repeat Lactate, re-order if needed.Performed By: #### 3040-3, CMP, CBCA, 19555-1 #### [facility] ([id number]) [address] [place] [address] 50750LQIPGVJYEil 16-98-5393Qenwlixra [Mass/Vol]2.2 mg/dLNormal 1.8-2.6ProMetropolitan Methodist HospitalComment on above:Performed By: #### 3040-3, CMP, CBCA, 01995-4 #### [facility] ([id number]) [address] [place] [address] 32407Jxm 11-21-2024L Specimen: [id number] Received: 11/21/24 [facility] [id number] Spec Type: Surgical Subm Dr: Belinda Medina MD Tissues: A Small Intestine - Biopsy/Polyp (SMALL BOWEL BX) B Colon Biopsy (RIGHT COLON BX) C Colon Biopsy (TRANSVERSE COLON BX) D Colon Biopsy (DESCENDING COLON BX) E Colon Biopsy (SIGMOID COLON BX) F Colon Biopsy (RECTAL BX) Procedures: HE/15, Gross/Micro L4/6 Age/ Patient Sex Location Account Attending Physician [place] Lake 49/F [id number] Belinda Medina MD SPEC NUM: [id number] RECD: 11/21/24 STATUS: LINO RADHA NUM: [id number] [place]ANN[place]: 11/21/24-[address] [facility] [address]: Belinda Medina MD ENTERED: 11/21/24 [facility] DR: SARA TYPE: Surgical DEPT: S ENTERED BY: [id number] RECV BY: [id number] ORDERED: HE/15, Gross/Micro L4/6 ORDERED: HE/15, Gross/Micro [...] are identified E. Sigmoid colon biopsy: Specimen: [id number] Received: 11/21/24 Status: LINO Juarez Num: [id number] Spec Type: Surgical Subm Dr: Belinda Medina MD Tissues: A Small Intestine - Biopsy/Polyp (SMALL BOWEL BX) B Colon Biopsy (RIGHT COLON BX) C Colon Biopsy (TRANSVERSE COLON BX) D Colon Biopsy (DESCENDING COLON BX) E Colon Biopsy (SIGMOID COLON BX) F Colon Biopsy (RECTAL BX) Procedures: /15, Gross/Micro L4/6 Patient: Alva Lake [id number] (Continued) Specimen: Received: 11/21/24 (Continued) Pathological Diagnosis (Continued) Signed (signature on file) Rubin Strickland MD 11/22/24 1400 Specimen: [id number] Received: 11/21/24 Status: LINO Juarez Num: [id number] Spec Type: Surgical Subm Dr: Belinda Medina MD Tissues: A Small Intestine - Biopsy/Polyp (SMALL BOWEL BX) B Colon Biopsy (RIGHT COLON BX) C Colon Biopsy (TRANSVERSE COLON BX) D Colon Biopsy (DESCENDING COLON BX) E Colon Biopsy (SIGMOID COLON BX) F Colon Biopsy (RECTAL BX) Procedures: /, Gross/Micro L4/6 Patient: VenkateshgloriaAlva [id number] (Continued) Specimen: [id number] Received: 11/21/24 (Continued) Pathological Diagnosis (Continued) ? [...] submitted in a single cassette. (1, ns, [id number]) JG Part B is received in formalin labeled with the patients name, date of , and right colon BX are 2 edmondson-forrester, focally erythematous, friable, 0.4 and 0.5 cm in greatest dimension tissue strips. (more content not included)...NormalThe Community Health Physician GroupCBC AND AUTO DIFFon 58-60-8497CBLQWPEE BASOPHIL0.0 X10E9/LNormal 0.0-0.2PUniversity Hospitals Geneva Medical CenterComment on above:Performed By: #### CMP CBCA #### [facility] ([id number]) [address] [place] [address] 24280DQGEGTUP NEUTROPHIL8.6 X10E9/LHigh1.5-6.6[facility]aconess HospitalComment on above:Performed By: #### CMP CBCA #### [facility] ([id number]) [address] [place] [address] 75436Qhwjnsmfe/100 WBC (Bld)0.2 %[facility] Comment on above:Performed By: #### CMP, CBCA #### [facility] ([id number]) [address] [place] [address] 30999Gfxgvqrmxdl (Bld) [#/Vol]0.0 10*3/uLNormal0.0-0.4[facility] HospitalComment on above:Performed By: #### CMP, CBCA #### [facility] ([id number]) [address] [place] [address] 02115Njunpgetwep/100 WBC (Bld)0.1 %[facility] Comment on above:Performed By: #### CMP, CBCA #### [facility] ([id number]) [address] [place] [address] 42080Mujstvimwwg distribution width (RBC) [Ratio]15.5 %High11.5-15.0 [facility] HospitalComment on above:Performed By: #### CMP, CBCA #### [facility] ([id number]) [address] [place] [address] 67797Ofjyeadgjb (Bld) [Volume fraction]35.2 %Mmojbj80-52ErbXdpmraMetropolitan Methodist HospitalComment on above:Performed By: #### CMP, CBCA #### [facility] ([id number]) [address] [place] [address] 67146Aerjypbacp (Bld) [Mass/Vol]11.3 g/dLLow11.7-15.5PUniversity Hospitals Geneva Medical CenterComment on above:Performed By: #### CMP, CBCA #### [facility] ([id number]) [address] [place] [address] 56622Hbxpikcqmcu (Bld) [#/Vol]1.3 10*3/uLNormal1.0-3.5PUniversity Hospitals Geneva Medical CenterComment on above:Performed By: #### CMP, CBCA #### [facility] ([id number]) [address] [place] [address] 10616Cmegtbzszba/100 WBC (Bld)11.4 %NormalProtestant Deaconess Hospital Comment on above:Performed By: #### CMP, CBCA #### [facility] ([id number]) [address] [place] [address] 15819MUI (RBC) [Entitic mass]24.4 whUyl20-20WyjKcmvbsMetropolitan Methodist HospitalComment on above:Performed By: #### CMP, CBCA #### [facility] ([id number]) [address] [place] [address] 32445DCKT (RBC) [Mass/Vol]32.1 g/fOFztbwx06-48RzoPwznquProtestant Deaconess HospitalComment on above:Performed By: #### CMP, CBCA #### [facility] ([id number]) [address] [place] [address] 86429LSU (RBC) [Entitic vol]76 lQHco77-354NidUsazlnProtestant Deaconess Hospital Comment on above:Performed By: #### CMP, CBCA #### [facility] ([id number]) [address] [place] [address] 45382Lhvqscmcj (Bld) [#/Vol]1.1 10*3/uLHigh0-0.9[facility] HospitalComment on above:Performed By: #### CMP, CBCA #### [facility] ([id number]) [address] [place] [address] 17745Cthywtsto/100 WBC (Bld)10.2 %[facility] Comment on above:Performed By: #### CMP, CBCA #### [facility] ([id number]) [address] [place] [address] 18399Khiqechdods/100 WBC (Bld)78.1 %[facility] Comment on above:Performed By: #### CMP, CBCA #### [facility] ([id number]) [address] [place] [address] 50187Vaubeomn mean volume (Bld) [Entitic vol]7.7 fLNormal7-12 [facility] HospitalComment on above:Performed By: #### CMP, CBCA #### [facility] ([id number]) [address] [place] [address] 55837Edyfcgfni (Bld) [#/Vol]300 10*3/jBAktmll464-593KkaWjsduk [facility]remont HospitalComment on above:Performed By: #### CMP, CBCA #### [facility] ([id number]) [address] [place] [address] 42840HEU COUNT4.62 X10E12/LNormal3.80-5.20[facility] Comment on above:Performed By: #### CMP, CBCA #### [facility] ([id number]) [address] [place] [address], [place] [address]UAW (Bld) [#/Vol]11.0 10*3/uLNormal4.0-11.0ProMetropolitan Methodist HospitalComment on above:Performed By: #### CMP, CBCA #### [facility] ([id number]) [address] [place] [address] 39518OTEHNLXNPYCYG METABOLIC PANELon 64-92-0769Glrxyqx [Mass/Vol]3.9 g/dLNormal3.2-5.3PUniversity Hospitals Geneva Medical CenterComment on above:Performed By: #### CMP, CBCA #### [facility] ([id number]) [address] [place] [address], [place] 978[address]RSB [Catalytic activity/Vol]44 U/NGupahc71-622GvnSpoqazMetropolitan Methodist HospitalComment on above:Performed By: #### CMP, CBCA #### [facility] ([id number]) [address] [place] [address], [place] [address]LBD [Catalytic activity/Vol]13 U/LNormal0-31PUniversity Hospitals Geneva Medical CenterComment on above:Performed By: #### CMP, CBCA #### [facility] ([id number]) [address] [place] [address] 36731Howek gap [Moles/Vol]7 mmol/LNormal5-15ProMetropolitan Methodist HospitalComment on above:Performed By: #### CMP, CBCA #### [facility] ([id number]) [address] [place] [address] 93629ASE [Catalytic activity/Vol]15 U/LNormal0-41[facility] HospitalComment on above:Performed By: #### CMP, CBCA #### [facility] ([id number]) [address] [place] [address], [place] [address]Wlnslizgq [Mass/Vol]1.1 mg/dLNormal0.3-1.2PUniversity Hospitals Geneva Medical CenterComment on above:Performed By: #### CMP, CBCA #### [facility] ([id number]) [address] [place] [address], [place] [address]Zaziwwf [Mass/Vol]8.5 mg/dLNormal8.5-10.5PUniversity Hospitals Geneva Medical CenterComment on above:Performed By: #### CMP, CBCA #### [facility] ([id number]) [address] [place] [address], [place] [address]Wsyottgu [Moles/Vol]93 mmol/XJjy50-092FmcKcncgcMetropolitan Methodist HospitalComment on above:Performed By: #### RAMBO, CBCA #### [facility] ([id number]) [address] [place] [address], [place] [address]VY7 [Moles/Vol]28 mmol/BFdwohs56-82WvkLahannUniversity Hospitals Geneva Medical Center Comment on above:Performed By: #### CMP, CBCA #### [facility] ([id number]) [address] [place] [address], [place] [address]Lfcjzktrzh [Mass/Vol]0.84 mg/dLNormal0.40-1.00[facility] Deaconess HospitalComment on above:Result Comment: METHOD TRACEABLE TO IDMS STANDARD Performed By: #### CMP, CBCA #### [facility] ([id number]) [address] [place] [address] 83488BRV/1.73 sq M.predicted among non-blacks MDRD (S/P/Bld) [Vol rate/Area]86 mL/min/{1.73_m2}Normal>59ProMetropolitan Methodist HospitalComment on above:Result Comment: Reported eGFR is based on the CKD-EPI 2020 equation that does not use a race coefficient.Performed By: #### CHERYL RICKS #### [facility] ([id number]) [address] [place] [address] 25757Bgaczml [Mass/Vol]110 mg/pSAjdu78-27AgoVnogbdProtestant Deaconess Hospital Comment on above:Performed By: #### RAMBO CBCLance #### [facility] ([id number]) [address] [place] [address], [place] [address]Aetfjwakv [Moles/Vol]3.1 mmol/LLow3.5-5.0ProMetropolitan Methodist HospitalComment on above:Performed By: #### CHERYL RICKS #### [facility] ([id number]) [address] [place] [address], [place] [address]Onnpsuo [Mass/Vol]7.2 g/dLNormal6.0-8.0ProMetropolitan Methodist HospitalComment on above:Performed By: #### CHERYL RICKS #### [facility] ([id number]) [address] [place] [address] 84135Nmytgx [Moles/Vol]128 mmol/TDyy894-505WdwJjcyliMetropolitan Methodist HospitalComment on above:Performed By: #### RAMBO CBCA #### [facility] ([id number]) [address] [place] [address], [place] [address]Nbgv nitrogen [Mass/Vol]19 mg/dLNormal5-23ProMetropolitan Methodist HospitalComment on above:Performed By: #### RAMBO CBCA #### [facility] ([id number]) [address] [place] [address], [place] [address]LN ABDOMEN AND PELVIS WO CONTon 88-27-6985WM ABDOMEN AND PELVIS WO CONTCT ABDOMEN AND PELVIS WO CONT CLINICAL INFORMATION: [...] by Juan Carlos Escobedo on 05/31/2024 10:00 AMNormalProtestant Deaconess Hospital Surgical Pathologyon 51-05-3573Hijybqys PathologyNoSelect Medical Specialty Hospital - CincinnatiComment on above:Result Comment: [facility] [address] [place] [address] Surgical Pathology Consultation Patient Name:ALVA LAKE:1975 (Age: 48)Gender:FTaken:4Reported:4Physician(s):Geovanni Nj MD ([phone])Copy To: Rec. #:[id number]: #1 [phone] Final Pathologic Diagnosis 1. Transverse colon biopsy: [...] Out ao/4Alian Camara MD [facility] [address] [place] [address], License number: [id number]. Clinical History Colitis. Gross Description 1. Received in formalin labeled ALEKSANDRA, #1: Transverse BX are 3 edmondson bits/strips of soft tissue, ranging from 0.5-0.9 cm in greatest dimension. Filtered and submitted in a single cassette. (1, ns, [id number], m7) MG 2. Received in formalin labeled ALEKSANDRA, #2: Sigmoid are 5 edmondson bits of soft tissue, ranging from 0.2-0.3 cm in greatest dimension. Filtered and submitted in a single cassette. (1, ns, [id number], m7) MG mjg/4AO Specimen(s) Received 1: Transverse colon biopsies 2: Sigmoid colon biopsy Fee Codes(s): 1; 85376 2; 33087LBP AND AUTO DIFFon 59-20-8778CABVAUHP BASOPHIL0.0 X10E9/LNormal0.0-0.2 [facility] HospitalComment on above:Performed By: #### 3040-3, CMP, CBCA, 39251-3 #### [facility] ([id number]) [address] [place] [address], [place], [place] [address]MEXWDDDM PEWAFJCFTH84.5 X10E9/LHigh1.5-6.6ProJoint Township District Memorial Hospitalca [facility] Hospital PresbyterianComment on above:Performed By: #### 3040-3, CMP, CBCA, 21700-6 #### [facility] ([id number]) [address] [place] [address] 44512Igrxbthrd/100 WBC (Bld)0.2 %[facility] Comment on above:Performed By: #### 3040-3, CMP, CBCA, 37009-3 #### [facility] ([id number]) [address] [place] [address] 76407Tvdqoxmofxx (Bld) [#/Vol]0.0 10*3/uLNormal0.0-0.4[facility] HospitalComment on above:Performed By: #### 3040-3, CMP, CBCA, 41057-5 #### [facility] ([id number]) [address] [place] [address] 62978Hkjchydechj/100 WBC (Bld)0.1 %[facility] Comment on above:Performed By: #### 3040-3, CMP, CBCA, 08154-6 #### [facility] ([id number]) [address] [place] [address] 64402Ljblcmjmsjz distribution width (RBC) [Ratio]19.1 %High11.5-15.0 [facility] HospitalComment on above:Performed By: #### 3040-3, CMP, CBCA, 91774-2 #### [facility] ([id number]) [address] [place] [address] 53984Zruvszyvci (Bld) [Volume fraction]36.4 %Auhwia56-37NwmYkonxyProtestant Deaconess HospitalComment on above:Performed By: #### 3040-3, CMP, CBCA, 80322-5 #### [facility] ([id number]) [address] [place] [address] 51531Hrjbyilecl (Bld) [Mass/Vol]12.2 g/eIGvtjrg56.7-15.5ProMedSonoma Developmental CenterComment on above:Performed By: #### 3040-3, CMP, CBCA, 27608-7 #### [facility] ([id number]) [address] [place] [address] 72249Vogcrjyawlq (Bld) [#/Vol]0.7 10*3/uLLow1.0-3.5PUniversity Hospitals Geneva Medical CenterComment on above:Performed By: #### 3040-3, CMP, CBCA, 38102-8 #### [facility] ([id number]) [address] [place] [address] 94107Cuqjmyuupre/100 WBC (Bld)5.7 %NormalProtestant Deaconess Hospital Comment on above:Performed By: #### 3040-3, CMP, CBCA, 59195-0 #### [facility] ([id number]) [address] [place] [address] 73936LVU (RBC) [Entitic mass]24.9 mkYcr69-33OmfJspzqeProtestant Deaconess HospitalComment on above:Performed By: #### 3040-3, CMP, CBCA, 64545-0 #### [facility] ([id number]) [address] [place] [address] 87829DXCN (RBC) [Mass/Vol]33.5 g/zDGjocua30-46QuqJdoqpjProtestant Deaconess HospitalComment on above:Performed By: #### 3040-3, CMP, CBCA, 51747-1 #### [facility] ([id number]) [address] [place] [address] 94978ITS (RBC) [Entitic vol]74 rKAoo87-858DykWwmfheProtestant Deaconess Hospital Comment on above:Performed By: #### 3040-3, CMP, CBCA, 67984-4 #### [facility] ([id number]) [address] [place] [address] 30399Ronxxoodm (Bld) [#/Vol]0.4 10*3/uLNormal0-0.9[facility] HospitalComment on above:Performed By: #### 3040-3, CMP, CBCA, 24524-8 #### [facility] ([id number]) [address] [place] [address] 14774Tqfjvixth/100 WBC (Bld)3.2 %NormalProtestant Deaconess Hospital Comment on above:Performed By: #### 3040-3, CMP, CBCA, 22768-0 #### [facility] ([id number]) [address] [place] [address] 46157Afrfrgjftyr/100 WBC (Bld)90.8 %[facility] Comment on above:Performed By: #### 3040-3, CMP, CBCA, 01238-2 #### [facility] ([id number]) [address] [place] [address] 50320Mguriwne mean volume (Bld) [Entitic vol]8.1 fLNormal7-12 [facility] HospitalComment on above:Performed By: #### 3040-3, CMP, CBCA, 05380-4 #### [facility] ([id number]) [address] [place] [address] 53715Iqoonwnmn (Bld) [#/Vol]435 10*3/fRDedcsj127-107KdqKteaozProtestant Deaconess HospitalComment on above:Performed By: #### 3040-3, CMP, CBCA, 14507-2 #### [facility] ([id number]) [address] [place] [address] 48985IJB COUNT4.90 X10E12/LNormal3.80-5.20[facility] Comment on above:Performed By: #### 3040-3, CMP, CBCA, 35927-9 #### [facility] ([id number]) [address] [place] [address] 93499FWE (Bld) [#/Vol]12.6 10*3/uLHigh4.0-11.0Pro[facility] HospitalComment on above:Performed By: #### 3040-3, CMP, CBCA, 77530-2 #### [facility] ([id number]) [address] [place] [address] 57315DIFERPHQSYJOB METABOLIC PANELon 71-71-0021Kzlbgfl [Mass/Vol]4.1 g/dLNormal3.2-5.3ProMedSonoma Developmental CenterComment on above:Performed By: #### 3040-3, CMP, CBCA, 90808-2 #### [facility] ([id number]) [address] [place] [address] 73096HMJ [Catalytic activity/Vol]53 U/BGtbgvg59-461JqiDxnwcxMetropolitan Methodist HospitalComment on above:Performed By: #### 3040-3, CMP, CBCA, 04087-1 #### [facility] ([id number]) [address] [place] [address], [place] [address]DAI [Catalytic activity/Vol]10 U/LNormal0-31PUniversity Hospitals Geneva Medical CenterComment on above:Performed By: #### 3040-3, CMP, CBCA, 76277-7 #### [facility] ([id number]) [address] [place] [address] 30823Rnmhm gap [Moles/Vol]8 mmol/LNormal5-15ProMetropolitan Methodist HospitalComment on above:Performed By: #### 3040-3, CMP, CBCA, 92711-6 #### [facility] ([id number]) [address] [place] [address] 94659RZA [Catalytic activity/Vol]17 U/LNormal0-41ProMetropolitan Methodist HospitalComment on above:Performed By: #### 3040-3, CMP, CBCA, 78830-4 #### [facility] ([id number]) [address] [place] [address] [place] [address]Tzlhwcsvp [Mass/Vol]1.0 mg/dLNormal0.3-1.2PUniversity Hospitals Geneva Medical CenterComment on above:Performed By: #### 3040-3, CMP, CBCA, 70046-1 #### [facility] ([id number]) [address] [place] [address], [place] [address]Dclqtet [Mass/Vol]8.5 mg/dLNormal8.5-10.5PUniversity Hospitals Geneva Medical CenterComment on above:Performed By: #### 3040-3, CMP, CBCA, 96800-3 #### [facility] ([id number]) [address] [place] [address], [place] [address]Cxkzxhaw [Moles/Vol]99 mmol/BAkzelr21-190QpnQkhfojMetropolitan Methodist HospitalComment on above:Performed By: #### 3040-3, CMP, CBCA, 57000-8 #### [facility] ([id number]) [address] [place] [address] 62153CV5 [Moles/Vol]24 mmol/PRsujeg57-95OmuZuhwjeUniversity Hospitals Geneva Medical Center Comment on above:Performed By: #### 3040-3, CMP, CBCA, 35259-1 #### [facility] ([id number]) [address] [place] [address], [place] [address]Amircvwggf [Mass/Vol]0.71 mg/dLNormal0.40-1.00ProMetropolitan Methodist HospitalComment on above:Result Comment: METHOD TRACEABLE TO IDMS STANDARD Performed By: #### 3040-3, CMP, CBCA, 30442-1 #### [facility] ([id number]) [address] [place] [address] 88485tYKL (CKD-EPI) NON-RACE DEPENDENT>90Normal>59ProMetropolitan Methodist HospitalComment on above:Result Comment: Reported eGFR is based on the CKD-EPI 2020 equation that does not use a race coefficient.Performed By: #### 3040-3, CMP, CBCA, 35188-1 #### [facility] ([id number]) [address] [place] [address], [place] [address]Bouuisn [Mass/Vol]114 mg/fVNtex29-00VjyCgcpnpMetropolitan Methodist Hospital Comment on above:Performed By: #### 3040-3, CMP, CBCA, 16014-4 #### [facility] ([id number]) [address] [place] [address] 42792Izawfofqa [Moles/Vol]3.7 mmol/LNormal3.5-5.0ProMetropolitan Methodist HospitalComment on above:Performed By: #### 3040-3, CMP, CBCA, 00106-5 #### [facility] ([id number]) [address] [place] [address] 84387Mrlictw [Mass/Vol]7.6 g/dLNormal6.0-8.0ProMetropolitan Methodist HospitalComment on above:Performed By: #### 3040-3, CMP, CBCA, 82294-3 #### [facility] ([id number]) [address] [place] [address] 98772Hxmids [Moles/Vol]131 mmol/GRqg921-502TzhObjyaxMetropolitan Methodist HospitalComment on above:Performed By: #### 3040-3, CMP, CBCA, 10245-6 #### [facility] ([id number]) [address] [place] [address] 91989Oawn nitrogen [Mass/Vol]11 mg/dLNormal5-23ProMetropolitan Methodist HospitalComment on above:Performed By: #### 3040-3, CMP, CBCA, 62910-9 #### [facility] ([id number]) [address] [place] [address], [place] [address]BJS ( test) Ql (U)on 02-85-0075Mjvj HCG ( test) Ql (U)NegativeNormalNEGProtestant Deaconess HospitalComment on above: Performed By: #### 2106-3 #### [facility] ([id number]) [address] [place] [address], [place] [address]QWUGPJyc 25-33-2545Emziom [Catalytic activity/Vol]42 U/LHigh 17-40ProMetropolitan Methodist HospitalComment on above:Performed By: #### 3040-3, CMP, CBCA, 39952-4 #### [facility] ([id number]) [address] [place] [address]Zfdgpuz (P caroline) [Moles/Vol]on 24-64-0851QXBYKTF W/REFLEX1.1 mmol/LNormal0.4-2.0ProMetropolitan Methodist HospitalComment on above:Result Comment: Result did not trigger repeat Lactate, re-order if needed.Performed By: #### 3040-3, CMP, CBCA, 74907-6 #### [facility] ([id number]) [address] [place] [id number] MACROSCOPIC NURon 08-13-0941UBFKATRUM NURSmallAbnormalNEG ProM[facility] centera [facility] PresbyterianComment on above:Performed By: #### NUM #### [facility] ([id number]) [address] [place] [address], [place] [address]RUVUD/HGB NURNegativeNormalNEGProMetropolitan Methodist HospitalComment on above:Performed By: #### NUM #### [facility] ([id number]) [address] [place] [address] 90214PKBMIDX NURNegativeNormalNEGProMetropolitan Methodist HospitalComment on above:Performed By: #### NUM #### [facility] ([id number]) [address] [place] [address] 68858JYLCHGZ NUR80 mg/dLAbnormalNEGProMetropolitan Methodist HospitalComment on above:Performed By: #### NUM #### [facility] ([id number]) [address] [place] [address] 90858XGPUTAVMK ESTERASE NURNegativeNormalNEGProtestant Deaconess HospitalComment on above:Performed By: #### NUM #### [facility] ([id number]) [address] [place] [address] 58608QAVVQWW NURNegativeNormalNEGProAcmc Healthcare System Glenbeigh HospitalComment on above:Performed By: #### NUM #### [facility] ([id number]) [address] [place] [address] 35184ZV NUR6.3Nzxvek8.0-8.5PUniversity Hospitals Geneva Medical CenterComment on above:Performed By: #### NUM #### [facility] ([id number]) [address] [place] [address] 96954NJAULEK NUR30 mg/dLAbnormalNEGProMetropolitan Methodist HospitalComment on above:Performed By: #### NUM #### [facility] ([id number]) [address] [place] [address] 82800EEOYPYTB GRAVITY NUR1.911Mminds7.003-1.035ProMetropolitan Methodist HospitalComment on above:Performed By: #### NUM #### [facility] ([id number]) [address] [place] [address] 70394OJMRCJHKHIRG NUR0.2 eu/dLNormal<1.1PUniversity Hospitals [facility] Center Comment on above:Performed By: #### NUM #### [facility] ([id number]) [address] [place] [address]35Dfbggbpm labsOrdered By: Nica Villa on 85-28-1711NaxPnxbipCommunity Memorial HospitalBASIC METABOLIC PANLon 49-39-6019Jepui gap [Moles/Vol]8 mmol/L Normal5-15ProHighland District Hospital HospitalComment on above:Performed By: #### BMP #### [facility] ([id number]) [address], [address] [place], [place] [address]Vopkltl [Mass/Vol]8.6 mg/dLNormal8.5-10.5ProMedica [facility] HospitalComment on above:Performed By: #### BMP #### [facility] ([id number]) [address], [address] [place], [place] [address]Djegzwuw [Moles/Vol]105 mmol/ROueoem28-893JgdTrjnvx [facility] HospitalComment on above:Performed By: #### BMP #### [facility] ([id number]) [address], [address] [place], [place] [address]NA1 [Moles/Vol]25 mmol/XSqutpv21-00BmaYdwlie [facility] Comment on above:Performed By: #### BMP #### [facility] ([id number]) [address] [place], [place] [address]Terticxtee [Mass/Vol]0.74 mg/dLNormal0.40-1.00ProJoint Township District Memorial Hospitalca [facility]rales HospitalComment on above:Result Comment: METHOD TRACEABLE TO IDMS STANDARD Performed By: #### BMP #### [facility] ([id number]) [address] [address] [place], [place] [address]tYLJ (CKD-EPI) NON-RACE DEPENDENT>90Normal>59ProJoint Township District Memorial Hospitalca [facility]rales HospitalComment on above:Result Comment: Reported eGFR is based on the CKD-EPI 2021 equation that does not use a race coefficient.Performed By: #### BMP #### [facility] ([id number]) [address] [place], [place] [address]Wseddkn [Mass/Vol]87 mg/qQFztrln46-13UneCztsyp [facility] Comment on above:Performed By: #### BMP #### [facility] ([id number]) [address], [address] [place], [place] [address]Ahwxztfdr [Moles/Vol]3.9 mmol/LNormal3.5-5.0ProCincinnati Shriners HospitalComment on above:Performed By: #### BMP #### [facility] ([id number]) [address], [address] [place], [place] [address]Idjoxf [Moles/Vol]138 mmol/PRvojwj402-384QdpTkuiqp [facility] HospitalComment on above:Performed By: #### BMP #### [facility] ([id number]) [address], [address] [place], [place] [address]Nxbb nitrogen [Mass/Vol]5 mg/dLNormal5-23ProCincinnati Shriners HospitalComment on above:Performed By: #### BMP #### [facility] ([id number]) [address], [address] [place] [address]Mcdom Metabolic Panelon 68-01-4562Vadil gap [Moles/Vol]8 mmol/L5 - 15 mmol/[facility] Centerica Health SystemCalcium [Mass/Vol]8.6 mg/dL8.5 - 10.5 mg/dL [facility] Medical CenterChloride [Moles/Vol]105 mmol/L98 - 109 mmol/[facility] CenteroMedica Health SystemCO2 [Moles/Vol]25 mmol/L22 - 32 mmol/[facility] CenteroMedica [facility] System Creatinine [Mass/Vol]0.74 mg/dL0.40 - 1.00 mg/dLCincinnati VA Medical CenterComment on above:METHOD TRACEABLE TO IDMD STANDARDeGFR (CKD-EPI)non-race dependent- PINF [facility] Medical CenterComment on above: Reported eGFR is based on the CKD-EPI 2020 equation that does not use a race coefficient. Glucose [Mass/Vol]87 mg/dL65 - 99 mg/dLCincinnati VA Medical CenterPotassium [Moles/Vol]3.9 mmol/L3.5 - 5.0 mmol/LProMedica Health SystemSodium [Moles/Vol] 138 mmol/L134 - 146 mmol/LProMedica Health SystemUrea nitrogen [Mass/Vol]5 mg/dL 5 - 23 mg/dLWellSpan Gettysburg HospitalINFLUENZA A AND B AGon 70-74-2094BNFLRFBFALYDS [facility] HospitalComment on above:Result Comment: Negative for Flu A protein angiten. Infection due to Flu A cannot be ruled out. FluA angiten in the sample may be below the detection limit of the test.Performed By: #### INFLUAB #### [facility] [address] [place] [address] Jessie KarenINFLUBNEGHSEE [facility] HospitalComment on above: Result Comment: Negative for Flu B protein antigen. Infection due to Flu B cannot be ruled out. FluB antigen in the sample may be below the detection limit of the test.Performed By: #### INFLUAB #### [facility] [address] [place] [address] Jessie KarenINFLUENZA A AGNegativeNormalNEGATIVE SEE COMMENTThe [facility] HospitalComhills & dales general [facility] on above:Performed By: #### INFLUAB #### [facility] [address] [place] [address] Jessie KarenINFLUENZA B AGNegativeNormalNEGATIVE SEE COMMENTThe [facility] on above:Performed By: #### INFLUAB #### [facility] [address] [place] [address] Jessie KarenINTERNAL CONTROLSWithin Normal LimitsNormalWithin Normal LimitsThe [facility] HospitalComhills & dales general hospital on above:Performed By: #### INFLUAB #### [facility] [address] [place] [address] Jessie Brannonen Vital Signs Date TimeVital SignValuePerforming KpsertmgsXlopccvs83-14-5729 08:33-0400Body vkjwny911.94 cmJohang incrediblue Work Phone: [facility]06-02-2025 08:33-0400 Body mass index (BMI) [Ratio]25.4 kg/m2Johang incrediblue Work Phone: [facility]06-02-2025 08:33-0400 Body fxegeg78.23 kgJohang Yuhas DO Work Phone: [facility]06-02-2025 08:33-0400 Diastolic blood mm[Hg]Geovanni Yuhas DO Work Phone: [facility]06-02-2025 08:33-0400 Heart rate53 /minGeovanni Yuhas DO Work Phone: [phone]06-02-2025 08:33-0400 Systolic blood ojrkgzgv040 mm[Hg]Geovanni Yuhas DO Work Phone: [phone]04-01-2025 11:05-0400 Diastolic blood qwcjihef85 mm[Hg]Geovanni Yuhas DO Work Phone: [phone]04-01-2025 11:05-0400 Heart rate62 /Kendra Yuhas DO Work Phone: [phone]04-01-2025 11:05-0400 Respiratory rate16 /Kendra Yuhas DO Work Phone: [phone]04-01-2025 11:05-0400 SaO2% (BldA) [Mass fraction]100 %Geovanni Yuhas DO Work Phone: [facility]04-01-2025 11:05-0400 Systolic blood wpyncvjd030 mm[Hg]Geovanni Gibbshas DO Work Phone: [phone]04-01-2025 08:21-0400 Body dwaifv684.94 cmJohang Yuhas DO Work Phone: [phone]04-01-2025 08:21-0400 Body wibecd02.23 kgJohn Yuhas DO Work Phone: [facility]11-05-2024 16:39-0500 Diastolic blood cmrudovn03 mm[Hg]Geovanni Yuhas DO Work Phone: [facility] [employer] Jmpxwb47-87-4932 16:39-0500Systolic blood hfcvkyvz88 mm[Hg]Geovanni Nj DO Work Phone: [facility] [employer] Sfsjtu93-79-3130 15:58-0500Body ugypmm221.9 cmGeovanni Nj DO Work Phone: [facility] [employer] Cignrj87-77-5001 15:58-0500Body mass index (BMI) [Ratio]24.75 kg/m2Geovanni Gavirias DO Work Phone: [facility] [employer] Xjlvxd62-75-5844 15:58-0500Body kxqeuaemeom30.1 [degF]Geovanni Nj DO Work Phone: [facility] [employer] Bjywwu21-62-7721 15:58-0500Body xestvl42.42 kgGeovanni Gavirias DO Work Phone: [facility] [employer] Gemlpk80-95-0150 15:58-0500Heart rate 72 /minGeovanni Gavirias DO Work Phone: [facility] [employer] Rmryfr70-98-2138 15:58-0500 Respiratory rate18 /minGeovanni Nj DO Work Phone: [facility] [employer] Lazaaq89-97-3966 15:58-4014KcI7% (BldA) [Mass fraction]98 %Geovanni Nj DO Work Phone: [facility] [employer] Pbvbzh02-14-6206 16:37-0400Body zgxtfa567.9 cmGeovanni Nj DO Work Phone: [facility] [employer] Hplwof39-50-0910 16:37-0400Body mass index (BMI) [Ratio]23.83 kg/m2Geovanni Gavirias DO Work Phone: [facility] [employer] Dbkhjb07-86-8660 16:37-0400Body fwzgyhucjhy58.1 [degF]Geovanni Nj DO Work Phone: [facility] [employer] Bsynhd51-84-3848 16:37-0400Body pkesyt66.2 kgGeovanni Nj DO Work Phone: [facility] [employer] Bpnkom84-46-8750 16:37-0400Diastolic blood tprldygh22 mm[Hg]Geovanni Nj DO Work Phone: [facility] [employer] Ssrlwi17-53-9838 16:37-0400Heart rate 79 /minGeovanni Nj DO Work Phone: [facility] [employer] Chudeo75-04-9797 16:37-5111RfP7% (BldA) [Mass fraction]97 %Geovanni Nj DO Work Phone: [facility] [employer] Metafo53-04-2762 16:37-0400Systolic blood yzdjdpoj373 mm[Hg]Geovanni Nj DO Work Phone: [facility]08-28-2024 14:37-0400Diastolic blood tglkolkr20 mm[Hg]Geovanni Nj DO Work Phone: [facility] [employer] Khbyfd57-99-0009 14:37-0400Systolic blood hjvljopq342 mm[Hg]Geovanni Nj DO Work Phone: [facility] [employer] Gdpflv02-95-8194 14:34-0400Body csiciz854.9 cmJohang jN DO Work Phone: [facility] [employer] Ckloly84-46-1929 14:34-0400Body mass index (BMI) [Ratio]25.47 kg/m2Geovanni Nj DO Work Phone: [facility] [employer] Jimjmx63-93-8943 14:34-0400Body pmrwbaioqvd94.81 [degF]Geovanni Nj DO Work Phone: [facility] [employer] Pavapu93-17-0111 14:34-0400Body ruthzg94.15 kgJohang Nj DO Work Phone: [facility]08-28-2024 14:34-0400Heart rate 82 /minGeovanni Nj DO Work Phone: [facility]08-28-2024 14:34-0400 Respiratory rate18 /minGeovanni Nj DO Work Phone: [facility]08-28-2024 14:34-0935QpA5% (BldA) [Mass fraction]99 %Geovanni Nj DO Work Phone: [facility]07-25-2024 11:17-0400Body ckjomn499.9 cmGeovanni Nj DO Work Phone: [facility]07-25-2024 11:17-0400Body mass index (BMI) [Ratio]24.96 kg/m2Johang Nj DO Work Phone: [facility]07-25-2024 11:17-0400Body qbhfvgueppw76.2 [degF]Geovanni Nj DO Work Phone: [facility]07-25-2024 11:17-0400Body ojeuvq00.92 kgGeovanni Nj DO Work Phone: [facility]07-25-2024 11:17-0400Diastolic blood uvddhrku85 mm[Hg]Geovanni Nj DO Work Phone: [facility]07-25-2024 11:17-0400Heart rate 71 /minGeovanni Nj DO Work Phone: [facility]07-25-2024 11:17-9127GbC4% (BldA) [Mass fraction]98 %Geovanni Nj DO Work Phone: [facility]07-25-2024 11:17-0400Systolic blood wfmckoel057 mm[Hg]Geovanni Nj DO Work Phone: [facility]07-16-2024 12:07-0400Body zcifya966.[address]07-16-2024 12:07-0400Body mass index (BMI) [Ratio]24.34 kg/m[address]07-16-2024 12:07-0400Body yledwz24.[address] [place], [place] [address]206-18-2024 10:25-0400Diastolic blood qozdyphq47 mm[Hg]Geovanni Nj DO Work Phone: [facility]06-18-2024 10:25-0400Systolic blood fialmhmb89 mm[Hg]Geovanni Nj DO Work Phone: [facility]06-18-2024 09:35-0400Body ancqju521.9 cmGeovanni Gavirias DO Work Phone: [facility]06-18-2024 09:35-0400Body mass index (BMI) [Ratio]25.07 kg/m2Geovanni Nj DO Work Phone: [facility]06-18-2024 09:35-0400Body ayumzukgydj69.1 [degF]Geovanni Nj DO Work Phone: [facility]06-18-2024 09:35-0400Body npugwo91.19 kgGeovanni Nj DO Work Phone: [facility]06-18-2024 09:35-0400Heart rate 78 /minGeovanni Nj DO Work Phone: [facility]06-18-2024 09:35-0400 Respiratory rate18 /minGeovanni Nj DO Work Phone: [facility]06-18-2024 09:35-7617WjC1% (BldA) [Mass fraction]96 %Geovanni Nj DO Work Phone: [facility]06-06-2024 14:41-0400Body awuzhm051.9 cmCande Rand MICROFILM CLERK-MANUFACTURING INDUSTRIAL ENGINEER Work Phone: [facility]06-06-2024 14:41-0400Body mass index (BMI) [Ratio]26.07 kg/m2Kelligabby Jeromepatric MICROFILM CLERK-MANUFACTURING INDUSTRIAL ENGINEER Work Phone: [facility]06-06-2024 14:41-0400Body lijdqkthsht22.3 [degF]Cande Rand APRN-MANUFACTURING INDUSTRIAL ENGINEER Work Phone: [facility]06-06-2024 14:41-0400Body jacmzo65.6 kgCande Rand APRN-MANUFACTURING INDUSTRIAL ENGINEER Work Phone: [facility]06-06-2024 14:41-0400Diastolic blood exicmvqo02 mm[Hg]Cande Rand APRNMadelinMANUFACTURING INDUSTRIAL ENGINEER Work Phone: [facility]06-06-2024 14:41-0400Heart rate 70 /minCande Rand APRN-MANUFACTURING INDUSTRIAL ENGINEER Work Phone: [facility]06-06-2024 14:41-0400 Respiratory rate12 /minCande Rand APRN-MANUFACTURING INDUSTRIAL ENGINEER Work Phone: [facility]06-06-2024 14:41-6167TxR5% (BldA) [Mass fraction]99 %Cande Rand APRN-MANUFACTURING INDUSTRIAL ENGINEER Work Phone: [facility]06-06-2024 14:41-0400Systolic blood owwodgff191 mm[Hg]Cande Rand APRNMadelinMANUFACTURING INDUSTRIAL ENGINEER Work Phone: [facility]05-17-2024 09:36-0400Body .9 cmCande Rand APRNMadelinMANUFACTURING INDUSTRIAL ENGINEER Work Phone: [facility]05-17-2024 09:36-0400Body mass index (BMI) [Ratio]27.21 kg/m2Cande Rand APRN-MANUFACTURING INDUSTRIAL ENGINEER Work Phone: [facility]05-17-2024 09:36-0400Body mpuibfawjbn75.29 [degF]Cande Rand APRN-MANUFACTURING INDUSTRIAL ENGINEER Work Phone: [facility]05-17-2024 09:36-0400Body yzroze03.32 kgCande Rand APRN-MANUFACTURING INDUSTRIAL ENGINEER Work Phone: [employer]05-17-2024 09:36-0400Diastolic blood oljavnuv94 mm[Hg]Cande Rand MICROFILM CLERK-MANUFACTURING INDUSTRIAL ENGINEER Work Phone: [facility]-17-2024 09:36-0400Heart rate 69 /minCande Rand MICROFILM CLERK-MANUFACTURING INDUSTRIAL ENGINEER Work Phone: [facility] Hospital[facility]05-17-2024 09:36-5701OvS9% (BldA) [Mass fraction]96 %Cande Rand MICROFILM CLERK-MANUFACTURING INDUSTRIAL ENGINEER Work Phone: [facility] Hospital[facility]05-17-2024 09:36-0400Systolic blood hpzkgifu338 mm[Hg]Cande Rand MICROFILM CLERK-MANUFACTURING INDUSTRIAL ENGINEER Work Phone: [facility] HospitalT[facility]fa Encounters Encounter DateEncounter TypeCare ProviderFacilityStart: 04-26-2025 End: 67-81-7274Ocfrinwmo encounterCynthia Oneil [facility]Med[facility] Internal Medicine - Family MedicineComment on above:AppointmentStart: 01-22-2025 End: 28-65-0613axajgaxoboOpam Yuhas DO Work Phone: [facility] Work Phone: Start: 01-22-2025 End: 97-01-7601Daexzbc encounter procedureJohn Yuhas DO Work Phone: [employer] Physician [facility] Work Phone: Start: 12-01-2024 End: 93-20-8351Twavyquar department patient visitJOHN L YUHASProMedica Bear Valley Community Hospitaltart: 12-02-6053Oln-patient / Non-visitJohn Yuhas DO Work Phone: [facility] Work Phone: Start: 11-21-2024 End: 95-94-7545Dthwgvfqv to same day surgery centerJohn Yuhas DO Work Phone: [facility] Work Phone: Start: 11-21-2024 End: 40-84-0108xsxuidteteDtro Yuhas DO Work Phone: [facility] Work Phone: Start: 11-09-2024 End: 14-87-0158ptoifjqdnuFzcjmnkav [facility] Work Phone: Start: 11-09-2024 End: 42-45-5469Rcorgjy encounter procedureCommunity Health [facility] Work Phone: Start: 08-08-2024 End: 29-04-3772nmscgrovndANAPMount Vernon Hospital Ambulatory PPGStart: 06-27-2024 End: 81-72-2802Acxqnb outpatient visit 25 minutesGeovanni Gibbscarolinapatric DO Work Phone: [facility] - Family MedicineComment on above:IBD (inflammatory bowel disease); HeartburnStart: 06-27-2024 End: 35-08-6053qroheqwxvvHWNJArchbold - [facility]ady [facility] Ambulatory PPGStart: 06-08-2024 End: 54-39-4046Upzihhhvl encounterBenita Xeniaradha [facility]OS[facility]ITALProMedica Physicians Internal Medicine - Family MedicineStart: 05-31-2024 End: 15-82-1373Pcgbcn outpatient visit 25 minutesGeovanni Machado Everettepatric DO Work Phone: [facility] Medicine - Family MedicineComment on above: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); IBD (inflammatory bowel disease); Heartburn; Nausea and vomiting, unspecified vomiting type; Hyponatremia with extracellular fluid depletionStart: 05-31-2024 End: 51-35-0128jvmkwlvkzqRTVTArchbold - Grady [facility] Hospital Ambulatory PPGStart: 05-31-2024 End: 30-60-6179Cchdrujin department patient visitKern Medical Centertart: 05-27-2024 End: 98-60-8220ilkjlargzySzcwsb Sndyanlumafredrick [facility] [place][note 2] Call CenterStart: 05-02-2024 End: 83-37-2907Rslnmfvpe encounterHerminio Leos CMAProMedica Physicians Internal Medicine [facility] MedicineStart: 05-01-2024 End: 62-33-3899Qfzodsiwp encounterHerminio Leos CMAProMedica Physicians Internal Medicine [facility] MedicineStart: 04-19-2024 End: 94-27-7311Qphpkm outpatient visit 25 minutesGeovanni Nj DO Work Phone: [facility] - Family [facility] HospitalComment on above:IBD (inflammatory bowel disease) (Primary Dx)Start: 04-19-2024 End: 49-19-4397rrwukwowzlTQSYMount Vernon Hospital Ambulatory PPGStart: 03-16-2024 End: 26-58-5590Xtxtht outpatient visit 25 minutesGeovanni Nj DO Work Phone: [facility] Internal Medicine [facility] HospitalComment on above:IBD (inflammatory bowel disease) (Primary Dx); Colitis due to Clostridioides difficileStart: 03-16-2024 End: 57-95-6065ieprrwlfdvYIKSMount Vernon Hospital Ambulatory PPGStart: 03-08-2024 End: 56-37-7158Deakpqrzrc and management of inpatientKern Medical Centertart: 03-07-2024 End: 28-57-1026oddmknijjuIwd Pat Phone Call Provider [address] [place] [address] - [facility] AdmitStart: 03-07-2024 End: 68-96-0437mxhkdzirrdVEFOContra Costa Regional Medical Centertart: 02-10-2024 End: 30-71-3713Ojmbzgfre department patient visitKern Medical Centertart: 02-08-2024 End: 11-60-2143zonlsegnuoQOLGMount Vernon Hospital Ambulatory PPGStart: 02-08-2024 End: 99-88-4285Ofdkng outpatient visit 25 minutesGeovanni Nj DO Work Phone: [facility] Internal Medicine [facility] MedicineComment on above:Colitis (Primary Dx); Hypotension, unspecified hypotension typeStart: 01-27-2024 End: 55-86-5470Ivoxlx outpatient visit 15 minutesCande Espinal Ann MICROFILM CLERK-MANUFACTURING INDUSTRIAL ENGINEER Work Phone: [facility] Physicians [facility] HospitalComment on above:Colitis due to Clostridioides difficile (Primary Dx) Start: 01-27-2024 End: 81-66-7965bzqzostqqkGNZRM [facility] Ambulatory PPGStart: 01-25-2024 End: 40-92-1903Ujmdzj OnlyNot In System Ref ProvPremier Health [facility] Physicians General SurgeryStart: 01-24-2024 End: 11-73-2244RgsxyjVvjwv [facility] Hospitaltart: 01-07-2024 End: 02-89-3103jkwnfudzvhQNHLNaval Hospital Bremerton HospitalStart: 01-07-2024 End: 65-54-2194Jusnda outpatient visit 15 minutesCande Blanca Rand MICROFILM CLERK-MANUFACTURING INDUSTRIAL ENGINEER Work Phone: ProMonroe Carell Jr. Children'S Hospital At VanderbiltComment on above:Colitis (Primary Dx); Hypokalemia; Reactive depression; Screen for colon cancerStart: 01-07-2024 End: 07-65-4990gfljpopzojWUZJM Health [facility] Ambulatory PPGStart: 08-27-2019 End: 39-96-2358Rsekdvm encounter procedureSTEPHEN G REINECKFacility:H1 Procedures DateProcedureProcedure DetailPerforming ClinicianStart: 50-63-6053Ldgjqhsiavk Geovanni Nj DO Work Phone: Start: 42-47-6101Anekn depression screening assessment Cynthia Oneil CMAStart: 83-37-2287Zbuvl depression screening assessmentGeovanni Nj DO Work Phone: Start: 38-53-0752Buxzx depression screening assessment Geovanni Nj DO Work Phone: Start: 47-45-3096Vhezy depression screening assessment Geovanni Nj DO Work Phone: Start: 9758Yuexy depression screening assessment Geovanni Nj DO Work Phone: Start: 15-58-9967Arscq depression screening assessment Geovanni Nj DO Work Phone: Start: 18-84-3962Gfxcd depression screening assessment Cande Rand MICROFILM CLERK-MANUFACTURING INDUSTRIAL ENGINEER Work Phone: Start: 31-58-8446BWVICMYP LABSNot In System Ref Prov Start: 76-76-8269Qtkbse-up visitFollow-upMARGabby JEROMESStart: 41-83-5206Xirkb depression screening assessmentCande Rand MICROFILM CLERK-MANUFACTURING INDUSTRIAL ENGINEER Work Phone: Plan of Treatment DateCare ActivityDetailAuthorStart: 96-99-6837Grfqy BMI ScreeningAdult BMI ScreeningProMedica Flower Hospitalca Health SystemStart: 76-56-0473Zqnxviq ScreeningTobacco ScreeningProMedica Flower Hospitalca [facility] Health SystemStart: 44-49-7023Ajkcwfrgqz ScreeningDepression ScreeningProMedica Flower Hospitalca [facility] SystemStart: 07-76-9161Vpeuy BMI ScreeningAdult BMI ScreeningProMedica Flower Hospitalca Health SystemStart: 39-90-3479Ddtpczvzuw ScreeningDepression ScreeningProMedica Flower Hospitalca [facility] SystemStart: 90-28-3409Sukok BMI ScreeningAdult BMI ScreeningProMedica Flower Hospitalca [facility] Health SystemStart: 61-06-1228Gdyovolowi ScreeningDepression ScreeningProMedica Flower Hospitalca Health SystemStart: 31-54-3443Ovepynm ScreeningTobacco ScreeningVermont Psychiatric Care HospitalMedica Health SystemStart: 19-32-7942Dtefh BMI ScreeningAdult BMI ScreeningProMedica Premier Health SystemStart: 39-49-7857Sxtwshsgfe ScreeningDepression ScreeningProMedica Flower Hospitalca [facility] Health SystemStart: 26-76-6608Aanyyav ScreeningTobacco ScreeningVermont Psychiatric Care HospitalMedica [facility] Health SystemStart: 05-11-1668Dubmt BMI ScreeningAdult BMI ScreeningProMedica Premier Health SystemStart: 55-15-7715Ncsxarqkro ScreeningDepression ScreeningProMedica Flower Hospitalca [facility] Health SystemStart: 74-93-5876Zjkxixb ScreeningTobacco ScreeningVermont Psychiatric Care HospitalMedica Health SystemStart: 94-42-8898Eoigs BMI ScreeningAdult BMI ScreeningProMedica Health SystemStart: 62-89-9826Cmwwlaa ScreeningTobacco ScreeningProMedica Health SystemStart: 47-14-9911Dmoug BMI ScreeningAdult BMI ScreeningProMedica Health SystemStart: 92-35-2522Zvwydxigmm ScreeningDepression ScreeningProMedica Health SystemStart: 73-66-3907Rsyevmd ScreeningTobacco ScreeningProMedica Health SystemStart: 58-36-2728Jfrii BMI ScreeningAdult BMI ScreeningProMedica Health SystemStart: 13-91-1127Tsqadzkucg ScreeningDepression ScreeningProMedica Health SystemStart: 13-91-2133Hrhomag ScreeningTobacco ScreeningProMedica Health SystemStart: 79-49-0777Qeztc BMI ScreeningAdult BMI ScreeningProJoint Township District Memorial Hospitalca Health SystemStart: 26-71-1012Odasuaxhuy ScreeningDepression ScreeningProJoint Township District Memorial Hospitalca Health SystemStart: 69-70-0683Qocewty ScreeningTobacco ScreeningProMedica Flower Hospitalca Health SystemStart: 66-56-7066QbyvmcigeTrumbull Regional Medical Centertart: 08-08-2024 End: 66-41-4598Wfstxiy encounter lanqksodb76/17/2024 2:30 PM EST Office Visit [facility] [address] [place] [address] Gevoanni Nj, DO [address] [place] [facility] - [facility] MedicineStart: 06-27-2024 End: 01-84-3274Xyimedp encounter jwuzlblvy95/05/2024 4:00 PM EST Office Visit [facility] [address] [place] [address] Geovanni Nj, DO [address] [facility], [id number] [facility] - Family MedicineStart: 05-31-2024 End: 93-30-0512Hgfvmit encounter vikoareay23/09/2024 1:40 PM EDT Office Visit [facility] [address] [place] [address] Leonel Avalos, MICROFILM CLERK-COPY MESSENGER [address] [place] [address] [facility] - Family MedicineStart: 04-19-2024 End: 56-44-6488Mjrzlnu encounter jtowwagnf75/28/2024 2:45 PM EDT Office Visit [facility] - Family Medicine [address] [place] [id number] Geovanni Nj, DO [address], [place] [facility] Medicine - Family MedicineStart: 03-16-2024 End: 18-97-6091Hhliulo encounter lckpwatyd00/25/2024 11:15 AM EDT Office Visit [facility] - [facility] [address] [place] [id number] Geovanni Nj, DO [address] [place] [address] [facility] Internal Medicine - Family MedicineStart: 03-08-2024 End: 82-79-6306Qhkbspkrt to same day surgery zvpyks6403/08/2024 10:00 AM EDT - 03/08/2024 11:00 AM EDT Surgery [facility] [address] [place] [address] Geovanni Nj, DO [address] [place] [address] COLONOSCOPY DIAGNOSTIC / SCREENING [68882 (CPT )][facility]oscopyComment on above:COLONOSCOPY DIAGNOSTIC / SCREENING [15901 (CPT )]Start: 44-27-9305Zwuhmxxiox hospital visit by cludvuzpq14/17/2024 10:00 AM EDT Hospital Encounter [facility] [address] [place] [address] Geovanni Nj, DO [address] [place] [address] [facility]: 03-08-2024 End: 07-56-2409Hvwvfabzpvc flx dx w/collj spec when pfrmdFREMONT ENDOSCOPYStart: 03-07-2024 End: 01-78-8309mgufqoaeyj51/16/2024 3:40 PM EDT Support Visit [facility] - Pre Admit [address] [address] [facility] Pre AdmitStart: 01-27-2024 End: 75-78-8793Bcrlqpa encounter owwnwlobp74/06/2024 2:40 PM EDT Office Visit [facility] Internal Medicine - Family Medicine [address] [place] [address] Cande Rand, MICROFILM CLERK-MANUFACTURING INDUSTRIAL ENGINEER [address] [place] [address] [facility] Internal Medicine - Family MedicineStart: 44-51-6336Qhqekigxy for malignant neoplasm of cervixPap SmearAdena Pike Medical Center SystemStart: 1996 DTaP,Tdap and Td Vaccines (1 - Tdap)DTaP,Tdap and Td Vaccines (1 - Tdap) [facility]: 96-05-4474Eobdm BMI Follow Up PlanAdult BMI Follow Up [facility] End: 15-60-5817U-reactive proteinC-reactive protein Lab Routine IBD (inflammatory bowel disease) 1 Occurrences starting 03/16/2024 until 03/16/2025 [facility] Work Phone: Comment on above:1 Occurrences starting 03/16/2024 until 03/16/2025 End: 73-06-1597SjthwzdqsyfMjsqvwmkjsl GI Routine Screen for colon cancer 1 Occurrences starting 01/07/2024 until 01/06/2025[facility] Work Phone: Comment on above:1 Occurrences starting 01/07/2024 until 01/06/2025 End: 43-18-5237OaatejdbcamTydgoawiopp GI Routine Colitis 1 Occurrences starting 02/08/2024 until 02/07/2025[facility] Work Phone: Comment on above:1 Occurrences starting 02/08/2024 until 5Colonoscopy flx dx w/collj spec when pfrmdCOLONOSCOPY DIAGNOSTIC / SCREENING ColitisFREMONT ENDOSCOPY End: 79-15-4107Bytgtztkmge Neutrophilic Ab, SCytoplasmic Neutrophilic Ab, S Lab Routine IBD (inflammatory bowel disease) 1 Occurrences starting 03/16/2024 until 03/16/2025[facility] SystemComment on above:1 Occurrences starting 03/16/2024 until 03/16/2025Patient EducationHemorrhoids ED Colitis - Discharge instructions Know your [facility] Work Phone: [facility] Payers DatePayer CategoryPayerPolicy ID2025Self-pay2023MedicaidCARESOURCE MEDICAID [facility] HMO [id number] 2023-Present [phone] [address], [place] [id number] Medicaid [facility] MEDICA[facility] [id number] [id number] 2.16840.1.318825.3.57[id number] 2.0.1.570865.3.57[id number] 2.0.1.436422.3.57[id number] 2.0.1.125119.3.57[id number] 2.0.1.235458.3.57[id number] 2.0.1.211048.3.57[id number] 2.0.1.283963.3.57[id number] 2.0.1.693284.3.57[id number] 2.0.1.689413.3.57[id number] 2.0.1.312143.3.57[id number] 2.840.1.109447.3.57[id number] 2.840.1.556439.3.57[id number] 2..840.1.791087.3.57[id number] 2.16.840.1.957609.3.57[id number] 2..840.1.454185.3.57[id number] 2..840.1.107971.3.579.2.531 Social History DateTypeDetailFacilityStart: 01-07-2024 End: 83-39-6830Rkgpllj smoking status NHISEx-smokerCincinnati [facility] Medical Center History of tobacco useCurrent smokerCincinnati VA Medical CenterHistory of tobacco useCigarette SmokerNovant Health, [facility]htart: 01-07-2024 End: 53-69-5160Hwdxmkqlpu smoked current (pack per day) - Reported0.5PZanesville City Hospital SystemStart: 62-01-2327Rjqwlqq use and exposureSmokeless tobacco non-user [facility]: 01-27-2024 End: 82-73-5484Umfwcjhdd beverage intakeEx-drinker (finding)[facility]: 01-27-2024 End: 07-09-6238Enuhrwn use panelCincinnati VA Medical CenterAdolescent depression screening jyyjagrdwj8UbpJdhzskNovant Health, [facility]htart: 18-03-4293Vwrtbgz Comment RarelyAdena Pike Medical Center SystemStart: 50-90-1165Iii assigned at birthNot on file [facility]: 05-13-2022 End: 19-22-4464BbfTbwvva (finding)[facility] CenterTobacco smoking status NHISUnknown if ever smokedUc West Chester Hospital Work Phone: Start: 96-30-5998Kxw Assigned At BirthFeOhioHealth Grove [facility] Goals DatePatient GoalDesired Activity/State Clinical Notes 11-10-2023 to 04-26-2025 Note Date & DcqfQbefJszlamut31-39-2756 Miscellaneous Notes* Telephone Encounter - Cynthia Oneil CMA - 04/26/2025 2:33 PM EDT Care Coordination Outreach performed to coordinate overdue appointments, testing, and/or follow-up care: Yes Audit/Outreach Date: April 26, 2025 Reason: Well Person Method: Telephone and Letter Outreach Attempt: First Outcome: Left Message and Letter Sent Next PCP Appointment: N/A Tests/Referrals Pended: N/A Resources/Education Provided: Additional Comments: Unable to reach patient by telephone to schedule appointment. Letter sent. documented in this encounterCincinnati VA Medical Center09-04-2025 Telephone encounter Note* Telephone Encounter - Cynthia Oneil CMA - 04/26/2025 2:33 PM EDT Care Coordination Outreach performed to coordinate overdue appointments, testing, and/or follow-up care: Yes Audit/Outreach Date: April 26, 2025 Reason: Well Person Method: Telephone and Letter Outreach Attempt: First Outcome: Left Message and Letter Sent Next PCP Appointment: N/A Tests/Referrals Pended: N/A Resources/Education Provided: Additional Comments: Unable to reach patient by telephone to schedule appointment. Letter sent. [facility]04-01-2025 [place] [address] Colonoscopy Procedure Report Signed Patient: Alva Lake MR#: [id number] : 1975 Acct:[id number] Age/Sex: 49 / F Adm Date: 5 Loc: Room: Type: [facility] Attending Dr: Belinda Medina MD Copies to: MD Geovanni Mack,DO~ Colonoscopy Date/Provider 11/21/2024 Belinda Medina MD Colonoscopy Findings: Procedure: Colonoscopy with biopsy Indication: 49-year-old female with ulcerative colitis here for colonoscopy to assess disease activity Pre-operative diagnosis: Ulcerative colitis Post-operative diagnosis: Roldan 1 UC in the descending and sigmoid, Roldan 3 UC in the rectum Sedation: propofol per anesthesia dept O2 oximetry, hemodynamic monitoring was performed pre, during, and post procedure. Patient was identified, H&P completed, patient was given full explanation of the procedure as well as associatedrisks and written consent wasobtained prior to procedure. Patient expressed complete understanding of the procedure as well as alternatives to the procedure and to anesthesia and agreed to proceed with the procedure as indicated. Patient was immediately reassessed prior to IV sedation. Under IV sedation, patient was placed in the left lateral decubitus position. Digital rectal exam was performed and normal. Colonoscope was inserted and passed proximally to the cecum, which was identified by the ileocecal valve, appendiceal orifice and cecal floor. Colonoscope was slowly withdrawnwith the findings as below. Dameron bowel prep score was good. Findings: Biopsies were done from the terminal ileum, right colon, transverse colon, descending colon, sigmoid colon and rectum using biopsy forceps Terminal ileum: Normal Cecum: Normal. Ascending colon: Normal. Hepatic flexure: Normal. Transverse colon: Normal. Splenic flexure: Normal. Descending colon: Erythema, decreased vascular pattern and mild friability consistent with Roldan 1 ulcerative colitis Sigmoid colon: Erythema, decreased vascular pattern and mild friability consistent with Roldan 1 ulcerative colitis Rectum: Friable erythematous mucosa with ulceration consistent with Roldan 3 ulcerative colitis Retroflexed views: Rectum did show internal hemorrhoids. Biopsy taken: Yes Complications: None EBL: Minimal Recommendations: -Will discuss Biologics treatment with the patient -Follow up pathology Following a period of recovery, patient was seen and given full explanation of the procedure. Patient tolerated the procedure well and will be discharged in satisfactory, stable condition. Belinda Medina M.D. Documented By: Belinda Medina MD 11/21/24 0959 Signed By: 11/21/[address] [facility]03-20-2025 Evaluation note* Author Belinda Medina [facility] 2024 11:88wh29-etnz-ydf female referred to the GI clinic for evaluation of ulcerative colitis. Patient had a colonoscopy a year ago which showed left-sided colitis consistent with UC. Patient is currently on mesalamine 400 mg twice daily. Will arrange for colonoscopy. Will check CBC CRP and fecal calprotectin Will increase mesalamine to 1.2 g twice daily [facility] Work Phone: 1(373) 854-277303-20-2025 Evaluation note* Author Belinda [facility] HospitalAuthoredKelli 2024 11:47rs78-szlm-lyg female referred to the GI clinic for evaluation of ulcerative colitis. Patient had a colonoscopy a year ago which showed left-sided colitis consistent with UC. Patient is currently on mesalamine 400 mg twice daily. Will arrange for colonoscopy. Will check CBC CRP and fecal calprotectin Will increase mesalamine to 1.2 g twice daily Author jelly [facility] HospitalAuthored[facility] 2024 9:82xj24-smuv-okx female with ulcerative colitis came today for follow-up Patient had a colonoscopy a year ago which showed left-sided colitis consistent with UC. She was on mesalamine however she could not tolerated due to GI side effects including abdominal pain/cramping and nausea. Colonoscopy on showed Roldan 1 UC in the descending and sigmoid, Roldan 3 UC in the rectum. Patient started Humira 2 weeks ago - Will check CRP and fecal calprotectin in 6-month - Continue Humira - Continue to monitor side effects related to immunosuppression therapy [facility] Work Phone: 1(246) 934-544511-05-2024 History of Present illness Narrative* Geovanni Nj, DO - 06/27/2024 4:00 PM EST PROGRESS NOTE Patient - Alva Lake Age - 49 y.o. - 1975 [...] Final Other Testing No results found. Geovanni Nj DO., [facility] Office: [phone] documented in this encounterCincinnati VA Medical Center10-17-2024 Miscellaneous Notes* Telephone Encounter - Julia Boss CMA - 06/08/2024 1:13 PM EDT Pt called and states that since she has been taking the pepcid her indigestion is worse especially at night. She has been taking it for about a week. Please advise. * Telephone Encounter - Geovanni Nj DO - 06/08/2024 1:13 PM EDT Message [...] note. Pt verbalizes understanding. documented in this encounterCincinnati VA Medical Center10-17-2024 Telephone encounter Note* Telephone Encounter - Julia Boss CMA - 06/08/2024 1:13 PM EDT Pt called and states that since she has been taking the pepcid her indigestion is worse especially at night. She has been taking it for about a week. Please advise. [facility]10-17-2024 Telephone encounter Note* Telephone Encounter - Geovanni Nj DO - 06/08/2024 1:13 PM EDT Message [...] her bed on a brick or 2x4 [facility]10-17-2024 Telephone encounter Note* Telephone Encounter - Julia Boss CMA - 06/08/2024 1:13 PM EDT Called pt. Read note. Pt verbalizes understanding. [facility]10-09-2024 History of Present illness Narrative* Geovanni Nj DO - 05/31/2024 4:30 PM EDT IM PROGRESS NOTE Patient - Alva Lake Age - 49 y.o. - 1975 ASSESSMENT & PLAN 1. 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[facility]) -I reviewed the biopsy reports previously taken [...] -will monitor serially Subjective FOLLOW-UP: EMERGENCY DEPARTMENT ([place]) and hospital visit ([place]) Patient was discharged from the facility on: 05/31/2024 from the ED, and 05/25/2024 for hospital visit at [place] Diagnosis was: 1. Was admitted to [place] for nausea vomiting and colitis. CT showed [...] so presented to the emergency department at [facility]. Work-up and testing included: Surgery or biopsies? [...] She has been referred to Gastroenterology at [facility], but her appointment is not until [...] Exam Vitals reviewed. Exam conducted with a sequencing machine operator present (Mother). Constitutional: General: She is [...] findings in the abdomen or pelvis. Geovanni Nj DO., [facility] Office: [phone] documented in this encounterCincinnati VA Medical Center10-05-2024 Miscellaneous Notes* Telephone Encounter - Mandy Polo RN - 05/27/2024 8:17 AM EDT ----- Message from Eun sent at 05/27/2024 8:13 AM EDT ----- Contract: 198 - Was just discharged yesterday from ER and the 2 antibiotic pills she has questions about. * Telephone Encounter - Mandy Polo RN - 05/27/2024 8:17 AM EDT Contract: 198 Was hospitalized ([place]) x 5 days for a Colitis flair [...] her on Augmentin Will speak to provider identification clerk to discuss Reason for Disposition [1] Follow-up call from patient regarding patient's clinical status AND [2] information urgent Protocols used: PCP Call - No Triage-A- * Telephone Encounter - Mandy Polo RN - 05/27/2024 8:[address] Nj on his cell phone- warm transferred him to [facility] documented in this encounterCincinnati VA Medical Center10-05-2024 Telephone encounter Note* Telephone Encounter - Mandy Polo RN - 05/27/2024 8:17 AM EDT ----- Message from Eun sent at 05/27/2024 8:13 AM EDT ----- Contract: 198 - Was just discharged yesterday from ER and the 2 antibiotic pills she has questions about. [facility]10-05-2024 Telephone encounter Note* Telephone Encounter - Mandy Polo RN - 05/27/2024 8:17 AM EDT Contract: 198 Was hospitalized ([place]) x 5 days for a Colitis flair [...] her on Augmentin Will speak to provider identification clerk to discuss Reason for Disposition [1] Follow-up call from patient regarding patient's clinical status AND [2] information urgent Protocols used: PCP Call - No Triage-A-AH [facility]10-05-2024 Telephone encounter Note* Telephone Encounter - Mandy Polo RN - 05/27/2024 8:[address] Nj on his cell phone- warm transferred him to [facility]09-10-2024 Miscellaneous Notes* Telephone Encounter - Herminio Leos CMA - 05/02/2024 10:24 AM EDT Message noted. I have no other medications that I can offer. I suggest that we have her see a puffer tender at this time. Closest are in [place]. I can make arrangements if she is willing Note documented in this encounterCincinnati VA Medical Center09-10-2024 Telephone encounter Note* Telephone Encounter - Herminio Leos CMA - 05/02/2024 10:24 AM EDT Message noted. I have no other medications that I can offer. I suggest that we have her see a puffer tender at this time. Closest are in [place]. I can make arrangements if she is willing Note [facility] Best Money [id number] Miscellaneous Notes* Telephone Encounter - Herminio Leos [...] and correct. * Telephone Encounter - Geovanni Nj DO - 05/01/2024 2:25 PM EDT Message noted. I have no other medications that I can offer. I suggest that we have her see a puffer tender at this time. Closest are in [place]. I can make arrangements if she is willing * Telephone Encounter - Delmis Red CMA - 05/01/2024 2:25 PM EDT Patient agrees to see specialist * Telephone Encounter - Geovanni Nj DO - 05/01/2024 2:25 PM EDT Message noted. A referral to [facility], was sent today The patient can schedule her appointment at any time. documented in this encounterCincinnati VA Medical Center09-09-2024 Telephone encounter Note* Telephone Encounter - Herminio Leos CMA - 05/01/2024 2:25 PM EDT Pt called and would like to let you know that she had side effects of new medication. It caused herto have nausea and cramping since last week she stopped after 3 days and is feeling better. Do you want to try something else? Pharmacy is listed and correct. [facility]09-09-2024 Telephone encounter Note* Telephone Encounter - Geovanni Nj DO - 05/01/2024 2:25 PM EDT Message noted. I have no other medications that I can offer. I suggest that we have her see a puffer tender at this time. Closest are in [place]. I can make arrangements if she is willing [facility]09-09-2024 Telephone encounter Note* Telephone Encounter - Delmis Red CMA - 05/01/2024 2:25 PM EDT Patient agrees to see specialist [facility]09-09-2024 Telephone encounter Note* Telephone Encounter - Geovanni Nj DO - 05/01/2024 2:25 PM EDT Message noted. A referral to Shakira Arias at [facility], was sent today The patient can schedule her appointment at any time. [facility]08-28-2024 History of Present illness Narrative* Geovanni Nj DO - 04/19/2024 2:30 PM EDT IM PROGRESS NOTE Patient - Alva Lake Age - 49 [facility] 1975 [id number] ASSESSMENT & PLAN 1. IBD (inflammatory bowel [...] Exam Vitals reviewed. Exam conducted with a sequencing machine operator present (Mother). Constitutional: General: She is [...] esterase MEÑO 02/10/2024 Negative Negative^Negative Final Nitrite MEÑO 02/10/2024 Negative Negative^Negative Final Ph 02/10/2024 6.0 5.0 - 8.5 Final Protein MEÑO 02/10/2024 30 (A) Negative^Negative mg/dL Final Urine glucose MEÑO 02/10/2024 Negative Negative^Negative mg/dL Final Ketones MEÑO 02/10/2024 80 (A) Negative^Negative mg/dL Final Urobilinogen MEÑO 02/10/2024 0.2 <1.1 eu/dL Final Bilirubin MEÑO 02/10/2024 Small (A) Negative^Negative Final Hemoglobin MEÑO 02/10/2024 Negative Negative^Negative Final Nursing urine 02/10/2024 Negative Negative^Negative Final Other Testing No results found. Geovanni Nj DO., [facility] Office: [phone] documented in this encounterCincinnati VA Medical Center07-25-2024 History of Present illness Narrative* Geovanni Nj DO - 03/16/2024 11:15 AM EDT IM PROGRESS NOTE Patient - Alva Lake Age - 48 y.o. - 1975 [...] hadbeen diagnosed with C difficile colitis at [facility] earlier this year, and had a [...] Exam Vitals reviewed. Exam conducted with a sequencing machine operator present (Mother). Constitutional: General: She is [...] 17 - 40 U/L Final Specific gravity [facility] 02/10/2024 1.025 1.003 - 1.035 Final Leukocyte esterase MEÑO 02/10/2024 Negative Negative^Negative Final Nitrite [facility] 02/10/2024 Negative Negative^Negative Final Ph 02/10/2024 6.0 5.0 - 8.5 Final Protein [facility] 02/10/2024 30 (A) Negative^Negative mg/dL Final Urine glucose MEÑO 02/10/2024 Negative Negative^Negative mg/dL Final Ketones [facility] 02/10/2024 80 (A) Negative^Negative mg/dL Final Urobilinogen [facility] 02/10/2024 0.2 <1.1 eu/dL Final Bilirubin [facility] 02/10/2024 Small (A) Negative^Negative Final Hemoglobin [facility] 02/10/2024 Negative Negative^Negative Final Nursing urine [...] others. Clinical and endoscopic correlation recommended. Geovanni Nj DO., [facility]: [phone] documented in this encounterCincinnati VA Medical Center07-16-2024 Nurse Note* Perioperative Nursing Note - Daily [...] you have a Living Will/Durable Power of [place] for Health Care that is not on [...] after you have bathed. 5. NO nail citizen of [place]/acrylic on at least one finger. If you are having a hand, wrist or foot surgery then all nail citizen of [place] and artificial/acrylic nails must be removed from [...] please call the Preadmission Testing office at [phone], Mon.-Fri. 7 a.m.-3 p.m. Leave a voicemail if needed. Pre-Surgery Instructions: Medication Instructions escitalopram (LEXAPRO) 5 mg tablet Stop taking 0 days prior to procedure dicyclomine (BENTYL) 20 mg tablet Stop taking 0 days prior to procedure hyoscyamine (LEVSIN) 0.125 mg SL tablet Stop taking 0 days prior to procedure peg 3350-sod sulf,xjgk-uum-tcd 178.7-7.3-0.5 gram recon soln Check with prescribing doctor for instructions polyethylene glycol (GOLYTELY) 236-22.74-6.74 -5.86 gram solution Check with prescribing doctor forinstructions PROMETHEGAN 12.5 mg suppository Stop taking [address] [facility] [employer] Information [id number] Miscellaneous Notes* Perioperative Nursing Note - Daily [...] you have a Living Will/Durable Power of [place] for Health Care that is not on [...] after you have bathed. 5. NO nail citizen of [place]/acrylic on at least one finger. If you are having a hand, wrist or foot surgery then all nail citizen of [place] and artificial/acrylic nails must be removed from [...] please call the Preadmission Testing office at [phone], Mon.-Fri. 7 a.m.-3 p.m. Leave a voicemail if needed. Pre-Surgery Instructions: Medication Instructions escitalopram (LEXAPRO) 5 mg tablet Stop taking 0 days prior to procedure dicyclomine (BENTYL) 20 mg tablet Stop taking 0 days prior to procedure hyoscyamine (LEVSIN) 0.125 mg SL tablet Stop taking 0 days prior to procedure peg 3350-sod sulf,vplb-lrb-toc 178.7-7.3-0.5 gram recon soln Check with prescribing doctor for instructions polyethylene glycol (GOLYTELY) 236-22.74-6.74 -5.86 gram solution Check with prescribing doctor forinstructions PROMETHEGAN 12.5 mg suppository Stop taking 0 days prior to procedure documented in this encounterCincinnati VA Medical Center06-18-2024 History of Present illness Narrative* Geovanni Nj DO - 02/08/2024 9:15 AM EDT IM PROGRESS NOTE Patient - Alva Lake Age - 48 [facility]. [facility] 1975 [id number] ASSESSMENT & PLAN 1. Colitis -patient with [...] weeks ago when she was seen in [place] ED, diagnosed with colitis, and placed on antibiotics. Her symptoms never really went away, and she returned to the emergency department for evaluation. -at that time she was diagnosed with C difficile colitis, was placed on Flagyl and steroids and discharged home. She felt terrible with nausea vomiting and generalized weakness. -she returned to [facility] ED, was admitted to the hospital for [...] Exam Vitals reviewed. Exam conducted with a sequencing machine operator present (Mother). Constitutional: General: She is [...] Final Other Testing No results found. Geovanni Nj DO., [facility] Office: [phone] documented in this encounterCincinnati VA Medical Center06-06-2024 History of Present illness Narrative* Cande Rand, MAEGAN-MANUFACTURING INDUSTRIAL ENGINEER - 01/27/2024 2:40 PM EDT Subjective Patient ID: Alva Lake is a 48 y.o. female. She was in the hospital for intractable vomiting The cob sawyer initially thought she had pancreatitis but eventially [...] Thought content normal. Judgment: Judgment normal. Assessment/Plan Alva was seen today for hospital follow-up. Diagnoses [...] follow up in the office with Dr Nj following the colonoscopy She may continue the hycosamine for cramping MIRELLA Oconnell 01/27/24 1637 [facility] Miscellaneous Notes* Telephone Encounter - Felisha Obrien CMA - 01/24/2024 12:03 PM EDT Pt called requesting a refill she knows they are from the hospital but wanted to know if you could refill them she has 1 left just in case and plans to talk to you about them at her visit at the end of the week documented [facility] Telephone encounter Note* Telephone Encounter - Felisha Obrien CMA - 01/24/2024 12:03 PM EDT Pt called requesting a refill she knows they are from the hospital but wanted to know if you could refill them she has 1 left just in case and plans to talk to you about them at her visit at the end of the week [facility] History of Present illness Narrative* MIRELLA Oconnell - 01/07/2024 9:40 AM EDT Subjective Patient ID: Alva Lake is a 48 y.o. female. Here [...] Thought content normal. Judgment: Judgment normal. Assessment/Plan Alva was seen today for follow-up. Diagnoses and [...] to ensure there is no underling abnormality Cande Rand, MAEGAN-MANUFACTURING INDUSTRIAL ENGINEER 01/07/24 1126 documented in this encounterC[facility] Evaluation note* [id number] female referred to the GI clinic for evaluation of ulcerative colitis. Patient had a colonoscopy a year ago which showed left-sided colitis consistent with UC. Patient is currently on mesalamine 400 mg twice daily. Will arrange for colonoscopy. Will check CBC CRP and fecal calprotectin Will increase mesalamine to 1.2 g twice daily [facility] Work Phone: Evaluation note* Diagnosis Colitis due to Clostridioides difficile- Primary [facility] Diagnosis Colitis- Primary Other and unspecified noninfectious gastroenteritis and colitis Hypokalemia Hypopotassemia Reactive depression Screen for colon cancer Special screening for malignant neoplasms, colon [facility] Diagnosis Colitis- Primary Other and unspecified noninfectious gastroenteritis and colitis Hypotension, unspecified hypotension type [facility] Diagnosis IBD (inflammatory bowel disease)- Primary Other and unspecified noninfectious gastroenteritis and colitis Colitis due to Clostridioides difficile documented [facility]* Diagnosis IBD (inflammatory bowel disease)- Primary Other and unspecified noninfectious gastroenteritis and colitis [facility] Diagnosis 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CMS-HCC)- Primary IBD (inflammatory bowel disease) Other and unspecified noninfectious gastroenteritis and colitis Heartburn Nausea and vomiting, unspecified vomiting type Hyponatremia with extracellular fluid depletion Hyposmolality and/or hyponatremia documented in [facility] Diagnosis IBD (inflammatory bowel disease) Other and unspecified noninfectious gastroenteritis and colitis Heartburn [facility] Additional Instructions DISCHARGE INSTRUCTIONS FOR [...] NOT operate machinery such as power tools, [employer] mowers, snow blowers, sewing machines, etc. for 24 hours. - [...] have any problems. -Follow-up pathology -Office number [phone]. [facility] Work Phone: InstructionsNot on filedocumented in this encounter [facility] filedocumented in this encounter [facility]Not on filedocumented in this encounter [facility] on filedocumented in this encounter [facility] on filedocumented in this encounter [facility] on filedocumented in this encounter [facility]Not on filedocumented in this encounter [facility] filedocumented in this encounter [facility]Not on filedocumented in this encounter [facility] Summary Purpose Family History Relationship Condition Age at Onset Recorded Date/T prabhakar father Unknown motherDiabetes mellitusUnknownHeart diseaseUnknownHistory of strokeUnknown Advance Directives Advance Directive Response Recorded Date/ Time Advance Directives No November 01 2:50pm Reason for Referral SpecialtyDiagnoses / ProceduresReferred By ContactReferred To Contact Diagnoses Screen for colon cancer Procedures Colonoscopy Colonoscopy Ann Aviva, MICROFILM CLERK-MANUFACTURING INDUSTRIAL ENGINEER [address] [place] [address] Referral IDStatusReasonStart DateExpiration DateVisits RequestedVisits [id number] Review Chief Complaint and Reason for Visit Chief Complaint Admit Date Refer: ulcerative rectosigmoiditis November 09, 2024 11:05am Chief Complaint Admit Date Refer: ulcerative rectosigmoiditis November 09, 2024 11:05am UC November 21, 2024 8:08 am November 21, 2024 9:59 am Chief Complaint Admit Date Refer: ulcerative rectosigmoiditis November 09, 2024 11:05am UC November 21, 2024 8:08 am UC November 21, 2024 9:59 am January 22, 2025 8:29a m Reason for Visit Admit Date Ulcerative colitis January 22, 2025 8:29a m Additional Source Comments INFORMATION SOURCE (unrecogn ized section and content) DATE CREATED AUTHOR 08/29/2019 [facility] DATE CREATED AUTHOR AUTHOR'S ORGANIZ ATION 01/10/2024 [facility] DATE CREATED AUTHOR AUTHOR'S ORGANIZ ATION 08/11/2024 [facility] DATE CREATED AUTHOR AUTHOR'S ORGANIZ ATION 12/01/2024 [facility] DATE CREATED AUTHOR AUTHOR'S ORGANIZ ATION 12/03/2024 [facility] Reason for Visit (unrecogniz ed section and content) ReasonCommentsHospital Follow-upPancreatitis, ileus c-dificilReasonComments Follow-upER F/UReasonOnset DateCommentsMed Fobawc3601/24/2024easonComments Follow-upFrom 02/02ReasonCommentsFollow-upcolonoscopyReasonCommentscolitisGo over Lab results with her. Colitis coming back in the last 2 weeksReasonOnset Date CommentsMedication Qmgjjyc40/05/2024ReasonCommentsFollow-upReasonCommentsGI ProblemReasonOnset OyzdQvhhrqcjWvpqfvaunmp70/04/2025 Care Teams (unrecognized sec tion and content) Team MemberRelationshipSpecialtyStart DateEnd Date Geovanni Nj DO [address] [place] [address] PCP - GeneralInternal Medicine01/27/24Team MemberRelationshipSpecialtyStart Date End Date Cande Rand, MICROFILM CLERK-MANUFACTURING INDUSTRIAL ENGINEER [address] [place] [address] PCP - GeneralInternal Rczkxlvt98/6/23Team MemberRelationshipSpecialtyStart Date End Date Cande Rand, MICROFILM CLERK-MANUFACTURING INDUSTRIAL ENGINEER [address] [place] [address] PCP - GeneralInternal Juldfard80/6/23Team MemberRelationshipSpecialtyStart Date End Date Cande Rand, MICROFILM CLERK-MANUFACTURING INDUSTRIAL ENGINEER [address] [place] [address] PCP - GeneralInternal Fivwludo07/6/23Team MemberRelationshipSpecialtyStart Date End Date Geovanni Nj DO [address] [place] [address] PCP - GeneralInternal Medicine01/27/24Team MemberRelationshipSpecialtyStart Date End Date Geovanni Nj DO [address] [place] [address] PCP - GeneralInternal Medicine01/27/24Team MemberRelationshipSpecialtyStart Date End Date Geovanni Nj [address] [place] [address] PCP - GeneralInternal Medicine01/27/24Team MemberRelationshipSpecialtyStart Date End Date Geovanni Nj DO [address] [place] [address] PCP - GeneralInternal Medicine01/27/24Team MemberRelationshipSpecialtyStart Date End Date Berniecarolinapatric Geovanni Jeannette DO [address] [place] [address] PCP - GeneralInternal Medicine01/27/24Team MemberRelationshipSpecialtyStart Date End Date Everettepatric Geovanni Jeannette DO [address] [place] [address] PCP - GeneralInternal Medicine01/27/24Team MemberRelationshipSpecialtyStart Date End Date Geovanni Nj DO [address] [place] [address] PCP - GeneralInternal Medicine01/27/24 Team Status: Active Member Role Status Dates PHYSICIAN NO FAMILY Primary Care Provider Active Team Status: Inactive Member Role Status Dates PHYSICIAN NO FAMILY Primary Care Provider Active Start: November 09, 2024 End: November 09, 2024ImaBeatrice Stuart ProviderActiveStart: November 09, 2024 End: November 09, 2024 Team Status: Active Member Role Status Dates Geovanni Nj DO Primary Care Provider Active Team Status: Inactive Member Role Status Dates Belinda Medina MD Attending Provider Active Start: November 21, 2024 End: November 21, 2024Letitiahang GibbscarolinaBurke spivey Care ProviderActiveStart: November 21, 2024 End: November 21, 2024 Team Status: Active Member Role Status Dates Belinda Medina MD Attending Provider, Other Provider Act walter Start: November 21, 2024 Geovanni EMIR Njhedy Care ProviderActiveStart: November 21, 2024 Team Status: Inactive Member Role Status Dates Geovanni Nj DO Primary Care Provider Active Sta rt: January 22, 2025 End: January 22, 2025ImaBeatrice Stuart ProviderActiveStart: January 22, 2025 End: January 22, 2025 Goals (unrecognized section and content) Goals may [...] BE BASED ON THE PRIMARY CLINICAL RECORDS. [facility]. provides no warranty or guarantee of the accuracy or completeness of information in this document.
[2025-08-02 16:09] LABS: Calprotectin, Fecal 87 ug/g (0-120)
== END 2025-07-31 13:28 | disposition home or self-care (01) ==
LOC: LAB 13:29
PROVIDERS: Visit Provider Internal Medicine
DX: K51.90 Ulcerative colitis, unspecified, without complications (principal)
CPT/HCPCS: 36415; 83993; 86140